=== PATIENT | male | born 1955 | race Caucasian/White ===

== ENCOUNTER → 2016-11-04 | Outpatient (CLI) | payer BC ==
--- NOTE | 2016-11-04 13:50 | US ---
EXAMINATION TYPE: US venous doppler duplex LE RT DATE OF EXAM: 11/04/2016 1:38 PM COMPARISON: Prior right lower extremity venous ultrasound July 08, 2016 CLINICAL HISTORY: I82.409 Deep venous thrombosis Right lower extremity. Assess known thrombus to get off of thinners SIDE PERFORMED: Right TECHNIQUE: The lower extremity deep venous system is examined utilizing real time linear array sonog esteban with graded compression, doppler sonography and color-flow sonography. VESSELS IMAGED: External Iliac Vein (EIV) Common Femoral Vein Deep Femoral Vein Greater Saphenous Vein * Femoral Vein Popliteal Vein Small Saphenous Vein * Proximal Calf Veins (* superficial vessels) Right Leg: Appears to have chronic thrombus within proximal femoral vein, no acute process seen toda y contacted office and informed them patient refused looking at left leg today and that only chronic thrombus remains within right leg at one level Grayscale, color doppler, spectral doppler imaging performed of the deep veins of the lower extremiti es. There is normal flow, compressibility, vascular waveforms the right lower extremity with thick s ections and proximal superficial femoral vein that shows some chronic nonocclusive thrombus IMPRESSION: Interval improvement from prior exam with small amount of residual chronic thrombus in th e right proximal superficial femoral vein. No new acute DVT identified.
== END ==
LOC: RADUSWWP 12:31
PROVIDERS: ATTEND Family Medicine
DX: I82.511 Chronic embolism and thrombosis of right femoral vein (principal)

== ENCOUNTER → 2018-10-01 | Outpatient (CLI) | payer BC ==
[2018-10-01 10:27] LABS: Basophils # (A) 0.1 k/uL (0-0.2); Basophils % (A) 1 %; Eosinophils # (A) 0.4 k/uL (0-0.7); Eosinophils % (A) 6 %; HCT 43.6 % (39.0-53.0); HGB 14.8 gm/dL (13.0-17.5); Lymphocytes # (A) 1.7 k/uL (1.0-4.8); Lymphocytes % (A) 27 %; MCH 31.9 pg (25.0-35.0); MCHC 33.8 g/dL (31.0-37.0); MCV 94.2 fL (80.0-100.0); Mean Platelet Volume 6.1; Monocytes # (A) 0.5 k/uL (0-1.0); Monocytes % (A) 7 %; Neutrophils # (A) 3.6 k/uL (1.3-7.7); Neutrophils % (A) 56 %; Platelet Count 189 k/uL (150-450); RBC 4.63 m/uL (4.30-5.90); RDW 12.5 % (11.5-15.5); WBC 6.4 k/uL (3.8-10.6)
[2018-10-01 10:37] LABS: Appearance,Urine Cloudy (Clear); Bilirubin,Urine Negative (Negative); Blood,Urine Negative (Negative); Color,Urine Yellow; Glucose,Urine (UA) Negative (Negative); Ketones,Urine Negative (Negative); Leukocyte Esterase,Urine Negative (Negative); Mucus,Urine Rare /hpf; Nitrite,Urine Negative (Negative); Protein,Urine Negative (Negative); RBC,Urine <1 /hpf (0-5); Specific Gravity,Urine 1.018 (1.001-1.035); Squamous Epithelial Cell,Urine 1 /hpf (0-4); Urobilinogen,Urine <2.0 mg/dL (<2.0); WBC,Urine 1 /hpf (0-5)
[2018-10-01 11:54] LABS: Erythrocyte Sedimentation Rate 15 mm/hr (0-15)
[2018-10-01 16:50] LABS: Protein, Total 6.7 g/dL (6.2-8.2); Rheumatoid Factor 24 IU/mL (0-15); Streptolysin O Ab(ASO) 79 IU/mL (0-200)
[2018-10-01 16:55] LABS: ALT 33 U/L (10-49); AST 33 U/L (14-35); Albumin/Globulin Ratio 1.96 (1.60-3.17); Alkaline Phosphatase 60 U/L (41-126); Bilirubin, Conjugated <0.20 mg/dL (0.20-0.40); Calcium 9.6 mg/dL (8.7-10.3); Carbon Dioxide 24.1 mmol/L (21.6-31.8); Chloride 105 mmol/L (96-109); Creatine Kinase 153 U/L (35-257); Globulin 2.3 g/dL (1.6-3.3); Glucose 132 mg/dL (70-110); LDH 211 U/L (120-246); Phosphorus 3.4 mg/dL (2.4-5.1); Potassium 4.4 mmol/L (3.5-5.5); Sodium 138 mmol/L (135-145); Total Bilirubin 0.3 mg/dL (0.3-1.2); Total Protein 6.8 g/dL (6.2-8.2); Uric Acid 9.3 mg/dL (3.7-8.7)
[2018-10-01 16:59] LABS: Vitamin D 25 Hydroxy 42.3 ng/mL (30.0-100.0)
[2018-10-01 17:00] LABS: Parathyroid Hormone Intact 41.1 pg/mL (14.0-72.0)
[2018-10-01 17:48] LABS: Cyclic Citrullinated Pep IgG NEGATIVE (NEGATIVE); HIV 1 AB Non-Reactive (Non-Reactive); HIV AB P24 Non-Reactive (Non-Reactive); HIV P24 AG Non-Reactive (Non-Reactive)
[2018-10-01 18:12] LABS: Hepatitis C IgG Antibody Non-Reactive (Non-Reactive)
[2018-10-01 21:26] LABS: Hemoglobin A1C 6.6 % (4.0-6.0)
[2018-10-02 12:33] LABS: HLA B27 NEGATIVE
[2018-10-02 15:01] LABS: Angiotensin-1 Converting Enz. 25 U/L (8-52)
[2018-10-04 10:12] LABS: Hepatits C Virus RNA Not detected (Not detected); Hepatits C Virus RNA, Quant <12 IU/mL (<12); LOG HCV IU/mL <1.08 (<1.08)
[2018-10-04 18:34] LABS: Vitamin D, 1, 25-Dihydroxy 22 pg/mL (20 - 79)
[2018-10-05 10:19] LABS: Lyme IgG/IgM 0.1 Index
== END | disposition home or self-care (01) ==
LOC: LABWHC1 09:36
PROVIDERS: ATTEND Physical Medicine & Rehabilitation
DX: E78.5 Hyperlipidemia, unspecified (principal); I10 Essential (primary) hypertension; M51.16 Intervertebral disc disorders with radiculopathy, lumbar region; M51.17 Intervertebral disc disorders with radiculopathy, lumbosacral region; M47.26 Other spondylosis with radiculopathy, lumbar region; R20.2 Paresthesia of skin; M54.5 Low back pain; Z68.36 Body mass index [BMI] 36.0-36.9, adult
CPT/HCPCS: 36415; 80048; 80076; 81001; 82164; 82306; 82310; 82550; 82553; 82607; 82652; 83036; 83516; 83615; 83970; 84100; 84165; 84207; 84425; 84439; 84443; 84550; 85025; 85652; 86038; 86060; 86200; 86235; 86431; 86592; 86618; 86803; 86812; 87390; 87522

== ENCOUNTER → 2021-10-02 | Outpatient (CLI) | payer OTHER ==
[2021-10-02 10:39] VITALS: BP 143/76; PULSE 56; RESP 17; TEMP 97.9
--- NOTE | 2021-10-02 10:50 | P.CON ---
Consult Note - . Consult date: 10/02/21 Assessment/Plan:: HISTORY OF PRESENT ILLNESS: 66 -year-old male with at side as a referral from Dr. Albright presents today with lumbar DDD, spondylosis and facet arthropathy for evaluation. Patient states he has back pain for the last 10 years, 8 out of 10 in intensity, constant, achy, sharp with radiation of pain on the left side of his lumbar spine and down the back of his left lower extremity. Pain is provoked with standing and walking for periods of 30 minutes or more. 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 Pain is relieved with medications (Oxycodone IR 20mg #[address] Albright), injections in the past, fishing, massage from his and rest. Past Medical History: Deep Vein Thrombosis (DVT), Hypertension, DM II Past Surgical History / Comment(s): LT GRACE, 05-12-16 TOTAL RIGHT HIP R EPLACEMENT. RT KNEE SX. RT SHOULDER SX. COLONOSCOPY Social History: Former Tobacc User. Daily ETOH use. No illicit drug use. . 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 Family History: Mother- DM. Father- Spinal Meningitis/ . All: PCN, Ibuprofen. Meds: See list REVIEW OF ORGAN SYSTEMS: CONSTITUTIONAL: No fevers or chills. No recent weight loss. HEENT: No visual acuity loss, eye pain, difficulties with hearing. No nosebleeds. No difficulty swallowing. RESPIRATORY: Denies any troubles with breathing or dyspnea on exertion. CARDIOVASCULAR: Denies any chest pain, palpitations, or recent heart attacks. GASTROINTESTINAL: Denies fatty food intolerance. Has change in bowel habits and gas bloat. GENITOURINARY: Denies any blood in urine. Has increased urinary frequency. NEUROLOGICAL: + numbness and tingling along the distal extremities. No seizure disorders or headaches. MUSCULOSKELETAL: + back pain SKIN: No skin cancer. No rash. PSYCHIATRIC: Denies current depression or suicidal thoughts. ENDOCRINE: Denies current thyroid disorders. Denies any blood sugar glucose intolerance. HEME/LYMPHATIC: Denies any lumps and bumps around the neck. History of deep venous thrombosis. ALLERGY/IMMUNOLOGY: No immunoglobulin therapy. No immune deficiencies. BREAST: Denies current breast lumps, pain or nipple discharge. Physical Examinations : Constitutional : Cooperative , not in acute distress . HEENT: Neck supple. No Lymphadenopathy. Normal thyroid size . Eyes no ptosis , no icterus, no photophobia . Hearing intact. Normal oropharynx. No Thrush. Respiratory : Chest clear to auscultations bilaterally. No wheezing. No rhonchi. Cardiovascular : Regular rate and rhythm , S1 / S2. No S3 . No S4. Gastrointestinal : Abdomen soft. No tenderness. Bowel sounds x 4. No organomegaly . Genitourinary : Deferred. Neurologic : Cranial nerve II to XII intact. No focal neurological deficits. Psychiatric : alert & oriented x 3. Matching mood & appropriate affect. Judgment & insight intact. Lymphatic No Lymphadenopathy. Musculoskeletal : Cervical Spine Motor strength in the deltoid and biceps: Normal right side. Normal Left side Motor strength biceps and the wrist extensors: Normal right side . Normal left side Motor strength in the triceps muscle: Normal right side. Normal left side Deep tendon reflexes: Normal at the biceps. Normal at Brachioradialis. Normal at triceps Cervical facet loading test: positive bilaterally Spurling test: positive bilaterally Neck distraction test: positive bilater ally Joselyn sign: positive bilaterally Lumbar spine Motor strength lower extremities ,thigh and legs 5/5 Right side , 5/5 Left side Deep tendon reflexes : Normal Knee Jerk. Normal Ankle Jerk Vertebral body tenderness over L4, L5 Lumbar facet Loading Test: positive Right / positive Left over bilateral L4-L5, L5-S1, left greater than right Accompanying paraspinal muscle spasms within L4-L5, L5-S1 Range of motion of the lumbar spine Flexion 30 degrees, extension 10 degrees Straight Leg Raise test: Left/ Right positive at 30 degree Raegan test: positive right / positive left. Severe tenderness over the Sacroiliac joint on the Right / Left sides Gaenslen test: positive bilaterally Seated flexion test: positive bilaterally. Assessment/ Plan : Need to obtain MRI of the lumbar spine. Patient needs medical clearance for Xarelto. May return to our office for reevaluation. All questions answered. I have spent greater than 50 minutes on patient care today. Dr Hutchins was available by phone for the evaluation of this patient. The time was used to review the medical records including relevant urine studies and Prescription h istory (MAPs), review of the available imaging, evaluation and examination of the patient, coordination of care with the medical staff and if applicable referring physicians, as well as creation of the medical record PQRS Measure Charge Sheet Mode of Arrival: Ambulatory - Pain Location Left Lower Back Non-Pharmacological Interventions: Inactivity, Sitting Pharmacological Interventions: PRN Medication PQRS Narrative: Smoking Status Former smoker Blood Pressure 143/76 Pain Intensity [Left Lower 8 Back] Scale Used Numeric (1 - 10) Hx Alcohol Use (MH) No Home Medications: Ambulatory Orders Cholecalciferol [Vitamin D3 (25 Mcg = 1000 Iu)] 5,000 unit PO DAILY 05/08/16 Enalapril/Hydrochlorothiazide [Vaseretic 10-25 mg] 1 tab PO DAILY 05/08/16 Fenofibrate Nanocrystallized [Tricor] 145 mg PO DAILY 05/08/16 Multivitamin [Men's Multi-Vitamin] 1 tab PO DAILY 05/08/16 Pregabalin [Lyrica] 300 mg PO BID 05/08/16 Simvastatin [Zocor] 40 mg PO HS 05/08/16 atenoloL [Tenormin] 25 mg PO BID 05/08/16 ALPRAZolam [Xanax] 1 mg PO BID PRN 07/08/16 HYDROcodone/APAP 10-325MG [[facility] 10-325] 1 tab PO Q4HR PRN 07/08/16 Rivaroxaban [Xarelto] 15 mg PO BID-W/MEALS tab 07/10/16
== END ==
LOC: PNWHC3 09:35
PROVIDERS: ATTEND Physician Assistant Medical
DX: M51.36 Other intervertebral disc degeneration, lumbar region (principal); M47.816 Spondylosis without myelopathy or radiculopathy, lumbar region; Z87.891 Personal history of nicotine dependence; Z86.718 Personal history of other venous thrombosis and embolism; I10 Essential (primary) hypertension; E11.9 Type 2 diabetes mellitus without complications; Z88.6 Allergy status to analgesic agent; Z88.0 Allergy status to penicillin
CPT/HCPCS: 99211

== ENCOUNTER 2022-10-20 16:07 | Observation (INO) | payer MEDICARE, OTHER ==
--- NOTE | 2022-10-20 16:41 | ED ---
General Adult HPI - General Chief complaint: Shortness of Breath Stated complaint: Afib/congest heart failure Time Seen by Provider: 10/20/22 16:25 Source: patient, RN notes reviewed Mode of arrival: ambulatory Limitations: no limitations - History of Present Illness Initial comments: Patient is a pleasant 67-year-old male presenting to the emergency Department with shortness of breath. Symptoms have been occurring over a couple weeks now. No chest pain. No palpitations. Patient did see his doctor in [place] with concern for new-onset A. fib and possibly CHF. No history of either previously. Patient has had some leg edema. Patient's dyspnea does worsen with lying flat as well as exertion - Related Data Home Medications Medication Instructions Recorded Confirmed Enalapril/Hydrochlorothiazide 1 tab PO DAILY 05/08/16 10/20/22 [Vaseretic 10-25 mg] atenoloL [Tenormin] 25 mg PO BID 05/08/16 10/20/22 Alpha Lipoic Acid 1,200 mg PO BID 10/20/22 10/20/22 Aspirin EC [Ecotrin Low Dose] 81 mg PO DAILY 10/20/22 10/20/22 Atorvastatin [Lipitor] 40 mg PO DAILY 10/20/22 10/20/22 Cholecalciferol [Vitamin D3 (125 125 mcg PO BID 10/20/22 10/20/22 Mcg = 5000 Iu)] Magnesium 500 mg PO BID 10/20/22 10/20/22 Repaglinide [Prandin] 1 mg PO AC-TID 10/20/22 10/20/22 Rivaroxaban [Xarelto] 2.5 mg PO DAILY 10/20/22 10/20/22 Tamsulosin [Flomax] 0.4 mg PO DAILY 10/20/22 10/20/22 Turmeric Root Extract [Turmeric] 1,000 mg PO BID 10/20/22 10/20/22 metFORMIN HCL 500 mg PO BID 10/20/22 10/20/22 Allergies Allergy/AdvReac Type Severity Reaction Status Date / Time Penicillins Allergy Rash/Hives Verified 10/20/22 17:01 ibuprofen AdvReac BURING Verified 10/20/22 17:01 SENSATION IN ARMS Review of Systems ROS Statement: Those systems with pertinent positive or pertinent negative responses have been documented in the HPI. ROS Other: All systems not noted in ROS Statement are negative. Constitutional: Denies: chills Eyes: Denies: eye pain ENT: Denies: ear pain Respiratory: Reports: dyspnea Cardiovascular: Reports: dyspnea on exertion, orthopnea, edema Endocrine: Reports: fatigue Gastrointestinal: Denies: abdominal pain Genitourinary: Denies: dysuria Skin: Denies: rash Neurological: Denies: weakness Past Medical History Past Medical History: Deep Vein Thrombosis (DVT), Hypertension Additional Past Medical History / Comment(s): back pain, History of Any Multi-Drug Resistant Organisms: None Reported Additional Past Surgical History / Comment(s): LT GRACE, 05-12-16 TOTAL RIGHT HIP REPLACEMENT. RT KNEE SX. RT SHOULDER SX. COLONOSCOPY Past Anesthesia/Blood Transfusion Reactions: No Reported Reaction Past Psychological History: No Psychological Hx Reported Smoking Status: Never smoker Past Alcohol Use History: Daily Past Drug Use History: None Reported - Past Family History Mother Family Medical History: Diabetes Mellitus Father Additional Family Medical History / Comment(s): FROM SPINAL MENNINGITIS General Exam Limitations: no limitations General appearance: alert, in no apparent distress Head exam: Present: normocephalic Eye exam: Present: normal appearance Neck exam: Present: normal inspection Respiratory exam: Present: decreased breath sounds Cardiovascular Exam: Present: irregular rhythm GI/Abdominal exam: Present: soft. Absent: tenderness Extremities exam: Present: pedal edema. Absent: calf tenderness Neurological exam: Present: alert Psychiatric exam: Present: normal affect, normal mood Skin exam: Present: normal color Course Vital Signs 10/20/22 10/20/22 16:18 16:47 Temperature 97.4 F L Pulse Rate 100 77 Respiratory 18 20 Rate Blood Pressure 128/73 120/86 O2 Sat by Pulse 94 L 93 L Oximetry EKG Findings - EKG Results: EKG: interpreted by ERMD (Low QRS voltage. Septal Q waves.), normal axis, normal ST/T EKG shows: atrial fibrillation Medical Decision Making - Medical Decision Making Was pt. sent in by a medical professional or institution (, PA, PATHOLOGY TECHNICIAN, urgent care, hospital, or correction...) When possible be specific @ -Patient was sent in by his primary care physician in [facility] Did you speak to anyone other than the patient for history (EMS, parent, family, police, friend...)? What history was obtained from this source @ -No Did you review nursing and triage notes (agree or disagree)? Why? @ -I reviewed and agree with nursing and triage notes Were old charts reviewed (outside hosp., previous admission, EMS record, old EKG, old radiological studies, urgent care reports/EKG's, correction records)? Report findings @ -No old charts were reviewed Differential Diagnosis (chest pain, altered mental status, abdominal pain women, abdominal pain men, vaginal bleeding, weakness, fever, dyspnea, syncope, headache, dizziness, GI bleed, back pain, seizure, CVA, palpatations, mental health)? @ -Differential Dyspnea: Coronary syndrome, arrhythmia, tamponade, asthma, COPD, pulmonary embolism, pneumonia, pneumothorax, pulmonary effusion, anaphylaxis, diabetic ketoacidosis, flailed chest, pulmonary contusion, diaphragmatic rupture, anemia, neuromuscular, this is not meant to be an all-inclusive list. EKG interpreted by me (3pts min.). @ -As above X-rays interpreted by me (1pt min.). @ -Chest x-ray does show right greater than left effusions CT interpreted by me (1pt min.). @ -None done U/S interpreted by me (1pt. min.). @ -None done What testing was considered but not performed or refused? (CT, X-rays, U/S, labs)? Why? @ -None What meds were considered but not given or refused? Why? @ -None Did you discuss the management of the patient with other professionals (professionals i.e. , PA, PATHOLOGY TECHNICIAN, lab, RT, psych nurse, social science research assistant, lead neurodiagnostic technologist, teacher, booking police officer, family service caseworker)? Give summary @ -Case was discussed with practitioner Sandra Alvarado, who will admit covering hospital call with Dr. Vaca Was smoking cessation discussed for >3mins.? @ -No Was critical care preformed (if so, how long)? @ -No Were there social determinants of health that impacted care today? How? (Homelessness, low income, unemployed, alcoholism, drug addiction, transportation, low edu. Level, literacy, decrease access to med. care, senior living, rehab)? @ -No Was there de-escalation of care discussed even if they declined (Discuss DNR or withdrawal of care, Hospice)? DNR status @ -No What co-morbidities impacted this encounter? (DM, HTN, Smoking, COPD, CAD, Cancer, CVA, ARF, Chemo, Hep., AIDS, mental health diagnosis, sleep apnea, morbid obesity)? @ -None Was patient admitted / discharged? Hospital course, mention meds given and route, prescriptions, significant lab abnormalities, going to OR and other pertinent info. @ -Patient will be admitted with new-onset A. fib and CHF with cardiology consult. Patient will receive Lasix. Patient is already anticoagulated and rate is controlled. Undiagnosed new problem with uncertain prognosis? @ -No Drug Therapy requiring intensive monitoring for toxicity (Heparin, Nitro, Insulin, Cardizem)? @ -No Were any procedures done? @ -No Diagnosis/symptom? @ -New-onset A. fib, new-onset CHF Acute, or Chronic, or Acute on Chronic? @ -Acute, acute Uncomplicated (without systemic symptoms) or Complicated (systemic symptoms)? @ -Atrial fibrillation is Located with congestive heart failure Side effects of treatment? @ -No Exacerbation, Progression, or Severe Exacerbation? @ -No Poses a threat to life or bodily function? How? (Chest pain, USA, SD, pneumonia, PE, COPD, DKA, ARF, appy, cholecystitis, CVA, Diverticulitis, Homicidal, Suicidal, threat to staff... and all critical care pts) @ -No - Lab Data Result diagrams: 10/20/22 16:46 10/20/22 16:46 Lab Results 10/20/22 10/20/22 10/20/22 Range/Units 16:46 16:46 16:46 WBC 7.2 (3.8-10.6) k/uL RBC 5.05 (4.30-5.90) m/uL Hgb 16.0 (13.0-17.5) gm/dL Hct 47.4 (39.0-53.0) % MCV 93.9 (80.0-100.0) fL MCH 31.7 (25.0-35.0) pg MCHC 33.7 (31.0-37.0) g/dL RDW 13.1 (11.5-15.5) % Plt Count 221 (150-450) k/uL MPV 7.3 Neutrophils % 64 % Lymphocytes % 21 % Monocytes % 8 % Eosinophils % 5 % Basophils % 0 % Neutrophils # 4.6 (1.3-7.7) k/uL Lymphocytes # 1.5 (1.0-4.8) k/uL Monocytes # 0.6 (0-1.0) k/uL Eosinophils # 0.3 (0-0.7) k/uL Basophils # 0.0 (0-0.2) k/uL PT 10.8 (9.0-12.0) sec INR 1.0 (<1.2) APTT 25.7 (22.0-30.0) sec Sodium 136 L (137-145) mmol/L Potassium 4.4 (3.5-5.1) mmol/L Chloride 104 (98-107) mmol/L Carbon Dioxide 28 (22-30) mmol/L Anion Gap 4 mmol/L BUN 23 H (9-20) mg/dL Creatinine 1.02 (0.66-1.25) mg/dL Est GFR (CKD-EPI)AfAm 87 (>60 ml/min/1.73 sqM) Est GFR (CKD-EPI)NonAf 75 (>60 ml/min/1.73 sqM) Glucose 121 H (74-99) mg/dL Plasma Lactic Acid Juan Carlos (0.7-2.0) mmol/L Calcium 8.4 (8.4-10.2) mg/dL Magnesium 1.7 (1.6-2.3) mg/dL Total Bilirubin 0.5 (0.2-1.3) mg/dL AST 30 (17-59) U/L ALT 19 (4-49) U/L Alkaline Phosphatase 79 (38-126) U/L Troponin I (0.000-0.034) ng/mL NT-Pro-B Natriuret Pep pg/mL Total Protein 5.2 L (6.3-8.2) g/dL Albumin 2.4 L (3.5-5.0) g/dL TSH 3.360 (0.465-4.680) mIU/L Free T4 0.71 L (0.78-2.19) ng/dL Free T3 pg/mL 4.3 (2.8-5.3) pg/ml 10/20/22 10/20/22 10/20/22 Range/Units 16:46 16:46 16:46 WBC (3.8-10.6) k/uL RBC (4.30-5.90) m/uL Hgb (13.0-17.5) gm/dL Hct (39.0-53.0) % MCV (80.0-100.0) fL MCH (25.0-35.0) pg MCHC (31.0-37.0) g/dL RDW (11.5-15.5) % Plt Count (150-450) k/uL MPV Neutrophils % % Lymphocytes % % Monocytes % % Eosinophils % % Basophils % % Neutrophils # (1.3-7.7) k/uL Lymphocytes # (1.0-4.8) k/uL Monocytes # (0-1.0) k/uL Eosinophils # (0-0.7) k/uL Basophils # (0-0.2) k/uL PT (9.0-12.0) sec INR (<1.2) APTT (22.0-30.0) sec Sodium (137-145) mmol/L Potassium (3.5-5.1) mmol/L Chloride (98-107) mmol/L Carbon Dioxide (22-30) mmol/L Anion Gap mmol/L BUN (9-20) mg/dL Creatinine (0.66-1.25) mg/dL Est GFR (CKD-EPI)AfAm (>60 ml/min/1.73 sqM) Est GFR (CKD-EPI)NonAf (>60 ml/min/1.73 sqM) Glucose (74-99) mg/dL Plasma Lactic Acid Juan Carlos 1.7 (0.7-2.0) mmol/L Calcium (8.4-10.2) mg/dL Magnesium (1.6-2.3) mg/dL Total Bilirubin (0.2-1.3) mg/dL AST (17-59) U/L ALT (4-49) U/L Alkaline Phosphatase (38-126) U/L Troponin I <0.012 (0.000-0.034) ng/mL NT-Pro-B Natriuret Pep 419 pg/mL Total Protein (6.3-8.2) g/dL Albumin (3.5-5.0) g/dL TSH (0.465-4.680) mIU/L Free T4 (0.78-2.19) ng/dL Free T3 pg/mL (2.8-5.3) pg/ml Disposition Clinical Impression: Congestive heart failure, New onset a-fib Disposition: ADMITTED IP TO THIS HOSP Is patient prescribed a controlled substance at d/c from ED?: No Referrals: Tomasz Canales MD [Primary Care Provider] - 1-2 days Time of Disposition: 18:15
[2022-10-20 17:00] LABS: Basophils % (A) 0 %; Eosinophils # (A) 0.3 k/uL (0-0.7); Eosinophils % (A) 5 %; HCT 47.4 % (39.0-53.0); Lymphocytes # (A) 1.5 k/uL (1.0-4.8); Lymphocytes % (A) 21 %; MCH 31.7 pg (25.0-35.0); MCHC 33.7 g/dL (31.0-37.0); MCV 93.9 fL (80.0-100.0); Mean Platelet Volume 7.3; Monocytes # (A) 0.6 k/uL (0-1.0); Monocytes % (A) 8 %; Neutrophils # (A) 4.6 k/uL (1.3-7.7); Neutrophils % (A) 64 %; Platelet Count 221 k/uL (150-450); RBC 5.05 m/uL (4.30-5.90); RDW 13.1 % (11.5-15.5); WBC 7.2 k/uL (3.8-10.6)
[2022-10-20 17:10] LABS: Partial Thromboplastin Time 25.7 sec (22.0-30.0); Prothrombin Time 10.8 sec (9.0-12.0)
[2022-10-20 17:12] LABS: Albumin 2.4 g/dL (3.5-5.0); Calcium 8.4 mg/dL (8.4-10.2); Magnesium 1.7 mg/dL (1.6-2.3); Potassium 4.4 mmol/L (3.5-5.1); Total Bilirubin 0.5 mg/dL (0.2-1.3); Total Protein 5.2 g/dL (6.3-8.2)
--- NOTE | 2022-10-20 17:20 | XR ---
EXAMINATION TYPE: XR chest 2V DATE OF EXAM: 10/20/2022 COMPARISON: NONE HISTORY: Difficulty breathing TECHNIQUE: 2 views FINDINGS: There is mild blunting of the costophrenic angles. Heart size is normal. No heart failure. There are no hilar masses. Bony thorax is intact. There are chest leads. IMPRESSION: There are small bilateral pleural effusions. Normal heart.
[2022-10-20 17:29] LABS: T4, Free (Free Thyroxine) 0.71 ng/dL (0.78-2.19)
[2022-10-20] MEDS ORDERED: ASPIRIN 325 MG TAB PO STA ×3 (18:15→23:23)
[2022-10-20] MEDS ORDERED: FUROSEMIDE 10 MG/ML 4 ML VIAL IV SCH (18:15)
[2022-10-20] MEDS: NITROGLYCERIN OINT 1 INCH/GM PACKET TOPICAL SCH ×2 (19:53→23:08)
[2022-10-20 20:24] LABS: Glucose,Whole Blood 140 mg/dL (70-110)
[2022-10-20] MEDS ORDERED: NON FORMULARY DRUG (Turmeric Root Extract [Turmeric] 500 MG Tablet) PO SCH (21:00)
[2022-10-20 23:06] VITALS: RESP 16
[2022-10-20] MEDS: atenoloL 25 MG TAB PO SCH (23:08)
[2022-10-20] MEDS: CHOLECALCIFEROL 125 MCG (5000 IU) TABLET PO SCH (23:08)
[2022-10-20] MEDS: MAGNESIUM OXIDE 400 MG TAB PO SCH (23:08)
[2022-10-21] MEDS: ATORVASTATIN 40 MG TAB PO SCH ×2 (00:13→20:56)
[2022-10-21] MEDS: TAMSULOSIN 0.4 MG CAP.ER.24H PO SCH ×2 (00:13→08:56)
[2022-10-21] MEDS ORDERED: CALCIUM CARBONATE 500 MG CHEWABLE PO PRN (00:50)
[2022-10-21 05:24] LABS: Glucose,Whole Blood 146 mg/dL (70-110)
[2022-10-21] MEDS: NITROGLYCERIN OINT 1 INCH/GM PACKET TOPICAL SCH ×3 (05:34→17:25)
[2022-10-21] MEDS ORDERED: DEXTROSE 50% SYRINGE 50 ML IVP PRN ×2 (07:02)
[2022-10-21 07:42] LABS: HCT 40.6 % (39.0-53.0); HGB 13.6 gm/dL (13.0-17.5); MCH 31.8 pg (25.0-35.0); MCHC 33.4 g/dL (31.0-37.0); Mean Platelet Volume 7.4; Platelet Count 211 k/uL (150-450); RBC 4.27 m/uL (4.30-5.90); RDW 13.3 % (11.5-15.5); WBC 6.7 k/uL (3.8-10.6)
[2022-10-21] MEDS: INSULIN ASPART (NovoLOG) 100 UNIT/ML VIAL SQ SCH ×4 (07:58→20:48)
[2022-10-21 08:11] LABS: Albumin 1.9 g/dL (3.5-5.0); Total Bilirubin 0.4 mg/dL (0.2-1.3); Total Protein 4.2 g/dL (6.3-8.2)
[2022-10-21] MEDS: MAGNESIUM OXIDE 400 MG TAB PO SCH ×2 (08:55→20:56)
[2022-10-21] MEDS: ASPIRIN 81 MG PO SCH (08:55)
[2022-10-21] MEDS: REPAGLINIDE 1 MG TAB PO SCH ×3 (08:55→17:27)
[2022-10-21] MEDS: FUROSEMIDE 10 MG/ML 4 ML VIAL IV SCH ×2 (08:56→20:56)
[2022-10-21] MEDS: CHOLECALCIFEROL 125 MCG (5000 IU) TABLET PO SCH ×2 (08:56→20:56)
[2022-10-21] MEDS: lisinopriL 20 MG TAB PO SCH (08:57)
[2022-10-21] MEDS: atenoloL 25 MG TAB PO SCH ×2 (08:57→20:56)
[2022-10-21] MEDS: hydroCHLOROthiazide 25 MG TAB PO SCH (08:58)
[2022-10-21] MEDS ORDERED: TAMSULOSIN 0.4 MG CAP.ER.24H PO SCH (09:00)
[2022-10-21] MEDS ORDERED: ASPIRIN 325 MG TAB PO SCH (09:00)
[2022-10-21] MEDS ORDERED: ATORVASTATIN 40 MG TAB PO SCH (09:00)
[2022-10-21] MEDS ORDERED: RIVAROXABAN 2.5 MG TABLET PO SCH (09:00)
--- NOTE | 2022-10-21 09:28 | CA ---
Transthoracic Echo Report Name: Kamran Brandon Age: 67 Gender: M : 1955 Exam Date: 10/21/2022 06:56 Exam Location: [facility] Ht (in): 68 Wt (lb): 275 Ordering Physician: Génesis Vaca MD Attending/Referring Phys: Project Director Mauricio Apple RDCS Procedure CPT: Indications: lv fxn, dyspnea, edema new onset afib and chf Cardiac Hx: Technical Quality: Fair Contrast 1: Total Dose (mL): Contrast 2: Total Dose (mL): MEASUREMENTS (Male / Female) Normal Values 2D ECHO LA Volume 43.9 cm??? 18 - 58 / 22 - 52 cm??? M-MODE Aortic Root Diameter MM 3.4 cm AV Cusp Separation MM 1.8 cm DOPPLER AV Peak Velocity 122.9 cm/s AV Peak Gradient 6.0 mmHg LVOT Peak Velocity 96.9 cm/s LVOT Peak Gradient 3.8 mmHg FINDINGS Left Ventricle Left ventricular hypertrophy. Left ventricular cavity size normal. Left ventricular ejection fraction is estimated at 55-60 %. Right Ventricle Normal right ventricular size. Normal right ventricular global systolic function. Right ventricular systolic pressure within normal limits. Right Atrium Normal right atrial size. Left Atrium Normal left atrial size. Mitral Valve No mitral regurgitation. Aortic Valve Trileaflet aortic valve. No aortic regurgitation. No aortic stenosis. Tricuspid Valve No tricuspid regurgitation. Pulmonic Valve Pulmonic valve not well visualized. Pericardium Echo free space anterior to the right ventricle likely represents a fat pad. Aorta Normal size aortic root and proximal ascending aorta. CONCLUSIONS Left ventricular ejection fraction 55-60% No mitral regurgitation No pericardial effusion Previewed by: Dr. Arnold Fernando DO (Electronically Signed) Final Date: 21 October 2022 09:27
[2022-10-21 11:59] VITALS: BMI 41.9
[2022-10-21 12:00] LABS: Glucose,Whole Blood 106 mg/dL (70-110)
--- NOTE | 2022-10-21 12:16 | P.CRDCN ---
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 He has a past medical history of hypertension, hyperlipidemia, diabetes mellitus type 2, DVT, chronic back pain, remote history of tobacco use quit in 2000. We have been asked to evaluate the patient for new onset of atrial fibrillation and CHF. Patient presented to [facility] emergency center due to shortness of breath and lower extremity edema for 3 weeks. His initial blood pressure 143/76. Regarding alcohol use. Patient states he drinks 2-3 beers per 2 weeks. EKG atrial fibrillation ventricular rate of 92, telemetry atrial fibrillation with controlled rate Chest x-ray: Small bilateral pleural effusions CBC within normal limits. INR 1.0. Sodium 136, potassium 4.4, BUN 23 and creatinine 1.02. Magnesium 1.7. Liver function tests normal. Lactic acid 1.7. Troponin negative 3. TSH 3.360. ProBNP 419 Home cardiac medications: Aspirin 81 mg daily, atenolol 25 mg twice daily, atorvastatin 40 mg daily, Vasotec reticulocyte 1025 milligrams 1 daily, Xarelto 2.5 mg daily, magnesium 500 mg twice daily. Review Of Systems: At the time of my evaluation: Constitutional: No fever, no chills. No weakness, fatigue or lethargy. EENT: No headache. No dizziness. Lungs: Reports shortness of breath, cough, no sputum production. No wheezing. Cardiovascular: No chest pain, reports lower extremity edema. No palpitations. No paroxysmal nocturnal dyspnea. No orthopnea. No lightheadedness or dizziness. No syncopal episodes. Abdominal: No abdominal pain. No nausea, vomiting. No diarrhea. No constipation. No bloody or tarry stools. Genitourinary: No dysuria.. No urinary retention. Musculoskeletal: No myalgias. No muscle weakness, no frequent falls. No back pain. No neck pain. Integumentary: No wounds. No rash. No unusual bruising. Neurologic: No aphasia. No facial droop. No change in mentation. No head injury. No headache. Physical examination: Gen: This is a morbidly obese 67-year-old male. He is resting but appears to be comfortable. VS: reviewed HEENT: Head is atraumatic, normocephalic. Pupils equal, round. Sclerae is anicteric. NECK: Supple. No JVD. . LUNGS: Clear to auscultation. No wheezes or rhonchi. No intercostal retractions. HEART: Irregular rate and rhythm. No murmur. ABDOMEN: Soft No tenderness. EXTREMITIES: Bilateral pedal edema. No calf tenderness. NEUROLOGICAL: Patient is awake, alert and oriented x3. Assessment: New onset paroxysmal atrial fibrillation, rate controlled Hypertension Hyperlipidemia Diabetes mellitus type 2 History of DVT Remote history of tobacco use Daily alcohol use Plan: Increase Xarelto 20 mg daily Continue home cardiac medications Continue IV Lasix 40 mg every 12 hours for an additional 24 hours Obtain 2-D echocardiogram and Doppler study to assess cardiac structure and function Further recommendations to follow based upon clinical course Thank you kindly for this consultation. Nurse practitioner note has been reviewed, I agree with documented findings and plan of care. Patient was seen and examined. Past Medical History Past Medical History: Diabetes Mellitus, Deep Vein Thrombosis (DVT), Hypertension, Osteoarthritis (OA), Prostate Disorder Additional Past Medical History / Comment(s): back pain, MRI scheduled for 10/28/22 History of Any Multi-Drug Resistant Organisms: None Reported Additional Past Surgical History / Comment(s): bilateral total hip replacement. 200705-12-16 TOTAL RIGHT HIP REPLACEMENT. RT KNEE SX. RT SHOULDER SX. COLONOSCOPY Past Anesthesia/Blood Transfusion Reactions: No Reported Reaction Past Psychological History: No Psychological Hx Reported Smoking Status: Former smoker Past Alcohol Use History: Occasional Past Drug Use History: None Reported - Past Family History Mother Family Medical History: Diabetes Mellitus Father Additional Family Medical History / Comment(s): FROM [facility] [place] Medications and Allergies Home Medications Medication Instructions Recorded Confirmed Type Enalapril/Hydrochlorothiazide 1 tab PO DAILY 05/08/16 10/20/22 History [Vaseretic 10-25 mg] atenoloL [Tenormin] 25 mg PO BID 05/08/16 10/20/22 History Alpha Lipoic Acid 1,200 mg PO BID 10/20/22 10/20/22 History Aspirin EC [Ecotrin Low Dose] 81 mg PO DAILY 10/20/22 10/20/22 History Atorvastatin [Lipitor] 40 mg PO DAILY 10/20/22 10/20/22 History Cholecalciferol [Vitamin D3 (125 125 mcg PO BID 10/20/22 10/20/22 History Mcg = 5000 Iu)] Magnesium 500 mg PO BID 10/20/22 10/20/22 History Repaglinide [Prandin] 1 mg PO AC-TID 10/20/22 10/20/22 History Rivaroxaban [Xarelto] 2.5 mg PO DAILY 10/20/22 10/20/22 History Tamsulosin [Flomax] 0.4 mg PO DAILY 10/20/22 10/20/22 History Turmeric Root Extract [Turmeric] 1,000 mg PO BID 10/20/22 10/20/22 History metFORMIN HCL 500 mg PO BID 10/20/22 10/20/22 History Allergies Allergy/AdvReac Type Severity Reaction Status Date / Time Penicillins Allergy Rash/Hives Verified 10/20/22 17:01 ibuprofen AdvReac BURING Verified 10/20/22 17:01 SENSATION IN ARMS Physical Exam Vitals: Vital Signs Temp Pulse Pulse Resp BP BP Pulse Ox 10/21/22 04:00 97.8 F 74 16 102/54 93 L 10/21/22 02:00 16 10/20/22 23:05 98.3 F 16 126/79 93 L 10/20/22 20:20 16 10/20/22 20:19 97.8 F 91 16 163/95 93 L 10/20/22 19:55 74 20 125/76 98 10/20/22 16:47 77 20 120/86 93 L 10/20/22 16:18 97.4 F L 100 18 128/73 94 L Intake and Output 10/20/22 10/21/22 10/21/22 22:59 06:59 14:59 Intake Total 210 610 Output Total 300 450 Balance -90 160 Intake: IV 10 10 Invasive Line 1 10 10 Oral 200 600 Output: Urine 300 450 Other: Voiding Method Urinal Urinal Weight 127.006 kg 125.2 kg Results 10/21/22 06:56 10/21/22 06:56 Cardiac Enzymes 10/20/22 10/20/22 10/20/22 Range/Units 16:46 16:46 19:24 AST 30 (17-59) U/L Troponin I <0.012 <0.012 (0.000-0.034) ng/mL 10/21/22 Range/Units 00:12 AST (17-59) U/L Troponin I <0.012 (0.000-0.034) ng/mL Coagulation 10/20/22 Range/Units 16:46 PT 10.8 (9.0-12.0) sec APTT 25.7 (22.0-30.0) sec CBC 10/20/22 Range/Units 16:46 WBC 7.2 (3.8-10.6) k/uL RBC 5.05 (4.30-5.90) m/uL Hgb 16.0 (13.0-17.5) gm/dL Hct 47.4 (39.0-53.0) % Plt Count 221 (150-450) k/uL Comprehensive Metabolic Panel 10/20/22 Range/Units 16:46 Sodium 136 L (137-145) mmol/L Potassium 4.4 (3.5-5.1) mmol/L Chloride 104 (98-107) mmol/L Carbon Dioxide 28 (22-30) mmol/L BUN 23 H (9-20) mg/dL Creatinine 1.02 (0.66-1.25) mg/dL Glucose 121 H (74-99) mg/dL Calcium 8.4 (8.4-10.2) mg/dL AST 30 (17-59) U/L ALT 19 (4-49) U/L Alkaline Phosphatase 79 (38-126) U/L Total Protein 5.2 L (6.3-8.2) g/dL Albumin 2.4 L (3.5-5.0) g/dL Current Medications Generic Name Dose Route Start Last Admin Trade Name Freq PRN Reason Stop Dose Admin Aspirin 81 mg 10/21/22 09:00 Aspirin 81 Mg PO DAILY FIDEL Atenolol 25 mg 10/20/22 21:00 10/20/22 23:08 Atenolol 25 Mg Tab PO 25 mg BID FIDEL Administration Atorvastatin Calcium 40 mg 10/20/22 23:45 10/21/22 00:13 Atorvastatin 40 Mg Tab PO 40 mg HS FIDEL Administration Calcium Carbonate/Glycine 500 mg 10/21/22 00:50 10/21/22 01:10 Calcium Carbonate 500 Mg Chewable PO 500 mg TID PRN Administration Heartburn Cholecalciferol 125 mcg 10/20/22 21:00 10/20/22 23:08 Cholecalciferol 125 Mcg (5000 Iu) Tablet PO 125 mcg BID [facility] Administration Dextrose/Water 25 ml 10/21/22 07:02 Dextrose 50% Syringe 50 Ml IVP PER PROTOCOL PRN Hypoglycemia Protocol Dextrose/Water 50 ml 10/21/22 07:02 Dextrose 50% Syringe 50 Ml IVP PER PROTOCOL PRN Hypoglycemia Protocol Furosemide 40 mg 10/21/22 08:00 Furosemide 10 Mg/Ml 4 Ml Vial IV Q12H [facility] Hydrochlorothiazide 25 mg 10/21/22 09:00 Hydrochlorothiazide 25 Mg Tab PO DAILY [facility] Insulin Aspart 0 unit 10/21/22 07:30 Insulin Aspart (Novolog) 100 Unit/Ml Vial SQ ACHS [facility] Protocol Lisinopril 20 mg 10/21/22 09:00 Lisinopril 20 Mg Tab PO DAILY [facility] Magnesium Oxide 400 mg 10/20/22 21:00 10/20/22 23:08 Magnesium Oxide 400 Mg Tab PO 400 mg BID [facility] Administration Nitroglycerin 1 inch 10/20/22 18:30 10/21/22 05:34 Nitroglycerin Oint 1 Inch/Gm Packet TOPICAL 10/21/22 18:31 Not Given Q6HR [facility] Repaglinide 1 mg 10/21/22 07:30 Repaglinide 1 Mg Tab PO AC-TID [facility] Rivaroxaban 2.5 mg 10/21/22 09:00 Rivaroxaban 2.5 Mg Tablet PO DAILY [facility] Protocol Tamsulosin HCl 0.4 mg 10/20/22 23:32 10/21/22 00:13 Tamsulosin 0.4 Mg Cap.Er.24h PO 0.4 mg DAILY [facility] Administration Intake and Output 10/20/22 10/21/22 10/21/22 22:59 06:59 14:59 Intake Total 210 610 Output Total 300 450 Balance -90 160 Intake: IV 10 10 Invasive Line 1 10 10 Oral 200 600 Output: Urine 300 450 Other: Voiding Method Urinal Urinal Weight 127.006 kg 125.2 kg 10/20/22 16:46 10/20/22 16:46
[2022-10-21] MEDS: RIVAROXABAN 20 MG TAB PO SCH (12:36)
--- NOTE | 2022-10-21 16:06 | P.HPIM ---
History of Present Illness H&P Date: 10/21/22 This is a pleasant 67-year-old male who presented to the emergency department with shortness of breath that had been ongoing and progressively getting worse over the last few weeks. Patient did see his primary care provider Dr. Canales in the [place] area with concerns for possible new onset atrial fibrillation and possible congestive heart failure. Patient denies any history previously of thi s and reports he has a past medical history of DVT after a surgery, hypertension, chronic back pain, along with diabetes mellitus and osteoarthritis. Patient reports to being a former smoker and occasionally drinks socially, a couple beers a month, and denies any other illicit drug use. Patient is currently type II diabetic on oral diabetic agents and does not require insulin at home. Labs on admission show a WBC of 7.2, hemoglobin is 16.0, platelets are 221, INR is 1.0, para sodium is 136, potassium 4.4, BUN 23, creatinine 1.02, lactic acid 1.7, magnesium 1.7, troponin negative 2, BNP 419, TSH 3.360 with a free T4 of 0.71 and a free T3 of 4.3. X-ray in the ER showed small bilateral pleural effusions with a normal heart and EKG showed atrial fibrillation. Patient was started on Cardizem and admitted with cardiology on consult and a 2-D echo was done. 2-D echo showed an EF of 55-60 with some left ventricular hypertrophy, echo free space anterior to the right ventricle likely represents a fat pad with no pericardial effusion noted. Review Of Systems: Constitutional: No fever, no chills, no night sweats. No weight change. No weakness, fatigue or lethargy. No daytime sleepiness. EENT: No headache. No blurred vision or double vision, no loss of vision. No loss of Hearing, no ringing in the ears, no dizziness. No nasal drainage or congestion. No epistaxis. No sore throat. Lungs: Reports shortness of breath, cough, no sputum production. No wheezing. Cardiovascular: No chest pain, reports lower extremity edema. No palpitations. No paroxysmal nocturnal dyspnea. No orthopnea. No lightheadedness or dizziness. No syncopal episodes. Abdominal: No abdominal pain. No nausea, vomiting. No diarrhea. No constipation. No bloody or tarry stools.. No loss of appetite. Genitourinary: No dysuria, increased frequency, urgency. No urinary retention. Musculoskeletal: No myalgias. No muscle weakness, no gait dysfunction, no frequent falls. No back pain. No neck pain. Integumentary: No wounds, no lesions. No rash or pruritus. No unusual bruising. No change in hair or nails. Neurologic: No aphasia. No facial droop. No change in mentation. No head injury. No headache. No paralysis. No paresthesia. Psychiatric: No depression. No anxiety. No mood swings. Endocrine: No abnormal blood sugars. No weight change. No excessive sweating or thirst. No cold intolerance. PHYSICAL EXAMINATION: GENERAL: The patient is alert and oriented x4, Well developed, well nourished. Morbidly obese HEENT: Pupils are round and equally reacting to light. EOMI. no scleral icterus. No conjunctival pallor. Normocephalic, atraumatic. No pharyngeal erythema. No thyromegaly. CARDIOVASCULAR: S1 and S2 muffled , irregular PULMONARY: diminished breath sounds bilaterally with no wheezing or rhonchi noted. Some faint crackles noted at the bases ABDOMEN: soft. Nontender on exam. obese. non-distended, normoactive bowel sounds. No palpable organomegaly. MUSCULOSKELETAL: No joint swelling or deformity. EXTREMITIES: No cyanosis, clubbing, there is some bilateral lower extremity edema 1+ pitting NEUROLOGICAL: Gross neurological examination did not reveal any focal deficits. SKIN: No rashes. Assessment: Atrial fibrillation, new onset, paroxysmal, currently rate controlled History of hypertension History of hyperlipidemia Diabetes mellitus, type II Morbid obesity with a BMI of 42 History of DVT Continued alcohol use Former smoker GI prophylaxis DVT prophylaxis Full code Plan: Recommend to continue with current medications and management with cardiology consulted and following. Patient was maintained on 2.5 mg of Xarelto at home for past medical history of DVT and cardiology recommending increased to 20 mg daily and has been started on other cardiac medications and will continue on telemetry monitoring and also has been started on IV Lasix 40 mg twice daily for the lower extremity edema Recommend continuing with Byron wrapping from the toes up to the knees and elevate while at rest Will follow-up on repeat labs in the a.m. Recommend monitoring blood sugars before meals and at bedtime and will continue sliding scale and hold diabetic agents for now Encouraged increased activity as tolerated Will follow-up with cardiology to discuss discharge planning with possible discharge in the next 24-48 hours. The impression and plan of care has been dictated by Sandra Ayala, nurse practitioner as directed. Dr. Nola MD I have performed a history and examination and MDM of this patient, discussed the same with the dictator, and agree with the dictator's assessment and plan as written ,documented as a scribe. Based on total visit time, I have performed more than 50% of the visit. Any additional findings or plans will be noted. Past Medical History Past Medical History: Diabetes Mellitus, Deep Vein Thrombosis (DVT), Hypertension, Osteoarthritis (OA), Prostate Disorder Additional Past Medical History / Comment(s): back pain, MRI scheduled for 10/28/22 History of Any Multi-Drug Resistant Organisms: None Reported Additional Past Surgical History / Comment(s): bilateral total hip replacement. 200705-12-16 TOTAL RIGHT HIP REPLACEMENT. RT KNEE SX. RT SHOULDER SX. COLONOSCOPY Past Anesthesia/Blood Transfusion Reactions: No Reported Reaction Past Psychological History: No Psychological Hx Reported Smoking Status: Former smoker Past Alcohol Use History: Occasional Past Drug Use History: None Reported - Past Family History Mother Family Medical History: Diabetes Mellitus Father Additional Family Medical History / Comment(s): FROM [facility]AL [place] Medications and Allergies Home Medications Medication Instructions Recorded Confirmed Type Enalapril/Hydrochlorothiazide 1 tab PO DAILY 05/08/16 10/20/22 History [Vaseretic 10-25 mg] atenoloL [Tenormin] 25 mg PO BID 05/08/16 10/20/22 History Alpha Lipoic Acid 1,200 mg PO BID 10/20/22 10/20/22 History Aspirin EC [Ecotrin Low Dose] 81 mg PO DAILY 10/20/22 10/20/22 History Atorvastatin [Lipitor] 40 mg PO DAILY 10/20/22 10/20/22 History Cholecalciferol [Vitamin D3 (125 125 mcg PO BID 10/20/22 10/20/22 History Mcg = 5000 Iu)] Magnesium 500 mg PO BID 10/20/22 10/20/22 History Repaglinide [Prandin] 1 mg PO AC-TID 10/20/22 10/20/22 History Rivaroxaban [Xarelto] 2.5 mg PO DAILY 10/20/22 10/20/22 History Tamsulosin [Flomax] 0.4 mg PO DAILY 10/20/22 10/20/22 History Turmeric Root Extract [Turmeric] 1,000 mg PO BID 10/20/22 10/20/22 History metFORMIN HCL 500 mg PO BID 10/20/22 10/20/22 History Allergies Allergy/AdvReac Type Severity Reaction Status Date / Time Penicillins Allergy Rash/Hives Verified 10/20/22 17:01 ibuprofen AdvReac BURING Verified 10/20/22 17:01 SENSATION IN ARMS Physical Exam Vitals: Vital Signs Temp Pulse Pulse Resp BP BP Pulse Ox 10/21/22 08:00 73 16 108/66 93 L 10/21/22 04:00 97.8 F 74 16 102/54 93 L 10/21/22 02:00 16 10/20/22 23:05 98.3 F 16 126/79 93 L 10/20/22 20:20 16 10/20/22 20:19 97.8 F 91 16 163/95 93 L 10/20/22 19:55 74 20 125/76 98 10/20/22 16:47 77 20 120/86 93 L 10/20/22 16:18 97.4 F L 100 18 128/73 94 L Intake and Output 10/20/22 10/21/22 10/21/22 22:59 06:59 14:59 Intake Total 210 610 Output Total 300 450 100 Balance -90 160 -100 Intake: IV 10 10 Invasive Line 1 10 10 Oral 200 600 Output: Urine 300 450 100 Other: Voiding Method Urinal Urinal # Voids 1 Weight 127.006 kg 125.2 kg Results CBC & Chem 7: 10/21/22 06:56 10/21/22 06:56 Labs: Abnormal Lab Results - Last 24 Hours (Table) 10/20/22 10/20/22 10/21/22 Range/Units 16:46 20:23 05:21 RBC (4.30-5.90) m/uL Sodium 136 L (137-145) mmol/L BUN 23 H (9-20) mg/dL Glucose 121 H (74-99) mg/dL POC Glucose (mg/dL) 140 H 146 H (70-110) mg/dL Calcium (8.4-10.2) mg/dL Total Protein 5.2 L (6.3-8.2) g/dL Albumin 2.4 L (3.5-5.0) g/dL Free T4 0.71 L (0.78-2.19) ng/dL 10/21/22 10/21/22 Range/Units 06:56 06:56 RBC 4.27 L (4.30-5.90) m/uL Sodium 134 L (137-145) mmol/L BUN 23 H (9-20) mg/dL Glucose 136 H (74-99) mg/dL POC Glucose (mg/dL) (70-110) mg/dL Calcium 8.0 L (8.4-10.2) mg/dL Total Protein 4.2 L (6.3-8.2) g/dL Albumin 1.9 L (3.5-5.0) g/dL Free T4 (0.78-2.19) ng/dL Thrombosis Risk Factor Assmnt - DVT/VTE Prophylaxis DVT/VTE Prophylaxis: Pharmacologic Prophylaxis ordered - Choose All That Apply Any of the Below Risk Factors Present?: Yes Each Factor Represents 1 point: Heart failure (<1month), Obesity (BMI >25), Swollen legs (current) Each Risk Factor Represents 2 Points: Age 61-74 years Each Risk Factor Represents 3 Points: History of DVT/PE Thrombosis Risk Factor Assessment Total Risk Factor Score: 8 Thrombosis Risk Factor Assessment Level: High Risk Assessment and Plan Time with Patient: Greater than 30
[2022-10-21 16:51] LABS: Glucose,Whole Blood 141 mg/dL (70-110)
[2022-10-21 20:25] LABS: Glucose,Whole Blood 120 mg/dL (70-110)
[2022-10-22 03:49] VITALS: TEMP 97.4
[2022-10-22 06:08] LABS: Glucose,Whole Blood 125 mg/dL (70-110)
[2022-10-22] MEDS: INSULIN ASPART (NovoLOG) 100 UNIT/ML VIAL SQ SCH ×2 (06:10→12:02)
[2022-10-22] MEDS: REPAGLINIDE 1 MG TAB PO SCH ×2 (06:34→12:04)
[2022-10-22 08:34] LABS: Calcium 8.2 mg/dL (8.4-10.2); Magnesium 1.9 mg/dL (1.6-2.3); Potassium 4.1 mmol/L (3.5-5.1)
[2022-10-22] MEDS: FUROSEMIDE 10 MG/ML 4 ML VIAL IV SCH (08:43)
[2022-10-22] MEDS: RIVAROXABAN 20 MG TAB PO SCH (08:43)
[2022-10-22] MEDS: atenoloL 25 MG TAB PO SCH (08:43)
[2022-10-22] MEDS: MAGNESIUM OXIDE 400 MG TAB PO SCH (08:44)
[2022-10-22] MEDS: hydroCHLOROthiazide 25 MG TAB PO SCH (08:44)
[2022-10-22] MEDS: ASPIRIN 81 MG PO SCH (08:44)
[2022-10-22] MEDS: lisinopriL 20 MG TAB PO SCH (08:44)
[2022-10-22] MEDS: CHOLECALCIFEROL 125 MCG (5000 IU) TABLET PO SCH (08:44)
[2022-10-22] MEDS: TAMSULOSIN 0.4 MG CAP.ER.24H PO SCH (08:44)
--- NOTE | 2022-10-22 10:33 | XR ---
EXAMINATION TYPE: XR chest 1V portable DATE OF EXAM: 10/22/2022 COMPARISON: 10/20/2022 HISTORY: Shortness of breath TECHNIQUE: Single frontal view of the chest is obtained. FINDINGS: Bilateral lower lobe infiltrate and small effusion. Hypertrophic and degenerative changes spine. No overt failure. No pneumothorax. Hyperinflation suggests COPD. Arthropathy of the shoulders. IMPRESSION: Bilateral lower lobe atelectasis or infiltrate with small effusion is stable.
[2022-10-22 11:34] VITALS: BP 96/49; PULSE 65
[2022-10-22 11:59] LABS: Glucose,Whole Blood 112 mg/dL (70-110)
--- NOTE | 2022-10-22 12:42 | P.PN ---
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 He has a past medical history of hypertension, hyperlipidemia, diabetes mellitus type 2, DVT, chronic back pain, remote history of tobacco use quit in 2000. We have been asked to evaluate the patient for new onset of atrial fibrillation and CHF. Patient presented to [facility] emergency center due to shortness of breath and lower extremity edema for 3 weeks. His initial blood pressure 143/76. Regarding alcohol use. Patient states he drinks 2-3 beers per 2 weeks. EKG atrial fibrillation ventricular rate of 92, telemetry atrial fibrillation with controlled rate Chest x-ray: Small bilateral pleural effusions CBC within normal limits. INR 1.0. Sodium 136, potassium 4.4, BUN 23 and creatinine 1.02. Magnesium 1.7. Liver function tests normal. Lactic acid 1.7. Troponin negative 3. TSH 3.360. ProBNP 419 Home cardiac medications: Aspirin 81 mg daily, atenolol 25 mg twice daily, atorvastatin 40 mg daily, Vasotec reticulocyte 1025 milligrams 1 daily, Xarelto 2.5 mg daily, magnesium 500 mg twice daily. 10/22 Patient denies chest pain, shortness of breath. Telemetry afib at 60-70 bpm. BP 96/49. BUN 30, creat 1.34. Lasix changed to PO. Patient continued on increase dose of Xarelto. Physical examination: Gen: This is a morbidly obese 67-year-old male. He is resting but appears to be comfortable. VS: reviewed HEENT: Head is atraumatic, normocephalic. Pupils equal, round. Sclerae is anicteric. NECK: Supple. No JVD. . LUNGS: Clear to auscultation. No wheezes or rhonchi. No intercostal retractions. HEART: Irregular rate and rhythm. No murmur. ABDOMEN: Soft No tenderness. EXTREMITIES: Bilateral pedal edema. No calf tenderness. NEUROLOGICAL: Patient is awake, alert and oriented x3. Assessment: New onset paroxysmal atrial fibrillation, rate controlled Hypertension Hyperlipidemia Diabetes mellitus type 2 History of DVT Remote history of tobacco use Daily alcohol use Plan: Final diagnosis Newly detected atrial fibrillation with reasonable rate control, symptomatic LVH with ejection fraction greater than 55%, no significant valvular abnormality Normal TSH but with a low free T4 and normal free T3 Normal troponins Creatinine mildly increased at 1.34 Hemoglobin A1c 6.5/type 2 diabetes hypertension, on Zestril Patient to increase xarelto dose to 20 mg by mouth daily Continue baby aspirin 81 mg daily Reduce the Lasix dose 20 mg once daily. As an outpatient we will try to stop Lasix completely Follow-up BUN and creatinine after a few weeks Rhythm control atrial fibrillation after 4 weeks of anticoagulation with Xarelto 20 mg by mouth daily Lifelong xarelto, DANNY VASC score at least 3 Outpatient ischemia workup Nurse practitioner note has been reviewed, I agree with documented findings and plan of care. Patient was seen and examined. Objective - Vital Signs Vital signs: Vital Signs Temp 97.4 F L 10/22/22 03:44 Pulse 60 10/22/22 08:00 Resp 16 10/22/22 08:00 BP 130/78 10/22/22 08:00 Pulse Ox 94 L 10/22/22 08:00 FiO2 Intake & Output 10/21/22 10/22/22 10/22/22 18:59 06:59 18:59 Intake Total 476 20 240 Output Total 500 1125 950 Balance - -6 -689 Weight 125.2 kg 124.3 kg Intake: IV 20 Invasive Line 1 20 Oral 476 240 Output: Urine 500 1125 950 Other: Voiding Method Urinal Urinal Urinal # Voids 1 - Labs CBC & Chem 7: 10/21/22 06:56 10/22/22 06:46 Labs: Abnormal Lab Results - Last 24 Hours (Table) 10/21/22 10/21/22 10/22/22 Range/Units 16:42 20:24 06:05 Sodium (137-145) mmol/L Carbon Dioxide (22-30) mmol/L BUN (9-20) mg/dL Creatinine (0.66-1.25) mg/dL Glucose (74-99) mg/dL POC Glucose (mg/dL) 141 H 120 H 125 H (70-110) mg/dL Calcium (8.4-10.2) mg/dL 10/22/22 Range/Units 06:46 Sodium 134 L (137-145) mmol/L Carbon Dioxide 31 H (22-30) mmol/L BUN 30 H (9-20) mg/dL Creatinine 1.34 H (0.66-1.25) mg/dL Glucose 152 H (74-99) mg/dL POC Glucose (mg/dL) (70-110) mg/dL Calcium 8.2 L (8.4-10.2) mg/dL
--- NOTE | 2022-10-24 12:30 | CDI ---
Documentation Clarification Form Date: 10/24/22 From: Kelsea Pérez Admit Date: 10/20/2022 6:15:00 PM Patient Name: Kamran Brandon Visit Number: [id number] Discharge Date: 10/22/2022 1:38:00 PM ATTENTION: The Clinical Documentation Specialists (CDI) and [facility] Coding Staff appreciate your assistance in clarifying documentation. Please respond to the clarification below the line at the bottom and electronically sign. The CDI & [facility] Coding staff will review the response and follow-up if needed. Please note: Queries are made part of the Legal Health Record. If you have any questions, please contact the author of this message via ITS. Dr. Génesis Vaca, Your patient has the documented diagnosis of unspecified CHF in the ED Note and H&P. Additional information regarding the type, acuity of CHF is requested. History/Risk Factors: T2DM, Hx of DVT, chronic back pain, hx of smoking, Clinical Indicators: Presents with shortness of breath. VS/Pulse OX: T 97.4, P 100, R 18, BP 128/73 O2 Sat 94 & 93 BNP: 419 Echocardiogram Results: Let ventricular ejection fraction 55-60%. Chest X Ray: There are small bilateral pleural effusions. Normal heart. Treatment: IV Lasix 40 mg Q12H, heart failure pathway In your professional opinion, can you please clarify the acuity and type of CHF if known? [ ] Acute Systolic Heart Failure (reduced EF) [ ] Chronic Systolic Heart Failure (reduced EF) [ ] Acute on Chronic Systolic Heart Failure (reduced EF) [ ] Acute Diastolic Heart Failure (preserved EF) [ x] Chronic Diastolic Heart Failure (preserved EF) [ ] Acute on Chronic Diastolic Heart Failure (preserved EF) [ ] Acute Systolic & Diastolic Heart Failure [ ] Chronic Systolic & Diastolic Heart Failure [ ] Acute on Chronic Heart Failure Systolic & Diastolic Heart Failure [ ] Other, please specify [ ] Unable to determine MTDD
--- NOTE | 2022-10-25 20:46 | P.DS ---
Providers Date of admission: 10/20/22 18:15 Expected date of discharge: 10/22/22 Attending physician: Génesis Vaca Consults: 10/20/22 18:15 Consult Physician Routine Consulting Provider: Jesús Hoskins Consult Reason/Comments: New-onset A. fib with CHF Do you want consulting provider notified?: Yes Primary care physician: Tomasz Canales Hospital Course: Final diagnosis Atrial fibrillation, new onset, paroxysmal, currently rate controlled Lower extremity edema, possible congestive heart failure, acute exacerbation with preserved EF History of hypertension History of hyperlipidemia Diabetes mellitus, type II Morbid obesity with a BMI of 42 History of DVT Continued alcohol use Former smoker GI prophylaxis DVT prophylaxis Full code Discharge disposition Patient is being discharged in a stable condition with guarded prognosis to home. Patient will follow-up with Dr. Arellano in the outpatient setting upon discharge. Patient is to continue with oral Lasix low dose and outpatient follow-up with cardiology as scheduled. Patient will continue on increased dose of Xarelto 20 mg daily. Total time taken is greater than 35 minutes. Hospital course This is a 67-year-old male who was recently admitted with shortness of breath and palpitations was found to have new onset atrial fibrillation started on Cardizem and evaluated by cardiology. Medication adjustments made and patient was taking Xarelto although low-dose of 2.5 mg for history of DVT. Patient will be increased to 20 mg daily and close outpatient follow-up. Patient has been cleared by cardiology. Please refer to cardiology note for further HPI. Currently no reports of chest pain, shortness of breath, or palpitations. Patient is afebrile. No reports of nausea or vomiting and patient is tolerating diet. Patient will be discharged home today. Physical exam: Gen: This is a 67-year-old male who is awake, alert and oriented 3, well- developed, well-nourished, morbidly obese. HEENT: Head is atraumatic, normocephalic. Pupils equal, round. Sclerae is anicteric. NECK: Supple. No JVD. No lymphadenopathy. No thyromegaly. LUNGS: Clear to auscultation. No wheezes or rhonchi. No intercostal retractions. HEART: S1, S2 are muffled ABDOMEN: Soft. Obese Bowel sounds are present. No masses. No tenderness. EXTREMITIES: No pedal edema. No calf tenderness. NEUROLOGICAL: Patient is awake, alert and oriented x3. Cranial nerves 2 through 12 are grossly intact. Please refer to medication reconciliation sheet for a list of medications. The impression and plan of care has been dictated by Sandra Ayala, Nurse Practitioner as directed. Dr. Nola MD I have performed a history and examination and MDM of this patient, discussed the same with the dictator, and agree with the dictator's assessment and plan as written ,documented as a scribe. Based on total visit time, I have performed more than 50% of the visit. Patient Condition at Discharge: Stable Plan - Discharge Summary Discharge Rx Participant: No New Discharge Prescriptions: New Calcium Carbonate [Tums] 500 mg PO TID PRN tab PRN Reason: Heartburn Rivaroxaban [Xarelto] 20 mg PO DAILY 30 Days #30 tab Furosemide [Lasix] 20 mg PO DAILY #30 tab lisinopriL [Prinivil] 10 mg PO DAILY 30 Days #30 tab Continue atenoloL [Tenormin] 25 mg PO BID Repaglinide [Prandin] 1 mg PO AC-TID metFORMIN HCL 500 mg PO BID Tamsulosin [Flomax] 0.4 mg PO DAILY Atorvastatin [Lipitor] 40 mg PO DAILY Cholecalciferol [Vitamin D3 (125 Mcg = 5000 Iu)] 125 mcg PO BID Aspirin EC [Ecotrin Low Dose] 81 mg PO DAILY Magnesium 500 mg PO BID Alpha Lipoic Acid 1,200 mg PO BID Turmeric Root Extract [Turmeric] 1,000 mg PO BID Discontinued Enalapril/Hydrochlorothiazide [Vaseretic 10-25 mg] 1 tab PO DAILY Rivaroxaban [Xarelto] 2.5 mg PO DAILY Discharge Medication List atenoloL [Tenormin] 25 mg PO BID 05/08/16 [History] Alpha Lipoic Acid 1,200 mg PO BID 10/20/22 [History] Aspirin EC [Ecotrin Low Dose] 81 mg PO DAILY 10/20/22 [History] Atorvastatin [Lipitor] 40 mg PO DAILY 10/20/22 [History] Cholecalciferol [Vitamin D3 (125 Mcg = 5000 Iu)] 125 mcg PO BID 10/20/22 [History] Magnesium 500 mg PO BID 10/20/22 [History] Repaglinide [Prandin] 1 mg PO AC-TID 10/20/22 [History] Tamsulosin [Flomax] 0.4 mg PO DAILY 10/20/22 [History] Turmeric Root Extract [Turmeric] 1,000 mg PO BID 10/20/22 [History] metFORMIN HCL 500 mg PO BID 10/20/22 [History] Calcium Carbonate [Tums] 500 mg PO TID PRN tab 10/22/22 [Rx] Furosemide [Lasix] 20 mg PO DAILY #30 tab 10/22/22 [Rx] Rivaroxaban [Xarelto] 20 mg PO DAILY 30 Days #30 tab 10/22/22 [Rx] lisinopriL [Prinivil] 10 mg PO DAILY 30 Days #30 tab 10/22/22 [Rx] Follow up Appointment(s)/Referral(s): Alexandre Quesada MD [STAFF PHYSICIAN] - 11/06/22 11:15 am Tomasz Canales MD [Primary Care Provider] - 1-2 days Ambulatory/Diagnostic Orders: Basic Metabolic Panel [LAB.AMB] Time Frame: 3 Days, Location: None Selected Patient Instructions/Handouts: Heart Failure (ER), Heart Failure (DC), A-fib (Atrial Fibrillation) (DC) Activity/Diet/Wound Care/Special Instructions: Activity Limited until follow-up Follow-up with primary care provider on discharge Follow-up with cardiology outpatient Continue taking medications as prescribed Continue using Byron wraps from the toes up to the knees and elevate while at rest Follow-up with repeat labs and primary care provider Would recommend pulmonary consult outpatient for further testing for possible sleep apnea Patient is to continue on lisinopril 10 mg daily continue with Lasix 20 mg daily Recommend follow-up labs in 2-3 days to monitor kidney functions Discharge Disposition: HOME SELF-CARE
== END 2022-10-22 13:38 | disposition home or self-care (01) ==
LOC: EC 16:07 → 3SCARD 18:15 → INTOOBSV 18:15 → 3SCARD 19:59 → UNDODISIN 10-22 13:38
PROVIDERS: ADMIT Internal Medicine; ATTEND Internal Medicine
DX: I48.0 Paroxysmal atrial fibrillation (principal); I11.0 Hypertensive heart disease with heart failure; I50.32 Chronic diastolic (congestive) heart failure; E11.9 Type 2 diabetes mellitus without complications; E78.5 Hyperlipidemia, unspecified; G89.29 Other chronic pain; M54.9 Dorsalgia, unspecified; M19.90 Unspecified osteoarthritis, unspecified site; E66.01 Morbid (severe) obesity due to excess calories; Z68.41 Body mass index [BMI] 40.0-44.9, adult; Z79.82 Long term (current) use of aspirin; Z79.84 Long term (current) use of oral hypoglycemic drugs; Z79.01 Long term (current) use of anticoagulants; Z79.899 Other long term (current) drug therapy; Z88.0 Allergy status to penicillin; Z88.6 Allergy status to analgesic agent; Z86.718 Personal history of other venous thrombosis and embolism; Z96.643 Presence of artificial hip joint, bilateral; Z87.891 Personal history of nicotine dependence; Z98.890 Other specified postprocedural states; Z83.3 Family history of diabetes mellitus; Z83.1 Family history of other infectious and parasitic diseases
CPT/HCPCS: 96376 ×2; 96374; 99285; 36415; 93005; 93306; 84439; 84481; 83880; 80053 ×2; 80048; 83605; 83735 ×2; 84443; 84484 ×2; 85025; 85027; 85610; 85730; 83036; 71045; 71046; G0378 ×3; J1940 ×3

== ENCOUNTER → 2022-10-28 | Outpatient (CLI) | payer MEDICARE ==
--- NOTE | 2022-10-30 06:45 | MR ---
EXAMINATION TYPE: MR lumbar spine wo con DATE OF EXAM: 10/28/2022 COMPARISON: Outside lumbar spine x-ray October 13, 2022 HISTORY: Low back pain into zacarias lower extremities, ddd. Spondylosis with radiculopathy. TECHNIQUE: Multiplanar, multisequence imaging of the lumbar spine is performed without IV contrast. FINDINGS: Sagittal images of the lumbar spine show mild height loss or anterior wedging at T12 and L1 levels. Alignment is straightened. Multilevel disc desiccation. Advanced disc space narrowing with v acuum disc phenomenon and a heterogeneous Modic type I endplate changes L4-L5 level. Vacuum disc phen omenon with moderate to advanced disc space narrowing L5-S1 level. Taking this phenomenon with modera te disc space narrowing at L2-L3 level. The conus medullaris is normal in position and signal ending mid L1 level. Axial images show at T12-L1 level appear within normal limits. Axial images at L1-L2 level show mild broad disc bulge minimally effacing the anterior thecal sac. Axial images at L2-L3 level show vtfq-[id number] broad disc bulge effacing the anterior thecal sac a long with mild facet arthropathy bilaterally. Axial images at L3-L4 level show moderate broad disc bulge effacing the anterior thecal sac with fora jennifer disc herniation components causing qouf-ba-gwmzahyt bilateral anterior inferior neural foramina l narrowing. Mild facet arthropathy bilaterally. Axial images at L4-L5 level shows moderate broad-based disc bulge mildly effacing the anterior thecal sac along with swuj-xi-favmrszm facet arthropathy and ligamentum flavum hypertrophy effacing right p osterior lateral thecal sac. There is mild bilateral neural foraminal narrowing. Axial images at L5-S1 level shows moderate broad-based disc bulge with mild facet arthropathy bilater ally. There is bdxc-ue-uiclhviy bilateral neural foraminal narrowing seen. Paraspinal muscle bulk is maintained. IMPRESSION: Straightening of lumbar spine with multilevel degenerative changes present as detailed ab ove.
== END | disposition home or self-care (01) ==
LOC: RADMRIMAIN 10:25
PROVIDERS: ATTEND Nurse Practitioner Family
DX: M47.26 Other spondylosis with radiculopathy, lumbar region (principal); M51.16 Intervertebral disc disorders with radiculopathy, lumbar region; G95.19 Other vascular myelopathies
CPT/HCPCS: 72148

== ENCOUNTER 2022-11-04 22:58 | Emergency (ER) | payer MEDICARE ==
--- NOTE | 2022-11-04 23:02 | ED ---
General Adult HPI - General Source: RN notes reviewed <Heather Starr - Last Filed: 11/04/22 23:01> <Glenn Mayer - Last Filed: 11/05/22 01:12> - General Stated complaint: CHF, AFIB, Shortness of breath Time Seen by Provider: 11/04/22 23:00 - History of Present Illness Initial comments: 67-year-old male with a extensive past medical history presents to the emergency department with worsening symptoms of shortness breath and bilateral upper extremity edema that he noticed started today. (Heather Starr) 67-year-old male with history of atrial fibrillation and CHF presenting for evaluation. Patient states he does not feel well and was instructed to present to the emergency department if he develops symptoms. He does report some mild dyspnea. No chest pain. No fever. He reports bilateral lower extremity and bilateral upper extremity edema which is slightly worse than at the time of discharge. (Glenn Mayer) - Related Data Home Medications Medication Instructions Recorded Confirmed atenoloL [Tenormin] 25 mg PO BID 05/08/16 10/20/22 Alpha Lipoic Acid 1,200 mg PO BID 10/20/22 10/20/22 Aspirin EC [Ecotrin Low Dose] 81 mg PO DAILY 10/20/22 10/20/22 Atorvastatin [Lipitor] 40 mg PO DAILY 10/20/22 10/20/22 Cholecalciferol [Vitamin D3 (125 125 mcg PO BID 10/20/22 10/20/22 Mcg = 5000 Iu)] Magnesium 500 mg PO BID 10/20/22 10/20/22 Repaglinide [Prandin] 1 mg PO AC-TID 10/20/22 10/20/22 Tamsulosin [Flomax] 0.4 mg PO DAILY 10/20/22 10/20/22 Turmeric Root Extract [Turmeric] 1,000 mg PO BID 10/20/22 10/20/22 metFORMIN HCL 500 mg PO BID 10/20/22 10/20/22 Previous Rx's Medication Instructions Recorded Calcium Carbonate [Tums] 500 mg PO TID PRN tab 10/22/22 Furosemide [Lasix] 20 mg PO DAILY #30 tab 10/22/22 Rivaroxaban [Xarelto] 20 mg PO DAILY 30 Days #30 tab 10/22/22 lisinopriL [Prinivil] 10 mg PO DAILY 30 Days #30 tab 10/22/22 Allergies Allergy/AdvReac Type Severity Reaction Status Date / Time Penicillins Allergy Rash/Hives Verified 11/04/22 23:07 ibuprofen AdvReac BURING Verified 11/04/22 23:07 SENSATION IN ARMS Review of Systems ROS Other: All systems not noted in ROS Statement are negative. <Heather Starr - Last Filed: 11/04/22 23:01> ROS Other: All systems not noted in ROS Statement are negative. <LeylaGlenn Kanwal - Last Filed: 11/05/22 01:12> ROS Statement: Those systems with pertinent positive or pertinent negative responses have been documented in the HPI. Past Medical History Past Medical History: Diabetes Mellitus, Deep Vein Thrombosis (DVT), Hypert ension, Osteoarthritis (OA), Prostate Disorder Additional Past Medical History / Comment(s): back pain, MRI scheduled for 10/28/22 History of Any Multi-Drug Resistant Organisms: None Reported Additional Past Surgical History / Comment(s): bilateral total hip replacement. 200705-12-16 TOTAL RIGHT HIP REPLACEMENT. RT KNEE SX. RT SHOULDER SX. COLONOSCOPY Past Anesthesia/Blood Transfusion Reactions: No Reported Reaction Past Psychological History: No Psychological Hx Reported Smoking Status: Former smoker Past Alcohol Use History: Occasional Past Drug Use History: None Reported - Past Family History Mother Family Medical History: Diabetes Mellitus Father Additional Family Medical History / Comment(s): FROM SPINAL MENNINGITIS <Heather Starr - Last Filed: 11/04/22 23:01> General Exam <Heather Starr - Last Filed: 11/04/22 23:01> General appearance: alert, in no apparent distress Head exam: Present: atraumatic, normocephalic Eye exam: Present: normal appearance, PERRL ENT exam: Present: normal exam Neck exam: Present: normal inspection. Absent: tenderness, meningismus Respiratory exam: Present: normal lung sounds bilaterally. Absent: respiratory distress, wheezes Cardiovascular Exam: Present: regular rate, irregular rhythm GI/Abdominal exam: Present: soft. Absent: distended, tenderness Extremities exam: Present: pedal edema Neurological exam: Present: alert, oriented X3 Psychiatric exam: Present: normal affect, normal mood Skin exam: Present: warm, dry <Glenn Mayer - Last Filed: 11/05/22 01:12> - General Exam Comments Initial Comments: Visual Physical Exam Vital signs reviewed General: Well-appearing, nontoxic, no acute distress. Head: Normocephalic, atraumatic Eyes: PERRLA, EOMI ENT: Airway patent Chest: Nonlabored breathing Skin: No visual rash, normal skin tone Neuro: Alert and oriented 3 Musculoskeletal: No gross abnormalities (Heather Starr) Course Vital Signs 11/04/22 11/04/22 23:04 23:57 Temperature 97.6 F Pulse Rate 87 94 Respiratory 20 18 Rate Blood Pressure 115/75 120/71 O2 Sat by Pulse 95 92 L Oximetry EKG Findings - EKG Comments: EKG Findings:: EKG: Atrial fibrillation, low voltage, rate of 80, QRS duration is 85, QTC 394, no ST segment elevation. <Glenn Mayer N - Last Filed: 11/05/22 01:12> Medical Decision Making - Lab Data Result diagrams: 11/04/22 23:34 11/04/22 23:34 <Glenn Mayer N - Last Filed: 11/05/22 01:12> - Medical Decision Making Was pt. sent in by a medical professional or institution (ANDREWS Lynn, BERRY PICKER MACHINE OPERATOR, urgent care, hospital, or shelter...) When possible be specific @ -No Did you speak to anyone other than the patient for history (EMS, parent, family, police, friend...)? What history was obtained from this source @ -No Did you review nursing and triage notes (agree or disagree)? Why? @ -I reviewed and agree with nursing and triage notes Were old charts reviewed (outside hosp., previous admission, EMS record, old EKG, old radiological studies, urgent care reports/EKG's, shelter records)? Report findings @ -Reviewed previous echo and admission notes Differential Diagnosis (chest pain, altered mental status, abdominal pain women, abdominal pain men, vaginal bleeding, weakness, fever, dyspnea, syncope, headache, dizziness, GI bleed, back pain, seizure, CVA, palpatations, mental health, musculoskeletal)? @ -Differential Palpitations Ventricular arrhythmias, atrial arrhythmias, myocardial infarction, anemia, thyrotoxicosis, electrolyte imbalance, hypokalemia, pulmonary embolism, pulmonary disease, drugs, alcohol, anxiety, stress.... This is not meant to be an all-inclusive list. EKG interpreted by me (3pts min.). @ -As above X-rays interpreted by me (1pt min.). @ -Chest x-ray showing right pleural effusion without significant change compared to prior CT interpreted by me (1pt min.). @ -None done U/S interpreted by me (1pt. min.). @ -None done What testing was considered but not performed or refused? (CT, X-rays, U/S, labs)? Why? @ -None What meds were considered but not given or refused? Why? @ -None Did you discuss the management of the patient with other professionals (professionals i.e. , PA, BERRY PICKER MACHINE OPERATOR, lab, RT, psych nurse, dialysis social worker, washroom operator, teacher, airfield engineer officer, major case detective)? Give summary @ -No Was smoking cessation discussed for >3mins.? @ -No Was critical care preformed (if so, how long)? @ -No Were there social determinants of health that impacted care today? How? (Homelessness, low income, unemployed, alcoholism, drug addiction, transportation, low edu. Level, literacy, decrease access to med. care, snf, rehab)? @ -No Was there de-escalation of care discussed even if they declined (Discuss DNR or withdrawal of care, Hospice)? DNR status @ -No What co-morbidities impacted this encounter? (DM, HTN, Smoking, COPD, CAD, Cancer, CVA, ARF, Chemo, Hep., AIDS, mental health diagnosis, sleep apnea, morbid obesity)? @ -a fibrillation, CHF Was patient admitted / discharged? Hospital course, mention meds given and route, prescriptions, significant lab abnormalities, going to OR and other pertinent info. @ -[67-year-old male presenting for evaluation of palpitation, mild dyspnea and swelling. Patient well-appearing with stable vitals. He is inrate controlled A. fib. He has been compliant with all of his medications. He does have edema and laboratory testing reveals a low albumin. This may be contributing to his edema. His BNP is minimally elevated. His troponin is negative. His chest x- ray is unchanged compared to prior. Vital signs remained stable without dyspnea or hypoxia. Patient has an appointment with his child day care provider in the next 48 hours. He is given strict return parameters and is stable for discharge at this time. Undiagnosed new problem with uncertain prognosis? @ -No Drug Therapy requiring intensive monitoring for toxicity (Heparin, Nitro, Insulin, Cardizem)? @ -No Were any procedures done? @ -No Diagnosis/symptom? @ -[A. fib, hypoalbuminemia, edema Acute, or Chronic, or Acute on Chronic? @ -[Acute Uncomplicated (without systemic symptoms) or Complicated (systemic symptoms)? @ -complicated Side effects of treatment? @ -No Exacerbation, Progression, or Severe Exacerbation? @ -No Poses a threat to life or bodily function? How? (Chest pain, USA, NH, pneumonia, PE, COPD, DKA, ARF, appy, cholecystitis, CVA, Diverticulitis, Homicidal, Suicidal, threat to staff... and all critical care pts) @ -No (Glenn Mayer) - Lab Data Lab Results 11/04/22 11/04/22 11/04/22 Range/Units 23:34 23:34 23:34 WBC 7.3 (3.8-10.6) k/uL RBC 4.46 (4.30-5.90) m/uL Hgb 14.4 (13.0-17.5) gm/dL Hct 42.3 (39.0-53.0) % MCV 94.8 (80.0-100.0) fL MCH 32.2 (25.0-35.0) pg MCHC 34.0 (31.0-37.0) g/dL RDW 13.1 (11.5-15.5) % Plt Count 198 (150-450) k/uL MPV 7.2 Neutrophils % 59 % Lymphocytes % 22 % Monocytes % 10 % Eosinophils % 7 % Basophils % 0 % Neutrophils # 4.3 (1.3-7.7) k/uL Lymphocytes # 1.6 (1.0-4.8) k/uL Monocytes # 0.7 (0-1.0) k/uL Eosinophils # 0.5 (0-0.7) k/uL Basophils # 0.0 (0-0.2) k/uL PT 12.1 H (9.0-12.0) sec INR 1.2 H (<1.2) APTT 29.6 (22.0-30.0) sec Sodium 133 L (137-145) mmol/L Potassium 4.8 (3.5-5.1) mmol/L Chloride 105 (98-107) mmol/L Carbon Dioxide 27 (22-30) mmol/L Anion Gap 1 mmol/L BUN 40 H (9-20) mg/dL Creatinine 1.31 H (0.66-1.25) mg/dL Est GFR (CKD-EPI)AfAm 64 (>60 ml/min/1.73 sqM) Est GFR (CKD-EPI)NonAf 55 (>60 ml/min/1.73 sqM) Glucose 106 H (74-99) mg/dL Calcium 7.4 L (8.4-10.2) mg/dL Total Bilirubin 0.3 (0.2-1.3) mg/dL AST 29 (17-59) U/L ALT 19 (4-49) U/L Alkaline Phosphatase 71 (38-126) U/L Troponin I (0.000-0.034) ng/mL NT-Pro-B Natriuret Pep pg/mL Total Protein 4.4 L (6.3-8.2) g/dL Albumin 2.0 L (3.5-5.0) g/dL 11/04/22 11/04/22 Range/Units 23:34 23:34 WBC (3.8-10.6) k/uL RBC (4.30-5.90) m/uL Hgb (13.0-17.5) gm/dL Hct (39.0-53.0) % MCV (80.0-100.0) fL MCH (25.0-35.0) pg MCHC (31.0-37.0) g/dL RDW (11.5-15.5) % Plt Count (150-450) k/uL MPV Neutrophils % % Lymphocytes % % Monocytes % % Eosinophils % % Basophils % % Neutrophils # (1.3-7.7) k/uL Lymphocytes # (1.0-4.8) k/uL Monocytes # (0-1.0) k/uL Eosinophils # (0-0.7) k/uL Basophils # (0-0.2) k/uL PT (9.0-12.0) sec INR (<1.2) APTT (22.0-30.0) sec Sodium (137-145) mmol/L Potassium (3.5-5.1) mmol/L Chloride (98-107) mmol/L Carbon Dioxide (22-30) mmol/L Anion Gap mmol/L BUN (9-20) mg/dL Creatinine (0.66-1.25) mg/dL Est GFR (CKD-EPI)AfAm (>60 ml/min/1.73 sqM) Est GFR (CKD-EPI)NonAf (>60 ml/min/1.73 sqM) Glucose (74-99) mg/dL Calcium (8.4-10.2) mg/dL Total Bilirubin (0.2-1.3) mg/dL AST (17-59) U/L ALT (4-49) U/L Alkaline Phosphatase (38-126) U/L Troponin I <0.012 (0.000-0.034) ng/mL NT-Pro-B Natriuret Pep 860 pg/mL Total Protein (6.3-8.2) g/dL Albumin (3.5-5.0) g/dL Disposition <Heather Starr - Last Filed: 11/04/22 23:01> Is patient prescribed a controlled substance at d/c from ED?: No Time of Disposition: 01:08 <Glenn Mayer - Last Filed: 11/05/22 01:12> Clinical Impression: Hypoalbuminemia, A-fib Disposition: HOME SELF-CARE Instructions (If sedation given, give patient instructions): A-fib (Atrial Fibrillation) (ED) Additional Instructions: Your albumin level was low in the emergency department today. Please have this level checked with your, care provider in the next 2 weeks. Referrals: Tomasz Canales MD [Primary Care Provider] - 1-2 days
[2022-11-04 23:07] VITALS: TEMP 97.6
[2022-11-05 00:08] LABS: Basophils % (A) 0 %; Eosinophils # (A) 0.5 k/uL (0-0.7); Eosinophils % (A) 7 %; HCT 42.3 % (39.0-53.0); HGB 14.4 gm/dL (13.0-17.5); Lymphocytes # (A) 1.6 k/uL (1.0-4.8); Lymphocytes % (A) 22 %; MCH 32.2 pg (25.0-35.0); MCV 94.8 fL (80.0-100.0); Mean Platelet Volume 7.2; Monocytes # (A) 0.7 k/uL (0-1.0); Monocytes % (A) 10 %; Neutrophils # (A) 4.3 k/uL (1.3-7.7); Neutrophils % (A) 59 %; Platelet Count 198 k/uL (150-450); RBC 4.46 m/uL (4.30-5.90); RDW 13.1 % (11.5-15.5); WBC 7.3 k/uL (3.8-10.6)
[2022-11-05 00:22] LABS: Calcium 7.4 mg/dL (8.4-10.2); Potassium 4.8 mmol/L (3.5-5.1); Total Bilirubin 0.3 mg/dL (0.2-1.3); Total Protein 4.4 g/dL (6.3-8.2)
[2022-11-05 00:24] LABS: INR 1.2 (<1.2); Partial Thromboplastin Time 29.6 sec (22.0-30.0); Prothrombin Time 12.1 sec (9.0-12.0)
--- NOTE | 2022-11-05 00:50 | XR ---
EXAM: XR Chest, 2 Views CLINICAL HISTORY: ITS.REASON XR Reason: SOB TECHNIQUE: Frontal and lateral views of the chest. COMPARISON: 10/22/2022 FINDINGS: Lungs: Unremarkable: Pleural space: Small right pleural effusion. No lobar consolidations. No pneumothorax. Heart: Unremarkable. No cardiomegaly. Mediastinum: Unremarkable. Bones/joints: Unremarkable. IMPRESSION: No acute findings in the chest.
[2022-11-05 01:11] VITALS: BP 111/64; PULSE 85; RESP 20
== END 2022-11-05 01:19 | disposition home or self-care (01) ==
LOC: EC 22:58
DX: E88.09 Other disorders of plasma-protein metabolism, not elsewhere classified (principal); I48.91 Unspecified atrial fibrillation; E11.9 Type 2 diabetes mellitus without complications; I11.0 Hypertensive heart disease with heart failure; I50.9 Heart failure, unspecified; M19.90 Unspecified osteoarthritis, unspecified site; Z87.891 Personal history of nicotine dependence; Z88.0 Allergy status to penicillin; Z88.6 Allergy status to analgesic agent; Z79.82 Long term (current) use of aspirin; Z79.84 Long term (current) use of oral hypoglycemic drugs; Z86.718 Personal history of other venous thrombosis and embolism; Z79.899 Other long term (current) drug therapy
CPT/HCPCS: 36415; 71046; 80053; 83880; 84484; 85025; 85610; 85730; 93005; 99285

== ENCOUNTER → 2022-11-12 | Outpatient (CLI) | payer MEDICARE ==
[2022-11-12 08:59] VITALS: BP 134/73; PULSE 66; RESP 18
--- NOTE | 2022-11-12 14:49 | P.PAINPG ---
PQRS Measure Charge Sheet Comment: HISTORY OF PRESENT ILLNESS: 67 yr old male w at side as a referral from [facility] presents today w severe and chronic LBP x 3 yrs secondary to DDD, spondylosis and facet arthropathy without myelopathy for evaluation. Pt states pain level is provoked at 9 /10 in intensity, constant, localized in the lower lumbar spine, sore in character w/o shooting pain. Pain is provoked by walking/standing/lifting for periods of 15 minutes or more. Pain is alleviated by injections in the past, medications (Aleve), repositioning, sitting and rest. PT was contraindicated by his orthopedic physician as he was told it would be ineffective. PMH: DM II, DVT, HTN, OA, Prostate Disorder PSH: BL Hip Replacement (2007), Total R Hip Replacement (2016), R Knee Surgery, R Shoulder Surgery, Colonoscopy SH: Former tobacco use, Occasional ETOH use, No illicit drug use. . 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 No recent weight loss. NEUROLOGICAL: + numbness and tingling along the distal extremities. No seizure disorders or headaches. MUSCULOSKELETAL: + pain PSYCHIATRIC: Denies current depression or suicidal thoughts. Physical Examinations : Constitutional : Cooperative , not in acute distress . Neurologic : Cranial nerve II to XII intact. No focal neurological deficits. Psychiatric : alert & oriented x 3. Matching mood & appropriate affect. Judgment & insight intact. Musculoskeletal : Cervical Spine Motor strength in the deltoid and biceps: Normal right side. Normal Left side Motor strength biceps and the wrist extensors: Normal right side . Normal left side Motor strength in the triceps muscle: Normal right side. Normal left side Deep tendon reflexes: Normal at the biceps. Normal at Brachioradialis. Normal at triceps Vertebral body tenderness to deep palpation over Cervical facet loading test: positive bilaterally Spurling test: positive bilaterally Neck distraction test: positive bilaterally Joselyn sign: positive bilaterally Lumbar spine Motor strength lower extremities ,thigh and legs 5/5 Right side , 5/5 Left side Deep tendon reflexes : Normal Knee Jerk. Normal Ankle Jerk Vertebral body tenderness over L5 Lumbar facet Loading Test: positive Right / positive Left Range of motion of the lumbar spine Flexion 30 degrees, extension 10 degrees Straight Leg Raise test: Left/ Right positive at degree Raegan test: positive right / positive left. Severe tenderness over the Sacroiliac joint on the Right / Left sides Gaenslen test: positive bilaterally Seated flexion test: positive bilaterally. Sacral spine : Severe tenderness over the Sacroiliac joint: right side / left side Range of motion: Flexion of the lumbar spine <60 degrees Range of motion: Extension of the lumbar spine <20 degrees Gaenslen's Test positive Yevgeniy's Test positive Raegan test: positive right side / left side Thigh Thrust Test Sacral Thrust Test Imaging: MRI without contrast of the lumbar spine from 10/28/22 reviewed Assessment/ Plan : Lumbar spondylosis Recommendation of NINOSKA L5-S1 #1. May need a series of injections for optimal pain relief. Risks, benefits of procedure discussed and patient verbalized understanding. Admits to aspirin or anti- coagulant use or medical history of diabetes. Medical clearance for Xarelto sought from pt's surgery nurse, Dr Kiran. Protocol for discontinuation/ continuation of medications aurora procedure discussed. All questions answered. I have spent greater than 30 minutes on patient care today. Dr Hutchins was available by phone for the evaluation of this patient. The time was used to review the medical records including relevant urine studies and Prescription history (MAPs), review of the available imaging, evaluation and examination of the patient, coordination of care with the medical staff and if applicable referring physicians, as well as creation of the medical record PQRS Narrative: Smoking Status Former smoker Hx Alcohol Use (MH) No Home Medications: Ambulatory Orders atenoloL [Tenormin] 25 mg PO BID 05/08/16 Alpha Lipoic Acid 1,200 mg PO BID 10/20/22 Aspirin EC [Ecotrin Low Dose] 81 mg PO DAILY 10/20/22 Atorvastatin [Lipitor] 40 mg PO DAILY 10/20/22 Cholecalciferol [Vitamin D3 (125 Mcg = 5000 Iu)] 125 mcg PO BID 10/20/22 Magnesium 500 mg PO BID 10/20/22 Repaglinide [Prandin] 1 mg PO AC-TID 10/20/22 Tamsulosin [Flomax] 0.4 mg PO DAILY 10/20/22 Turmeric Root Extract [Turmeric] 1,000 mg PO BID 10/20/22 metFORMIN HCL 500 mg PO BID 10/20/22 Calcium Carbonate [Tums] 500 mg PO TID PRN tab 10/22/22 Furosemide [Lasix] 20 mg PO DAILY #30 tab 10/22/22 Rivaroxaban [Xarelto] 20 mg PO DAILY 30 Days #30 tab 10/22/22 lisinopriL [Prinivil] 10 mg PO DAILY 30 Days #30 tab 10/22/22 Controlled Substance Measures - Controlled Substance Measures Is patient prescribed a controlled substance at discharge?: No
== END ==
LOC: PNWHC3 07:44
PROVIDERS: ATTEND Specialist
DX: M51.16 Intervertebral disc disorders with radiculopathy, lumbar region (principal); M47.26 Other spondylosis with radiculopathy, lumbar region; M48.062 Spinal stenosis, lumbar region with neurogenic claudication; Z79.82 Long term (current) use of aspirin; Z87.891 Personal history of nicotine dependence; E11.9 Type 2 diabetes mellitus without complications; Z86.73 Personal history of transient ischemic attack (TIA), and cerebral infarction without residual deficits; I10 Essential (primary) hypertension; M19.90 Unspecified osteoarthritis, unspecified site; Z79.84 Long term (current) use of oral hypoglycemic drugs; Z88.6 Allergy status to analgesic agent; Z88.0 Allergy status to penicillin
CPT/HCPCS: 99211

== ENCOUNTER 2023-02-24 14:04 | Inpatient (IN) | payer MEDICARE ==
[2023-02-24] MEDS: FUROSEMIDE 10 MG/ML 10 ML VIAL IV STA ×2 (14:44→14:52)
[2023-02-24] MEDS ORDERED: FUROSEMIDE 10 MG/ML 2 ML VIAL IV STA (14:52)
[2023-02-24 15:05] LABS: INR 1.3 (<1.2); Partial Thromboplastin Time 31.1 sec (22.0-30.0); Prothrombin Time 12.9 sec (9.0-12.0)
[2023-02-24 15:07] LABS: Basophils % (A) 0 %; Eosinophils # (A) 0.2 k/uL (0-0.7); Eosinophils % (A) 4 %; HCT 30.1 % (39.0-53.0); HGB 9.5 gm/dL (13.0-17.5); Hypochromasia Marked; Lymphocytes % (A) 18 %; MCH 32.5 pg (25.0-35.0); MCHC 31.6 g/dL (31.0-37.0); Macrocytosis Moderate; Mean Platelet Volume 7.4; Monocytes # (A) 0.4 k/uL (0-1.0); Monocytes % (A) 6 %; Neutrophils # (A) 4.1 k/uL (1.3-7.7); Neutrophils % (A) 71 %; Platelet Count 230 k/uL (150-450); RBC 2.93 m/uL (4.30-5.90); RDW 15.8 % (11.5-15.5); WBC 5.7 k/uL (3.8-10.6)
--- NOTE | 2023-02-24 15:12 | ED ---
General Adult HPI - General Chief complaint: Shortness of Breath Stated complaint: CHF Time Seen by Provider: 02/24/23 14:25 Source: patient, EMS, RN notes reviewed, old records reviewed Mode of arrival: EMS Limitations: no limitations - History of Present Illness Initial comments: This is a 67-year-old male presents emergency department with past medical history significant for congestive heart failure. Patient has diabetes hypertension high cost felt. Patient states he went to see his side panel padder because he is unable to breathe as good as normal. Patient states the swelling is gotten considerably worse. Patient complains of swelling to his legs abdomen and arms. Patient saw his side panel padder today sentiment for congestive heart failure would like the patient to be admitted. Patient denies any fever chills or cough - Related Data Home Medications Medication Instructions Recorded Confirmed atenoloL [Tenormin] 25 mg PO BID 05/08/16 02/24/23 Alpha Lipoic Acid 1,200 mg PO BID 10/20/22 02/24/23 Aspirin EC [Ecotrin Low Dose] 81 mg PO DAILY 10/20/22 02/24/23 Atorvastatin [Lipitor] 40 mg PO DAILY 10/20/22 02/24/23 Cholecalciferol [Vitamin D3 (125 125 mcg PO DAILY 10/20/22 02/24/23 Mcg = 5000 Iu)] Magnesium 250 mg PO BID 10/20/22 02/24/23 Tamsulosin [Flomax] 0.4 mg PO DAILY 10/20/22 02/24/23 Furosemide [Lasix] 20 mg PO BID 02/24/23 02/24/23 Vitamin B Complex 1 cap PO DAILY 02/24/23 02/24/23 lisinopriL [Prinivil] 20 mg PO DAILY 02/24/23 02/24/23 metFORMIN HCL ER [Glucophage XR] 250 mg PO DAILY 02/24/23 02/24/23 Previous Rx's Medication Instructions Recorded Calcium Carbonate [Tums] 500 mg PO TID PRN tab 10/22/22 Rivaroxaban [Xarelto] 20 mg PO DAILY 30 Days #30 tab 10/22/22 Allergies Allergy/AdvReac Type Severity Reaction Status Date / Time Penicillins Allergy Rash/Hives Verified 02/24/23 19:24 ibuprofen AdvReac BURING Verified 02/24/23 19:24 SENSATION IN ARMS Review of Systems ROS Statement: Those systems with pertinent positive or pertinent negative responses have been documented in the HPI. ROS Other: All systems not noted in ROS Statement are negative. Past Medical History Past Medical History: Heart Failure, Diabetes Mellitus, Deep Vein Thrombosis (DVT), Hypertension, Osteoarthritis (OA), Prostate Disorder Additional Past Medical History / Comment(s): back pain, MRI scheduled for 10/28/22 History of Any Multi-Drug Resistant Organisms: None Reported Past Surgical History: Orthopedic Surgery Additional Past Surgical History / Comment(s): bilateral total hip replacement. 200705-12-16 TOTAL RIGHT HIP REPLACEMENT. RT KNEE SX. RT SHOULDER SX. COLONOSCOPY Past Anesthesia/Blood Transfusion Reactions: No Reported Reaction Past Psychological History: No Psychological Hx Reported Smoking Status: Former smoker Past Alcohol Use History: None Reported Past Drug Use History: None Reported - Past Family History Mother Family Medical History: Diabetes Mellitus Father Additional Family Medical History / Comment(s): FROM [facility] General Exam - General Exam Comments Initial Comments: GENERAL: Patient is well-developed and well-nourished. Patient is nontoxic and well- hydrated and is in mild distress. ENT: Neck is soft and supple. No significant lymphadenopathy is noted. Oropharynx is clear. Moist mucous membranes. Neck has full range of motion without eliciting any pain. EYES: The sclera were anicteric and conjunctiva were pink and moist. Extraocular movements were intact and pupils were equal round and reactive to light. Eyelids were unremarkable. PULMONARY: Unlabored respirations. Good breath sounds bilaterally. Patient has crackles in the bases and diminished breath sounds bilaterally CARDIOVASCULAR: There is a regular rate and rhythm without any murmurs gallops or rubs. ABDOMEN: Soft and nontender with normal bowel sounds. SKIN: Skin is clear with no lesions or rashes and otherwise unremarkable. NEUROLOGIC: Patient is alert and oriented x3. Cranial nerves II through XII are grossly intact. Motor and sensory are also intact. Normal speech, volume and content. Symmetrical smile. MUSCULOSKELETAL: Normal extremities with adequate strength and full range of motion. Patient has edematous arms and legs as well as edema in the abdomen LYMPHATICS: No significant lymphadenopathy is noted PSYCHIATRIC: Normal psychiatric evaluation. Limitations: no limitations Course Vital Signs 02/24/23 02/24/23 02/24/23 14:12 15:30 16:00 Temperature Pulse Rate 65 64 56 L Respiratory 24 16 8 L Rate Blood Pressure 101/49 96/57 96/57 O2 Sat by Pulse 97 94 L 78 L Oximetry 02/24/23 02/24/23 02/24/23 18:48 19:47 20:24 Temperature Pulse Rate 62 78 68 Respiratory 20 26 H 24 Rate Blood Pressure 101/84 87/61 58/38 O2 Sat by Pulse 96 97 97 Oximetry 02/24/23 02/24/23 02/25/23 21:11 22:11 00:35 Temperature Pulse Rate 58 L 64 72 Respiratory 22 26 H 14 Rate Blood Pressure 135/73 77/37 98/70 O2 Sat by Pulse 97 96 Oximetry 02/25/23 02/25/23 02/25/23 01:00 02:00 03:00 Temperature 97.5 F L Pulse Rate 73 52 L 60 Respiratory 16 16 16 Rate Blood Pressure 100/50 97/43 98/67 O2 Sat by Pulse 95 91 L 94 L Oximetry 02/25/23 02/25/23 02/25/23 04:00 04:57 05:15 Temperature Pulse Rate 65 83 70 Respiratory 16 16 16 Rate Blood Pressure 99/57 129/99 99/80 O2 Sat by Pulse 93 L 92 L 92 L Oximetry 02/25/23 07:30 Temperature Pulse Rate 67 Respiratory 23 Rate Blood Pressure 100/68 O2 Sat by Pulse 93 L Oximetry Medical Decision Making - Medical Decision Making Was pt. sent in by a medical professional or institution (Dr. PA, [employer], urgent care, hospital, or fpc...) When possible be specific @ -No Did you speak to anyone other than the patient for history (EMS, parent, family, police, friend...)? What history was obtained from this source @ -No Did you review nursing and triage notes (agree or disagree)? Why? @ -I reviewed and agree with nursing and triage notes Were old charts reviewed (outside hosp., previous admission, EMS record, old EKG, old radiological studies, urgent care reports/EKG's, fpc records)? Report findings @ -No old charts were reviewed Differential Diagnosis (chest pain, altered mental status, abdominal pain women, abdominal pain men, vaginal bleeding, weakness, fever, dyspnea, syncope, headache, dizziness, GI bleed, back pain, seizure, CVA, palpatations, mental health, musculoskeletal)? @ -not applicable EKG interpreted by me (3pts min.). @ -EKG shows atrial fibrillation at 63 bpm QRS is 94 QT interval 388 QTC is 396. Patient's EKG shows no ST segment elevation or depression X-rays interpreted by me (1pt min.). @ -Patient chest x-ray shows pulmonary edema CT interpreted by me (1pt min.). @ -None done U/S interpreted by me (1pt. min.). @ -None done What testing was considered but not performed or refused? (CT, X-rays, U/S, labs)? Why? @ -None What meds were considered but not given or refused? Why? @ -None Did you discuss the management of the patient with I spoke with the [facility] agreed to admit the patient and I admitted the patient and wrote admitting orders other professionals (professionals i.e. , PA, [employer], lab, RT, psych nurse, social worker aide, diesel powerplant supervisor, teacher, career services officer, case therapist)? Give summary @ -No Was smoking cessation discussed for >3mins.? @ -No Was critical care preformed (if so, how long)? @ -35 minutes Were there social determinants of health that impacted care today? How? (Ho melessness, low income, unemployed, alcoholism, drug addiction, transportation, low edu. Level, literacy, decrease access to med. care, [place] [facility], rehab)? @ -No Was there de-escalation of care discussed even if they declined (Discuss DNR or withdrawal of care, Hospice)? DNR status @ -No What co-morbidities impacted this encounter? (DM, HTN, Smoking, COPD, CAD, Cancer, CVA, ARF, Chemo, Hep., AIDS, mental health diagnosis, sleep apnea, morbid obesity)? @ -None Was patient admitted / discharged? Hospital course, mention meds given and route, prescriptions, significant lab abnormalities, going to OR and other pertinent info. @ -Patient's chest x-ray and BMP indicated pulmonary edema and I gave the patient Lasix and admitted the patient after I spoke with the [facility] I consulted cardiology and nephrology. At time of admission patients pulse ox was 94% and systolic BP was 104. Undiagnosed new problem with uncertain prognosis? @ -No Drug Therapy requiring intensive monitoring for toxicity (Heparin, Nitro, Insulin, Cardizem)? @ -No Were any procedures done? @ -No Diagnosis/symptom? @ -Pulmonary edema Acute, or Chronic, or Acute on Chronic? @ -Acute Uncomplicated (without systemic symptoms) or Complicated (systemic symptoms)? @ -Complicated Side effects of treatment? @ -No Exacerbation, Progression, or Severe Exacerbation? @ -No Poses a threat to life or bodily function? How? (Chest pain, [place], [place], pneumonia, PE, COPD, DKA, ARF, appy, cholecystitis, CVA, Diverticulitis, Homicidal, Suicidal, threat to staff... and all critical care pts) @ -Yes this could lead to hypoxia and to end organ dysfunction Diagnosis/symptom? @ -Acute renal failure Acute, or Chronic, or Acute on Chronic? @ -Acute Uncomplicated (without systemic symptoms) or Complicated (systemic symptoms)? @ -Complicated Side effects of treatment? @ -none Exacerbation, Progression, or Severe Exacerbation] @ -no Poses a threat to life or bodily function? @ -Yes this could lead elect light abnormalities and arrhythmias. Diagnosis/symptom? @ -Hyperkalemia Acute, or Chronic, or Acute on Chronic? @ -Acute Uncomplicated (without systemic symptoms) or Complicated (systemic symptoms)? @ -Complicated Side effects of treatment? @ -none Exacerbation, Progression, or Severe Exacerbation] @ -no Poses a threat to life or bodily function? @ -Yes this could lead to an arrhythmia and - Lab Data Result diagrams: 02/25/23 04:52 02/25/23 04:52 Lab Results 02/24/23 02/24/23 02/24/23 Range/Units 14:42 14:42 14:42 WBC 5.7 (3.8-10.6) k/uL RBC 2.93 L (4.30-5.90) m/uL Hgb 9.5 L (13.0-17.5) gm/dL Hct 30.1 L (39.0-53.0) % MCV 103.0 H (80.0-100.0) fL MCH 32.5 (25.0-35.0) pg MCHC 31.6 (31.0-37.0) g/dL RDW 15.8 H (11.5-15.5) % Plt Count 230 (150-450) k/uL MPV 7.4 Neutrophils % 71 % Lymphocytes % 18 % Monocytes % 6 % Eosinophils % 4 % Basophils % 0 % Neutrophils # 4.1 (1.3-7.7) k/uL Lymphocytes # 1.0 (1.0-4.8) k/uL Monocytes # 0.4 (0-1.0) k/uL Eosinophils # 0.2 (0-0.7) k/uL Basophils # 0.0 (0-0.2) k/uL Hypochromasia Marked Macrocytosis Moderate PT 12.9 H (9.0-12.0) sec INR 1.3 H (<1.2) APTT 31.1 H (22.0-30.0) sec Sodium 138 (137-145) mmol/L Potassium 6.5 H* (3.5-5.1) mmol/L Chloride 112 H (98-107) mmol/L Carbon Dioxide 24 (22-30) mmol/L Anion Gap 2 mmol/L BUN 62 H (9-20) mg/dL Creatinine 2.17 H (0.66-1.25) mg/dL Est GFR (CKD-EPI)AfAm 35 (>60 ml/min/1.73 sqM) Est GFR (CKD-EPI)NonAf 30 (>60 ml/min/1.73 sqM) Glucose 84 (74-99) mg/dL Plasma Lactic Acid Juan Carlos (0.7-2.0) mmol/L Calcium 7.3 L (8.4-10.2) mg/dL Magnesium 3.7 H (1.6-2.3) mg/dL Total Bilirubin 0.4 (0.2-1.3) mg/dL AST 27 (17-59) U/L ALT 20 (4-49) U/L Alkaline Phosphatase 76 (38-126) U/L Troponin I (0.000-0.034) ng/mL NT-Pro-B Natriuret Pep 5360 pg/mL Total Protein 4.4 L (6.3-8.2) g/dL Albumin 1.8 L (3.5-5.0) g/dL 02/24/23 02/24/23 Range/Units 14:42 14:42 WBC (3.8-10.6) k/uL RBC (4.30-5.90) m/uL Hgb (13.0-17.5) gm/dL Hct (39.0-53.0) % MCV (80.0-100.0) fL MCH (25.0-35.0) pg MCHC (31.0-37.0) g/dL RDW (11.5-15.5) % Plt Count (150-450) k/uL MPV Neutrophils % % Lymphocytes % % Monocytes % % Eosinophils % % Basophils % % Neutrophils # (1.3-7.7) k/uL Lymphocytes # (1.0-4.8) k/uL Monocytes # (0-1.0) k/uL Eosinophils # (0-0.7) k/uL Basophils # (0-0.2) k/uL Hypochromasia Macrocytosis PT (9.0-12.0) sec INR (<1.2) APTT (22.0-30.0) sec Sodium (137-145) mmol/L Potassium (3.5-5.1) mmol/L Chloride (98-107) mmol/L Carbon Dioxide (22-30) mmol/L Anion Gap mmol/L BUN (9-20) mg/dL Creatinine (0.66-1.25) mg/dL Est GFR (CKD-EPI)AfAm (>60 ml/min/1.73 sqM) Est GFR (CKD-EPI)NonAf (>60 ml/min/1.73 sqM) Glucose (74-99) mg/dL Plasma Lactic Acid Juan Carlos 1.6 (0.7-2.0) mmol/L Calcium (8.4-10.2) mg/dL Magnesium (1.6-2.3) mg/dL Total Bilirubin (0.2-1.3) mg/dL AST (17-59) U/L ALT (4-49) U/L Alkaline Phosphatase (38-126) U/L Troponin I <0.012 (0.000-0.034) ng/mL NT-Pro-B Natriuret Pep pg/mL Total Protein (6.3-8.2) g/dL Albumin (3.5-5.0) g/dL Critical Care Time Critical Care Time: Yes Total Critical Care Time: 35 Disposition Clinical Impression: Acute pulmonary edema, Acute renal failure, Hyperkalemia Disposition: ADMITTED IP TO THIS [facility] Time of Disposition: 18:59
[2023-02-24 15:13] LABS: ALT 20 U/L (4-49); AST 27 U/L (17-59); African American GFR (CKD) 35 (>60 ml/min/1.73 sqM); Albumin 1.8 g/dL (3.5-5.0); Alkaline Phosphatase 76 U/L (38-126); Anion Gap 2 mmol/L; Blood Urea Nitrogen 62 mg/dL (9-20); Calcium 7.3 mg/dL (8.4-10.2); Carbon Dioxide 24 mmol/L (22-30); Chloride 112 mmol/L (98-107); Glucose 84 mg/dL (74-99); Magnesium 3.7 mg/dL (1.6-2.3); Non-African American GFR(CKD) 30 (>60 ml/min/1.73 sqM); Sodium 138 mmol/L (137-145); Total Bilirubin 0.4 mg/dL (0.2-1.3); Total Protein 4.4 g/dL (6.3-8.2)
[2023-02-24 15:18] LABS: Potassium 6.5 mmol/L (3.5-5.1)
[2023-02-24 15:21] LABS: NT-Pro-B-Type Natriuretic Pept 5360 pg/mL
[2023-02-24] MEDS ORDERED: CALCIUM CHLORIDE 100 MG/ML 10 ML SYRINGE IVP STA (16:19)
--- NOTE | 2023-02-24 17:33 | XR ---
EXAMINATION TYPE: XR chest 2V DATE OF EXAM: 02/24/2023 5:11 PM COMPARISON: Chest radiographs from 11/05/2022 TECHNIQUE: XR chest 2V Frontal and lateral views of the chest. CLINICAL INDICATION:Male, 67 years old with history of difficulty breathing; FINDINGS: Lungs/Pleura: No evidence of focal consolidation or pneumothorax. Blunting of the costophrenic angles is present. Pulmonary vascularity: Pulmonary vascular congestion. Heart/mediastinum: Cardiomediastinal silhouette is enlarged and stable. Musculoskeletal: No acute osseous pathology. IMPRESSION: Cardiomegaly, pulmonary vascular congestion and bilateral pleural effusions. Correlate with BNP for c ongestive heart failure.
[2023-02-24] MEDS ORDERED: SODIUM BICARB 8.4% 50 ML SYR (1 MEQ/ML) IV STA (19:06)
[2023-02-24] MEDS ORDERED: INSULIN REGULAR 100 UNIT/ML VIAL (IV) IV ONE (19:06)
[2023-02-24] MEDS ORDERED: DEXTROSE 50% SYRINGE 50 ML IVP STA (19:06)
[2023-02-24] MEDS ORDERED: SODIUM ZIRCONIUM CYCLOSILICATE 10 GM PACKET PO ONE (19:07)
[2023-02-24] MEDS ORDERED: HYDROCORTISONE SUCCINATE 100 MG/2 ML VIAL IV STA (19:57)
[2023-02-24 20:47] LABS: Anisocytosis Slight; Basophils % (A) 0 %; Eosinophils # (A) 0.3 k/uL (0-0.7); Eosinophils % (A) 4 %; HCT 29.5 % (39.0-53.0); HGB 9.1 gm/dL (13.0-17.5); Hypochromasia Marked; Lymphocytes # (A) 1.4 k/uL (1.0-4.8); Lymphocytes % (A) 23 %; MCH 31.8 pg (25.0-35.0); MCHC 30.7 g/dL (31.0-37.0); MCV 103.6 fL (80.0-100.0); Macrocytosis Moderate; Mean Platelet Volume 7.5; Monocytes # (A) 0.4 k/uL (0-1.0); Monocytes % (A) 6 %; Neutrophils # (A) 3.8 k/uL (1.3-7.7); Neutrophils % (A) 64 %; Platelet Count 259 k/uL (150-450); RBC 2.85 m/uL (4.30-5.90); RDW 16.2 % (11.5-15.5); WBC 5.9 k/uL (3.8-10.6)
[2023-02-24] MEDS: MIDODRINE 5 MG TAB PO SCH (22:08)
[2023-02-25] MEDS: FUROSEMIDE 10 MG/ML 4 ML VIAL IV SCH ×2 (00:34→13:00)
[2023-02-25 02:16] LABS: Appearance,Urine Turbid (Clear); Bilirubin,Urine Negative (Negative); Blood,Urine Large (Negative); Color,Urine Light Red; Glucose,Urine (UA) Trace (Negative); Ketones,Urine Trace (Negative); Leukocyte Esterase,Urine Trace (Negative); Nitrite,Urine Negative (Negative); Protein,Urine 3+ (Negative); Specific Gravity,Urine 1.022 (1.001-1.035); Urobilinogen,Urine <2.0 mg/dL (<2.0)
[2023-02-25] MEDS: NOREPINEPHRINE 4 MG in SODIUM CHLORIDE 0.9% 250 ML IV SCH ×4 (02:21→19:30)
[2023-02-25 02:36] LABS: RBC,Urine 1 /hpf (0-5); Squamous Epithelial Cell,Urine 1 /hpf (0-4); WBC,Urine 10 /hpf (0-5)
[2023-02-25 02:37] LABS: Bacteria,Urine Few /hpf; Hyaline Casts,Urine 3 /lpf (0-2)
--- NOTE | 2023-02-25 02:40 | P.CNPUL ---
History of Present Illness Consult date: 02/25/23 Requesting physician: Loulou Andrew Reason for consult: dyspnea Chief complaint: Shortness of breath History of present illness: I am seeing this patient in new consultation today 02/25/2023 for suspected acute exacerbation of diastolic congestive heart failure. Patient is a 67-year-old white male with past medical history significant for atrial fibrillation, hyperlipidemia, hypertension, diabetes mellitus type 2, DVT, BPH, bullous pemphigoid and chronic back pain. Patient reportedly went to his front office spec for a scheduled stress test yesterday, and was directed to the emergency room. He has been having shortness of breath that has progressively worsened over the last couple weeks. It is especially worse on exertion, and states he can only walk approximately 5 feet. He sleeps in a recliner at home. He's had progressively worsening generalized swelling. Denies any chest pain, heart palpitations, syncope. Chest x-ray on arrival showed cardiomegaly with pulmonary vascular congestion and bilateral pleural effusions. Patient is currently sitting up in bed, on 4 L/m nasal cannula, and is fairly comfortable. He does have gross anasarca. He is pale. Blood pressure is borderline. He has been started on midodrine, and may have to be transferred to the intensive care unit for norepinephrine infusion. Last blood pressure was 90/50. ECG shows atrial fibrillation with controlled ventricular rate. Currently receiving Lasix 40 mg 3 times a day. Barkley catheter has been inserted for accurate intake and output. Patient does have a component of acute kidney injury. He was hyperkalemic, with a potassium of 6.5 on arrival, and was given 10 units of regular insulin, 1 amp D50 W, 1 amp sodium bicarb, and Lokelma. Potassium level did come down to 5.8. BMP on arrival shows sodium 138, potassium down to 5.8, chloride of 112, serum bicarbonate 24, BUN 62, creatinine 2.17, glucose 84. CBC on arrival shows a WBC count of 5.7, hemoglobin 9.5, hematocrit 30.1, platelets 230. He is anemic, and his Xarelto dose was reportedly increased for A. fib prophylaxis back in September 2022. He was found to have new onset A. fib. He denies any bloody bowel movements or melena. Echocardiogram done at that time showed a normal ejection fraction of 55-60% without any valvular abnormality. NT proBNP was elevated at 5360. As stated above, patient has been hypotensive, and may require transfer to the intensive care unit on Levophed if no improvement with midodrine. Review of Systems REVIEW OF SYSTEMS: CONSTITUTIONAL: Admits recent weight gain but is unsure of how much. Denies fever EYES: Denies change in vision. EARS, NOSE, MOUTH, THROAT: Denies headaches, denies sore throat. CARDIOVASCULAR: Denies chest pain, palpitations or syncopal episodes. Admits increased generalized swelling and orthopnea RESPIRATORY: Denies cough, congestion or hemoptysis. Admits exertional shortness of breath GASTROINTESTINAL: Denies change in appetite, abdominal pain, nausea and vomiting, or diarrhea GENITOURINARY: Denies hematuria, denies infections. MUSKULOSKELETAL: Admits chronic back pain INTEGUMENTARY: Denies rash, denies eczema. Admits generalized swelling. Admits pressure injuries on bilateral buttocks. NEUROLOGICAL: Denies recent memory loss, no recent seizure activity. PSYCHIATRIC: Denies anxiety, denies depression. HEMATOLOGIC/LYMPHATIC: Denies anemia, denies enlarged lymph node Past Medical History Past Medical History: Heart Failure, Diabetes Mellitus, Deep Vein Thrombosis (DVT), Hypertension, Osteoarthritis (OA), Prostate Disorder Additional Past Medical History / Comment(s): back pain, MRI scheduled for 10/28/22 History of Any Multi-Drug Resistant Organisms: None Reported Past Surgical History: Orthopedic Surgery Additional Past Surgical History / Comment(s): bilateral total hip replacement. 200705-12-16 TOTAL RIGHT HIP REPLACEMENT. RT KNEE SX. RT SHOULDER SX. COLONOSCOPY Past Anesthesia/Blood Transfusion Reactions: No Reported Reaction Past Psychological History: No Psychological Hx Reported Smoking Status: Former smoker Past Alcohol Use History: None Reported Past Drug Use History: None Reported - Past Family History Mother Family Medical History: Diabetes Mellitus Father Additional Family Medical History / Comment(s): FROM SPINAL MENNINGITIS Medications and Allergies Home Medications Medication Instructions Recorded Confirmed Type atenoloL [Tenormin] 25 mg PO BID 05/08/16 02/24/23 History Alpha Lipoic Acid 1,200 mg PO BID 10/20/22 02/24/23 History Aspirin EC [Ecotrin Low Dose] 81 mg PO DAILY 10/20/22 02/24/23 History Atorvastatin [Lipitor] 40 mg PO DAILY 10/20/22 02/24/23 History Cholecalciferol [Vitamin D3 (125 125 mcg PO DAILY 10/20/22 02/24/23 History Mcg = 5000 Iu)] Magnesium 250 mg PO BID 10/20/22 02/24/23 History Tamsulosin [Flomax] 0.4 mg PO DAILY 10/20/22 02/24/23 History Calcium Carbonate [Tums] 500 mg PO TID PRN tab 10/22/22 02/24/23 Rx Rivaroxaban [Xarelto] 20 mg PO DAILY 30 Days #30 tab 10/22/22 02/24/23 Rx Furosemide [Lasix] 20 mg PO BID 02/24/23 02/24/23 History Vitamin B Complex 1 cap PO DAILY 02/24/23 02/24/23 History lisinopriL [Prinivil] 20 mg PO DAILY 02/24/23 02/24/23 History metFORMIN HCL ER [Glucophage XR] 250 mg PO DAILY 02/24/23 02/24/23 History Allergies Allergy/AdvReac Type Severity Reaction Status Date / Time Penicillins Allergy Rash/Hives Verified 02/24/23 19:24 ibuprofen AdvReac BURING Verified 02/24/23 19:24 SENSATION IN ARMS Physical Exam Vitals: Vital Signs Temp Pulse Resp BP Pulse Ox 02/25/23 01:00 97.5 F L 73 16 100/50 95 02/25/23 00:35 72 14 98/70 02/24/23 22:11 64 26 H 77/37 96 02/24/23 21:11 58 L 22 135/73 97 02/24/23 20:24 68 24 58/38 97 02/24/23 19:47 78 26 H 87/61 97 02/24/23 18:48 62 20 101/84 96 02/24/23 16:00 56 L 8 L 96/57 78 L 02/24/23 15:30 64 16 96/57 94 L 02/24/23 14:12 65 24 101/49 97 Intake and Output 02/24/23 02/24/23 02/25/23 14:59 22:59 06:59 Other: Weight 120.202 kg GENERAL EXAM: Alert, 67-year-old white male, who is pale and appears weak, he is fairly comfortable in no apparent distress. There is gross anasarca. HEAD: Normocephalic and atraumatic EYES: Normal reaction of pupils, equal size. NOSE: Clear with pink turbinates. THROAT: No erythema or exudates. NECK: No masses, no JVD. CHEST: No chest wall deformity. LUNGS: Equal air entry with bibasilar inspiratory crackles. No wheeze, rhonchi or dullness. On 4 L/m nasal cannula. No conversational dyspnea or accessory muscle use.. CVS: S1 and S2 normal with no audible murmur, irregular rhythm. No extra heart sounds ABDOMEN: Obese abdomen, no hepatosplenomegaly, active bowel sounds, no guarding or rigidity. SPINE: No scoliosis or deformity SKIN: No rashes. Bilateral buttocks stage II pressure injuries. Do not appear infected. There is generalized ecchymosis. CENTRAL NERVOUS SYSTEM: No focal deficits, tone is normal in all 4 extremities. EXTREMITIES: There is peripheral edema pitting edema of bilateral upper and lower extremities, 3-4+. No clubbing, or cyanosis. Peripheral pulses are intact. Results - Laboratory Findings CBC and BMP: 02/25/23 04:52 02/25/23 04:52 PT/INR, D-dimer PT 12.9 sec (9.0-12.0) H 02/24/23 14:42 INR 1.3 (<1.2) H 02/24/23 14:42 Abnormal lab findings: Abnormal Labs 02/24/23 02/24/23 02/24/23 14:42 14:42 14:42 RBC 2.93 L Hgb 9.5 L Hct 30.1 L MCV 103.0 H MCHC RDW 15.8 H PT 12.9 H INR 1.3 H APTT 31.1 H Potassium 6.5 H* Chloride 112 H BUN 62 H Creatinine 2.17 H Calcium 7.3 L Magnesium 3.7 H Total Protein 4.4 L Albumin 1.8 L 02/24/23 02/24/23 20:36 23:29 RBC 2.85 L Hgb 9.1 L Hct 29.5 L MCV 103.6 H MCHC 30.7 L RDW 16.2 H PT INR APTT Potassium 5.8 H Chloride BUN Creatinine Calcium Magnesium Total Protein Albumin - Diagnostic Findings Chest x-ray: image reviewed Assessment and Plan Assessment: Acute hypoxemic respiratory failure secondary to exacerbation of diastolic congestive heart failure. Chest x-ray on arrival shows cardiomegaly with pulmonary vascular congestion and small bilateral pleural effusions. NT proBNP was elevated at 5360. Recent echocardiogram back in September, shows left ventricular hypertrophy, with a preserved left ventricular ejection fraction of 55-60%, and no valvular abnormalities reported. The patient is currently on 2 L of Oxymizer nasal cannula. The patient is presenting with acute decompensated heart failure. The patient has diffuse anasarca and acute kidney injury. Hypotension, possibly cardiogenic, patient was started on Midodrine. May have to start vasopressors in the form of norepinephrine if refractory hypotension Atrial fibrillation with controlled ventricular rate, anticoagulated on Xarelto Acute kidney injury, possibly cardiorenal Hyperkalemia, improved Anemia, no reported acute blood loss. Mildly macrocytic Hypoalbuminemia and gross anasarca Pressure injuries, stage II, on bilateral buttocks Hyperlipidemia BPH Obesity, with a BMI of 39 kg/m Plan: Patient's medications, labs, chest x-ray reviewed Continue supplemental oxygen Agree with diuresis Continue with Midodrine, and may have to start norepinephrine infusion if persistent and refractory hypotension. This would require transfer to the intensive care unit. Hold antihypertensives Hyperkalemia has improved, potassium is 5.8 Nephrology was added for acute kidney injury Cardiology has been consulted Check fecal occult and monitor for bleeding We will continue to follow and make recommendations I have personally seen and examined the patient, performed the documentation and the assessment and plan as written. Number of minutes spent on the visit:20 This is a joint evaluation that was done along with a nurse practitioner. The patient was seen and examined. The patient presents with shortness of breath, hypoxic respiratory failure, diffuse anasarca, acute kidney injury and acute hyperkalemia. The patient has been diagnosed having chronic atrial fibrillation and the patient has been diagnosed having CHF. . The presentation could be related to decompensated heart failure with diffuse anasarca volume overload. Underlying chronic liver disease cannot be completely excluded. It is also possible the patient was also added into acute kidney injury with secondary flu id retention causing this massive fluid overload. The potassium level was at 6.7, admission, dropped to 5.8 post treatment and this morning is up to 6.8. The patient has received hyperkalemia treatment and we are monitoring the levels. No EKG changes at this point in time. The patient was having his CPK checked. We'll do a serum protein electrophoresis and immunofixation. We'll do a ultrasound the kidneys to rule out hydronephrosis. We'll put the patient on Lasix drip at 5 mg an hour. We'll monitor the potassium level and treat accordingly. Nephrology has been consulted. I suggest repeating the echo of heart. Titrate oxygen flow to maintain saturation above 90%. The chest x-ray w as reviewed and the patient has decompensated heart failure and volume overload. At the same time, the patient is on low-dose pressors. Patient is on norepinephrine which is running at 0.03 mcg/kg/m. Monitor urine output. Keep Barkley catheter in place. Consult nephrology. Consult cardiology. Time with Patient: Greater than 30
[2023-02-25 02:45] LABS: Basophils % (A) 0 %; Eosinophils # (A) 0.1 k/uL (0-0.7); Eosinophils % (A) 1 %; HGB 8.7 gm/dL (13.0-17.5); Hypochromasia Marked; Lymphocytes # (A) 0.9 k/uL (1.0-4.8); Lymphocytes % (A) 14 %; MCH 31.5 pg (25.0-35.0); MCHC 29.9 g/dL (31.0-37.0); MCV 105.5 fL (80.0-100.0); Macrocytosis Moderate; Mean Platelet Volume 8.2; Monocytes # (A) 0.3 k/uL (0-1.0); Monocytes % (A) 4 %; Neutrophils # (A) 5.1 k/uL (1.3-7.7); Neutrophils % (A) 80 %; Platelet Count 220 k/uL (150-450); RBC 2.75 m/uL (4.30-5.90); RDW 15.8 % (11.5-15.5); WBC 6.4 k/uL (3.8-10.6)
[2023-02-25 05:41] LABS: Basophils % (A) 0 %; Eosinophils % (A) 1 %; HCT 31.1 % (39.0-53.0); HGB 9.6 gm/dL (13.0-17.5); Hypochromasia Marked; Lymphocytes # (A) 0.7 k/uL (1.0-4.8); Lymphocytes % (A) 11 %; MCH 32.4 pg (25.0-35.0); MCHC 30.8 g/dL (31.0-37.0); Macrocytosis Moderate; Mean Platelet Volume 7.7; Monocytes # (A) 0.1 k/uL (0-1.0); Monocytes % (A) 2 %; Neutrophils # (A) 5.3 k/uL (1.3-7.7); Neutrophils % (A) 85 %; Platelet Count 239 k/uL (150-450); RBC 2.96 m/uL (4.30-5.90); WBC 6.2 k/uL (3.8-10.6)
[2023-02-25 06:03] LABS: African American GFR (CKD) 32 (>60 ml/min/1.73 sqM); Anion Gap 3 mmol/L; Blood Urea Nitrogen 61 mg/dL (9-20); Calcium 7.6 mg/dL (8.4-10.2); Carbon Dioxide 25 mmol/L (22-30); Chloride 111 mmol/L (98-107); Glucose 70 mg/dL (74-99); Non-African American GFR(CKD) 28 (>60 ml/min/1.73 sqM); Sodium 139 mmol/L (137-145)
[2023-02-25 06:50] LABS: Potassium 6.8 mmol/L (3.5-5.1)
[2023-02-25] MEDS ORDERED: INSULIN REGULAR 100 UNIT/ML VIAL (IV) IV ONE ×2 (07:10→14:00)
[2023-02-25] MEDS ORDERED: DEXTROSE 50% SYRINGE 50 ML IVP STA ×2 (07:10→12:39)
[2023-02-25] MEDS ORDERED: ALBUTEROL NEBULIZED (CONC) 10 MG, SODIUM CHLORIDE 0.9% NEBULIZ 3 ML INHALATION STA ×2 (07:12)
[2023-02-25] MEDS ORDERED: SODIUM ZIRCONIUM CYCLOSILICATE 10 GM PACKET PO ONE (07:15)
[2023-02-25 08:11] LABS: Glucose,Whole Blood 115 mg/dL (70-110)
--- NOTE | 2023-02-25 08:15 | XR ---
EXAMINATION TYPE: XR chest 1V portable DATE OF EXAM: 02/25/2023 COMPARISON: 02/24/2023 HISTORY: Shortness of breath TECHNIQUE: Single frontal view of the chest is obtained. FINDINGS: Bilateral consolidation and small effusion. AC joint arthropathy. No pneumothorax. Heart i s enlarged. Osseous structures are stable IMPRESSION: Bilateral consolidation and pleural effusion. Interstitium is stable correlate for CHF v ersus diffuse pneumonia
[2023-02-25] MEDS: RIVAROXABAN 20 MG TAB PO SCH (08:32)
[2023-02-25] MEDS: MIDODRINE 5 MG TAB PO SCH ×3 (08:32→17:56)
[2023-02-25] MEDS: PANTOPRAZOLE 40 MG/10 ML VIAL IVP SCH (08:34)
[2023-02-25 09:37] LABS: Glucose,Whole Blood 133 mg/dL (70-110)
--- NOTE | 2023-02-25 11:12 | P.PCN ---
Date of Procedure: 02/25/23 Preoperative Diagnosis: Acute hypoxic respiratory failure Postoperative Diagnosis: Acute hypoxic respiratory failure Procedure(s) Performed: Central line, arterial line Anesthesia: local Surgeon: Haydee Guadalupe Pathology: other Condition: critical Disposition: ICU Operative Findings: Indication: Hemodynamic monitoring/Intravenous access. A time-out was completed verifying correct patient, procedure, site, positioning, and implant(s) or special equipment if applicable. The patient was placed in a dependent position appropriate for central line placement based on the vein to be cannulated. The patients [right/left] shoulder left chest prepped and draped in sterile fashion. 1% Lidocaine was used to anesthetize the surrounding skin area. A triple lumen 9F Cordis catheter was introduced into the left subclavian vein using Seldinger technique. The catheter was threaded smoothly over the guide wire and appropriate blood return was obtained. Each lumen of the catheter was evacuated of air and flushed with sterile saline. The catheter was then sutured in place to the skin and a sterile dressing applied. Perfusion to the extremity distal to the point of catheter insertion was checked and found to be adequate. The patient tolerated the procedure well and there were no complications. Indication: Hemodynamic monitoring. A time-out was completed verifying correct patient, procedure, site, positioning, and implant(s) or special equipment if applicable. Allens test was performed to ensure adequate perfusion. The patients [right wrist was prepped and draped in sterile fashion. 1% Lidocaine was used to anesthetize the area. An 18G Arrow arterial line was introduced into the radial artery. The catheter was threaded over the guide wire and the needle was removed with appropriate pulsatile blood return. Blood loss was minimal. The catheter was then sutured in place to the skin and a sterile dressing applied. Perfusion to the extremity distal to the point of catheter insertion was checked and found to be adequate. The patient tolerated the procedure well and there were no complications.
--- NOTE | 2023-02-25 11:45 | XR ---
EXAMINATION TYPE: XR chest 1V confirm line plcmt DATE OF EXAM: 02/25/2023 COMPARISON: 02/25/2023 HISTORY: Possible pneumothorax TECHNIQUE: Single frontal view of the chest is obtained. FINDINGS: Bilateral consolidation and pleural effusion stable. There is a left-sided central line wi th the tip overlying the SVC and no sizable pneumothorax. Diffuse interstitial pattern. Hypertrophic change of the vertebral column and AC joints. IMPRESSION: 1. Central line appears in good position with tip overlying the SVC and no sizable pneumothorax. 2. Bilateral infiltrate and pleural effusion stable.
[2023-02-25 11:53] LABS: Glucose,Whole Blood 150 mg/dL (70-110)
--- NOTE | 2023-02-25 12:08 | P.NPCON ---
History of Present Illness - Reason for Consult acute renal failure - History of Present Illness Patient is a 67-year-old male with history of hypertension, type 2 diabetes, BPH, A. fib who is admitted to the hospital with increased lower extremity swelling and worsening shortness of breath over the last 1-2 weeks. Patient denied any fever or chills. No cough. No previous history of kidney diseases. No history of use of NSAIDs Serum creatinine was 2.1 on admission and increased to 2.3 today. Potassium was 6.8 this morning. Previous creatinine 1.3 on 11/04/2022 Patient has been hypotensive and is currently maintained on levo fed. Blood pressure was as low as 58/38 the ER Urine output has decreased since admission and currently at 0-5 mL per hour. Maintained on LATONIA inhibitor's metformin and Lasix prior to admission. Being started on Lasix drip. Chest x-ray shows bilateral diffuse infiltrates and pleural effusion. Review of Systems Aspirin HPI Past Medical History Past Medical History: Heart Failure, Diabetes Mellitus, Deep Vein Thrombosis (DVT), Hypertension, Osteoarthritis (OA), Prostate Disorder Additional Past Medical History / Comment(s): back pain, MRI scheduled for 10/28/22 History of Any Multi-Drug Resistant Organisms: None Reported Past Surgical History: Orthopedic Surgery Additional Past Surgical History / Comment(s): bilateral total hip replacement. 200705-12-16 TOTAL RIGHT HIP REPLACEMENT. RT KNEE SX. RT SHOULDER SX. COLONOSCOPY Past Anesthesia/Blood Transfusion Reactions: No Reported Reaction Past Psychological History: No Psychological Hx Reported Smoking Status: Former smoker Past Alcohol Use History: None Reported Past Drug Use History: None Reported - Past Family History Mother Family Medical History: Diabetes Mellitus Father Additional Family Medical History / Comment(s): FROM SPINAL MENNINGITIS Medications and Allergies Home Medications Medication Instructions Recorded Confirmed Type atenoloL [Tenormin] 25 mg PO BID 05/08/16 02/24/23 History Alpha Lipoic Acid 1,200 mg PO BID 10/20/22 02/24/23 History Aspirin EC [Ecotrin Low Dose] 81 mg PO DAILY 10/20/22 02/24/23 History Atorvastatin [Lipitor] 40 mg PO DAILY 10/20/22 02/24/23 History Cholecalciferol [Vitamin D3 (125 125 mcg PO DAILY 10/20/22 02/24/23 History Mcg = 5000 Iu)] Magnesium 250 mg PO BID 10/20/22 02/24/23 History Tamsulosin [Flomax] 0.4 mg PO DAILY 10/20/22 02/24/23 History Calcium Carbonate [Tums] 500 mg PO TID PRN tab 10/22/22 02/24/23 Rx Rivaroxaban [Xarelto] 20 mg PO DAILY 30 Days #30 tab 10/22/22 02/24/23 Rx Furosemide [Lasix] 20 mg PO BID 02/24/23 02/24/23 History Vitamin B Complex 1 cap PO DAILY 02/24/23 02/24/23 History lisinopriL [Prinivil] 20 mg PO DAILY 02/24/23 02/24/23 History metFORMIN HCL ER [Glucophage XR] 250 mg PO DAILY 02/24/23 02/24/23 History Allergies Allergy/AdvReac Type Severity Reaction Status Date / Time Penicillins Allergy Rash/Hives Verified 02/24/23 19:24 ibuprofen AdvReac BURING Verified 02/24/23 19:24 SENSATION IN ARMS Physical Exam Vitals: Vital Signs Temp Pulse Resp BP Pulse Ox 02/25/23 09:53 98.1 F 66 18 101/79 94 L 02/25/23 08:37 81 20 90/43 94 L 02/25/23 08:24 72 02/25/23 08:18 75 20 114/89 95 02/25/23 08:14 69 02/25/23 07:30 67 23 100/68 93 L 02/25/23 05:15 70 16 99/80 92 L 02/25/23 04:57 83 16 129/99 92 L 02/25/23 04:00 65 16 99/57 93 L 02/25/23 03:00 60 16 98/67 94 L 02/25/23 02:00 52 L 16 97/43 91 L 02/25/23 01:00 97.5 F L 73 16 100/50 95 02/25/23 00:35 72 14 98/70 02/24/23 22:11 64 26 H 77/37 96 02/24/23 21:11 58 L 22 135/73 97 02/24/23 20:24 68 24 58/38 97 02/24/23 19:47 78 26 H 87/61 97 02/24/23 18:48 62 20 101/84 96 02/24/23 16:00 56 L 8 L 96/57 78 L 02/24/23 15:30 64 16 96/57 94 L 02/24/23 14:12 65 24 101/49 97 Intake and Output 02/24/23 02/25/23 02/25/23 22:59 06:59 14:59 Intake Total 81.06 Balance 81.06 Intake: Intake, IV Titration 81.06 Amount Norepinephrine 4 mg In 81.06 Sodium Chloride 0.9% 250 ml @ 0.03 MCG/KG/MIN 13. 739 mls/hr IV .[id number] Rx#:[id number] Patient is awake, comfortable, in no acute distress Examination of the heart S1 and S2 Examination of the lungs bilateral breath sounds are heard, decreased breath sounds at the bases with basilar crackles. 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 Acute kidney injury, oliguric ATN secondary to hypotension. UA shows 3+ protein and large blood. I believe this is a Barkley specimen. 2. Acute hyperkalemia associated with acute kidney injury and use of LATONIA inhibitor's in the setting of hypotension. 3. Volume overload 4. Acute diastolic CHF. Ejection fraction was 55-60% on echocardiogram in September 2022. 5. Hypotension rule out underlying infection. Ejection fraction is preserved. Check cortisol level from initial blood draw as patient did receive Solu-Cortef in the ER. 6. Chronic A. fib with controlled ventricular response maintained on xarelto Plan: Continue with Lasix drip. Increased to 10 mg an hour Check cortisol level from initial blood draw. Check ultrasound of the kidneys Continue to hold off on LATONIA inhibitor's Repeat labs in a.m. Avoid nephrotoxic agents Thank you for the consultation. We will continue to follow the patient with you during her hospitalization.
--- NOTE | 2023-02-25 12:11 | P.HPIM ---
History of Present Illness Patient is a pleasant 67-year-old male with a history of diastolic dysfunction normal ejection fraction the past came in with anasarca fluid overload and shortness of breath has been going on for about 2 weeks. Patient has significa nt anasarca involving the entire abdomen bilateral lower extremity is 4+ pitting pedal edema and edema of the bilateral upper extremity is. Patient has a baseline creatinine of around 1.30-1.5 present creatinine is 2.3 2. Patient is hypotensive facet of troponin is negative without any significant EKG changes. Patient does have history of atrial fibrillation presently rate controlled on atenolol which is being held at this time because of hypotension patient also has serum potassium of around 6.8 presently patient was given IV insulin and calcium gluconate. Patient is presently on norepinephrine drip, Lasix drip. Liver enzymes are within normal limits. Patient doesn't have any leukocytosis. Patient doesn't have any fever chills denied any cough with the significant sputum production. REVIEW OF SYSTEMS: CONSTITUTIONAL: No fever, no malaise, no fatigue. HEENT: No recent visual problems or hearing problems. Denied any sore throat. CARDIOVASCULAR: No chest pain, orthopnea, PND, no palpitations, no syncope. PULMONARY: no hemoptysis. GASTROINTESTINAL: No diarrhea, no nausea, no vomiting, no abdominal pain. NEUROLOGICAL: No headaches, no weakness, no numbness. HEMATOLOGICAL: Denies any bleeding or petechiae. GENITOURINARY: Denies any burning micturition, frequency, or urgency. MUSCULOSKELETAL/RHEUMATOLOGICAL: Denies any joint pain, swelling, or any muscle pain. ENDOCRINE: Denies any polyuria or polydipsia. The rest of the 14-point review of systems is negative. PHYSICAL EXAMINATION: GENERAL: The patient is alert and oriented x3, not in any acute distress. Obese anasarca HEENT: Pupils are round and equally reacting to light. EOMI. No scleral icterus. No conjunctival pallor. Normocephalic, atraumatic. No pharyngeal erythema. No thyromegaly. CARDIOVASCULAR: S1 and S2 present. No murmurs, rubs, or gallops. PULMONARY: Chest is clear to auscultation, no wheezing or crackles. ABDOMEN: Soft, nontender, nondistended, normoactive bowel sounds. No palpable organomegaly. MUSCULOSKELETAL: No joint swelling or deformity. EXTREMITIES: No cyanosis, clubbing, anasarca, pitting pedal edema as mentioned above edema of the abdominal wall. NEUROLOGICAL: Gross neurological examination did not reveal any focal deficits. SKIN: Stage II pressure ulcers Assessment and plan -Cardiogenic shock: Patient is on IV Lasix drip, patient does have metastatic dysfunction. No valve abnormalities. Chest x-ray is consistent with the congestive heart failure exacerbation. Patient is also are not epinephrine drip because of hypotension and shock. --Acute hypoxic respiratory failure: Secondary to heart failure exacerbation. Patient may have undiagnosed sleep apnea as well -Atrial fibrillation paroxysmal patient is rate controlled at that time patient is on anticoagulation which will be continued, atenolol is being held because of renal failure -acute renal failure cardiorenal a she does have chronic kidney disease probably secondary secondary to nephrosclerosis may be secondary to hypertension. -Hyperkalemia secondary to acute renal failure received above-mentioned treatment. -Macrocytic anemia will obtain B12 levels -Pressures are also stage II bilateral buttocks local wound care Moderate obesity possibility of sleep apnea outpatient sleep study next and- hyperlipidemia -Benign prostatic hypertrophy patient is on tamsulosin which is being held t emporally at this time because of shock but need to be resumed once his blood pressure improves as soon as possible -Bullous pemphigus has a wound in the left lower extremity, stage II ulcer local wound care DVT prophylaxis: On anticoagulation as mentioned above Past Medical History Past Medical History: Heart Failure, Diabetes Mellitus, Deep Vein Thrombosis (DVT), Hypertension, Osteoarthritis (OA), Prostate Disorder Additional Past Medical History / Comment(s): back pain, MRI scheduled for 10/28/22 History of Any Multi-Drug Resistant Organisms: None Reported Past Surgical History: Orthopedic Surgery Additional Past Surgical History / Comment(s): bilateral total hip replacement. 2007 .05-12-16 TOTAL RIGHT HIP REPLACEMENT. RT KNEE SX. RT SHOULDER SX. COLONOSCOPY Past Anesthesia/Blood Transfusion Reactions: No Reported Reaction Past Psychological History: No Psychological Hx Reported Smoking Status: Former smoker Past Alcohol Use History: None Reported Past Drug Use History: None Reported - Past Family History Mother Family Medical History: Diabetes Mellitus Father Additional Family Medical History / Comment(s): FROM SPINAL MENNINGITIS Medications and Allergies Home Medications Medication Instructions Recorded Confirmed Type atenoloL [Tenormin] 25 mg PO BID 05/08/16 02/24/23 History Alpha Lipoic Acid 1,200 mg PO BID 10/20/22 02/24/23 History Aspirin EC [Ecotrin Low Dose] 81 mg PO DAILY 10/20/22 02/24/23 History Atorvastatin [Lipitor] 40 mg PO DAILY 10/20/22 02/24/23 History Cholecalciferol [Vitamin D3 (125 125 mcg PO DAILY 10/20/22 02/24/23 History Mcg = 5000 Iu)] Magnesium 250 mg PO BID 10/20/22 02/24/23 History Tamsulosin [Flomax] 0.4 mg PO DAILY 10/20/22 02/24/23 History Calcium Carbonate [Tums] 500 mg PO TID PRN tab 10/22/22 02/24/23 Rx Rivaroxaban [Xarelto] 20 mg PO DAILY 30 Days #30 tab 10/22/22 02/24/23 Rx Furosemide [Lasix] 20 mg PO BID 02/24/23 02/24/23 History Vitamin B Complex 1 cap PO DAILY 02/24/23 02/24/23 History lisinopriL [Prinivil] 20 mg PO DAILY 02/24/23 02/24/23 History metFORMIN HCL ER [Glucophage XR] 250 mg PO DAILY 02/24/23 02/24/23 History Allergies Allergy/AdvReac Type Severity Reaction Status Date / Time Penicillins Allergy Rash/Hives Verified 02/24/23 19:24 ibuprofen AdvReac BURING Verified 02/24/23 19:24 SENSATION IN ARMS Physical Exam Vitals: Vital Signs Temp Pulse Resp BP Pulse Ox 02/25/23 09:53 98.1 F 66 18 101/79 94 L 02/25/23 08:37 81 20 90/43 94 L 02/25/23 08:24 72 02/25/23 08:18 75 20 114/89 95 02/25/23 08:14 69 02/25/23 07:30 67 23 100/68 93 L 02/25/23 05:15 70 16 99/80 92 L 02/25/23 04:57 83 16 129/99 92 L 02/25/23 04:00 65 16 99/57 93 L 02/25/23 03:00 60 16 98/67 94 L 02/25/23 02:00 52 L 16 97/43 91 L 02/25/23 01:00 97.5 F L 73 16 100/50 95 02/25/23 00:35 72 14 98/70 02/24/23 22:11 64 26 H 77/37 96 02/24/23 21:11 58 L 22 135/73 97 02/24/23 20:24 68 24 58/38 97 02/24/23 19:47 78 26 H 87/61 97 02/24/23 18:48 62 20 101/84 96 02/24/23 16:00 56 L 8 L 96/57 78 L 02/24/23 15:30 64 16 96/57 94 L 02/24/23 14:12 65 24 101/49 97 Intake and Output 02/24/23 02/25/23 02/25/23 22:59 06:59 14:59 Intake Total 81.06 Balance 81.06 Intake: Intake, IV Titration 81.06 Amount Norepinephrine 4 mg In 81.06 Sodium Chloride 0.9% 250 ml @ 0.03 MCG/KG/MIN 13. 739 mls/hr IV .[id number] [facility] Rx#:[id number] Results CBC & Chem 7: 02/25/23 04:52 02/25/23 04:52 Labs: Abnormal Lab Results - Last 24 Hours (Table) 02/24/23 02/24/23 02/24/23 Range/Units 14:42 14:42 14:42 RBC 2.93 L (4.30-5.90) m/uL Hgb 9.5 L (13.0-17.5) gm/dL Hct 30.1 L (39.0-53.0) % MCV 103.0 H (80.0-100.0) fL MCHC (31.0-37.0) g/dL RDW 15.8 H (11.5-15.5) % Lymphocytes # (1.0-4.8) k/uL PT 12.9 H (9.0-12.0) sec INR 1.3 H (<1.2) APTT 31.1 H (22.0-30.0) sec Potassium 6.5 H* (3.5-5.1) mmol/L Chloride 112 H (98-107) mmol/L BUN 62 H (9-20) mg/dL Creatinine 2.17 H (0.66-1.25) mg/dL Glucose (74-99) mg/dL POC Glucose (mg/dL) (70-110) mg/dL Calcium 7.3 L (8.4-10.2) mg/dL Magnesium 3.7 H (1.6-2.3) mg/dL Total Protein 4.4 L (6.3-8.2) g/dL Albumin 1.8 L (3.5-5.0) g/dL Urine Protein (Negative) Urine Glucose (UA) (Negative) Urine Ketones (Negative) Urine Blood (Negative) Ur Leukocyte Esterase (Negative) Urine WBC (0-5) /hpf Urine Bacteria (None) /hpf Hyaline Casts (0-2) /lpf 02/24/23 02/24/23 02/24/23 Range/Units 20:36 23:18 23:29 RBC 2.85 L 2.75 L (4.30-5.90) m/uL Hgb 9.1 L 8.7 L (13.0-17.5) gm/dL Hct 29.5 L 29.0 L (39.0-53.0) % MCV 103.6 H 105.5 H (80.0-100.0) fL MCHC 30.7 L 29.9 L (31.0-37.0) g/dL RDW 16.2 H 15.8 H (11.5-15.5) % Lymphocytes # 0.9 L (1.0-4.8) k/uL PT (9.0-12.0) sec INR (<1.2) APTT (22.0-30.0) sec Potassium (3.5-5.1) mmol/L Chloride (98-107) mmol/L BUN (9-20) mg/dL Creatinine (0.66-1.25) mg/dL Glucose (74-99) mg/dL POC Glucose (mg/dL) (70-110) mg/dL Calcium (8.4-10.2) mg/dL Magnesium (1.6-2.3) mg/dL Total Protein (6.3-8.2) g/dL Albumin (3.5-5.0) g/dL Urine Protein 3+ H (Negative) Urine Glucose (UA) Trace H (Negative) Urine Ketones Trace H (Negative) Urine Blood Large H (Negative) Ur Leukocyte Esterase Trace H (Negative) Urine WBC 10 H (0-5) /hpf Urine Bacteria Few H (None) /hpf Hyaline Casts 3 H (0-2) /lpf 02/24/23 02/25/23 02/25/23 Range/Units 23:29 04:52 04:52 RBC 2.96 L (4.30-5.90) m/uL Hgb 9.6 L (13.0-17.5) gm/dL Hct 31.1 L (39.0-53.0) % MCV 105.0 H (80.0-100.0) fL MCHC 30.8 L (31.0-37.0) g/dL RDW 16.0 H (11.5-15.5) % Lymphocytes # 0.7 L (1.0-4.8) k/uL PT (9.0-12.0) sec INR (<1.2) APTT (22.0-30.0) sec Potassium 5.8 H 6.8 H* (3.5-5.1) mmol/L Chloride 111 H (98-107) mmol/L BUN 61 H (9-20) mg/dL Creatinine 2.32 H (0.66-1.25) mg/dL Glucose 70 L (74-99) mg/dL POC Glucose (mg/dL) (70-110) mg/dL Calcium 7.6 L (8.4-10.2) mg/dL Magnesium (1.6-2.3) mg/dL Total Protein (6.3-8.2) g/dL Albumin (3.5-5.0) g/dL Urine Protein (Negative) Urine Glucose (UA) (Negative) Urine Ketones (Negative) Urine Blood (Negative) Ur Leukocyte Esterase (Negative) Urine WBC (0-5) /hpf Urine Bacteria (None) /hpf Hyaline Casts (0-2) /lpf 02/25/23 02/25/23 02/25/23 Range/Units 08:09 09:35 11:42 RBC (4.30-5.90) m/uL Hgb (13.0-17.5) gm/dL Hct (39.0-53.0) % MCV (80.0-100.0) fL MCHC (31.0-37.0) g/dL RDW (11.5-15.5) % Lymphocytes # (1.0-4.8) k/uL PT (9.0-12.0) sec INR (<1.2) APTT (22.0-30.0) sec Potassium (3.5-5.1) mmol/L Chloride (98-107) mmol/L BUN (9-20) mg/dL Creatinine (0.66-1.25) mg/dL Glucose (74-99) mg/dL POC Glucose (mg/dL) 115 H 133 H 150 H (70-110) mg/dL Calcium (8.4-10.2) mg/dL Magnesium (1.6-2.3) mg/dL Total Protein (6.3-8.2) g/dL Albumin (3.5-5.0) g/dL Urine Protein (Negative) Urine Glucose (UA) (Negative) Urine Ketones (Negative) Urine Blood (Negative) Ur Leukocyte Esterase (Negative) Urine WBC (0-5) /hpf Urine Bacteria (None) /hpf Hyaline Casts (0-2) /lpf
[2023-02-25 12:30] LABS: INR 1.4 (<1.2); Partial Thromboplastin Time 35.4 sec (22.0-30.0)
[2023-02-25] MEDS ORDERED: INSULIN REGULAR 100 UNIT/ML VIAL (IV) IV STA (12:37)
[2023-02-25] MEDS ORDERED: DEXTROSE 50% SYRINGE 50 ML IVP ONE ×2 (12:38→14:00)
[2023-02-25] MEDS ORDERED: CALCIUM GLUCONATE IN NACL 2 GM in SALINE 1 100ML.BAG IVPB STA (12:38)
[2023-02-25] MEDS: FUROSEMIDE 100 MG in SODIUM CHLORIDE 0.9% 90 ML IV SCH ×2 (12:53→22:10)
[2023-02-25 12:56] LABS: ALT 26 U/L (4-49); AST 57 U/L (17-59); African American GFR (CKD) 31 (>60 ml/min/1.73 sqM); Albumin 1.8 g/dL (3.5-5.0); Alkaline Phosphatase 78 U/L (38-126); Anion Gap 4 mmol/L; Blood Urea Nitrogen 62 mg/dL (9-20); Calcium 7.3 mg/dL (8.4-10.2); Carbon Dioxide 22 mmol/L (22-30); Chloride 112 mmol/L (98-107); Glucose 134 mg/dL (74-99); Non-African American GFR(CKD) 26 (>60 ml/min/1.73 sqM); Sodium 138 mmol/L (137-145); Total Bilirubin 0.3 mg/dL (0.2-1.3)
[2023-02-25 13:02] LABS: Potassium 6.2 mmol/L (3.5-5.1)
[2023-02-25 13:06] LABS: Creatine Kinase MB 17.4 ng/mL (0.0-3.4); Troponin I <0.012 ng/mL (0.000-0.034)
[2023-02-25] MEDS ORDERED: SODIUM ZIRCONIUM CYCLOSILICATE 10 GM PACKET PO STA (13:20)
[2023-02-25] MEDS ORDERED: CALCIUM GLUCONATE IN NACL 2 GM in SALINE 1 100ML.BAG IVPB ONE (14:00)
[2023-02-25 14:09] LABS: Glucose,Whole Blood 119 mg/dL (70-110)
[2023-02-25] MEDS ORDERED: SODIUM BICARB 8.4% 50 ML SYR (1 MEQ/ML) IV STA ×2 (14:59→15:00)
--- NOTE | 2023-02-25 15:25 | US ---
EXAMINATION TYPE: US abd limited kidneys/bladder DATE OF EXAM: 02/25/2023 COMPARISON: NONE CLINICAL INDICATION: Male, 67 years old with history of possible hydronephrosis; possible hydro TECHNIQUE: Multiple sonographic images of the right upper quadrant, bilateral kidneys, and bladder ar e obtained. FINDINGS: EXAM MEASUREMENTS: Liver Length: 17.1 cm Gallbladder Wall: obscured by bowel CBD: 0.94 cm Right Kidney: 10.3x6.3x6.3 cm Left Kidney: 11.0x8.7x6.6 cm Pancreas: Obscured by bowel gas Liver: enlarged, partially obscured by bowel Gallbladder: Obscured by overlying bowel gas CBD: enlarged Right Kidney: wnl Left Kidney: hypoechoic area measured: 1.6x1.5x2.2cm Bladder: palafox catheter SPEECH LANGUAGE PATHOLOGIST TRAVEL NOTES: exam limited due to pitting edema, body habitus, patient inability to sustain deep breaths, or move positions, and bowel gas. There is a tiny amount 3 fluid adjacent to the liver. IMPRESSION: 1. The CBD is dilated measuring 9 mm. Gallbladder could not be seen due to overlying bowel gas. Corre late for possible biliary obstruction. If the patient is postcholecystectomy and this would be within normal limits. Correlate with the surgical history given the limitation of this exam. 2. No hydronephrosis. There is a hypoechoic indeterminate nodule measuring 2.2 cm left kidney. Consid er follow-up CT scan of the abdomen.
[2023-02-25] MEDS: ALBUMIN HUMAN 25% 50 ML in EMPTY BAG 1 BAG IVPB SCH ×2 (16:19→17:35)
[2023-02-25 16:40] LABS: Glucose,Whole Blood 85 mg/dL (70-110)
[2023-02-25] MEDS ORDERED: LIDOCAINE 1% INJ 10MG/ML (20 ML MDV) ONE (16:58)
[2023-02-25] MEDS ORDERED: HEPARIN SODIUM 1,000 UN/ML (10ML VL) MISCELLANE ONE (17:00)
[2023-02-25 17:03] LABS: Albumin 1.8 d/dL (3.8-4.9)
--- NOTE | 2023-02-25 18:01 | P.GSCN ---
History of Present Illness History of present illness: 67-year-old gentleman patient was seen and intensive care unit patient has a high BUN/creatinine potassium is 6.8 consulted for placement of urgent dialysis catheter. Medical history history of diabetes, hypertension, A. fib on the [place] patient also has history of shortness of breath with swelling of the both lower extremity. Chest examination chest is filled crackles the lung bases first and second sound present Abdomen is protuberant no peritoneal sign noted patient has a bilateral swelling of the extremities lower extremity femorals are 1+ Plan is placement of dialysis catheter left femoral approach Past Medical History Past Medical History: Heart Failure, Diabetes Mellitus, Deep Vein Thrombosis (DVT), Hypertension, Osteoarthritis (OA), Prostate Disorder Additional Past Medical History / Comment(s): back pain, MRI scheduled for 10/28/22 History of Any Multi-Drug Resistant Organisms: None Reported Past Surgical History: Orthopedic Surgery Additional Past Surgical History / Comment(s): bilateral total hip replacement. 200705-12-16 TOTAL RIGHT HIP REPLACEMENT. RT KNEE SX. RT SHOULDER SX. COLONOSCOPY Past Anesthesia/Blood Transfusion Reactions: No Reported Reaction Past Psychological History: No Psychological Hx Reported Smoking Status: Former smoker Past Alcohol Use History: None Reported Past Drug Use History: None Reported - Past Family History Mother Family Medical History: Diabetes Mellitus Father Additional Family Medical History / Comment(s): FROM SPINAL MENNINGITIS Medications and Allergies Home Medications Medication Instructions Recorded Confirmed Type atenoloL [Tenormin] 25 mg PO BID 05/08/16 02/24/23 History Alpha Lipoic Acid 1,200 mg PO BID 10/20/22 02/24/23 History Aspirin EC [Ecotrin Low Dose] 81 mg PO DAILY 10/20/22 02/24/23 History Atorvastatin [Lipitor] 40 mg PO DAILY 10/20/22 02/24/23 History Cholecalciferol [Vitamin D3 (125 125 mcg PO DAILY 10/20/22 02/24/23 History Mcg = 5000 Iu)] Magnesium 250 mg PO BID 10/20/22 02/24/23 History Tamsulosin [Flomax] 0.4 mg PO DAILY 10/20/22 02/24/23 History Calcium Carbonate [Tums] 500 mg PO TID PRN tab 10/22/22 02/24/23 Rx Rivaroxaban [Xarelto] 20 mg PO DAILY 30 Days #30 tab 10/22/22 02/24/23 Rx Furosemide [Lasix] 20 mg PO BID 02/24/23 02/24/23 History Vitamin B Complex 1 cap PO DAILY 02/24/23 02/24/23 History lisinopriL [Prinivil] 20 mg PO DAILY 02/24/23 02/24/23 History metFORMIN HCL ER [Glucophage XR] 250 mg PO DAILY 02/24/23 02/24/23 History Allergies Allergy/AdvReac Type Severity Reaction Status Date / Time Penicillins Allergy Rash/Hives Verified 02/24/23 19:24 ibuprofen AdvReac BURING Verified 02/24/23 19:24 SENSATION IN ARMS Surgical - Exam Vital Signs Pulse Resp BP Pulse Ox 65 24 101/49 97 02/24/23 14:12 02/24/23 14:12 02/24/23 14:12 02/24/23 14:12 Results - Labs 02/25/23 04:52 02/25/23 11:30 Abnormal Lab Results - Last 24 Hours (Table) 02/24/23 02/24/23 02/24/23 Range/Units 20:36 23:18 23:29 RBC 2.85 L 2.75 L (4.30-5.90) m/uL Hgb 9.1 L 8.7 L (13.0-17.5) gm/dL Hct 29.5 L 29.0 L (39.0-53.0) % MCV 103.6 H 105.5 H (80.0-100.0) fL MCHC 30.7 L 29.9 L (31.0-37.0) g/dL RDW 16.2 H 15.8 H (11.5-15.5) % Lymphocytes # 0.9 L (1.0-4.8) k/uL PT (9.0-12.0) sec INR (<1.2) APTT (22.0-30.0) sec Potassium (3.5-5.1) mmol/L Chloride (98-107) mmol/L BUN (9-20) mg/dL Creatinine (0.66-1.25) mg/dL Glucose (74-99) mg/dL POC Glucose (mg/dL) (70-110) mg/dL Calcium (8.4-10.2) mg/dL Magnesium (1.6-2.3) mg/dL Creatine Kinase (55-170) U/L CK-MB (CK-2) (0.0-3.4) ng/mL Total Protein (6.3-8.2) g/dL Total Protein (PEP) (6.2-8.2) d/dL Albumin (3.5-5.0) g/dL Albumin (PEP) (3.8-4.9) d/dL Vitamin B12 (200.0-944.0) pg/mL Urine Protein 3+ H (Negative) Urine Glucose (UA) Trace H (Negative) Urine Ketones Trace H (Negative) Urine Blood Large H (Negative) Ur Leukocyte Esterase Trace H (Negative) Urine WBC 10 H (0-5) /hpf Urine Bacteria Few H (None) /hpf Hyaline Casts 3 H (0-2) /lpf IgG (700.0-1600.0) mg/dL 02/24/23 02/25/23 02/25/23 Range/Units 23:29 04:52 04:52 RBC 2.96 L (4.30-5.90) m/uL Hgb 9.6 L (13.0-17.5) gm/dL Hct 31.1 L (39.0-53.0) % MCV 105.0 H (80.0-100.0) fL MCHC 30.8 L (31.0-37.0) g/dL RDW 16.0 H (11.5-15.5) % Lymphocytes # 0.7 L (1.0-4.8) k/uL PT (9.0-12.0) sec INR (<1.2) APTT (22.0-30.0) sec Potassium 5.8 H 6.8 H* (3.5-5.1) mmol/L Chloride 111 H (98-107) mmol/L BUN 61 H (9-20) mg/dL Creatinine 2.32 H (0.66-1.25) mg/dL Glucose 70 L (74-99) mg/dL POC Glucose (mg/dL) (70-110) mg/dL Calcium 7.6 L (8.4-10.2) mg/dL Magnesium (1.6-2.3) mg/dL Creatine Kinase (55-170) U/L CK-MB (CK-2) (0.0-3.4) ng/mL Total Protein (6.3-8.2) g/dL Total Protein (PEP) (6.2-8.2) d/dL Albumin (3.5-5.0) g/dL Albumin (PEP) (3.8-4.9) d/dL Vitamin B12 (200.0-944.0) pg/mL Urine Protein (Negative) Urine Glucose (UA) (Negative) Urine Ketones (Negative) Urine Blood (Negative) Ur Leukocyte Esterase (Negative) Urine WBC (0-5) /hpf Urine Bacteria (None) /hpf Hyaline Casts (0-2) /lpf IgG (700.0-1600.0) mg/dL 02/25/23 02/25/23 02/25/23 Range/Units 08:09 09:35 11:30 RBC (4.30-5.90) m/uL Hgb (13.0-17.5) gm/dL Hct (39.0-53.0) % MCV (80.0-100.0) fL MCHC (31.0-37.0) g/dL RDW (11.5-15.5) % Lymphocytes # (1.0-4.8) k/uL PT (9.0-12.0) sec INR (<1.2) APTT (22.0-30.0) sec Potassium (3.5-5.1) mmol/L Chloride (98-107) mmol/L BUN (9-20) mg/dL Creatinine (0.66-1.25) mg/dL Glucose (74-99) mg/dL POC Glucose (mg/dL) 115 H 133 H (70-110) mg/dL Calcium (8.4-10.2) mg/dL Magnesium (1.6-2.3) mg/dL Creatine Kinase (55-170) U/L CK-MB (CK-2) 17.4 H (0.0-3.4) ng/mL Total Protein (6.3-8.2) g/dL Total Protein (PEP) (6.2-8.2) d/dL Albumin (3.5-5.0) g/dL Albumin (PEP) (3.8-4.9) d/dL Vitamin B12 (200.0-944.0) pg/mL Urine Protein (Negative) Urine Glucose (UA) (Negative) Urine Ketones (Negative) Urine Blood (Negative) Ur Leukocyte Esterase (Negative) Urine WBC (0-5) /hpf Urine Bacteria (None) /hpf Hyaline Casts (0-2) /lpf IgG (700.0-1600.0) mg/dL 02/25/23 02/25/23 02/25/23 Range/Units 11:30 11:30 11:30 RBC (4.30-5.90) m/uL Hgb (13.0-17.5) gm/dL Hct (39.0-53.0) % MCV (80.0-100.0) fL MCHC (31.0-37.0) g/dL RDW (11.5-15.5) % Lymphocytes # (1.0-4.8) k/uL PT (9.0-12.0) sec INR (<1.2) APTT (22.0-30.0) sec Potassium 6.2 H* (3.5-5.1) mmol/L Chloride 112 H (98-107) mmol/L BUN 62 H (9-20) mg/dL Creatinine 2.41 H (0.66-1.25) mg/dL Glucose 134 H (74-99) mg/dL POC Glucose (mg/dL) (70-110) mg/dL Calcium 7.3 L (8.4-10.2) mg/dL Magnesium (1.6-2.3) mg/dL Creatine Kinase (55-170) U/L CK-MB (CK-2) (0.0-3.4) ng/mL Total Protein 4.0 L (6.3-8.2) g/dL Total Protein (PEP) 4.0 L (6.2-8.2) d/dL Albumin 1.8 L (3.5-5.0) g/dL Albumin (PEP) 1.8 L (3.8-4.9) d/dL Vitamin B12 (200.0-944.0) pg/mL Urine Protein (Negative) Urine Glucose (UA) (Negative) Urine Ketones (Negative) Urine Blood (Negative) Ur Leukocyte Esterase (Negative) Urine WBC (0-5) /hpf Urine Bacteria (None) /hpf Hyaline Casts (0-2) /lpf IgG 420.0 L (700.0-1600.0) mg/dL 02/25/23 02/25/23 02/25/23 Range/Units 11:30 11:30 11:30 RBC (4.30-5.90) m/uL Hgb (13.0-17.5) gm/dL Hct (39.0-53.0) % MCV (80.0-100.0) fL MCHC (31.0-37.0) g/dL RDW (11.5-15.5) % Lymphocytes # (1.0-4.8) k/uL PT 14.0 H (9.0-12.0) sec INR 1.4 H (<1.2) APTT 35.4 H (22.0-30.0) sec Potassium (3.5-5.1) mmol/L Chloride (98-107) mmol/L BUN (9-20) mg/dL Creatinine (0.66-1.25) mg/dL Glucose (74-99) mg/dL POC Glucose (mg/dL) (70-110) mg/dL Calcium (8.4-10.2) mg/dL Magnesium 3.7 H (1.6-2.3) mg/dL Creatine Kinase (55-170) U/L CK-MB (CK-2) (0.0-3.4) ng/mL Total Protein (6.3-8.2) g/dL Total Protein (PEP) (6.2-8.2) d/dL Albumin (3.5-5.0) g/dL Albumin (PEP) (3.8-4.9) d/dL Vitamin B12 1719.0 H (200.0-944.0) pg/mL Urine Protein (Negative) Urine Glucose (UA) (Negative) Urine Ketones (Negative) Urine Blood (Negative) Ur Leukocyte Esterase (Negative) Urine WBC (0-5) /hpf Urine Bacteria (None) /hpf Hyaline Casts (0-2) /lpf IgG (700.0-1600.0) mg/dL 02/25/23 02/25/23 02/25/23 Range/Units 11:30 11:42 14:07 RBC (4.30-5.90) m/uL Hgb (13.0-17.5) gm/dL Hct (39.0-53.0) % MCV (80.0-100.0) fL MCHC (31.0-37.0) g/dL RDW (11.5-15.5) % Lymphocytes # (1.0-4.8) k/uL PT (9.0-12.0) sec INR (<1.2) APTT (22.0-30.0) sec Potassium (3.5-5.1) mmol/L Chloride (98-107) mmol/L BUN (9-20) mg/dL Creatinine (0.66-1.25) mg/dL Glucose (74-99) mg/dL POC Glucose (mg/dL) 150 H 119 H (70-110) mg/dL Calcium (8.4-10.2) mg/dL Magnesium (1.6-2.3) mg/dL Creatine Kinase 823 H (55-170) U/L CK-MB (CK-2) (0.0-3.4) ng/mL Total Protein (6.3-8.2) g/dL Total Protein (PEP) (6.2-8.2) d/dL Albumin (3.5-5.0) g/dL Albumin (PEP) (3.8-4.9) d/dL Vitamin B12 (200.0-944.0) pg/mL Urine Protein (Negative) Urine Glucose (UA) (Negative) Urine Ketones (Negative) Urine Blood (Negative) Ur Leukocyte Esterase (Negative) Urine WBC (0-5) /hpf Urine Bacteria (None) /hpf Hyaline Casts (0-2) /lpf IgG (700.0-1600.0) mg/dL Diabetes panel 02/24/23 02/25/23 02/25/23 Range/Units 23:29 04:52 11:30 Sodium 139 138 (137-145) mmol/L Potassium 5.8 H 6.8 H* 6.2 H* (3.5-5.1) mmol/L Chloride 111 H 112 H (98-107) mmol/L Carbon Dioxide 25 22 (22-30) mmol/L BUN 61 H 62 H (9-20) mg/dL Creatinine 2.32 H 2.41 H (0.66-1.25) mg/dL Glucose 70 L 134 H (74-99) mg/dL Calcium 7.6 L 7.3 L (8.4-10.2) mg/dL AST 57 (17-59) U/L ALT 26 (4-49) U/L Alkaline Phosphatase 78 (38-126) U/L Total Protein 4.0 L (6.3-8.2) g/dL Albumin 1.8 L (3.5-5.0) g/dL Calcium panel 02/25/23 02/25/23 Range/Units 04:52 11:30 Calcium 7.6 L 7.3 L (8.4-10.2) mg/dL Albumin 1.8 L (3.5-5.0) g/dL Pituitary panel 02/24/23 02/25/23 02/25/23 Range/Units 23:29 04:52 11:30 Sodium 139 138 (137-145) mmol/L Potassium 5.8 H 6.8 H* 6.2 H* (3.5-5.1) mmol/L Chloride 111 H 112 H (98-107) mmol/L Carbon Dioxide 25 22 (22-30) mmol/L BUN 61 H 62 H (9-20) mg/dL Creatinine 2.32 H 2.41 H (0.66-1.25) mg/dL Glucose 70 L 134 H (74-99) mg/dL Calcium 7.6 L 7.3 L (8.4-10.2) mg/dL Adrenal panel 02/24/23 02/25/23 02/25/23 Range/Units 23:29 04:52 11:30 Sodium 139 138 (137-145) mmol/L Potassium 5.8 H 6.8 H* 6.2 H* (3.5-5.1) mmol/L Chloride 111 H 112 H (98-107) mmol/L Carbon Dioxide 25 22 (22-30) mmol/L BUN 61 H 62 H (9-20) mg/dL Creatinine 2.32 H 2.41 H (0.66-1.25) mg/dL Glucose 70 L 134 H (74-99) mg/dL Calcium 7.6 L 7.3 L (8.4-10.2) mg/dL Total Bilirubin 0.3 (0.2-1.3) mg/dL AST 57 (17-59) U/L ALT 26 (4-49) U/L Alkaline Phosphatase 78 (38-126) U/L Total Protein 4.0 L (6.3-8.2) g/dL Albumin 1.8 L (3.5-5.0) g/dL
--- NOTE | 2023-02-25 18:04 | P.PCN ---
Description of Procedure: Diagnoses is acute chronic renal failure with high potassium Procedure ultrasound-guided 20 same dialysis cath left femoral approach Left groin was prepped and draped applied sterile manner 1% lidocaine for an infected. Ultrasound-guided micropuncture introducer left femoral vein micropuncture guidewire was passed and 4-Bahrain[place] dilator advanced top the guidewire after that we passed a regular guidewire without any resistance dilator dilator Top the guidewire then we placed 20 same dialysis catheter flushed with heparin saline and Hep-Lock secured with 3-0 nylon dressing applied patient tolerated the procedure well
[2023-02-25 19:04] LABS: ALT 30 U/L (4-49); AST 76 U/L (17-59); African American GFR (CKD) 31 (>60 ml/min/1.73 sqM); Albumin 2.1 g/dL (3.5-5.0); Alkaline Phosphatase 86 U/L (38-126); Anion Gap 4 mmol/L; Blood Urea Nitrogen 63 mg/dL (9-20); Calcium 8.3 mg/dL (8.4-10.2); Carbon Dioxide 24 mmol/L (22-30); Chloride 112 mmol/L (98-107); Glucose 78 mg/dL (74-99); Non-African American GFR(CKD) 27 (>60 ml/min/1.73 sqM); Sodium 140 mmol/L (137-145); Total Bilirubin 0.3 mg/dL (0.2-1.3); Total Protein 4.5 g/dL (6.3-8.2)
[2023-02-25 20:35] LABS: Glucose,Whole Blood 117 mg/dL (70-110)
[2023-02-25] MEDS: NOREPINEPHRINE 32 MG in SODIUM CHLORIDE 0.9% 218 ML IV SCH (21:49)
--- NOTE | 2023-02-25 22:07 | CONS ---
CONSULTATION HISTORY OF PRESENT ILLNESS: Kamran is a 67-year-old gentleman with history of diastolic heart failure, renal insufficiency, hypertension, diabetes, and DVT who was in our office for a stress test, was found to be profoundly hypotensive with generalized anasarca. The stress test was canceled and he was sent to the ER, from where he got admitted. He denies any chest pain, but has shortness of breath, bilateral leg edema and generalized anasarca. He remains hypotensive and is currently on pressors and he is being started on Lasix drip. The patient has had respiratory insufficiency. He has renal insufficiency with a creatinine of around 2. EKG shows atrial fibrillation with controlled ventricular rate. The patient takes Xarelto at home along with Tenormin, Glucophage, Lasix, Lipitor. ALLERGY: Ibuprofen and penicillin. FAMILY HISTORY: Negative for premature coronary artery disease. SOCIAL HISTORY: Negative for current smoking, EtOH abuse or drug abuse. REVIEW OF SYSTEMS: HEENT: Unremarkable. CARDIAC: As described above. RESPIRATORY: As described above. GI: Negative. GENITOURINARY: Negative. ALLERGY/IMMUNOLOGY: Negative. SKIN: Significant for bilateral leg edema with weeping. The rest of the system review has been performed and is not particularly relevant. PHYSICAL EXAMINATION: VITAL SIGNS: On exam, heart rate is 60 beats per minute, blood pressure is 110/30, respiratory rate is 18, afebrile, O2 saturation is 92% on 4 L. NECK: There is no jugular venous distention. CHEST: Reveals diminished air entry at the bases. HEART: Reveals first and second heart sounds. Irregular rhythm and a systolic murmur at the apex. ABDOMEN: Soft. EXTREMITIES: Exam of extremities reveal bilateral pitting edema. LABORATORY DATA: Labs show that the hemoglobin is 9.6, potassium is 6.8, BUN is 61, creatinine is 2.3. ASSESSMENT: 1. Acute exacerbation of chronic diastolic heart failure. 2. Acute renal failure. 3. Anemia. 4. Hypotension. PLAN: The patient will be treated with Lasix drip, Levophed. Continue the Xarelto. Obtain a 2D echo to evaluate the LV function. MMODL / IJN: [id number] /
[2023-02-26 00:02] LABS: Ionized Calcium 4.6 mg/dL (4.5-5.3)
[2023-02-26 00:17] LABS: African American GFR (CKD) 43 (>60 ml/min/1.73 sqM); Anion Gap 1 mmol/L; Blood Urea Nitrogen 42 mg/dL (9-20); Calcium 7.3 mg/dL (8.4-10.2); Carbon Dioxide 28 mmol/L (22-30); Chloride 107 mmol/L (98-107); Glucose 130 mg/dL (74-99); Non-African American GFR(CKD) 37 (>60 ml/min/1.73 sqM); Potassium 4.9 mmol/L (3.5-5.1); Sodium 136 mmol/L (137-145)
[2023-02-26 03:10] LABS: Hepatitis B Surface AB- Quant 3.5 mIU/mL
[2023-02-26 03:38] LABS: Hepatitis B Surface Antigen Nonreactive
[2023-02-26 04:35] LABS: Anisocytosis Slight; Basophils % (A) 0 %; Eosinophils # (A) 0.2 k/uL (0-0.7); Eosinophils % (A) 3 %; HCT 27.8 % (39.0-53.0); HGB 8.7 gm/dL (13.0-17.5); Hypochromasia Marked; Lymphocytes # (A) 2.2 k/uL (1.0-4.8); Lymphocytes % (A) 27 %; MCH 32.3 pg (25.0-35.0); MCHC 31.1 g/dL (31.0-37.0); MCV 103.8 fL (80.0-100.0); Macrocytosis Moderate; Mean Platelet Volume 7.3; Monocytes # (A) 0.4 k/uL (0-1.0); Monocytes % (A) 5 %; Neutrophils # (A) 5.1 k/uL (1.3-7.7); Neutrophils % (A) 63 %; Platelet Count 229 k/uL (150-450); RBC 2.68 m/uL (4.30-5.90); RDW 16.3 % (11.5-15.5); WBC 8.1 k/uL (3.8-10.6)
[2023-02-26 05:34] LABS: African American GFR (CKD) 38 (>60 ml/min/1.73 sqM); Anion Gap 3 mmol/L; Blood Urea Nitrogen 44 mg/dL (9-20); Calcium 7.2 mg/dL (8.4-10.2); Carbon Dioxide 28 mmol/L (22-30); Chloride 108 mmol/L (98-107); Glucose 145 mg/dL (74-99); Non-African American GFR(CKD) 33 (>60 ml/min/1.73 sqM); Potassium 5.1 mmol/L (3.5-5.1); Sodium 139 mmol/L (137-145)
[2023-02-26 06:47] LABS: Glucose,Whole Blood 143 mg/dL (70-110)
[2023-02-26] MEDS: MIDODRINE 5 MG TAB PO SCH ×3 (07:04→16:55)
[2023-02-26] MEDS: FUROSEMIDE 100 MG in SODIUM CHLORIDE 0.9% 90 ML IV SCH ×2 (07:05→18:35)
--- NOTE | 2023-02-26 07:42 | CA ---
Transthoracic Echo Report Name: Kamran Brandon Age: 67 Gender: M : 1955 Exam Date: 02/25/2023 13:44 Exam Location: [facility] Ht (in): 69 Wt (lb): 265 Ordering Physician: Haydee Guadalupe MD Attending/Referring Phys: Automotive Brake Specialist Jessica Sheridan RDCS Procedure CPT: Indications: lv fxn Cardiac Hx: Technical Quality: Technically difficult study Contrast 1: Lumason Total Dose (mL): 3 Contrast 2: Total Dose (mL): MEASUREMENTS (Male / Female) Normal Values 2D ECHO LV Diastolic Diameter PLAX 4.0 cm 4.2 - 5.9 / 3.9 - 5.3 cm LV Systolic Diameter PLAX 2.7 cm IVS Diastolic Thickness 1.3 cm 0.6 - 1.0 / 0.6 - 0.9 cm LVPW Diastolic Thickness 1.2 cm 0.6 - 1.0 / 0.6 - 0.9 cm LV Relative Wall Thickness 0.6 RV Internal Dim ED PLAX 3.4 cm LA Systolic Diameter LX 3.5 cm 3.0 - 4.0 / 2.7 - 3.8 cm LA Volume 62.5 cm??? 18 - 58 / 22 - 52 cm??? M-MODE Aortic Root Diameter MM 3.0 cm MV E Point Septal Separation 0.7 cm AV Cusp Separation MM 1.6 cm DOPPLER AV Peak Velocity 169.1 cm/s AV Peak Gradient 11.4 mmHg MV Area PHT 3.7 cm??? Mitral E Point Velocity 130.8 cm/s Mitral A Point Velocity 56.4 cm/s Mitral E to A Ratio 2.3 MV Deceleration Time 206.2 ms MV E' Velocity 8.2 cm/s Mitral E to MV E' Ratio 16.0 TR Peak Velocity 244.9 cm/s TR Peak Gradient 24.0 mmHg Right Ventricular Systolic Press 39.0 mmHg FINDINGS Left Ventricle Left ventricular ejection fraction is estimated at 55-60 %. Normal left ventricular wall motion. Mildly increased left ventricular wall thickness. Right Ventricle Mild right ventricular dilatation. Mild pulmonary hypertension. Right Atrium Right atrium not well visualized. Left Atrium Mildly increased left atrial volume. Mitral Valve Structurally normal mitral valve. Mitral annular calcification. Mild mitral regurgitation. Aortic Valve Aortic valve not well visualized. No aortic valve stenosis or regurgitation. Tricuspid Valve Structurally normal tricuspid valve. Mild tricuspid regurgitation. Pulmonic Valve Pulmonic valve not well visualized. Pericardium Normal pericardium. No pericardial effusion. Aorta Normal size aortic root and proximal ascending aorta. CONCLUSIONS Technically difficult study. Lumason ECHO contrast used for improved visualization of the endocardial borders (inadequate visualization of two or more contiguous segments). Normal left ventricle size and systolic function Mild mitral and tricuspid regurgitation Previewed by: Dr. Kristina Castillo MD (Electronically Signed) Final Date: 26 February 2023 07:42
--- NOTE | 2023-02-26 07:56 | XR ---
EXAMINATION TYPE: XR chest 1V portable DATE OF EXAM: 02/26/2023 Comparison: 02/25/2023 Clinical History: 67-year-old male dyspnea, shortness of breath Findings: Left subclavian CVC tip at the upper to mid SVC level. Heart margins are obscured by adjacent pleural parenchymal opacity. Ongoing moderate right and [id number] left effusions with underlying opa city and interstitial densities. Impression: Ongoing moderate right and [id number] left pleural effusions with adjacent atelectasis and/or consolidation. Background mild pulmonary vascular congestion also similar.
[2023-02-26] MEDS: PANTOPRAZOLE 40 MG/10 ML VIAL IVP SCH (08:35)
[2023-02-26] MEDS: ATORVASTATIN 40 MG TAB PO SCH (08:35)
[2023-02-26] MEDS: ASPIRIN 81 MG PO SCH (08:35)
[2023-02-26] MEDS: RIVAROXABAN 20 MG TAB PO SCH (08:35)
--- NOTE | 2023-02-26 09:29 | P.CONS ---
History of Present Illness - Reason for Consult Consult date: 02/26/23 wound care - History of Present Illness This is a 67-year-old male with past medical history significant for heart failure, diabetes, deep vein thrombosis, hypertension bullous pemphigold, and a bph. Patient being seen in the ICU for a stage II pressure ulcer to the coccyx and a nonhealing ulceration to the flank area. Stage II pressure ulcer measures approximate 2.2 x 2.0 x 0.2 cm with Slough and nonviable tissue present wound edges are attached to the wound base no tunneling or undermining noted. There is granulation seen within the wound bed. Patient has a nonhealing ulceration Limited to skin breakdown with granulation noted. Family states that the ulcerations have a buttocks has been there for approximately 2-3 weeks. They have not been applying any dressings to the site. Review Of Systems: Constitutional: No fever, no chills, no night sweats. No weight change. No weakness, fatigue or lethargy. No daytime sleepiness. Integumentary:reports wounds, no lesions. No rash or pruritus. No unusual br uising. No change in hair or nails. Physical exam: General Appearance: Alert, cooperative, no distress, appears stated age. Skin: See HPI all other Skin color, texture, tugor normal, no rashes or lesions. Neurologic: Alert oriented x3 Assessment: 1. Stage II pressure ulcer sacrum 2. Nonhealing ulceration Limited to skin breakdown flank 3. Diabetes with skin ulceration 4. bullous pemphigold Plan: 1.Coccyx: Apply honey gel and border foam. Flank: Apply triad to the site. Turn patient every 2 hours and as needed. Thank you for the consultation any questions to contact the wound care center DNP note has been reviewed and discussed with Dr. Maynard and the impression and plan of care has been directed as dictated. Past Medical History Past Medical History: Heart Failure, Diabetes Mellitus, Deep Vein Thrombosis (DVT), Hypertension, Osteoarthritis (OA), Prostate Disorder Additional Past Medical History / Comment(s): back pain, MRI scheduled for 10/28/22 History of Any Multi-Drug Resistant Organisms: None Reported Past Surgical History: Orthopedic Surgery Additional Past Surgical History / Comment(s): bilateral total hip replacement. 2007 .05-12-16 TOTAL RIGHT HIP REPLACEMENT. RT KNEE SX. RT SHOULDER SX. COLONOSCOPY Past Anesthesia/Blood Transfusion Reactions: No Reported Reaction Past Psychological History: No Psychological Hx Reported Smoking Status: Former smoker Past Alcohol Use History: None Reported Past Drug Use History: None Reported - Past Family History Mother Family Medical History: Diabetes Mellitus Father Additional Family Medical History / Comment(s): FROM SPINAL MENNINGITIS Medications and Allergies Home Medications Medication Instructions Recorded Confirmed Type atenoloL [Tenormin] 25 mg PO BID 05/08/16 02/24/23 History Alpha Lipoic Acid 1,200 mg PO BID 10/20/22 02/24/23 History Aspirin EC [Ecotrin Low Dose] 81 mg PO DAILY 10/20/22 02/24/23 History Atorvastatin [Lipitor] 40 mg PO DAILY 10/20/22 02/24/23 History Cholecalciferol [Vitamin D3 (125 125 mcg PO DAILY 10/20/22 02/24/23 History Mcg = 5000 Iu)] Magnesium 250 mg PO BID 10/20/22 02/24/23 History Tamsulosin [Flomax] 0.4 mg PO DAILY 10/20/22 02/24/23 History Calcium Carbonate [Tums] 500 mg PO TID PRN tab 10/22/22 02/24/23 Rx Rivaroxaban [Xarelto] 20 mg PO DAILY 30 Days #30 tab 10/22/22 02/24/23 Rx Furosemide [Lasix] 20 mg PO BID 02/24/23 02/24/23 History Vitamin B Complex 1 cap PO DAILY 02/24/23 02/24/23 History lisinopriL [Prinivil] 20 mg PO DAILY 02/24/23 02/24/23 History metFORMIN HCL ER [Glucophage XR] 250 mg PO DAILY 02/24/23 02/24/23 History Allergies Allergy/AdvReac Type Severity Reaction Status Date / Time Penicillins Allergy Rash/Hives Verified 02/24/23 19:24 ibuprofen AdvReac BURING Verified 02/24/23 19:24 SENSATION IN ARMS Physical Exam Vitals: Vital Signs Temp Pulse Pulse Resp BP BP Pulse Ox 02/26/23 09:00 54 L 14 97 02/26/23 08:45 62 18 98 02/26/23 08:30 65 20 98 02/26/23 08:15 66 19 97 02/26/23 08:00 66 17 98 02/26/23 07:45 66 17 98 02/26/23 07:30 67 22 90 L 02/26/23 07:15 67 22 88 L 02/26/23 07:00 65 18 99 02/26/23 06:45 66 24 86 L 02/26/23 06:30 67 20 99 02/26/23 06:15 62 36 H 99 02/26/23 06:00 65 20 98 02/26/23 05:45 64 18 98 02/26/23 05:30 76 25 H 98 02/26/23 05:15 67 20 98 02/26/23 05:00 65 19 98 02/26/23 04:45 64 21 99 02/26/23 04:30 68 29 H 97 02/26/23 04:15 65 21 98 02/26/23 04:00 98.2 F 66 20 97 02/26/23 03:45 67 18 98 02/26/23 03:30 63 19 98 02/26/23 03:15 66 20 98 02/26/23 03:00 62 14 98 02/26/23 02:45 65 18 90 L 02/26/23 02:30 56 L 18 93 L 02/26/23 02:15 58 L 18 94 L 02/26/23 02:00 62 21 92 L 02/26/23 01:45 67 24 92 L 02/26/23 01:30 62 17 93 L 02/26/23 01:15 59 L 16 93 L 02/26/23 01:00 61 17 92 L 02/26/23 00:45 65 17 92 L 02/26/23 00:30 69 18 90 L 02/26/23 00:15 44 L 20 94 L 02/26/23 00:00 98.4 F 49 L 22 94 L 02/25/23 23:45 86 15 92 L 02/25/23 23:30 52 L 18 93 L 02/25/23 23:15 43 L 15 94 L 02/25/23 23:00 56 L 19 91 L 02/25/23 22:45 68 17 91 L 02/25/23 22:30 70 18 91 L 02/25/23 22:15 84 20 92 L 02/25/23 22:03 97.7 F 68 15 133/41 02/25/23 22:00 69 17 90 L 02/25/23 21:45 69 16 92 L 02/25/23 21:30 66 13 92 L 02/25/23 21:15 65 19 93 L 02/25/23 21:00 57 L 13 94 L 02/25/23 20:45 68 18 93 L 02/25/23 20:30 64 18 94 L 02/25/23 20:15 97.7 F 43 L 19 95 02/25/23 20:00 68 20 92 L 02/25/23 19:45 61 19 95 02/25/23 19:30 57 L 18 95 02/25/23 19:15 47 L 14 94 L 02/25/23 19:00 55 L 19 94 L 02/25/23 18:45 59 L 25 H 92 L 02/25/23 18:30 67 27 H 90 L 02/25/23 18:15 67 27 H 02/25/23 18:00 64 30 H 90 L 02/25/23 17:45 61 33 H 90 L 02/25/23 17:30 56 L 24 90 L 02/25/23 17:15 60 32 H 90 L 02/25/23 17:00 61 26 H 89 L 02/25/23 16:45 65 21 107/54 90 L 02/25/23 16:30 62 20 100/36 93 L 02/25/23 16:15 46 L 16 87/42 95 02/25/23 16:00 97.6 F 49 L 15 93/43 95 02/25/23 15:45 48 L 20 103/23 96 02/25/23 15:30 63 20 94 L 02/25/23 15:15 60 25 H 88/39 96 02/25/23 15:00 57 L 16 101/45 97 02/25/23 14:45 41 L 17 86/49 96 02/25/23 14:30 44 L 17 88/70 96 02/25/23 14:15 51 L 20 112/84 95 02/25/23 14:00 59 L 32 H 104/82 94 L 02/25/23 13:45 54 L 13 99/28 96 02/25/23 13:30 43 L 16 95 02/25/23 13:15 46 L 16 95/69 96 02/25/23 13:00 61 27 H 97/48 95 02/25/23 12:45 54 L 16 89/22 95 02/25/23 12:30 43 L 16 83/41 95 02/25/23 12:15 59 L 18 94 L 02/25/23 12:00 97.4 F L 63 26 H 92 L 02/25/23 11:45 67 33 H 94 L 02/25/23 11:30 68 35 H 90 L 02/25/23 11:15 71 26 H 90 L 02/25/23 11:00 66 24 89/78 92 L 02/25/23 10:45 58 L 24 92 L 02/25/23 10:30 55 L 17 91 L 02/25/23 10:15 74 21 138/94 93 L 02/25/23 10:12 75 31 H 92 L 02/25/23 09:53 98.1 F 66 18 101/79 94 L 02/25/23 09:30 96.8 F L 54 L 101/49 92 L Intake and Output 02/25/23 02/26/23 02/26/23 22:59 06:59 14:59 Intake Total 1325.698 236.178 149.167 Output Total 460 320 120 Balance 865.698 -83.822 29.167 Intake: IV 70 160 60 0.9% @ KVO 60 160 60 Invasive Line 1 10 Intake, IV Titration 515.698 76.178 89.167 Amount Furosemide 100 mg In 92.833 89.167 Sodium Chloride 0.9% 90 ml @ 10 MG/HR 10 mls/hr IV .Q10H FIDEL Rx#: [id number] Norepinephrine 32 mg In 6.057 76.178 Sodium Chloride 0.9% 218 ml @ 0.03 MCG/KG/MIN 1.69 mls/hr IV .Q24H [facility]IDEL Rx#: [id number] Norepinephrine 4 mg In 416.808 Sodium Chloride 0.9% 250 ml @ 0.03 MCG/KG/MIN 13. 739 mls/hr IV .[id number] [facility]IDEL Rx#:[id number] Oral 240 Hemodialysis 500 Output: Urine 210 320 120 Stool 0 Hemodialysis 250 Other: Voiding Method Indwelling Catheter Indwelling Catheter Indwelling Catheter Weight 127 kg ABP, PAP, CO, CI - Last 8 Hours Arterial Blood Pressure 117/35 Arterial Blood Pressure 132/40 Arterial Blood Pressure 138/41 Arterial Blood Pressure 143/45 Arterial Blood Pressure 142/40 Arterial Blood Pressure 141/41 Arterial Blood Pressure 119/53 Arterial Blood Pressure 125/45 Arterial Blood Pressure 136/40 Arterial Blood Pressure 109/40 Arterial Blood Pressure 133/41 Arterial Blood Pressure 139/44 Arterial Blood Pressure 138/46 Arterial Blood Pressure 137/40 Arterial Blood Pressure 130/48 Arterial Blood Pressure 146/41 Arterial Blood Pressure 151/44 Arterial Blood Pressure 153/45 Arterial Blood Pressure 156/49 Arterial Blood Pressure 148/45 Arterial Blood Pressure 135/43 Arterial Blood Pressure 142/45 Arterial Blood Pressure 138/43 Arterial Blood Pressure 151/43 Arterial Blood Pressure 165/43 Arterial Blood Pressure 122/43 Arterial Blood Pressure 136/37 Arterial Blood Pressure 149/44 Arterial Blood Pressure 155/43 Arterial Blood Pressure 151/44 Arterial Blood Pressure 146/43 Results CBC & Chem 7: 02/26/23 04:05 02/26/23 04:05 Labs: Abnormal Lab Results - Last 24 Hours (Table) 02/25/23 02/25/23 02/25/23 Range/Units 09:35 11:30 11:30 RBC (4.30-5.90) m/uL Hgb (13.0-17.5) gm/dL Hct (39.0-53.0) % MCV (80.0-100.0) fL RDW (11.5-15.5) % PT (9.0-12.0) sec INR (<1.2) APTT (22.0-30.0) sec Sodium (137-145) mmol/L Potassium (3.5-5.1) mmol/L Chloride (98-107) mmol/L BUN (9-20) mg/dL Creatinine (0.66-1.25) mg/dL Glucose (74-99) mg/dL POC Glucose (mg/dL) 133 H (70-110) mg/dL Calcium (8.4-10.2) mg/dL Magnesium (1.6-2.3) mg/dL AST (17-59) U/L Creatine Kinase (55-170) U/L CK-MB (CK-2) 17.4 H (0.0-3.4) ng/mL Total Protein (6.3-8.2) g/dL Total Protein (PEP) 4.0 L (6.2-8.2) d/dL Albumin (3.5-5.0) g/dL Albumin (PEP) 1.8 L (3.8-4.9) d/dL Vitamin B12 (200.0-944.0) pg/mL IgG (700.0-1600.0) mg/dL 02/25/23 02/25/23 02/25/23 Range/Units 11:30 11:30 11:30 RBC (4.30-5.90) m/uL Hgb (13.0-17.5) gm/dL Hct (39.0-53.0) % MCV (80.0-100.0) fL RDW (11.5-15.5) % PT 14.0 H (9.0-12.0) sec INR 1.4 H (<1.2) APTT 35.4 H (22.0-30.0) sec Sodium (137-145) mmol/L Potassium 6.2 H* (3.5-5.1) mmol/L Chloride 112 H (98-107) mmol/L BUN 62 H (9-20) mg/dL Creatinine 2.41 H (0.66-1.25) mg/dL Glucose 134 H (74-99) mg/dL POC Glucose (mg/dL) (70-110) mg/dL Calcium 7.3 L (8.4-10.2) mg/dL Magnesium (1.6-2.3) mg/dL AST (17-59) U/L Creatine Kinase (55-170) U/L CK-MB (CK-2) (0.0-3.4) ng/mL Total Protein 4.0 L (6.3-8.2) g/dL Total Protein (PEP) (6.2-8.2) d/dL Albumin 1.8 L (3.5-5.0) g/dL Albumin (PEP) (3.8-4.9) d/dL Vitamin B12 (200.0-944.0) pg/mL IgG 420.0 L (700.0-1600.0) mg/dL 02/25/23 02/25/23 02/25/23 Range/Units 11:30 11:30 11:30 RBC (4.30-5.90) m/uL Hgb (13.0-17.5) gm/dL Hct (39.0-53.0) % MCV (80.0-100.0) fL RDW (11.5-15.5) % PT (9.0-12.0) sec INR (<1.2) APTT (22.0-30.0) sec Sodium (137-145) mmol/L Potassium (3.5-5.1) mmol/L Chloride (98-107) mmol/L BUN (9-20) mg/dL Creatinine (0.66-1.25) mg/dL Glucose (74-99) mg/dL POC Glucose (mg/dL) (70-110) mg/dL Calcium (8.4-10.2) mg/dL Magnesium 3.7 H (1.6-2.3) mg/dL AST (17-59) U/L Creatine Kinase 823 H (55-170) U/L CK-MB (CK-2) (0.0-3.4) ng/mL Total Protein (6.3-8.2) g/dL Total Protein (PEP) (6.2-8.2) d/dL Albumin (3.5-5.0) g/dL Albumin (PEP) (3.8-4.9) d/dL Vitamin B12 1719.0 H (200.0-944.0) pg/mL IgG (700.0-1600.0) mg/dL 02/25/23 02/25/23 02/25/23 Range/Units 11:42 14:07 17:30 RBC (4.30-5.90) m/uL Hgb (13.0-17.5) gm/dL Hct (39.0-53.0) % MCV (80.0-100.0) fL RDW (11.5-15.5) % PT (9.0-12.0) sec INR (<1.2) APTT (22.0-30.0) sec Sodium (137-145) mmol/L Potassium 6.0 H (3.5-5.1) mmol/L Chloride 112 H (98-107) mmol/L BUN 63 H (9-20) mg/dL Creatinine 2.37 H (0.66-1.25) mg/dL Glucose (74-99) mg/dL POC Glucose (mg/dL) 150 H 119 H (70-110) mg/dL Calcium 8.3 L (8.4-10.2) mg/dL Magnesium (1.6-2.3) mg/dL AST 76 H (17-59) U/L Creatine Kinase (55-170) U/L CK-MB (CK-2) (0.0-3.4) ng/mL Total Protein 4.5 L (6.3-8.2) g/dL Total Protein (PEP) (6.2-8.2) d/dL Albumin 2.1 L (3.5-5.0) g/dL Albumin (PEP) (3.8-4.9) d/dL Vitamin B12 (200.0-944.0) pg/mL IgG (700.0-1600.0) mg/dL 02/25/23 02/25/23 02/25/23 Range/Units 20:34 23:25 23:25 RBC (4.30-5.90) m/uL Hgb (13.0-17.5) gm/dL Hct (39.0-53.0) % MCV (80.0-100.0) fL RDW (11.5-15.5) % PT (9.0-12.0) sec INR (<1.2) APTT (22.0-30.0) sec Sodium 136 L (137-145) mmol/L Potassium (3.5-5.1) mmol/L Chloride (98-107) mmol/L BUN 42 H (9-20) mg/dL Creatinine 1.81 H (0.66-1.25) mg/dL Glucose 130 H (74-99) mg/dL POC Glucose (mg/dL) 117 H (70-110) mg/dL Calcium 7.3 L (8.4-10.2) mg/dL Magnesium 3.0 H (1.6-2.3) mg/dL AST (17-59) U/L Creatine Kinase (55-170) U/L CK-MB (CK-2) (0.0-3.4) ng/mL Total Protein (6.3-8.2) g/dL Total Protein (PEP) (6.2-8.2) d/dL Albumin (3.5-5.0) g/dL Albumin (PEP) (3.8-4.9) d/dL Vitamin B12 (200.0-944.0) pg/mL IgG (700.0-1600.0) mg/dL 02/26/23 02/26/23 02/26/23 Range/Units 04:05 04:05 06:46 RBC 2.68 L (4.30-5.90) m/uL Hgb 8.7 L (13.0-17.5) gm/dL Hct 27.8 L (39.0-53.0) % MCV 103.8 H (80.0-100.0) fL RDW 16.3 H (11.5-15.5) % PT (9.0-12.0) sec INR (<1.2) APTT (22.0-30.0) sec Sodium (137-145) mmol/L Potassium (3.5-5.1) mmol/L Chloride 108 H (98-107) mmol/L BUN 44 H (9-20) mg/dL Creatinine 1.99 H (0.66-1.25) mg/dL Glucose 145 H (74-99) mg/dL POC Glucose (mg/dL) 143 H (70-110) mg/dL Calcium 7.2 L (8.4-10.2) mg/dL Magnesium 3.0 H (1.6-2.3) mg/dL AST (17-59) U/L Creatine Kinase (55-170) U/L CK-MB (CK-2) (0.0-3.4) ng/mL Total Protein (6.3-8.2) g/dL Total Protein (PEP) (6.2-8.2) d/dL Albumin (3.5-5.0) g/dL Albumin (PEP) (3.8-4.9) d/dL Vitamin B12 (200.0-944.0) pg/mL IgG (700.0-1600.0) mg/dL Assessment and Plan (1) Stage II pressure ulcer of sacral region Current Visit: Yes Status: Acute Code(s): L89.152 - PRESSURE ULCER OF SACRAL REGION, STAGE 2 SNOMED Code(s): 34572359446118 (2) Non-pressure chronic ulcer of skin of other sites limited to breakdown of skin Current Visit: Yes Status: Acute Code(s): L98.491 - NON-PRS CHRONIC ULCER SKIN/ SITES LIMITED TO BRKDWN SKIN SNOMED Code(s): 99299522 (3) Type 2 diabetes mellitus with other skin ulcer Current Visit: Yes Status: Acute Code(s): E11.622 - TYPE 2 DIABETES MELLITUS WITH OTHER SKIN ULCER; L98.499 - NON-PRESSURE CHRONIC ULCER OF SKIN OF SITES W UNSP SEVERITY SNOMED Code(s): 896680043 (4) Bullous pemphigoid Current Visit: Yes Status: Acute Code(s): L12.0 - BULLOUS PEMPHIGOID SNOMED Code(s): 40316928
--- NOTE | 2023-02-26 09:36 | P.PN ---
Subjective Progress Note Date: 02/26/23 I am seeing this patient in new consultation today 02/25/2023 for suspected acute exacerbation of diastolic congestive heart failure. Patient is a 67-year-old white male with past medical history significant for atrial fibrillation, hyperlipidemia, hypertension, diabetes mellitus type 2, DVT, BPH, bullous pemphigoid and chronic back pain. Patient reportedly went to his business developer for a scheduled stress test yesterday, and was directed to the emergency room. He has been having shortness of breath that has progressively worsened over the last couple weeks. It is especially worse on exertion, and states he can only walk approximately 5 feet. He sleeps in a recliner at home. He's had progressively worsening generalized swelling. Denies any chest pain, heart palpitations, syncope. Chest x-ray on arrival showed cardiomegaly with pulmonary vascular congestion and bilateral pleural effusions. Patient is currently sitting up in bed, on 4 L/m nasal cannula, and is fairly comfortable. He does have gross anasarca. He is pale. Blood pressure is borderline. He has been started on midodrine, and may have to be transferred to the intensive care unit for norepinephrine infusion. Last blood pressure was 90/50. ECG shows atrial fibrillation with controlled ventricular rate. Currently receiving Lasix 40 mg 3 times a day. Barkley catheter has been inserted for accurate intake and output. Patient does have a component of acute kidney injury. He was hyperkalemic, with a potassium of 6.5 on arrival, and was given 10 units of regular insulin, 1 amp D50 W, 1 amp sodium bicarb, and Lokelma. Potassium level did come down to 5.8. BMP on arrival shows sodium 138, potassium down to 5.8, chloride of 112, serum bicarbonate 24, BUN 62, creatinine 2.17, glucose 84. CBC on arrival shows a WBC count of 5.7, hemoglobin 9.5, hematocrit 30.1, platelets 230. He is anemic, and his Xarelto dose was reportedly increased for A. fib prophylaxis back in September 2022. He was found to have new onset A. fib. He denies any bloody bowel movements or melena. Echocardiogram done at that time showed a normal ejection fraction of 55-60% without any valvular abnormality. NT proBNP was elevated at 5360. As stated above, patient has been hypotensive, and may require transfer to the intensive care unit on Levophed if no improvement with midodrine. On today's evaluation of of 02/26/2023, the patient is being seen in follow-up in the intensive care unit. He had a very complicated course yesterday. Note that he continued to have issues with hyperkalemia that was unresponsive to medical treatment. The patient also continued to have difficulties and hypotension, massive fluid overload and low urine output. He was not responding adequately to the diuretics. He was on high-dose pressors and his norepinephrine at a certain stage was running as high as 0.45 mcg/kg/m. As such, it was decided to proceed with hemodialysis. His control his potassium. No ultrafiltration was done. Dialysis was completed a potassium level improved and it dropped down to 4.9 and this morning is up to 5.1. Noted the patient was having episodes of sinus bradycardia yesterday due to his hyperkalemia. His cu rrent cardiac rhythm is sinus. Rate is 65. His norepinephrine has been weaned down to 0.14 mcg/kg/m. He remains on a Lasix drip and is producing somewhere between 40-50 mL of urine output. He continues to have massive fluid overload and fluid weeping from the skin surface of his lower extremities. BUN is 44 with a creatinine of 1.9 and a sodium level is at 139 and a potassium level of 5.1. The patient was at 8.4 with a hemoglobin of 8.7. His ultrasound of the abdomen and the kidneys were done. The patient had no major abnormalities. His common bile duct measured 9 mm in size. No evidence of any hydronephrosis. His echocardiogram was also repeated yesterday and the patient was found to have left ventricular ejection fraction of 55-60%. He had mild RV dilatation. Mild pulmonary hypertension. No significant valvular abnormalities. The patient had a repeat chest x-ray today that showed bilateral pleural effusions and significant volume overload. The patient is currently on 100% nonrebreather facemask. Is arousable and is communicating and the is at the bedside. He does have a dialysis catheter in his left femoral vein. He also has a triple- lumen cath in his left subclavian vein. Objective - Vital Signs Vital signs: Vital Signs Temp 98.2 F 02/26/23 04:00 Pulse 54 L 02/26/23 09:00 Resp 14 02/26/23 09:00 BP 133/41 02/25/23 22:03 Pulse Ox 97 02/26/23 09:00 FiO2 Intake & Output 02/25/23 02/26/23 02/26/23 18:59 06:59 18:59 Intake Total 366.378 8326.473 149.167 Output Total 205 660 120 Balance 590.494 699.473 29.167 Weight 127 kg Intake: IV 220 220 60 0.9% @ KVO 220 60 Calcium Gluconate in NaCl 200 2 gm In Saline 1 100ml. bag @ 100 mls/hr IVPB ONCE [facility] Rx#:[id number] Invasive Line 1 20 Intake, IV Titration 575.494 399.473 89.167 Amount Furosemide 100 mg In 92.833 89.167 Sodium Chloride 0.9% 90 ml @ 10 MG/HR 10 mls/hr IV .Q10H [facility] Rx#: [id number] Norepinephrine 32 mg In 82.235 Sodium Chloride 0.9% 218 ml @ 0.03 MCG/KG/MIN 1.69 mls/hr IV .Q24H [facility] Rx#: [id number] Norepinephrine 4 mg In 575.494 224.405 Sodium Chloride 0.9% 250 ml @ 0.03 MCG/KG/MIN 13. 739 mls/hr IV .[id number] [facility] Rx#:[id number] Oral 240 Hemodialysis 500 Output: Urine 205 410 120 Stool 0 Hemodialysis 250 Other: Voiding Method Indwelling Catheter Indwelling Catheter Indwelling Catheter ABP, PAP, CO, CI - Last Documented Arterial Blood Pressure 117/35 - Exam GENERAL EXAM: Alert, 67-year-old white male, who is pale and appears weak, he is fairly comfortable in no apparent distress. There is gross anasarca. The patient is currently on 100% nonrebreather facemask. Is awake and he is communicating. Breathing is nonlabored HEAD: Normocephalic and atraumatic EYES: Normal reaction of pupils, equal size. NOSE: Clear with pink turbinates. THROAT: No erythema or exudates. NECK: No masses, no JVD. CHEST: No chest wall deformity. LUNGS: Equal air entry with bibasilar inspiratory crackles. No wheeze, rhonchi or dullness. No conversational dyspnea or accessory muscle use.. CVS: S1 and S2 normal with no audible murmur, irregular rhythm. No extra heart sounds ABDOMEN: Obese abdomen, no hepatosplenomegaly, active bowel sounds, no guarding or rigidity. SPINE: No scoliosis or deformity SKIN: No rashes. Bilateral buttocks stage II pressure injuries. Do not appear infected. There is generalized ecchymosis. CENTRAL NERVOUS SYSTEM: No focal deficits, tone is normal in all 4 extremities. EXTREMITIES: There is peripheral edema pitting edema of bilateral upper and lower extremities, 3-4+. No clubbing, or cyanosis. Peripheral pulses are intact. - Labs CBC & Chem 7: 02/26/23 04:05 02/26/23 04:05 Labs: Abnormal Lab Results - Last 24 Hours (Table) 02/25/23 02/25/23 02/25/23 Range/Units 09:35 11:30 11:30 RBC (4.30-5.90) m/uL Hgb (13.0-17.5) gm/dL Hct (39.0-53.0) % MCV (80.0-100.0) fL RDW (11.5-15.5) % PT (9.0-12.0) sec INR (<1.2) APTT (22.0-30.0) sec Sodium (137-145) mmol/L Potassium (3.5-5.1) mmol/L Chloride (98-107) mmol/L BUN (9-20) mg/dL Creatinine (0.66-1.25) mg/dL Glucose (74-99) mg/dL POC Glucose (mg/dL) 133 H (70-110) mg/dL Calcium (8.4-10.2) mg/dL Magnesium (1.6-2.3) mg/dL AST (17-59) U/L Creatine Kinase (55-170) U/L CK-MB (CK-2) 17.4 H (0.0-3.4) ng/mL Total Protein (6.3-8.2) g/dL Total Protein (PEP) 4.0 L (6.2-8.2) d/dL Albumin (3.5-5.0) g/dL Albumin (PEP) 1.8 L (3.8-4.9) d/dL Vitamin B12 (200.0-944.0) pg/mL IgG (700.0-1600.0) mg/dL 02/25/23 02/25/23 02/25/23 Range/Units 11:30 11:30 11:30 RBC (4.30-5.90) m/uL Hgb (13.0-17.5) gm/dL Hct (39.0-53.0) % MCV (80.0-100.0) fL RDW (11.5-15.5) % PT 14.0 H (9.0-12.0) sec INR 1.4 H (<1.2) APTT 35.4 H (22.0-30.0) sec Sodium (137-145) mmol/L Potassium 6.2 H* (3.5-5.1) mmol/L Chloride 112 H (98-107) mmol/L BUN 62 H (9-20) mg/dL Creatinine 2.41 H (0.66-1.25) mg/dL Glucose 134 H (74-99) mg/dL POC Glucose (mg/dL) (70-110) mg/dL Calcium 7.3 L (8.4-10.2) mg/dL Magnesium (1.6-2.3) mg/dL AST (17-59) U/L Creatine Kinase (55-170) U/L CK-MB (CK-2) (0.0-3.4) ng/mL Total Protein 4.0 L (6.3-8.2) g/dL Total Protein (PEP) (6.2-8.2) d/dL Albumin 1.8 L (3.5-5.0) g/dL Albumin (PEP) (3.8-4.9) d/dL Vitamin B12 (200.0-944.0) pg/mL IgG 420.0 L (700.0-1600.0) mg/dL 02/25/23 02/25/23 02/25/23 Range/Units 11:30 11:30 11:30 RBC (4.30-5.90) m/uL Hgb (13.0-17.5) gm/dL Hct (39.0-53.0) % MCV (80.0-100.0) fL RDW (11.5-15.5) % PT (9.0-12.0) sec INR (<1.2) APTT (22.0-30.0) sec Sodium (137-145) mmol/L Potassium (3.5-5.1) mmol/L Chloride (98-107) mmol/L BUN (9-20) mg/dL Creatinine (0.66-1.25) mg/dL Glucose (74-99) mg/dL POC Glucose (mg/dL) (70-110) mg/dL Calcium (8.4-10.2) mg/dL Magnesium 3.7 H (1.6-2.3) mg/dL AST (17-59) U/L Creatine Kinase 823 H (55-170) U/L CK-MB (CK-2) (0.0-3.4) ng/mL Total Protein (6.3-8.2) g/dL Total Protein (PEP) (6.2-8.2) d/dL Albumin (3.5-5.0) g/dL Albumin (PEP) (3.8-4.9) d/dL Vitamin B12 1719.0 H (200.0-944.0) pg/mL IgG (700.0-1600.0) mg/dL 02/25/23 02/25/23 02/25/23 Range/Units 11:42 14:07 17:30 RBC (4.30-5.90) m/uL Hgb (13.0-17.5) gm/dL Hct (39.0-53.0) % MCV (80.0-100.0) fL RDW (11.5-15.5) % PT (9.0-12.0) sec INR (<1.2) APTT (22.0-30.0) sec Sodium (137-145) mmol/L Potassium 6.0 H (3.5-5.1) mmol/L Chloride 112 H (98-107) mmol/L BUN 63 H (9-20) mg/dL Creatinine 2.37 H (0.66-1.25) mg/dL Glucose (74-99) mg/dL POC Glucose (mg/dL) 150 H 119 H (70-110) mg/dL Calcium 8.3 L (8.4-10.2) mg/dL Magnesium (1.6-2.3) mg/dL AST 76 H (17-59) U/L Creatine Kinase (55-170) U/L CK-MB (CK-2) (0.0-3.4) ng/mL Total Protein 4.5 L (6.3-8.2) g/dL Total Protein (PEP) (6.2-8.2) d/dL Albumin 2.1 L (3.5-5.0) g/dL Albumin (PEP) (3.8-4.9) d/dL Vitamin B12 (200.0-944.0) pg/mL IgG (700.0-1600.0) mg/dL 02/25/23 02/25/23 02/25/23 Range/Units 20:34 23:25 23:25 RBC (4.30-5.90) m/uL Hgb (13.0-17.5) gm/dL Hct (39.0-53.0) % MCV (80.0-100.0) fL RDW (11.5-15.5) % PT (9.0-12.0) sec INR (<1.2) APTT (22.0-30.0) sec Sodium 136 L (137-145) mmol/L Potassium (3.5-5.1) mmol/L Chloride (98-107) mmol/L BUN 42 H (9-20) mg/dL Creatinine 1.81 H (0.66-1.25) mg/dL Glucose 130 H (74-99) mg/dL POC Glucose (mg/dL) 117 H (70-110) mg/dL Calcium 7.3 L (8.4-10.2) mg/dL Magnesium 3.0 H (1.6-2.3) mg/dL AST (17-59) U/L Creatine Kinase (55-170) U/L CK-MB (CK-2) (0.0-3.4) ng/mL Total Protein (6.3-8.2) g/dL Total Protein (PEP) (6.2-8.2) d/dL Albumin (3.5-5.0) g/dL Albumin (PEP) (3.8-4.9) d/dL Vitamin B12 (200.0-944.0) pg/mL IgG (700.0-1600.0) mg/dL 02/26/23 02/26/23 02/26/23 Range/Units 04:05 04:05 06:46 RBC 2.68 L (4.30-5.90) m/uL Hgb 8.7 L (13.0-17.5) gm/dL Hct 27.8 L (39.0-53.0) % MCV 103.8 H (80.0-100.0) fL RDW 16.3 H (11.5-15.5) % PT (9.0-12.0) sec INR (<1.2) APTT (22.0-30.0) sec Sodium (137-145) mmol/L Potassium (3.5-5.1) mmol/L Chloride 108 H (98-107) mmol/L BUN 44 H (9-20) mg/dL Creatinine 1.99 H (0.66-1.25) mg/dL Glucose 145 H (74-99) mg/dL POC Glucose (mg/dL) 143 H (70-110) mg/dL Calcium 7.2 L (8.4-10.2) mg/dL Magnesium 3.0 H (1.6-2.3) mg/dL AST (17-59) U/L Creatine Kinase (55-170) U/L CK-MB (CK-2) (0.0-3.4) ng/mL Total Protein (6.3-8.2) g/dL Total Protein (PEP) (6.2-8.2) d/dL Albumin (3.5-5.0) g/dL Albumin (PEP) (3.8-4.9) d/dL Vitamin B12 (200.0-944.0) pg/mL IgG (700.0-1600.0) mg/dL Assessment and Plan Assessment: Acute hypoxemic respiratory failure secondary to exacerbation of diastolic congestive heart failure. Chest x-ray on arrival shows cardiomegaly with pulmonary vascular congestion and small bilateral pleural effusions. NT proBNP was elevated at 5360. Recent echocardiogram back in September, shows left ventricular hypertrophy, with a preserved left ventricular ejection fraction of 55-60%, and no valvular abnormalities reported. The patient has a repeat echocardiogram yesterday that showed preserved LV function/diastolic failure. The patient oxygenation decompensated and patient is currently on a percent nonrebreather facemask. His chest x-ray showed bilateral pleural effusion and edema. Hypotension, on that investigation. Currently norepinephrine is being weaned off and currently is on down to 0.14 microvascular kilogram per minutes. Atrial fibrillation with controlled ventricular rate, anticoagulated on Xarelto, rate is controlled for now Acute kidney injury, possibly cardiorenal versus ATN. Creatinine today is at 1.9. No evidence of hydronephrosis. Hyperkalemia, improved with hemodialysis. The patient also received medical management for hyperkalemia and his potassium level was refractory and as such require dialysis. Anemia, no reported acute blood loss. Mildly macrocytic Hypoalbuminemia and gross anasarca Pressure injuries, stage II, on bilateral buttocks Hyperlipidemia BPH Obesity, with a BMI of 39 kg/m Plan: We'll give IV albumin 25%, 12.5 g to help with his diffuse anasarca and third spacing especially the patient is hypoalbuminemic, and recommended giving in those every 8 hours for the next 48 hours Wean off pressors Keep the patient on a percent nonrebreather facemask We'll discuss the case with nephrology. I would recommend dialysis with ultrafiltration. He does have massive fluid overload and his response to diuresis has been suboptimal. Continue Lasix drip at 10 mg an hour Potassium level is improved and will monitor the levels Hemoglobin is stable Mental status is stable Echocardiogram was noted Ultrasound the kidneys shows no evidence of an hydronephrosis CPK levels are mildly elevated Regarding the results of serum protein electrophoresis and immunofixation Condition is still critical and will continue to follow. The patient be kept in the intensive care unit for now. Critical care evaluation was done in more than 30 minutes Time with Patient: Greater than 30
[2023-02-26] MEDS: ALBUMIN HUMAN 25% 50 ML in EMPTY BAG 1 BAG IVPB SCH ×2 (10:40→17:00)
--- NOTE | 2023-02-26 10:52 | PN ---
PROGRESS NOTE SUBJECTIVE: A 67-year-old gentleman, who is admitted to hospital with generalized anasarca and acute onset diastolic heart failure. He was hypotensive, oliguric and had renal insufficiency with the admission creatinine of 2.4, it is down to 1.9. He seems less short of breath at rest and the generalized anasarca is improving. I do not have accurate input-output information on him. OBJECTIVE: VITAL SIGNS: Afebrile, heart rate is 54 beats per minute, blood pressure is 120/35, respiratory rate is 14, O2 saturation is 97% on 15 L of non-rebreather. NECK: There is no jugular venous distention. CHEST: Reveals diminished air entry at the bases. HEART: Reveals first and second heart sounds. No gallop. No murmur. ABDOMEN: Soft. EXTREMITIES: Reveals bilateral pitting edema. LABORATORY DATA: Show a hemoglobin of 8.7, platelet count is 229. Potassium is 5.1, BUN is 44, creatinine is 1.9. ASSESSMENT AND PLAN: Acute exacerbation of chronic diastolic heart failure, acute renal insufficiency, status post dialysis catheter placement. I will continue the patient on aspirin, Lipitor, midodrine, Lasix drip, and Levophed along with Xarelto that he had been on. MMODL / IJN: [id number] /
[2023-02-26 12:09] LABS: Glucose,Whole Blood 152 mg/dL (70-110)
--- NOTE | 2023-02-26 12:48 | P.PN ---
Subjective Patient is seen for follow-up for acute kidney injury and hyperkalemia. Hyperkalemia was persistent with the subsequent bradycardia and hypotension and patient was eventually dialyzed yesterday. Repeat potassium was 4.9 this morning. Patient remains on Lasix drip. Urine output has picked up slightly to about 40- 50 ML per hour. Patient is currently on 100% nonrebreather. Receive 1 dose of IV albumin. Patient is scheduled for hemodialysis again today. Objective - Vital Signs Vital signs: Vital Signs Temp 98.2 F 02/26/23 04:00 Pulse 76 02/26/23 10:45 Resp 20 02/26/23 10:45 BP 133/41 02/25/23 22:03 Pulse Ox 97 02/26/23 10:45 FiO2 Intake & Output 02/25/23 02/26/23 02/26/23 18:59 06:59 18:59 Intake Total 093.194 1477.473 262.890 Output Total 205 660 215 Balance 590.494 699.473 47.890 Weight 127 kg 127 kg Intake: IV 220 220 130 0.9% @ KVO 220 80 Albumin Human 25% 50 ml 50 In Empty Bag 1 bag @ 50 mls/hr IVPB Q8H [facility] Rx#: [id number] Calcium Gluconate in NaCl 200 2 gm In Saline 1 100ml. bag @ 100 mls/hr IVPB ONCE [facility] Rx#:[id number] Invasive Line 1 20 Intake, IV Titration 575.494 399.473 132.890 Amount Furosemide 100 mg In 92.833 89.167 Sodium Chloride 0.9% 90 ml @ 10 MG/HR 10 mls/hr IV .Q10H [facility] Rx#: [id number] Norepinephrine 32 mg In 82.235 43.723 Sodium Chloride 0.9% 218 ml @ 0.03 MCG/KG/MIN 1.69 mls/hr IV .Q24H [facility] Rx#: [id number] Norepinephrine 4 mg In 575.494 224.405 Sodium Chloride 0.9% 250 ml @ 0.03 MCG/KG/MIN 13. 739 mls/hr IV .[id number] [facility] Rx#:[id number] Oral 240 Hemodialysis 500 Output: Urine 205 410 215 Stool 0 Hemodialysis 250 Other: Voiding Method Indwelling Catheter Indwelling Catheter Indwelling Catheter ABP, PAP, CO, CI - Last Documented Arterial Blood Pressure 130/42 - Exam Patient is awake, comfortable, no acute distress, mildly short of breath Lamination of the heart S1 and S2 Examination lungs decreased breath sounds at the bases basal crackles are heard. Abdomen is soft distended obese nontender Examination lower extremity shows edema 2+ bilaterally with chronic skin changes next line [employer] exam grossly intact - Labs CBC & Chem 7: 02/26/23 04:05 02/26/23 04:05 Labs: Abnormal Lab Results - Last 24 Hours (Table) 02/25/23 02/25/23 02/25/23 Range/Units 11:30 11:30 11:30 RBC (4.30-5.90) m/uL Hgb (13.0-17.5) gm/dL Hct (39.0-53.0) % MCV (80.0-100.0) fL RDW (11.5-15.5) % Sodium (137-145) mmol/L Potassium 6.2 H* (3.5-5.1) mmol/L Chloride 112 H (98-107) mmol/L BUN 62 H (9-20) mg/dL Creatinine 2.41 H (0.66-1.25) mg/dL Glucose 134 H (74-99) mg/dL POC Glucose (mg/dL) (70-110) mg/dL Calcium 7.3 L (8.4-10.2) mg/dL Magnesium (1.6-2.3) mg/dL AST (17-59) U/L Creatine Kinase (55-170) U/L CK-MB (CK-2) 17.4 H (0.0-3.4) ng/mL Total Protein 4.0 L (6.3-8.2) g/dL Total Protein (PEP) 4.0 L (6.2-8.2) d/dL Albumin 1.8 L (3.5-5.0) g/dL Albumin (PEP) 1.8 L (3.8-4.9) d/dL Vitamin B12 (200.0-944.0) pg/mL IgG (700.0-1600.0) mg/dL 02/25/23 02/25/23 02/25/23 Range/Units 11:30 11:30 11:30 RBC (4.30-5.90) m/uL Hgb (13.0-17.5) gm/dL Hct (39.0-53.0) % MCV (80.0-100.0) fL RDW (11.5-15.5) % Sodium (137-145) mmol/L Potassium (3.5-5.1) mmol/L Chloride (98-107) mmol/L BUN (9-20) mg/dL Creatinine (0.66-1.25) mg/dL Glucose (74-99) mg/dL POC Glucose (mg/dL) (70-110) mg/dL Calcium (8.4-10.2) mg/dL Magnesium 3.7 H (1.6-2.3) mg/dL AST (17-59) U/L Creatine Kinase (55-170) U/L CK-MB (CK-2) (0.0-3.4) ng/mL Total Protein (6.3-8.2) g/dL Total Protein (PEP) (6.2-8.2) d/dL Albumin (3.5-5.0) g/dL Albumin (PEP) (3.8-4.9) d/dL Vitamin B12 1719.0 H (200.0-944.0) pg/mL IgG 420.0 L (700.0-1600.0) mg/dL 02/25/23 02/25/23 02/25/23 Range/Units 11:30 14:07 17:30 RBC (4.30-5.90) m/uL Hgb (13.0-17.5) gm/dL Hct (39.0-53.0) % MCV (80.0-100.0) fL RDW (11.5-15.5) % Sodium (137-145) mmol/L Potassium 6.0 H (3.5-5.1) mmol/L Chloride 112 H (98-107) mmol/L BUN 63 H (9-20) mg/dL Creatinine 2.37 H (0.66-1.25) mg/dL Glucose (74-99) mg/dL POC Glucose (mg/dL) 119 H (70-110) mg/dL Calcium 8.3 L (8.4-10.2) mg/dL Magnesium (1.6-2.3) mg/dL AST 76 H (17-59) U/L Creatine Kinase 823 H (55-170) U/L CK-MB (CK-2) (0.0-3.4) ng/mL Total Protein 4.5 L (6.3-8.2) g/dL Total Protein (PEP) (6.2-8.2) d/dL Albumin 2.1 L (3.5-5.0) g/dL Albumin (PEP) (3.8-4.9) d/dL Vitamin B12 (200.0-944.0) pg/mL IgG (700.0-1600.0) mg/dL 02/25/23 02/25/23 02/25/23 Range/Units 20:34 23:25 23:25 RBC (4.30-5.90) m/uL Hgb (13.0-17.5) gm/dL Hct (39.0-53.0) % MCV (80.0-100.0) fL RDW (11.5-15.5) % Sodium 136 L (137-145) mmol/L Potassium (3.5-5.1) mmol/L Chloride (98-107) mmol/L BUN 42 H (9-20) mg/dL Creatinine 1.81 H (0.66-1.25) mg/dL Glucose 130 H (74-99) mg/dL POC Glucose (mg/dL) 117 H (70-110) mg/dL Calcium 7.3 L (8.4-10.2) mg/dL Magnesium 3.0 H (1.6-2.3) mg/dL AST (17-59) U/L Creatine Kinase (55-170) U/L CK-MB (CK-2) (0.0-3.4) ng/mL Total Protein (6.3-8.2) g/dL Total Protein (PEP) (6.2-8.2) d/dL Albumin (3.5-5.0) g/dL Albumin (PEP) (3.8-4.9) d/dL Vitamin B12 (200.0-944.0) pg/mL IgG (700.0-1600.0) mg/dL 02/26/23 02/26/23 02/26/23 Range/Units 04:05 04:05 06:46 RBC 2.68 L (4.30-5.90) m/uL Hgb 8.7 L (13.0-17.5) gm/dL Hct 27.8 L (39.0-53.0) % MCV 103.8 H (80.0-100.0) fL RDW 16.3 H (11.5-15.5) % Sodium (137-145) mmol/L Potassium (3.5-5.1) mmol/L Chloride 108 H (98-107) mmol/L BUN 44 H (9-20) mg/dL Creatinine 1.99 H (0.66-1.25) mg/dL Glucose 145 H (74-99) mg/dL POC Glucose (mg/dL) 143 H (70-110) mg/dL Calcium 7.2 L (8.4-10.2) mg/dL Magnesium 3.0 H (1.6-2.3) mg/dL AST (17-59) U/L Creatine Kinase (55-170) U/L CK-MB (CK-2) (0.0-3.4) ng/mL Total Protein (6.3-8.2) g/dL Total Protein (PEP) (6.2-8.2) d/dL Albumin (3.5-5.0) g/dL Albumin (PEP) (3.8-4.9) d/dL Vitamin B12 (200.0-944.0) pg/mL IgG (700.0-1600.0) mg/dL 02/26/23 Range/Units 12:08 RBC (4.30-5.90) m/uL Hgb (13.0-17.5) gm/dL Hct (39.0-53.0) % MCV (80.0-100.0) fL RDW (11.5-15.5) % Sodium (137-145) mmol/L Potassium (3.5-5.1) mmol/L Chloride (98-107) mmol/L BUN (9-20) mg/dL Creatinine (0.66-1.25) mg/dL Glucose (74-99) mg/dL POC Glucose (mg/dL) 152 H (70-110) mg/dL Calcium (8.4-10.2) mg/dL Magnesium (1.6-2.3) mg/dL AST (17-59) U/L Creatine Kinase (55-170) U/L CK-MB (CK-2) (0.0-3.4) ng/mL Total Protein (6.3-8.2) g/dL Total Protein (PEP) (6.2-8.2) d/dL Albumin (3.5-5.0) g/dL Albumin (PEP) (3.8-4.9) d/dL Vitamin B12 (200.0-944.0) pg/mL IgG (700.0-1600.0) mg/dL Assessment and Plan Assessment: 1. Acute kidney injury, oliguric ATN secondary to hypotension. UA shows 3+ protein and large blood. Urine output has improved with Lasix drip. Patient was started on dialysis yesterday 02/25/2023. We will maintain him on daily treatments for now. 2. Acute hyperkalemia associated with acute kidney injury and use of LATONIA inhibitor's in the setting of hypotension. Improvement with dialysis 3. Volume overload, maintained on Lasix drip and receiving hemodialysis. 4. Acute diastolic CHF. Ejection fraction was 55-60% on echocardiogram in September 2022. 5. Hypotension rule out underlying infection. Ejection fraction is preserved. Check cortisol level from initial blood draw as patient did receive Solu-Cortef in the ER. 6. Chronic A. fib with controlled ventricular response maintained on xarelto Plan: Continue with Lasix drip Repeat hemodialysis today and then again in a.m.
[2023-02-26] MEDS: HYDROPHILIC CREAM 180 GM TUBE TOPICAL SCH (16:55)
[2023-02-26 20:12] LABS: Glucose,Whole Blood 201 mg/dL (70-110)
[2023-02-27] MEDS: FUROSEMIDE 100 MG in SODIUM CHLORIDE 0.9% 90 ML IV SCH ×4 (00:31→19:10)
[2023-02-27] MEDS: ALBUMIN HUMAN 25% 50 ML in EMPTY BAG 1 BAG IVPB SCH ×3 (01:47→17:53)
[2023-02-27 05:17] LABS: Anisocytosis Slight; Basophils % (A) 0 %; Eosinophils # (A) 0.3 k/uL (0-0.7); Eosinophils % (A) 3 %; HCT 25.5 % (39.0-53.0); Hypochromasia Marked; Lymphocytes % (A) 22 %; MCH 32.4 pg (25.0-35.0); MCHC 31.4 g/dL (31.0-37.0); Macrocytosis Moderate; Mean Platelet Volume 7.7; Monocytes # (A) 0.4 k/uL (0-1.0); Monocytes % (A) 5 %; Neutrophils # (A) 6.3 k/uL (1.3-7.7); Neutrophils % (A) 69 %; Platelet Count 142 k/uL (150-450); RBC 2.47 m/uL (4.30-5.90); WBC 9.1 k/uL (3.8-10.6)
[2023-02-27 05:27] LABS: African American GFR (CKD) 43 (>60 ml/min/1.73 sqM); Anion Gap -2 mmol/L; Blood Urea Nitrogen 37 mg/dL (9-20); Calcium 6.8 mg/dL (8.4-10.2); Carbon Dioxide 32 mmol/L (22-30); Chloride 106 mmol/L (98-107); Glucose 136 mg/dL (74-99); Magnesium 2.6 mg/dL (1.6-2.3); Non-African American GFR(CKD) 38 (>60 ml/min/1.73 sqM); Potassium 4.4 mmol/L (3.5-5.1); Sodium 136 mmol/L (137-145)
[2023-02-27] MEDS: MIDODRINE 5 MG TAB PO SCH ×3 (06:30→16:19)
--- NOTE | 2023-02-27 06:35 | P.PN ---
Subjective Progress Note Date: 02/26/23 Patient is a pleasant 67-year-old male with a history of diastolic dysfunction normal ejection fraction the past came in with anasarca fluid overload and shortness of breath has been going on for about 2 weeks. Patient has significant anasarca involving the entire abdomen bilateral lower extremity is 4 + pitting pedal edema and edema of the bilateral upper extremity is. Patient has a baseline creatinine of around 1.30-1.5 present creatinine is 2.3 2. Patient is hypotensive facet of troponin is negative without any significant EKG changes. Patient does have history of atrial fibrillation presently rate controlled on atenolol which is being held at this time because of hypotension patient also has serum potassium of around 6.8 presently patient was given IV insulin and calcium gluconate. Patient is presently on norepinephrine drip, Lasix drip. Liver enzymes are within normal limits. Patient doesn't have any leukocytosis. Patient doesn't have any fever chills denied any cough with the significant sputum production. 02/26/2023 Patient is seen and evaluated in follow-up this morning in the ICU with multiple medical consultations following. Patient with continued hyperkalemia maintained on Lasix drip with continued hypotension requiring emergent dialysis catheter and receiving dialysis currently. Patient is also maintained on a nonrebreather for continued shortness of breath. Patient is very lethargic although arousable but fatigues very easily. Urine output has improved slightly. at bedside with questions and concerns were answered. Patient is currently afebrile continues with shortness of breath denies chest pain and is requiring some pressor support. Kidney functions as well as potassium is improved since dialysis. Overall prognosis is extremely guarded. Review of systems: Constitutional: reports of fatigue, no fever, or chills Cardiovascular: No reports of chest pain or palpitations Respiratory: reports of shortness of breath with a weak cough GI: No reports of nausea, vomiting, or diarrhea : No reports of dysuria or retention Neurovascular: reports of weakness All medications have been reviewed PHYSICAL EXAMINATION: GENERAL: The patient is lethargic and asleep although arousable but fatigues easily and falls back asleep, alert and oriented x2, not in any acute distress. Obese anasarca HEENT: Pupils are round and equally reacting to light. EOMI. No scleral icterus. No conjunctival pallor. Normocephalic, atraumatic. No pharyng eal erythema. No thyromegaly. CARDIOVASCULAR: S1 and S2 present. No murmurs, rubs, or gallops. PULMONARY: Diminished breath sounds bilaterally with some coarse rhonchi noted, faint crackles at the bases noted ABDOMEN: Soft, nontender, nondistended, normoactive bowel sounds. No palpable organomegaly. MUSCULOSKELETAL: No joint swelling or deformity. EXTREMITIES: No cyanosis, clubbing, anasarca, pitting pedal edema as mentioned above edema of the abdominal wall. NEUROLOGICAL: Gross neurological examination did not reveal any focal deficits. SKIN: Stage II pressure ulcers, pale Assessment: -Cardiogenic shock: Patient is on IV Lasix drip, patient does have diastolic dysfunction. No valve abnormalities. -Congestive heart failure, acute exacerbation with diastolic dysfunction -Acute hypoxic respiratory failure: Secondary to heart failure exacerbation. Patient may have undiagnosed sleep apnea as well -Atrial fibrillation, paroxysmal patient is rate controlled at this time -acute renal failure cardiorenal, requiring emergent dialysis and receiving hemodialysis today and daily for now -chronic kidney disease probably secondary to nephrosclerosis may be secondary to hypertension. -Hyperkalemia secondary to acute renal failure, requiring dialysis, improving -Macrocytic anemia -Pressures ulcers stage II bilateral buttocks, present on admission -Morbid obesity possibility of sleep apnea outpatient sleep study -hyperlipidemia -Benign prostatic hypertrophy, patient is on tamsulosin which is being held temporally at this time because of shock but need to be resumed once his blood pressure improves as soon as possible -Bullous pemphigus has a wound in the left lower extremity, stage II ulcer local wound care -GI prophylaxis -DVT prophylaxis: On anticoagulation as mentioned above -Full code Plan: Patient continues to be in the ICU requiring pressor support with multiple medical consultations following. Vascular surgery was consulted and emergent dialysis catheter was placed and patient is receiving hemodialysis with nephrology following Continue Lasix drip Continue to monitor strict intake and output Follow-up labs Patient is currently on 100% nonrebreather and recommended weaning FiO2 as tolerated Continue renal diet Will need physical therapy evaluation with possible rehab on discharge and will need to discuss further down the line with nephrology if patient will be requiring outpatient dialysis Given significant comorbidities and current clinical condition, prognosis is guarded CODE STATUS was addressed with at the bedside and patient will remain full code The impression and plan of care has been dictated by Nurse Chris Jeantitioner as directed. Dr. Nola MD I have performed a history and examination and MDM of this patient, discussed the same with the dictator, and agree with the dictator's assessment and plan a s written ,documented as a scribe. Based on total visit time, I have performed more than 50% of the visit. Objective - Vital Signs Vital signs: Vital Signs Temp 98.7 F 02/27/23 04:00 Pulse 74 02/27/23 06:00 Resp 20 02/27/23 06:00 BP 137/47 02/26/23 16:00 Pulse Ox 97 02/27/23 06:00 FiO2 50 02/26/23 22:00 Intake & Output 02/26/23 02/26/23 02/27/23 06:59 18:59 06:59 Intake Total 2090.681 4987.134 647.536 Output Total 660 3070 625 Balance 699.473 -2043.866 22.536 Weight 127 kg 127 kg 125.5 kg Intake: IV 220 340 330 0.9% @ KVO 220 220 220 Albumin Human 25% 50 ml 100 50 In Empty Bag 1 bag @ 50 mls/hr IVPB Q8H [facility] Rx#: [id number] Furosemide 100 mg In 20 60 Sodium Chloride 0.9% 90 ml @ 10 MG/HR 10 mls/hr IV .Q10H [facility] Rx#: [id number] Intake, IV Titration 399.473 186.134 167.536 Amount Furosemide 100 mg In 92.833 89.167 100 Sodium Chloride 0.9% 90 ml @ 10 MG/HR 10 mls/hr IV .Q10H [facility] Rx#: [id number] Norepinephrine 32 mg In 82.235 96.967 67.536 Sodium Chloride 0.9% 218 ml @ 0.03 MCG/KG/MIN 1.69 mls/hr IV .Q24H [facility] Rx#: [id number] Norepinephrine 4 mg In 224.405 Sodium Chloride 0.9% 250 ml @ 0.03 MCG/KG/MIN 13. 739 mls/hr IV .[id number] [facility] Rx#:[id number] Oral 240 150 Hemodialysis 500 500 Output: Urine 410 570 625 Hemodialysis 250 2500 Other: Voiding Method Indwelling Catheter Indwelling Catheter Indwelling Catheter ABP, PAP, CO, CI - Last Documented Arterial Blood Pressure 150/55 - Labs CBC & Chem 7: 02/27/23 04:45 02/27/23 04:45 Labs: Abnormal Lab Results - Last 24 Hours (Table) 02/26/23 02/26/23 02/26/23 Range/Units 06:46 12:08 20:10 RBC (4.30-5.90) m/uL Hgb (13.0-17.5) gm/dL Hct (39.0-53.0) % MCV (80.0-100.0) fL RDW (11.5-15.5) % Plt Count (150-450) k/uL Sodium (137-145) mmol/L Carbon Dioxide (22-30) mmol/L BUN (9-20) mg/dL Creatinine (0.66-1.25) mg/dL Glucose (74-99) mg/dL POC Glucose (mg/dL) 143 H 152 H 201 H (70-110) mg/dL Calcium (8.4-10.2) mg/dL Magnesium (1.6-2.3) mg/dL 02/27/23 02/27/23 Range/Units 04:45 04:45 RBC 2.47 L (4.30-5.90) m/uL Hgb 8.0 L (13.0-17.5) gm/dL Hct 25.5 L (39.0-53.0) % MCV 103.0 H (80.0-100.0) fL RDW 16.0 H (11.5-15.5) % Plt Count 142 L (150-450) k/uL Sodium 136 L (137-145) mmol/L Carbon Dioxide 32 H (22-30) mmol/L BUN 37 H (9-20) mg/dL Creatinine 1.80 H (0.66-1.25) mg/dL Glucose 136 H (74-99) mg/dL POC Glucose (mg/dL) (70-110) mg/dL Calcium 6.8 L (8.4-10.2) mg/dL Magnesium 2.6 H (1.6-2.3) mg/dL
[2023-02-27] MEDS: NOREPINEPHRINE 32 MG in SODIUM CHLORIDE 0.9% 218 ML IV SCH ×2 (07:58→09:42)
--- NOTE | 2023-02-27 08:54 | P.PN ---
Subjective Progress Note Date: 02/27/23 I am seeing this patient in new consultation today 02/25/2023 for suspected acute exacerbation of diastolic congestive heart failure. Patient is a 67-year-old white male with past medical history significant for atrial fibrillation, hyperlipidemia, hypertension, diabetes mellitus type 2, DVT, BPH, bullous pemphigoid and chronic back pain. 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 He has been having shortness of breath that has progressively worsened over the last couple weeks. It is especially worse on exertion, and states he can only walk approximately 5 feet. He sleeps in a recliner at home. He's had progressively worsening generalized swelling. Denies any chest pain, heart palpitations, syncope. Chest x-ray on arrival showed cardiomegaly with pulmonary vascular congestion and bilateral pleural effusions. Patient is currently sitting up in bed, on 4 L/m nasal cannula, and is fairly comfortable. He does have gross anasarca. He is pale. Blood pressure is borderline. He has been started on midodrine, and may have to be transferred to the intensive care unit for norepinephrine infusion. Last blood pressure was 90/50. ECG shows atrial fibrillation with controlled ventricular rate. Currently receiving Lasix 40 mg 3 times a day. Barkley catheter has been inserted for accurate intake and output. Patient does have a component of acute kidney injury. He was hyperkalemic, with a potassium of 6.5 on arrival, and was given 10 units of regular insulin, 1 amp D50 W, 1 amp sodium bicarb, and Lokelma. Potassium level did come down to 5.8. BMP on arrival shows sodium 138, potassium down to 5.8, chloride of 112, serum bicarbonate 24, BUN 62, creatinine 2.17, glucose 84. CBC on arrival shows a WBC count of 5.7, hemoglobin 9.5, hematocrit 30.1, platelets 230. He is anemic, and his Xarelto dose was reportedly increased for A. fib prophylaxis back in September 2022. He was found to have new onset A. fib. He denies any bloody bowel movements or melena. Echocardiogram done at that time showed a normal ejection fraction of 55-60% without any valvular abnormality. NT proBNP was elevated at 5360. As stated above, patient has been hypotensive, and may require transfer to the intensive care unit on Levophed if no improvement with midodrine. On today's evaluation of of 02/26/2023, the patient is being seen in follow-up in the intensive care unit. He had a very complicated course yesterday. Note that he continued to have issues with hyperkalemia that was unresponsive to medical treatment. The patient also continued to have difficulties and hypotension, massive fluid overload and low urine output. He was not responding adequately to the diuretics. He was on high-dose pressors and his norepinephrine at a certain stage was running as high as 0.45 mcg/kg/m. As such, it was decided to proceed with hemodialysis. His control his potassium. No ultrafiltration was done. Dialysis was completed a potassium level improved and it dropped down to 4.9 and this morning is up to 5.1. Noted the patient was having episodes of sinus bradycardia yesterday due to his hyperkalemia. His cu rrent cardiac rhythm is sinus. Rate is 65. His norepinephrine has been weaned down to 0.14 mcg/kg/m. He remains on a Lasix drip and is producing somewhere between 40-50 mL of urine output. He continues to have massive fluid overload and fluid weeping from the skin surface of his lower extremities. BUN is 44 with a creatinine of 1.9 and a sodium level is at 139 and a potassium level of 5.1. The patient was at 8.4 with a hemoglobin of 8.7. His ultrasound of the abdomen and the kidneys were done. The patient had no major abnormalities. His common bile duct measured 9 mm in size. No evidence of any hydronephrosis. His echocardiogram was also repeated yesterday and the patient was found to have left ventricular ejection fraction of 55-60%. He had mild RV dilatation. Mild pulmonary hypertension. No significant valvular abnormalities. The patient had a repeat chest x-ray today that showed bilateral pleural effusions and significant volume overload. The patient is currently on 100% nonrebreather facemask. Is arousable and is communicating and the is at the bedside. He does have a dialysis catheter in his left femoral vein. He also has a triple- lumen cath in his left subclavian vein. On today's evaluation of 02/27/2023, the patient is alert and awake and communicating. There is no significant improvement in his neurologic status since yesterday. In same time, there is improvement in volume status. The patient underwent already 2 sessions of hemodialysis and yesterday he received some ultrafiltration. The patient remains on IV albumin 12.5 g, 25%, every 8 hours and the patient is also on Lasix 10 mg an hour. Urine output is in order of 100 mL an hour. The patient has a BUN of 37 with a creatinine of 1.8. Potassium levels down to 4.4. The white cell cause of 9.1 with a hemoglobin of 8.0. His cardiac rhythm is still in nature fibrillation. His oxygenation is stable and the patient is currently on nasal cannula at 15 L. No major signs of any respiratory distress at this point. Hemoglobin is at 8.0. At the same time, the patient is on low-dose pressors and the patient is weaned off and his norepinephrine. norepinephrine is running at 0.08 mcg/kg/m. he remains on anticoagulation and he is on Xarelto . Objective - Vital Signs Vital signs: Vital Signs Temp 98.7 F 02/27/23 04:00 Pulse 68 02/27/23 06:30 Resp 27 H 02/27/23 07:00 BP 137/47 02/26/23 16:00 Pulse Ox 100 02/27/23 08:19 FiO2 100 02/27/23 08:19 Intake & Output 02/26/23 02/27/23 02/27/23 18:59 06:59 18:59 Intake Total 1026.134 647.536 180 Output Total 3070 625 50 Balance -2043.866 22.536 130 Weight 127 kg 125.5 kg Intake: IV 340 330 30 0.9% @ KVO 220 220 20 Albumin Human 25% 50 ml 100 50 In Empty Bag 1 bag @ 50 mls/hr IVPB Q8H [facility] Rx#: [id number] Furosemide 100 mg In 20 60 10 Sodium Chloride 0.9% 90 ml @ 10 MG/HR 10 mls/hr IV .Q10H [facility] Rx#: [id number] Intake, IV Titration 186.134 167.536 Amount Furosemide 100 mg In 89.167 100 Sodium Chloride 0.9% 90 ml @ 10 MG/HR 10 mls/hr IV .Q10H [facility] Rx#: [id number] Norepinephrine 32 mg In 96.967 67.536 Sodium Chloride 0.9% 218 ml @ 0.03 MCG/KG/MIN 1.69 mls/hr IV .Q24H [facility] Rx#: [id number] Oral 150 150 Hemodialysis 500 Output: Urine 570 625 50 Hemodialysis 2500 Other: Voiding Method Indwelling Catheter Indwelling Catheter ABP, PAP, CO, CI - Last Documented Arterial Blood Pressure 148/57 - Exam GENERAL EXAM: Alert, 67-year-old white male, who is pale and appears weak, he is fairly comfortable in no apparent distress. There is gross anasarca. Patient is currently on 15 L of oxygen by nasal cannula. Is awake and he is communicating. Breathing is nonlabored HEAD: Normocephalic and atraumatic EYES: Normal reaction of pupils, equal size. NOSE: Clear with pink turbinates. THROAT: No erythema or exudates. NECK: No masses, no JVD. CHEST: No chest wall deformity. LUNGS: Equal air entry with bibasilar inspiratory crackles. No wheeze, rhonchi or dullness. No conversational dyspnea or accessory muscle use.. CVS: S1 and S2 normal with no audible murmur, irregular rhythm. No extra heart sounds ABDOMEN: Obese abdomen, no hepatosplenomegaly, active bowel sounds, no guarding or rigidity. SPINE: No scoliosis or deformity SKIN: No rashes. Bilateral buttocks stage II pressure injuries. Do not appear infected. There is generalized ecchymosis. CENTRAL NERVOUS SYSTEM: No focal deficits, tone is normal in all 4 extremities. EXTREMITIES: There is peripheral edema pitting edema of bilateral upper and lower extremities, 3-4+. No clubbing, or cyanosis. Peripheral pulses are intac t. - Labs CBC & Chem 7: 02/27/23 04:45 02/27/23 04:45 Labs: Abnormal Lab Results - Last 24 Hours (Table) 02/26/23 02/26/23 02/27/23 Range/Units 12:08 20:10 04:45 RBC 2.47 L (4.30-5.90) m/uL Hgb 8.0 L (13.0-17.5) gm/dL Hct 25.5 L (39.0-53.0) % MCV 103.0 H (80.0-100.0) fL RDW 16.0 H (11.5-15.5) % Plt Count 142 L (150-450) k/uL Sodium (137-145) mmol/L Carbon Dioxide (22-30) mmol/L BUN (9-20) mg/dL Creatinine (0.66-1.25) mg/dL Glucose (74-99) mg/dL POC Glucose (mg/dL) 152 H 201 H (70-110) mg/dL Calcium (8.4-10.2) mg/dL Magnesium (1.6-2.3) mg/dL 02/27/23 Range/Units 04:45 RBC (4.30-5.90) m/uL Hgb (13.0-17.5) gm/dL Hct (39.0-53.0) % MCV (80.0-100.0) fL RDW (11.5-15.5) % Plt Count (150-450) k/uL Sodium 136 L (137-145) mmol/L Carbon Dioxide 32 H (22-30) mmol/L BUN 37 H (9-20) mg/dL Creatinine 1.80 H (0.66-1.25) mg/dL Glucose 136 H (74-99) mg/dL POC Glucose (mg/dL) (70-110) mg/dL Calcium 6.8 L (8.4-10.2) mg/dL Magnesium 2.6 H (1.6-2.3) mg/dL Assessment and Plan Assessment: Acute hypoxemic respiratory failure secondary to exacerbation of diastolic congestive heart failure. Chest x-ray on arrival shows cardiomegaly with pulmonary vascular congestion and small bilateral pleural effusions. NT proBNP was elevated at 5360. Recent echocardiogram back in September, shows left ventricular hypertrophy, with a preserved left ventricular ejection fraction of 55-60%, and no valvular abnormalities reported. The patient has a repeat echocardiogram yesterday that showed preserved LV function/diastolic failure. The patient oxygenation has somewhat the flow to the past 24 hours and the patie nt has been weaned down to 50 L of oxygen by nasal cannula. He got dialyzed twice. He is currently on IV albumin and IV Lasix and the patient is stable to my awake and alert and encephalopathy is also improved Encephalopathy, improving Hypotension, improving and the patient is currently on low-dose norepinephrine at 0.08 mcg/kg/m. Atrial fibrillation with controlled ventricular rate, anticoagulated on Xarelto, rate is controlled for now Acute kidney injury, possibly cardiorenal versus ATN. Creatinine today is at 1.8, no hydronephrosis Hyperkalemia, improved with hemodialysis. The patient also received medical management for hyperkalemia and his potassium level was refractory and as such required dialysis. The patient has C2 sessions of hemodialysis in the potassium level is normalized. Anemia, no reported acute blood loss. Mildly macrocytic Hypoalbuminemia and gross anasarca Pressure injuries, stage II, on bilateral buttocks Hyperlipidemia BPH Obesity, with a BMI of 39 kg/m Plan: Continue IV albumin 25%, 12.5 g to help with his diffuse anasarca and third spacing especially the patient is hypoalbuminemic, and recommended giving in those every 8 hours for the next 48 hours and is being given in combination with Lasix drip at 10 mg an hour Urine output adequate Possible another session of dialysis today Wean off pressors and discontinue norepinephrine Wean down FiO2 and currently is on 50 L of oxygen nasal cannula Continue Lasix drip at 10 mg an hour Potassium level is improved and will monitor the levels Hemoglobin is stable Mental status is stable Echocardiogram was noted Ultrasound the kidneys shows no evidence of an hydronephrosis CPK levels are mildly elevated Regarding the results of serum protein electrophoresis and immunofixation Condition is still critical and will continue to follow. The patient be kept in the intensive care unit for now. Critical care evaluation was done in more than 30 minutes
[2023-02-27] MEDS: RIVAROXABAN 20 MG TAB PO SCH (09:29)
[2023-02-27] MEDS: ATORVASTATIN 40 MG TAB PO SCH (09:29)
[2023-02-27] MEDS: ASPIRIN 81 MG PO SCH (09:29)
[2023-02-27] MEDS: PANTOPRAZOLE 40 MG/10 ML VIAL IVP SCH (09:29)
[2023-02-27] MEDS: HYDROPHILIC CREAM 180 GM TUBE TOPICAL SCH (09:32)
--- NOTE | 2023-02-27 10:23 | PN ---
PROGRESS NOTE SUBJECTIVE: Kamran is a 67-year-old gentleman who was admitted to hospital with generalized anasarca and renal failure. He was started on dialysis, and he has improved significantly since that time. The lower extremity edema had improved. We do not have good input output, but definitely, his weight is coming down from 127 to 125. OBJECTIVE: VITAL SIGNS: Heart rate is 68 beats per minute, blood pressure is 148/50, respiratory rate 18. CHEST: Diminished air entry at the bases. HEART: First and second heart sounds. Systolic murmur at the apex. ABDOMEN: Soft. EXTREMITIES: Bilateral pitting edema. LABORATORY DATA: Labs show a hemoglobin of 8, platelet count is 142. Potassium is 4.4, BUN is 37, creatinine is 1.8 which is improving compared to the 2.4 it was. ASSESSMENT: Acute renal failure with generalized anasarca in a patient with normal LV systolic function. PLAN: The patient is to continue current medications. Continue with the dialysis. MMODL / IJN: [id number] /
--- NOTE | 2023-02-27 11:32 | P.PN ---
Subjective Patient is seen for follow-up for acute kidney injury and hyperkalemia. Hyperkalemia was persistent with the subsequent bradycardia and hypotension and patient was eventually started on dialysis on 02/25/2023 Repeat potassium was 4.4 this morning. Patient remains on Lasix drip. Urine output has picked up slightly to about 60- 80 ML per hour. Patient is currently on 8 L via nasal cannula Status post hemodialysis yesterday with 2.5 L of UF on 02/26/2023 Patient is scheduled for hemodialysis again today. Objective - Vital Signs Vital signs: Vital Signs Temp 98.4 F 02/27/23 08:00 Pulse 61 02/27/23 11:15 Resp 20 02/27/23 11:15 BP 137/47 02/26/23 16:00 Pulse Ox 98 02/27/23 11:15 FiO2 100 02/27/23 08:19 Intake & Output 02/26/23 02/27/23 02/27/23 18:59 06:59 18:59 Intake Total 1026.134 647.536 497.246 Output Total 3070 625 365 Balance -2043.866 22.536 132.246 Weight 127 kg 125.5 kg Intake: IV 340 330 150 0.9% @ KVO 220 220 100 Albumin Human 25% 50 ml 100 50 In Empty Bag 1 bag @ 50 mls/hr IVPB Q8H [facility] Rx#: [id number] Furosemide 100 mg In 20 60 50 Sodium Chloride 0.9% 90 ml @ 10 MG/HR 10 mls/hr IV .Q10H [facility] Rx#: [id number] Intake, IV Titration 186.134 167.536 97.246 Amount Furosemide 100 mg In 89.167 100 90.5 Sodium Chloride 0.9% 90 ml @ 10 MG/HR 10 mls/hr IV .Q10H [facility] Rx#: [id number] Norepinephrine 32 mg In 96.967 67.536 6.746 Sodium Chloride 0.9% 218 ml @ 0.03 MCG/KG/MIN 1.69 mls/hr IV .Q24H [facility] Rx#: [id number] Oral 150 250 Hemodialysis 500 Output: Urine 570 625 365 Hemodialysis 2500 Other: Voiding Method Indwelling Catheter Indwelling Catheter Indwelling Catheter ABP, PAP, CO, CI - Last Documented Arterial Blood Pressure 160/46 - Exam Patient is awake, comfortable, no acute distress, mentation has improved Examination of the heart S1 and S2 Examination lungs decreased breath sounds at the bases basal crackles are heard. Abdomen is soft distended obese nontender Examination lower extremity shows edema 2+ bilaterally with chronic skin changes next line [employer] exam grossly intact - Labs CBC & Chem 7: 02/27/23 04:45 02/27/23 04:45 Labs: Abnormal Lab Results - Last 24 Hours (Table) 02/26/23 02/26/23 02/27/23 Range/Units 12:08 20:10 04:45 RBC 2.47 L (4.30-5.90) m/uL Hgb 8.0 L (13.0-17.5) gm/dL Hct 25.5 L (39.0-53.0) % MCV 103.0 H (80.0-100.0) fL RDW 16.0 H (11.5-15.5) % Plt Count 142 L (150-450) k/uL Sodium (137-145) mmol/L Carbon Dioxide (22-30) mmol/L BUN (9-20) mg/dL Creatinine (0.66-1.25) mg/dL Glucose (74-99) mg/dL POC Glucose (mg/dL) 152 H 201 H (70-110) mg/dL Calcium (8.4-10.2) mg/dL Magnesium (1.6-2.3) mg/dL 02/27/23 Range/Units 04:45 RBC (4.30-5.90) m/uL Hgb (13.0-17.5) gm/dL Hct (39.0-53.0) % MCV (80.0-100.0) fL RDW (11.5-15.5) % Plt Count (150-450) k/uL Sodium 136 L (137-145) mmol/L Carbon Dioxide 32 H (22-30) mmol/L BUN 37 H (9-20) mg/dL Creatinine 1.80 H (0.66-1.25) mg/dL Glucose 136 H (74-99) mg/dL POC Glucose (mg/dL) (70-110) mg/dL Calcium 6.8 L (8.4-10.2) mg/dL Magnesium 2.6 H (1.6-2.3) mg/dL Assessment and Plan Assessment: 1. Acute kidney injury, non-oliguric ATN secondary to hypotension. UA shows 3+ protein and large blood. Urine output has improved with Lasix drip. Patient was started on dialysis yesterday 02/25/2023. We will maintain him on daily treatments for now. 2. Acute hyperkalemia associated with acute kidney injury and use of LATONIA inhibi tor's in the setting of hypotension. Improvement with dialysis 3. Volume overload, maintained on Lasix drip and receiving hemodialysis. 4. Acute diastolic CHF. Ejection fraction was 55-60% on echocardiogram in September 2022. 5. Hypotension rule out underlying infection. Ejection fraction is preserved. Check cortisol level from initial blood draw as patient did receive Solu-Cortef in the ER. 6. Chronic A. fib with controlled ventricular response maintained on xarelto 7. Acute hypoxic respiratory failure secondary to CHF and volume overload Plan: Continue with Lasix drip Repeat hemodialysis today and then again in a.m. UF goal of about 2-2.5 L as tolerated. Levo fed is being weaned
[2023-02-27 12:07] LABS: Glucose,Whole Blood 156 mg/dL (70-110)
[2023-02-27] MEDS ORDERED: DEXTROSE 50% SYRINGE 50 ML IVP PRN ×2 (16:25)
[2023-02-27 16:26] LABS: Glucose,Whole Blood 154 mg/dL (70-110)
--- NOTE | 2023-02-27 16:31 | P.PN ---
Subjective Progress Note Date: 02/27/23 Patient is a pleasant 67-year-old male with a history of diastolic dysfunction normal ejection fraction the past came in with anasarca fluid overload and shortness of breath has been going on for about 2 weeks. Patient has significant anasarca involving the entire abdomen bilateral lower extremity is 4 + pitting pedal edema and edema of the bilateral upper extremity is. Patient has a baseline creatinine of around 1.30-1.5 present creatinine is 2.3 2. Patient is hypotensive facet of troponin is negative without any significant EKG changes. Patient does have history of atrial fibrillation presently rate controlled on atenolol which is being held at this time because of hypotension patient also has serum potassium of around 6.8 presently patient was given IV insulin and calcium gluconate. Patient is presently on norepinephrine drip, Lasix drip. Liver enzymes are within normal limits. Patient doesn't have any leukocytosis. Patient doesn't have any fever chills denied any cough with the significant sputum production. 02/26/2023 Patient is seen and evaluated in follow-up this morning in the ICU with multiple medical consultations following. Patient with continued hyperkalemia maintained on Lasix drip with continued hypotension requiring emergent dialysis catheter and receiving dialysis currently. Patient is also maintained on a nonrebreather for continued shortness of breath. Patient is very lethargic although arousable but fatigues very easily. Urine output has improved slightly. at bedside with questions and concerns were answered. Patient is currently afebrile continues with shortness of breath denies chest pain and is requiring some pressor support. Kidney functions as well as potassium is improved since dialysis. Overall prognosis is extremely guarded. 02/27/2023 Patient is seen in follow-up continues to be in the ICU currently receiving hemodialysis and tolerating. Continues on low-dose Levophed which is currently being weaned. Continues on Lasix drip at 10 mL's per hour with some improvement in urine output. Patient was on 15 L high flow this morning along with nasal cannula and has titrated down to 8 L high flow and recommended weaning FiO2 as tolerated. Plan is for hemodialysis daily for now and will follow-up with labs. Kidney functions are improving and BUN is 37 with a creatinine of 1.8. Hemoglobin currently stable at 8.0 most likely anemia of chronic disease. Patient is afebrile report some improvement in his shortness of breath although continues to be short of breath. Patient extremely weak and does have history of chronic back pain and was scheduled to have outpatient procedure. Patient with significant upper and lower extremity edema pitting with minimal improvement. Review of systems: Constitutional: reports of fatigue, no fever, or chills Cardiovascular: No reports of chest pain or palpitations Respiratory: reports of shortness of breath with a weak cough, reports some improvement in shortness of breath and weaning FiO2 currently down to 8 L nasal cannula GI: No reports of nausea, vomiting, or diarrhea : No reports of dysuria or retention Neurovascular: reports of weakness All medications have been reviewed PHYSICAL EXAMINATION: GENERAL: The patient is lethargic and asleep although arousable but fatigues easily and falls back asleep, alert and oriented x2, not in any acute distress. Obese anasarca HEENT: Pupils are round and equally reacting to light. EOMI. No scleral icterus. No conjunctival pallor. Normocephalic, atraumatic. No pharyngeal erythema. No thyromegaly. CARDIOVASCULAR: S1 and S2 present. No murmurs, rubs, or gallops. PULMONARY: Diminished breath sounds bilaterally with some coarse rhonchi noted, faint crackles at the bases noted ABDOMEN: Soft, nontender, nondistended, normoactive bowel sounds. No palpable organomegaly. MUSCULOSKELETAL: No joint swelling or deformity. EXTREMITIES: No cyanosis, clubbing, anasarca, pitting pedal edema as mentioned above edema of the abdominal wall. NEUROLOGICAL: Gross neurological examination did not reveal any focal deficits. SKIN: Stage II pressure ulcers, pale Assessment: -Cardiogenic shock: Patient is on IV Lasix drip, patient does have diastolic dysfunction. No valve abnormalities. -Congestive heart failure, acute exacerbation with diastolic dysfunction -Acute hypoxic respiratory failure: Secondary to heart failure exacerbation. -Atrial fibrillation, paroxysmal patient is rate controlled at this time -acute kidney injury with acute tubular necrosis secondary to hypotension, improving requiring emergent dialysis -chronic kidney disease probably secondary to nephrosclerosis -Hyperkalemia secondary to acute renal failure, requiring dialysis, improving -Macrocytic anemia -Pressures ulcers stage II bilateral buttocks, present on admission -Morbid obesity with a BMI of 40.9, -possible sleep apnea, will need outpatient sleep study -hyperlipidemia history -Benign prostatic hypertrophy, patient is on tamsulosin which is being held temporally at this time because of shock but need to be resumed once his blood pressure improves as soon as possible -Bullous pemphigus has a wound in the left lower extremity, continue local wound care -GI prophylaxis -DVT prophylaxis: On anticoagulation as mentioned above -Full code Plan: Patient continues to be in the ICU requiring pressor support with multiple medical consultations following. Vascular surgery placed emergent dialysis catheter , planning for daily with ultrafiltration tomorrow and patient is receiving hemodialysis with nephrology following Continue Lasix drip at 10 mL per hour Continue to monitor strict intake and output Follow-up labs ordered Patient was on 15 L nonrebreather as well as nasal cannula and being weaned as tolerated, down to 8 L via nasal cannula today, recommended weaning FiO2 as tolerated Continue renal diet Will need physical therapy evaluation with possible rehab on discharge and will need to discuss further down the line with nephrology if patient will be requiring outpatient dialysis Given significant comorbidities and current clinical condition, prognosis is guarded CODE STATUS was addressed with at the bedside and patient will remain full code The impression and plan of care has been dictated by Sandra Ayala, Nurse Practitioner as directed. Dr. Nola MD I have performed a history and examination and MDM of this patient, discussed the same with the dictator, and agree with the dictator's assessment and plan as written ,documented as a scribe. Based on total visit time, I have performed more than 50% of the visit. Objective - Vital Signs Vital signs: Vital Signs Temp 98.7 F 02/27/23 04:00 Pulse 74 02/27/23 06:00 Resp 20 02/27/23 06:00 BP 137/47 02/26/23 16:00 Pulse Ox 97 02/27/23 06:00 FiO2 50 02/26/23 22:00 Intake & Output 02/26/23 02/26/23 02/27/23 06:59 18:59 06:59 Intake Total 8215.464 9977.134 647.536 Output Total 660 3070 625 Balance 699.473 -2043.866 22.536 Weight 127 kg 127 kg 125.5 kg Intake: IV 220 340 330 0.9% @ KVO 220 220 220 Albumin Human 25% 50 ml 100 50 In Empty Bag 1 bag @ 50 mls/hr IVPB Q8H [facility] Rx#: [id number] Furosemide 100 mg In 20 60 Sodium Chloride 0.9% 90 ml @ 10 MG/HR 10 mls/hr IV .Q10H [facility] Rx#: [id number] Intake, IV Titration 399.473 186.134 167.536 Amount Furosemide 100 mg In 92.833 89.167 100 Sodium Chloride 0.9% 90 ml @ 10 MG/HR 10 mls/hr IV .Q10H [facility] Rx#: [id number] Norepinephrine 32 mg In 82.235 96.967 67.536 Sodium Chloride 0.9% 218 ml @ 0.03 MCG/KG/MIN 1.69 mls/hr IV .Q24H [facility] Rx#: [id number] Norepinephrine 4 mg In 224.405 Sodium Chloride 0.9% 250 ml @ 0.03 MCG/KG/MIN 13. 739 mls/hr IV .[id number] [facility] Rx#:[id number] Oral 240 150 Hemodialysis 500 500 Output: Urine 410 570 625 Hemodialysis 250 2500 Other: Voiding Method Indwelling Catheter Indwelling Catheter Indwelling Catheter ABP, PAP, CO, CI - Last Documented Arterial Blood Pressure 150/55 - Labs CBC & Chem 7: 02/27/23 04:45 02/27/23 04:45 Labs: Abnormal Lab Results - Last 24 Hours (Table) 02/26/23 02/26/23 02/26/23 Range/Units 06:46 12:08 20:10 RBC (4.30-5.90) m/uL Hgb (13.0-17.5) gm/dL Hct (39.0-53.0) % MCV (80.0-100.0) fL RDW (11.5-15.5) % Plt Count (150-450) k/uL Sodium (137-145) mmol/L Carbon Dioxide (22-30) mmol/L BUN (9-20) mg/dL Creatinine (0.66-1.25) mg/dL Glucose (74-99) mg/dL POC Glucose (mg/dL) 143 H 152 H 201 H (70-110) mg/dL Calcium (8.4-10.2) mg/dL Magnesium (1.6-2.3) mg/dL 02/27/23 02/27/23 Range/Units 04:45 04:45 RBC 2.47 L (4.30-5.90) m/uL Hgb 8.0 L (13.0-17.5) gm/dL Hct 25.5 L (39.0-53.0) % MCV 103.0 H (80.0-100.0) fL RDW 16.0 H (11.5-15.5) % Plt Count 142 L (150-450) k/uL Sodium 136 L (137-145) mmol/L Carbon Dioxide 32 H (22-30) mmol/L BUN 37 H (9-20) mg/dL Creatinine 1.80 H (0.66-1.25) mg/dL Glucose 136 H (74-99) mg/dL POC Glucose (mg/dL) (70-110) mg/dL Calcium 6.8 L (8.4-10.2) mg/dL Magnesium 2.6 H (1.6-2.3) mg/dL
[2023-02-27] MEDS: INSULIN ASPART (NovoLOG) 100 UNIT/ML VIAL SQ SCH ×2 (17:00→20:11)
[2023-02-27 17:03] LABS: Gamma Globulin 0.24 d/dL (0.70-1.50)
[2023-02-27] MEDS ORDERED: ALPRAZolam 0.25 MG TAB PO PRN (19:17)
[2023-02-27 20:05] LABS: Glucose,Whole Blood 182 mg/dL (70-110)
[2023-02-28] MEDS: ALBUMIN HUMAN 25% 50 ML in EMPTY BAG 1 BAG IVPB SCH (01:59)
[2023-02-28] MEDS: FUROSEMIDE 100 MG in SODIUM CHLORIDE 0.9% 90 ML IV SCH ×2 (03:43→13:53)
[2023-02-28 04:27] LABS: Anisocytosis Slight; Basophils % (A) 0 %; Eosinophils # (A) 0.3 k/uL (0-0.7); Eosinophils % (A) 3 %; HCT 24.3 % (39.0-53.0); HGB 7.7 gm/dL (13.0-17.5); Hypochromasia Marked; Lymphocytes # (A) 1.4 k/uL (1.0-4.8); Lymphocytes % (A) 16 %; MCH 32.6 pg (25.0-35.0); MCHC 31.8 g/dL (31.0-37.0); MCV 102.4 fL (80.0-100.0); Macrocytosis Moderate; Mean Platelet Volume 8.5; Monocytes # (A) 0.4 k/uL (0-1.0); Monocytes % (A) 4 %; Neutrophils # (A) 6.7 k/uL (1.3-7.7); Neutrophils % (A) 75 %; Platelet Count 105 k/uL (150-450); RBC 2.37 m/uL (4.30-5.90); RDW 16.3 % (11.5-15.5); WBC 8.9 k/uL (3.8-10.6)
[2023-02-28 05:17] LABS: African American GFR (CKD) 42 (>60 ml/min/1.73 sqM); Anion Gap 1 mmol/L; Blood Urea Nitrogen 30 mg/dL (9-20); Calcium 6.7 mg/dL (8.4-10.2); Carbon Dioxide 31 mmol/L (22-30); Chloride 104 mmol/L (98-107); Glucose 129 mg/dL (74-99); Magnesium 2.3 mg/dL (1.6-2.3); Non-African American GFR(CKD) 36 (>60 ml/min/1.73 sqM); Potassium 4.2 mmol/L (3.5-5.1); Sodium 136 mmol/L (137-145)
[2023-02-28] MEDS: INSULIN ASPART (NovoLOG) 100 UNIT/ML VIAL SQ SCH ×4 (06:42→21:53)
[2023-02-28] MEDS: MIDODRINE 5 MG TAB PO SCH ×3 (06:43→17:19)
[2023-02-28 06:51] LABS: Glucose,Whole Blood 129 mg/dL (70-110)
[2023-02-28] MEDS: ATORVASTATIN 40 MG TAB PO SCH (08:06)
[2023-02-28] MEDS: PANTOPRAZOLE 40 MG/10 ML VIAL IVP SCH (08:06)
[2023-02-28] MEDS: ASPIRIN 81 MG PO SCH (08:06)
[2023-02-28] MEDS: RIVAROXABAN 20 MG TAB PO SCH (08:06)
[2023-02-28] MEDS: HYDROPHILIC CREAM 180 GM TUBE TOPICAL SCH (08:07)
--- NOTE | 2023-02-28 09:02 | P.PN ---
Subjective Progress Note Date: 02/28/23 I am seeing this patient in new consultation today 02/25/2023 for suspected acute exacerbation of diastolic congestive heart failure. Patient is a 67-year-old white male with past medical history significant for atrial fibrillation, hyperlipidemia, hypertension, diabetes mellitus type 2, DVT, BPH, bullous pemphigoid and chronic back pain. 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 He has been having shortness of breath that has progressively worsened over the last couple weeks. It is especially worse on exertion, and states he can only walk approximately 5 feet. He sleeps in a recliner at home. He's had progressively worsening generalized swelling. Denies any chest pain, heart palpitations, syncope. Chest x-ray on arrival showed cardiomegaly with pulmonary vascular congestion and bilateral pleural effusions. Patient is currently sitting up in bed, on 4 L/m nasal cannula, and is fairly comfortable. He does have gross anasarca. He is pale. Blood pressure is borderline. He has been started on midodrine, and may have to be transferred to the intensive care unit for norepinephrine infusion. Last blood pressure was 90/50. ECG shows atrial fibrillation with controlled ventricular rate. Currently receiving Lasix 40 mg 3 times a day. Barkley catheter has been inserted for accurate intake and output. Patient does have a component of acute kidney injury. He was hyperkalemic, with a potassium of 6.5 on arrival, and was given 10 units of regular insulin, 1 amp D50 W, 1 amp sodium bicarb, and Lokelma. Potassium level did come down to 5.8. BMP on arrival shows sodium 138, potassium down to 5.8, chloride of 112, serum bicarbonate 24, BUN 62, creatinine 2.17, glucose 84. CBC on arrival shows a WBC count of 5.7, hemoglobin 9.5, hematocrit 30.1, platelets 230. He is anemic, and his Xarelto dose was reportedly increased for A. fib prophylaxis back in September 2022. He was found to have new onset A. fib. He denies any bloody bowel movements or melena. Echocardiogram done at that time showed a normal ejection fraction of 55-60% without any valvular abnormality. NT proBNP was elevated at 5360. As stated above, patient has been hypotensive, and may require transfer to the intensive care unit on Levophed if no improvement with midodrine. On today's evaluation of of 02/26/2023, the patient is being seen in follow-up in the intensive care unit. He had a very complicated course yesterday. Note that he continued to have issues with hyperkalemia that was unresponsive to medical treatment. The patient also continued to have difficulties and hypotension, massive fluid overload and low urine output. He was not responding adequately to the diuretics. He was on high-dose pressors and his norepinephrine at a certain stage was running as high as 0.45 mcg/kg/m. As such, it was decided to proceed with hemodialysis. His control his potassium. No ultrafiltration was done. Dialysis was completed a potassium level improved and it dropped down to 4.9 and this morning is up to 5.1. Noted the patient was having episodes of sinus bradycardia yesterday due to his hyperkalemia. His cu rrent cardiac rhythm is sinus. Rate is 65. His norepinephrine has been weaned down to 0.14 mcg/kg/m. He remains on a Lasix drip and is producing somewhere between 40-50 mL of urine output. He continues to have massive fluid overload and fluid weeping from the skin surface of his lower extremities. BUN is 44 with a creatinine of 1.9 and a sodium level is at 139 and a potassium level of 5.1. The patient was at 8.4 with a hemoglobin of 8.7. His ultrasound of the abdomen and the kidneys were done. The patient had no major abnormalities. His common bile duct measured 9 mm in size. No evidence of any hydronephrosis. His echocardiogram was also repeated yesterday and the patient was found to have left ventricular ejection fraction of 55-60%. He had mild RV dilatation. Mild pulmonary hypertension. No significant valvular abnormalities. The patient had a repeat chest x-ray today that showed bilateral pleural effusions and significant volume overload. The patient is currently on 100% nonrebreather facemask. Is arousable and is communicating and the is at the bedside. He does have a dialysis catheter in his left femoral vein. He also has a triple- lumen cath in his left subclavian vein. On today's evaluation of 02/27/2023, the patient is alert and awake and communicating. There is no significant improvement in his neurologic status since yesterday. In same time, there is improvement in volume status. The patient underwent already 2 sessions of hemodialysis and yesterday he received some ultrafiltration. The patient remains on IV albumin 12.5 g, 25%, every 8 hours and the patient is also on Lasix 10 mg an hour. Urine output is in order of 100 mL an hour. The patient has a BUN of 37 with a creatinine of 1.8. Potassium levels down to 4.4. The white cell cause of 9.1 with a hemoglobin of 8.0. His cardiac rhythm is still in nature fibrillation. His oxygenation is stable and the patient is currently on nasal cannula at 15 L. No major signs of any respiratory distress at this point. Hemoglobin is at 8.0. At the same time, the patient is on low-dose pressors and the patient is weaned off and his norepinephrine. norepinephrine is running at 0.08 mcg/kg/m. he remains on anticoagulation and he is on Xarelto . 02/28/2023, the patient is doing extremely well. He is on 4 L of oxygen by nasal cannula. He remains on Lasix drip at 10 mg an hour. Urine output is adequate. There is improvement in the edema as the patient is undergoing daily sessions of hemodialysis. He has already undergone 3 sessions of hemodialysis the last being yesterday. He is currently on 4 L O2. His off pressors. The patient's creatinine is down to 1.8 with a BUN of 30. Sodium level is at 136. White cell count of 8.0 with a hemoglobin of 7.7. Repeat chest x-ray was done this morning and shows moderate-sized bilateral pleural effusion and as such the patient continues to have some excess volume his chest. Nephrology is on the case. Pressors are off. Cardiac rhythm is atrial fibrillation. Remains on anticoagulation. Objective - Vital Signs Vital signs: Vital Signs Temp 98.2 F 02/28/23 08:00 Pulse 79 02/28/23 08:00 Resp 20 02/28/23 08:00 BP 122/64 02/28/23 08:00 Pulse Ox 92 L 02/28/23 08:00 FiO2 100 02/27/23 08:19 Intake & Output 02/27/23 02/28/23 02/28/23 18:59 06:59 18:59 Intake Total 1612.785 603.289 50 Output Total 3135 245 80 Balance -1522.215 358.289 -30 Weight 130.4 kg Intake: IV 560 400 50 0.9% @ KVO 240 240 40 Albumin Human 25% 50 ml 200 50 In Empty Bag 1 bag @ 50 mls/hr IVPB Q8H [facility] Rx#: [id number] Furosemide 100 mg In 120 110 10 Sodium Chloride 0.9% 90 ml @ 10 MG/HR 10 mls/hr IV .Q10H FIDEL Rx#: [id number] Intake, IV Titration 102.785 203.289 Amount Furosemide 100 mg In 90.5 181.5 Sodium Chloride 0.9% 90 ml @ 10 MG/HR 10 mls/hr IV .Q10H [facility] Rx#: [id number] Norepinephrine 32 mg In 12.285 21.789 Sodium Chloride 0.9% 218 ml @ 0.03 MCG/KG/MIN 1.69 mls/hr IV .Q24H [facility]EL Rx#: [id number] Oral 450 Hemodialysis 500 Output: Urine 635 245 80 Hemodialysis 2500 Other: Voiding Method Indwelling Catheter Indwelling Catheter Indwelling Catheter ABP, PAP, CO, CI - Last Documented Arterial Blood Pressure 139/40 - Exam GENERAL EXAM: Alert, 67-year-old white male, who is pale and appears weak, he is fairly comfortable in no apparent distress. There is gross anasarca. Patient is currently on 4 L of oxygen by nasal cannula. Is awake and he is communicating. Breathing is nonlabored HEAD: Normocephalic and atraumatic EYES: Normal reaction of pupils, equal size. NOSE: Clear with pink turbinates. THROAT: No erythema or exudates. NECK: No masses, no JVD. CHEST: No chest wall deformity. LUNGS: Equal air entry with bibasilar inspiratory crackles. No wheeze, rhonchi or dullness. No conversational dyspnea or accessory muscle use.. CVS: S1 and S2 normal with no audible murmur, irregular rhythm. No extra heart sounds ABDOMEN: Obese abdomen, no hepatosplenomegaly, active bowel sounds, no guarding or rigidity. SPINE: No scoliosis or deformity SKIN: No rashes. Bilateral buttocks stage II pressure injuries. Do not appear infected. There is generalized ecchymosis. CENTRAL NERVOUS SYSTEM: No focal deficits, tone is normal in all 4 extremities. EXTREMITIES: There is peripheral edema pitting edema of bilateral upper and lower extremities, +1. No clubbing, or cyanosis. Peripheral pulses are intact. - Labs CBC & Chem 7: 02/28/23 04:20 02/28/23 04:20 Labs: Abnormal Lab Results - Last 24 Hours (Table) 02/25/23 02/27/23 02/27/23 Range/Units 11:30 12:05 16:24 RBC (4.30-5.90) m/uL Hgb (13.0-17.5) gm/dL Hct (39.0-53.0) % MCV (80.0-100.0) fL RDW (11.5-15.5) % Plt Count (150-450) k/uL Sodium (137-145) mmol/L Carbon Dioxide (22-30) mmol/L BUN (9-20) mg/dL Creatinine (0.66-1.25) mg/dL Glucose (74-99) mg/dL POC Glucose (mg/dL) 156 H 154 H (70-110) mg/dL Calcium (8.4-10.2) mg/dL Jxhyo-1-Yrvthkbth 1.26 H (0.60-1.00) d/dL Gamma Globulins 0.24 L (0.70-1.50) d/dL 02/27/23 02/28/23 02/28/23 Range/Units 20:03 04:20 04:20 RBC 2.37 L (4.30-5.90) m/uL Hgb 7.7 L (13.0-17.5) gm/dL Hct 24.3 L (39.0-53.0) % MCV 102.4 H (80.0-100.0) fL RDW 16.3 H (11.5-15.5) % Plt Count 105 L (150-450) k/uL Sodium 136 L (137-145) mmol/L Carbon Dioxide 31 H (22-30) mmol/L BUN 30 H (9-20) mg/dL Creatinine 1.87 H (0.66-1.25) mg/dL Glucose 129 H (74-99) mg/dL POC Glucose (mg/dL) 182 H (70-110) mg/dL Calcium 6.7 L (8.4-10.2) mg/dL Bzuce-6-Qliyqlcbl (0.60-1.00) d/dL Gamma Globulins (0.70-1.50) d/dL 02/28/23 Range/Units 06:39 RBC (4.30-5.90) m/uL Hgb (13.0-17.5) gm/dL Hct (39.0-53.0) % MCV (80.0-100.0) fL RDW (11.5-15.5) % Plt Count (150-450) k/uL Sodium (137-145) mmol/L Carbon Dioxide (22-30) mmol/L BUN (9-20) mg/dL Creatinine (0.66-1.25) mg/dL Glucose (74-99) mg/dL POC Glucose (mg/dL) 129 H (70-110) mg/dL Calcium (8.4-10.2) mg/dL Uivvv-8-Zgvlfnwvk (0.60-1.00) d/dL Gamma Globulins (0.70-1.50) d/dL Assessment and Plan Assessment: Acute hypoxemic respiratory failure secondary to exacerbation of diastolic congestive heart failure. Chest x-ray on arrival shows cardiomegaly with pulmonary vascular congestion and small bilateral pleural effusions. NT proBNP was elevated at 5360. Recent echocardiogram back in September, shows left ventricular hypertrophy, with a preserved left ventricular ejection fraction of 55-60%, and no valvular abnormalities reported. The patient has a repeat echocardiogram yesterday that showed preserved LV function/diastolic failure. The patient has bilateral pleural effusion and currently is on 4 L of oxygen by nasal cannula and he continues to have bilateral pleural effusions Bilateral pleural effusions Encephalopathy, recovered Hypotension, recovered. Atrial fibrillation with controlled ventricular rate, anticoagulated on Xarelto, rate is controlled for now Acute kidney injury, possibly cardiorenal versus ATN. Creatinine today is at 1.8, no hydronephrosis, the patient is undergoing hemodialysis with ultrafiltration and the patient is also on Lasix drip at 10 mg an hour Hyperkalemia, improved with hemodialysis. The patient also received medical management for hyperkalemia and his potassium level was refractory and as such required dialysis. The patient has C2 sessions of hemodialysis in the potassium level is normalized. Anemia, no reported acute blood loss. Mildly macrocytic Hypoalbuminemia and gross anasarca Pressure injuries, stage II, on bilateral buttocks Hyperlipidemia BPH Obesity, with a BMI of 39 kg/m Plan: Continue Lasix drip Hemodialysis today with ultrafiltration Urine output adequate No pressors Wean down FiO2 and currently is on 4 L of oxygen nasal cannula Potassium level is improved and will monitor the levels Hemoglobin is stable Mental status is stable Echocardiogram was noted reveals another session today and will make to make it out of the ICU today okay right sounds. Ultrasound the kidneys shows no evidence of an hydronephrosis CPK levels are mildly elevated Regarding the results of serum protein electrophoresis and immunofixation Condition is more stable
[2023-02-28 11:13] LABS: Glucose,Whole Blood 172 mg/dL (70-110)
--- NOTE | 2023-02-28 11:42 | P.PN ---
Subjective Patient is seen for follow-up for acute kidney injury and hyperkalemia. Hyperkalemia was persistent with the subsequent bradycardia and hypotension and patient was eventually started on dialysis on 02/25/2023. Patient has been receiving hemodialysis daily with UF of about 8 L over the last 4 days Patient remains on Lasix drip. Urine output at about 50 ML per hour. Patient is currently on 4 L via nasal cannula Patient is seen on hemodialysis today. Next Mentation has improved significantly as well. Objective - Vital Signs Vital signs: Vital Signs Temp 98.2 F 02/28/23 08:00 Pulse 73 02/28/23 11:00 Resp 16 02/28/23 11:00 BP 122/64 02/28/23 08:00 Pulse Ox 95 02/28/23 11:00 FiO2 100 02/27/23 08:19 Intake & Output 02/27/23 02/28/23 02/28/23 18:59 06:59 18:59 Intake Total 1612.785 603.289 110 Output Total 3135 245 140 Balance -1522.215 358.289 -30 Weight 130.4 kg Intake: IV 560 400 110 0.9% @ KVO 240 240 100 Albumin Human 25% 50 ml 200 50 In Empty Bag 1 bag @ 50 mls/hr IVPB Q8H [facility] Rx#: [id number] Furosemide 100 mg In 120 110 10 Sodium Chloride 0.9% 90 ml @ 10 MG/HR 10 mls/hr IV .Q10H [facility] Rx#: [id number] Intake, IV Titration 102.785 203.289 Amount Furosemide 100 mg In 90.5 181.5 Sodium Chloride 0.9% 90 ml @ 10 MG/HR 10 mls/hr IV .Q10H [facility] Rx#: [id number] Norepinephrine 32 mg In 12.285 21.789 Sodium Chloride 0.9% 218 ml @ 0.03 MCG/KG/MIN 1.69 mls/hr IV .Q24H [facility] Rx#: [id number] Oral 450 Hemodialysis 500 Output: Urine 635 245 140 Hemodialysis 2500 Other: Voiding Method Indwelling Catheter Indwelling Catheter Indwelling Catheter ABP, PAP, CO, CI - Last Documented Arterial Blood Pressure 132/44 - Exam Patient is awake, comfortable, no acute distress, mentation has improved Examination of the heart S1 and S2 Examination lungs decreased breath sounds at the bases basal crackles are heard. Abdomen is soft distended obese nontender Examination lower extremity shows edema 2+ bilaterally with chronic skin changes LAYER OFF exam grossly intact - Labs CBC & Chem 7: 02/28/23 04:20 02/28/23 04:20 Labs: Abnormal Lab Results - Last 24 Hours (Table) 02/25/23 02/27/23 02/27/23 Range/Units 11:30 12:05 16:24 RBC (4.30-5.90) m/uL Hgb (13.0-17.5) gm/dL Hct (39.0-53.0) % MCV (80.0-100.0) fL RDW (11.5-15.5) % Plt Count (150-450) k/uL Sodium (137-145) mmol/L Carbon Dioxide (22-30) mmol/L BUN (9-20) mg/dL Creatinine (0.66-1.25) mg/dL Glucose (74-99) mg/dL POC Glucose (mg/dL) 156 H 154 H (70-110) mg/dL Calcium (8.4-10.2) mg/dL Hiedv-9-Atghqgltc 1.26 H (0.60-1.00) d/dL Gamma Globulins 0.24 L (0.70-1.50) d/dL 02/27/23 02/28/23 02/28/23 Range/Units 20:03 04:20 04:20 RBC 2.37 L (4.30-5.90) m/uL Hgb 7.7 L (13.0-17.5) gm/dL Hct 24.3 L (39.0-53.0) % MCV 102.4 H (80.0-100.0) fL RDW 16.3 H (11.5-15.5) % Plt Count 105 L (150-450) k/uL Sodium 136 L (137-145) mmol/L Carbon Dioxide 31 H (22-30) mmol/L BUN 30 H (9-20) mg/dL Creatinine 1.87 H (0.66-1.25) mg/dL Glucose 129 H (74-99) mg/dL POC Glucose (mg/dL) 182 H (70-110) mg/dL Calcium 6.7 L (8.4-10.2) mg/dL Vzama-0-Hptwnfeve (0.60-1.00) d/dL Gamma Globulins (0.70-1.50) d/dL 02/28/23 02/28/23 Range/Units 06:39 11:11 RBC (4.30-5.90) m/uL Hgb (13.0-17.5) gm/dL Hct (39.0-53.0) % MCV (80.0-100.0) fL RDW (11.5-15.5) % Plt Count (150-450) k/uL Sodium (137-145) mmol/L Carbon Dioxide (22-30) mmol/L BUN (9-20) mg/dL Creatinine (0.66-1.25) mg/dL Glucose (74-99) mg/dL POC Glucose (mg/dL) 129 H 172 H (70-110) mg/dL Calcium (8.4-10.2) mg/dL Vvish-7-Ipyxdwuep (0.60-1.00) d/dL Gamma Globulins (0.70-1.50) d/dL Assessment and Plan Assessment: 1. Acute kidney injury, non-oliguric ATN secondary to hypotension. UA shows 3+ protein and large blood. Urine output has improved with Lasix drip. Patient was started on dialysis on 02/25/2023 2. Acute hyperkalemia associated with acute kidney injury and use of LATONIA inhib itor's in the setting of hypotension. Improvement with dialysis 3. Volume overload, maintained on Lasix drip and receiving hemodialysis. 4. Acute diastolic CHF. Ejection fraction was 55-60% on echocardiogram in September 2022. 5. Hypotension rule out underlying infection. Ejection fraction is preserved. Check cortisol level from initial blood draw as patient did receive Solu-Cortef in the ER. 6. Chronic A. fib with controlled ventricular response maintained on xarelto 7. Acute hypoxic respiratory failure secondary to CHF and volume overload Plan: Continue with Lasix drip Repeat hemodialysis today Next treatment will be on 03/02/2023 Continue to monitor for recovery of renal function and response to holding dialysis tomorrow.
--- NOTE | 2023-02-28 12:05 | PN ---
PROGRESS NOTE SUBJECTIVE: This is a 67-year-old gentleman, who is admitted to hospital with generalized anasarca. He is being dialyzed, today is the fourth time he is receiving dialysis and there has been significant improvement in his leg edema. OBJECTIVE: GENERAL: He is comfortable at rest, more alert. VITAL SIGNS: Heart rate is 73 beats per minute, blood pressure is 130/44, respiratory rate is 16. NECK: There is no jugular venous distention. Carotid upstroke is diminished. There is no bruit. CHEST: Reveals diminished air entry at the bases. HEART: Reveals first and second heart sounds. Systolic murmur at the apex. ABDOMEN: Soft. EXTREMITIES: Revealed mild edema. Peripheral pulses are felt. LABORATORY DATA: Show a hemoglobin of 7.7, platelet count is 105, potassium is 4.2, BUN is 30, creatinine is 1.87. ASSESSMENT: 1. Generalized anasarca. 2. Acute renal failure. PLAN: The patient is doing better. His echocardiogram shows normal LV function. We will continue with the dialysis and current medications including aspirin, Lipitor, and Xarelto that he had been on. MMODL / IJN: [id number] /
--- NOTE | 2023-02-28 13:02 | P.PN ---
Subjective Progress Note Date: 02/28/23 Patient is a pleasant 67-year-old male with a history of diastolic dysfunction normal ejection fraction the past came in with anasarca fluid overload and shortness of breath has been going on for about 2 weeks. Patient has significant anasarca involving the entire abdomen bilateral lower extremity is 4+ pitting pedal edema and edema of the bilateral upper extremity is. Patient has a baseline creatinine of around 1.30-1.5 present creatinine is 2.3 2. Patient is hypotensive facet of troponin is negative without any significant EKG changes. Patient does have history of atrial fibrillation presently rate controlled on atenolol which is being held at this time because of hypotension patient also has serum potassium of around 6.8 presently patient was given IV insulin and calcium gluconate. Patient is presently on norepinephrine drip, Lasix drip. Liver enzymes are within normal limits. Patient doesn't have any leukocytosis. Patient doesn't have any fever chills denied any cough with the s ignificant sputum production. 02/26/2023 Patient is seen and evaluated in follow-up this morning in the ICU with multiple medical consultations following. Patient with continued hyperkalemia maintained on Lasix drip with continued hypotension requiring emergent dialysis catheter and receiving dialysis currently. Patient is also maintained on a nonrebreather for continued shortness of breath. Patient is very lethargic although arousable but fatigues very easily. Urine output has improved slightly. at bedside with questions and concerns were answered. Patient is currently afebrile c ontinues with shortness of breath denies chest pain and is requiring some pressor support. Kidney functions as well as potassium is improved since dialysis. Overall prognosis is extremely guarded. 02/27/2023 Patient is seen in follow-up continues to be in the ICU currently receiving hemodialysis and tolerating. Continues on low-dose Levophed which is currently being weaned. Continues on Lasix drip at 10 mL's per hour with some improvement in urine output. Patient was on 15 L high flow this morning along with nasal cannula and has titrated down to 8 L high flow and recommended weaning FiO2 as tolerated. Plan is for hemodialysis daily for now and will follow-up with labs. Kidney functions are improving and BUN is 37 with a creatinine of 1.8. Hemoglobin currently stable at 8.0 most likely anemia of chronic disease. Patient is afebrile report some improvement in his shortness of breath although continues to be short of breath. Patient extremely weak and does have history of chronic back pain and was scheduled to have outpatient procedure. Patient with significant upper and lower extremity edema pitting with minimal improvement. 02/28/2023 Patient remains in intensive care unit and continues on hemodialysis currently undergoing this AM at bedside. Noted that he has chronic low back at baseline and he mostly transfers with a walker at baseline he was scheduled for a lumbar injection outpatient at [facility] but was not cleared by cardiology to go off his medications. PT/OT will be consulted. He has adequte urine output. He remains no lasix gtt. He has been weaned off vasopressors and blood pressure is stable. Patient received albumin. Chest xray from this AM has not been resulted yet. Sodium is 136, potassium 4.2, BUN 30, creatinine 1.87 which is stable. Review of systems: Constitutional: reports of fatigue, no fever, or chills Cardiovascular: No reports of chest pain or palpitations Respiratory: reports of shortness of breath with a weak cough, reports some improvement in shortness of breath and weaning FiO2 currently down to 4L nasal cannula. GI: No reports of nausea, vomiting, or diarrhea : No reports of dysuria or retention Neurovascular: reports of weakness All medications have been reviewed PHYSICAL EXAMINATION: GENERAL: The patient is lethargic and asleep although arousable but fatigues easily and falls back asleep, alert and oriented x2, not in any acute distress. Obese anasarca HEENT: Pupils are round and equally reacting to light. EOMI. No scleral icterus. No conjunctival pallor. Normocephalic, atraumatic. No pharyngeal erythema. No thyromegaly. CARDIOVASCULAR: S1 and S2 present. No murmurs, rubs, or gallops. PULMONARY: Diminished breath sounds bilaterally with some coarse rhonchi noted, faint crackles at the bases noted ABDOMEN: Soft, nontender, nondistended, normoactive bowel sounds. No palpable organomegaly. MUSCULOSKELETAL: No joint swelling or deformity. EXTREMITIES: No cyanosis, clubbing, anasarca, pitting pedal edema as mentioned above edema of the abdominal wall. NEUROLOGICAL: Gross neurological examination did not reveal any focal deficits. SKIN: Stage II pressure ulcers, pale Assessment: -Cardiogenic shock: Patient is on IV Lasix drip, patient does have diastolic dysfunction. No valve abnormalities. -Congestive heart failure, acute exacerbation with diastolic dysfunction -Acute hypoxic respiratory failure: Secondary to heart failure exacerbation. -Atrial fibrillation, paroxysmal patient is rate controlled at this time -acute kidney injury with acute tubular necrosis secondary to hypotension, improving requiring emergent dialysis -chronic kidney disease probably secondary to nephrosclerosis -Hyperkalemia secondary to acute renal failure, requiring dialysis, improving -Macrocytic anemia -Pressures ulcers stage II bilateral buttocks, present on admission -Morbid obesity with a BMI of 40.9, -possible sleep apnea, will need outpatient sleep study -hyperlipidemia history -Benign prostatic hypertrophy, patient is on tamsulosin which is being held temporally at this time because of shock but need to be resumed once his blood pressure improves as soon as possible -Bullous pemphigus has a wound in the left lower extremity, continue local wound care -Chronic low back pain -GI prophylaxis -DVT prophylaxis: On anticoagulation as mentioned above -Full code Plan: Patient continues to be in the ICU with multiple consultations following. Patient is off pressor support at this time. Vascular surgery placed emergent dialysis catheter patient is receiving hemodialysis with nephrology following Continue Lasix drip at 10 mL per hour Continue to monitor strict intake and output, renal diet Continue to wean oxygen as tolerated on 4L currently. Will need physical therapy evaluation with possible rehab on discharge and will need to discuss further down the line with nephrology if patient will be requiring outpatient dialysis Given significant comorbidities and current clinical condition, prognosis is guarded CODE STATUS was addressed with at the bedside and patient will remain full code The impression and plan of care has been dictated by Riya Welsh, Nurse Practitioner as directed. Dr. Nola MD I have performed a history and physical examination and medical decision making of this patient, discussed the same with the dictator, and agree with the dictators assessment and plan as written, documented as a scribe. Based on total visit time, I have performed more than 50% of this visit. Objective - Vital Signs Vital signs: Vital Signs Temp 98.2 F 02/28/23 08:00 Pulse 79 02/28/23 08:00 Resp 20 02/28/23 08:00 BP 122/64 02/28/23 08:00 Pulse Ox 92 L 02/28/23 08:00 FiO2 100 02/27/23 08:19 Intake & Output 08/11/1602/28/23 02/28/23 18:59 06:59 18:59 Intake Total 1612.785 603.289 50 Output Total 3135 245 80 Balance -1522.215 358.289 -30 Weight 130.4 kg Intake: IV 560 400 50 0.9% @ KVO 240 240 40 Albumin Human 25% 50 ml 200 50 In Empty Bag 1 bag @ 50 mls/hr IVPB Q8H [facility]EL Rx#: [id number] Furosemide 100 mg In 120 110 10 Sodium Chloride 0.9% 90 ml @ 10 MG/HR 10 mls/hr IV .Q10H FIDEL Rx#: [id number] Intake, IV Titration 102.785 203.289 Amount Furosemide 100 mg In 90.5 181.5 Sodium Chloride 0.9% 90 ml @ 10 MG/HR 10 mls/hr IV .Q10H [facility]EL Rx#: [id number] Norepinephrine 32 mg In 12.285 21.789 Sodium Chloride 0.9% 218 ml @ 0.03 MCG/KG/MIN 1.69 mls/hr IV .Q24H [facility]EL Rx#: [id number] Oral 450 Hemodialysis 500 Output: Urine 635 245 80 Hemodialysis 2500 Other: Voiding Method Indwelling Catheter Indwelling Catheter Indwelling Catheter ABP, PAP, CO, CI - Last Documented Arterial Blood Pressure 139/40 - Labs CBC & Chem 7: 02/28/23 04:20 02/28/23 04:20 Labs: Abnormal Lab Results - Last 24 Hours (Table) 02/25/23 02/27/23 02/27/23 Range/Units 11:30 12:05 16:24 RBC (4.30-5.90) m/uL Hgb (13.0-17.5) gm/dL Hct (39.0-53.0) % MCV (80.0-100.0) fL RDW (11.5-15.5) % Plt Count (150-450) k/uL Sodium (137-145) mmol/L Carbon Dioxide (22-30) mmol/L BUN (9-20) mg/dL Creatinine (0.66-1.25) mg/dL Glucose (74-99) mg/dL POC Glucose (mg/dL) 156 H 154 H (70-110) mg/dL Calcium (8.4-10.2) mg/dL Horuv-7-Nudzmgzlo 1.26 H (0.60-1.00) d/dL Gamma Globulins 0.24 L (0.70-1.50) d/dL 02/27/23 02/28/23 02/28/23 Range/Units 20:03 04:20 04:20 RBC 2.37 L (4.30-5.90) m/uL Hgb 7.7 L (13.0-17.5) gm/dL Hct 24.3 L (39.0-53.0) % MCV 102.4 H (80.0-100.0) fL RDW 16.3 H (11.5-15.5) % Plt Count 105 L (150-450) k/uL Sodium 136 L (137-145) mmol/L Carbon Dioxide 31 H (22-30) mmol/L BUN 30 H (9-20) mg/dL Creatinine 1.87 H (0.66-1.25) mg/dL Glucose 129 H (74-99) mg/dL POC Glucose (mg/dL) 182 H (70-110) mg/dL Calcium 6.7 L (8.4-10.2) mg/dL Gfxwh-5-Rioswyfev (0.60-1.00) d/dL Gamma Globulins (0.70-1.50) d/dL 02/28/23 Range/Units 06:39 RBC (4.30-5.90) m/uL Hgb (13.0-17.5) gm/dL Hct (39.0-53.0) % MCV (80.0-100.0) fL RDW (11.5-15.5) % Plt Count (150-450) k/uL Sodium (137-145) mmol/L Carbon Dioxide (22-30) mmol/L BUN (9-20) mg/dL Creatinine (0.66-1.25) mg/dL Glucose (74-99) mg/dL POC Glucose (mg/dL) 129 H (70-110) mg/dL Calcium (8.4-10.2) mg/dL Yfyiy-4-Vtisukhcf (0.60-1.00) d/dL Gamma Globulins (0.70-1.50) d/dL Assessment and Plan Time with Patient: Less than 30
[2023-02-28 16:50] LABS: Glucose,Whole Blood 154 mg/dL (70-110)
[2023-02-28] MEDS: NOREPINEPHRINE 32 MG in SODIUM CHLORIDE 0.9% 218 ML IV SCH (21:28)
[2023-02-28 21:30] LABS: Glucose,Whole Blood 176 mg/dL (70-110)
--- NOTE | 2023-03-01 00:02 | XR ---
EXAMINATION TYPE: XR chest 1V portable DATE OF EXAM: 02/28/2023 COMPARISON: 02/26/2023 INDICATION: Dyspnea TECHNIQUE: Single frontal view of the chest is obtained. FINDINGS: The heart size is normal. The pulmonary vasculature is normal. Small to moderate left and moderate right pleural effusions are present. Findings are increasing over the interval. Some streak atelectasis is present in the right hilar region. Left-sided PICC line has its tip in superior vena cava region IMPRESSION: 1. Increasing small to moderate left and moderate right pleural effusions with some adjacent atelecta sis.
[2023-03-01] MEDS: FUROSEMIDE 100 MG in SODIUM CHLORIDE 0.9% 90 ML IV SCH ×3 (00:16→20:46)
[2023-03-01 05:34] LABS: Glucose,Whole Blood 115 mg/dL (70-110)
[2023-03-01] MEDS: INSULIN ASPART (NovoLOG) 100 UNIT/ML VIAL SQ SCH ×4 (05:55→20:49)
[2023-03-01] MEDS: MIDODRINE 5 MG TAB PO SCH ×3 (06:11→17:06)
[2023-03-01] MEDS: ASPIRIN 81 MG PO SCH (09:25)
[2023-03-01] MEDS: RIVAROXABAN 20 MG TAB PO SCH (09:25)
[2023-03-01] MEDS: ATORVASTATIN 40 MG TAB PO SCH (09:26)
[2023-03-01] MEDS: PANTOPRAZOLE 40 MG/10 ML VIAL IVP SCH (09:52)
[2023-03-01] MEDS: CHOLECALCIFEROL 25 MCG (1000 IU) TABLET PO SCH (10:41)
[2023-03-01] MEDS: ERGOCALCIFEROL 1,250 MCG (50,000 IU) CAPSULE PO SCH (10:42)
--- NOTE | 2023-03-01 11:35 | P.PN ---
Subjective Progress Note Date: 03/01/23 I am seeing this patient in new consultation today 02/25/2023 for suspected acute exacerbation of diastolic congestive heart failure. Patient is a 67-year-old white male with past medical history significant for atrial fibrillation, hyperlipidemia, hypertension, diabetes mellitus type 2, DVT, BPH, bullous pemphigoid and chronic back pain. Patient reportedly went to his spud sorter for a scheduled stress test yesterday, and was directed to the emergency room. He has been having shortness of breath that has progressively worsened over the last couple weeks. It is especially worse on exertion, and states he can only walk approximately 5 feet. He sleeps in a recliner at home. He's had progressively worsening generalized swelling. Denies any chest pain, heart palpitations, syncope. Chest x-ray on arrival showed cardiomegaly with pulmonary vascular congestion and bilateral pleural effusions. Patient is currently sitting up in bed, on 4 L/m nasal cannula, and is fairly comfortable. He does have gross anasarca. He is pale. Blood pressure is borderline. He has been started on midodrine, and may have to be transferred to the intensive care unit for norepinephrine infusion. Last blood pressure was 90/50. ECG shows atrial fibrillation with controlled ventricular rate. Currently receiving Lasix 40 mg 3 times a day. Barkley catheter has been inserted for accurate intake and output. Patient does have a component of acute kidney injury. He was hyperkalemic, with a potassium of 6.5 on arrival, and was given 10 units of regular insulin, 1 amp D50 W, 1 amp sodium bicarb, and Lokelma. Potassium level did come down to 5.8. BMP on arrival shows sodium 138, potassium down to 5.8, chloride of 112, serum bicarbonate 24, BUN 62, creatinine 2.17, glucose 84. CBC on arrival shows a WBC count of 5.7, hemoglobin 9.5, hematocrit 30.1, platelets 230. He is anemic, and his Xarelto dose was reportedly increased for A. fib prophylaxis back in September 2022. He was found to have new onset A. fib. He denies any bloody bowel movements or melena. Echocardiogram done at that time showed a normal ejection fraction of 55-60% without any valvular abnormality. NT proBNP was elevated at 5360. As stated above, patient has been hypotensive, and may require transfer to the intensive care unit on Levophed if no improvement with midodrine. On today's evaluation of of 02/26/2023, the patient is being seen in follow-up in the intensive care unit. He had a very complicated course yesterday. Note that he continued to have issues with hyperkalemia that was unresponsive to medical treatment. The patient also continued to have difficulties and hypotension, massive fluid overload and low urine output. He was not responding adequately to the diuretics. He was on high-dose pressors and his norepinephrine at a certain stage was running as high as 0.45 mcg/kg/m. As such, it was decided to proceed with hemodialysis. His control his potassium. No ultrafiltration was done. Dialysis was completed a potassium level improved and it dropped down to 4.9 and this morning is up to 5.1. Noted the patient was having episodes of sinus bradycardia yesterday due to his hyperkalemia. His cu rrent cardiac rhythm is sinus. Rate is 65. His norepinephrine has been weaned down to 0.14 mcg/kg/m. He remains on a Lasix drip and is producing somewhere between 40-50 mL of urine output. He continues to have massive fluid overload and fluid weeping from the skin surface of his lower extremities. BUN is 44 with a creatinine of 1.9 and a sodium level is at 139 and a potassium level of 5.1. The patient was at 8.4 with a hemoglobin of 8.7. His ultrasound of the abdomen and the kidneys were done. The patient had no major abnormalities. His common bile duct measured 9 mm in size. No evidence of any hydronephrosis. His echocardiogram was also repeated yesterday and the patient was found to have left ventricular ejection fraction of 55-60%. He had mild RV dilatation. Mild pulmonary hypertension. No significant valvular abnormalities. The patient had a repeat chest x-ray today that showed bilateral pleural effusions and significant volume overload. The patient is currently on 100% nonrebreather facemask. Is arousable and is communicating and the is at the bedside. He does have a dialysis catheter in his left femoral vein. He also has a triple- lumen cath in his left subclavian vein. On today's evaluation of 02/27/2023, the patient is alert and awake and communicating. There is no significant improvement in his neurologic status since yesterday. In same time, there is improvement in volume status. The patient underwent already 2 sessions of hemodialysis and yesterday he received some ultrafiltration. The patient remains on IV albumin 12.5 g, 25%, every 8 hours and the patient is also on Lasix 10 mg an hour. Urine output is in order of 100 mL an hour. The patient has a BUN of 37 with a creatinine of 1.8. Potassium levels down to 4.4. The white cell cause of 9.1 with a hemoglobin of 8.0. His cardiac rhythm is still in nature fibrillation. His oxygenation is stable and the patient is currently on nasal cannula at 15 L. No major signs of any respiratory distress at this point. Hemoglobin is at 8.0. At the same time, the patient is on low-dose pressors and the patient is weaned off and his norepinephrine. norepinephrine is running at 0.08 mcg/kg/m. he remains on anticoagulation and he is on Xarelto . 02/28/2023, the patient is doing extremely well. He is on 4 L of oxygen by nasal cannula. He remains on Lasix drip at 10 mg an hour. Urine output is adequate. There is improvement in the edema as the patient is undergoing daily sessions of hemodialysis. He has already undergone 3 sessions of hemodialysis the last being yesterday. He is currently on 4 L O2. His off pressors. The patient's creatinine is down to 1.8 with a BUN of 30. Sodium level is at 136. White cell count of 8.0 with a hemoglobin of 7.7. Repeat chest x-ray was done this morning and shows moderate-sized bilateral pleural effusion and as such the patient continues to have some excess volume his chest. Nephrology is on the case. Pressors are off. Cardiac rhythm is atrial fibrillation. Remains on anticoagulation. 03/01/2023, patient was transferred also the ICU yesterday and the patient is currently being seen on a medical floor. He is doing well. No specific complaints. No chest pain. He continues to be on a Lasix drip at 10 mg an hour . His left is no hemodialysis was done yesterday. He is on no pressors for now. His edema is also improving although he does have some residual edema lower extremity bilaterally. He is on no pressors. Is on anticoagulation. No altered mentation. No chest pain. No other new complaints otherwise for now. Objective - Vital Signs Vital signs: Vital Signs Temp 97.5 F L 03/01/23 07:02 Pulse 91 03/01/23 07:02 Resp 20 03/01/23 07:02 BP 138/71 03/01/23 07:02 Pulse Ox 97 03/01/23 08:17 FiO2 100 02/27/23 08:19 Intake & Output 02/28/23 03/01/23 03/01/23 18:59 06:59 18:59 Intake Total 710 100 100 Output Total 3540 825 Balance -2830 -725 100 Weight 122.8 kg Intake: IV 110 0.9% @ KVO 100 Furosemide 100 mg In 10 Sodium Chloride 0.9% 90 ml @ 10 MG/HR 10 mls/hr IV .Q10H [facility] Rx#: [id number] Intake, IV Titration 100 100 100 Amount Furosemide 100 mg In 100 100 100 Sodium Chloride 0.9% 90 ml @ 10 MG/HR 10 mls/hr IV .Q10H [facility] Rx#: [id number] Hemodialysis 500 Output: Urine 140 825 Hemodialysis 3400 Other: Voiding Method Indwelling Catheter Indwelling Catheter ABP, PAP, CO, CI - Last Documented Arterial Blood Pressure 132/44 - Exam GENERAL EXAM: Alert, 67-year-old white male, who is pale and appears weak, he is fairly comfortable in no apparent distress. There is gross anasarca. Patient is currently on 4 L of oxygen by nasal cannula. Is awake and he is communicating. Breathing is nonlabored HEAD: Normocephalic and atraumatic EYES: Normal reaction of pupils, equal size. NOSE: Clear with pink turbinates. THROAT: No erythema or exudates. NECK: No masses, no JVD. CHEST: No chest wall deformity. LUNGS: Equal air entry with bibasilar inspiratory crackles. No wheeze, rhonchi or dullness. No conversational dyspnea or accessory muscle use.. CVS: S1 and S2 normal with no audible murmur, irregular rhythm. No extra heart sounds ABDOMEN: Obese abdomen, no hepatosplenomegaly, active bowel sounds, no guarding or rigidity. SPINE: No scoliosis or deformity SKIN: No rashes. Bilateral buttocks stage II pressure injuries. Do not appear infected. There is generalized ecchymosis. CENTRAL NERVOUS SYSTEM: No focal deficits, tone is normal in all 4 extremities. EXTREMITIES: There is peripheral edema pitting edema of bilateral upper and lower extremities, +1. No clubbing, or cyanosis. Peripheral pulses are intact. - Labs CBC & Chem 7: 02/28/23 04:20 02/28/23 04:20 Labs: Abnormal Lab Results - Last 24 Hours (Table) 02/28/23 02/28/23 02/28/23 Range/Units 04:20 11:11 16:47 POC Glucose (mg/dL) 172 H 154 H (70-110) mg/dL Vitamin D 25-Hydroxy 10.4 L (30.0-100.0) ng/mL 02/28/23 03/01/23 Range/Units 21:28 05:32 POC Glucose (mg/dL) 176 H 115 H (70-110) mg/dL Vitamin D 25-Hydroxy (30.0-100.0) ng/mL Assessment and Plan Assessment: Acute hypoxemic respiratory failure secondary to exacerbation of diastolic congestive heart failure. Chest x-ray on arrival shows cardiomegaly with pulmonary vascular congestion and small bilateral pleural effusions. NT proBNP was elevated at 5360. Recent echocardiogram back in September, shows left ventricular hypertrophy, with a preserved left ventricular ejection fraction of 55-60%, and no valvular abnormalities reported. The patient has a repeat echocardiogram yesterday that showed preserved LV function/diastolic failure. The patient has bilateral pleural effusion and currently is on 4 L of oxygen by nasal cannula and he continues to have bilateral pleural effusions. The patient is currently on 4 L of oxygen nasal cannula with a pulse ox of 97%. While his testicles considerably with hemodialysis/ultrafiltration and the patient remains on Lasix drip. Bilateral pleural effusions, repeat chest x-ray today shows small to moderate- sized pleural effusion bilaterally right more than left. Encephalopathy, recovered Hypotension, recovered. Atrial fibrillation with controlled ventricular rate, anticoagulated on Xarelto, rate is controlled for now Acute kidney injury, possibly cardiorenal versus ATN. Creatinine today is at 1.8, no hydronephrosis, the patient is undergoing hemodialysis with ultraf iltration and the patient is also on Lasix drip at 10 mg an hour Hyperkalemia, improved with hemodialysis. The patient also received medical management for hyperkalemia and his potassium level was refractory and as such required dialysis. The patient has multiple sessions of hemodialysis in the p otassium level is normalized. Anemia, no reported acute blood loss. Mildly macrocytic Hypoalbuminemia and gross anasarca Pressure injuries, stage II, on bilateral buttocks Hyperlipidemia BPH Obesity, with a BMI of 39 kg/m Plan: Continue Lasix drip Anticipate improvement in the pleural effusion the volume status with diuresis Hemodialysis today with ultrafiltration was done yesterday and the patient is currently on Lasix drip at 10 mg an hour Urine output adequate, the patient continues to urinate adequately. No pressors Wean down FiO2 and currently is on 4 L of oxygen nasal cannula Potassium level is improved and will monitor the levels Hemoglobin is stable Mental status is stable Echocardiogram was noted reveals another session today and will make to make it out of the ICU today okay right sounds. Ultrasound the kidneys shows no evidence of an hydronephrosis CPK levels are mildly elevated Regarding the results of serum protein electrophoresis and immunofixation Condition is more stable and the patient will be kept on a medical floor.
[2023-03-01 11:37] LABS: Glucose,Whole Blood 149 mg/dL (70-110)
--- NOTE | 2023-03-01 12:03 | P.PN ---
Subjective Patient is seen for follow-up for acute kidney injury and hyperkalemia. Hyperkalemia was persistent with the subsequent bradycardia and hypotension and patient was eventually started on dialysis on 02/25/2023. Patient has been receiving hemodialysis daily with UF of about 8 L over the last 4 days Patient remains on Lasix drip. Urine output at about 50 ML per hour. 24-hour output at 965 mL Patient is currently on 4 L via nasal cannula Mentation has improved significantly as well. Patient is transferred out of ICU. Objective - Vital Signs Vital signs: Vital Signs Temp 97.5 F L 03/01/23 07:02 Pulse 91 03/01/23 07:02 Resp 20 03/01/23 09:52 BP 138/71 03/01/23 07:02 Pulse Ox 97 03/01/23 08:17 FiO2 100 02/27/23 08:19 Intake & Output 02/28/23 03/01/23 03/01/23 18:59 06:59 18:59 Intake Total 710 100 100 Output Total 3540 825 Balance -2830 -725 100 Weight 122.8 kg Intake: IV 110 0.9% @ KVO 100 Furosemide 100 mg In 10 Sodium Chloride 0.9% 90 ml @ 10 MG/HR 10 mls/hr IV .Q10H [facility] Rx#: [id number] Intake, IV Titration 100 100 100 Amount Furosemide 100 mg In 100 100 100 Sodium Chloride 0.9% 90 ml @ 10 MG/HR 10 mls/hr IV .Q10H [facility] Rx#: [id number] Hemodialysis 500 Output: Urine 140 825 Hemodialysis 3400 Other: Voiding Method Indwelling Catheter Indwelling Catheter Indwelling Catheter ABP, PAP, CO, CI - Last Documented Arterial Blood Pressure 132/44 - Exam Patient is awake, comfortable, no acute distress, mentation has improved Examination of the heart S1 and S2 Examination lungs decreased breath sounds at the bases basal crackles are heard. 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 Acute kidney injury, non-oliguric ATN secondary to hypotension. UA shows 3+ protein and large blood. Urine output has improved with Lasix drip. Patient was started on dialysis on 02/25/2023 2. Acute hyperkalemia associated with acute kidney injury and use of LATONIA inhibitor's in the setting of hypotension. Improvement with dialysis 3. Volume overload, maintained on Lasix drip and receiving hemodialysis. 4. Acute diastolic CHF. Ejection fraction was 55-60% on echocardiogram in September 2022. 5. Hypotension rule out underlying infection. Ejection fraction is preserved. Check cortisol level from initial blood draw as patient did receive Solu-Cortef in the ER. 6. Chronic A. fib with controlled ventricular response maintained on xarelto 7. Acute hypoxic respiratory failure secondary to CHF and volume overload Plan: Continue with Lasix drip Repeat hemodialysis in a.m. due to persistent severe volume overload and then hold subsequently. Continue to monitor for recovery of renal function and response to holding dialysis tomorrow.
[2023-03-01] MEDS ORDERED: bisacodyL 5 MG TABLET.DR PO STA (12:36)
--- NOTE | 2023-03-01 12:53 | PN ---
PROGRESS NOTE SUBJECTIVE: Kamran is a 67-year-old gentleman, who is admitted to hospital with generalized anasarca and had been dialyzed with significant improvement in symptoms. He is making urine now. BUN is 30, creatinine is 1.87. OBJECTIVE: GENERAL: Comfortable at rest. VITAL SIGNS: Stable. CHEST: Reveals diminished air entry at the bases. HEART: Reveals first and second heart sounds, and a systolic murmur at the apex. ABDOMEN: Soft. EXTREMITIES: Reveal chronic stasis changes with 1+ edema. ASSESSMENT: 1. Acute diastolic heart failure. 2. Atrial fibrillation with controlled ventricular rate. 3. Acute renal failure, status post dialysis. PLAN: The patient is getting better. He will continue aspirin, Lipitor, midodrine, Xarelto, and the Lasix drip. He has had good urine output. He lost about 8 kg since admission. MMODL / IJN: [id number] /
[2023-03-01] MEDS ORDERED: bisacodyL 10 MG SUPP RECTAL STA (13:29)
[2023-03-01] MEDS: HYDROPHILIC CREAM 180 GM TUBE TOPICAL SCH (13:42)
[2023-03-01 14:25] LABS: African American GFR (CKD) 33 (>60 ml/min/1.73 sqM); Anion Gap 0 mmol/L; Blood Urea Nitrogen 27 mg/dL (9-20); Calcium 6.8 mg/dL (8.4-10.2); Carbon Dioxide 30 mmol/L (22-30); Chloride 106 mmol/L (98-107); Glucose 141 mg/dL (74-99); Magnesium 2.1 mg/dL (1.6-2.3); Non-African American GFR(CKD) 29 (>60 ml/min/1.73 sqM); Potassium 4.1 mmol/L (3.5-5.1); Sodium 136 mmol/L (137-145)
--- NOTE | 2023-03-01 16:12 | P.PN ---
Subjective Progress Note Date: 03/01/23 Patient is a pleasant 67-year-old male with a history of diastolic dysfunction normal ejection fraction the past came in with anasarca fluid overload and shortness of breath has been going on for about 2 weeks. Patient has significant anasarca involving the entire abdomen bilateral lower extremity is 4+ pitting pedal edema and edema of the bilateral upper extremity is. Patient has a baseline creatinine of around 1.30-1.5 present creatinine is 2.3 2. Patient is hypotensive facet of troponin is negative without any significant EKG changes. Patient does have history of atrial fibrillation presently rate controlled on atenolol which is being held at this time because of hypotension patient also has serum potassium of around 6.8 presently patient was given IV insulin and calcium gluconate. Patient is presently on norepinephrine drip, Lasix drip. Liver enzymes are within normal limits. Patient doesn't have any leukocytosis. Patient doesn't have any fever chills denied any cough with the s ignificant sputum production. 02/26/2023 Patient is seen and evaluated in follow-up this morning in the ICU with multiple medical consultations following. Patient with continued hyperkalemia maintained on Lasix drip with continued hypotension requiring emergent dialysis catheter and receiving dialysis currently. Patient is also maintained on a nonrebreather for continued shortness of breath. Patient is very lethargic although arousable but fatigues very easily. Urine output has improved slightly. at bedside with questions and concerns were answered. Patient is currently afebrile c ontinues with shortness of breath denies chest pain and is requiring some pressor support. Kidney functions as well as potassium is improved since dialysis. Overall prognosis is extremely guarded. 02/27/2023 Patient is seen in follow-up continues to be in the ICU currently receiving hemodialysis and tolerating. Continues on low-dose Levophed which is currently being weaned. Continues on Lasix drip at 10 mL's per hour with some improvement in urine output. Patient was on 15 L high flow this morning along with nasal cannula and has titrated down to 8 L high flow and recommended weaning FiO2 as tolerated. Plan is for hemodialysis daily for now and will follow-up with labs. Kidney functions are improving and BUN is 37 with a creatinine of 1.8. Hemoglobin currently stable at 8.0 most likely anemia of chronic disease. Patient is afebrile report some improvement in his shortness of breath although continues to be short of breath. Patient extremely weak and does have history of chronic back pain and was scheduled to have outpatient procedure. Patient with significant upper and lower extremity edema pitting with minimal improvement. 02/28/2023 Patient remains in intensive care unit and continues on hemodialysis currently undergoing this AM at bedside. Noted that he has chronic low back at baseline and he mostly transfers with a walker at baseline he was scheduled for a lumbar injection outpatient at [facility] but was not cleared by cardiology to go off his medications. PT/OT will be consulted. He has adequte urine output. He remains no lasix gtt. He has been weaned off vasopressors and blood pressure is stable. Patient received albumin. Chest xray from this AM has not been resulted yet. Sodium is 136, potassium 4.2, BUN 30, creatinine 1.87 which is stable. 03/01/2023 Patient has been moved out of the intensive care unit and is currently evaluated on the medical floor. He does have a sacral stage II pressure injury and this is causing him some discomfort. He is being repositioned and would recommend doing this every 2-3 hours. He is on a Lasix drip at 10 mL's per hour he has a urine output of 4.9 L in the last 24 hours. He continues with significant peripheral edema he has +2 pitting up to his thighs and scrotum as well as his upper extremities. His creatinine is increased up to 2.24 today. Vitamin D level found to be low at 10.4 and patient is started on oral supplementation. Review of systems: Constitutional: reports of fatigue, no fever, or chills Cardiovascular: No reports of chest pain or palpitations Respiratory: reports of shortness of breath with a weak cough, reports some improvement in shortness of breath and weaning FiO2 currently down to 4L nasal cannula. GI: No reports of nausea, vomiting, or diarrhea : No reports of dysuria or retention Neurovascular: reports of weakness All medications have been reviewed PHYSICAL EXAMINATION: GENERAL: The patient is lethargic and asleep although arousable but fatigues easily and falls back asleep, alert and oriented x2, not in any acute distress. Obese anasarca HEENT: Pupils are round and equally reacting to light. EOMI. No scleral icterus. No conjunctival pallor. Normocephalic, atraumatic. No pharyngeal erythema. No thyromegaly. CARDIOVASCULAR: S1 and S2 present. No murmurs, rubs, or gallops. PULMONARY: Diminished breath sounds bilaterally with some coarse rhonchi noted, faint crackles at the bases noted ABDOMEN: Soft, nontender, nondistended, normoactive bowel sounds. No palpable organomegaly. MUSCULOSKELETAL: No joint swelling or deformity. EXTREMITIES: No cyanosis, clubbing, anasarca, pitting pedal edema as mentioned above edema of the abdominal wall. Patient does have scrotal edema. NEUROLOGICAL: Gross neurological examination did not reveal any focal deficits. SKIN: Stage II pressure ulcers, pale Assessment: -Acute on chronic diastolic heart failure maintained on IV Lasix drip -Cardiogenic shock off pressor support and out of the ICU -Acute hypoxic respiratory failure: Secondary to heart failure exacerbation. -Atrial fibrillation, paroxysmal patient is rate controlled at this time -Acute kidney injury with acute tubular necrosis secondary to hypotension, improving requiring emergent dialysis -Chronic kidney disease probably secondary to nephrosclerosis -Hyperkalemia secondary to acute renal failure, requiring dialysis, improving -Macrocytic anemia -Pressures ulcers stage II bilateral buttocks, present on admission -Morbid obesity with a BMI of 40.9, -possible sleep apnea, will need outpatient sleep study -hyperlipidemia history -Benign prostatic hypertrophy, patient is on tamsulosin which is being held temporally at this time because of shock but need to be resumed once his blood pressure improves as soon as possible -Bullous pemphigus has a wound in the left lower extremity, continue local wound care -Chronic low back pain -GI prophylaxis -DVT prophylaxis: On anticoagulation as mentioned above -Full code Plan: Patient continues to be in the ICU with multiple consultations following. Patient is off pressor support at this time. Vascular surgery placed emergent dialysis catheter patient is receiving hemodia lysis with nephrology following Continue Lasix drip at 10 mL per hour Continue to monitor strict intake and output, renal diet Continue to wean oxygen as tolerated on 4L currently. Will need physical therapy evaluation with possible rehab on discharge and will need to discuss further down the line with nephrology if patient will be requiring outpatient dialysis Turn patient every 2-3 hours for pressure offloading continue with sacrum optifoma and local wound care to the sacral pressure injury Given significant comorbidities and current clinical condition, prognosis is guarded CODE STATUS was addressed with at the bedside and patient will remain full code The impression and plan of care has been dictated by Riya Welsh Nurse Practitioner as directed. Dr. Nola MD I have performed a history and physical examination and medical decision making of this patient, discussed the same with the dictator, and agree with the dictators assessment and plan as written, documented as a scribe. Based on total visit time, I have performed more than 50% of this visit. Objective - Vital Signs Vital signs: Vital Signs Temp 97.7 F 03/01/23 01:16 Pulse 86 03/01/23 01:16 Resp 24 03/01/23 01:16 BP 105/59 03/01/23 01:16 Pulse Ox 97 03/01/23 08:17 FiO2 100 02/27/23 08:19 Intake & Output 02/28/23 03/01/23 03/01/23 18:59 06:59 18:59 Intake Total 710 100 Output Total 3540 825 Balance -2830 -725 Weight 122.8 kg Intake: IV 110 0.9% @ KVO 100 Furosemide 100 mg In 10 Sodium Chloride 0.9% 90 ml @ 10 MG/HR 10 mls/hr IV .Q10H [facility] Rx#: [id number] Intake, IV Titration 100 100 Amount Furosemide 100 mg In 100 100 Sodium Chloride 0.9% 90 ml @ 10 MG/HR 10 mls/hr IV .Q10H [facility] Rx#: [id number] Hemodialysis 500 Output: Urine 140 825 Hemodialysis 3400 Other: Voiding Method Indwelling Catheter Indwelling Catheter ABP, PAP, CO, CI - Last Documented Arterial Blood Pressure 132/44 - Labs CBC & Chem 7: 02/28/23 04:20 03/01/23 13:15 Labs: Abnormal Lab Results - Last 24 Hours (Table) 02/28/23 02/28/23 02/28/23 Range/Units 04:20 11:11 16:47 POC Glucose (mg/dL) 172 H 154 H (70-110) mg/dL Vitamin D 25-Hydroxy 10.4 L (30.0-100.0) ng/mL 02/28/23 03/01/23 Range/Units 21:28 05:32 POC Glucose (mg/dL) 176 H 115 H (70-110) mg/dL Vitamin D 25-Hydroxy (30.0-100.0) ng/mL Assessment and Plan Time with Patient: Less than 30
[2023-03-01 16:39] LABS: Glucose,Whole Blood 222 mg/dL (70-110)
[2023-03-01] MEDS: NOREPINEPHRINE 32 MG in SODIUM CHLORIDE 0.9% 218 ML IV SCH (20:45)
[2023-03-01 20:50] LABS: Glucose,Whole Blood 130 mg/dL (70-110)
[2023-03-01] MEDS: NYSTATIN 100,000 UNIT/GM POWD 15 GM TOPICAL PRN (21:16)
[2023-03-01] MEDS: HYDROcodone/APAP 5-325MG 1 EACH TAB PO PRN (21:16)
[2023-03-02] MEDS: HYDROcodone/APAP 5-325MG 1 EACH TAB PO PRN ×4 (03:17→23:32)
[2023-03-02 05:40] LABS: Glucose,Whole Blood 115 mg/dL (70-110)
[2023-03-02] MEDS: INSULIN ASPART (NovoLOG) 100 UNIT/ML VIAL SQ SCH ×4 (05:53→21:49)
[2023-03-02] MEDS: MIDODRINE 5 MG TAB PO SCH ×3 (06:02→17:22)
[2023-03-02 06:40] LABS: African American GFR (CKD) 29 (>60 ml/min/1.73 sqM); Anion Gap 0 mmol/L; Blood Urea Nitrogen 32 mg/dL (9-20); Calcium 6.9 mg/dL (8.4-10.2); Carbon Dioxide 31 mmol/L (22-30); Chloride 109 mmol/L (98-107); Glucose 109 mg/dL (74-99); Non-African American GFR(CKD) 25 (>60 ml/min/1.73 sqM); Sodium 140 mmol/L (137-145)
[2023-03-02 06:49] LABS: Potassium 5.1 mmol/L (3.5-5.1)
[2023-03-02] MEDS: PANTOPRAZOLE 40 MG/10 ML VIAL IVP SCH (08:48)
[2023-03-02] MEDS: RIVAROXABAN 20 MG TAB PO SCH (09:36)
[2023-03-02] MEDS: ATORVASTATIN 40 MG TAB PO SCH (09:36)
[2023-03-02] MEDS: CHOLECALCIFEROL 25 MCG (1000 IU) TABLET PO SCH (09:36)
[2023-03-02] MEDS: HYDROPHILIC CREAM 180 GM TUBE TOPICAL SCH (09:37)
[2023-03-02] MEDS: ASPIRIN 81 MG PO SCH (09:37)
--- NOTE | 2023-03-02 10:26 | P.PN ---
Subjective Patient is seen in follow-up for acute kidney injury. Last hemodialysis 02/28/2023 with 3.4 L removed. Maintained on Lasix drip. Urine output doc umented as 1300 mL over last 24 hours. Hemodynamically stable. On nasal cannula. Vital signs are stable. General: No acute distress. HEENT: Head exam is unremarkable. On nasal cannula. LUNGS: No audible rhonchi or wheezes. HEART: Rate and Rhythm are regular. ABDOMEN: Soft, nontender. EXTREMITITES: 2+ edema. Objective - Vital Signs Vital signs: Vital Signs Temp 98.0 F 03/02/23 07:25 Pulse 74 03/02/23 07:25 Resp 22 03/02/23 07:25 BP 146/70 03/02/23 07:25 Pulse Ox 98 03/02/23 08:14 FiO2 100 02/27/23 08:19 Intake & Output 03/01/23 03/02/23 03/02/23 18:59 06:59 18:59 Intake Total 1180 100 Output Total 700 600 Balance 480 -500 Weight 125 kg Intake: Intake, IV Titration 100 100 Amount Furosemide 100 mg In 100 100 Sodium Chloride 0.9% 90 ml @ 10 MG/HR 10 mls/hr IV .Q10H [facility] Rx#: [id number] Oral 1080 Output: Urine 700 600 Other: Voiding Method Indwelling Catheter Indwelling Catheter # Bowel Movements 1 ABP, PAP, CO, CI - Last Documented Arterial Blood Pressure 132/44 - Labs CBC & Chem 7: 02/28/23 04:20 03/02/23 06:01 Labs: Abnormal Lab Results - Last 24 Hours (Table) 03/01/23 03/01/23 03/01/23 Range/Units 11:31 13:15 16:38 Sodium 136 L (137-145) mmol/L Chloride (98-107) mmol/L Carbon Dioxide (22-30) mmol/L BUN 27 H (9-20) mg/dL Creatinine 2.24 H (0.66-1.25) mg/dL Glucose 141 H (74-99) mg/dL POC Glucose (mg/dL) 149 H 222 H (70-110) mg/dL Calcium 6.8 L (8.4-10.2) mg/dL 03/01/23 03/02/23 03/02/23 Range/Units 20:48 05:39 06:01 Sodium (137-145) mmol/L Chloride 109 H (98-107) mmol/L Carbon Dioxide 31 H (22-30) mmol/L BUN 32 H (9-20) mg/dL Creatinine 2.54 H (0.66-1.25) mg/dL Glucose 109 H (74-99) mg/dL POC Glucose (mg/dL) 130 H 115 H (70-110) mg/dL Calcium 6.9 L (8.4-10.2) mg/dL Assessment and Plan Plan: Assessment: 1. Acute kidney injury secondary to ATN secondary to hypotension and cardiorenal syndrome. Hemodialysis started 02/25/2023. Nonoliguric. Creatinine 2.17 on admission. Creatinine is low as 1.02 dated 10/20/2022. No hydronephrosis noted on ultrasound. 2. Acute on chronic diastolic CHF. 3. Volume overload. 4. Left kidney nodule. This will need to be monitored outpatient. 5. Acute hypoxic respiratory failure. 6. Hyperkalemia secondary to acute kidney injury and LATONIA inhibitor use. Improved post dialysis. 7. Hypocalcemia secondary to hypoalbuminemia. Corrected calcium near normal. Vitamin D deficiency noted. On Drisdol. 8. Anemia. Rule out iron deficiency. Plan: Maintain Lasix drip. Hemodialysis today - plan to hold tomorrow. Monitor for renal recovery. Check PTH level. Check iron studies.
[2023-03-02 11:29] LABS: Glucose,Whole Blood 138 mg/dL (70-110)
--- NOTE | 2023-03-02 11:34 | P.PN ---
Subjective Progress Note Date: 03/02/23 History of present illness: This is a 67-year-old male presented to the hospital with generalized anasarca and has been dialyzed with significant improvement of systems symptoms. His last hemodialysis was on 02/28 with 3.4 L removed and he is scheduled for another treatment today. Patient is maintained on a Lasix drip followed closely by nephrology. Urine output has been 1300 ML's per 24 hours. The patient denies any new concerns. No chest pain. He is continued on Lipitor, aspirin, midodrine, Xarelto and Lasix drip. Physical examination: Gen: This is a 67-year-old male, resting in bed in no acute distress VS: reviewed HEENT: Head is atraumatic, normocephalic. Pupils equal, round. Sclerae is anicteric. LUNGS: Diminished breath sounds bilaterally. No intercostal retractions. HEART: Regular rate and rhythm. Systolic murmur. EXTREMITIES: 2+ pedal edema. No calf tenderness. NEUROLOGICAL: Patient is awake, alert and oriented x3. Assessment: Acute diastolic heart failure Atrial fibrillation with controlled ventricular rate Acute renal failure status post dialysis Plan: Continue current cardiac medications Cardiology will sign off this case and follow on an as-needed basis. Please reconsult for any new concerns. Patient may follow-up in the office in one to 2 weeks. Nurse practitioner note has been reviewed, I agree with documented findings and plan of care. Patient was seen and examined. Objective - Vital Signs Vital signs: Vital Signs Temp 98.0 F 03/02/23 07:25 Pulse 74 03/02/23 07:25 Resp 22 03/02/23 08:00 BP 146/70 03/02/23 07:25 Pulse Ox 98 03/02/23 08:14 FiO2 100 02/27/23 08:19 Intake & Output 03/01/23 03/02/23 03/02/23 18:59 06:59 18:59 Intake Total 1180 100 Output Total 700 600 Balance 480 -500 Weight 125 kg Intake: Intake, IV Titration 100 100 Amount Furosemide 100 mg In 100 100 Sodium Chloride 0.9% 90 ml @ 10 MG/HR 10 mls/hr IV .Q10H [facility] Rx#: [id number] Oral 1080 Output: Urine 700 600 Other: Voiding Method Indwelling Catheter Indwelling Catheter Indwelling Catheter # Bowel Movements 1 ABP, PAP, CO, CI - Last Documented Arterial Blood Pressure 132/44 - Labs CBC & Chem 7: 02/28/23 04:20 03/02/23 06:01 Labs: Abnormal Lab Results - Last 24 Hours (Table) 03/01/23 03/01/23 03/01/23 Range/Units 11:31 13:15 16:38 Sodium 136 L (137-145) mmol/L Chloride (98-107) mmol/L Carbon Dioxide (22-30) mmol/L BUN 27 H (9-20) mg/dL Creatinine 2.24 H (0.66-1.25) mg/dL Glucose 141 H (74-99) mg/dL POC Glucose (mg/dL) 149 H 222 H (70-110) mg/dL Calcium 6.8 L (8.4-10.2) mg/dL 03/01/23 03/02/23 03/02/23 Range/Units 20:48 05:39 06:01 Sodium (137-145) mmol/L Chloride 109 H (98-107) mmol/L Carbon Dioxide 31 H (22-30) mmol/L BUN 32 H (9-20) mg/dL Creatinine 2.54 H (0.66-1.25) mg/dL Glucose 109 H (74-99) mg/dL POC Glucose (mg/dL) 130 H 115 H (70-110) mg/dL Calcium 6.9 L (8.4-10.2) mg/dL
[2023-03-02] MEDS: FUROSEMIDE 100 MG in SODIUM CHLORIDE 0.9% 90 ML IV SCH ×2 (12:30→23:33)
--- NOTE | 2023-03-02 13:38 | P.PN ---
Subjective Progress Note Date: 03/02/23 I am seeing this patient in new consultation today 02/25/2023 for suspected acute exacerbation of diastolic congestive heart failure. Patient is a 67-year-old white male with past medical history significant for atrial fibrillation, hyperlipidemia, hypertension, diabetes mellitus type 2, DVT, BPH, bullous pemphigoid and chronic back pain. 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 He has been having shortness of breath that has progressively worsened over the last couple weeks. It is especially worse on exertion, and states he can only walk approximately 5 feet. He sleeps in a recliner at home. He's had progressively worsening generalized swelling. Denies any chest pain, heart palpitations, syncope. Chest x-ray on arrival showed cardiomegaly with pulmonary vascular congestion and bilateral pleural effusions. Patient is currently sitting up in bed, on 4 L/m nasal cannula, and is fairly comfortable. He does have gross anasarca. He is pale. Blood pressure is borderline. He has been started on midodrine, and may have to be transferred to the intensive care unit for norepinephrine infusion. Last blood pressure was 90/50. ECG shows atrial fibrillation with controlled ventricular rate. Currently receiving Lasix 40 mg 3 times a day. Barkley catheter has been inserted for accurate intake and output. Patient does have a component of acute kidney injury. He was hyperkalemic, with a potassium of 6.5 on arrival, and was given 10 units of regular insulin, 1 amp D50 W, 1 amp sodium bicarb, and Lokelma. Potassium level did come down to 5.8. BMP on arrival shows sodium 138, potassium down to 5.8, chloride of 112, serum bicarbonate 24, BUN 62, creatinine 2.17, glucose 84. CBC on arrival shows a WBC count of 5.7, hemoglobin 9.5, hematocrit 30.1, platelets 230. He is anemic, and his Xarelto dose was reportedly increased for A. fib prophylaxis back in September 2022. He was found to have new onset A. fib. He denies any bloody bowel movements or melena. Echocardiogram done at that time showed a normal ejection fraction of 55-60% without any valvular abnormality. NT proBNP was elevated at 5360. As stated above, patient has been hypotensive, and may require transfer to the intensive care unit on Levophed if no improvement with midodrine. On today's evaluation of of 02/26/2023, the patient is being seen in follow-up in the intensive care unit. He had a very complicated course yesterday. Note that he continued to have issues with hyperkalemia that was unresponsive to medical treatment. The patient also continued to have difficulties and hypotension, massive fluid overload and low urine output. He was not responding adequately to the diuretics. He was on high-dose pressors and his norepinephrine at a certain stage was running as high as 0.45 mcg/kg/m. As such, it was decided to proceed with hemodialysis. His control his potassium. No ultrafiltration was done. Dialysis was completed a potassium level improved and it dropped down to 4.9 and this morning is up to 5.1. Noted the patient was having episodes of sinus bradycardia yesterday due to his hyperkalemia. His cur rent cardiac rhythm is sinus. Rate is 65. His norepinephrine has been weaned down to 0.14 mcg/kg/m. He remains on a Lasix drip and is producing somewhere between 40-50 mL of urine output. He continues to have massive fluid overload and fluid weeping from the skin surface of his lower extremities. BUN is 44 with a creatinine of 1.9 and a sodium level is at 139 and a potassium level of 5.1. The patient was at 8.4 with a hemoglobin of 8.7. His ultrasound of the abdomen and the kidneys were done. The patient had no major abnormalities. His common bile duct measured 9 mm in size. No evidence of any hydronephrosis. His echocardiogram was also repeated yesterday and the patient was found to have left ventricular ejection fraction of 55-60%. He had mild RV dilatation. Mild pulmonary hypertension. No significant valvular abnormalities. The patient had a repeat chest x-ray today that showed bilateral pleural effusions and significant volume overload. The patient is currently on 100% nonrebreather facemask. Is arousable and is communicating and the is at the bedside. He does have a dialysis catheter in his left femoral vein. He also has a triple- lumen cath in his left subclavian vein. On today's evaluation of 02/27/2023, the patient is alert and awake and communicating. There is no significant improvement in his neurologic status since yesterday. In same time, there is improvement in volume status. The patient underwent already 2 sessions of hemodialysis and yesterday he received some ultrafiltration. The patient remains on IV albumin 12.5 g, 25%, every 8 hours and the patient is also on Lasix 10 mg an hour. Urine output is in order of 100 mL an hour. The patient has a BUN of 37 with a creatinine of 1.8. Potassium levels down to 4.4. The white cell cause of 9.1 with a hemoglobin of 8.0. His cardiac rhythm is still in nature fibrillation. His oxygenation is stable and the patient is currently on nasal cannula at 15 L. No major signs of any respiratory distress at this point. Hemoglobin is at 8.0. At the same time, the patient is on low-dose pressors and the patient is weaned off and his norepinephrine. norepinephrine is running at 0.08 mcg/kg/m. he remains on anticoagulation and he is on Xarelto . 02/28/2023, the patient is doing extremely well. He is on 4 L of oxygen by nasal cannula. He remains on Lasix drip at 10 mg an hour. Urine output is adequate. There is improvement in the edema as the patient is undergoing daily sessions of hemodialysis. He has already undergone 3 sessions of hemodialysis the last being yesterday. He is currently on 4 L O2. His off pressors. The patient's creatinine is down to 1.8 with a BUN of 30. Sodium level is at 136. White cell count of 8.0 with a hemoglobin of 7.7. Repeat chest x-ray was done this morning and shows moderate-sized bilateral pleural effusion and as such the patient continues to have some excess volume his chest. Nephrology is on the case. Pressors are off. Cardiac rhythm is atrial fibrillation. Remains on anticoagulation. 03/01/2023, patient was transferred also the ICU yesterday and the patient is currently being seen on a medical floor. He is doing well. No specific complaints. No chest pain. He continues to be on a Lasix drip at 10 mg an hour. His left is no hemodialysis was done yesterday. He is on no pressors for now. His edema is also improving although he does have some residual edema lower extremity bilaterally. He is on no pressors. Is on anticoagulation. No altered mentation. No chest pain. No other new complaints otherwise for now. The patient is seen today 03/02/2023 in follow-up on the regular medical floor. He is currently sitting up in bed. Awake and alert in no acute distress. He is maintaining O2 saturations in the 90s on 4 L/m per nasal cannula. He is continued on a Lasix drip at 10 mg per hour. The plan is for hemodialysis today. Urine output currently at 1300 ML's in the past 24 hours. Sodium 140. Potassium 5.1. Bicarb 31. BUN 32. Creatinine 2.54. Glucose 109. He is continued on midodrine. Pressure stable. Objective - Vital Signs Vital signs: Vital Signs Temp 98.0 F 03/02/23 07:25 Pulse 123 H 03/02/23 12:47 Resp 22 03/02/23 08:00 BP 128/63 03/02/23 12:47 Pulse Ox 98 03/02/23 08:14 FiO2 100 02/27/23 08:19 Intake & Output 03/01/23 03/02/23 03/02/23 18:59 06:59 18:59 Intake Total 1180 200 Output Total 700 600 Balance 480 -400 Weight 125 kg Intake: Intake, IV Titration 100 200 Amount Furosemide 100 mg In 100 200 Sodium Chloride 0.9% 90 ml @ 10 MG/HR 10 mls/hr IV .Q10H [facility] Rx#: [id number] Oral 1080 Output: Urine 700 600 Other: Voiding Method Indwelling Catheter Indwelling Catheter Indwelling Catheter # Bowel Movements 1 ABP, PAP, CO, CI - Last Documented Arterial Blood Pressure 132/44 - Exam GENERAL EXAM: Alert, oriented, 67-year-old male, he is fairly comfortable in no apparent distress. There is gross anasarca. Patient is currently on 4 L of oxygen by nasal cannula. HEAD: Normocephalic and atraumatic EYES: Normal reaction of pupils, equal size. NOSE: Clear with pink turbinates. THROAT: No erythema or exudates. NECK: No masses, no JVD. CHEST: No chest wall deformity. LUNGS: Equal air entry with bibasilar inspiratory crackles. No wheeze, rhonchi or dullness. No conversational dyspnea or accessory muscle use.. CVS: S1 and S2 normal with no audible murmur, irregular rhythm. No extra heart sounds ABDOMEN: Obese abdomen, no hepatosplenomegaly, active bowel sounds, no guarding or rigidity. SPINE: No scoliosis or deformity SKIN: No rashes. Bilateral buttocks stage II pressure injuries. Do not appear infected. There is generalized ecchymosis. CENTRAL NERVOUS SYSTEM: No focal deficits, tone is normal in all 4 extremities. EXTREMITIES: Left femoral hemodialysis catheter in place. There is peripheral edema pitting edema of bilateral upper and lower extremities, +1. No clubbing, or cyanosis. Peripheral pulses are intact. - Labs CBC & Chem 7: 02/28/23 04:20 03/02/23 06:01 Labs: Abnormal Lab Results - Last 24 Hours (Table) 03/01/23 03/01/23 03/01/23 Range/Units 13:15 16:38 20:48 Sodium 136 L (137-145) mmol/L Chloride (98-107) mmol/L Carbon Dioxide (22-30) mmol/L BUN 27 H (9-20) mg/dL Creatinine 2.24 H (0.66-1.25) mg/dL Glucose 141 H (74-99) mg/dL POC Glucose (mg/dL) 222 H 130 H (70-110) mg/dL Calcium 6.8 L (8.4-10.2) mg/dL 03/02/23 03/02/23 03/02/23 Range/Units 05:39 06:01 11:28 Sodium (137-145) mmol/L Chloride 109 H (98-107) mmol/L Carbon Dioxide 31 H (22-30) mmol/L BUN 32 H (9-20) mg/dL Creatinine 2.54 H (0.66-1.25) mg/dL Glucose 109 H (74-99) mg/dL POC Glucose (mg/dL) 115 H 138 H (70-110) mg/dL Calcium 6.9 L (8.4-10.2) mg/dL Assessment and Plan Assessment: Acute hypoxemic respiratory failure secondary to exacerbation of diastolic congestive heart failure. Chest x-ray on arrival shows cardiomegaly with pulmonary vascular congestion and small bilateral pleural effusions. NT proBNP was elevated at 5360. Recent echocardiogram back in September, shows left ventricular hypertrophy, with a preserved left ventricular ejection fraction of 55-60%, and no valvular abnormalities reported. The patient has bilateral pleural effusion and currently is on 4 L of oxygen by nasal cannula and he continues to have bilateral pleural effusions. Showing improvement with hemodia lysis/ultrafiltration and the patient remains on Lasix drip. Bilateral pleural effusions, repeat chest x-ray today shows small to moderate- sized pleural effusion bilaterally right more than left. Encephalopathy, recovered Hypotension, recovered. Atrial fibrillation with controlled ventricular rate, anticoagulated on Xarelto, rate is controlled for now Acute kidney injury, possibly cardiorenal versus ATN. Creatinine today is at 2.5, no hydronephrosis, the patient is undergoing hemodialysis with ultrafiltration and the patient is also on Lasix drip at 10 mg an hour Hyperkalemia, improved with hemodialysis. The patient also received medical management for hyperkalemia and his potassium level was refractory and as such required dialysis. The patient has multiple sessions of hemodialysis in the potassium level is normalized. Anemia, no reported acute blood loss. Mildly macrocytic Hypoalbuminemia and gross anasarca Pressure injuries, stage II, on bilateral buttocks Hyperlipidemia BPH Obesity, with a BMI of 39 kg/m Plan: The patient was seen and evaluated Labs and medications reviewed Currently stable on 4 L nasal cannula Titrate the FiO2 as tolerated Plan is for hemodialysis today Remains on a Lasix drip Follow-up chest x-ray in a.m. We'll continue to follow I have personally seen and examined the patient, performed the documentation and the assessment and plan as written. Number of minutes spent on the visit: 10.
--- NOTE | 2023-03-02 15:44 | P.PN ---
Subjective Progress Note Date: 03/02/23 Patient is a pleasant 67-year-old male with a history of diastolic dysfunction normal ejection fraction the past came in with anasarca fluid overload and shortness of breath has been going on for about 2 weeks. Patient has significant anasarca involving the entire abdomen bilateral lower extremity is 4 + pitting pedal edema and edema of the bilateral upper extremity is. Patient has a baseline creatinine of around 1.30-1.5 present creatinine is 2.3 2. Patient is hypotensive facet of troponin is negative without any significant EKG changes. Patient does have history of atrial fibrillation presently rate controlled on atenolol which is being held at this time because of hypotension patient also has serum potassium of around 6.8 presently patient was given IV insulin and calcium gluconate. Patient is presently on norepinephrine drip, Lasix drip. Liver enzymes are within normal limits. Patient doesn't have any leukocytosis. Patient doesn't have any fever chills denied any cough with the significant sputum production. 02/26/2023 Patient is seen and evaluated in follow-up this morning in the ICU with multiple medical consultations following. Patient with continued hyperkalemia maintained on Lasix drip with continued hypotension requiring emergent dialysis catheter and receiving dialysis currently. Patient is also maintained on a nonrebreather for continued shortness of breath. Patient is very lethargic although arousable but fatigues very easily. Urine output has improved slightly. at bedside with questions and concerns were answered. Patient is currently afebrile continues with shortness of breath denies chest pain and is requiring some pressor support. Kidney functions as well as potassium is improved since dialysis. Overall prognosis is extremely guarded. 02/27/2023 Patient is seen in follow-up continues to be in the ICU currently receiving hemodialysis and tolerating. Continues on low-dose Levophed which is currently being weaned. Continues on Lasix drip at 10 mL's per hour with some improvement in urine output. Patient was on 15 L high flow this morning along with nasal cannula and has titrated down to 8 L high flow and recommended weaning FiO2 as tolerated. Plan is for hemodialysis daily for now and will follow-up with labs. Kidney functions are improving and BUN is 37 with a creatinine of 1.8. Hemoglobin currently stable at 8.0 most likely anemia of chronic disease. Patient is afebrile report some improvement in his shortness of breath although continues to be short of breath. Patient extremely weak and does have history of chronic back pain and was scheduled to have outpatient procedure. Patient with significant upper and lower extremity edema pitting with minimal improvement. 02/28/2023 Patient remains in intensive care unit and continues on hemodialysis currently undergoing this AM at bedside. Noted that he has chronic low back at baseline and he mostly transfers with a walker at baseline he was scheduled for a lumbar injection outpatient at [facility] but was not cleared by cardiology to go off his medications. PT/OT will be consulted. He has adequte urine output. He remains no lasix gtt. He has been weaned off vasopressors and blood pressure is stable. Patient received albumin. Chest xray from this AM has not been resulted yet. Sodium is 136, potassium 4.2, BUN 30, creatinine 1.87 which is stable. 03/01/2023 Patient has been moved out of the intensive care unit and is currently evaluated on the medical floor. He does have a sacral stage II pressure injury and this is causing him some discomfort. He is being repositioned and would recommend doing this every 2-3 hours. He is on a Lasix drip at 10 mL's per hour he has a urine output of 4.9 L in the last 24 hours. He continues with significant peripheral edema he has +2 pitting up to his thighs and scrotum as well as his upper extremities. His creatinine is increased up to 2.24 today. Vitamin D level found to be low at 10.4 and patient is started on oral supplementation. 03/02/2023 Patient is seen and evaluated in follow-up today awaiting to receive dialysis today. Patient being followed by nephrology and will discuss further about outpatient dialysis as patient continues with temporary catheter. Patient remains on Lasix drip and diuresis and well and continues with significant overload. Patient with bullous pemphigus and was evaluated by wound care recommending wound care as patient also has decubitus ulcers. Will consult infectious disease and appreciate input and recommendations regarding concerns for possible underlying infection of the left forearm. Will add some IV steroids as well and monitor and recommend Accu-Cheks before meals and at bedtime and will use sliding scale as needed. Patient is currently afebrile with no reports of worsening shortness of breath or chest pains. Patient is currently maintaining good oxygen saturations above 95% on 4-6 L via nasal cannula. Review of systems: Constitutional: reports of fatigue, no fever, or chills Cardiovascular: No reports of chest pain or palpitations Respiratory: reports of shortness of breath with a weak cough, reports some improvement in shortness of breath and weaning FiO2 currently down to 5 L nasal cannula GI: No reports of nausea, vomiting, or diarrhea : No reports of dysuria or retention Neurovascular: reports of weakness All medications have been reviewed PHYSICAL EXAMINATION: GENERAL: The patient is awake, alert and oriented x2. Ill-appearing, elderly appearing, morbidly Obese, anasarca HEENT: Pupils are round and equally reacting to light. EOMI. No scleral icterus. No conjunctival pallor. Normocephalic, atraumatic. No pharyngeal erythema. No thyromegaly. CARDIOVASCULAR: S1 and S2 present. No murmurs, rubs, or gallops. PULMONARY: Diminished breath sounds bilaterally with some coarse rhonchi noted, faint crackles at the bases noted ABDOMEN: Soft, nontender, nondistended, normoactive bowel sounds. No palpable organomegaly. MUSCULOSKELETAL: No joint swelling or deformity. EXTREMITIES: No cyanosis, clubbing, anasarca, pitting pedal edema as mentioned above edema of the abdominal wall. NEUROLOGICAL: Gross neurological examination did not reveal any focal deficits. SKIN: Stage II pressure ulcers, pale Assessment: -Acute on chronic diastolic heart failure maintained on IV Lasix drip -Cardiogenic shock off pressor support and out of the ICU -Acute hypoxic respiratory failure: Secondary to heart failure exacerbation. -Atrial fibrillation, paroxysmal patient is rate controlled at this time -Acute kidney injury with acute tubular necrosis secondary to hypotension and cardiorenal syndrome, improving requiring emergent dialysis -Chronic kidney disease probably secondary to nephrosclerosis -Hyperkalemia secondary to acute renal failure, requiring dialysis, improving -Macrocytic anemia -Pressures ulcers stage II bilateral buttocks, present on admission -Morbid obesity with a BMI of 40.9, -possible sleep apnea, will need outpatient sleep study -hyperlipidemia history -Benign prostatic hypertrophy, patient is on tamsulosin which is being held temporally at this time because of shock but need to be resumed once his blood pressure improves as soon as possible -Bullous pemphigus has a wound in the left lower extremity, continue local wound care -Vitamin D deficiency -Chronic low back pain -GI prophylaxis -DVT prophylaxis: On anticoagulation as mentioned above -Full code Plan: Patient continues to be on Lasix drip with nephrology following and plan is to receive hemodialysis again today. We'll discuss further if patient will be requiring outpatient dialysis as patient continues with temporary catheter at this time Continue with renal diet and strict intake and output. Wean FiO2 as tolerated currently maintained on 5 L Recommend PT/OT therapy evaluation Oncology consulted per nephrology with abnormal lab values and pending at this time concerns of multiple myeloma Recommend turning the patient every 2-3 hours and frequent offloading of the sacral area with continued wound care Due to multiple complex medical issues, prognosis is extremely guarded and patient and family wish to remain full code The impression and plan of care has been dictated by Sandra Ayala, Nurse Practitioner as directed. Dr. Jj MD I have performed a history and examination and MDM of this patient, discussed the same with the dictator, and agree with the dictator's assessment and plan as written ,documented as a scribe. Based on total visit time, I have performed more than 50% of the visit. Objective - Vital Signs Vital signs: Vital Signs Temp 98.0 F 03/02/23 07:25 Pulse 123 H 03/02/23 12:47 Resp 22 03/02/23 08:00 BP 128/63 03/02/23 12:47 Pulse Ox 98 03/02/23 08:14 FiO2 100 02/27/23 08:19 Intake & Output 03/01/23 03/02/23 03/02/23 18:59 06:59 18:59 Intake Total 1180 200 Output Total 700 600 Balance 480 -400 Weight 125 kg Intake: Intake, IV Titration 100 200 Amount Furosemide 100 mg In 100 200 Sodium Chloride 0.9% 90 ml @ 10 MG/HR 10 mls/hr IV .Q10H [facility] Rx#: [id number] Oral 1080 Output: Urine 700 600 Other: Voiding Method Indwelling Catheter Indwelling Catheter Indwelling Catheter # Bowel Movements 1 ABP, PAP, CO, CI - Last Documented Arterial Blood Pressure 132/44 - Labs CBC & Chem 7: 02/28/23 04:20 03/02/23 06:01 Labs: Abnormal Lab Results - Last 24 Hours (Table) 03/01/23 03/01/23 03/01/23 Range/Units 13:15 16:38 20:48 Sodium 136 L (137-145) mmol/L Chloride (98-107) mmol/L Carbon Dioxide (22-30) mmol/L BUN 27 H (9-20) mg/dL Creatinine 2.24 H (0.66-1.25) mg/dL Glucose 141 H (74-99) mg/dL POC Glucose (mg/dL) 222 H 130 H (70-110) mg/dL Calcium 6.8 L (8.4-10.2) mg/dL 03/02/23 03/02/23 03/02/23 Range/Units 05:39 06:01 11:28 Sodium (137-145) mmol/L Chloride 109 H (98-107) mmol/L Carbon Dioxide 31 H (22-30) mmol/L BUN 32 H (9-20) mg/dL Creatinine 2.54 H (0.66-1.25) mg/dL Glucose 109 H (74-99) mg/dL POC Glucose (mg/dL) 115 H 138 H (70-110) mg/dL Calcium 6.9 L (8.4-10.2) mg/dL
[2023-03-02 16:20] LABS: Glucose,Whole Blood 143 mg/dL (70-110)
--- NOTE | 2023-03-02 17:23 | P.CONS ---
History of Present Illness - Reason for Consult Consult date: 03/02/23 IgG lambda on immunofixation Requesting physician: Stephan Lopez - Chief Complaint CHF - History of Present Illness Mr. 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 Patient is on his 7th day in the hospital, admitted for shortness of breath/congestive heart failure 02/24. He has a past medical history of CHF, hypertension, type 2 diabetes mellitus, bolus pemphigoid, osteoarthritis. On admit he was found to have acute kidney injury, he reports that renal failure has been ongoing for about 4 months. The patient is now on dialysis. He has been seen by Cardiology, Pulmonary, Nephrolo gy and Vascular. He denied any acute changes in his health prior to acute kidney injury, no unusual fevers, night sweats, changes in appetite, significant changes in performance status. Patient is on Xarelto for a DVT after surgery in 2007, patient had a recurrent DVT in 2016 and was told he will be on anticoagulation life long. Patient denies any personal history of cancer, he has had prostate exam, he has had colonoscopies in the past. His labs show macrocytic anemia, Creatinine elevation first noted September 2022, this is been progressive. Immunofixation shows an IgG lambda paraproteinemia but, protein electrophoresis is not identifying an M spike, IgG levels are less than 500, IgA and IgM are within normal limits. [place]/Lambda light chains are pending. Review of Systems 10 point review of systems is negative except as stated in HPI Past Medical History Past Medical History: Heart Failure, Diabetes Mellitus, Deep Vein Thrombosis (DVT), Hypertension, Osteoarthritis (OA), Prostate Disorder Additional Past Medical History / Comment(s): back pain, MRI scheduled for 10/28/22 History of Any Multi-Drug Resistant Organisms: None Reported Past Surgical History: Orthopedic Surgery Additional Past Surgical History / Comment(s): bilateral total hip replacement. 2007 .05-12-16 TOTAL RIGHT HIP REPLACEMENT. RT KNEE SX. RT SHOULDER SX. COLONOSCOPY Past Anesthesia/Blood Transfusion Reactions: No Reported Reaction Past Psychological History: No Psychological Hx Reported Smoking Status: Former smoker Past Alcohol Use History: None Reported Past Drug Use History: None Reported - Past Family History Mother Family Medical History: Cancer (Stomach cancer in her 80s), Diabetes Mellitus Father Additional Family Medical History / Comment(s): FROM SPINAL [facility]INGIT[facility] Medications and Allergies Home Medications Medication Instructions Recorded Confirmed Type atenoloL [Tenormin] 25 mg PO BID 05/08/16 02/24/23 History Alpha Lipoic Acid 1,200 mg PO BID 10/20/22 02/24/23 History Aspirin EC [Ecotrin Low Dose] 81 mg PO DAILY 10/20/22 02/24/23 History Atorvastatin [Lipitor] 40 mg PO DAILY 10/20/22 02/24/23 History Cholecalciferol [Vitamin D3 (125 125 mcg PO DAILY 10/20/22 02/24/23 History Mcg = 5000 Iu)] Magnesium 250 mg PO BID 10/20/22 02/24/23 History Tamsulosin [Flomax] 0.4 mg PO DAILY 10/20/22 02/24/23 History Calcium Carbonate [Tums] 500 mg PO TID PRN tab 10/22/22 02/24/23 Rx Rivaroxaban [Xarelto] 20 mg PO DAILY 30 Days #30 tab 10/22/22 02/24/23 Rx Furosemide [Lasix] 20 mg PO BID 02/24/23 02/24/23 History Vitamin B Complex 1 cap PO DAILY 02/24/23 02/24/23 History lisinopriL [Prinivil] 20 mg PO DAILY 02/24/23 02/24/23 History metFORMIN HCL ER [Glucophage XR] 250 mg PO DAILY 02/24/23 02/24/23 History Allergies Allergy/AdvReac Type Severity Reaction Status Date / Time Penicillins Allergy Rash/Hives Verified 02/24/23 19:24 ibuprofen AdvReac BURING Verified 02/24/23 19:24 SENSATION IN ARMS Physical Exam Vitals: Vital Signs Temp Pulse Pulse Resp BP Pulse Ox 03/02/23 08:14 98 03/02/23 08:00 22 03/02/23 07:25 98.0 F 74 22 146/70 99 03/02/23 01:06 97.9 F 85 20 125/72 96 03/01/23 19:02 98.0 F 83 24 138/72 94 L 03/01/23 17:06 83 164/74 03/01/23 13:25 98.3 F 83 18 134/69 94 L Intake and Output 03/01/23 03/02/23 03/02/23 22:59 06:59 14:59 Intake Total 1180 Output Total 200 600 Balance 980 -600 Intake: Intake, IV Titration 100 Amount Furosemide 100 mg In 100 Sodium Chloride 0.9% 90 ml @ 10 MG/HR 10 mls/hr IV .Q10H [facility] Rx#: [id number] Oral 1080 Output: Urine 200 600 Other: Voiding Method Indwelling Catheter Indwelling Catheter # Bowel Movements 1 Weight 125 kg - Constitutional General appearance: cooperative, morbidly obese, no acute distress - EENT Eyes: anicteric sclerae, EOMI ENT: hearing grossly normal - Neck Neck: no lymphadenopathy - Respiratory Respiratory: bilateral: diminished - Cardiovascular Heart sounds: normal: S1, S2 leg Peripheral Edema: bilateral: 2+ - Gastrointestinal General gastrointestinal: no absent bowel sounds, no decreased bowel sounds, no distended, no hepatomegaly, no hyperactive bowel sounds, normal bowel sounds, no organomegaly, no rigid, no scaphoid, soft, no splenomegaly, no tenderness, no umbilical hernia, no ventral hernia - Integumentary Very dry skin, Hx bolus pemphigoid, Blister on foot - Neurologic Neurologic: CNII-XII intact - Musculoskeletal Musculoskeletal: generalized weakness - Psychiatric Psychiatric: A&O x's 3, appropriate affect, intact judgment & insight Results CBC & Chem 7: 02/28/23 04:20 03/02/23 06:01 Labs: Abnormal Lab Results - Last 24 Hours (Table) 03/01/23 03/01/23 03/01/23 Range/Units 13:15 16:38 20:48 Sodium 136 L (137-145) mmol/L Chloride (98-107) mmol/L Carbon Dioxide (22-30) mmol/L BUN 27 H (9-20) mg/dL Creatinine 2.24 H (0.66-1.25) mg/dL Glucose 141 H (74-99) mg/dL POC Glucose (mg/dL) 222 H 130 H (70-110) mg/dL Calcium 6.8 L (8.4-10.2) mg/dL 03/02/23 03/02/23 03/02/23 Range/Units 05:39 06:01 11:28 Sodium (137-145) mmol/L Chloride 109 H (98-107) mmol/L Carbon Dioxide 31 H (22-30) mmol/L BUN 32 H (9-20) mg/dL Creatinine 2.54 H (0.66-1.25) mg/dL Glucose 109 H (74-99) mg/dL POC Glucose (mg/dL) 115 H 138 H (70-110) mg/dL Calcium 6.9 L (8.4-10.2) mg/dL Assessment and Plan (1) IgG lambda monoclonal gammopathy Current Visit: Yes Status: Acute Priority: High Code(s): D47.2 - MONOCLONAL GAMMOPATHY SNOMED Code(s): 74073560 Plan: IgG lambda monoclonal gammopathy -IgG lambda seen on immunofixation, protein electrophoresis no measurable quantity reported, no M spike. 24 hours Urine PEP and K/L ordered -Pending serum kappa/lambda light chains. -Unclear at this time if a paraproteinemia is the cause for [place]. Work up in process. Pt is on dialysis at this time and is making quite a bit of urine Macrocytic anemia -Iron studies and nutritional studies ordered, pending results -Transfuse for a Hgb<7
[2023-03-02 17:33] LABS: % Iron Saturation 14.58 (15.00-50.00)
[2023-03-02] MEDS: methylPREDNISolone SOD SUCCI 40 MG/ML 1 ML VIAL IV SCH ×2 (17:36→21:48)
[2023-03-02 20:56] LABS: Glucose,Whole Blood 203 mg/dL (70-110)
--- NOTE | 2023-03-02 21:33 | P.CONS ---
History of Present Illness - Reason for Consult Consult date: 03/02/23 - History of Present Illness Patient is a 67-year-old female presenting to the hospital about a week ago for evaluation of increasing swelling to the lower extremity as well as legs and abdominal area patient was eval by his digital tech and recommend the patient to be admitted to the hospital patient on presentation to the hospital has been afebrile and no fever has been recorded subsequently patient did have a normal white count during this hospital stay did have elevated creatinine urine has been negative patient did have a hyperkalemia with bradycardia and hypotension patient has been started on dialysis as of 02/25/2023 and did receive dialysis daily initially patient apparently did have bullous lesion to the left lower extremity as well as bilateral upper extremity for the patient has been evaluated by his trouble shooter in the outpatient setting and has been diagnosed with bullous pemphigoid however the patient has not been started on any treatment as his trouble shooter wants him to enroll in investigational study infectious was consulted today consulted for bolus of IV diet possible underlying cellulitis of the right arm and need for antibiotic therapy patient currently denies having any headache or URI symptoms no chest pain shortness of breath or cough patient did have some swelling to bilateral upper extremity as well as lower extremity however no significant redness open wound or any drainage or any pain patient also have significant swelling to scrotal area and evidence of cutaneous candidiasis to the groin currently being treated with nystatin powder Past Medical History Past Medical History: Heart Failure, Diabetes Mellitus, Deep Vein Thrombosis (DVT), Hypertension, Osteoarthritis (OA), Prostate Disorder Additional Past Medical History / Comment(s): back pain, MRI scheduled for 10/28/22 History of Any Multi-Drug Resistant Organisms: None Reported Past Surgical History: Orthopedic Surgery Additional Past Surgical History / Comment(s): bilateral total hip replacement. 2007 .05-12-16 TOTAL RIGHT HIP REPLACEMENT. RT KNEE SX. RT SHOULDER SX. COLONOSCOPY Past Anesthesia/Blood Transfusion Reactions: No Reported Reaction Past Psychological History: No Psychological Hx Reported Smoking Status: Former smoker Past Alcohol Use History: None Reported Past Drug Use History: None Reported - Past Family History Mother Family Medical History: Diabetes Mellitus Father Additional Family Medical History / Comment(s): FROM SP[place] [place] Medications and Allergies Home Medications Medication Instructions Recorded Confirmed Type atenoloL [Tenormin] 25 mg PO BID 05/08/16 02/24/23 History Alpha Lipoic Acid 1,200 mg PO BID 10/20/22 02/24/23 History Aspirin EC [Ecotrin Low Dose] 81 mg PO DAILY 10/20/22 02/24/23 History Atorvastatin [Lipitor] 40 mg PO DAILY 10/20/22 02/24/23 History Cholecalciferol [Vitamin D3 (125 125 mcg PO DAILY 10/20/22 02/24/23 History Mcg = 5000 Iu)] Magnesium 250 mg PO BID 10/20/22 02/24/23 History Tamsulosin [Flomax] 0.4 mg PO DAILY 10/20/22 02/24/23 History Calcium Carbonate [Tums] 500 mg PO TID PRN tab 10/22/22 02/24/23 Rx Rivaroxaban [Xarelto] 20 mg PO DAILY 30 Days #30 tab 10/22/22 02/24/23 Rx Furosemide [Lasix] 20 mg PO BID 02/24/23 02/24/23 History Vitamin B Complex 1 cap PO DAILY 02/24/23 02/24/23 History lisinopriL [Prinivil] 20 mg PO DAILY 02/24/23 02/24/23 History metFORMIN HCL ER [Glucophage XR] 250 mg PO DAILY 02/24/23 02/24/23 History Allergies Allergy/AdvReac Type Severity Reaction Status Date / Time Penicillins Allergy Rash/Hives Verified 02/24/23 19:24 ibuprofen AdvReac BURING Verified 02/24/23 19:24 SENSATION IN ARMS Physical Exam Vitals: Vital Signs Temp Pulse Resp BP Pulse Ox 03/02/23 14:45 98.0 F 104 H 22 100/62 94 L 03/02/23 12:47 123 H 128/63 03/02/23 08:14 98 03/02/23 08:00 22 03/02/23 07:25 98.0 F 74 22 146/70 99 03/02/23 01:06 97.9 F 85 20 125/72 96 03/01/23 19:02 98.0 F 83 24 138/72 94 L 03/01/23 17:06 83 164/74 Intake and Output 03/02/23 03/02/23 03/02/23 06:59 14:59 22:59 Intake Total 100 Output Total 600 Balance -500 Intake: Intake, IV Titration 100 Amount Furosemide 100 mg In 100 Sodium Chloride 0.9% 90 ml @ 10 MG/HR 10 mls/hr IV .Q10H [facility] Rx#: [id number] Output: Urine 600 Other: Voiding Method Indwelling Catheter Weight 125 kg 125 kg Results CBC & Chem 7: 02/28/23 04:20 03/02/23 06:01 Labs: Abnormal Lab Results - Last 24 Hours (Table) 03/01/23 03/01/23 03/02/23 Range/Units 16:38 20:48 05:39 Chloride (98-107) mmol/L Carbon Dioxide (22-30) mmol/L BUN (9-20) mg/dL Creatinine (0.66-1.25) mg/dL Glucose (74-99) mg/dL POC Glucose (mg/dL) 222 H 130 H 115 H (70-110) mg/dL Calcium (8.4-10.2) mg/dL 03/02/23 03/02/23 Range/Units 06:01 11:28 Chloride 109 H (98-107) mmol/L Carbon Dioxide 31 H (22-30) mmol/L BUN 32 H (9-20) mg/dL Creatinine 2.54 H (0.66-1.25) mg/dL Glucose 109 H (74-99) mg/dL POC Glucose (mg/dL) 138 H (70-110) mg/dL Calcium 6.9 L (8.4-10.2) mg/dL Assessment and Plan Plan: 1patient presented to hospital with increasing swelling to bilateral lower extremity extending all the way up to the abdominal this patient has been diagnosed with congestive heart failure fluid overload did have a significant hyperkalemia requiring initiation of dialysis with subsequent improvement in his swelling patient still has some dizziness on the bilateral upper extremity with minimal erythema more likely related to the swelling there is no significant warmth tenderness and the patient not running any fever or elevated white count and clinical of cellulitis 2-patient did have groin area cutaneous candidiasis 3-patient has been advised to elevate bilateral upper extremity and may benefit from a compression dressing 4-nystatin powder to the groin area twice a day 5-no need for systemic antibiotics We will follow on clinical condition and cultures to further adjust medication if needed Thank you for this consultation we will follow the patient along with you Dictation was produced using QBEation software. please excuse any grammatical, word or spelling errors. Time with Patient: Greater than 30
[2023-03-03 06:16] LABS: Glucose,Whole Blood 175 mg/dL (70-110)
[2023-03-03] MEDS: MIDODRINE 5 MG TAB PO SCH ×3 (06:40→17:07)
[2023-03-03] MEDS: HYDROcodone/APAP 5-325MG 1 EACH TAB PO PRN ×4 (06:40→23:57)
[2023-03-03] MEDS: INSULIN ASPART (NovoLOG) 100 UNIT/ML VIAL SQ SCH ×4 (06:41→22:06)
[2023-03-03 08:29] LABS: Anisocytosis Slight; Basophils % (A) 0 %; Eosinophils # (A) 0.2 k/uL (0-0.7); Eosinophils % (A) 1 %; HCT 26.9 % (39.0-53.0); HGB 8.7 gm/dL (13.0-17.5); Hypochromasia Marked; Lymphocytes # (A) 0.6 k/uL (1.0-4.8); Lymphocytes % (A) 5 %; MCH 32.6 pg (25.0-35.0); MCHC 32.2 g/dL (31.0-37.0); MCV 101.4 fL (80.0-100.0); Macrocytosis Slight; Mean Platelet Volume 9.1; Monocytes # (A) 0.5 k/uL (0-1.0); Monocytes % (A) 5 %; Neutrophils # (A) 9.8 k/uL (1.3-7.7); Neutrophils % (A) 88 %; Poikilocytosis Slight; RBC 2.65 m/uL (4.30-5.90); RDW 16.5 % (11.5-15.5); WBC 11.2 k/uL (3.8-10.6)
[2023-03-03 08:33] LABS: African American GFR (CKD) 24 (>60 ml/min/1.73 sqM); Anion Gap 2 mmol/L; Blood Urea Nitrogen 32 mg/dL (9-20); Calcium 6.7 mg/dL (8.4-10.2); Carbon Dioxide 28 mmol/L (22-30); Chloride 107 mmol/L (98-107); Glucose 160 mg/dL (74-99); Magnesium 2.1 mg/dL (1.6-2.3); Non-African American GFR(CKD) 21 (>60 ml/min/1.73 sqM); Potassium 5.2 mmol/L (3.5-5.1); Sodium 137 mmol/L (137-145)
[2023-03-03 08:35] LABS: Platelet Count 173 k/uL (150-450)
[2023-03-03] MEDS: PANTOPRAZOLE 40 MG/10 ML VIAL IVP SCH (08:55)
[2023-03-03] MEDS: CHOLECALCIFEROL 25 MCG (1000 IU) TABLET PO SCH (08:55)
[2023-03-03] MEDS: ATORVASTATIN 40 MG TAB PO SCH (08:55)
[2023-03-03] MEDS: methylPREDNISolone SOD SUCCI 40 MG/ML 1 ML VIAL IV SCH ×2 (08:55→22:06)
[2023-03-03] MEDS: RIVAROXABAN 20 MG TAB PO SCH (08:55)
[2023-03-03] MEDS: ASPIRIN 81 MG PO SCH (08:55)
[2023-03-03] MEDS: NYSTATIN 100,000 UNIT/GM POWD 15 GM TOPICAL PRN (08:56)
[2023-03-03] MEDS: FUROSEMIDE 100 MG in SODIUM CHLORIDE 0.9% 90 ML IV SCH (09:18)
--- NOTE | 2023-03-03 10:01 | XR ---
EXAMINATION TYPE: XR chest 1V portable DATE OF EXAM: 03/03/2023 9:56 AM COMPARISON: Chest radiographs from 02/28/2023 TECHNIQUE: XR chest 1V portable Frontal view of the chest. CLINICAL INDICATION:Male, 67 years old with history of CHF; FINDINGS: Lungs/Pleura: There is no evidence of pleural effusion, focal consolidation, or pneumothorax. Pulmonary vascularity: Unremarkable. Heart/mediastinum: Cardiomediastinal silhouette is enlarged and stable. Musculoskeletal: No acute osseous pathology. IMPRESSION: Cardiomegaly, pulmonary vascular congestion and bilateral pleural effusions. Correlate with BNP for c ongestive heart failure.
[2023-03-03 10:22] LABS: Free Kappa Lt Chain Qnt, Serum 4.52 mg/dL (0.33-1.94); Free Lambda Lt Chain Qnt, Seru 4.91 mg/dL (0.57-2.63)
[2023-03-03 11:08] LABS: Free Kappa Lt Chain Qnt, Urine 29.83 mg/dL (0.00-3.29)
[2023-03-03] MEDS: HYDROPHILIC CREAM 180 GM TUBE TOPICAL SCH (11:21)
[2023-03-03 11:33] LABS: Glucose,Whole Blood 192 mg/dL (70-110)
--- NOTE | 2023-03-03 12:04 | P.PN ---
Subjective Progress Note Date: 03/03/23 I am seeing this patient in new consultation today 02/25/2023 for suspected acute exacerbation of diastolic congestive heart failure. Patient is a 67-year-old white male with past medical history significant for atrial fibrillation, hyperlipidemia, hypertension, diabetes mellitus type 2, DVT, BPH, bullous pemphigoid and chronic back pain. 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 He has been having shortness of breath that has progressively worsened over the last couple weeks. It is especially worse on exertion, and states he can only walk approximately 5 feet. He sleeps in a recliner at home. He's had progressively worsening generalized swelling. Denies any chest pain, heart palpitations, syncope. Chest x-ray on arrival showed cardiomegaly with pulmonary vascular congestion and bilateral pleural effusions. Patient is currently sitting up in bed, on 4 L/m nasal cannula, and is fairly comfortable. He does have gross anasarca. He is pale. Blood pressure is borderline. He has been started on midodrine, and may have to be transferred to the intensive care unit for norepinephrine infusion. Last blood pressure was 90/50. ECG shows atrial fibrillation with controlled ventricular rate. Currently receiving Lasix 40 mg 3 times a day. Barkley catheter has been inserted for accurate intake and output. Patient does have a component of acute kidney injury. He was hyperkalemic, with a potassium of 6.5 on arrival, and was given 10 units of regular insulin, 1 amp D50 W, 1 amp sodium bicarb, and Lokelma. Potassium level did come down to 5.8. BMP on arrival shows sodium 138, potassium down to 5.8, chloride of 112, serum bicarbonate 24, BUN 62, creatinine 2.17, glucose 84. CBC on arrival shows a WBC count of 5.7, hemoglobin 9.5, hematocrit 30.1, platelets 230. He is anemic, and his Xarelto dose was reportedly increased for A. fib prophylaxis back in September 2022. He was found to have new onset A. fib. He denies any bloody bowel movements or melena. Echocardiogram done at that time showed a normal ejection fraction of 55-60% without any valvular abnormality. NT proBNP was elevated at 5360. As stated above, patient has been hypotensive, and may require transfer to the intensive care unit on Levophed if no improvement with midodrine. On today's evaluation of of 02/26/2023, the patient is being seen in follow-up in the intensive care unit. He had a very complicated course yesterday. Note that he continued to have issues with hyperkalemia that was unresponsive to medical treatment. The patient also continued to have difficulties and hypotension, massive fluid overload and low urine output. He was not responding adequately to the diuretics. He was on high-dose pressors and his norepinephrine at a certain stage was running as high as 0.45 mcg/kg/m. As such, it was decided to proceed with hemodialysis. His control his potassium. No ultrafiltration was done. Dialysis was completed a potassium level improved and it dropped down to 4.9 and this morning is up to 5.1. Noted the patient was having episodes of sinus bradycardia yesterday due to his hyperkalemia. His cur rent cardiac rhythm is sinus. Rate is 65. His norepinephrine has been weaned down to 0.14 mcg/kg/m. He remains on a Lasix drip and is producing somewhere between 40-50 mL of urine output. He continues to have massive fluid overload and fluid weeping from the skin surface of his lower extremities. BUN is 44 with a creatinine of 1.9 and a sodium level is at 139 and a potassium level of 5.1. The patient was at 8.4 with a hemoglobin of 8.7. His ultrasound of the abdomen and the kidneys were done. The patient had no major abnormalities. His common bile duct measured 9 mm in size. No evidence of any hydronephrosis. His echocardiogram was also repeated yesterday and the patient was found to have left ventricular ejection fraction of 55-60%. He had mild RV dilatation. Mild pulmonary hypertension. No significant valvular abnormalities. The patient had a repeat chest x-ray today that showed bilateral pleural effusions and significant volume overload. The patient is currently on 100% nonrebreather facemask. Is arousable and is communicating and the is at the bedside. He does have a dialysis catheter in his left femoral vein. He also has a triple- lumen cath in his left subclavian vein. On today's evaluation of 02/27/2023, the patient is alert and awake and communicating. There is no significant improvement in his neurologic status since yesterday. In same time, there is improvement in volume status. The patient underwent already 2 sessions of hemodialysis and yesterday he received some ultrafiltration. The patient remains on IV albumin 12.5 g, 25%, every 8 hours and the patient is also on Lasix 10 mg an hour. Urine output is in order of 100 mL an hour. The patient has a BUN of 37 with a creatinine of 1.8. Potassium levels down to 4.4. The white cell cause of 9.1 with a hemoglobin of 8.0. His cardiac rhythm is still in nature fibrillation. His oxygenation is stable and the patient is currently on nasal cannula at 15 L. No major signs of any respiratory distress at this point. Hemoglobin is at 8.0. At the same time, the patient is on low-dose pressors and the patient is weaned off and his norepinephrine. norepinephrine is running at 0.08 mcg/kg/m. he remains on anticoagulation and he is on Xarelto . 02/28/2023, the patient is doing extremely well. He is on 4 L of oxygen by nasal cannula. He remains on Lasix drip at 10 mg an hour. Urine output is adequate. There is improvement in the edema as the patient is undergoing daily sessions of hemodialysis. He has already undergone 3 sessions of hemodialysis the last being yesterday. He is currently on 4 L O2. His off pressors. The patient's creatinine is down to 1.8 with a BUN of 30. Sodium level is at 136. White cell count of 8.0 with a hemoglobin of 7.7. Repeat chest x-ray was done this morning and shows moderate-sized bilateral pleural effusion and as such the patient continues to have some excess volume his chest. Nephrology is on the case. Pressors are off. Cardiac rhythm is atrial fibrillation. Remains on anticoagulation. 03/01/2023, patient was transferred also the ICU yesterday and the patient is currently being seen on a medical floor. He is doing well. No specific complaints. No chest pain. He continues to be on a Lasix drip at 10 mg an hour. His left is no hemodialysis was done yesterday. He is on no pressors for now. His edema is also improving although he does have some residual edema lower extremity bilaterally. He is on no pressors. Is on anticoagulation. No altered mentation. No chest pain. No other new complaints otherwise for now. The patient is seen today 03/02/2023 in follow-up on the regular medical floor. He is currently sitting up in bed. Awake and alert in no acute distress. He is maintaining O2 saturations in the 90s on 4 L/m per nasal cannula. He is continued on a Lasix drip at 10 mg per hour. The plan is for hemodialysis today. Urine output currently at 1300 ML's in the past 24 hours. Sodium 140. Potassium 5.1. Bicarb 31. BUN 32. Creatinine 2.54. Glucose 109. He is continued on midodrine. Pressure stable. The patient is seen today 03/03/2023 in follow-up on the regular medical floor. He is currently sitting up in bed. Awake and alert in no acute distress. Maintaining O2 saturations in the 90s on 5 L/m per nasal cannula. Continues on a Lasix drip at 10 mg per hour. Currently in a -2.1 L balance. White count 11.2. Hemoglobin 8.7. Platelets 173. Sodium 137. Potassium 5.2. Bicarb 28. BUN 32. Creatinine 2.95. Glucose 160. He is continued on Xarelto. Objective - Vital Signs Vital signs: Vital Signs Temp 97.7 F 03/03/23 08:00 Pulse 70 03/03/23 08:00 Resp 18 03/03/23 08:00 BP 129/82 03/03/23 08:00 Pulse Ox 98 03/03/23 08:47 FiO2 100 02/27/23 08:19 Intake & Output 03/02/23 03/03/23 03/03/23 18:59 06:59 18:59 Intake Total 620 100 397.5 Output Total 2700 200 Balance -2079 - 397.5 Weight 125 kg 120.5 kg Intake: IV 120 Furosemide 100 mg In 120 Sodium Chloride 0.9% 90 ml @ 10 MG/HR 10 mls/hr IV .Q10H [facility]EL Rx#: [id number] Intake, IV Titration 100 97.5 Amount Furosemide 100 mg In 100 97.5 Sodium Chloride 0.9% 90 ml @ 10 MG/HR 10 mls/hr IV .Q10H [facility]EL Rx#: [id number] Oral 300 Hemodialysis 500 Output: Urine 200 200 Hemodialysis 2500 Other: Voiding Method Indwelling Catheter Indwelling Catheter Indwelling Catheter ABP, PAP, CO, CI - Last Documented Arterial Blood Pressure 132/44 - Exam GENERAL EXAM: Alert, oriented, 67-year-old male, he is comfortable in no apparent distress. There is gross anasarca. Patient is currently on 5 L of oxygen by nasal cannula. HEAD: Normocephalic and atraumatic EYES: Normal reaction of pupils, equal size. NOSE: Clear with pink turbinates. THROAT: No erythema or exudates. NECK: No masses, no JVD. CHEST: No chest wall deformity. LUNGS: Equal air entry with bibasilar inspiratory crackles. No wheeze, rhonchi or dullness. No conversational dyspnea or accessory muscle use.. CVS: S1 and S2 normal with no audible murmur, irregular rhythm. No extra heart sounds ABDOMEN: Obese abdomen, no hepatosplenomegaly, active bowel sounds, no guarding or rigidity. SPINE: No scoliosis or deformity SKIN: No rashes. Bilateral buttocks stage II pressure injuries. Do not appear infected. There is generalized ecchymosis. CENTRAL NERVOUS SYSTEM: No focal deficits, tone is normal in all 4 extremities. EXTREMITIES: Left femoral hemodialysis catheter in place. There is peripheral edema pitting edema of bilateral upper and lower extremities, +1. No clubbing, or cyanosis. Peripheral pulses are intact. - Labs CBC & Chem 7: 03/03/23 07:26 03/03/23 07:26 Labs: Abnormal Lab Results - Last 24 Hours (Table) 02/28/23 03/02/23 03/02/23 Range/Units 13:15 06:01 16:19 WBC (3.8-10.6) k/uL RBC (4.30-5.90) m/uL Hgb (13.0-17.5) gm/dL Hct (39.0-53.0) % MCV (80.0-100.0) fL RDW (11.5-15.5) % Neutrophils # (1.3-7.7) k/uL Lymphocytes # (1.0-4.8) k/uL Potassium (3.5-5.1) mmol/L BUN (9-20) mg/dL Creatinine (0.66-1.25) mg/dL Glucose (74-99) mg/dL POC Glucose (mg/dL) 143 H (70-110) mg/dL Calcium (8.4-10.2) mg/dL Iron 21 L (65-175) UG/DL TIBC 144 L (228-460) UG/DL % Saturation 14.58 L (15.00-50.00) Transferrin 103.0 L (204.0-354.0) mg/dL U Free [place] Light Ch (0.00-3.29) mg/dL Free [place] LC, Quant 4.52 H (0.33-1.94) mg/dL Free [place] LC, Quant 4.91 H (0.57-2.63) mg/dL 03/02/23 03/02/23 03/03/23 Range/Units 20:55 21:09 06:14 WBC (3.8-10.6) k/uL RBC (4.30-5.90) m/uL Hgb (13.0-17.5) gm/dL Hct (39.0-53.0) % MCV (80.0-100.0) fL RDW (11.5-15.5) % Neutrophils # (1.3-7.7) k/uL Lymphocytes # (1.0-4.8) k/uL Potassium (3.5-5.1) mmol/L BUN (9-20) mg/dL Creatinine (0.66-1.25) mg/dL Glucose (74-99) mg/dL POC Glucose (mg/dL) 203 H 175 H (70-110) mg/dL Calcium (8.4-10.2) mg/dL Iron (65-175) UG/DL TIBC (228-460) UG/DL % Saturation (15.00-50.00) Transferrin (204.0-354.0) mg/dL U Free [place] Light Ch 29.83 H (0.00-3.29) mg/dL Free [place] LC, Quant (0.33-1.94) mg/dL Free Lambda LC, Quant (0.57-2.63) mg/dL 03/03/23 03/03/23 03/03/23 Range/Units 07:26 07:26 11:31 WBC 11.2 H (3.8-10.6) k/uL RBC 2.65 L (4.30-5.90) m/uL Hgb 8.7 L (13.0-17.5) gm/dL Hct 26.9 L (39.0-53.0) % MCV 101.4 H (80.0-100.0) fL RDW 16.5 H (11.5-15.5) % Neutrophils # 9.8 H (1.3-7.7) k/uL Lymphocytes # 0.6 L (1.0-4.8) k/uL Potassium 5.2 H (3.5-5.1) mmol/L BUN 32 H (9-20) mg/dL Creatinine 2.95 H (0.66-1.25) mg/dL Glucose 160 H (74-99) mg/dL POC Glucose (mg/dL) 192 H (70-110) mg/dL Calcium 6.7 L (8.4-10.2) mg/dL Iron (65-175) UG/DL TIBC (228-460) UG/DL % Saturation (15.00-50.00) Transferrin (204.0-354.0) mg/dL U Free [place] Light Ch (0.00-3.29) mg/dL Free [place] LC, Quant (0.33-1.94) mg/dL Free Lambda LC, Quant (0.57-2.63) mg/dL Assessment and Plan Assessment: Acute hypoxemic respiratory failure secondary to exacerbation of diastolic congestive heart failure. Chest x-ray on arrival shows cardiomegaly with pulmonary vascular congestion and small bilateral pleural effusions. NT proBNP was elevated at 5360. Recent echocardiogram back in September, shows left ventricular hypertrophy, with a preserved left ventricular ejection fraction of 55-60%, and no valvular abnormalities reported. The patient has bilateral pleural effusion and currently is on 4 L of oxygen by nasal cannula and he continues to have bilateral pleural effusions. Showing improvement with hemodialysis/ultrafiltration and the patient remains on Lasix drip. Bilateral pleural effusions, repeat chest x-ray today shows small to moderate-s ized pleural effusion bilaterally right more than left. Encephalopathy, recovered Hypotension, recovered. Atrial fibrillation with controlled ventricular rate, anticoagulated on Xarelto, rate is controlled for now Acute kidney injury, possibly cardiorenal versus ATN. Creatinine today is at 2.5, no hydronephrosis, the patient is undergoing hemodialysis with ultrafiltration and the patient is also on Lasix drip at 10 mg an hour Hyperkalemia, improved with hemodialysis. The patient also received medical management for hyperkalemia and his potassium level was refractory and as such required dialysis. The patient has multiple sessions of hemodialysis in the potassium level is normalized. Anemia, no reported acute blood loss. Mildly macrocytic Hypoalbuminemia and gross anasarca Pressure injuries, stage II, on bilateral buttocks Hyperlipidemia BPH Obesity, with a BMI of 39 kg/m Plan: The patient was seen and evaluated Chest x-ray, labs and medications reviewed Currently stable on 5 L nasal cannula Titrate the FiO2 as tolerated Decrease Lasix drip to 5 mg per hour Follow-up labs in a.m. We'll continue to follow I have personally seen and examined the patient, performed the documentation and the assessment and plan as written. Number of minutes spent on the visit: 10.
--- NOTE | 2023-03-03 12:05 | P.PN ---
Subjective Patient is seen in follow-up for acute kidney injury. Maintained on Lasix drip. Urine output only 200 mL so far today. Still quite edematous. Hemodynamically stable. Sitting up in chair. Vital signs are stable. General: No acute distress. HEENT: Head exam is unremarkable. On nasal cannula. LUNGS: No audible rhonchi or wheezes. HEART: Rate and Rhythm are regular. ABDOMEN: Soft, nontender. EXTREMITITES: 2+ edema. Objective - Vital Signs Vital signs: Vital Signs Temp 97.7 F 03/03/23 08:00 Pulse 70 03/03/23 08:00 Resp 18 03/03/23 08:00 BP 129/82 03/03/23 08:00 Pulse Ox 98 03/03/23 08:47 FiO2 100 02/27/23 08:19 Intake & Output 03/02/23 03/03/23 03/03/23 18:59 06:59 18:59 Intake Total 620 100 397.5 Output Total 2700 200 Balance -2080 -100 397.5 Weight 125 kg 120.5 kg Intake: IV 120 Furosemide 100 mg In 120 Sodium Chloride 0.9% 90 ml @ 10 MG/HR 10 mls/hr IV .Q10H [facility] Rx#: [id number] Intake, IV Titration 100 97.5 Amount Furosemide 100 mg In 100 97.5 Sodium Chloride 0.9% 90 ml @ 10 MG/HR 10 mls/hr IV .Q10H [facility]EL Rx#: [id number] Oral 300 Hemodialysis 500 Output: Urine 200 200 Hemodialysis 2500 Other: Voiding Method Indwelling Catheter Indwelling Catheter Indwelling Catheter ABP, PAP, CO, CI - Last Documented Arterial Blood Pressure 132/44 - Labs CBC & Chem 7: 03/03/23 07:26 03/03/23 07:26 Labs: Abnormal Lab Results - Last 24 Hours (Table) 02/28/23 03/02/23 03/02/23 Range/Units 13:15 06:01 16:19 WBC (3.8-10.6) k/uL RBC (4.30-5.90) m/uL Hgb (13.0-17.5) gm/dL Hct (39.0-53.0) % MCV (80.0-100.0) fL RDW (11.5-15.5) % Neutrophils # (1.3-7.7) k/uL Lymphocytes # (1.0-4.8) k/uL Potassium (3.5-5.1) mmol/L BUN (9-20) mg/dL Creatinine (0.66-1.25) mg/dL Glucose (74-99) mg/dL POC Glucose (mg/dL) 143 H (70-110) mg/dL Calcium (8.4-10.2) mg/dL Iron 21 L (65-175) UG/DL TIBC 144 L (228-460) UG/DL % Saturation 14.58 L (15.00-50.00) Transferrin 103.0 L (204.0-354.0) mg/dL U Free [place] Light Ch (0.00-3.29) mg/dL Free [place] LC, Quant 4.52 H (0.33-1.94) mg/dL Free Lambda LC, Quant 4.91 H (0.57-2.63) mg/dL 03/02/23 03/02/23 03/03/23 Range/Units 20:55 21:09 06:14 WBC (3.8-10.6) k/uL RBC (4.30-5.90) m/uL Hgb (13.0-17.5) gm/dL Hct (39.0-53.0) % MCV (80.0-100.0) fL RDW (11.5-15.5) % Neutrophils # (1.3-7.7) k/uL Lymphocytes # (1.0-4.8) k/uL Potassium (3.5-5.1) mmol/L BUN (9-20) mg/dL Creatinine (0.66-1.25) mg/dL Glucose (74-99) mg/dL POC Glucose (mg/dL) 203 H 175 H (70-110) mg/dL Calcium (8.4-10.2) mg/dL Iron (65-175) UG/DL TIBC (228-460) UG/DL % Saturation (15.00-50.00) Transferrin (204.0-354.0) mg/dL U Free [place] Light Ch 29.83 H (0.00-3.29) mg/dL Free [place] LC, Quant (0.33-1.94) mg/dL Free Lambda LC, Quant (0.57-2.63) mg/dL 03/03/23 03/03/23 03/03/23 Range/Units 07:26 07:26 11:31 WBC 11.2 H (3.8-10.6) k/uL RBC 2.65 L (4.30-5.90) m/uL Hgb 8.7 L (13.0-17.5) gm/dL Hct 26.9 L (39.0-53.0) % MCV 101.4 H (80.0-100.0) fL RDW 16.5 H (11.5-15.5) % Neutrophils # 9.8 H (1.3-7.7) k/uL Lymphocytes # 0.6 L (1.0-4.8) k/uL Potassium 5.2 H (3.5-5.1) mmol/L BUN 32 H (9-20) mg/dL Creatinine 2.95 H (0.66-1.25) mg/dL Glucose 160 H (74-99) mg/dL POC Glucose (mg/dL) 192 H (70-110) mg/dL Calcium 6.7 L (8.4-10.2) mg/dL Iron (65-175) UG/DL TIBC (228-460) UG/DL % Saturation (15.00-50.00) Transferrin (204.0-354.0) mg/dL U Free [place] Light Ch (0.00-3.29) mg/dL Free [place] LC, Quant (0.33-1.94) mg/dL Free Lambda LC, Quant (0.57-2.63) mg/dL Assessment and Plan Plan: Assessment: 1. Acute kidney injury secondary to ATN secondary to hypotension and cardiorenal syndrome. Hemodialysis started 02/25/2023. Creatinine as low as 1.02 dated 10/20/2022. No hydronephrosis noted on ultrasound. 2. Acute on chronic diastolic CHF. 3. Volume overload. 4. Left kidney nodule. This will need to be monitored outpatient. 5. Acute hypoxic respiratory failure. 6. Hyperkalemia secondary to acute kidney injury and LATONIA inhibitor use. Improved post dialysis. 7. Hypocalcemia secondary to hypoalbuminemia. Corrected calcium near normal. Vitamin D deficiency noted. On Drisdol. 8. Anemia. Iron deficiency noted. 9. 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 Hematology following. Plan: Stop Lasix drip. Add IV Lasix 80 mg twice daily. Add metolazone 5 mg once daily. Plan for UF only today. Monitor for renal recovery. Follow-up PTH level. Add IV iron. Check phosphorus level. If no significant improvement and urine output, will need a permacath.
[2023-03-03] MEDS: SODIUM FERRIC GLUCONAT-SUCROSE 125 MG in SODIUM CHLORIDE 0.9% 100 ML IVPB SCH (13:52)
[2023-03-03] MEDS: FUROSEMIDE 10 MG/ML 10 ML VIAL IV SCH ×2 (13:52→22:06)
--- NOTE | 2023-03-03 15:07 | P.PN ---
Subjective Progress Note Date: 03/03/23 Principal diagnosis: IgG lambda on immunofixation In follow-up today patient is sitting In chair, remains severely edematous, On 6 L nasal cannula, he denies being oxygen at home. Denies any fevers, he does not exert himself too much secondary to weakness and shortness of breath Objective - Vital Signs Vital signs: Vital Signs Temp 97.7 F 03/03/23 08:00 Pulse 70 03/03/23 08:00 Resp 18 03/03/23 08:00 BP 129/82 03/03/23 08:00 Pulse Ox 98 03/03/23 08:47 FiO2 100 02/27/23 08:19 Intake & Output 03/02/23 03/03/23 03/03/23 18:59 06:59 18:59 Intake Total 620 100 517.5 Output Total 2700 200 Balance -2080 -100 517.5 Weight 125 kg 120.5 kg Intake: IV 120 Furosemide 100 mg In 120 Sodium Chloride 0.9% 90 ml @ 5 MG/HR 5 mls/hr IV .Q20H [facility] Rx#:[id number] Intake, IV Titration 100 97.5 Amount Furosemide 100 mg In 100 97.5 Sodium Chloride 0.9% 90 ml @ 5 MG/HR 5 mls/hr IV .Q20H [facility] Rx#:[id number] Oral 420 Hemodialysis 500 Output: Urine 200 200 Hemodialysis 2500 Other: Voiding Method Indwelling Catheter Indwelling Catheter Indwelling Catheter # Bowel Movements 1 ABP, PAP, CO, CI - Last Documented Arterial Blood Pressure 132/44 - Constitutional General appearance: Present: cooperative, mild distress, obese - EENT Eyes: Present: anicteric sclerae, EOMI ENT: Present: hearing grossly normal - Respiratory Details: Respirations mildly labored at rest - Cardiovascular Details: Anasarca, moderate/severe - Neurologic Neurologic: Present: CNII-XII intact (Grossly) - Musculoskeletal Musculoskeletal: Present: generalized weakness - Psychiatric Psychiatric: Present: A&O x's 3, appropriate affect, intact judgment & insight - Labs CBC & Chem 7: 03/03/23 07:26 03/03/23 07:26 Labs: Abnormal Lab Results - Last 24 Hours (Table) 02/28/23 03/02/23 03/02/23 Range/Units 13:15 06:01 16:19 WBC (3.8-10.6) k/uL RBC (4.30-5.90) m/uL Hgb (13.0-17.5) gm/dL Hct (39.0-53.0) % MCV (80.0-100.0) fL RDW (11.5-15.5) % Neutrophils # (1.3-7.7) k/uL Lymphocytes # (1.0-4.8) k/uL Potassium (3.5-5.1) mmol/L BUN (9-20) mg/dL Creatinine (0.66-1.25) mg/dL Glucose (74-99) mg/dL POC Glucose (mg/dL) 143 H (70-110) mg/dL Calcium (8.4-10.2) mg/dL Iron 21 L (65-175) UG/DL TIBC 144 L (228-460) UG/DL % Saturation 14.58 L (15.00-50.00) Transferrin 103.0 L (204.0-354.0) mg/dL PTH Intact (14.0-72.0) pg/mL U Free [place] Light Ch (0.00-3.29) mg/dL Free [place] LC, Quant 4.52 H (0.33-1.94) mg/dL Free Lambda LC, Quant 4.91 H (0.57-2.63) mg/dL 03/02/23 03/02/23 03/03/23 Range/Units 20:55 21:09 06:14 WBC (3.8-10.6) k/uL RBC (4.30-5.90) m/uL Hgb (13.0-17.5) gm/dL Hct (39.0-53.0) % MCV (80.0-100.0) fL RDW (11.5-15.5) % Neutrophils # (1.3-7.7) k/uL Lymphocytes # (1.0-4.8) k/uL Potassium (3.5-5.1) mmol/L BUN (9-20) mg/dL Creatinine (0.66-1.25) mg/dL Glucose (74-99) mg/dL POC Glucose (mg/dL) 203 H 175 H (70-110) mg/dL Calcium (8.4-10.2) mg/dL Iron (65-175) UG/DL TIBC (228-460) UG/DL % Saturation (15.00-50.00) Transferrin (204.0-354.0) mg/dL PTH Intact (14.0-72.0) pg/mL U Free [place] Light Ch 29.83 H (0.00-3.29) mg/dL Free [place] LC, Quant (0.33-1.94) mg/dL Free [place]ambda LC, Quant (0.57-2.63) mg/dL 03/03/23 03/03/23 03/03/23 Range/Units 07:26 07:26 07:26 WBC 11.2 H (3.8-10.6) k/uL RBC 2.65 L (4.30-5.90) m/uL Hgb 8.7 L (13.0-17.5) gm/dL Hct 26.9 L (39.0-53.0) % MCV 101.4 H (80.0-100.0) fL RDW 16.5 H (11.5-15.5) % Neutrophils # 9.8 H (1.3-7.7) k/uL Lymphocytes # 0.6 L (1.0-4.8) k/uL Potassium 5.2 H (3.5-5.1) mmol/L BUN 32 H (9-20) mg/dL Creatinine 2.95 H (0.66-1.25) mg/dL Glucose 160 H (74-99) mg/dL POC Glucose (mg/dL) (70-110) mg/dL Calcium 6.7 L (8.4-10.2) mg/dL Iron (65-175) UG/DL TIBC (228-460) UG/DL % Saturation (15.00-50.00) Transferrin (204.0-354.0) mg/dL PTH Intact 139.0 H (14.0-72.0) pg/mL U Free [place] Light Ch (0.00-3.29) mg/dL Free [place] LC, Quant (0.33-1.94) mg/dL Free [place]ambda LC, Quant (0.57-2.63) mg/dL 03/03/23 Range/Units 11:31 WBC (3.8-10.6) k/uL RBC (4.30-5.90) m/uL Hgb (13.0-17.5) gm/dL Hct (39.0-53.0) % MCV (80.0-100.0) fL RDW (11.5-15.5) % Neutrophils # (1.3-7.7) k/uL Lymphocytes # (1.0-4.8) k/uL Potassium (3.5-5.1) mmol/L BUN (9-20) mg/dL Creatinine (0.66-1.25) mg/dL Glucose (74-99) mg/dL POC Glucose (mg/dL) 192 H (70-110) mg/dL Calcium (8.4-10.2) mg/dL Iron (65-175) UG/DL TIBC (228-460) UG/DL % Saturation (15.00-50.00) Transferrin (204.0-354.0) mg/dL PTH Intact (14.0-72.0) pg/mL U Free [place] Light Ch (0.00-3.29) mg/dL Free [place] LC, Quant (0.33-1.94) mg/dL Free [place] LC, Quant (0.57-2.63) mg/dL - Imaging and Cardiology Chest x-ray: report reviewed Assessment and Plan (1) IgG lambda monoclonal gammopathy Current Visit: Yes Status: Acute Priority: High Code(s): D47.2 - M ONOCLONAL GAMMOPATHY SNOMED Code(s): 88526365 Plan: IgG lambda monoclonal gammopathy -IgG lambda seen on immunofixation, protein electrophoresis no measurable quantity reported, no M spike. 24 hours Urine PEP and K/L ordered, Being collected, pending results -Pending serum kappa/lambda light chains. -Unclear at this time if a paraproteinemia is the cause for LAVERNE. Work up in process. Pt is on dialysis at this time and is still making quite a bit of urine Macrocytic anemia -Iron studies show a low saturation, ferritin 161. Would anticipate ferritin to be elevated because of comorbid conditions. With low saturation and normal ferr itin of 161 patient is likely iron deficient. Nephrology has ordered parenteral iron. -Transfuse for a Hgb<7 On lasix per Neph
--- NOTE | 2023-03-03 15:19 | P.PN ---
Subjective Progress Note Date: 03/03/23 Patient is a pleasant 67-year-old male with a history of diastolic dysfunction normal ejection fraction the past came in with anasarca fluid overload and shortness of breath has been going on for about 2 weeks. Patient has significant anasarca involving the entire abdomen bilateral lower extremity is 4 + pitting pedal edema and edema of the bilateral upper extremity is. Patient has a baseline creatinine of around 1.30-1.5 present creatinine is 2.3 2. Patient is hypotensive facet of troponin is negative without any significant EKG changes. Patient does have history of atrial fibrillation presently rate controlled on atenolol which is being held at this time because of hypotension patient also has serum potassium of around 6.8 presently patient was given IV insulin and calcium gluconate. Patient is presently on norepinephrine drip, Lasix drip. Liver enzymes are within normal limits. Patient doesn't have any leukocytosis. Patient doesn't have any fever chills denied any cough with the significant sputum production. 02/26/2023 Patient is seen and evaluated in follow-up this morning in the ICU with multiple medical consultations following. Patient with continued hyperkalemia maintained on Lasix drip with continued hypotension requiring emergent dialysis catheter and receiving dialysis currently. Patient is also maintained on a nonrebreather for continued shortness of breath. Patient is very lethargic although arousable but fatigues very easily. Urine output has improved slightly. at bedside with questions and concerns were answered. Patient is currently afebrile continues with shortness of breath denies chest pain and is requiring some pressor support. Kidney functions as well as potassium is improved since dialysis. Overall prognosis is extremely guarded. 02/27/2023 Patient is seen in follow-up continues to be in the ICU currently receiving hemodialysis and tolerating. Continues on low-dose Levophed which is currently being weaned. Continues on Lasix drip at 10 mL's per hour with some improvement in urine output. Patient was on 15 L high flow this morning along with nasal cannula and has titrated down to 8 L high flow and recommended weaning FiO2 as tolerated. Plan is for hemodialysis daily for now and will follow-up with labs. Kidney functions are improving and BUN is 37 with a creatinine of 1.8. Hemoglobin currently stable at 8.0 most likely anemia of chronic disease. Patient is afebrile report some improvement in his shortness of breath although continues to be short of breath. Patient extremely weak and does have history of chronic back pain and was scheduled to have outpatient procedure. Patient with significant upper and lower extremity edema pitting with minimal improvement. 02/28/2023 Patient remains in intensive care unit and continues on hemodialysis currently undergoing this AM at bedside. Noted that he has chronic low back at baseline and he mostly transfers with a walker at baseline he was scheduled for a lumbar injection outpatient at [facility] but was not cleared by cardiology to go off his medications. PT/OT will be consulted. He has adequte urine output. He remains no lasix gtt. He has been weaned off vasopressors and blood pressure is stable. Patient received albumin. Chest xray from this AM has not been resulted yet. Sodium is 136, potassium 4.2, BUN 30, creatinine 1.87 which is stable. 03/01/2023 Patient has been moved out of the intensive care unit and is currently evaluated on the medical floor. He does have a sacral stage II pressure injury and this is causing him some discomfort. He is being repositioned and would recommend doing this every 2-3 hours. He is on a Lasix drip at 10 mL's per hour he has a urine output of 4.9 L in the last 24 hours. He continues with significant peripheral edema he has +2 pitting up to his thighs and scrotum as well as his upper extremities. His creatinine is increased up to 2.24 today. Vitamin D level found to be low at 10.4 and patient is started on oral supplementation. 03/02/2023 Patient is seen and evaluated in follow-up today awaiting to receive dialysis today. Patient being followed by nephrology and will discuss further about outpatient dialysis as patient continues with temporary catheter. Patient remains on Lasix drip and diuresis and well and continues with significant overload. Patient with bullous pemphigus and was evaluated by wound care recommending wound care as patient also has decubitus ulcers. Will consult infectious disease and appreciate input and recommendations regarding concerns for possible underlying infection of the left forearm. Will add some IV steroids as well and monitor and recommend Accu-Cheks before meals and at bedtime and will use sliding scale as needed. Patient is currently afebrile with no reports of worsening shortness of breath or chest pains. Patient is currently maintaining good oxygen saturations above 95% on 4-6 L via nasal cannula. 03/03/2023 Patient is seen and evaluated today with multiple consultations following. Hematology/Oncology consulted and has ordered 24-hour urine along with additional testing which is pending. Patient is maintained on Lasix 80 mg IV push twice daily and metolazone being ordered. Patient continues with significant volume overload with no plans of dialysis today. Patient continues with temporary dialysis catheter and will need to discuss further with nephrology if patient will require permanent dialysis catheter and outpatient hemodialysis to be arranged. Patient with some weakness and recommend physical therapy evaluation daily. Patient also continued on local wound care of the buttocks area and has history of bullous pemphigus and infectious disease consulted. Patient started on low-dose IV steroids and will continue with Accu- Cheks before meals and at bedtime and monitor for some improvement. Hemoglobin is stable at 8.7 and platelets are 173. Sodium is 137 with a potassium of 5.2, BUN is 32 with a creatinine of 2.95, magnesium is 2.1. Patient is currently afebrile with no reports of chest pain or worsening shortness of breath. Patient is diuresing and currently maintained on 5 L via nasal cannula with an oxygen saturation of 98%. Recommend weaning FiO2 as tolerated as patient does not normally wear oxygen outpatient. Review of systems: Constitutional: no reports of fatigue, no fever, or chills Cardiovascular: No reports of chest pain or palpitations Respiratory: reports of shortness of breath and reports some improvement in shortness of breath and weaning FiO2 currently down to 2-5 L nasal cannula GI: No reports of nausea, vomiting, or diarrhea : No reports of dysuria or retention Neurovascular: reports of weakness All medications have been reviewed PHYSICAL EXAMINATION: GENERAL: The patient is awake, alert and oriented x2. Ill-appearing, elderly appearing, morbidly Obese, anasarca HEENT: Pupils are round and equally reacting to light. EOMI. No scleral icterus. No conjunctival pallor. Normocephalic, atraumatic. No pharyngeal erythema. No thyromegaly. CARDIOVASCULAR: S1 and S2 present. No murmurs, rubs, or gallops. PULMONARY: Diminished breath sounds bilaterally with some coarse rhonchi noted, faint crackles at the bases noted ABDOMEN: Soft, nontender, nondistended, normoactive bowel sounds. No palpable organomegaly. MUSCULOSKELETAL: No joint swelling or deformity. EXTREMITIES: No cyanosis, clubbing, anasarca, pitting pedal edema as mentioned above edema of the abdominal wall. NEUROLOGICAL: Gross neurological examination did not reveal any focal deficits. SKIN: Stage II pressure ulcers, pale Assessment: -Acute on chronic diastolic heart failure maintained on IV Lasix -Cardiogenic shock off pressor support and out of the ICU -Acute hypoxic respiratory failure: Secondary to heart failure exacerbation. -Atrial fibrillation, paroxysmal patient is rate controlled at this time -Acute kidney injury with acute tubular necrosis secondary to hypotension and cardiorenal syndrome, improving requiring emergent dialysis -Chronic kidney disease probably secondary to nephrosclerosis -Hyperkalemia secondary to acute renal failure, requiring dialysis, improving -Macrocytic anemia -Pressures ulcers stage II bilateral buttocks, present on admission -Morbid obesity with a BMI of 40.9, -possible sleep apnea, will need outpatient sleep study -hyperlipidemia history -Benign prostatic hypertrophy, patient is on tamsulosin which is being held temporally at this time because of shock but need to be resumed once his blood pressure improves as soon as possible -Bullous pemphigus has a wound in the left lower extremity, continue local wound care -Vitamin D deficiency -Chronic low back pain -GI prophylaxis -DVT prophylaxis: On anticoagulation as mentioned above -Full code Plan: Patient continues to be on Lasix 80 mg IV push twice daily and metolazone with nephrology following and plan is to hold hemodialysis today. Reassess for possible need of dialysis tomorrow. We'll discuss further if patient will be requiring outpatient dialysis as patient continues with temporary catheter at this time Continue with renal diet and strict intake and output. Wean FiO2 as tolerated currently maintained on 5 L Recommend PT/OT therapy evaluation, will discuss further with case management and family once treatment plan is confirmed patient will require dialysis outpatient or not Hematology/Oncology following per nephrology with abnormal lab values and pending at this time concerns of multiple myeloma, undergoing further workup which is pending Recommend turning the patient every 2-3 hours and frequent offloading of the sacral area with continued wound care Patient was started on low-dose IV steroids for bullous pemphigus and will continue with Accu-Cheks before meals and at bedtime and sliding scale Due to multiple complex medical issues, prognosis is extremely guarded The impression and plan of care has been dictated by Sandra Ayala, Nurse Practitioner as directed. Dr. Jj MD I have performed a history and examination and MDM of this patient, discussed the same with the dictator, and agree with the dictator's assessment and plan as written ,documented as a scribe. Based on total visit time, I have performed more than 50% of the visit. Objective - Vital Signs Vital signs: Vital Signs Temp 97.7 F 03/03/23 08:00 Pulse 70 03/03/23 08:00 Resp 18 03/03/23 08:00 BP 129/82 03/03/23 08:00 Pulse Ox 98 03/03/23 08:47 FiO2 100 02/27/23 08:19 Intake & Output 03/02/23 03/03/23 03/03/23 18:59 06:59 18:59 Intake Total 620 100 397.5 Output Total 2700 200 Balance -2080 -100 397.5 Weight 125 kg 120.5 kg Intake: IV 120 Furosemide 100 mg In 120 Sodium Chloride 0.9% 90 ml @ 10 MG/HR 10 mls/hr IV .Q10H FIDEL Rx#: [id number] Intake, IV Titration 100 97.5 Amount Furosemide 100 mg In 100 97.5 Sodium Chloride 0.9% 90 ml @ 10 MG/HR 10 mls/hr IV .Q10H FIDEL Rx#: [id number] Oral 300 Hemodialysis 500 Output: Urine 200 200 Hemodialysis 2500 Other: Voiding Method Indwelling Catheter Indwelling Catheter Indwelling Catheter ABP, PAP, CO, CI - Last Documented Arterial Blood Pressure 132/44 - Labs CBC & Chem 7: 03/03/23 07:26 03/03/23 07:26 Labs: Abnormal Lab Results - Last 24 Hours (Table) 02/28/23 03/02/23 03/02/23 Range/Units 13:15 06:01 16:19 WBC (3.8-10.6) k/uL RBC (4.30-5.90) m/uL Hgb (13.0-17.5) gm/dL Hct (39.0-53.0) % MCV (80.0-100.0) fL RDW (11.5-15.5) % Neutrophils # (1.3-7.7) k/uL Lymphocytes # (1.0-4.8) k/uL Potassium (3.5-5.1) mmol/L BUN (9-20) mg/dL Creatinine (0.66-1.25) mg/dL Glucose (74-99) mg/dL POC Glucose (mg/dL) 143 H (70-110) mg/dL Calcium (8.4-10.2) mg/dL Iron 21 L (65-175) UG/DL TIBC 144 L (228-460) UG/DL % Saturation 14.58 L (15.00-50.00) Transferrin 103.0 L (204.0-354.0) mg/dL U Free [place] Light Ch (0.00-3.29) mg/dL Free [place] LC, Quant 4.52 H (0.33-1.94) mg/dL Free [place] LC, Quant 4.91 H (0.57-2.63) mg/dL 03/02/23 03/02/23 03/03/23 Range/Units 20:55 21:09 06:14 WBC (3.8-10.6) k/uL RBC (4.30-5.90) m/uL Hgb (13.0-17.5) gm/dL Hct (39.0-53.0) % MCV (80.0-100.0) fL RDW (11.5-15.5) % Neutrophils # (1.3-7.7) k/uL Lymphocytes # (1.0-4.8) k/uL Potassium (3.5-5.1) mmol/L BUN (9-20) mg/dL Creatinine (0.66-1.25) mg/dL Glucose (74-99) mg/dL POC Glucose (mg/dL) 203 H 175 H (70-110) mg/dL Calcium (8.4-10.2) mg/dL Iron (65-175) UG/DL TIBC (228-460) UG/DL % Saturation (15.00-50.00) Transferrin (204.0-354.0) mg/dL U Free [place] Light Ch 29.83 H (0.00-3.29) mg/dL Free [place] LC, Quant (0.33-1.94) mg/dL Free Lambda LC, Quant (0.57-2.63) mg/dL 03/03/23 03/03/23 03/03/23 Range/Units 07:26 07:26 11:31 WBC 11.2 H (3.8-10.6) k/uL RBC 2.65 L (4.30-5.90) m/uL Hgb 8.7 L (13.0-17.5) gm/dL Hct 26.9 L (39.0-53.0) % MCV 101.4 H (80.0-100.0) fL RDW 16.5 H (11.5-15.5) % Neutrophils # 9.8 H (1.3-7.7) k/uL Lymphocytes # 0.6 L (1.0-4.8) k/uL Potassium 5.2 H (3.5-5.1) mmol/L BUN 32 H (9-20) mg/dL Creatinine 2.95 H (0.66-1.25) mg/dL Glucose 160 H (74-99) mg/dL POC Glucose (mg/dL) 192 H (70-110) mg/dL Calcium 6.7 L (8.4-10.2) mg/dL Iron (65-175) UG/DL TIBC (228-460) UG/DL % Saturation (15.00-50.00) Transferrin (204.0-354.0) mg/dL U Free [place] Light Ch (0.00-3.29) mg/dL Free [place] LC, Quant (0.33-1.94) mg/dL Free Lambda LC, Quant (0.57-2.63) mg/dL
[2023-03-03 16:30] LABS: Glucose,Whole Blood 163 mg/dL (70-110)
[2023-03-03] MEDS: metOLazone 5 MG TAB PO SCH (17:07)
[2023-03-03 21:43] LABS: Glucose,Whole Blood 185 mg/dL (70-110)
[2023-03-04 05:51] LABS: Glucose,Whole Blood 171 mg/dL (70-110)
[2023-03-04] MEDS: INSULIN ASPART (NovoLOG) 100 UNIT/ML VIAL SQ SCH ×4 (06:30→21:38)
[2023-03-04] MEDS: HYDROcodone/APAP 5-325MG 1 EACH TAB PO PRN ×3 (06:30→18:44)
[2023-03-04] MEDS: MIDODRINE 5 MG TAB PO SCH ×3 (06:30→17:14)
--- NOTE | 2023-03-04 08:41 | P.GSCN ---
History of Present Illness Consult date: 03/04/23 Reason for Consult: gross hematuria History of present illness: This is a 67 yo male admitted to the hospital with pulmonary edema, Urology is consulted for gross hematuria. Patient currently has a palafox catheter in place. Patient noticed gross hematuria yesterday. This am it has resolved. no previous hx of gross hematuria. Denies any voiding issues at baseline. no previous hx of kidney stones. He underwent Renal U/S during this hospital admission which showed no evidence of renal masses or hydronephrosis. Denies any family hx of malignancies Review of Systems - Constitutional Denies fever, Denies weight loss - EENT Ears, nose, mouth and throat: Denies dysphagia - Cardiovascular Denies chest pain, Denies shortness of breath - Respiratory Denies cough, Denies 7 - Gastrointestinal Reports as per HPI - Genitourinary Reports hematuria, Denies dysuria, Denies flank pain - Integumentary Denies rash, Denies unusual bruising - Neurological Denies headaches, Denies syncope Past Medical History Past Medical History: Heart Failure, Diabetes Mellitus, Deep Vein Thrombosis (DVT), Hypertension, Osteoarthritis (OA), Prostate Disorder Additional Past Medical History / Comment(s): back pain, MRI scheduled for 10/28/22 History of Any Multi-Drug Resistant Organisms: None Reported Past Surgical History: Orthopedic Surgery Additional Past Surgical History / Comment(s): bilateral total hip replacement. 200705-12-16 TOTAL RIGHT HIP REPLACEMENT. RT KNEE SX. RT SHOULDER SX. COLONOSCOPY Past Anesthesia/Blood Transfusion Reactions: No Reported Reaction Past Psychological History: No Psychological Hx Reported Smoking Status: Former smoker Past Alcohol Use History: None Reported Past Drug Use History: None Reported - Past Family History Mother Family Medical History: Diabetes Mellitus Father Additional Family Medical History / Comment(s): FROM [facility]ING[facility] Medications and Allergies Home Medications Medication Instructions Recorded Confirmed Type atenoloL [Tenormin] 25 mg PO BID 05/08/16 02/24/23 History Alpha Lipoic Acid 1,200 mg PO BID 10/20/22 02/24/23 History Aspirin EC [Ecotrin Low Dose] 81 mg PO DAILY 10/20/22 02/24/23 History Atorvastatin [Lipitor] 40 mg PO DAILY 10/20/22 02/24/23 History Cholecalciferol [Vitamin D3 (125 125 mcg PO DAILY 10/20/22 02/24/23 History Mcg = 5000 Iu)] Magnesium 250 mg PO BID 10/20/22 02/24/23 History Tamsulosin [Flomax] 0.4 mg PO DAILY 10/20/22 02/24/23 History Calcium Carbonate [Tums] 500 mg PO TID PRN tab 10/22/22 02/24/23 Rx Rivaroxaban [Xarelto] 20 mg PO DAILY 30 Days #30 tab 10/22/22 02/24/23 Rx Furosemide [Lasix] 20 mg PO BID 02/24/23 02/24/23 History Vitamin B Complex 1 cap PO DAILY 02/24/23 02/24/23 History lisinopriL [Prinivil] 20 mg PO DAILY 02/24/23 02/24/23 History metFORMIN HCL ER [Glucophage XR] 250 mg PO DAILY 02/24/23 02/24/23 History Allergies Allergy/AdvReac Type Severity Reaction Status Date / Time Penicillins Allergy Rash/Hives Verified 02/24/23 19:24 ibuprofen AdvReac BURING Verified 02/24/23 19:24 SENSATION IN ARMS Surgical - Exam Vital Signs Pulse Resp BP Pulse Ox 65 24 101/49 97 02/24/23 14:12 02/24/23 14:12 02/24/23 14:12 02/24/23 14:12 - General no distress, no pain - Eyes normal ocular movement, no pale - ENT normal nares, normal mucosa - Respiratory normal expansion, normal respiratory effort - Abdomen Abdomen: soft, non tender, no distended - Psychiatric oriented to time, oriented to person, oriented to place Results - Labs 03/03/23 07:26 03/03/23 07:26 Abnormal Lab Results - Last 24 Hours (Table) 02/28/23 03/02/23 03/03/23 Range/Units 13:15 21:09 07:26 WBC (3.8-10.6) k/uL RBC (4.30-5.90) m/uL Hgb (13.0-17.5) gm/dL Hct (39.0-53.0) % MCV (80.0-100.0) fL RDW (11.5-15.5) % Neutrophils # (1.3-7.7) k/uL Lymphocytes # (1.0-4.8) k/uL Potassium (3.5-5.1) mmol/L BUN (9-20) mg/dL Creatinine (0.66-1.25) mg/dL Glucose (74-99) mg/dL POC Glucose (mg/dL) (70-110) mg/dL Calcium (8.4-10.2) mg/dL PTH Intact 139.0 H (14.0-72.0) pg/mL U Free [place] Light Ch 29.83 H (0.00-3.29) mg/dL Free [place] LC, Quant 4.52 H (0.33-1.94) mg/dL Free Lambda LC, Quant 4.91 H (0.57-2.63) mg/dL 03/03/23 03/03/23 03/03/23 Range/Units 07:26 07:26 11:31 WBC 11.2 H (3.8-10.6) k/uL RBC 2.65 L (4.30-5.90) m/uL Hgb 8.7 L (13.0-17.5) gm/dL Hct 26.9 L (39.0-53.0) % MCV 101.4 H (80.0-100.0) fL RDW 16.5 H (11.5-15.5) % Neutrophils # 9.8 H (1.3-7.7) k/uL Lymphocytes # 0.6 L (1.0-4.8) k/uL Potassium 5.2 H (3.5-5.1) mmol/L BUN 32 H (9-20) mg/dL Creatinine 2.95 H (0.66-1.25) mg/dL Glucose 160 H (74-99) mg/dL POC Glucose (mg/dL) 192 H (70-110) mg/dL Calcium 6.7 L (8.4-10.2) mg/dL PTH Intact (14.0-72.0) pg/mL U Free [place] Light Ch (0.00-3.29) mg/dL Free [place] LC, Quant (0.33-1.94) mg/dL Free Lambda LC, Quant (0.57-2.63) mg/dL 03/03/23 03/03/23 03/04/23 Range/Units 16:24 21:42 05:49 WBC (3.8-10.6) k/uL RBC (4.30-5.90) m/uL Hgb (13.0-17.5) gm/dL Hct (39.0-53.0) % MCV (80.0-100.0) fL RDW (11.5-15.5) % Neutrophils # (1.3-7.7) k/uL Lymphocytes # (1.0-4.8) k/uL Potassium (3.5-5.1) mmol/L BUN (9-20) mg/dL Creatinine (0.66-1.25) mg/dL Glucose (74-99) mg/dL POC Glucose (mg/dL) 163 H 185 H 171 H (70-110) mg/dL Calcium (8.4-10.2) mg/dL PTH Intact (14.0-72.0) pg/mL U Free [place] Light Ch (0.00-3.29) mg/dL Free [place] LC, Quant (0.33-1.94) mg/dL Free Lambda LC, Quant (0.57-2.63) mg/dL Diabetes panel 03/03/23 Range/Units 07:26 Sodium 137 (137-145) mmol/L Potassium 5.2 H (3.5-5.1) mmol/L Chloride 107 (98-107) mmol/L Carbon Dioxide 28 (22-30) mmol/L BUN 32 H (9-20) mg/dL Creatinine 2.95 H (0.66-1.25) mg/dL Glucose 160 H (74-99) mg/dL Calcium 6.7 L (8.4-10.2) mg/dL Calcium panel 03/03/23 Range/Units 07:26 Calcium 6.7 L (8.4-10.2) mg/dL Pituitary panel 03/03/23 Range/Units 07:26 Sodium 137 (137-145) mmol/L Potassium 5.2 H (3.5-5.1) mmol/L Chloride 107 (98-107) mmol/L Carbon Dioxide 28 (22-30) mmol/L BUN 32 H (9-20) mg/dL Creatinine 2.95 H (0.66-1.25) mg/dL Glucose 160 H (74-99) mg/dL Calcium 6.7 L (8.4-10.2) mg/dL Adrenal panel 03/03/23 Range/Units 07:26 Sodium 137 (137-145) mmol/L Potassium 5.2 H (3.5-5.1) mmol/L Chloride 107 (98-107) mmol/L Carbon Dioxide 28 (22-30) mmol/L BUN 32 H (9-20) mg/dL Creatinine 2.95 H (0.66-1.25) mg/dL Glucose 160 H (74-99) mg/dL Calcium 6.7 L (8.4-10.2) mg/dL Assessment and Plan Assessment: 67 yo male with hx of gross hematuria. Currently has palafox catheter in place, gross hematuria resolved this am, no previous hx of gross hematuria. His Gross hematuria most likely secondary to trauma from his catheter balloon, given resolution, no further intervention. Discussed with him if his gross hematuria reoccurs he will need outpatient cystoscopy
[2023-03-04] MEDS: ATORVASTATIN 40 MG TAB PO SCH (09:29)
[2023-03-04] MEDS: CHOLECALCIFEROL 25 MCG (1000 IU) TABLET PO SCH (09:29)
[2023-03-04] MEDS: metOLazone 5 MG TAB PO SCH (09:29)
[2023-03-04] MEDS: ASPIRIN 81 MG PO SCH (09:29)
[2023-03-04] MEDS: FUROSEMIDE 10 MG/ML 10 ML VIAL IV SCH (09:37)
[2023-03-04] MEDS: methylPREDNISolone SOD SUCCI 40 MG/ML 1 ML VIAL IV SCH ×2 (09:41→21:39)
[2023-03-04] MEDS: SODIUM FERRIC GLUCONAT-SUCROSE 125 MG in SODIUM CHLORIDE 0.9% 100 ML IVPB SCH (09:46)
[2023-03-04] MEDS: PANTOPRAZOLE 40 MG/10 ML VIAL IVP SCH (10:18)
--- NOTE | 2023-03-04 10:44 | P.PN ---
Subjective Progress Note Date: 03/04/23 I am seeing this patient in new consultation today 02/25/2023 for suspected acute exacerbation of diastolic congestive heart failure. Patient is a 67-year-old white male with past medical history significant for atrial fibrillation, hyperlipidemia, hypertension, diabetes mellitus type 2, DVT, BPH, bullous pemphigoid and chronic back pain. 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 He has been having shortness of breath that has progressively worsened over the last couple weeks. It is especially worse on exertion, and states he can only walk approximately 5 feet. He sleeps in a recliner at home. He's had progressively worsening generalized swelling. Denies any chest pain, heart palpitations, syncope. Chest x-ray on arrival showed cardiomegaly with pulmonary vascular congestion and bilateral pleural effusions. Patient is currently sitting up in bed, on 4 L/m nasal cannula, and is fairly comfortable. He does have gross anasarca. He is pale. Blood pressure is borderline. He has been started on midodrine, and may have to be transferred to the intensive care unit for norepinephrine infusion. Last blood pressure was 90/50. ECG shows atrial fibrillation with controlled ventricular rate. Currently receiving Lasix 40 mg 3 times a day. Barkley catheter has been inserted for accurate intake and output. Patient does have a component of acute kidney injury. He was hyperkalemic, with a potassium of 6.5 on arrival, and was given 10 units of regular insulin, 1 amp D50 W, 1 amp sodium bicarb, and Lokelma. Potassium level did come down to 5.8. BMP on arrival shows sodium 138, potassium down to 5.8, chloride of 112, serum bicarbonate 24, BUN 62, creatinine 2.17, glucose 84. CBC on arrival shows a WBC count of 5.7, hemoglobin 9.5, hematocrit 30.1, platelets 230. He is anemic, and his Xarelto dose was reportedly increased for A. fib prophylaxis back in September 2022. He was found to have new onset A. fib. He denies any bloody bowel movements or melena. Echocardiogram done at that time showed a normal ejection fraction of 55-60% without any valvular abnormality. NT proBNP was elevated at 5360. As stated above, patient has been hypotensive, and may require transfer to the intensive care unit on Levophed if no improvement with midodrine. On today's evaluation of of 02/26/2023, the patient is being seen in follow-up in the intensive care unit. He had a very complicated course yesterday. Note that he continued to have issues with hyperkalemia that was unresponsive to medical treatment. The patient also continued to have difficulties and hypotension, massive fluid overload and low urine output. He was not responding adequately to the diuretics. He was on high-dose pressors and his norepinephrine at a certain stage was running as high as 0.45 mcg/kg/m. As such, it was decided to proceed with hemodialysis. His control his potassium. No ultrafiltration was done. Dialysis was completed a potassium level improved and it dropped down to 4.9 and this morning is up to 5.1. Noted the patient was having episodes of sinus bradycardia yesterday due to his hyperkalemia. His cur rent cardiac rhythm is sinus. Rate is 65. His norepinephrine has been weaned down to 0.14 mcg/kg/m. He remains on a Lasix drip and is producing somewhere between 40-50 mL of urine output. He continues to have massive fluid overload and fluid weeping from the skin surface of his lower extremities. BUN is 44 with a creatinine of 1.9 and a sodium level is at 139 and a potassium level of 5.1. The patient was at 8.4 with a hemoglobin of 8.7. His ultrasound of the abdomen and the kidneys were done. The patient had no major abnormalities. His common bile duct measured 9 mm in size. No evidence of any hydronephrosis. His echocardiogram was also repeated yesterday and the patient was found to have left ventricular ejection fraction of 55-60%. He had mild RV dilatation. Mild pulmonary hypertension. No significant valvular abnormalities. The patient had a repeat chest x-ray today that showed bilateral pleural effusions and significant volume overload. The patient is currently on 100% nonrebreather facemask. Is arousable and is communicating and the is at the bedside. He does have a dialysis catheter in his left femoral vein. He also has a triple- lumen cath in his left subclavian vein. On today's evaluation of 02/27/2023, the patient is alert and awake and communicating. There is no significant improvement in his neurologic status since yesterday. In same time, there is improvement in volume status. The patient underwent already 2 sessions of hemodialysis and yesterday he received some ultrafiltration. The patient remains on IV albumin 12.5 g, 25%, every 8 hours and the patient is also on Lasix 10 mg an hour. Urine output is in order of 100 mL an hour. The patient has a BUN of 37 with a creatinine of 1.8. Potassium levels down to 4.4. The white cell cause of 9.1 with a hemoglobin of 8.0. His cardiac rhythm is still in nature fibrillation. His oxygenation is stable and the patient is currently on nasal cannula at 15 L. No major signs of any respiratory distress at this point. Hemoglobin is at 8.0. At the same time, the patient is on low-dose pressors and the patient is weaned off and his norepinephrine. norepinephrine is running at 0.08 mcg/kg/m. he remains on anticoagulation and he is on Xarelto . 02/28/2023, the patient is doing extremely well. He is on 4 L of oxygen by nasal cannula. He remains on Lasix drip at 10 mg an hour. Urine output is adequate. There is improvement in the edema as the patient is undergoing daily sessions of hemodialysis. He has already undergone 3 sessions of hemodialysis the last being yesterday. He is currently on 4 L O2. His off pressors. The patient's creatinine is down to 1.8 with a BUN of 30. Sodium level is at 136. White cell count of 8.0 with a hemoglobin of 7.7. Repeat chest x-ray was done this morning and shows moderate-sized bilateral pleural effusion and as such the patient continues to have some excess volume his chest. Nephrology is on the case. Pressors are off. Cardiac rhythm is atrial fibrillation. Remains on anticoagulation. 03/01/2023, patient was transferred also the ICU yesterday and the patient is currently being seen on a medical floor. He is doing well. No specific complaints. No chest pain. He continues to be on a Lasix drip at 10 mg an hour. His left is no hemodialysis was done yesterday. He is on no pressors for now. His edema is also improving although he does have some residual edema lower extremity bilaterally. He is on no pressors. Is on anticoagulation. No altered mentation. No chest pain. No other new complaints otherwise for now. The patient is seen today 03/02/2023 in follow-up on the regular medical floor. He is currently sitting up in bed. Awake and alert in no acute distress. He is maintaining O2 saturations in the 90s on 4 L/m per nasal cannula. He is continued on a Lasix drip at 10 mg per hour. The plan is for hemodialysis today. Urine output currently at 1300 ML's in the past 24 hours. Sodium 140. Potassium 5.1. Bicarb 31. BUN 32. Creatinine 2.54. Glucose 109. He is continued on midodrine. Pressure stable. The patient is seen today 03/03/2023 in follow-up on the regular medical floor. He is currently sitting up in bed. Awake and alert in no acute distress. Maintaining O2 saturations in the 90s on 5 L/m per nasal cannula. Continues on a Lasix drip at 10 mg per hour. Currently in a -2.1 L balance. White count 11.2. Hemoglobin 8.7. Platelets 173. Sodium 137. Potassium 5.2. Bicarb 28. BUN 32. Creatinine 2.95. Glucose 160. He is continued on Xarelto. The patient is seen today 03/04/2023 in follow-up on the regular medical floor. He is awake and alert in no acute distress. Breathing easier today compared to yesterday. He did undergo hemodialysis with another 3 L of fluid removed. He has less edema. Today's labs are pending. He is making urine. He remains on Solu-Medrol. Continued on Xarelto for anticoagulation. Objective - Vital Signs Vital signs: Vital Signs Temp 97.6 F 03/04/23 07:21 Pulse 70 03/04/23 09:35 Resp 18 03/04/23 07:21 BP 111/65 03/04/23 09:35 Pulse Ox 97 03/04/23 07:21 FiO2 100 02/27/23 08:19 Intake & Output 03/03/23 03/04/23 03/04/23 18:59 06:59 18:59 Intake Total 1417.5 1200 Output Total 3600 100 Balance -2182.5 1100 Weight 120.5 kg Intake: IV 120 0.9% @ KVO 120 Intake, IV Titration 97.5 Amount Furosemide 100 mg In 97.5 Sodium Chloride 0.9% 90 ml @ 5 MG/HR 5 mls/hr IV .Q20H [facility] Rx#:[id number] Oral 820 1080 Hemodialysis 500 Output: Urine 200 100 Hemodialysis 3400 Other: Voiding Method Indwelling Catheter Indwelling Catheter # Voids 1 # Bowel Movements 1 ABP, PAP, CO, CI - Last Documented Arterial Blood Pressure 132/44 - Exam GENERAL EXAM: Alert, 67-year-old male, comfortable in no apparent distress. There is movement in the gross anasarca. On 5 L of oxygen by nasal cannula. HEAD: Normocephalic and atraumatic EYES: Normal reaction of pupils, equal size. NOSE: Clear with pink turbinates. THROAT: No erythema or exudates. NECK: No masses, no JVD. CHEST: No chest wall deformity. LUNGS: Equal air entry with bibasilar inspiratory crackles. No wheeze, rhonchi or dullness. No conversational dyspnea or accessory muscle use. CVS: S1 and S2 normal with no audible murmur, irregular rhythm. No extra heart sounds ABDOMEN: Obese abdomen, no hepatosplenomegaly, active bowel sounds, no guarding or rigidity. SPINE: No scoliosis or deformity SKIN: No rashes. Bilateral buttocks stage II pressure injuries. Do not appear infected. There is generalized ecchymosis. CENTRAL NERVOUS SYSTEM: No focal deficits, tone is normal in all 4 extremities. EXTREMITIES: Left femoral hemodialysis catheter in place. There is peripheral edema pitting edema of bilateral upper and lower extremities, +1. No clubbing, or cyanosis. Peripheral pulses are intact. - Labs CBC & Chem 7: 03/03/23 07:26 03/03/23 07:26 Labs: Abnormal Lab Results - Last 24 Hours (Table) 03/02/23 03/03/23 03/03/23 Range/Units 21:09 07:26 11:31 POC Glucose (mg/dL) 192 H (70-110) mg/dL PTH Intact 139.0 H (14.0-72.0) pg/mL U Free [place] Ch 29.83 H (0.00-3.29) mg/dL 03/03/23 03/03/23 03/04/23 Range/Units 16:24 21:42 05:49 POC Glucose (mg/dL) 163 H 185 H 171 H (70-110) mg/dL PTH Intact (14.0-72.0) pg/mL U Free [place] Ch (0.00-3.29) mg/dL Assessment and Plan Assessment: Acute hypoxemic respiratory failure secondary to exacerbation of diastolic congestive heart failure. Chest x-ray on arrival shows cardiomegaly with pulmo nary vascular congestion and small bilateral pleural effusions. NT proBNP was elevated at 5360. Recent echocardiogram back in September, shows left ventricular hypertrophy, with a preserved left ventricular ejection fraction of 55-60%, and no valvular abnormalities reported. The patient has bilateral pleural effusion and currently is on 4 L of oxygen by nasal cannula and he continues to have bilateral pleural effusions. Showing improvement with hemodialysis/ultrafiltration and the patient remains on Lasix 80 mg IV every 12 hours. 3.4 L removed on 03/03/2023. Bilateral pleural effusions, repeat chest x-ray today shows small to moderate- sized pleural effusion bilaterally right more than left. Encephalopathy, recovered Hypotension, recovered. Atrial fibrillation with controlled ventricular rate, anticoagulated on Xarelto, rate is controlled for now Acute kidney injury, possibly cardiorenal versus ATN. Creatinine today is at 2.5, no hydronephrosis, the patient is undergoing hemodialysis with ultrafiltration and the patient is also on Lasix drip at 10 mg an hour Hyperkalemia, improved with hemodialysis. The patient also received medical management for hyperkalemia and his potassium level was refractory and as such required dialysis. The patient has multiple sessions of hemodialysis in the potassium level is normalized. Anemia, no reported acute blood loss. Mildly macrocytic Hypoalbuminemia and gross anasarca Pressure injuries, stage II, on bilateral buttocks Hyperlipidemia BPH Obesity, with a BMI of 39 kg/m Plan: The patient was seen and evaluated Medications reviewed and labs pending Currently stable on 5 L nasal cannula Titrate the FiO2 as tolerated Hemodialysis per nephrology We'll continue to follow I have personally seen and examined the patient, performed the documentation and the assessment and plan as written. Number of minutes spent on the visit: 10.
[2023-03-04 11:02] LABS: Glucose,Whole Blood 188 mg/dL (70-110)
--- NOTE | 2023-03-04 11:28 | P.PN ---
Subjective Progress Note Date: 03/04/23 Principal diagnosis: monoclonal gammopathy At today's visit patient is resting comfortably in bed. Patient's breathing is even and unlabored. Denies shortness of breath. Objective - Vital Signs Vital signs: Vital Signs Temp 97.6 F 03/04/23 07:21 Pulse 70 03/04/23 09:35 Resp 18 03/04/23 07:21 BP 111/65 03/04/23 09:35 Pulse Ox 97 03/04/23 07:21 FiO2 100 02/27/23 08:19 Intake & Output 03/03/23 03/04/23 03/04/23 18:59 06:59 18:59 Intake Total 1417.5 1200 Output Total 3600 100 Balance -2182.5 1100 Weight 120.5 kg Intake: IV 120 0.9% @ KVO 120 Intake, IV Titration 97.5 Amount Furosemide 100 mg In 97.5 Sodium Chloride 0.9% 90 ml @ 5 MG/HR 5 mls/hr IV .Q20H [facility] Rx#:[id number] Oral 820 1080 Hemodialysis 500 Output: Urine 200 100 Hemodialysis 3400 Other: Voiding Method Indwelling Catheter Indwelling Catheter # Voids 1 # Bowel Movements 1 ABP, PAP, CO, CI - Last Documented Arterial Blood Pressure 132/44 - Constitutional General appearance: Present: no acute distress, obese - EENT Eyes: Present: anicteric sclerae, EOMI ENT: Present: hearing grossly normal - Respiratory Details: breathing even and unlabored - Cardiovascular Details: skin wamr and dry, diffuse edema to BUE - Integumentary Integumentary: Absent: cyanotic, jaundiced - Musculoskeletal Musculoskeletal: Present: strength equal bilaterally - Psychiatric Psychiatric: Present: A&O x's 3, appropriate affect, intact judgment & insight - Labs CBC & Chem 7: 03/03/23 07:26 03/03/23 07:26 Labs: Abnormal Lab Results - Last 24 Hours (Table) 03/02/23 03/03/23 03/03/23 Range/Units 21:09 07:26 11:31 POC Glucose (mg/dL) 192 H (70-110) mg/dL PTH Intact 139.0 H (14.0-72.0) pg/mL U Free [place] Ch 29.83 H (0.00-3.29) mg/dL 03/03/23 03/03/23 03/04/23 Range/Units 16:24 21:42 05:49 POC Glucose (mg/dL) 163 H 185 H 171 H (70-110) mg/dL PTH Intact (14.0-72.0) pg/mL U Free [place] Ch (0.00-3.29) mg/dL Assessment and Plan (1) Anemia Current Visit: Yes Status: Acute Priority: Medium Code(s): D64.9 - ANEMIA, UNSPECIFIED SNOMED Code(s): 503910494 (2) IgG lambda monoclonal gammopathy Current Visit: Yes Status: Acute Priority: High Code(s): D47.2 - MONOCLONAL GAMMOPATHY SNOMED Code(s): 48988483 Plan: IgG lambda monoclonal gammopathy -IgG lambda seen on immunofixation, protein electrophoresis no measurable quantity reported, no M spike. 24 hours Urine PEP, immunofixation and K/L ordered. Urine currently being collected. L/K LC urine currently resulted is from random urine, not 24 hour collection. Spoke with primary RN and lab, and ensured lab is properly ordered and collected. -Serum kappa/lambda light chains elevated, but ratio normal. -Unclear at this time if a paraproteinemia is the cause for LAVERNE. Will provide further recommendations, pending workup Macrocytic anemia -Iron studies show a low saturation, ferritin 161. Would anticipate ferritin to be elevated because of comorbid conditions. With low saturation and normal ferritin of 161 patient is likely iron deficient. Nephrology has ordered parenteral iron. -Transfuse for a Hgb<7 attests: I have seen and examined pt, performed H&P, developed impression and plan of care. Discussed with dictator, agree with documentation. Dictated as a scribe.
--- NOTE | 2023-03-04 12:38 | P.PN ---
Subjective Progress Note Date: 03/04/23 Patient is a pleasant 67-year-old male with a history of diastolic dysfunction normal ejection fraction the past came in with anasarca fluid overload and shortness of breath has been going on for about 2 weeks. Patient has significant anasarca involving the entire abdomen bilateral lower extremity is 4 + pitting pedal edema and edema of the bilateral upper extremity is. Patient has a baseline creatinine of around 1.30-1.5 present creatinine is 2.3 2. Patient is hypotensive facet of troponin is negative without any significant EKG changes. Patient does have history of atrial fibrillation presently rate controlled on atenolol which is being held at this time because of hypotension patient also has serum potassium of around 6.8 presently patient was given IV insulin and calcium gluconate. Patient is presently on norepinephrine drip, Lasix drip. Liver enzymes are within normal limits. Patient doesn't have any leukocytosis. Patient doesn't have any fever chills denied any cough with the significant sputum production. 02/26/2023 Patient is seen and evaluated in follow-up this morning in the ICU with multiple medical consultations following. Patient with continued hyperkalemia maintained on Lasix drip with continued hypotension requiring emergent dialysis catheter and receiving dialysis currently. Patient is also maintained on a nonrebreather for continued shortness of breath. Patient is very lethargic although arousable but fatigues very easily. Urine output has improved slightly. at bedside with questions and concerns were answered. Patient is currently afebrile continues with shortness of breath denies chest pain and is requiring some pressor support. Kidney functions as well as potassium is improved since dialysis. Overall prognosis is extremely guarded. 02/27/2023 Patient is seen in follow-up continues to be in the ICU currently receiving hemodialysis and tolerating. Continues on low-dose Levophed which is currently being weaned. Continues on Lasix drip at 10 mL's per hour with some improvement in urine output. Patient was on 15 L high flow this morning along with nasal cannula and has titrated down to 8 L high flow and recommended weaning FiO2 as tolerated. Plan is for hemodialysis daily for now and will follow-up with labs. Kidney functions are improving and BUN is 37 with a creatinine of 1.8. Hemoglobin currently stable at 8.0 most likely anemia of chronic disease. Patient is afebrile report some improvement in his shortness of breath although continues to be short of breath. Patient extremely weak and does have history of chronic back pain and was scheduled to have outpatient procedure. Patient with significant upper and lower extremity edema pitting with minimal improvement. 02/28/2023 Patient remains in intensive care unit and continues on hemodialysis currently undergoing this AM at bedside. Noted that he has chronic low back at baseline and he mostly transfers with a walker at baseline he was scheduled for a lumbar injection outpatient at [facility] but was not cleared by cardiology to go off his medications. PT/OT will be consulted. He has adequte urine output. He remains no lasix gtt. He has been weaned off vasopressors and blood pressure is stable. Patient received albumin. Chest xray from this AM has not been resulted yet. Sodium is 136, potassium 4.2, BUN 30, creatinine 1.87 which is stable. 03/01/2023 Patient has been moved out of the intensive care unit and is currently evaluated on the medical floor. He does have a sacral stage II pressure injury and this is causing him some discomfort. He is being repositioned and would recommend doing this every 2-3 hours. He is on a Lasix drip at 10 mL's per hour he has a urine output of 4.9 L in the last 24 hours. He continues with significant peripheral edema he has +2 pitting up to his thighs and scrotum as well as his upper extremities. His creatinine is increased up to 2.24 today. Vitamin D level found to be low at 10.4 and patient is started on oral supplementation. 03/02/2023 Patient is seen and evaluated in follow-up today awaiting to receive dialysis today. Patient being followed by nephrology and will discuss further about outpatient dialysis as patient continues with temporary catheter. Patient remains on Lasix drip and diuresis and well and continues with significant overload. Patient with bullous pemphigus and was evaluated by wound care recommending wound care as patient also has decubitus ulcers. Will consult infectious disease and appreciate input and recommendations regarding concerns for possible underlying infection of the left forearm. Will add some IV steroids as well and monitor and recommend Accu-Cheks before meals and at bedtime and will use sliding scale as needed. Patient is currently afebrile with no reports of worsening shortness of breath or chest pains. Patient is currently maintaining good oxygen saturations above 95% on 4-6 L via nasal cannula. 03/03/2023 Patient is seen and evaluated today with multiple consultations following. Hematology/Oncology consulted and has ordered 24-hour urine along with additional testing which is pending. Patient is maintained on Lasix 80 mg IV push twice daily and metolazone being ordered. Patient continues with significant volume overload with no plans of dialysis today. Patient continues with temporary dialysis catheter and will need to discuss further with nephrology if patient will require permanent dialysis catheter and outpatient hemodialysis to be arranged. Patient with some weakness and recommend physical therapy evaluation daily. Patient also continued on local wound care of the buttocks area and has history of bullous pemphigus and infectious disease consulted. Patient started on low-dose IV steroids and will continue with Accu- Cheks before meals and at bedtime and monitor for some improvement. Hemoglobin is stable at 8.7 and platelets are 173. Sodium is 137 with a potassium of 5.2, BUN is 32 with a creatinine of 2.95, magnesium is 2.1. Patient is currently afebrile with no reports of chest pain or worsening shortness of breath. Patient is diuresing and currently maintained on 5 L via nasal cannula with an oxygen saturation of 98%. Recommend weaning FiO2 as tolerated as patient does not normally wear oxygen outpatient. 03/04/2023 Patient is seen and evaluated in follow-up today currently awaiting labs which are pending at this time. Per nursing staff no further reports of blood noted in the urine and will resume anticoagulant. Nephrology following awaiting follow-up labs and awaiting to see if hemodialysis is to be done today. Patient reports to feeling better currently maintained on 5 L and denies worsening shortness of breath. Patient is also continued on IV steroids and bullous pemp higus lesions appear to be somewhat improved. We'll continue for another day along with sliding scale and Accu-Cheks and titrate down on the dose of steroids. Continue with local wound care. Patient also being followed by physical therapy and possible discussion of ECF with case management following. Urology has been consulted for the hematuria although hematuria has resolved and will continue with indwelling Barkley catheter for intake and output monitoring and monitor for any further bleeding. Review of systems: Constitutional: no reports of fatigue, no fever, or chills Cardiovascular: No reports of chest pain or palpitations Respiratory: reports some improvement in shortness of breath GI: No reports of nausea, vomiting, or diarrhea : No reports of dysuria or retention Neurovascular: reports of generalized weakness All medications have been reviewed PHYSICAL EXAMINATION: GENERAL: The patient is awake, alert and oriented x2-3. Ill-appearing, elderly appearing, morbidly Obese, anasarca HEENT: Pupils are round and equally reacting to light. EOMI. No scleral icterus. No conjunctival pallor. Normocephalic, atraumatic. No pharyngeal erythema. No thyromegaly. CARDIOVASCULAR: S1 and S2 muffled PULMONARY: Diminished breath sounds bilaterally with some coarse rhonchi noted, faint crackles at the bases noted ABDOMEN: Soft, nontender, nondistended, normoactive bowel sounds. No palpable organomegaly. MUSCULOSKELETAL: No joint swelling or deformity. EXTREMITIES: No cyanosis, clubbing, anasarca, pitting pedal edema as mentioned above edema of the abdominal wall. NEUROLOGICAL: Gross neurological examination did not reveal any focal deficits. SKIN: Stage II pressure ulcers, pale Assessment: -Acute on chronic diastolic heart failure -Cardiogenic shock off pressor support and out of the ICU -Acute hypoxic respiratory failure: Secondary to heart failure exacerbation. -Atrial fibrillation, paroxysmal patient is rate controlled at this time -Hematuria, most likely related to trauma from indwelling Barkley catheter -Acute kidney injury with acute tubular necrosis secondary to hypotension and cardiorenal syndrome, improving requiring emergent dialysis -Chronic kidney disease probably secondary to nephrosclerosis -Hyperkalemia secondary to acute renal failure, requiring dialysis, improving -Macrocytic anemia -Pressures ulcers stage II bilateral buttocks, present on admission -Morbid obesity with a BMI of 40.9, -possible sleep apnea, will need outpatient sleep study -hyperlipidemia history -Benign prostatic hypertrophy, patient is on tamsulosin which is being held temporally at this time because of shock but need to be resumed once his blood pressure improves as soon as possible -Bullous pemphigus has a wound in the left lower extremity, continue local wound care -Vitamin D deficiency -Chronic low back pain -GI prophylaxis -DVT prophylaxis: On anticoagulation as mentioned above -Full code Plan: Patient continues to be on Lasix 80 mg IV push twice daily and metolazone with nephrology following and plan is to evaluate daily for hemodialysis. We'll discuss further if patient will be requiring outpatient dialysis as patient continues with temporary catheter at this time Continue with renal diet and strict intake and output. Wean FiO2 as tolerated currently maintained on 5 L Recommend PT/OT therapy evaluation, will discuss further with case management and family once treatment plan is confirmed patient will require dialysis outpa tient or not Hematology/Oncology following per nephrology with abnormal lab values and pending at this time and undergoing further workup, 24-hour urine pending Patient did have some noted hematuria and anticoagulation was on hold and urology consulted. Urology evaluated the patient most likely secondary to trauma from indwelling Barkley catheter with no further hematuria noted and will resume anticoagulant monitor. Labs from this morning are pending as well. Follow-up labs ordered for a.m. Recommend turning the patient every 2-3 hours and frequent offloading of the sacral area with continued wound care Patient was started on low-dose IV steroids for bullous pemphigus and will continue with Accu-Cheks before meals and at bedtime and sliding scale. Patient showing some improvement and will titrate the dose slowly Due to multiple complex medical issues, prognosis is extremely guarded The impression and plan of care has been dictated by Sandra Ayala, Nurse Practitioner as directed. Dr. Jj MD I have performed a history and examination and MDM of this patient, discussed the same with the dictator, and agree with the dictator's assessment and plan as written ,documented as a scribe. Based on total visit time, I have performed more than 50% of the visit. Objective - Vital Signs Vital signs: Vital Signs Temp 97.6 F 03/04/23 07:21 Pulse 70 03/04/23 09:35 Resp 18 03/04/23 07:21 BP 111/65 03/04/23 09:35 Pulse Ox 97 03/04/23 07:21 FiO2 100 02/27/23 08:19 Intake & Output 03/03/23 03/04/23 03/04/23 18:59 06:59 18:59 Intake Total 1417.5 1200 Output Total 3600 100 Balance -2182.5 1100 Weight 120.5 kg Intake: IV 120 0.9% @ KVO 120 Intake, IV Titration 97.5 Amount Furosemide 100 mg In 97.5 Sodium Chloride 0.9% 90 ml @ 5 MG/HR 5 mls/hr IV .Q20H [facility] Rx#:[id number] Oral 820 1080 Hemodialysis 500 Output: Urine 200 100 Hemodialysis 3400 Other: Voiding Method Indwelling Catheter Indwelling Catheter # Voids 1 # Bowel Movements 1 ABP, PAP, CO, CI - Last Documented Arterial Blood Pressure 132/44 - Labs CBC & Chem 7: 03/03/23 07:26 03/03/23 07:26 Labs: Abnormal Lab Results - Last 24 Hours (Table) 03/02/23 03/03/23 03/03/23 Range/Units 21:09 07:26 16:24 POC Glucose (mg/dL) 163 H (70-110) mg/dL PTH Intact 139.0 H (14.0-72.0) pg/mL U Free [place] Ch 29.83 H (0.00-3.29) mg/dL 03/03/23 03/04/23 03/04/23 Range/Units 21:42 05:49 11:00 POC Glucose (mg/dL) 185 H 171 H 188 H (70-110) mg/dL PTH Intact (14.0-72.0) pg/mL U Free [place] Ch (0.00-3.29) mg/dL
[2023-03-04] MEDS: RIVAROXABAN 20 MG TAB PO SCH ×2 (12:53→14:32)
[2023-03-04] MEDS: HYDROPHILIC CREAM 180 GM TUBE TOPICAL SCH (12:57)
--- NOTE | 2023-03-04 12:58 | P.PN ---
Subjective Patient is seen in follow-up for acute kidney injury. Maintained on IV Lasix. Remains oliguric. Tolerated 3.4 L ultrafiltration yesterday. Edema improving. Hemodynamically stable. Sitting up in chair. Vital signs are stable. General: No acute distress. HEENT: Head exam is unremarkable. On nasal cannula. LUNGS: No audible rhonchi or wheezes. HEART: Rate and Rhythm are regular. ABDOMEN: Soft, nontender. EXTREMITITES: 2+ edema. Objective - Vital Signs Vital signs: Vital Signs Temp 97.6 F 03/04/23 07:21 Pulse 70 03/04/23 09:35 Resp 18 03/04/23 07:21 BP 111/65 03/04/23 09:35 Pulse Ox 97 03/04/23 07:21 FiO2 100 02/27/23 08:19 Intake & Output 03/03/23 03/04/23 03/04/23 18:59 06:59 18:59 Intake Total 1417.5 1200 Output Total 3600 100 Balance -2182.5 1100 Weight 120.5 kg Intake: IV 120 0.9% @ KVO 120 Intake, IV Titration 97.5 Amount Furosemide 100 mg In 97.5 Sodium Chloride 0.9% 90 ml @ 5 MG/HR 5 mls/hr IV .Q20H [facility] Rx#:[id number] Oral 820 1080 Hemodialysis 500 Output: Urine 200 100 Hemodialysis 3400 Other: Voiding Method Indwelling Catheter Indwelling Catheter # Voids 1 # Bowel Movements 1 ABP, PAP, CO, CI - Last Documented Arterial Blood Pressure 132/44 - Labs CBC & Chem 7: 03/03/23 07:26 03/03/23 07:26 Labs: Abnormal Lab Results - Last 24 Hours (Table) 03/02/23 03/03/23 03/03/23 Range/Units 21:09 16:24 21:42 POC Glucose (mg/dL) 163 H 185 H (70-110) mg/dL U Free [place] Ch 29.83 H (0.00-3.29) mg/dL 03/04/23 03/04/23 Range/Units 05:49 11:00 POC Glucose (mg/dL) 171 H 188 H (70-110) mg/dL U Free [place] Ch (0.00-3.29) mg/dL Assessment and Plan Plan: Assessment: 1. Acute kidney injury secondary to ATN secondary to hypotension and cardio renal syndrome. Hemodialysis started 02/25/2023. Creatinine as low as 1.02 dated 10/20/2022. No hydronephrosis noted on ultrasound. 2. Acute on chronic diastolic CHF. 3. Volume overload. Improving with ultrafiltration. 4. Left kidney nodule. This will need to be monitored outpatient. 5. Acute hypoxic respiratory failure. 6. Hyperkalemia secondary to acute kidney injury and LATONIA inhibitor use. Improved post dialysis. 7. Hypocalcemia secondary to hypoalbuminemia. Corrected calcium near normal. Vitamin D deficiency noted. On Drisdol. PTH 139. 8. Anemia. Iron deficiency noted. 9. 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 Hematology following. Plan: Change Lasix to torsemide 40 mg once daily. Continue with daily dialysis mostly for ultrafiltration. Vascular surgery notified for permacath placement and removal of femoral catheter. Monitor for renal recovery. Maintain IV iron. Add Aranesp. Follow-up phosphorus level. Outpatient dialysis being set up by bottle caser. He will maintain on Thursday schedule. Check serologies.
[2023-03-04 13:03] LABS: African American GFR (CKD) 20 (>60 ml/min/1.73 sqM); Anion Gap 5 mmol/L; Blood Urea Nitrogen 35 mg/dL (9-20); Calcium 6.8 mg/dL (8.4-10.2); Carbon Dioxide 28 mmol/L (22-30); Chloride 101 mmol/L (98-107); Glucose 203 mg/dL (74-99); Non-African American GFR(CKD) 18 (>60 ml/min/1.73 sqM); Phosphorus 3.8 mg/dL (2.5-4.5); Potassium 4.5 mmol/L (3.5-5.1); Sodium 134 mmol/L (137-145)
[2023-03-04] MEDS: TORSEMIDE 20 MG TAB PO SCH (15:32)
[2023-03-04] MEDS: DARBEPOETIN ALFA 40 MCG/0.4 ML SYRINGE SQ SCH (15:32)
[2023-03-04 16:51] LABS: Glucose,Whole Blood 155 mg/dL (70-110)
[2023-03-04 17:43] LABS: Hepatitis A Antibody IgM Nonreactive; Hepatitis B Core IgM Nonreactive; Hepatitis B Surface Antigen Nonreactive; Hepatitis C IgG Antibody Nonreactive
[2023-03-04 21:14] LABS: Glucose,Whole Blood 175 mg/dL (70-110)
[2023-03-05] MEDS: HYDROcodone/APAP 5-325MG 1 EACH TAB PO PRN ×4 (00:57→21:29)
[2023-03-05 05:50] LABS: Glucose,Whole Blood 301 mg/dL (70-110)
[2023-03-05] MEDS: INSULIN ASPART (NovoLOG) 100 UNIT/ML VIAL SQ SCH ×4 (06:36→21:22)
[2023-03-05] MEDS: MIDODRINE 5 MG TAB PO SCH ×3 (06:36→16:39)
[2023-03-05 07:51] LABS: Anisocytosis Slight; Basophils % (A) 0 %; Eosinophils # (A) 0.1 k/uL (0-0.7); Eosinophils % (A) 1 %; HCT 24.9 % (39.0-53.0); HGB 7.7 gm/dL (13.0-17.5); Hypochromasia Marked; Lymphocytes # (A) 0.8 k/uL (1.0-4.8); Lymphocytes % (A) 8 %; MCH 31.9 pg (25.0-35.0); MCHC 30.9 g/dL (31.0-37.0); MCV 103.5 fL (80.0-100.0); Macrocytosis Moderate; Mean Platelet Volume 7.7; Monocytes # (A) 0.8 k/uL (0-1.0); Monocytes % (A) 8 %; Neutrophils # (A) 8.1 k/uL (1.3-7.7); Neutrophils % (A) 81 %; Platelet Count 246 k/uL (150-450); Poikilocytosis Slight; RDW 16.3 % (11.5-15.5); WBC 9.9 k/uL (3.8-10.6)
[2023-03-05 07:57] LABS: African American GFR (CKD) 22 (>60 ml/min/1.73 sqM); Anion Gap 6 mmol/L; Blood Urea Nitrogen 33 mg/dL (9-20); Calcium 6.6 mg/dL (8.4-10.2); Carbon Dioxide 27 mmol/L (22-30); Chloride 98 mmol/L (98-107); Glucose 262 mg/dL (74-99); Non-African American GFR(CKD) 19 (>60 ml/min/1.73 sqM); Potassium 4.6 mmol/L (3.5-5.1); Sodium 131 mmol/L (137-145)
[2023-03-05] MEDS: ASPIRIN 81 MG PO SCH (08:20)
[2023-03-05] MEDS: PANTOPRAZOLE 40 MG/10 ML VIAL IVP SCH (08:20)
[2023-03-05] MEDS: ATORVASTATIN 40 MG TAB PO SCH (08:20)
[2023-03-05] MEDS: CHOLECALCIFEROL 25 MCG (1000 IU) TABLET PO SCH (08:20)
[2023-03-05] MEDS: methylPREDNISolone SOD SUCCI 40 MG/ML 1 ML VIAL IV SCH ×2 (08:20→21:23)
[2023-03-05] MEDS: TORSEMIDE 20 MG TAB PO SCH (08:21)
[2023-03-05] MEDS: SODIUM FERRIC GLUCONAT-SUCROSE 125 MG in SODIUM CHLORIDE 0.9% 100 ML IVPB SCH (09:50)
[2023-03-05 10:17] LABS: Free Lambda Lt Chain Qt, Urine 24.41 mg/dL (0.00-0.38)
[2023-03-05 11:32] LABS: Glucose,Whole Blood 151 mg/dL (70-110)
--- NOTE | 2023-03-05 12:20 | P.PN ---
Subjective Patient is seen in follow-up for acute kidney injury. Maintained on torsemide. Urine output about 300 mL in a 24-hour period. Tolerated 3 L ultrafiltration yesterday. Edema improving. Hemodynamically stable. Sitting up in chair. Vital signs are stable. General: No acute distress. HEENT: Head exam is unremarkable. On nasal cannula. LUNGS: No audible rhonchi or wheezes. HEART: Rate and Rhythm are regular. ABDOMEN: Soft, nontender. EXTREMITITES: 2+ edema. Objective - Vital Signs Vital signs: Vital Signs Temp 97.9 F 03/05/23 07:28 Pulse 63 03/05/23 08:25 Resp 17 03/05/23 08:25 BP 141/53 03/05/23 07:28 Pulse Ox 97 03/05/23 09:42 FiO2 100 02/27/23 08:19 Intake & Output 03/04/23 03/05/23 03/05/23 18:59 06:59 18:59 Intake Total 500 Output Total 3710 Balance -3210 Weight 120.5 kg Intake: Hemodialysis 500 Output: Urine 210 Hemodialysis 3500 Other: Voiding Method Indwelling Catheter Indwelling Catheter Indwelling Catheter # Voids 0 ABP, PAP, CO, CI - Last Documented Arterial Blood Pressure 132/44 - Labs CBC & Chem 7: 03/05/23 06:47 03/05/23 06:47 Labs: Abnormal Lab Results - Last 24 Hours (Table) 03/02/23 03/04/23 03/04/23 Range/Units 21:09 12:05 16:49 RBC (4.30-5.90) m/uL Hgb (13.0-17.5) gm/dL Hct (39.0-53.0) % MCV (80.0-100.0) fL MCHC (31.0-37.0) g/dL RDW (11.5-15.5) % Neutrophils # (1.3-7.7) k/uL Lymphocytes # (1.0-4.8) k/uL Sodium 134 L (137-145) mmol/L BUN 35 H (9-20) mg/dL Creatinine 3.37 H (0.66-1.25) mg/dL Glucose 203 H (74-99) mg/dL POC Glucose (mg/dL) 155 H (70-110) mg/dL Calcium 6.8 L (8.4-10.2) mg/dL U Free [place] Ch 24.41 H (0.00-0.38) mg/dL 03/04/23 03/05/23 03/05/23 Range/Units 21:13 05:48 06:47 RBC 2.40 L (4.30-5.90) m/uL Hgb 7.7 L (13.0-17.5) gm/dL Hct 24.9 L (39.0-53.0) % MCV 103.5 H (80.0-100.0) fL MCHC 30.9 L (31.0-37.0) g/dL RDW 16.3 H (11.5-15.5) % Neutrophils # 8.1 H (1.3-7.7) k/uL Lymphocytes # 0.8 L (1.0-4.8) k/uL Sodium (137-145) mmol/L BUN (9-20) mg/dL Creatinine (0.66-1.25) mg/dL Glucose (74-99) mg/dL POC Glucose (mg/dL) 175 H 301 H (70-110) mg/dL Calcium (8.4-10.2) mg/dL U Free [place] Ch (0.00-0.38) mg/dL 03/05/23 03/05/23 Range/Units 06:47 11:30 RBC (4.30-5.90) m/uL Hgb (13.0-17.5) gm/dL Hct (39.0-53.0) % MCV (80.0-100.0) fL MCHC (31.0-37.0) g/dL RDW (11.5-15.5) % Neutrophils # (1.3-7.7) k/uL Lymphocytes # (1.0-4.8) k/uL Sodium 131 L (137-145) mmol/L BUN 33 H (9-20) mg/dL Creatinine 3.16 H (0.66-1.25) mg/dL Glucose 262 H (74-99) mg/dL POC Glucose (mg/dL) 151 H (70-110) mg/dL Calcium 6.6 L (8.4-10.2) mg/dL U Free [place] Ch (0.00-0.38) mg/dL Assessment and Plan Plan: Assessment: 1. Acute kidney injury secondary to ATN secondary to hypotension and cardiorenal syndrome. Hemodialysis started 02/25/2023. Creatinine as low as 1.02 dated 10/20/2022. No hydronephrosis noted on ultrasound. 2. Acute on chronic diastolic CHF. 3. Volume overload. Improving with ultrafiltration. 4. Left kidney nodule. This will need to be monitored outpatient. 5. Acute hypoxic respiratory failure. 6. Hyperkalemia secondary to acute kidney injury and LATONIA inhibitor use. Im proved post dialysis. 7. Hypocalcemia secondary to hypoalbuminemia. Corrected calcium near normal. Vitamin D deficiency noted. On Drisdol. PTH 139. Phosphorus 3.8. 8. Anemia. Iron deficiency noted. Receiving IV iron. Also on Aranesp. 9. 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 Hematology following. Plan: Maintain torsemide. Continue with daily dialysis mostly for ultrafiltration. Vascular surgery notified for permacath placement and removal of femoral catheter. Scheduled for tomorrow. Monitor for renal recovery. Outpatient dialysis being set up by dependency case manager. He will be maintained on Thursday schedule. Follow-up serologies. Hold midodrine for systolic blood pressure above 115.
[2023-03-05 12:28] LABS: C-ANCA <1:20 Titer (<1:20)
[2023-03-05] MEDS: HYDROPHILIC CREAM 180 GM TUBE TOPICAL SCH (12:37)
--- NOTE | 2023-03-05 13:11 | P.PN ---
Subjective Progress Note Date: 03/05/23 I am seeing this patient in new consultation today 02/25/2023 for suspected acute exacerbation of diastolic congestive heart failure. Patient is a 67-year-old white male with past medical history significant for atrial fibrillation, hyperlipidemia, hypertension, diabetes mellitus type 2, DVT, BPH, bullous pemphigoid and chronic back pain. 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 He has been having shortness of breath that has progressively worsened over the last couple weeks. It is especially worse on exertion, and states he can only walk approximately 5 feet. He sleeps in a recliner at home. He's had progressively worsening generalized swelling. Denies any chest pain, heart palpitations, syncope. Chest x-ray on arrival showed cardiomegaly with pulmonary vascular congestion and bilateral pleural effusions. Patient is currently sitting up in bed, on 4 L/m nasal cannula, and is fairly comfortable. He does have gross anasarca. He is pale. Blood pressure is borderline. He has been started on midodrine, and may have to be transferred to the intensive care unit for norepinephrine infusion. Last blood pressure was 90/50. ECG shows atrial fibrillation with controlled ventricular rate. Currently receiving Lasix 40 mg 3 times a day. Barkley catheter has been inserted for accurate intake and output. Patient does have a component of acute kidney injury. He was hyperkalemic, with a potassium of 6.5 on arrival, and was given 10 units of regular insulin, 1 amp D50 W, 1 amp sodium bicarb, and Lokelma. Potassium level did come down to 5.8. BMP on arrival shows sodium 138, potassium down to 5.8, chloride of 112, serum bicarbonate 24, BUN 62, creatinine 2.17, glucose 84. CBC on arrival shows a WBC count of 5.7, hemoglobin 9.5, hematocrit 30.1, platelets 230. He is anemic, and his Xarelto dose was reportedly increased for A. fib prophylaxis back in September 2022. He was found to have new onset A. fib. He denies any bloody bowel movements or melena. Echocardiogram done at that time showed a normal ejection fraction of 55-60% without any valvular abnormality. NT proBNP was elevated at 5360. As stated above, patient has been hypotensive, and may require transfer to the intensive care unit on Levophed if no improvement with midodrine. On today's evaluation of of 02/26/2023, the patient is being seen in follow-up in the intensive care unit. He had a very complicated course yesterday. Note that he continued to have issues with hyperkalemia that was unresponsive to medical treatment. The patient also continued to have difficulties and hypotension, massive fluid overload and low urine output. He was not responding adequately to the diuretics. He was on high-dose pressors and his norepinephrine at a certain stage was running as high as 0.45 mcg/kg/m. As such, it was decided to proceed with hemodialysis. His control his potassium. No ultrafiltration was done. Dialysis was completed a potassium level improved and it dropped down to 4.9 and this morning is up to 5.1. Noted the patient was having episodes of sinus bradycardia yesterday due to his hyperkalemia. His cur rent cardiac rhythm is sinus. Rate is 65. His norepinephrine has been weaned down to 0.14 mcg/kg/m. He remains on a Lasix drip and is producing somewhere between 40-50 mL of urine output. He continues to have massive fluid overload and fluid weeping from the skin surface of his lower extremities. BUN is 44 with a creatinine of 1.9 and a sodium level is at 139 and a potassium level of 5.1. The patient was at 8.4 with a hemoglobin of 8.7. His ultrasound of the abdomen and the kidneys were done. The patient had no major abnormalities. His common bile duct measured 9 mm in size. No evidence of any hydronephrosis. His echocardiogram was also repeated yesterday and the patient was found to have left ventricular ejection fraction of 55-60%. He had mild RV dilatation. Mild pulmonary hypertension. No significant valvular abnormalities. The patient had a repeat chest x-ray today that showed bilateral pleural effusions and significant volume overload. The patient is currently on 100% nonrebreather facemask. Is arousable and is communicating and the is at the bedside. He does have a dialysis catheter in his left femoral vein. He also has a triple- lumen cath in his left subclavian vein. On today's evaluation of 02/27/2023, the patient is alert and awake and communicating. There is no significant improvement in his neurologic status since yesterday. In same time, there is improvement in volume status. The patient underwent already 2 sessions of hemodialysis and yesterday he received some ultrafiltration. The patient remains on IV albumin 12.5 g, 25%, every 8 hours and the patient is also on Lasix 10 mg an hour. Urine output is in order of 100 mL an hour. The patient has a BUN of 37 with a creatinine of 1.8. Potassium levels down to 4.4. The white cell cause of 9.1 with a hemoglobin of 8.0. His cardiac rhythm is still in nature fibrillation. His oxygenation is stable and the patient is currently on nasal cannula at 15 L. No major signs of any respiratory distress at this point. Hemoglobin is at 8.0. At the same time, the patient is on low-dose pressors and the patient is weaned off and his norepinephrine. norepinephrine is running at 0.08 mcg/kg/m. he remains on anticoagulation and he is on Xarelto . 02/28/2023, the patient is doing extremely well. He is on 4 L of oxygen by nasal cannula. He remains on Lasix drip at 10 mg an hour. Urine output is adequate. There is improvement in the edema as the patient is undergoing daily sessions of hemodialysis. He has already undergone 3 sessions of hemodialysis the last being yesterday. He is currently on 4 L O2. His off pressors. The patient's creatinine is down to 1.8 with a BUN of 30. Sodium level is at 136. White cell count of 8.0 with a hemoglobin of 7.7. Repeat chest x-ray was done this morning and shows moderate-sized bilateral pleural effusion and as such the patient continues to have some excess volume his chest. Nephrology is on the case. Pressors are off. Cardiac rhythm is atrial fibrillation. Remains on anticoagulation. 03/01/2023, patient was transferred also the ICU yesterday and the patient is currently being seen on a medical floor. He is doing well. No specific complaints. No chest pain. He continues to be on a Lasix drip at 10 mg an hour. His left is no hemodialysis was done yesterday. He is on no pressors for now. His edema is also improving although he does have some residual edema lower extremity bilaterally. He is on no pressors. Is on anticoagulation. No altered mentation. No chest pain. No other new complaints otherwise for now. The patient is seen today 03/02/2023 in follow-up on the regular medical floor. He is currently sitting up in bed. Awake and alert in no acute distress. He is maintaining O2 saturations in the 90s on 4 L/m per nasal cannula. He is continued on a Lasix drip at 10 mg per hour. The plan is for hemodialysis today. Urine output currently at 1300 ML's in the past 24 hours. Sodium 140. Potassium 5.1. Bicarb 31. BUN 32. Creatinine 2.54. Glucose 109. He is continued on midodrine. Pressure stable. The patient is seen today 03/03/2023 in follow-up on the regular medical floor. He is currently sitting up in bed. Awake and alert in no acute distress. Maintaining O2 saturations in the 90s on 5 L/m per nasal cannula. Continues on a Lasix drip at 10 mg per hour. Currently in a -2.1 L balance. White count 11.2. Hemoglobin 8.7. Platelets 173. Sodium 137. Potassium 5.2. Bicarb 28. BUN 32. Creatinine 2.95. Glucose 160. He is continued on Xarelto. The patient is seen today 03/04/2023 in follow-up on the regular medical floor. He is awake and alert in no acute distress. Breathing easier today compared to yesterday. He did undergo hemodialysis with another 3 L of fluid removed. He has less edema. Today's labs are pending. He is making urine. He remains on Solu-Medrol. Continued on Xarelto for anticoagulation. The patient is seen today 03/05/2023 in follow-up on the regular medical floor. He is currently resting comfortably in bed. Maintaining O2 saturations in the 90s on 5 L/m per nasal cannula. Currently receiving iron replacement. No worse tonya shortness of breath, cough or congestion. He did receive hemodialysis again yesterday with 3 L ultrafiltration. As for ultrafiltration again today per nephrology. Plan is for permacath placement and removal of the femoral catheter tomorrow. White count 9.9. Hemoglobin 7.7. Sodium 131. Potassium 4.6. Bicarb 27. BUN 33. Creatinine 3.16. Objective - Vital Signs Vital signs: Vital Signs Temp 97.9 F 03/05/23 07:28 Pulse 63 03/05/23 08:25 Resp 17 08/10/23 08:25 BP 141/53 03/05/23 07:28 Pulse Ox 97 03/05/23 09:42 FiO2 100 02/27/23 08:19 Intake & Output 03/04/23 03/05/23 03/05/23 18:59 06:59 18:59 Intake Total 500 Output Total 3710 Balance -3210 Weight 120.5 kg Intake: Hemodialysis 500 Output: Urine 210 Hemodialysis 3500 Other: Voiding Method Indwelling Catheter Indwelling Catheter Indwelling Catheter # Voids 0 ABP, PAP, CO, CI - Last Documented Arterial Blood Pressure 132/44 - Exam GENERAL EXAM: Alert, pleasant 67-year-old male, comfortable in no apparent distress. On 5 L of oxygen by nasal cannula. HEAD: Normocephalic and atraumatic EYES: Normal reaction of pupils, equal size. NOSE: Clear with pink turbinates. THROAT: No erythema or exudates. NECK: No masses, no JVD. CHEST: No chest wall deformity. LUNGS: Equal air entry with bibasilar inspiratory crackles. No wheeze, rhonchi or dullness. No conversational dyspnea or accessory muscle use. CVS: S1 and S2 normal with no audible murmur, irregular rhythm. No extra heart sounds ABDOMEN: Obese abdomen, no hepatosplenomegaly, active bowel sounds, no guarding or rigidity. SPINE: No scoliosis or deformity SKIN: No rashes. Bilateral buttocks stage II pressure injuries. Do not appear infected. There is generalized ecchymosis. CENTRAL NERVOUS SYSTEM: No focal deficits, tone is normal in all 4 extremities. EXTREMITIES: Left femoral hemodialysis catheter in place. There is peripheral edema pitting edema of bilateral upper and lower extremities, +1. No clubbing, or cyanosis. Peripheral pulses are intact. - Labs CBC & Chem 7: 03/05/23 06:47 03/05/23 06:47 Labs: Abnormal Lab Results - Last 24 Hours (Table) 03/02/23 03/04/23 03/04/23 Range/Units 21:09 12:05 16:49 RBC (4.30-5.90) m/uL Hgb (13.0-17.5) gm/dL Hct (39.0-53.0) % MCV (80.0-100.0) fL MCHC (31.0-37.0) g/dL RDW (11.5-15.5) % Neutrophils # (1.3-7.7) k/uL Lymphocytes # (1.0-4.8) k/uL Sodium 134 L (137-145) mmol/L BUN 35 H (9-20) mg/dL Creatinine 3.37 H (0.66-1.25) mg/dL Glucose 203 H (74-99) mg/dL POC Glucose (mg/dL) 155 H (70-110) mg/dL Calcium 6.8 L (8.4-10.2) mg/dL U Free Lambda Light Ch 24.41 H (0.00-0.38) mg/dL 03/04/23 03/05/23 03/05/23 Range/Units 21:13 05:48 06:47 RBC 2.40 L (4.30-5.90) m/uL Hgb 7.7 L (13.0-17.5) gm/dL Hct 24.9 L (39.0-53.0) % MCV 103.5 H (80.0-100.0) fL MCHC 30.9 L (31.0-37.0) g/dL RDW 16.3 H (11.5-15.5) % Neutrophils # 8.1 H (1.3-7.7) k/uL Lymphocytes # 0.8 L (1.0-4.8) k/uL Sodium (137-145) mmol/L BUN (9-20) mg/dL Creatinine (0.66-1.25) mg/dL Glucose (74-99) mg/dL POC Glucose (mg/dL) 175 H 301 H (70-110) mg/dL Calcium (8.4-10.2) mg/dL U Free Lambda Light Ch (0.00-0.38) mg/dL 03/05/23 03/05/23 Range/Units 06:47 11:30 RBC (4.30-5.90) m/uL Hgb (13.0-17.5) gm/dL Hct (39.0-53.0) % MCV (80.0-100.0) fL MCHC (31.0-37.0) g/dL RDW (11.5-15.5) % Neutrophils # (1.3-7.7) k/uL Lymphocytes # (1.0-4.8) k/uL Sodium 131 L (137-145) mmol/L BUN 33 H (9-20) mg/dL Creatinine 3.16 H (0.66-1.25) mg/dL Glucose 262 H (74-99) mg/dL POC Glucose (mg/dL) 151 H (70-110) mg/dL Calcium 6.6 L (8.4-10.2) mg/dL U Free Lambda Light Ch (0.00-0.38) mg/dL Assessment and Plan Assessment: Acute hypoxemic respiratory failure secondary to exacerbation of diastolic congestive heart failure. Chest x-ray on arrival shows cardiomegaly with pulmonary vascular congestion and small bilateral pleural effusions. NT proBNP was elevated at 5360. Recent echocardiogram back in September, shows left ventricular hypertrophy, with a preserved left ventricular ejection fraction of 55-60%, and no valvular abnormalities reported. The patient has bilateral pleural effusion and currently is on 4 L of oxygen by nasal cannula and he continues to have bilateral pleural effusions. Showing improvement with hemodialysis/ultrafiltration and the patient remains on Demadex. During daily ultrafiltration. Plan is for permacath placement tomorrow. Bilateral pleural effusions, repeat chest x-ray shows small to moderate-sized pleural effusion bilaterally right more than left. Encephalopathy, recovered Hypotension, recovered. Atrial fibrillation with controlled ventricular rate, anticoagulated on Xarelto, rate is controlled for now Acute kidney injury, possibly cardiorenal versus ATN. Creatinine today is at 2.5, no hydronephrosis, the patient is undergoing hemodialysis with ultrafiltration and the patient is also on Lasix drip at 10 mg an hour Hyperkalemia, improved with hemodialysis. The patient also received medical management for hyperkalemia and his potassium level was refractory and as such required dialysis. The patient has multiple sessions of hemodialysis in the potassium level is normalized. Anemia, no reported acute blood loss. Mildly macrocytic Hypoalbuminemia and gross anasarca Pressure injuries, stage II, on bilateral buttocks Hyperlipidemia BPH Obesity, with a BMI of 39 kg/m Plan: The patient was seen and evaluated Medications and labs reviewed Currently stable on 5 L nasal cannula Titrate the FiO2 as tolerated Hemodialysis per nephrology Plan is for permacath placement tomorrow We'll continue to follow I have personally seen and examined the patient, performed the documentation and the assessment and plan as written. Number of minutes spent on the visit: 10.
[2023-03-05 15:15] LABS: DNA Double-Stranded Negative (Negative)
--- NOTE | 2023-03-05 15:43 | P.PN ---
Subjective Progress Note Date: 03/05/23 Principal diagnosis: monoclonal gammopathy At today's visit patient is resting comfortably in bed. Patient's breathing is even and unlabored. Denies shortness of breath and pain. Objective - Vital Signs Vital signs: Vital Signs Temp 97.0 F L 03/05/23 15:08 Pulse 89 03/05/23 15:08 Resp 16 03/05/23 15:08 BP 118/72 03/05/23 15:08 Pulse Ox 94 L 03/05/23 14:13 FiO2 100 02/27/23 08:19 Intake & Output 03/04/23 03/05/23 03/05/23 18:59 06:59 18:59 Intake Total 500 400 Output Total 3710 2400 Balance -3210 -1999 Weight 120.5 kg Intake: Hemodialysis 500 400 Output: Urine 210 Hemodialysis 3500 2400 Other: Voiding Method Indwelling Catheter Indwelling Catheter Indwelling Catheter # Voids 0 ABP, PAP, CO, CI - Last Documented Arterial Blood Pressure 132/44 - Constitutional General appearance: Present: no acute distress, obese - EENT Eyes: Present: anicteric sclerae, EOMI ENT: Present: hearing grossly normal - Respiratory Details: breathing even and unlabored - Cardiovascular Details: skin warm and dry - Peripheral edema leg Peripheral Edema Comment(s): diffuse extremity edema - Integumentary Integumentary: Present: pale. Absent: cyanotic, jaundiced - Neurologic Neurologic Comment(s): grossly intact - Musculoskeletal Musculoskeletal: Present: generalized weakness - Psychiatric Psychiatric: Present: A&O x's 3, appropriate affect, intact judgment & insight - Labs CBC & Chem 7: 03/05/23 06:47 03/05/23 06:47 Labs: Abnormal Lab Results - Last 24 Hours (Table) 03/02/23 03/04/23 03/04/23 Range/Units 21:09 16:49 21:13 RBC (4.30-5.90) m/uL Hgb (13.0-17.5) gm/dL Hct (39.0-53.0) % MCV (80.0-100.0) fL MCHC (31.0-37.0) g/dL RDW (11.5-15.5) % Neutrophils # (1.3-7.7) k/uL Lymphocytes # (1.0-4.8) k/uL Sodium (137-145) mmol/L BUN (9-20) mg/dL Creatinine (0.66-1.25) mg/dL Glucose (74-99) mg/dL POC Glucose (mg/dL) 155 H 175 H (70-110) mg/dL Calcium (8.4-10.2) mg/dL Albumin (3.5-5.0) g/dL U Free Lambda Light Ch 24.41 H (0.00-0.38) mg/dL 03/05/23 03/05/23 03/05/23 Range/Units 05:48 06:47 06:47 RBC 2.40 L (4.30-5.90) m/uL Hgb 7.7 L (13.0-17.5) gm/dL Hct 24.9 L (39.0-53.0) % MCV 103.5 H (80.0-100.0) fL MCHC 30.9 L (31.0-37.0) g/dL RDW 16.3 H (11.5-15.5) % Neutrophils # 8.1 H (1.3-7.7) k/uL Lymphocytes # 0.8 L (1.0-4.8) k/uL Sodium 131 L (137-145) mmol/L BUN 33 H (9-20) mg/dL Creatinine 3.16 H (0.66-1.25) mg/dL Glucose 262 H (74-99) mg/dL POC Glucose (mg/dL) 301 H (70-110) mg/dL Calcium 6.6 L (8.4-10.2) mg/dL Albumin (3.5-5.0) g/dL U Free Lambda Light Ch (0.00-0.38) mg/dL 03/05/23 03/05/23 Range/Units 06:47 11:30 RBC (4.30-5.90) m/uL Hgb (13.0-17.5) gm/dL Hct (39.0-53.0) % MCV (80.0-100.0) fL MCHC (31.0-37.0) g/dL RDW (11.5-15.5) % Neutrophils # (1.3-7.7) k/uL Lymphocytes # (1.0-4.8) k/uL Sodium (137-145) mmol/L BUN (9-20) mg/dL Creatinine (0.66-1.25) mg/dL Glucose (74-99) mg/dL POC Glucose (mg/dL) 151 H (70-110) mg/dL Calcium (8.4-10.2) mg/dL Albumin 2.0 L (3.5-5.0) g/dL U Free Lambda Light Ch (0.00-0.38) mg/dL Assessment and Plan (1) Anemia Current Visit: Yes Status: Acute Priority: Medium Code(s): D64.9 - ANEMIA, UNSPECIFIED SNOMED Code(s): 077881083 (2) IgG lambda monoclonal gammopathy Current Visit: Yes Status: Acute Priority: High Code(s): D47.2 - MONOCLONAL GAMMOPATHY SNOMED Code(s): 28124070 Plan: IgG lambda monoclonal gammopathy -IgG lambda seen on immunofixation, protein electrophoresis no measurable quantity reported, no M spike. 24 hours Urine PEP, immunofixation and K/L ordered, results pending L/K LC urine currently resulted is from random urine, not 24 hour collection. K/L LC elevated, but ratio normal. Will await results of 24 hour urine studies. Serum kappa/lambda light chains also elevated, but ratio normal. -Unclear at this time if a paraproteinemia is the cause for LAVERNE. Will provide further recommendations, pending workup Macrocytic anemia -Iron studies show a low saturation, ferritin 161. Would anticipate ferritin to be elevated because of comorbid conditions. With low saturation and normal ferritin of 161 patient is likely iron deficient. Nephrology has ordered parenteral iron. -Transfuse for a Hgb<7 .
[2023-03-05 16:02] LABS: Glucose,Whole Blood 212 mg/dL (70-110)
--- NOTE | 2023-03-05 16:55 | P.PN ---
Subjective Progress Note Date: 03/05/23 Patient is a pleasant 67-year-old male with a history of diastolic dysfunction normal ejection fraction the past came in with anasarca fluid overload and shortness of breath has been going on for about 2 weeks. Patient has significant anasarca involving the entire abdomen bilateral lower extremity is 4 + pitting pedal edema and edema of the bilateral upper extremity is. Patient has a baseline creatinine of around 1.30-1.5 present creatinine is 2.3 2. Patient is hypotensive facet of troponin is negative without any significant EKG changes. Patient does have history of atrial fibrillation presently rate controlled on atenolol which is being held at this time because of hypotension patient also has serum potassium of around 6.8 presently patient was given IV insulin and calcium gluconate. Patient is presently on norepinephrine drip, Lasix drip. Liver enzymes are within normal limits. Patient doesn't have any leukocytosis. Patient doesn't have any fever chills denied any cough with the significant sputum production. 02/26/2023 Patient is seen and evaluated in follow-up this morning in the ICU with multiple medical consultations following. Patient with continued hyperkalemia maintained on Lasix drip with continued hypotension requiring emergent dialysis catheter and receiving dialysis currently. Patient is also maintained on a nonrebreather for continued shortness of breath. Patient is very lethargic although arousable but fatigues very easily. Urine output has improved slightly. at bedside with questions and concerns were answered. Patient is currently afebrile continues with shortness of breath denies chest pain and is requiring some pressor support. Kidney functions as well as potassium is improved since dialysis. Overall prognosis is extremely guarded. 02/27/2023 Patient is seen in follow-up continues to be in the ICU currently receiving hemodialysis and tolerating. Continues on low-dose Levophed which is currently being weaned. Continues on Lasix drip at 10 mL's per hour with some improvement in urine output. Patient was on 15 L high flow this morning along with nasal cannula and has titrated down to 8 L high flow and recommended weaning FiO2 as tolerated. Plan is for hemodialysis daily for now and will follow-up with labs. Kidney functions are improving and BUN is 37 with a creatinine of 1.8. Hemoglobin currently stable at 8.0 most likely anemia of chronic disease. Patient is afebrile report some improvement in his shortness of breath although continues to be short of breath. Patient extremely weak and does have history of chronic back pain and was scheduled to have outpatient procedure. Patient with significant upper and lower extremity edema pitting with minimal improvement. 02/28/2023 Patient remains in intensive care unit and continues on hemodialysis currently undergoing this AM at bedside. Noted that he has chronic low back at baseline and he mostly transfers with a walker at baseline he was scheduled for a lumbar injection outpatient at [facility] but was not cleared by cardiology to go off his medications. PT/OT will be consulted. He has adequte urine output. He remains no lasix gtt. He has been weaned off vasopressors and blood pressure is stable. Patient received albumin. Chest xray from this AM has not been resulted yet. Sodium is 136, potassium 4.2, BUN 30, creatinine 1.87 which is stable. 03/01/2023 Patient has been moved out of the intensive care unit and is currently evaluated on the medical floor. He does have a sacral stage II pressure injury and this is causing him some discomfort. He is being repositioned and would recommend doing this every 2-3 hours. He is on a Lasix drip at 10 mL's per hour he has a urine output of 4.9 L in the last 24 hours. He continues with significant peripheral edema he has +2 pitting up to his thighs and scrotum as well as his upper extremities. His creatinine is increased up to 2.24 today. Vitamin D level found to be low at 10.4 and patient is started on oral supplementation. 03/02/2023 Patient is seen and evaluated in follow-up today awaiting to receive dialysis today. Patient being followed by nephrology and will discuss further about outpatient dialysis as patient continues with temporary catheter. Patient remains on Lasix drip and diuresis and well and continues with significant overload. Patient with bullous pemphigus and was evaluated by wound care recommending wound care as patient also has decubitus ulcers. Will consult infectious disease and appreciate input and recommendations regarding concerns for possible underlying infection of the left forearm. Will add some IV steroids as well and monitor and recommend Accu-Cheks before meals and at bedtime and will use sliding scale as needed. Patient is currently afebrile with no reports of worsening shortness of breath or chest pains. Patient is currently maintaining good oxygen saturations above 95% on 4-6 L via nasal cannula. 03/03/2023 Patient is seen and evaluated today with multiple consultations following. Hematology/Oncology consulted and has ordered 24-hour urine along with additional testing which is pending. Patient is maintained on Lasix 80 mg IV push twice daily and metolazone being ordered. Patient continues with significant volume overload with no plans of dialysis today. Patient continues with temporary dialysis catheter and will need to discuss further with nephrology if patient will require permanent dialysis catheter and outpatient hemodialysis to be arranged. Patient with some weakness and recommend physical therapy evaluation daily. Patient also continued on local wound care of the buttocks area and has history of bullous pemphigus and infectious disease consulted. Patient started on low-dose IV steroids and will continue with Accu- Cheks before meals and at bedtime and monitor for some improvement. Hemoglobin is stable at 8.7 and platelets are 173. Sodium is 137 with a potassium of 5.2, BUN is 32 with a creatinine of 2.95, magnesium is 2.1. Patient is currently afebrile with no reports of chest pain or worsening shortness of breath. Patient is diuresing and currently maintained on 5 L via nasal cannula with an oxygen saturation of 98%. Recommend weaning FiO2 as tolerated as patient does not normally wear oxygen outpatient. 03/04/2023 Patient is seen and evaluated in follow-up today currently awaiting labs which are pending at this time. Per nursing staff no further reports of blood noted in the urine and will resume anticoagulant. Nephrology following awaiting follow-up labs and awaiting to see if hemodialysis is to be done today. Patient reports to feeling better currently maintained on 5 L and denies worsening shortness of breath. Patient is also continued on IV steroids and bullous pemp higus lesions appear to be somewhat improved. We'll continue for another day along with sliding scale and Accu-Cheks and titrate down on the dose of steroids. Continue with local wound care. Patient also being followed by physical therapy and possible discussion of ECF with case management following. Urology has been consulted for the hematuria although hematuria has resolved and will continue with indwelling Barkley catheter for intake and output monitoring and monitor for any further bleeding. 03/05/2023 Patient is seen and evaluated this morning maintained on 5-6 L of oxygen via nasal cannula with oxygen saturations above 90%. Multiple medical consultations including vascular surgery consulted again as patient will be requiring permanent catheter placement for hemodialysis outpatient. Patient to receive ultrafiltration today as well as tomorrow. Plan is for permacath placement tomorrow and will hold anticoagulation for now. Hemoglobin is stable at 7.7, sodium is 131 with a potassium of 4.6, BUN is 33 and creatinine is 3.16. Blood sugars remain elevated at times and will continue current regimen. Patient is receiving IV steroids and will discontinue tomorrow. Transition to oral steroid taper. Patient is afebrile with no reports of chest pain or worsening shortness of breath. Patient tolerating diet and will be nothing by mouth at midnight for dialysis catheter placement. Hematology/oncology following as well awaiting labs that were sent out. Per case management plan is for home with home care and arranging for outpatient dialysis. Recommend physical therapy daily. Review of systems: Constitutional: no reports of fatigue, no fever, or chills Cardiovascular: No reports of chest pain or palpitations Respiratory: reports some improvement in shortness of breath GI: No reports of nausea, vomiting, or diarrhea : No reports of dysuria or retention Neurovascular: reports of generalized weakness All medications have been reviewed PHYSICAL EXAMINATION: GENERAL: The patient is awake, alert and oriented x2-3. Ill-appearing, elderly appearing, morbidly Obese, anasarca HEENT: Pupils are round and equally reacting to light. EOMI. No scleral icterus. No conjunctival pallor. Normocephalic, atraumatic. No pharyngeal erythema. No thyromegaly. CARDIOVASCULAR: S1 and S2 muffled PULMONARY: Diminished breath sounds bilaterally with some coarse rhonchi noted, faint crackles at the bases noted ABDOMEN: Soft, nontender, nondistended, normoactive bowel sounds. No palpable organomegaly. MUSCULOSKELETAL: No joint swelling or deformity. EXTREMITIES: No cyanosis, clubbing, anasarca, pitting pedal edema as mentioned above edema of the abdominal wall. NEUROLOGICAL: Gross neurological examination did not reveal any focal deficits. SKIN: Stage II pressure ulcers, pale Assessment: -Acute on chronic diastolic heart failure -Cardiogenic shock off pressor support and out of the ICU -Acute hypoxic respiratory failure: Secondary to heart failure exacerbation. -Atrial fibrillation, paroxysmal patient is rate controlled at this time -Hematuria, most likely related to trauma from indwelling Barkley catheter, improving -Acute kidney injury with acute tubular necrosis secondary to hypotension and cardiorenal syndrome, improving requiring emergent dialysis -Chronic kidney disease probably secondary to nephrosclerosis -Hyperkalemia secondary to acute renal failure, requiring dialysis, improving -Macrocytic anemia -Pressures ulcers stage II bilateral buttocks, present on admission -Morbid obesity with a BMI of 40.9, -possible sleep apnea, will need outpatient sleep study -hyperlipidemia history -Benign prostatic hypertrophy, patient is on tamsulosin which is being held temporally at this time because of shock but need to be resumed once his blood pressure improves as soon as possible -Bullous pemphigus has a wound in the left lower extremity, continue local wound care -Vitamin D deficiency -Chronic low back pain -GI prophylaxis -DVT prophylaxis: On anticoagulation as mentioned above -Full code Plan: Patient continues to be on Demadex with nephrology following and plan is to continue dialysis for ultrafiltration. Vascular surgery consulted for removal of the temporary catheter and placement of permacath recommending holding anticoagulation and will be undergoing catheter placement tomorrow. Patient will be nothing by mouth at midnight Patient to be followed by PT/OT therapy daily as patient reports plans on going home with although patient is significantly weak would likely benefit from ECF. Patient continues to report he would like to go home. Continue with renal diet and strict intake and output. Wean FiO2 as tolerated currently maintained on 5 L. Patient does not wear oxygen outpatient. Hematology/Oncology following per nephrology with abnormal lab values and pending at this time and undergoing further workup, 24-hour urine pending Patient did have some noted hematuria and anticoagulation was on hold and urology consulted. Urology evaluated the patient most likely secondary to trauma from indwelling Barkley catheter. Will continue to hold Xarelto for now as patient is undergoing dialysis catheter placement in the a.m. Follow-up labs ordered for a.m. Recommend turning the patient every 2-3 hours and frequent offloading of the sacral area with continued wound care Patient was started on low-dose IV steroids for bullous pemphigus and will continue with Accu-Cheks before meals and at bedtime and sliding scale. Patient showing some improvement and will titrate the dose to oral steroid taper starting tomorrow Due to multiple complex medical issues, prognosis is extremely guarded The impression and plan of care has been dictated by Sandra Ayala, Nurse Practitioner as directed. Dr. Jj MD I have performed a history and examination and MDM of this patient, discussed the same with the dictator, and agree with the dictator's assessment and plan as written ,documented as a scribe. Based on total visit time, I have performed more than 50% of the visit. Objective - Vital Signs Vital signs: Vital Signs Temp 97.0 F L 03/05/23 15:08 Pulse 89 03/05/23 15:08 Resp 16 03/05/23 15:08 BP 118/72 03/05/23 15:08 Pulse Ox 94 L 03/05/23 14:13 FiO2 100 02/27/23 08:19 Intake & Output 03/04/23 03/05/23 03/05/23 18:59 06:59 18:59 Intake Total 500 400 Output Total 3710 3050 Balance -3210 -2650 Weight 120.5 kg Intake: Hemodialysis 500 400 Output: Urine 210 650 Uretheral (Barkley) 650 Hemodialysis 3500 2400 Other: Voiding Method Indwelling Catheter Indwelling Catheter Indwelling Catheter # Voids 0 ABP, PAP, CO, CI - Last Documented Arterial Blood Pressure 132/44 - Labs CBC & Chem 7: 03/05/23 06:47 03/05/23 06:47 Labs: Abnormal Lab Results - Last 24 Hours (Table) 03/02/23 03/04/23 03/04/23 Range/Units 21:09 16:49 21:13 RBC (4.30-5.90) m/uL Hgb (13.0-17.5) gm/dL Hct (39.0-53.0) % MCV (80.0-100.0) fL MCHC (31.0-37.0) g/dL RDW (11.5-15.5) % Neutrophils # (1.3-7.7) k/uL Lymphocytes # (1.0-4.8) k/uL Sodium (137-145) mmol/L BUN (9-20) mg/dL Creatinine (0.66-1.25) mg/dL Glucose (74-99) mg/dL POC Glucose (mg/dL) 155 H 175 H (70-110) mg/dL Calcium (8.4-10.2) mg/dL Albumin (3.5-5.0) g/dL U Free Lambda Light Ch 24.41 H (0.00-0.38) mg/dL 03/05/23 03/05/23 03/05/23 Range/Units 05:48 06:47 06:47 RBC 2.40 L (4.30-5.90) m/uL Hgb 7.7 L (13.0-17.5) gm/dL Hct 24.9 L (39.0-53.0) % MCV 103.5 H (80.0-100.0) fL MCHC 30.9 L (31.0-37.0) g/dL RDW 16.3 H (11.5-15.5) % Neutrophils # 8.1 H (1.3-7.7) k/uL Lymphocytes # 0.8 L (1.0-4.8) k/uL Sodium 131 L (137-145) mmol/L BUN 33 H (9-20) mg/dL Creatinine 3.16 H (0.66-1.25) mg/dL Glucose 262 H (74-99) mg/dL POC Glucose (mg/dL) 301 H (70-110) mg/dL Calcium 6.6 L (8.4-10.2) mg/dL Albumin (3.5-5.0) g/dL U Free Lambda Light Ch (0.00-0.38) mg/dL 03/05/23 03/05/23 03/05/23 Range/Units 06:47 11:30 16:01 RBC (4.30-5.90) m/uL Hgb (13.0-17.5) gm/dL Hct (39.0-53.0) % MCV (80.0-100.0) fL MCHC (31.0-37.0) g/dL RDW (11.5-15.5) % Neutrophils # (1.3-7.7) k/uL Lymphocytes # (1.0-4.8) k/uL Sodium (137-145) mmol/L BUN (9-20) mg/dL Creatinine (0.66-1.25) mg/dL Glucose (74-99) mg/dL POC Glucose (mg/dL) 151 H 212 H (70-110) mg/dL Calcium (8.4-10.2) mg/dL Albumin 2.0 L (3.5-5.0) g/dL U Free Lambda Light Ch (0.00-0.38) mg/dL
[2023-03-05 20:46] LABS: Glucose,Whole Blood 220 mg/dL (70-110)
[2023-03-06] MEDS: HYDROcodone/APAP 5-325MG 1 EACH TAB PO PRN ×4 (03:34→20:45)
[2023-03-06 06:11] LABS: Glucose,Whole Blood 193 mg/dL (70-110)
[2023-03-06] MEDS: INSULIN ASPART (NovoLOG) 100 UNIT/ML VIAL SQ SCH ×4 (06:37→20:45)
[2023-03-06] MEDS: MIDODRINE 5 MG TAB PO SCH ×3 (09:05→17:56)
[2023-03-06] MEDS: PANTOPRAZOLE 40 MG/10 ML VIAL IVP SCH (09:09)
[2023-03-06] MEDS: methylPREDNISolone SOD SUCCI 40 MG/ML 1 ML VIAL IV SCH (09:09)
[2023-03-06] MEDS: SODIUM FERRIC GLUCONAT-SUCROSE 125 MG in SODIUM CHLORIDE 0.9% 100 ML IVPB SCH (09:10)
--- NOTE | 2023-03-06 10:15 | XR ---
EXAMINATION TYPE: XR chest 1V portable DATE OF EXAM: 03/06/2023 HISTORY: Shortness of breath. COMPARISON: 03/03/2023 TECHNIQUE: Single view of the chest is submitted. FINDINGS: Demonstrated are scattered senescent parenchymal change. Persistent basilar atelectasis, infiltrate and/or effusion. No significant change appreciated. The heart is stable. Hilar and mediastinal structures are within normal limits. Degenerative changes are seen of the dorsal spine. IMPRESSION: 1. Stable chest
--- NOTE | 2023-03-06 10:46 | P.PN ---
Subjective Progress Note Date: 03/06/23 I am seeing this patient in new consultation today 02/25/2023 for suspected acute exacerbation of diastolic congestive heart failure. Patient is a 67-year-old white male with past medical history significant for atrial fibrillation, hyperlipidemia, hypertension, diabetes mellitus type 2, DVT, BPH, bullous pemphigoid and chronic back pain. 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 He has been having shortness of breath that has progressively worsened over the last couple weeks. It is especially worse on exertion, and states he can only walk approximately 5 feet. He sleeps in a recliner at home. He's had progressively worsening generalized swelling. Denies any chest pain, heart palpitations, syncope. Chest x-ray on arrival showed cardiomegaly with pulmonary vascular congestion and bilateral pleural effusions. Patient is currently sitting up in bed, on 4 L/m nasal cannula, and is fairly comfortable. He does have gross anasarca. He is pale. Blood pressure is borderline. He has been started on midodrine, and may have to be transferred to the intensive care unit for norepinephrine infusion. Last blood pressure was 90/50. ECG shows atrial fibrillation with controlled ventricular rate. Currently receiving Lasix 40 mg 3 times a day. Barkley catheter has been inserted for accurate intake and output. Patient does have a component of acute kidney injury. He was hyperkalemic, with a potassium of 6.5 on arrival, and was given 10 units of regular insulin, 1 amp D50 W, 1 amp sodium bicarb, and Lokelma. Potassium level did come down to 5.8. BMP on arrival shows sodium 138, potassium down to 5.8, chloride of 112, serum bicarbonate 24, BUN 62, creatinine 2.17, glucose 84. CBC on arrival shows a WBC count of 5.7, hemoglobin 9.5, hematocrit 30.1, platelets 230. He is anemic, and his Xarelto dose was reportedly increased for A. fib prophylaxis back in September 2022. He was found to have new onset A. fib. He denies any bloody bowel movements or melena. Echocardiogram done at that time showed a normal ejection fraction of 55-60% without any valvular abnormality. NT proBNP was elevated at 5360. As stated above, patient has been hypotensive, and may require transfer to the intensive care unit on Levophed if no improvement with midodrine. On today's evaluation of of 02/26/2023, the patient is being seen in follow-up in the intensive care unit. He had a very complicated course yesterday. Note that he continued to have issues with hyperkalemia that was unresponsive to medical treatment. The patient also continued to have difficulties and hypotension, massive fluid overload and low urine output. He was not responding adequately to the diuretics. He was on high-dose pressors and his norepinephrine at a certain stage was running as high as 0.45 mcg/kg/m. As such, it was decided to proceed with hemodialysis. His control his potassium. No ultrafiltration was done. Dialysis was completed a potassium level improved and it dropped down to 4.9 and this morning is up to 5.1. Noted the patient was having episodes of sinus bradycardia yesterday due to his hyperkalemia. His cur rent cardiac rhythm is sinus. Rate is 65. His norepinephrine has been weaned down to 0.14 mcg/kg/m. He remains on a Lasix drip and is producing somewhere between 40-50 mL of urine output. He continues to have massive fluid overload and fluid weeping from the skin surface of his lower extremities. BUN is 44 with a creatinine of 1.9 and a sodium level is at 139 and a potassium level of 5.1. The patient was at 8.4 with a hemoglobin of 8.7. His ultrasound of the abdomen and the kidneys were done. The patient had no major abnormalities. His common bile duct measured 9 mm in size. No evidence of any hydronephrosis. His echocardiogram was also repeated yesterday and the patient was found to have left ventricular ejection fraction of 55-60%. He had mild RV dilatation. Mild pulmonary hypertension. No significant valvular abnormalities. The patient had a repeat chest x-ray today that showed bilateral pleural effusions and significant volume overload. The patient is currently on 100% nonrebreather facemask. Is arousable and is communicating and the is at the bedside. He does have a dialysis catheter in his left femoral vein. He also has a triple- lumen cath in his left subclavian vein. On today's evaluation of 02/27/2023, the patient is alert and awake and communicating. There is no significant improvement in his neurologic status since yesterday. In same time, there is improvement in volume status. The patient underwent already 2 sessions of hemodialysis and yesterday he received some ultrafiltration. The patient remains on IV albumin 12.5 g, 25%, every 8 hours and the patient is also on Lasix 10 mg an hour. Urine output is in order of 100 mL an hour. The patient has a BUN of 37 with a creatinine of 1.8. Potassium levels down to 4.4. The white cell cause of 9.1 with a hemoglobin of 8.0. His cardiac rhythm is still in nature fibrillation. His oxygenation is stable and the patient is currently on nasal cannula at 15 L. No major signs of any respiratory distress at this point. Hemoglobin is at 8.0. At the same time, the patient is on low-dose pressors and the patient is weaned off and his norepinephrine. norepinephrine is running at 0.08 mcg/kg/m. he remains on anticoagulation and he is on Xarelto . 02/28/2023, the patient is doing extremely well. He is on 4 L of oxygen by nasal cannula. He remains on Lasix drip at 10 mg an hour. Urine output is adequate. There is improvement in the edema as the patient is undergoing daily sessions of hemodialysis. He has already undergone 3 sessions of hemodialysis the last being yesterday. He is currently on 4 L O2. His off pressors. The patient's creatinine is down to 1.8 with a BUN of 30. Sodium level is at 136. White cell count of 8.0 with a hemoglobin of 7.7. Repeat chest x-ray was done this morning and shows moderate-sized bilateral pleural effusion and as such the patient continues to have some excess volume his chest. Nephrology is on the case. Pressors are off. Cardiac rhythm is atrial fibrillation. Remains on anticoagulation. 03/01/2023, patient was transferred also the ICU yesterday and the patient is currently being seen on a medical floor. He is doing well. No specific complaints. No chest pain. He continues to be on a Lasix drip at 10 mg an hour. His left is no hemodialysis was done yesterday. He is on no pressors for now. His edema is also improving although he does have some residual edema lower extremity bilaterally. He is on no pressors. Is on anticoagulation. No altered mentation. No chest pain. No other new complaints otherwise for now. The patient is seen today 03/02/2023 in follow-up on the regular medical floor. He is currently sitting up in bed. Awake and alert in no acute distress. He is maintaining O2 saturations in the 90s on 4 L/m per nasal cannula. He is continued on a Lasix drip at 10 mg per hour. The plan is for hemodialysis today. Urine output currently at 1300 ML's in the past 24 hours. Sodium 140. Potassium 5.1. Bicarb 31. BUN 32. Creatinine 2.54. Glucose 109. He is continued on midodrine. Pressure stable. The patient is seen today 03/03/2023 in follow-up on the regular medical floor. He is currently sitting up in bed. Awake and alert in no acute distress. Maintaining O2 saturations in the 90s on 5 L/m per nasal cannula. Continues on a Lasix drip at 10 mg per hour. Currently in a -2.1 L balance. White count 11.2. Hemoglobin 8.7. Platelets 173. Sodium 137. Potassium 5.2. Bicarb 28. BUN 32. Creatinine 2.95. Glucose 160. He is continued on Xarelto. The patient is seen today 03/04/2023 in follow-up on the regular medical floor. He is awake and alert in no acute distress. Breathing easier today compared to yesterday. He did undergo hemodialysis with another 3 L of fluid removed. He has less edema. Today's labs are pending. He is making urine. He remains on Solu-Medrol. Continued on Xarelto for anticoagulation. The patient is seen today 03/05/2023 in follow-up on the regular medical floor. He is currently resting comfortably in bed. Maintaining O2 saturations in the 90s on 5 L/m per nasal cannula. Currently receiving iron replacement. No worse tonya shortness of breath, cough or congestion. He did receive hemodialysis again yesterday with 3 L ultrafiltration. As for ultrafiltration again today per nephrology. Plan is for permacath placement and removal of the femoral catheter tomorrow. White count 9.9. Hemoglobin 7.7. Sodium 131. Potassium 4.6. Bicarb 27. BUN 33. Creatinine 3.16. The patient is seen today 03/06/2023 in follow-up on the regular medical floor. He is awake and alert in no acute distress. Feeling better today compared to yesterday. Requiring 6-7 liters high flow nasal cannula with O2 saturations in the mid to upper 90s. Follow-up chest x-ray shows similar findings with bilateral pleural effusions right greater than left. He is continuing to receive daily dialysis for ultrafiltration. Plan is for permacath placement today. Blood sugar 193. Objective - Vital Signs Vital signs: Vital Signs Temp 97.7 F 03/06/23 09:19 Pulse 82 03/06/23 09:19 Resp 20 03/06/23 09:19 BP 127/75 03/06/23 09:19 Pulse Ox 97 03/06/23 09:19 FiO2 100 02/27/23 08:19 Intake & Output 03/05/23 03/06/23 03/06/23 18:59 06:59 18:59 Intake Total 400 240 Output Total 3350 625 Balance -2950 -385 Weight 119.5 kg Intake: Oral 240 Hemodialysis 400 Output: Urine 950 625 Uretheral (Barkley) 650 Hemodialysis 2400 Other: Voiding Method Indwelling Catheter Indwelling Catheter Indwelling Catheter ABP, PAP, CO, CI - Last Documented Arterial Blood Pressure 132/44 - Exam GENERAL EXAM: Alert, pleasant 67-year-old male, comfortable in no apparent distress. On 7 L of oxygen by nasal cannula. HEAD: Normocephalic and atraumatic EYES: Normal reaction of pupils, equal size. NOSE: Clear with pink turbinates. THROAT: No erythema or exudates. NECK: No masses, no JVD. CHEST: No chest wall deformity. LUNGS: Equal air entry with bibasilar inspiratory crackles. Right greater than left. No wheeze, rhonchi or dullness. No conversational dyspnea or accessory muscle use. CVS: S1 and S2 normal with no audible murmur, irregular rhythm. No extra heart sounds ABDOMEN: Obese abdomen, no hepatosplenomegaly, active bowel sounds, no guarding or rigidity. SPINE: No scoliosis or deformity SKIN: No rashes. Bilateral buttocks stage II pressure injuries. Do not appear infected. There is generalized ecchymosis. CENTRAL NERVOUS SYSTEM: No focal deficits, tone is normal in all 4 extremities. EXTREMITIES: Left femoral hemodialysis catheter in place. There is peripheral edema pitting edema of bilateral upper and lower extremities, +1. No clubbing, or cyanosis. Peripheral pulses are intact. - Labs CBC & Chem 7: 03/05/23 06:47 03/05/23 06:47 Labs: Abnormal Lab Results - Last 24 Hours (Table) 03/05/23 03/05/23 03/05/23 Range/Units 06:47 11:30 16:01 POC Glucose (mg/dL) 151 H 212 H (70-110) mg/dL Albumin 2.0 L (3.5-5.0) g/dL 03/05/23 03/06/23 Range/Units 20:44 06:10 POC Glucose (mg/dL) 220 H 193 H (70-110) mg/dL Albumin (3.5-5.0) g/dL Assessment and Plan Assessment: Acute hypoxemic respiratory failure secondary to exacerbation of diastolic congestive heart failure. Chest x-ray on arrival shows cardiomegaly with pulmonary vascular congestion and small bilateral pleural effusions. NT proBNP was elevated at 5360. Recent echocardiogram back in September, shows left ventricular hypertrophy, with a preserved left ventricular ejection fraction of 55-60%, and no valvular abnormalities reported. Chest x-ray continues to show bilateral pleural effusions right greater than left and currently is on 7 L of oxygen by nasal cannula. Remains on daily hemodialysis/ultrafiltration and the patient remains on Demadex. Plan is for permacath placement today. Bilateral pleural effusions, repeat chest x-ray shows small to moderate-sized pleural effusion bilaterally right greater than left. Encephalopathy, recovered Hypotension, recovered Bullous pemphigus Atrial fibrillation with controlled ventricular rate, anticoagulated on Xarelto, rate is controlled for now Acute kidney injury, possibly cardiorenal versus ATN. Creatinine today is at 2.5, no hydronephrosis, the patient is undergoing hemodialysis with ultrafiltration and the patient is also on Lasix drip at 10 mg an hour Hyperkalemia, improved with hemodialysis. The patient also received medical management for hyperkalemia and his potassium level was refractory and as such required dialysis. The patient has multiple sessions of hemodialysis in the potassium level is normalized. Anemia, no reported acute blood loss. Mildly macrocytic Hypoalbuminemia and gross anasarca Pressure injuries, stage II, on bilateral buttocks Hyperlipidemia BPH Obesity, with a BMI of 39 kg/m Plan: The patient was seen and evaluated Medications and labs reviewed Chest x-ray reviewed Titrate the FiO2 as tolerated Hemodialysis per nephrology Plan is for permacath placement today We'll continue to follow I have personally seen and examined the patient, performed the documentation and the assessment and plan as written. Number of minutes spent on the visit: 10.
[2023-03-06 11:20] LABS: Glucose,Whole Blood 159 mg/dL (70-110)
[2023-03-06] MEDS ORDERED: SODIUM FERRIC GLUCONAT-SUCROSE 125 MG in SODIUM CHLORIDE 0.9% 100 ML IVPB ONE (11:30)
--- NOTE | 2023-03-06 11:38 | P.PN ---
Subjective Patient is seen in follow-up for acute kidney injury. Maintained on torsemide. Urine output better. It is documented as 1.575 L in the last 24 hours. Tolerated 2.4 L ultrafiltration yesterday. Edema improving. Hemodynamically stable. Vital signs are stable. General: No acute distress. HEENT: Head exam is unremarkable. On nasal cannula. LUNGS: No audible rhonchi or wheezes. HEART: Rate and Rhythm are regular. ABDOMEN: Soft, nontender. EXTREMITITES: 2+ edema. Objective - Vital Signs Vital signs: Vital Signs Temp 97.7 F 03/06/23 09:19 Pulse 82 03/06/23 09:19 Resp 20 03/06/23 09:19 BP 127/75 03/06/23 09:19 Pulse Ox 97 03/06/23 09:19 FiO2 100 02/27/23 08:19 Intake & Output 03/05/23 03/06/23 03/06/23 18:59 06:59 18:59 Intake Total 400 240 Output Total 3350 625 Balance -2950 -385 Weight 119.5 kg Intake: Oral 240 Hemodialysis 400 Output: Urine 950 625 Uretheral (Barkley) 650 Hemodialysis 2400 Other: Voiding Method Indwelling Catheter Indwelling Catheter Indwelling Catheter ABP, PAP, CO, CI - Last Documented Arterial Blood Pressure 132/44 - Labs CBC & Chem 7: 03/05/23 06:47 03/05/23 06:47 Labs: Abnormal Lab Results - Last 24 Hours (Table) 03/05/23 03/05/23 03/05/23 Range/Units 06:47 16:01 20:44 POC Glucose (mg/dL) 212 H 220 H (70-110) mg/dL Albumin 2.0 L (3.5-5.0) g/dL 03/06/23 03/06/23 Range/Units 06:10 11:18 POC Glucose (mg/dL) 193 H 159 H (70-110) mg/dL Albumin (3.5-5.0) g/dL Assessment and Plan Plan: Assessment: 1. Acute kidney injury secondary to ATN secondary to hypotension and cardiorenal syndrome. Hemodialysis started 02/25/2023. Creatinine as low as 1.02 dated 10/20/2022. No hydronephrosis noted on ultrasound. 2. Acute on chronic diastolic CHF. 3. Volume overload. Improving with ultrafiltration. 4. Left kidney nodule. This will need to be monitored outpatient. 5. Acute hypoxic respiratory failure. 6. Hyperkalemia secondary to acute kidney injury and LATONIA inhibitor use. Improved post dialysis. 7. Hypocalcemia secondary to hypoalbuminemia. Corrected calcium near normal. Vitamin D deficiency noted. On Drisdol. PTH 139. Phosphorus 3.8. 8. Anemia. Iron deficiency noted. Receiving IV iron. Also on Aranesp. 9. 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 Hematology following. Plan: Maintain torsemide. Continue with daily dialysis mostly for ultrafiltration. Vascular surgery notified for permacath placement and removal of femoral catheter. Scheduled for today. Monitor for renal recovery. Outpatient dialysis being set up by nurse case manager. He will be maintained on Thursday schedule. Serologies negative. Hold midodrine for systolic blood pressure above 115.
[2023-03-06] MEDS ORDERED: LIDOCAINE 1% INJ 10MG/ML (20 ML MDV) SQ ONE (12:28)
[2023-03-06] MEDS ORDERED: MIDAZOLAM 2 MG/2 ML VIAL IVP ONE (12:30)
[2023-03-06] MEDS ORDERED: fentaNYL (PF) 50 MCG/ML 2 ML AMP IVP ONE (12:34)
[2023-03-06] MEDS ORDERED: IV FLUID CONTINUATION 1,000 ML IV ONE (12:45)
--- NOTE | 2023-03-06 12:55 | P.PCN ---
Description of Procedure: Preoperative diagnoses is acute chronic renal failure Same Procedure #1 ultrasound-guided 23 same dialysis cath catheter placed at right jugular approach #2 of the left femoral temporary dialysis catheter Procedure brought to the [employer] Jennifer of the neck and chest was prepped and draped applied sterile manner and also the left groin were prepped and draped applied 1% lidocaine were infiltrated ultrasound-guided micropuncture introduced right jugular vein and micropuncture guidewire was passed. Then 4-Greenlandic dilator advanced top the guidewire. With possible regular guidewire which was parked at the inferior vena cava after that incision was made on the anterior chest wall tendon was created through the tunnel we brought 23 same dialysis catheter dilator was across on the top the guidewire then sheath was advanced top the guidewire. Through the sheath we did use dialysis catheter sheath was removed tip of catheter superior vena cava at the junction flush with heparin saline and Hep-Lock secured with 3-0 nylon dressing applied patient for the procedure well and left groin incision was prepped stitches was removed catheter was removed pressure was held patient are to the procedure well plan is patient will do the x-ray of the chest were catheter placement
[2023-03-06] MEDS: RIVAROXABAN 20 MG TAB PO SCH (13:29)
--- NOTE | 2023-03-06 15:19 | P.PN ---
Subjective Progress Note Date: 03/06/23 Patient is a pleasant 67-year-old male with a history of diastolic dysfunction normal ejection fraction the past came in with anasarca fluid overload and shortness of breath has been going on for about 2 weeks. Patient has significant anasarca involving the entire abdomen bilateral lower extremity is 4 + pitting pedal edema and edema of the bilateral upper extremity is. Patient has a baseline creatinine of around 1.30-1.5 present creatinine is 2.3 2. Patient is hypotensive facet of troponin is negative without any significant EKG changes. Patient does have history of atrial fibrillation presently rate controlled on atenolol which is being held at this time because of hypotension patient also has serum potassium of around 6.8 presently patient was given IV insulin and calcium gluconate. Patient is presently on norepinephrine drip, Lasix drip. Liver enzymes are within normal limits. Patient doesn't have any leukocytosis. Patient doesn't have any fever chills denied any cough with the significant sputum production. 02/26/2023 Patient is seen and evaluated in follow-up this morning in the ICU with multiple medical consultations following. Patient with continued hyperkalemia maintained on Lasix drip with continued hypotension requiring emergent dialysis catheter and receiving dialysis currently. Patient is also maintained on a nonrebreather for continued shortness of breath. Patient is very lethargic although arousable but fatigues very easily. Urine output has improved slightly. at bedside with questions and concerns were answered. Patient is currently afebrile continues with shortness of breath denies chest pain and is requiring some pressor support. Kidney functions as well as potassium is improved since dialysis. Overall prognosis is extremely guarded. 02/27/2023 Patient is seen in follow-up continues to be in the ICU currently receiving hemodialysis and tolerating. Continues on low-dose Levophed which is currently being weaned. Continues on Lasix drip at 10 mL's per hour with some improvement in urine output. Patient was on 15 L high flow this morning along with nasal cannula and has titrated down to 8 L high flow and recommended weaning FiO2 as tolerated. Plan is for hemodialysis daily for now and will follow-up with labs. Kidney functions are improving and BUN is 37 with a creatinine of 1.8. Hemoglobin currently stable at 8.0 most likely anemia of chronic disease. Patient is afebrile report some improvement in his shortness of breath although continues to be short of breath. Patient extremely weak and does have history of chronic back pain and was scheduled to have outpatient procedure. Patient with significant upper and lower extremity edema pitting with minimal improvement. 02/28/2023 Patient remains in intensive care unit and continues on hemodialysis currently undergoing this AM at bedside. Noted that he has chronic low back at baseline and he mostly transfers with a walker at baseline he was scheduled for a lumbar injection outpatient at [facility] but was not cleared by cardiology to go off his medications. PT/OT will be consulted. He has adequte urine output. He remains no lasix gtt. He has been weaned off vasopressors and blood pressure is stable. Patient received albumin. Chest xray from this AM has not been resulted yet. Sodium is 136, potassium 4.2, BUN 30, creatinine 1.87 which is stable. 03/01/2023 Patient has been moved out of the intensive care unit and is currently evaluated on the medical floor. He does have a sacral stage II pressure injury and this is causing him some discomfort. He is being repositioned and would recommend doing this every 2-3 hours. He is on a Lasix drip at 10 mL's per hour he has a urine output of 4.9 L in the last 24 hours. He continues with significant peripheral edema he has +2 pitting up to his thighs and scrotum as well as his upper extremities. His creatinine is increased up to 2.24 today. Vitamin D level found to be low at 10.4 and patient is started on oral supplementation. 03/02/2023 Patient is seen and evaluated in follow-up today awaiting to receive dialysis today. Patient being followed by nephrology and will discuss further about outpatient dialysis as patient continues with temporary catheter. Patient remains on Lasix drip and diuresis and well and continues with significant overload. Patient with bullous pemphigus and was evaluated by wound care recommending wound care as patient also has decubitus ulcers. Will consult infectious disease and appreciate input and recommendations regarding concerns for possible underlying infection of the left forearm. Will add some IV steroids as well and monitor and recommend Accu-Cheks before meals and at bedtime and will use sliding scale as needed. Patient is currently afebrile with no reports of worsening shortness of breath or chest pains. Patient is currently maintaining good oxygen saturations above 95% on 4-6 L via nasal cannula. 03/03/2023 Patient is seen and evaluated today with multiple consultations following. Hematology/Oncology consulted and has ordered 24-hour urine along with additional testing which is pending. Patient is maintained on Lasix 80 mg IV push twice daily and metolazone being ordered. Patient continues with significant volume overload with no plans of dialysis today. Patient continues with temporary dialysis catheter and will need to discuss further with nephrology if patient will require permanent dialysis catheter and outpatient hemodialysis to be arranged. Patient with some weakness and recommend physical therapy evaluation daily. Patient also continued on local wound care of the buttocks area and has history of bullous pemphigus and infectious disease consulted. Patient started on low-dose IV steroids and will continue with Accu- Cheks before meals and at bedtime and monitor for some improvement. Hemoglobin is stable at 8.7 and platelets are 173. Sodium is 137 with a potassium of 5.2, BUN is 32 with a creatinine of 2.95, magnesium is 2.1. Patient is currently afebrile with no reports of chest pain or worsening shortness of breath. Patient is diuresing and currently maintained on 5 L via nasal cannula with an oxygen saturation of 98%. Recommend weaning FiO2 as tolerated as patient does not normally wear oxygen outpatient. 03/04/2023 Patient is seen and evaluated in follow-up today currently awaiting labs which are pending at this time. Per nursing staff no further reports of blood noted in the urine and will resume anticoagulant. Nephrology following awaiting follow-up labs and awaiting to see if hemodialysis is to be done today. Patient reports to feeling better currently maintained on 5 L and denies worsening shortness of breath. Patient is also continued on IV steroids and bullous pemp higus lesions appear to be somewhat improved. We'll continue for another day along with sliding scale and Accu-Cheks and titrate down on the dose of steroids. Continue with local wound care. Patient also being followed by physical therapy and possible discussion of ECF with case management following. Urology has been consulted for the hematuria although hematuria has resolved and will continue with indwelling Barkley catheter for intake and output monitoring and monitor for any further bleeding. 03/05/2023 Patient is seen and evaluated this morning maintained on 5-6 L of oxygen via nasal cannula with oxygen saturations above 90%. Multiple medical consultations including vascular surgery consulted again as patient will be requiring permanent catheter placement for hemodialysis outpatient. Patient to receive ultrafiltration today as well as tomorrow. Plan is for permacath placement tomorrow and will hold anticoagulation for now. Hemoglobin is stable at 7.7, sodium is 131 with a potassium of 4.6, BUN is 33 and creatinine is 3.16. Blood sugars remain elevated at times and will continue current regimen. Patient is receiving IV steroids and will discontinue tomorrow. Transition to oral steroid taper. Patient is afebrile with no reports of chest pain or worsening shortness of breath. Patient tolerating diet and will be nothing by mouth at midnight for dialysis catheter placement. Hematology/oncology following as well awaiting labs that were sent out. Per case management plan is for home with home care and arranging for outpatient dialysis. Recommend physical therapy daily. 03/06/2023 Patient is seen and evaluated in follow-up this morning currently scheduled to undergo dialysis catheter placement with Dr. Cano today. Anticoagulation currently on hold and will resume post. Patient maintained on IV steroids for pemphigus showing some improvement and will titrate and start oral steroids 20 mg daily for the next 2 days and then 10 mg daily for 2 days then discontinue. Recommend continue monitoring Accu-Cheks and continue sliding scale. Patient is currently afebrile reports improvements in shortness of breath although continues to be extremely dyspneic with minimal exertion. Patient is continued on 6-7 L nasal cannula high flow. Patient was not wearing oxygen prior to admission. Patient will need oxygen on discharge to manage CHF. Working t owards at least 4-5 L nasal cannula with tolerance. Patient is extremely weak with physical therapy evaluating and plans are for home with home care. Case management following and arranging for outpatient dialysis. Review of systems: Constitutional: no reports of fatigue, no fever, or chills Cardiovascular: No reports of chest pain or palpitations Respiratory: reports some improvement in shortness of breath GI: No reports of nausea, vomiting, or diarrhea : No reports of dysuria or retention Neurovascular: reports of generalized weakness All medications have been reviewed PHYSICAL EXAMINATION: GENERAL: The patient is awake, alert and oriented x2-3. Ill-appearing, elderly appearing, morbidly Obese, anasarca HEENT: Pupils are round and equally reacting to light. EOMI. No scleral icterus. No conjunctival pallor. Normocephalic, atraumatic. No pharyngeal erythema. No thyromegaly. CARDIOVASCULAR: S1 and S2 muffled PULMONARY: Diminished breath sounds bilaterally with some coarse rhonchi noted, faint crackles at the bases noted ABDOMEN: Soft, nontender, nondistended, normoactive bowel sounds. No palpable organomegaly. MUSCULOSKELETAL: No joint swelling or deformity. EXTREMITIES: No cyanosis, clubbing, anasarca, pitting pedal edema as mentioned above edema of the abdominal wall. Some improvement in edema of upper and lower extremities NEUROLOGICAL: Gross neurological examination did not reveal any focal deficits. SKIN: Stage II pressure ulcers, pale Assessment: -Acute on chronic diastolic heart failure -Cardiogenic shock off pressor support and out of the ICU -Acute hypoxic respiratory failure: Secondary to heart failure exacerbation. -Atrial fibrillation, paroxysmal patient is rate controlled at this time -Hematuria, most likely related to trauma from indwelling Barkley catheter, improving -Acute kidney injury with acute tubular necrosis secondary to hypotension and cardiorenal syndrome, improving requiring emergent dialysis -Chronic kidney disease probably secondary to nephrosclerosis being arranged for outpatient dialysis -Hyperkalemia secondary to acute renal failure, requiring dialysis, improving -Macrocytic anemia -Pressures ulcers stage II bilateral buttocks, present on admission -Morbid obesity with a BMI of 40.9, -possible sleep apnea, will need outpatient sleep study -hyperlipidemia history -Benign prostatic hypertrophy, patient is on tamsulosin which is being held temporally at this time because of shock but need to be resumed once his blood pressure improves as soon as possible -Bullous pemphigus has a wound in the left lower extremity, continue local wound care -Vitamin D deficiency -Chronic low back pain -GI prophylaxis -DVT prophylaxis: On anticoagulation as mentioned above -Full code Plan: Patient continues to be on Demadex with nephrology following and plan is to continue dialysis for ultrafiltration. Vascular surgery plans for permanent catheter placement today and anticoagulation is on hold Patient to be followed by PT/OT therapy daily as patient reports plans on going home with although patient is significantly weak would likely benefit from ECF. Patient continues to report he would like to go home. feels she is able to take care of him at home. Case management following arranging for outpatient dialysis. Continue with renal diet and strict intake and output. Wean FiO2 as tolerated currently maintained on 5-6 L. Patient does not wear oxygen outpatient. Patient will require oxygen on discharge in attempting to reach at least 4 L via nasal cannula to manage CHF. Hematology/Oncology following per nephrology with abnormal lab values and pending at this time and undergoing further workup, 24-hour urine pending Follow-up labs ordered for a.m. Recommend turning the patient every 2-3 hours and frequent offloading of the sacral area with continued wound care Patient was started on low-dose IV steroids for bullous pemphigus and will continue with Accu-Cheks before meals and at bedtime and sliding scale. Patient showing some improvement and will titrate the dose to oral steroid starting at 20 mg daily for 2 days and then titrate down to 10 mg daily for 2 days then discontinue. Due to multiple complex medical issues, prognosis is extremely guarded The impression and plan of care has been dictated by Sandra Ayala, Nurse Practitioner as directed. Dr. Jj MD I have performed a history and examination and MDM of this patient, discussed the same with the dictator, and agree with the dictator's assessment and plan as written ,documented as a scribe. Based on total visit time, I have performed more than 50% of the visit. Objective - Vital Signs Vital signs: Vital Signs Temp 98.1 F 03/06/23 13:38 Pulse 114 H 03/06/23 13:38 Resp 18 03/06/23 13:38 BP 159/72 03/06/23 13:38 Pulse Ox 94 L 03/06/23 13:38 FiO2 100 02/27/23 08:19 Intake & Output 03/05/23 03/06/23 03/06/23 18:59 06:59 18:59 Intake Total 400 240 25 Output Total 3350 625 500 Balance -2950 -385 -475 Weight 119.5 kg Intake: IV 25 Oral 240 Hemodialysis 400 Output: Urine 950 625 500 Uretheral (Barkley) 650 Hemodialysis 2400 Other: Voiding Method Indwelling Catheter Indwelling Catheter Indwelling Catheter ABP, PAP, CO, CI - Last Documented Arterial Blood Pressure 132/44 - Labs CBC & Chem 7: 03/05/23 06:47 03/05/23 06:47 Labs: Abnormal Lab Results - Last 24 Hours (Table) 03/05/23 03/05/23 03/06/23 Range/Units 16:01 20:44 06:10 POC Glucose (mg/dL) 212 H 220 H 193 H (70-110) mg/dL 03/06/23 Range/Units 11:18 POC Glucose (mg/dL) 159 H (70-110) mg/dL
[2023-03-06] MEDS: ATORVASTATIN 40 MG TAB PO SCH (15:30)
[2023-03-06] MEDS: TORSEMIDE 20 MG TAB PO SCH (15:31)
[2023-03-06] MEDS: ASPIRIN 81 MG PO SCH (15:31)
[2023-03-06] MEDS: CHOLECALCIFEROL 25 MCG (1000 IU) TABLET PO SCH (15:31)
[2023-03-06] MEDS: HYDROPHILIC CREAM 180 GM TUBE TOPICAL SCH (15:32)
[2023-03-06 16:08] LABS: Glucose,Whole Blood 182 mg/dL (70-110)
--- NOTE | 2023-03-06 16:10 | XR ---
EXAMINATION TYPE: XR chest 1V portable DATE OF EXAM: 03/06/2023 HISTORY: Shortness of breath. COMPARISON: 03/06/2023 TECHNIQUE: Single view of the chest is submitted. FINDINGS: Demonstrated are scattered senescent parenchymal change. Patchy basilar infiltrates may reflect pneumonia, atelectasis and/or pleural effusion. There is pulmo nary venous congestion noted. Large bore central venous line with its distal tip overlying the SVC. N o evidence of pneumothorax. The heart is stable. Hilar and mediastinal structures are within normal limits. Degenerative changes are seen of the dorsal spine. IMPRESSION: 1. Patchy basilar infiltrates may reflect pneumonia, atelectasis and/or pleural effusion. There is p ulmonary venous congestion noted. Large bore central venous line with its distal tip overlying the SV C. No evidence of pneumothorax.
[2023-03-06 20:35] LABS: Glucose,Whole Blood 197 mg/dL (70-110)
[2023-03-07] MEDS: HYDROcodone/APAP 5-325MG 1 EACH TAB PO PRN ×4 (01:50→22:36)
[2023-03-07 05:46] LABS: Glucose,Whole Blood 111 mg/dL (70-110)
[2023-03-07] MEDS: INSULIN ASPART (NovoLOG) 100 UNIT/ML VIAL SQ SCH ×4 (05:59→21:22)
[2023-03-07] MEDS: MIDODRINE 5 MG TAB PO SCH ×3 (06:00→17:40)
--- NOTE | 2023-03-07 09:33 | P.PN ---
Subjective Progress Note Date: 03/07/23 I am seeing this patient in new consultation today 02/25/2023 for suspected acute exacerbation of diastolic congestive heart failure. Patient is a 67-year-old white male with past medical history significant for atrial fibrillation, hyperlipidemia, hypertension, diabetes mellitus type 2, DVT, BPH, bullous pemphigoid and chronic back pain. Patient reportedly went to his director surgical for a scheduled stress test yesterday, and was directed to the emergency room. He has been having shortness of breath that has progressively worsened over the last couple weeks. It is especially worse on exertion, and states he can only walk approximately 5 feet. He sleeps in a recliner at home. He's had progressively worsening generalized swelling. Denies any chest pain, heart palpitations, syncope. Chest x-ray on arrival showed cardiomegaly with pulmonary vascular congestion and bilateral pleural effusions. Patient is currently sitting up in bed, on 4 L/m nasal cannula, and is fairly comfortable. He does have gross anasarca. He is pale. Blood pressure is borderline. He has been started on midodrine, and may have to be transferred to the intensive care unit for norepinephrine infusion. Last blood pressure was 90/50. ECG shows atrial fibrillation with controlled ventricular rate. Currently receiving Lasix 40 mg 3 times a day. Barkley catheter has been inserted for accurate intake and output. Patient does have a component of acute kidney injury. He was hyperkalemic, with a potassium of 6.5 on arrival, and was given 10 units of regular insulin, 1 amp D50 W, 1 amp sodium bicarb, and Lokelma. Potassium level did come down to 5.8. BMP on arrival shows sodium 138, potassium down to 5.8, chloride of 112, serum bicarbonate 24, BUN 62, creatinine 2.17, glucose 84. CBC on arrival shows a WBC count of 5.7, hemoglobin 9.5, hematocrit 30.1, platelets 230. He is anemic, and his Xarelto dose was reportedly increased for A. fib prophylaxis back in September 2022. He was found to have new onset A. fib. He denies any bloody bowel movements or melena. Echocardiogram done at that time showed a normal ejection fraction of 55-60% without any valvular abnormality. NT proBNP was elevated at 5360. As stated above, patient has been hypotensive, and may require transfer to the intensive care unit on Levophed if no improvement with midodrine. On today's evaluation of of 02/26/2023, the patient is being seen in follow-up in the intensive care unit. He had a very complicated course yesterday. Note that he continued to have issues with hyperkalemia that was unresponsive to medical treatment. The patient also continued to have difficulties and hypotension, massive fluid overload and low urine output. He was not responding adequately to the diuretics. He was on high-dose pressors and his norepinephrine at a certain stage was running as high as 0.45 mcg/kg/m. As such, it was decided to proceed with hemodialysis. His control his potassium. No ultrafiltration was done. Dialysis was completed a potassium level improved and it dropped down to 4.9 and this morning is up to 5.1. Noted the patient was having episodes of sinus bradycardia yesterday due to his hyperkalemia. His cur rent cardiac rhythm is sinus. Rate is 65. His norepinephrine has been weaned down to 0.14 mcg/kg/m. He remains on a Lasix drip and is producing somewhere between 40-50 mL of urine output. He continues to have massive fluid overload and fluid weeping from the skin surface of his lower extremities. BUN is 44 with a creatinine of 1.9 and a sodium level is at 139 and a potassium level of 5.1. The patient was at 8.4 with a hemoglobin of 8.7. His ultrasound of the abdomen and the kidneys were done. The patient had no major abnormalities. His common bile duct measured 9 mm in size. No evidence of any hydronephrosis. His echocardiogram was also repeated yesterday and the patient was found to have left ventricular ejection fraction of 55-60%. He had mild RV dilatation. Mild pulmonary hypertension. No significant valvular abnormalities. The patient had a repeat chest x-ray today that showed bilateral pleural effusions and significant volume overload. The patient is currently on 100% nonrebreather facemask. Is arousable and is communicating and the is at the bedside. He does have a dialysis catheter in his left femoral vein. He also has a triple- lumen cath in his left subclavian vein. On today's evaluation of 02/27/2023, the patient is alert and awake and communicating. There is no significant improvement in his neurologic status since yesterday. In same time, there is improvement in volume status. The patient underwent already 2 sessions of hemodialysis and yesterday he received some ultrafiltration. The patient remains on IV albumin 12.5 g, 25%, every 8 hours and the patient is also on Lasix 10 mg an hour. Urine output is in order of 100 mL an hour. The patient has a BUN of 37 with a creatinine of 1.8. Potassium levels down to 4.4. The white cell cause of 9.1 with a hemoglobin of 8.0. His cardiac rhythm is still in nature fibrillation. His oxygenation is stable and the patient is currently on nasal cannula at 15 L. No major signs of any respiratory distress at this point. Hemoglobin is at 8.0. At the same time, the patient is on low-dose pressors and the patient is weaned off and his norepinephrine. norepinephrine is running at 0.08 mcg/kg/m. he remains on anticoagulation and he is on Xarelto . 02/28/2023, the patient is doing extremely well. He is on 4 L of oxygen by nasal cannula. He remains on Lasix drip at 10 mg an hour. Urine output is adequate. There is improvement in the edema as the patient is undergoing daily sessions of hemodialysis. He has already undergone 3 sessions of hemodialysis the last being yesterday. He is currently on 4 L O2. His off pressors. The patient's creatinine is down to 1.8 with a BUN of 30. Sodium level is at 136. White cell count of 8.0 with a hemoglobin of 7.7. Repeat chest x-ray was done this morning and shows moderate-sized bilateral pleural effusion and as such the patient continues to have some excess volume his chest. Nephrology is on the case. Pressors are off. Cardiac rhythm is atrial fibrillation. Remains on anticoagulation. 03/01/2023, patient was transferred also the ICU yesterday and the patient is currently being seen on a medical floor. He is doing well. No specific complaints. No chest pain. He continues to be on a Lasix drip at 10 mg an hour. His left is no hemodialysis was done yesterday. He is on no pressors for now. His edema is also improving although he does have some residual edema lower extremity bilaterally. He is on no pressors. Is on anticoagulation. No altered mentation. No chest pain. No other new complaints otherwise for now. The patient is seen today 03/02/2023 in follow-up on the regular medical floor. He is currently sitting up in bed. Awake and alert in no acute distress. He is maintaining O2 saturations in the 90s on 4 L/m per nasal cannula. He is continued on a Lasix drip at 10 mg per hour. The plan is for hemodialysis today. Urine output currently at 1300 ML's in the past 24 hours. Sodium 140. Potassium 5.1. Bicarb 31. BUN 32. Creatinine 2.54. Glucose 109. He is continued on midodrine. Pressure stable. The patient is seen today 03/03/2023 in follow-up on the regular medical floor. He is currently sitting up in bed. Awake and alert in no acute distress. Maintaining O2 saturations in the 90s on 5 L/m per nasal cannula. Continues on a Lasix drip at 10 mg per hour. Currently in a -2.1 L balance. White count 11.2. Hemoglobin 8.7. Platelets 173. Sodium 137. Potassium 5.2. Bicarb 28. BUN 32. Creatinine 2.95. Glucose 160. He is continued on Xarelto. The patient is seen today 03/04/2023 in follow-up on the regular medical floor. He is awake and alert in no acute distress. Breathing easier today compared to yesterday. He did undergo hemodialysis with another 3 L of fluid removed. He has less edema. Today's labs are pending. He is making urine. He remains on Solu-Medrol. Continued on Xarelto for anticoagulation. The patient is seen today 03/05/2023 in follow-up on the regular medical floor. He is currently resting comfortably in bed. Maintaining O2 saturations in the 90s on 5 L/m per nasal cannula. Currently receiving iron replacement. No worse tonya shortness of breath, cough or congestion. He did receive hemodialysis again yesterday with 3 L ultrafiltration. As for ultrafiltration again today per nephrology. Plan is for permacath placement and removal of the femoral catheter tomorrow. White count 9.9. Hemoglobin 7.7. Sodium 131. Potassium 4.6. Bicarb 27. BUN 33. Creatinine 3.16. The patient is seen today 03/06/2023 in follow-up on the regular medical floor. He is awake and alert in no acute distress. Feeling better today compared to yesterday. Requiring 6-7 liters high flow nasal cannula with O2 saturations in the mid to upper 90s. Follow-up chest x-ray shows similar findings with bilateral pleural effusions right greater than left. He is continuing to receive daily dialysis for ultrafiltration. Plan is for permacath placement today. Blood sugar 193. The patient is seen today 03/07/2023 in follow-up on the regular medical floor. He sitting up in bed. Awake and alert in no acute distress. He continues to maintain good O2 saturations in the mid to upper 90s on 6 L high flow nasal cannula. He did undergo a right jugular dialysis catheter placement. Left femoral temporary catheter was removed. His urine output has picked up with 750 ML's overnight. He did receive ultrafiltration. He is currently in a -2 L balance. Chest x-ray continues to show patchy basilar infiltrates right greater than left. Blood sugar 111. Objective - Vital Signs Vital signs: Vital Signs Temp 98.1 F 03/07/23 06:45 Pulse 88 03/07/23 06:45 Resp 18 03/07/23 06:45 BP 125/92 03/07/23 06:45 Pulse Ox 96 03/07/23 08:23 FiO2 100 02/27/23 08:19 Intake & Output 03/06/23 03/07/23 03/07/23 18:59 06:59 18:59 Intake Total 275 640 Output Total 900 0 Balance -625 -1410 Weight 123.5 kg Intake: IV 25 Oral 250 340 Hemodialysis 300 Output: Urine 900 750 Uretheral (Barkley) 750 Hemodialysis 1300 Other: Voiding Method Indwelling Catheter Indwelling Catheter ABP, PAP, CO, CI - Last Documented Arterial Blood Pressure 132/44 - Exam GENERAL EXAM: Alert, 67-year-old male, comfortable in no apparent distress. On 6 L of oxygen by nasal cannula. HEAD: Normocephalic and atraumatic EYES: Normal reaction of pupils, equal size. NOSE: Clear with pink turbinates. THROAT: No erythema or exudates. NECK: No masses, no JVD. Right IJ permacath in place CHEST: No chest wall deformity. LUNGS: Equal air entry with bibasilar inspiratory crackles. Right greater than left. CVS: S1 and S2 normal with no audible murmur, irregular rhythm. No extra heart sounds ABDOMEN: Obese abdomen, no hepatosplenomegaly, active bowel sounds, no guarding or rigidity. SPINE: No scoliosis or deformity SKIN: No rashes. Bilateral buttocks stage II pressure injuries. Do not appear infected. There is generalized ecchymosis. CENTRAL NERVOUS SYSTEM: No focal deficits, tone is normal in all 4 extremities. EXTREMITIES: There is peripheral edema pitting edema of bilateral upper and lower extremities, +1. No clubbing, or cyanosis. Peripheral pulses are intact. - Labs CBC & Chem 7: 03/05/23 06:47 03/05/23 06:47 Labs: Abnormal Lab Results - Last 24 Hours (Table) 03/06/23 03/06/23 03/06/23 Range/Units 11:18 16:06 20:33 POC Glucose (mg/dL) 159 H 182 H 197 H (70-110) mg/dL 03/07/23 Range/Units 05:45 POC Glucose (mg/dL) 111 H (70-110) mg/dL Assessment and Plan Assessment: Acute hypoxemic respiratory failure secondary to exacerbation of diastolic congestive heart failure. Chest x-ray on arrival shows cardiomegaly with pulmonary vascular congestion and small bilateral pleural effusions. NT proBNP was elevated at 5360. Recent echocardiogram back in September, shows left ventricular hypertrophy, with a preserved left ventricular ejection fraction of 55-60%, and no valvular abnormalities reported. Chest x-ray continues to show bilateral pleural effusions right greater than left and currently is on 7 L of o xygen by nasal cannula. Remains on daily hemodialysis/ultrafiltration and the patient remains on Demadex. Right IJ permacath placed. Bilateral pleural effusions, repeat chest x-ray shows small to moderate-sized pleural effusion bilaterally right greater than left. Encephalopathy, recovered Hypotension, recovered Bullous pemphigus Atrial fibrillation with controlled ventricular rate, anticoagulated on Xarelto, rate is controlled for now Acute kidney injury, possibly cardiorenal versus ATN. Creatinine today is at 2.5, no hydronephrosis, the patient is undergoing hemodialysis with ult rafiltration and the patient is also on Lasix drip at 10 mg an hour Hyperkalemia, improved with hemodialysis. The patient also received medical management for hyperkalemia and his potassium level was refractory and as such required dialysis. The patient has multiple sessions of hemodialysis in the potassium level is normalized. Anemia, no reported acute blood loss. Mildly macrocytic Hypoalbuminemia and gross anasarca Pressure injuries, stage II, on bilateral buttocks Hyperlipidemia BPH Obesity, with a BMI of 40 kg/m Plan: The patient was seen and evaluated Medications reviewed Chest x-ray reviewed No plans for thoracentesis at this time Titrate the FiO2 as tolerated Hemodialysis per nephrology Plan is for Thursday schedule We'll continue to follow I have personally seen and examined the patient, performed the documentation and the assessment and plan as written. Number of minutes spent on the visit: 10.
[2023-03-07 11:20] LABS: Glucose,Whole Blood 150 mg/dL (70-110)
[2023-03-07] MEDS: RIVAROXABAN 20 MG TAB PO SCH (13:26)
[2023-03-07] MEDS: CHOLECALCIFEROL 25 MCG (1000 IU) TABLET PO SCH (13:26)
[2023-03-07] MEDS: predniSONE 20 MG TAB PO SCH (13:27)
[2023-03-07] MEDS: ATORVASTATIN 40 MG TAB PO SCH (13:27)
[2023-03-07] MEDS: ASPIRIN 81 MG PO SCH (13:27)
[2023-03-07] MEDS: TORSEMIDE 20 MG TAB PO SCH (13:27)
[2023-03-07] MEDS: PANTOPRAZOLE 40 MG/10 ML VIAL IVP SCH (13:28)
[2023-03-07] MEDS: HYDROPHILIC CREAM 180 GM TUBE TOPICAL SCH (13:29)
--- NOTE | 2023-03-07 13:47 | P.PN ---
Subjective Patient is seen for follow-up for acute kidney injury and hyperkalemia. Patient is currently maintained on hemodialysis. Urine output has improved but he remains significantly volume overloaded. Currently seen on hemodialysis. Tolerating treatment well. Goal UF about 3.3 L. Objective - Vital Signs Vital signs: Vital Signs Temp 98.1 F 03/07/23 06:45 Pulse 88 03/07/23 06:45 Resp 18 03/07/23 08:00 BP 125/92 03/07/23 06:45 Pulse Ox 96 03/07/23 08:23 FiO2 100 02/27/23 08:19 Intake & Output 03/06/23 03/07/23 03/07/23 18:59 06:59 18:59 Intake Total 275 640 Output Total 900 2049 Balance -625 -1410 Weight 123.5 kg Intake: IV 25 Oral 250 340 Hemodialysis 300 Output: Urine 900 750 Uretheral (Barkley) 750 Hemodialysis 1300 Other: Voiding Method Indwelling Catheter Indwelling Catheter Indwelling Catheter ABP, PAP, CO, CI - Last Documented Arterial Blood Pressure 132/44 - Exam Patient is awake, comfortable, no acute distress, mentation has improved Examination of the heart S1 and S2 Examination lungs decreased breath sounds at the bases basal crackles are heard. Abdomen is soft distended obese nontender Examination lower extremity shows edema 2+ bilaterally with chronic skin changes [employer]ING [employer] exam grossly intact - Labs CBC & Chem 7: 03/05/23 06:47 03/05/23 06:47 Labs: Abnormal Lab Results - Last 24 Hours (Table) 03/06/23 03/06/23 03/07/23 Range/Units 16:06 20:33 05:45 POC Glucose (mg/dL) 182 H 197 H 111 H (70-110) mg/dL 03/07/23 Range/Units 11:18 POC Glucose (mg/dL) 150 H (70-110) mg/dL Assessment and Plan Assessment: 1. Acute kidney injury, non-oliguric ATN secondary to hypotension. Started on hemodialysis on 02/25/2023. UA shows 3+ protein and large blood. Urine output has improved but patient remains on dialysis due to significant volume overload. 2. Acute hyperkalemia associated with acute kidney injury and use of LATONIA inhibitor's in the setting of hypotension. Resolved 3. Volume overload, maintained on Demadex and receiving hemodialysis. 4. Acute diastolic CHF. Ejection fraction was 55-60% on echocardiogram in September 2022. 5. Hypotension on initial admission currently improved 6. Chronic A. fib with controlled ventricular response maintained on xarelto 7. Acute hypoxic respiratory failure secondary to CHF and volume overload. Improved 8. 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 Left kidney nodule, to be monitored as outpatient Plan: Continue with torsemide Repeat hemodialysis on 03/09/2023
[2023-03-07 16:33] LABS: Glucose,Whole Blood 229 mg/dL (70-110)
[2023-03-07 20:41] LABS: Glucose,Whole Blood 230 mg/dL (70-110)
--- NOTE | 2023-03-07 22:29 | PN ---
PROGRESS NOTE DATE OF SERVICE: 03/07/2023 SUBJECTIVE: This is a 67-year-old gentleman, who was admitted with acute on chronic CHF, also had cardiogenic shock. The patient is also started on small dose of steroids. The patient is also receiving hemodialysis. No chest pain. No palpitations. No fever. OBJECTIVE: VITAL SIGNS: Pulse is 88, blood pressure 125/92, respirations 18. CHEST: A few scattered rhonchi. ABDOMEN: Soft. NERVOUS SYSTEM: Nonfocal. LABORATORY DATA: Reviewed. ASSESSMENT: 1. Acute on chronic diastolic congestive heart failure. 2. Cardiogenic shock, status post pressor support. rt pleural effusion 3. Acute hypoxic respiratory failure secondary to congestive heart failure acute exacerbation. 4. Acute kidney injury with acute tubular necrosis secondary to hypotension, cardiorenal syndrome requiring emergent hemodialysis. 5. Atrial fibrillation, paroxysmal. 6. Hematuria. 7. Multiple complex medical issues. RECOMMENDATIONS: Recommend to continue current management and continue symptomatic treatment. Otherwise, at this time, I will recommend repeat labs. Closely follow with Nephrology. Continue the hemodialysis. Monitor fluid balance closely. Prognosis guarded. Further recommendations to follow. MMODL / IJN: [id number] / MANJIT
[2023-03-08] MEDS: HYDROcodone/APAP 5-325MG 1 EACH TAB PO PRN ×4 (04:28→23:20)
[2023-03-08 05:53] LABS: Glucose,Whole Blood 144 mg/dL (70-110)
[2023-03-08] MEDS: INSULIN ASPART (NovoLOG) 100 UNIT/ML VIAL SQ SCH ×4 (06:39→21:02)
[2023-03-08] MEDS: MIDODRINE 5 MG TAB PO SCH ×3 (06:39→17:15)
[2023-03-08 08:40] LABS: Basophils % (A) 0 %; Eosinophils # (A) 0.2 k/uL (0-0.7); Eosinophils % (A) 2 %; HGB 9.1 gm/dL (13.0-17.5); Hypochromasia Marked; Lymphocytes # (A) 1.8 k/uL (1.0-4.8); Lymphocytes % (A) 17 %; MCH 31.5 pg (25.0-35.0); MCHC 31.4 g/dL (31.0-37.0); MCV 100.4 fL (80.0-100.0); Macrocytosis Slight; Mean Platelet Volume 7.3; Monocytes # (A) 0.7 k/uL (0-1.0); Monocytes % (A) 7 %; Neutrophils # (A) 7.5 k/uL (1.3-7.7); Neutrophils % (A) 72 %; Platelet Count 302 k/uL (150-450); RBC 2.89 m/uL (4.30-5.90); RDW 15.7 % (11.5-15.5); WBC 10.4 k/uL (3.8-10.6)
[2023-03-08 08:58] LABS: African American GFR (CKD) 27 (>60 ml/min/1.73 sqM); Anion Gap 3 mmol/L; Blood Urea Nitrogen 34 mg/dL (9-20); Calcium 7.1 mg/dL (8.4-10.2); Carbon Dioxide 31 mmol/L (22-30); Chloride 99 mmol/L (98-107); Glucose 124 mg/dL (74-99); Non-African American GFR(CKD) 23 (>60 ml/min/1.73 sqM); Potassium 3.9 mmol/L (3.5-5.1); Sodium 133 mmol/L (137-145)
[2023-03-08] MEDS: PANTOPRAZOLE 40 MG/10 ML VIAL IVP SCH (09:44)
[2023-03-08] MEDS: RIVAROXABAN 20 MG TAB PO SCH (10:25)
[2023-03-08] MEDS: ERGOCALCIFEROL 1,250 MCG (50,000 IU) CAPSULE PO SCH (10:25)
[2023-03-08] MEDS: predniSONE 20 MG TAB PO SCH (10:25)
[2023-03-08] MEDS: ATORVASTATIN 40 MG TAB PO SCH (10:25)
[2023-03-08] MEDS: ASPIRIN 81 MG PO SCH (10:25)
[2023-03-08] MEDS: TORSEMIDE 20 MG TAB PO SCH (10:25)
[2023-03-08] MEDS: CHOLECALCIFEROL 25 MCG (1000 IU) TABLET PO SCH (10:25)
[2023-03-08] MEDS: HYDROPHILIC CREAM 180 GM TUBE TOPICAL SCH (10:26)
[2023-03-08 11:10] LABS: Glucose,Whole Blood 206 mg/dL (70-110)
--- NOTE | 2023-03-08 11:33 | P.PN ---
Subjective Progress Note Date: 03/08/23 I am seeing this patient in new consultation today 02/25/2023 for suspected acute exacerbation of diastolic congestive heart failure. Patient is a 67-year-old white male with past medical history significant for atrial fibrillation, hyperlipidemia, hypertension, diabetes mellitus type 2, DVT, BPH, bullous pemphigoid and chronic back pain. 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 He has been having shortness of breath that has progressively worsened over the last couple weeks. It is especially worse on exertion, and states he can only walk approximately 5 feet. He sleeps in a recliner at home. He's had progressively worsening generalized swelling. Denies any chest pain, heart palpitations, syncope. Chest x-ray on arrival showed cardiomegaly with pulmonary vascular congestion and bilateral pleural effusions. Patient is currently sitting up in bed, on 4 L/m nasal cannula, and is fairly comfortable. He does have gross anasarca. He is pale. Blood pressure is borderline. He has been started on midodrine, and may have to be transferred to the intensive care unit for norepinephrine infusion. Last blood pressure was 90/50. ECG shows atrial fibrillation with controlled ventricular rate. Currently receiving Lasix 40 mg 3 times a day. Barkley catheter has been inserted for accurate intake and output. Patient does have a component of acute kidney injury. He was hyperkalemic, with a potassium of 6.5 on arrival, and was given 10 units of regular insulin, 1 amp D50 W, 1 amp sodium bicarb, and Lokelma. Potassium level did come down to 5.8. BMP on arrival shows sodium 138, potassium down to 5.8, chloride of 112, serum bicarbonate 24, BUN 62, creatinine 2.17, glucose 84. CBC on arrival shows a WBC count of 5.7, hemoglobin 9.5, hematocrit 30.1, platelets 230. He is anemic, and his Xarelto dose was reportedly increased for A. fib prophylaxis back in September 2022. He was found to have new onset A. fib. He denies any bloody bowel movements or melena. Echocardiogram done at that time showed a normal ejection fraction of 55-60% without any valvular abnormality. NT proBNP was elevated at 5360. As stated above, patient has been hypotensive, and may require transfer to the intensive care unit on Levophed if no improvement with midodrine. On today's evaluation of of 02/26/2023, the patient is being seen in follow-up in the intensive care unit. He had a very complicated course yesterday. Note that he continued to have issues with hyperkalemia that was unresponsive to medical treatment. The patient also continued to have difficulties and hypotension, massive fluid overload and low urine output. He was not responding adequately to the diuretics. He was on high-dose pressors and his norepinephrine at a certain stage was running as high as 0.45 mcg/kg/m. As such, it was decided to proceed with hemodialysis. His control his potassium. No ultrafiltration was done. Dialysis was completed a potassium level improved and it dropped down to 4.9 and this morning is up to 5.1. Noted the patient was having episodes of sinus bradycardia yesterday due to his hyperkalemia. His cur rent cardiac rhythm is sinus. Rate is 65. His norepinephrine has been weaned down to 0.14 mcg/kg/m. He remains on a Lasix drip and is producing somewhere between 40-50 mL of urine output. He continues to have massive fluid overload and fluid weeping from the skin surface of his lower extremities. BUN is 44 with a creatinine of 1.9 and a sodium level is at 139 and a potassium level of 5.1. The patient was at 8.4 with a hemoglobin of 8.7. His ultrasound of the abdomen and the kidneys were done. The patient had no major abnormalities. His common bile duct measured 9 mm in size. No evidence of any hydronephrosis. His echocardiogram was also repeated yesterday and the patient was found to have left ventricular ejection fraction of 55-60%. He had mild RV dilatation. Mild pulmonary hypertension. No significant valvular abnormalities. The patient had a repeat chest x-ray today that showed bilateral pleural effusions and significant volume overload. The patient is currently on 100% nonrebreather facemask. Is arousable and is communicating and the is at the bedside. He does have a dialysis catheter in his left femoral vein. He also has a triple- lumen cath in his left subclavian vein. On today's evaluation of 02/27/2023, the patient is alert and awake and communicating. There is no significant improvement in his neurologic status since yesterday. In same time, there is improvement in volume status. The patient underwent already 2 sessions of hemodialysis and yesterday he received some ultrafiltration. The patient remains on IV albumin 12.5 g, 25%, every 8 hours and the patient is also on Lasix 10 mg an hour. Urine output is in order of 100 mL an hour. The patient has a BUN of 37 with a creatinine of 1.8. Potassium levels down to 4.4. The white cell cause of 9.1 with a hemoglobin of 8.0. His cardiac rhythm is still in nature fibrillation. His oxygenation is stable and the patient is currently on nasal cannula at 15 L. No major signs of any respiratory distress at this point. Hemoglobin is at 8.0. At the same time, the patient is on low-dose pressors and the patient is weaned off and his norepinephrine. norepinephrine is running at 0.08 mcg/kg/m. he remains on anticoagulation and he is on Xarelto . 02/28/2023, the patient is doing extremely well. He is on 4 L of oxygen by nasal cannula. He remains on Lasix drip at 10 mg an hour. Urine output is adequate. There is improvement in the edema as the patient is undergoing daily sessions of hemodialysis. He has already undergone 3 sessions of hemodialysis the last being yesterday. He is currently on 4 L O2. His off pressors. The patient's creatinine is down to 1.8 with a BUN of 30. Sodium level is at 136. White cell count of 8.0 with a hemoglobin of 7.7. Repeat chest x-ray was done this morning and shows moderate-sized bilateral pleural effusion and as such the patient continues to have some excess volume his chest. Nephrology is on the case. Pressors are off. Cardiac rhythm is atrial fibrillation. Remains on anticoagulation. 03/01/2023, patient was transferred also the ICU yesterday and the patient is currently being seen on a medical floor. He is doing well. No specific complaints. No chest pain. He continues to be on a Lasix drip at 10 mg an hour. His left is no hemodialysis was done yesterday. He is on no pressors for now. His edema is also improving although he does have some residual edema lower extremity bilaterally. He is on no pressors. Is on anticoagulation. No altered mentation. No chest pain. No other new complaints otherwise for now. The patient is seen today 03/02/2023 in follow-up on the regular medical floor. He is currently sitting up in bed. Awake and alert in no acute distress. He is maintaining O2 saturations in the 90s on 4 L/m per nasal cannula. He is continued on a Lasix drip at 10 mg per hour. The plan is for hemodialysis today. Urine output currently at 1300 ML's in the past 24 hours. Sodium 140. Potassium 5.1. Bicarb 31. BUN 32. Creatinine 2.54. Glucose 109. He is continued on midodrine. Pressure stable. The patient is seen today 03/03/2023 in follow-up on the regular medical floor. He is currently sitting up in bed. Awake and alert in no acute distress. Maintaining O2 saturations in the 90s on 5 L/m per nasal cannula. Continues on a Lasix drip at 10 mg per hour. Currently in a -2.1 L balance. White count 11.2. Hemoglobin 8.7. Platelets 173. Sodium 137. Potassium 5.2. Bicarb 28. BUN 32. Creatinine 2.95. Glucose 160. He is continued on Xarelto. The patient is seen today 03/04/2023 in follow-up on the regular medical floor. He is awake and alert in no acute distress. Breathing easier today compared to yesterday. He did undergo hemodialysis with another 3 L of fluid removed. He has less edema. Today's labs are pending. He is making urine. He remains on Solu-Medrol. Continued on Xarelto for anticoagulation. The patient is seen today 03/05/2023 in follow-up on the regular medical floor. He is currently resting comfortably in bed. Maintaining O2 saturations in the 90s on 5 L/m per nasal cannula. Currently receiving iron replacement. No worse tonya shortness of breath, cough or congestion. He did receive hemodialysis again yesterday with 3 L ultrafiltration. As for ultrafiltration again today per nephrology. Plan is for permacath placement and removal of the femoral catheter tomorrow. White count 9.9. Hemoglobin 7.7. Sodium 131. Potassium 4.6. Bicarb 27. BUN 33. Creatinine 3.16. The patient is seen today 03/06/2023 in follow-up on the regular medical floor. He is awake and alert in no acute distress. Feeling better today compared to yesterday. Requiring 6-7 liters high flow nasal cannula with O2 saturations in the mid to upper 90s. Follow-up chest x-ray shows similar findings with bilateral pleural effusions right greater than left. He is continuing to receive daily dialysis for ultrafiltration. Plan is for permacath placement today. Blood sugar 193. The patient is seen today 03/07/2023 in follow-up on the regular medical floor. He sitting up in bed. Awake and alert in no acute distress. He continues to maintain good O2 saturations in the mid to upper 90s on 6 L high flow nasal cannula. He did undergo a right jugular dialysis catheter placement. Left femoral temporary catheter was removed. His urine output has picked up with 750 ML's overnight. He did receive ultrafiltration. He is currently in a -2 L balance. Chest x-ray continues to show patchy basilar infiltrates right greater than left. Blood sugar 111. The patient is seen today 03/08/2023 in follow-up on the regular medical floor. He is currently sitting up in a chair. Awake and alert in no acute distress. Breathing a bit easier today compared to yesterday. Maintaining good O2 saturations in the 90s on 4 L/m per nasal cannula. Afebrile. Hemodynamically stable. He did receive hemodialysis yesterday with 3.8 L removed. Currently in a -1.2 L balance. He is making good urine. White count 10.4. Hemoglobin 9.1. Platelets 302. 33. Potassium 3.9. Bicarb 31. BUN 34. Creatinine 2.70. Glucose 124. Objective - Vital Signs Vital signs: Vital Signs Temp 97.9 F 03/08/23 07:30 Pulse 64 03/08/23 07:30 Resp 18 03/08/23 07:30 BP 137/75 03/08/23 07:30 Pulse Ox 100 03/08/23 08:00 FiO2 100 02/27/23 08:19 Intake & Output 03/07/23 03/08/23 03/08/23 18:59 06:59 18:59 Intake Total 800 Output Total 4100 1200 Balance -3300 -1200 Weight 120.5 kg Intake: Hemodialysis 800 Output: Urine 300 1200 Hemodialysis 3800 Other: Voiding Method Indwelling Catheter Indwelling Catheter Indwelling Catheter # Bowel Movements 1 ABP, PAP, CO, CI - Last Documented Arterial Blood Pressure 132/44 - Exam GENERAL EXAM: Alert, pleasant 67-year-old male, sitting up in a chair. On 4 L of oxygen by nasal cannula. HEAD: Normocephalic and atraumatic EYES: Normal reaction of pupils, equal size. NOSE: Clear with pink turbinates. THROAT: No erythema or exudates. NECK: No masses, no JVD. Right IJ permacath in place CHEST: No chest wall deformity. LUNGS: Equal air entry with bibasilar inspiratory crackles. Right greater than left. CVS: S1 and S2 normal with no audible murmur, irregular rhythm. No extra heart sounds ABDOMEN: Obese abdomen, no hepatosplenomegaly, active bowel sounds, no guarding or rigidity. SPINE: No scoliosis or deformity SKIN: No rashes. Bilateral buttocks stage II pressure injuries. Do not appear infected. There is generalized ecchymosis. CENTRAL NERVOUS SYSTEM: No focal deficits, tone is normal in all 4 extremities. EXTREMITIES: There is peripheral edema pitting edema of bilateral upper and lower extremities, +1. No clubbing, or cyanosis. Peripheral pulses are intact. - Labs CBC & Chem 7: 03/08/23 08:07 03/08/23 08:07 Labs: Abnormal Lab Results - Last 24 Hours (Table) 03/07/23 03/07/23 03/08/23 Range/Units 16:31 20:40 05:51 RBC (4.30-5.90) m/uL Hgb (13.0-17.5) gm/dL Hct (39.0-53.0) % MCV (80.0-100.0) fL RDW (11.5-15.5) % Sodium (137-145) mmol/L Carbon Dioxide (22-30) mmol/L BUN (9-20) mg/dL Creatinine (0.66-1.25) mg/dL Glucose (74-99) mg/dL POC Glucose (mg/dL) 229 H 230 H 144 H (70-110) mg/dL Calcium (8.4-10.2) mg/dL 03/08/23 03/08/23 03/08/23 Range/Units 08:07 08:07 11:08 RBC 2.89 L (4.30-5.90) m/uL Hgb 9.1 L (13.0-17.5) gm/dL Hct 29.0 L (39.0-53.0) % MCV 100.4 H (80.0-100.0) fL RDW 15.7 H (11.5-15.5) % Sodium 133 L (137-145) mmol/L Carbon Dioxide 31 H (22-30) mmol/L BUN 34 H (9-20) mg/dL Creatinine 2.70 H (0.66-1.25) mg/dL Glucose 124 H (74-99) mg/dL POC Glucose (mg/dL) 206 H (70-110) mg/dL Calcium 7.1 L (8.4-10.2) mg/dL Assessment and Plan Assessment: Acute hypoxemic respiratory failure secondary to exacerbation of diastolic congestive heart failure. Chest x-ray on arrival shows cardiomegaly with pu lmonary vascular congestion and small bilateral pleural effusions. NT proBNP was elevated at 5360. Recent echocardiogram back in September, shows left ventricular hypertrophy, with a preserved left ventricular ejection fraction of 55-60%, and no valvular abnormalities reported. Chest x-ray continues to show bilateral pleural effusions right greater than left and currently is on 7 L of oxygen by nasal cannula. Remains on daily hemodialysis/ultrafiltration and the patient remains on Demadex. Right IJ permacath placed. Bilateral pleural effusions, repeat chest x-ray shows small to moderate-sized pleural effusion bilaterally right greater than left. Encephalopathy, recovered Hypotension, recovered Bullous pemphigus Atrial fibrillation with controlled ventricular rate, anticoagulated on Xarelto, rate is controlled for now Acute kidney injury, possibly cardiorenal versus ATN. Creatinine today is at 2.5, no hydronephrosis, the patient is undergoing hemodialysis with ultrafiltr ation and the patient is also on Lasix drip at 10 mg an hour Hyperkalemia, improved with hemodialysis. The patient also received medical management for hyperkalemia and his potassium level was refractory and as such required dialysis. The patient has multiple sessions of hemodialysis in the potassium level is normalized. Anemia, no reported acute blood loss. Mildly macrocytic Hypoalbuminemia and gross anasarca Pressure injuries, stage II, on bilateral buttocks Hyperlipidemia BPH Obesity, with a BMI of 40 kg/m Plan: The patient was seen and evaluated Medications and labs reviewed Titrate the FiO2 as tolerated Hemodialysis per nephrology Remains in a negative balance We'll continue to follow I have personally seen and examined the patient, performed the documentation and the assessment and plan as written. Number of minutes spent on the visit: 10.
--- NOTE | 2023-03-08 12:13 | P.PN ---
Subjective Patient is seen for follow-up for acute kidney injury and hyperkalemia. Patient is currently maintained on hemodialysis. Urine output has improved but he remains significantly volume overloaded. Tolerated dialysis well with UF of 3.8 L yesterday. Objective - Vital Signs Vital signs: Vital Signs Temp 97.9 F 03/08/23 07:30 Pulse 64 03/08/23 07:30 Resp 18 03/08/23 07:30 BP 137/75 03/08/23 07:30 Pulse Ox 100 03/08/23 08:00 FiO2 100 02/27/23 08:19 Intake & Output 03/07/23 03/08/23 03/08/23 18:59 06:59 18:59 Intake Total 800 Output Total 4100 1200 Balance -3300 -1200 Weight 120.5 kg Intake: Hemodialysis 800 Output: Urine 300 1200 Hemodialysis 3800 Other: Voiding Method Indwelling Catheter Indwelling Catheter Indwelling Catheter # Bowel Movements 1 ABP, PAP, CO, CI - Last Documented Arterial Blood Pressure 132/44 - Exam Patient is awake, comfortable, no acute distress, mentation has improved Examination of the heart S1 and S2 Examination lungs decreased breath sounds at the bases basal crackles are heard. Abdomen is soft distended obese nontender Examination lower extremity shows edema 2+ bilaterally with chronic skin changes PROGRAM EVALUATION CONSULTANT exam grossly intact - Labs CBC & Chem 7: 03/08/23 08:07 03/08/23 08:07 Labs: Abnormal Lab Results - Last 24 Hours (Table) 03/07/23 03/07/23 03/08/23 Range/Units 16:31 20:40 05:51 RBC (4.30-5.90) m/uL Hgb (13.0-17.5) gm/dL Hct (39.0-53.0) % MCV (80.0-100.0) fL RDW (11.5-15.5) % Sodium (137-145) mmol/L Carbon Dioxide (22-30) mmol/L BUN (9-20) mg/dL Creatinine (0.66-1.25) mg/dL Glucose (74-99) mg/dL POC Glucose (mg/dL) 229 H 230 H 144 H (70-110) mg/dL Calcium (8.4-10.2) mg/dL 08/13/23 08/13/23 08/13/23 Range/Units 08:07 08:07 11:08 RBC 2.89 L (4.30-5.90) m/uL Hgb 9.1 L (13.0-17.5) gm/dL Hct 29.0 L (39.0-53.0) % MCV 100.4 H (80.0-100.0) fL RDW 15.7 H (11.5-15.5) % Sodium 133 L (137-145) mmol/L Carbon Dioxide 31 H (22-30) mmol/L BUN 34 H (9-20) mg/dL Creatinine 2.70 H (0.66-1.25) mg/dL Glucose 124 H (74-99) mg/dL POC Glucose (mg/dL) 206 H (70-110) mg/dL Calcium 7.1 L (8.4-10.2) mg/dL Assessment and Plan Assessment: 1. Acute kidney injury, non-oliguric ATN secondary to hypotension. Started on hemodialysis on 02/25/2023. UA shows 3+ protein and large blood. Urine output has improved but patient remains on dialysis due to significant volume overload. 2. Acute hyperkalemia associated with acute kidney injury and use of LATONIA inhibitor's in the setting of hypotension. Resolved 3. Volume overload, maintained on Demadex and receiving hemodialysis. 4. Acute diastolic CHF. Ejection fraction was 55-60% on echocardiogram in September 2022. 5. Hypotension on initial admission currently improved 6. Chronic A. fib with controlled ventricular response maintained on xarelto 7. Acute hypoxic respiratory failure secondary to CHF and volume overload. Improved 8. 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 Left kidney nodule, to be monitored as outpatient Plan: Continue with torsemide Repeat hemodialysis on 03/09/2023
[2023-03-08] MEDS: THIAMINE 100 MG TAB PO SCH (12:49)
[2023-03-08 16:11] LABS: Glucose,Whole Blood 298 mg/dL (70-110)
--- NOTE | 2023-03-08 18:13 | IR ---
EXAMINATION TYPE: IR cvc insert central tunneled DATE OF EXAM: 03/06/2023 COMPARISON: NONE HISTORY: Hemodialysis catheter insertion, 0.5 minutes fluoroscopy time, total DAP 0.8714 Gycm2. Fluoroscopy was provided to the referring clinician.
[2023-03-08 20:53] LABS: Glucose,Whole Blood 172 mg/dL (70-110)
--- NOTE | 2023-03-08 23:26 | PN ---
PROGRESS NOTE DATE OF SERVICE: 03/08/2023 SUBJECTIVE: This is a 67-year-old gentleman, who was admitted with acute on chronic diastolic CHF, also had a cardiac shock. The patient is on newly started hemodialysis. No chest pain. No palpitation. OBJECTIVE: VITAL SIGNS: Pulse is 88, blood pressure 120/70, respirations 18. CHEST: A few scattered rhonchi. ABDOMEN: Soft. NERVOUS SYSTEM: Nonfocal. LABORATORY DATA: Hemoglobin 9.1, creatinine 2.70. ASSESSMENT: 1. Acute on chronic diastolic congestive heart failure. 2. Cardiogenic shock, status post pressor support. 3. Acute renal failure, acute kidney injury on newly started hemodialysis. 4. Right pleural effusion. 5. Acute hypoxic respiratory failure secondary to congestive heart failure acute exacerbation. 6. Atrial fibrillation, paroxysmal. 7. Hematuria. 8. Multiple complex medical issues. RECOMMENDATIONS AND DISCUSSION: Recommend to continue current management and continue symptomatic treatment. Continue the hemodialysis. Monitor the right pleural effusion. Closely follow with Pulmonary. Otherwise, recommend repeat labs. Hemodialysis per Nephrology. Guarded prognosis. Further recommendations to follow. MMODL / IJN: [id number] /
[2023-03-09] MEDS: HYDROcodone/APAP 5-325MG 1 EACH TAB PO PRN ×4 (05:45→23:44)
[2023-03-09 05:58] LABS: Glucose,Whole Blood 121 mg/dL (70-110)
[2023-03-09] MEDS: MIDODRINE 5 MG TAB PO SCH ×3 (06:11→17:12)
[2023-03-09] MEDS: INSULIN ASPART (NovoLOG) 100 UNIT/ML VIAL SQ SCH ×4 (06:11→20:49)
[2023-03-09] MEDS: ATORVASTATIN 40 MG TAB PO SCH (08:41)
[2023-03-09] MEDS: THIAMINE 100 MG TAB PO SCH (08:41)
[2023-03-09] MEDS: RIVAROXABAN 20 MG TAB PO SCH (08:41)
[2023-03-09] MEDS: ASPIRIN 81 MG PO SCH (08:41)
[2023-03-09] MEDS: CHOLECALCIFEROL 25 MCG (1000 IU) TABLET PO SCH (08:41)
[2023-03-09] MEDS: HYDROPHILIC CREAM 180 GM TUBE TOPICAL SCH (08:42)
[2023-03-09] MEDS: TORSEMIDE 20 MG TAB PO SCH (08:49)
[2023-03-09] MEDS: predniSONE 10 MG TAB PO SCH (08:49)
[2023-03-09] MEDS: atenoloL 25 MG TAB PO SCH ×2 (09:02→20:49)
[2023-03-09] MEDS: lisinopriL 20 MG TAB PO SCH (09:02)
--- NOTE | 2023-03-09 10:26 | XR ---
EXAMINATION TYPE: XR chest 1V portable DATE OF EXAM: 03/09/2023 COMPARISON: 03/06/2023 HISTORY: Pleural effusion TECHNIQUE: Single frontal view of the chest is obtained. FINDINGS: Stable bilateral consolidation and pleural effusion. Heart size stable. Hypertrophic degen erative changes of the spine and arthropathy of the shoulders. Dialysis catheter noted in position. N o pneumothorax. IMPRESSION: Stable bilateral consolidation and pleural effusion.
[2023-03-09] MEDS: PANTOPRAZOLE 40 MG/10 ML VIAL IVP SCH (10:48)
--- NOTE | 2023-03-09 11:29 | P.PN ---
Subjective Progress Note Date: 03/09/23 I am seeing this patient in new consultation today 02/25/2023 for suspected acute exacerbation of diastolic congestive heart failure. Patient is a 67-year-old white male with past medical history significant for atrial fibrillation, hyperlipidemia, hypertension, diabetes mellitus type 2, DVT, BPH, bullous pemphigoid and chronic back pain. Patient reportedly went to his pharmacist technician for a scheduled stress test yesterday, and was directed to the emergency room. He has been having shortness of breath that has progressively worsened over the last couple weeks. It is especially worse on exertion, and states he can only walk approximately 5 feet. He sleeps in a recliner at home. He's had progressively worsening generalized swelling. Denies any chest pain, heart palpitations, syncope. Chest x-ray on arrival showed cardiomegaly with pulmonary vascular congestion and bilateral pleural effusions. Patient is currently sitting up in bed, on 4 L/m nasal cannula, and is fairly comfortable. He does have gross anasarca. He is pale. Blood pressure is borderline. He has been started on midodrine, and may have to be transferred to the intensive care unit for norepinephrine infusion. Last blood pressure was 90/50. ECG shows atrial fibrillation with controlled ventricular rate. Currently receiving Lasix 40 mg 3 times a day. Barkley catheter has been inserted for accurate intake and output. Patient does have a component of acute kidney injury. He was hyperkalemic, with a potassium of 6.5 on arrival, and was given 10 units of regular insulin, 1 amp D50 W, 1 amp sodium bicarb, and Lokelma. Potassium level did come down to 5.8. BMP on arrival shows sodium 138, potassium down to 5.8, chloride of 112, serum bicarbonate 24, BUN 62, creatinine 2.17, glucose 84. CBC on arrival shows a WBC count of 5.7, hemoglobin 9.5, hematocrit 30.1, platelets 230. He is anemic, and his Xarelto dose was reportedly increased for A. fib prophylaxis back in September 2022. He was found to have new onset A. fib. He denies any bloody bowel movements or melena. Echocardiogram done at that time showed a normal ejection fraction of 55-60% without any valvular abnormality. NT proBNP was elevated at 5360. As stated above, patient has been hypotensive, and may require transfer to the intensive care unit on Levophed if no improvement with midodrine. On today's evaluation of of 02/26/2023, the patient is being seen in follow-up in the intensive care unit. He had a very complicated course yesterday. Note that he continued to have issues with hyperkalemia that was unresponsive to medical treatment. The patient also continued to have difficulties and hypotension, massive fluid overload and low urine output. He was not responding adequately to the diuretics. He was on high-dose pressors and his norepinephrine at a certain stage was running as high as 0.45 mcg/kg/m. As such, it was decided to proceed with hemodialysis. His control his potassium. No ultrafiltration was done. Dialysis was completed a potassium level improved and it dropped down to 4.9 and this morning is up to 5.1. Noted the patient was having episodes of sinus bradycardia yesterday due to his hyperkalemia. His cur rent cardiac rhythm is sinus. Rate is 65. His norepinephrine has been weaned down to 0.14 mcg/kg/m. He remains on a Lasix drip and is producing somewhere between 40-50 mL of urine output. He continues to have massive fluid overload and fluid weeping from the skin surface of his lower extremities. BUN is 44 with a creatinine of 1.9 and a sodium level is at 139 and a potassium level of 5.1. The patient was at 8.4 with a hemoglobin of 8.7. His ultrasound of the abdomen and the kidneys were done. The patient had no major abnormalities. His common bile duct measured 9 mm in size. No evidence of any hydronephrosis. His echocardiogram was also repeated yesterday and the patient was found to have left ventricular ejection fraction of 55-60%. He had mild RV dilatation. Mild pulmonary hypertension. No significant valvular abnormalities. The patient had a repeat chest x-ray today that showed bilateral pleural effusions and significant volume overload. The patient is currently on 100% nonrebreather facemask. Is arousable and is communicating and the is at the bedside. He does have a dialysis catheter in his left femoral vein. He also has a triple- lumen cath in his left subclavian vein. On today's evaluation of 02/27/2023, the patient is alert and awake and communicating. There is no significant improvement in his neurologic status since yesterday. In same time, there is improvement in volume status. The patient underwent already 2 sessions of hemodialysis and yesterday he received some ultrafiltration. The patient remains on IV albumin 12.5 g, 25%, every 8 hours and the patient is also on Lasix 10 mg an hour. Urine output is in order of 100 mL an hour. The patient has a BUN of 37 with a creatinine of 1.8. Potassium levels down to 4.4. The white cell cause of 9.1 with a hemoglobin of 8.0. His cardiac rhythm is still in nature fibrillation. His oxygenation is stable and the patient is currently on nasal cannula at 15 L. No major signs of any respiratory distress at this point. Hemoglobin is at 8.0. At the same time, the patient is on low-dose pressors and the patient is weaned off and his norepinephrine. norepinephrine is running at 0.08 mcg/kg/m. he remains on anticoagulation and he is on Xarelto . 02/28/2023, the patient is doing extremely well. He is on 4 L of oxygen by nasal cannula. He remains on Lasix drip at 10 mg an hour. Urine output is adequate. There is improvement in the edema as the patient is undergoing daily sessions of hemodialysis. He has already undergone 3 sessions of hemodialysis the last being yesterday. He is currently on 4 L O2. His off pressors. The patient's creatinine is down to 1.8 with a BUN of 30. Sodium level is at 136. White cell count of 8.0 with a hemoglobin of 7.7. Repeat chest x-ray was done this morning and shows moderate-sized bilateral pleural effusion and as such the patient continues to have some excess volume his chest. Nephrology is on the case. Pressors are off. Cardiac rhythm is atrial fibrillation. Remains on anticoagulation. 03/01/2023, patient was transferred also the ICU yesterday and the patient is currently being seen on a medical floor. He is doing well. No specific complaints. No chest pain. He continues to be on a Lasix drip at 10 mg an hour. His left is no hemodialysis was done yesterday. He is on no pressors for now. His edema is also improving although he does have some residual edema lower extremity bilaterally. He is on no pressors. Is on anticoagulation. No altered mentation. No chest pain. No other new complaints otherwise for now. The patient is seen today 03/02/2023 in follow-up on the regular medical floor. He is currently sitting up in bed. Awake and alert in no acute distress. He is maintaining O2 saturations in the 90s on 4 L/m per nasal cannula. He is continued on a Lasix drip at 10 mg per hour. The plan is for hemodialysis today. Urine output currently at 1300 ML's in the past 24 hours. Sodium 140. Potassium 5.1. Bicarb 31. BUN 32. Creatinine 2.54. Glucose 109. He is continued on midodrine. Pressure stable. The patient is seen today 03/03/2023 in follow-up on the regular medical floor. He is currently sitting up in bed. Awake and alert in no acute distress. Maintaining O2 saturations in the 90s on 5 L/m per nasal cannula. Continues on a Lasix drip at 10 mg per hour. Currently in a -2.1 L balance. White count 11.2. Hemoglobin 8.7. Platelets 173. Sodium 137. Potassium 5.2. Bicarb 28. BUN 32. Creatinine 2.95. Glucose 160. He is continued on Xarelto. The patient is seen today 03/04/2023 in follow-up on the regular medical floor. He is awake and alert in no acute distress. Breathing easier today compared to yesterday. He did undergo hemodialysis with another 3 L of fluid removed. He has less edema. Today's labs are pending. He is making urine. He remains on Solu-Medrol. Continued on Xarelto for anticoagulation. The patient is seen today 03/05/2023 in follow-up on the regular medical floor. He is currently resting comfortably in bed. Maintaining O2 saturations in the 90s on 5 L/m per nasal cannula. Currently receiving iron replacement. No worse tonya shortness of breath, cough or congestion. He did receive hemodialysis again yesterday with 3 L ultrafiltration. As for ultrafiltration again today per nephrology. Plan is for permacath placement and removal of the femoral catheter tomorrow. White count 9.9. Hemoglobin 7.7. Sodium 131. Potassium 4.6. Bicarb 27. BUN 33. Creatinine 3.16. The patient is seen today 03/06/2023 in follow-up on the regular medical floor. He is awake and alert in no acute distress. Feeling better today compared to yesterday. Requiring 6-7 liters high flow nasal cannula with O2 saturations in the mid to upper 90s. Follow-up chest x-ray shows similar findings with bilateral pleural effusions right greater than left. He is continuing to receive daily dialysis for ultrafiltration. Plan is for permacath placement today. Blood sugar 193. The patient is seen today 03/07/2023 in follow-up on the regular medical floor. He sitting up in bed. Awake and alert in no acute distress. He continues to maintain good O2 saturations in the mid to upper 90s on 6 L high flow nasal cannula. He did undergo a right jugular dialysis catheter placement. Left femoral temporary catheter was removed. His urine output has picked up with 750 ML's overnight. He did receive ultrafiltration. He is currently in a -2 L balance. Chest x-ray continues to show patchy basilar infiltrates right greater than left. Blood sugar 111. The patient is seen today 03/08/2023 in follow-up on the regular medical floor. He is currently sitting up in a chair. Awake and alert in no acute distress. Breathing a bit easier today compared to yesterday. Maintaining good O2 saturations in the 90s on 4 L/m per nasal cannula. Afebrile. Hemodynamically stable. He did receive hemodialysis yesterday with 3.8 L removed. Currently in a -1.2 L balance. He is making good urine. White count 10.4. Hemoglobin 9.1. Platelets 302. 33. Potassium 3.9. Bicarb 31. BUN 34. Creatinine 2.70. Glucose 124. The patient is seen today 03/09/2023 in follow-up on the regular medical floor. He is currently resting comfortably in bed. Awake and alert in no acute distress. Maintaining good O2 saturations in the high 90s on 5 L high flow nasal cannula. Afebrile. Hemodynamically stable. X-ray shows stable bilateral pleural effusions. It is for hemodialysis today. Continued on torsemide. Anticoagulated with Xarelto. Objective - Vital Signs Vital signs: Vital Signs Temp 98.4 F 03/09/23 00:16 Pulse 68 03/09/23 00:16 Resp 19 03/09/23 00:16 BP 165/67 03/09/23 00:16 Pulse Ox 98 03/09/23 00:16 FiO2 100 02/27/23 08:19 Intake & Output 03/08/23 03/09/23 03/09/23 18:59 06:59 18:59 Output Total 700 650 Balance -700 -650 Weight 122.5 kg Output: Urine 700 650 Other: Voiding Method Indwelling Catheter Indwelling Catheter Indwelling Catheter # Bowel Movements 1 ABP, PAP, CO, CI - Last Documented Arterial Blood Pressure 132/44 - Exam GENERAL EXAM: Alert, pleasant 67-year-old male, resting comfortably in bed, on 5 L nasal cannula, in no acute distress HEAD: Normocephalic. EYES: Normal reaction of pupils, equal size. NOSE: Clear with pink turbinates. THROAT: No erythema or exudates. NECK: No masses, no JVD. Right IJ permacath in place CHEST: No chest wall deformity. LUNGS: Equal air entry with bibasilar inspiratory crackles. Right greater than left. CVS: S1 and S2 normal with no audible murmur, irregular rhythm. No extra heart sounds ABDOMEN: Obese abdomen, no hepatosplenomegaly, active bowel sounds, no guarding or rigidity. SPINE: No scoliosis or deformity SKIN: No rashes. Bilateral buttocks stage II pressure injuries. Do not appear infected. There is generalized ecchymosis. CENTRAL NERVOUS SYSTEM: No focal deficits, tone is normal in all 4 extremities. EXTREMITIES: There is peripheral edema pitting edema of bilateral upper and lower extremities, +1. No clubbing, or cyanosis. Peripheral pulses are intact. - Labs CBC & Chem 7: 03/08/23 08:07 03/08/23 08:07 Labs: Abnormal Lab Results - Last 24 Hours (Table) 03/08/23 03/08/23 03/09/23 Range/Units 16:09 20:52 05:57 POC Glucose (mg/dL) 298 H 172 H 121 H (70-110) mg/dL Assessment and Plan Assessment: Acute hypoxemic respiratory failure secondary to exacerbation of diastolic congestive heart failure. Chest x-ray on arrival shows cardiomegaly with pulmonary vascular congestion and small bilateral pleural effusions. NT proBNP was elevated at 5360. Recent echocardiogram back in September, shows left ventricular hypertrophy, with a preserved left ventricular ejection fraction of 55-60%, and no valvular abnormalities reported. Chest x-ray continues to show bilateral pleural effusions right greater than left and currently is on 5 L of oxygen by nasal cannula. Plan is for hemodialysis today and the patient remains on Demadex. Right IJ permacath placed. Bilateral pleural effusions, repeat chest x-ray shows small to moderate-sized pleural effusion bilaterally right greater than left. Encephalopathy, recovered Hypotension, recovered Bullous pemphigus Atrial fibrillation with controlled ventricular rate, anticoagulated on Xarelto, rate is controlled for now Acute kidney injury, possibly cardiorenal versus ATN. Creatinine today is at 2.7, no hydronephrosis, the patient is undergoing hemodialysis with ultrafiltration and the patient is also on torsemide Hyperkalemia, improved with hemodialysis. The patient also received medical management for hyperkalemia and his potassium level was refractory and as such required dialysis. The patient has multiple sessions of hemodialysis in the potassium level is normalized. Anemia, no reported acute blood loss. Mildly macrocytic Hypoalbuminemia and gross anasarca Pressure injuries, stage II, on bilateral buttocks Hyperlipidemia BPH Obesity, with a BMI of 40 kg/m Plan: The patient was seen and evaluated Medications reviewed Titrate the FiO2 as tolerated Plan is for hemodialysis today We will continue to follow I have personally seen and examined the patient, performed the documentation and the assessment and plan as written. Number of minutes spent on the visit: 10.
[2023-03-09 11:35] LABS: Glucose,Whole Blood 251 mg/dL (70-110)
--- NOTE | 2023-03-09 12:45 | P.PN ---
Subjective Progress Note Date: 03/09/23 Patient is a pleasant 67-year-old male with a history of diastolic dysfunction normal ejection fraction the past came in with anasarca fluid overload and shortness of breath has been going on for about 2 weeks. Patient has significant anasarca involving the entire abdomen bilateral lower extremity is 4 + pitting pedal edema and edema of the bilateral upper extremity is. Patient has a baseline creatinine of around 1.30-1.5 present creatinine is 2.3 2. Patient is hypotensive facet of troponin is negative without any significant EKG changes. Patient does have history of atrial fibrillation presently rate controlled on atenolol which is being held at this time because of hypotension patient also has serum potassium of around 6.8 presently patient was given IV insulin and calcium gluconate. Patient is presently on norepinephrine drip, Lasix drip. Liver enzymes are within normal limits. Patient doesn't have any leukocytosis. Patient doesn't have any fever chills denied any cough with the significant sputum production. 02/26/2023 Patient is seen and evaluated in follow-up this morning in the ICU with multiple medical consultations following. Patient with continued hyperkalemia maintained on Lasix drip with continued hypotension requiring emergent dialysis catheter and receiving dialysis currently. Patient is also maintained on a nonrebreather for continued shortness of breath. Patient is very lethargic although arousable but fatigues very easily. Urine output has improved slightly. at bedside with questions and concerns were answered. Patient is currently afebrile continues with shortness of breath denies chest pain and is requiring some pressor support. Kidney functions as well as potassium is improved since dialysis. Overall prognosis is extremely guarded. 02/27/2023 Patient is seen in follow-up continues to be in the ICU currently receiving hemodialysis and tolerating. Continues on low-dose Levophed which is currently being weaned. Continues on Lasix drip at 10 mL's per hour with some improvement in urine output. Patient was on 15 L high flow this morning along with nasal cannula and has titrated down to 8 L high flow and recommended weaning FiO2 as tolerated. Plan is for hemodialysis daily for now and will follow-up with labs. Kidney functions are improving and BUN is 37 with a creatinine of 1.8. Hemoglobin currently stable at 8.0 most likely anemia of chronic disease. Patient is afebrile report some improvement in his shortness of breath although continues to be short of breath. Patient extremely weak and does have history of chronic back pain and was scheduled to have outpatient procedure. Patient with significant upper and lower extremity edema pitting with minimal improvement. 02/28/2023 Patient remains in intensive care unit and continues on hemodialysis currently undergoing this AM at bedside. Noted that he has chronic low back at baseline and he mostly transfers with a walker at baseline he was scheduled for a lumbar injection outpatient at [facility] but was not cleared by cardiology to go off his medications. PT/OT will be consulted. He has adequte urine output. He remains no lasix gtt. He has been weaned off vasopressors and blood pressure is stable. Patient received albumin. Chest xray from this AM has not been resulted yet. Sodium is 136, potassium 4.2, BUN 30, creatinine 1.87 which is stable. 03/01/2023 Patient has been moved out of the intensive care unit and is currently evaluated on the medical floor. He does have a sacral stage II pressure injury and this is causing him some discomfort. He is being repositioned and would recommend doing this every 2-3 hours. He is on a Lasix drip at 10 mL's per hour he has a urine output of 4.9 L in the last 24 hours. He continues with significant peripheral edema he has +2 pitting up to his thighs and scrotum as well as his upper extremities. His creatinine is increased up to 2.24 today. Vitamin D level found to be low at 10.4 and patient is started on oral supplementation. 03/02/2023 Patient is seen and evaluated in follow-up today awaiting to receive dialysis today. Patient being followed by nephrology and will discuss further about outpatient dialysis as patient continues with temporary catheter. Patient remains on Lasix drip and diuresis and well and continues with significant overload. Patient with bullous pemphigus and was evaluated by wound care recommending wound care as patient also has decubitus ulcers. Will consult infectious disease and appreciate input and recommendations regarding concerns for possible underlying infection of the left forearm. Will add some IV steroids as well and monitor and recommend Accu-Cheks before meals and at bedtime and will use sliding scale as needed. Patient is currently afebrile with no reports of worsening shortness of breath or chest pains. Patient is currently maintaining good oxygen saturations above 95% on 4-6 L via nasal cannula. 03/03/2023 Patient is seen and evaluated today with multiple consultations following. Hematology/Oncology consulted and has ordered 24-hour urine along with additional testing which is pending. Patient is maintained on Lasix 80 mg IV push twice daily and metolazone being ordered. Patient continues with significant volume overload with no plans of dialysis today. Patient continues with temporary dialysis catheter and will need to discuss further with nephrology if patient will require permanent dialysis catheter and outpatient hemodialysis to be arranged. Patient with some weakness and recommend physical therapy evaluation daily. Patient also continued on local wound care of the buttocks area and has history of bullous pemphigus and infectious disease consulted. Patient started on low-dose IV steroids and will continue with Accu- Cheks before meals and at bedtime and monitor for some improvement. Hemoglobin is stable at 8.7 and platelets are 173. Sodium is 137 with a potassium of 5.2, BUN is 32 with a creatinine of 2.95, magnesium is 2.1. Patient is currently afebrile with no reports of chest pain or worsening shortness of breath. Patient is diuresing and currently maintained on 5 L via nasal cannula with an oxygen saturation of 98%. Recommend weaning FiO2 as tolerated as patient does not normally wear oxygen outpatient. 03/04/2023 Patient is seen and evaluated in follow-up today currently awaiting labs which are pending at this time. Per nursing staff no further reports of blood noted in the urine and will resume anticoagulant. Nephrology following awaiting follow-up labs and awaiting to see if hemodialysis is to be done today. Patient reports to feeling better currently maintained on 5 L and denies worsening shortness of breath. Patient is also continued on IV steroids and bullous pemp higus lesions appear to be somewhat improved. We'll continue for another day along with sliding scale and Accu-Cheks and titrate down on the dose of steroids. Continue with local wound care. Patient also being followed by physical therapy and possible discussion of ECF with case management following. Urology has been consulted for the hematuria although hematuria has resolved and will continue with indwelling Barkley catheter for intake and output monitoring and monitor for any further bleeding. 03/05/2023 Patient is seen and evaluated this morning maintained on 5-6 L of oxygen via nasal cannula with oxygen saturations above 90%. Multiple medical consultations including vascular surgery consulted again as patient will be requiring permanent catheter placement for hemodialysis outpatient. Patient to receive ultrafiltration today as well as tomorrow. Plan is for permacath placement tomorrow and will hold anticoagulation for now. Hemoglobin is stable at 7.7, sodium is 131 with a potassium of 4.6, BUN is 33 and creatinine is 3.16. Blood sugars remain elevated at times and will continue current regimen. Patient is receiving IV steroids and will discontinue tomorrow. Transition to oral steroid taper. Patient is afebrile with no reports of chest pain or worsening shortness of breath. Patient tolerating diet and will be nothing by mouth at midnight for dialysis catheter placement. Hematology/oncology following as well awaiting labs that were sent out. Per case management plan is for home with home care and arranging for outpatient dialysis. Recommend physical therapy daily. 03/06/2023 Patient is seen and evaluated in follow-up this morning currently scheduled to undergo dialysis catheter placement with Dr. Cano today. Anticoagulation currently on hold and will resume post. Patient maintained on IV steroids for pemphigus showing some improvement and will titrate and start oral steroids 20 mg daily for the next 2 days and then 10 mg daily for 2 days then discontinue. Recommend continue monitoring Accu-Cheks and continue sliding scale. Patient is currently afebrile reports improvements in shortness of breath although continues to be extremely dyspneic with minimal exertion. Patient is continued on 6-7 L nasal cannula high flow. Patient was not wearing oxygen prior to admission. Patient will need oxygen on discharge to manage CHF. Working t owards at least 4-5 L nasal cannula with tolerance. Patient is extremely weak with physical therapy evaluating and plans are for home with home care. Case management following and arranging for outpatient dialysis. 03/09/2023 Patient is seen in follow-up today with multiple medical consultations following. Patient has received permanent dialysis catheter on the chest and scheduled for hemodialysis today. Case management following and has arranged for outpatient dialysis to occur on Thursday/Thursday/Thursday with next session being Thursday at 6 AM. Patient with significant weakness reports has been up sitting in the chair although has not been up and walking and plan is to return home with . Will have physical therapy evaluate the patient on walking. Patient had been refusing to go to rehab. Patient continues on 5 L oxygen via nasal cannula and will require oxygen on discharge to manage CHF. Chest x-ray shows stable bilateral pleural effusions and again is scheduled for dialysis today. Will ask physical therapy to evaluate the patient either later this afternoon or early a.m. as patient reports he is refusing to work with them if receiving dialysis today. Patient is afebrile with no reports of chest pain or worsening shortness of breath. Patient reports to tolerating diet with no reports of nausea or vomiting noted. Review of systems: Constitutional: no reports of fatigue, no fever, or chills Cardiovascular: No reports of chest pain or palpitations Respiratory: reports some improvement in shortness of breath GI: No reports of nausea, vomiting, or diarrhea : No reports of dysuria or retention Neurovascular: reports of generalized weakness All medications have been reviewed PHYSICAL EXAMINATION: GENERAL: The patient is awake, alert and oriented x3. Ill-appearing, elderly appearing, morbidly Obese HEENT: Pupils are round and equally reacting to light. EOMI. No scleral icterus. No conjunctival pallor. Normocephalic, atraumatic. No pharyngeal erythema. No thyromegaly. CARDIOVASCULAR: S1 and S2 muffled PULMONARY: Diminished breath sounds bilaterally with some coarse rhonchi noted, faint crackles at the bases noted ABDOMEN: Soft, nontender, nondistended, normoactive bowel sounds. No palpable organomegaly. MUSCULOSKELETAL: No joint swelling or deformity. EXTREMITIES: No cyanosis, clubbing, anasarca, pitting pedal edema as mentioned above edema of the abdominal wall. Some improvement in edema of upper and lower extremities NEUROLOGICAL: Gross neurological examination did not reveal any focal deficits. SKIN: Stage II pressure ulcers, pale Assessment: -Acute on chronic diastolic congestive heart failure -Cardiogenic shock status post pressor support, resolved -Acute hypoxic respiratory failure: Secondary to heart failure exacerbation. -Atrial fibrillation, paroxysmal patient is rate controlled at this time -Right pleural effusion -Hematuria, most likely related to trauma from indwelling Barkley catheter, improved -Acute kidney injury with acute tubular necrosis secondary to hypotension and cardiorenal syndrome, improving requiring emergent dialysis, Status post permanent dialysis catheter placement 03/06/2023 -Chronic kidney disease probably secondary to nephrosclerosis -Hyperkalemia secondary to acute renal failure, requiring dialysis, improving -Macrocytic anemia -Pressures ulcers stage II bilateral buttocks, present on admission -Morbid obesity with a BMI of 40.9 -possible sleep apnea, will need outpatient sleep study -hyperlipidemia history -Benign prostatic hypertrophy, maintained on tamsulosin -Bullous pemphigus has a wound in the left lower extremity, continue local wound care -Vitamin D deficiency -Chronic low back pain -GI prophylaxis -DVT prophylaxis: On anticoagulation as mentioned above -Full code Plan: Patient continues to be on Demadex with nephrology following and plan is to con tinue dialysis for ultrafiltration. Permanent dialysis catheter placed and being arranged for outpatient for Thursday/Thursday/Thursday Awaiting dialysis today Recommend PT/OT therapy reevaluation as patient reports has been sitting in the chair but not up and walking and plan is to return home with home care. Will await follow-up PT/OT therapy notes and discuss further with case management. Patient would likely benefit from rehab although patient had been refusing to go to ECF. Continue with renal diet and strict intake and output. Wean FiO2 as tolerated currently maintained on 5 L. Patient does not wear oxygen outpatient. Patient will require oxygen on discharge of 5 L via nasal cannula to manage CHF. Hematology/Oncology following per nephrology with abnormal lab values and will need outpatient follow-up Follow-up labs ordered for a.m. Recommend turning the patient every 2-3 hours and frequent offloading of the sacral area with continued wound care Due to multiple complex medical issues, prognosis is extremely guarded The impression and plan of care has been dictated by Sandra Ayala, Nurse Practitioner as directed. Dr. Cleopatra MD I have performed a history and examination and MDM of this patient, discussed the same with the dictator, and agree with the dictator's assessment and plan as written ,documented as a scribe. Based on total visit time, I have performed more than 50% of the visit. Objective - Vital Signs Vital signs: Vital Signs Temp 98.4 F 03/09/23 00:16 Pulse 68 03/09/23 00:16 Resp 19 03/09/23 00:16 BP 165/67 03/09/23 00:16 Pulse Ox 98 03/09/23 00:16 FiO2 100 02/27/23 08:19 Intake & Output 03/08/23 03/09/23 03/09/23 18:59 06:59 18:59 Output Total 700 650 Balance -700 -650 Weight 122.5 kg Output: Urine 700 650 Other: Voiding Method Indwelling Catheter Indwelling Catheter Indwelling Catheter # Bowel Movements 1 ABP, PAP, CO, CI - Last Documented Arterial Blood Pressure 132/44 - Labs CBC & Chem 7: 03/08/23 08:07 03/08/23 08:07 Labs: Abnormal Lab Results - Last 24 Hours (Table) 03/08/23 03/08/23 03/09/23 Range/Units 16:09 20:52 05:57 POC Glucose (mg/dL) 298 H 172 H 121 H (70-110) mg/dL 03/09/23 Range/Units 11:34 POC Glucose (mg/dL) 251 H (70-110) mg/dL
--- NOTE | 2023-03-09 13:09 | P.PN ---
Subjective Patient is seen for follow-up for acute kidney injury and hyperkalemia. Patient is currently maintained on hemodialysis. Urine output has improved but he remains significantly volume overloaded. Tolerated dialysis well with UF of 3.8 L on 03/07/20 Scheduled for hemodialysis today. Objective - Vital Signs Vital signs: Vital Signs Temp 98.4 F 03/09/23 00:16 Pulse 68 03/09/23 00:16 Resp 19 03/09/23 00:16 BP 165/67 03/09/23 00:16 Pulse Ox 98 03/09/23 00:16 FiO2 100 02/27/23 08:19 Intake & Output 03/08/23 03/09/23 03/09/23 18:59 06:59 18:59 Output Total 700 650 Balance -700 -650 Weight 122.5 kg Output: Urine 700 650 Other: Voiding Method Indwelling Catheter Indwelling Catheter Indwelling Catheter # Bowel Movements 1 ABP, PAP, CO, CI - Last Documented Arterial Blood Pressure 132/44 - Exam Patient is awake, comfortable, no acute distress, mentation has improved Examination of the heart S1 and S2 Examination lungs decreased breath sounds at the bases basal crackles are heard. Abdomen is soft distended obese nontender Examination lower extremity shows edema 2+ bilaterally with chronic skin changes ASSISTANT COUNSEL exam grossly intact - Labs CBC & Chem 7: 03/08/23 08:07 03/08/23 08:07 Labs: Abnormal Lab Results - Last 24 Hours (Table) 03/08/23 03/08/23 03/09/23 Range/Units 16:09 20:52 05:57 POC Glucose (mg/dL) 298 H 172 H 121 H (70-110) mg/dL 03/09/23 Range/Units 11:34 POC Glucose (mg/dL) 251 H (70-110) mg/dL Assessment and Plan Assessment: 1. Acute kidney injury, non-oliguric ATN secondary to hypotension. Started on hemodialysis on 02/25/2023. UA shows 3+ protein and large blood. Urine output has improved but patient remains on dialysis due to significant volume overload. 2. Acute hyperkalemia associated with acute kidney injury and use of LATONIA inhibitor's in the setting of hypotension. Resolved 3. Volume overload, maintained on Demadex and receiving hemodialysis. 4. Acute diastolic CHF. Ejection fraction was 55-60% on echocardiogram in September 2022. 5. Hypotension on initial admission currently improved 6. Chronic A. fib with controlled ventricular response maintained on xarelto 7. Acute hypoxic respiratory failure secondary to CHF and volume overload. Improved 8. 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 Left kidney nodule, to be monitored as outpatient Plan: Continue with torsemide Repeat hemodialysis today with goal UF of about 2-2.5 L. Patient may need to continue with dialysis as outpatient
[2023-03-09 14:30] LABS: BUN/Creat Ratio 12.22 Ratio (12.00-20.00); Blood Urea Nitrogen 39.1 mg/dL (9.0-27.0); Calcium 7.3 mg/dL (8.7-10.3); Carbon Dioxide 25.9 mmol/L (21.6-31.8); Chloride 101 mmol/L (96-109); Glucose 132 mg/dL (70-110); Potassium 3.9 mmol/L (3.5-5.5); Sodium 138 mmol/L (135-145)
[2023-03-09 14:53] VITALS: BMI 39.9
[2023-03-09 14:56] LABS: Basophils # (A) 0.01 X 10*3/uL (0.00-0.10); Basophils % (A) 0.1 %; Eosinophils # (A) 0.34 X 10*3/uL (0.04-0.35); Eosinophils % (A) 3.2 %; HCT 27.5 % (39.6-50.0); HGB 8.3 d/dL (13.0-17.0); Lymphocytes # (A) 1.38 X 10*3/uL (0.90-5.00); Lymphocytes % (A) 13.2 %; MCH 31.1 pg (27.0-32.0); MCHC 30.2 d/dL (32.0-37.0); Mean Platelet Volume 9.5 FL (9.5-12.2); Monocytes # (A) 0.64 X 10*3/uL (0.20-1.00); Monocytes % (A) 6.1 %; NRBC Per 100 WBC 0 X 10*3/uL (0.00-0.01); Neutrophils # (A) 7.86 X 10*3/uL (1.80-7.70); Neutrophils % (A) 75.1 %; Platelet Count 313 X 10*3/uL (140-440); RBC 2.67 X 10*6/uL (4.40-5.60); RDW 15.9 % (11.5-14.5); WBC 10.47 X 10*3/uL (4.50-10.00)
--- NOTE | 2023-03-09 16:02 | P.PN ---
Subjective Progress Note Date: 03/09/23 Principal diagnosis: IgG lambda on immunofixation In follow-up today patient is sitting up in bed, the upper extremity swelling is starting to go down, patient is in general pretty weak. He continues on dialysis at this time Objective - Vital Signs Vital signs: Vital Signs Temp 98.6 F 03/09/23 13:53 Pulse 118 H 03/09/23 13:53 Resp 19 03/09/23 13:53 BP 116/75 03/09/23 13:53 Pulse Ox 96 03/09/23 13:53 FiO2 100 02/27/23 08:19 Intake & Output 03/08/23 03/09/23 03/09/23 18:59 06:59 18:59 Output Total 700 650 Balance -700 -650 Weight 122.5 kg 122.5 kg Output: Urine 700 650 Other: Voiding Method Indwelling Catheter Indwelling Catheter Indwelling Catheter # Bowel Movements 1 ABP, PAP, CO, CI - Last Documented Arterial Blood Pressure 132/44 - Constitutional General appearance: Present: cooperative, no acute distress, obese - EENT Eyes: Present: anicteric sclerae, EOMI ENT: Present: hearing grossly normal - Respiratory Details: Respirations even and unlabored at rest - Gastrointestinal General gastrointestinal: Present: soft - Integumentary Integumentary Comment(s): In on the bilateral upper extremities is dry, scaly Integumentary: Present: pale - Neurologic Neurologic: Present: CNII-XII intact - Musculoskeletal Musculoskeletal: Present: generalized weakness - Psychiatric Psychiatric: Present: A&O x's 3, appropriate affect, intact judgment & insight - Labs CBC & Chem 7: 03/09/23 06:31 03/09/23 06:31 Labs: Abnormal Lab Results - Last 24 Hours (Table) 03/08/23 03/08/23 03/09/23 Range/Units 16:09 20:52 05:57 WBC (4.50-10.00) X 10*3/uL RBC (4.40-5.60) X 10*6/uL Hgb (13.0-17.0) d/dL Hct (39.6-50.0) % MCV (80.0-97.0) FL MCHC (32.0-37.0) d/dL RDW (11.5-14.5) % Neutrophils # (1.80-7.70) X 10*3/uL BUN (9.0-27.0) mg/dL Creatinine (0.6-1.5) mg/dL Est GFR (CKD-EPI) (>=60) Glucose (70-110) mg/dL POC Glucose (mg/dL) 298 H 172 H 121 H (70-110) mg/dL Calcium (8.7-10.3) mg/dL 03/09/23 03/09/23 03/09/23 Range/Units 06:31 06:31 11:34 WBC 10.47 H (4.50-10.00) X 10*3/uL RBC 2.67 L (4.40-5.60) X 10*6/uL Hgb 8.3 L (13.0-17.0) d/dL Hct 27.5 L (39.6-50.0) % MCV 103.0 H (80.0-97.0) FL MCHC 30.2 L (32.0-37.0) d/dL RDW 15.9 H (11.5-14.5) % Neutrophils # 7.86 H (1.80-7.70) X 10*3/uL BUN 39.1 H (9.0-27.0) mg/dL Creatinine 3.2 H (0.6-1.5) mg/dL Est GFR (CKD-EPI) 20 L (>=60) Glucose 132 H (70-110) mg/dL POC Glucose (mg/dL) 251 H (70-110) mg/dL Calcium 7.3 L (8.7-10.3) mg/dL Assessment and Plan (1) IgG lambda monoclonal gammopathy Current Visit: Yes Status: Acute Priority: High Code(s): D47.2 - MONOCLONAL GAMMOPATHY SNOMED Code(s): 69956013 Plan: IgG lambda monoclonal gammopathy -IgG lambda seen on immunofixation, protein electrophoresis no measurable quantity reported, no M spike. 24 hours Urine PEP pending. K/L Elevated with a normal ratio -Serum kappa/lambda light chains elevated, normal ratio. -Pending final results of all the testing ordered. Suspect this finding may be related to inflammation. Patient is going to require follow-up labs in a couple of months. Macrocytic anemia -Iron studies show a low saturation, ferritin 161. Would anticipate ferritin to be elevated because of comorbid conditions. With low saturation and normal ferritin of 161 patient is likely iron deficient. Nephrology has ordered parenteral iron. -Hgb is stable at this time
[2023-03-09 16:28] LABS: Glucose,Whole Blood 271 mg/dL (70-110)
[2023-03-09 20:40] LABS: Glucose,Whole Blood 174 mg/dL (70-110)
[2023-03-10] MEDS: HYDROcodone/APAP 5-325MG 1 EACH TAB PO PRN ×4 (05:48→23:11)
[2023-03-10 06:19] LABS: Glucose,Whole Blood 104 mg/dL (70-110)
[2023-03-10] MEDS: INSULIN ASPART (NovoLOG) 100 UNIT/ML VIAL SQ SCH ×4 (06:23→22:25)
[2023-03-10] MEDS: MIDODRINE 5 MG TAB PO SCH ×4 (06:24→17:15)
[2023-03-10] MEDS: atenoloL 25 MG TAB PO SCH ×2 (09:02→22:26)
[2023-03-10] MEDS: THIAMINE 100 MG TAB PO SCH (09:02)
[2023-03-10] MEDS: ASPIRIN 81 MG PO SCH (09:02)
[2023-03-10] MEDS: predniSONE 10 MG TAB PO SCH (09:02)
[2023-03-10] MEDS: CHOLECALCIFEROL 25 MCG (1000 IU) TABLET PO SCH (09:02)
[2023-03-10] MEDS: ATORVASTATIN 40 MG TAB PO SCH (09:02)
[2023-03-10] MEDS: lisinopriL 20 MG TAB PO SCH (09:04)
[2023-03-10] MEDS: PANTOPRAZOLE 40 MG/10 ML VIAL IVP SCH (09:04)
[2023-03-10] MEDS: RIVAROXABAN 20 MG TAB PO SCH (09:04)
[2023-03-10] MEDS: TORSEMIDE 20 MG TAB PO SCH (09:04)
[2023-03-10] MEDS: HYDROPHILIC CREAM 180 GM TUBE TOPICAL SCH (09:05)
--- NOTE | 2023-03-10 11:51 | P.PN ---
Subjective Progress Note Date: 03/10/23 I am seeing this patient in new consultation today 02/25/2023 for suspected acute exacerbation of diastolic congestive heart failure. Patient is a 67-year-old white male with past medical history significant for atrial fibrillation, hyperlipidemia, hypertension, diabetes mellitus type 2, DVT, BPH, bullous pemphigoid and chronic back pain. Patient reportedly went to his center medical and lab director for a scheduled stress test yesterday, and was directed to the emergency room. He has been having shortness of breath that has progressively worsened over the last couple weeks. It is especially worse on exertion, and states he can only walk approximately 5 feet. He sleeps in a recliner at home. He's had progressively worsening generalized swelling. Denies any chest pain, heart palpitations, syncope. Chest x-ray on arrival showed cardiomegaly with pulmonary vascular congestion and bilateral pleural effusions. Patient is currently sitting up in bed, on 4 L/m nasal cannula, and is fairly comfortable. He does have gross anasarca. He is pale. Blood pressure is borderline. He has been started on midodrine, and may have to be transferred to the intensive care unit for norepinephrine infusion. Last blood pressure was 90/50. ECG shows atrial fibrillation with controlled ventricular rate. Currently receiving Lasix 40 mg 3 times a day. Barkley catheter has been inserted for accurate intake and output. Patient does have a component of acute kidney injury. He was hyperkalemic, with a potassium of 6.5 on arrival, and was given 10 units of regular insulin, 1 amp D50 W, 1 amp sodium bicarb, and Lokelma. Potassium level did come down to 5.8. BMP on arrival shows sodium 138, potassium down to 5.8, chloride of 112, serum bicarbonate 24, BUN 62, creatinine 2.17, glucose 84. CBC on arrival shows a WBC count of 5.7, hemoglobin 9.5, hematocrit 30.1, platelets 230. He is anemic, and his Xarelto dose was reportedly increased for A. fib prophylaxis back in September 2022. He was found to have new onset A. fib. He denies any bloody bowel movements or melena. Echocardiogram done at that time showed a normal ejection fraction of 55-60% without any valvular abnormality. NT proBNP was elevated at 5360. As stated above, patient has been hypotensive, and may require transfer to the intensive care unit on Levophed if no improvement with midodrine. On today's evaluation of of 02/26/2023, the patient is being seen in follow-up in the intensive care unit. He had a very complicated course yesterday. Note that he continued to have issues with hyperkalemia that was unresponsive to medical treatment. The patient also continued to have difficulties and hypotension, massive fluid overload and low urine output. He was not responding adequately to the diuretics. He was on high-dose pressors and his norepinephrine at a certain stage was running as high as 0.45 mcg/kg/m. As such, it was decided to proceed with hemodialysis. His control his potassium. No ultrafiltration was done. Dialysis was completed a potassium level improved and it dropped down to 4.9 and this morning is up to 5.1. Noted the patient was having episodes of sinus bradycardia yesterday due to his hyperkalemia. His cur rent cardiac rhythm is sinus. Rate is 65. His norepinephrine has been weaned down to 0.14 mcg/kg/m. He remains on a Lasix drip and is producing somewhere between 40-50 mL of urine output. He continues to have massive fluid overload and fluid weeping from the skin surface of his lower extremities. BUN is 44 with a creatinine of 1.9 and a sodium level is at 139 and a potassium level of 5.1. The patient was at 8.4 with a hemoglobin of 8.7. His ultrasound of the abdomen and the kidneys were done. The patient had no major abnormalities. His common bile duct measured 9 mm in size. No evidence of any hydronephrosis. His echocardiogram was also repeated yesterday and the patient was found to have left ventricular ejection fraction of 55-60%. He had mild RV dilatation. Mild pulmonary hypertension. No significant valvular abnormalities. The patient had a repeat chest x-ray today that showed bilateral pleural effusions and significant volume overload. The patient is currently on 100% nonrebreather facemask. Is arousable and is communicating and the is at the bedside. He does have a dialysis catheter in his left femoral vein. He also has a triple- lumen cath in his left subclavian vein. On today's evaluation of 02/27/2023, the patient is alert and awake and communicating. There is no significant improvement in his neurologic status since yesterday. In same time, there is improvement in volume status. The patient underwent already 2 sessions of hemodialysis and yesterday he received some ultrafiltration. The patient remains on IV albumin 12.5 g, 25%, every 8 hours and the patient is also on Lasix 10 mg an hour. Urine output is in order of 100 mL an hour. The patient has a BUN of 37 with a creatinine of 1.8. Potassium levels down to 4.4. The white cell cause of 9.1 with a hemoglobin of 8.0. His cardiac rhythm is still in nature fibrillation. His oxygenation is stable and the patient is currently on nasal cannula at 15 L. No major signs of any respiratory distress at this point. Hemoglobin is at 8.0. At the same time, the patient is on low-dose pressors and the patient is weaned off and his norepinephrine. norepinephrine is running at 0.08 mcg/kg/m. he remains on anticoagulation and he is on Xarelto . 02/28/2023, the patient is doing extremely well. He is on 4 L of oxygen by nasal cannula. He remains on Lasix drip at 10 mg an hour. Urine output is adequate. There is improvement in the edema as the patient is undergoing daily sessions of hemodialysis. He has already undergone 3 sessions of hemodialysis the last being yesterday. He is currently on 4 L O2. His off pressors. The patient's creatinine is down to 1.8 with a BUN of 30. Sodium level is at 136. White cell count of 8.0 with a hemoglobin of 7.7. Repeat chest x-ray was done this morning and shows moderate-sized bilateral pleural effusion and as such the patient continues to have some excess volume his chest. Nephrology is on the case. Pressors are off. Cardiac rhythm is atrial fibrillation. Remains on anticoagulation. 03/01/2023, patient was transferred also the ICU yesterday and the patient is currently being seen on a medical floor. He is doing well. No specific complaints. No chest pain. He continues to be on a Lasix drip at 10 mg an hour. His left is no hemodialysis was done yesterday. He is on no pressors for now. His edema is also improving although he does have some residual edema lower extremity bilaterally. He is on no pressors. Is on anticoagulation. No altered mentation. No chest pain. No other new complaints otherwise for now. The patient is seen today 03/02/2023 in follow-up on the regular medical floor. He is currently sitting up in bed. Awake and alert in no acute distress. He is maintaining O2 saturations in the 90s on 4 L/m per nasal cannula. He is continued on a Lasix drip at 10 mg per hour. The plan is for hemodialysis today. Urine output currently at 1300 ML's in the past 24 hours. Sodium 140. Potassium 5.1. Bicarb 31. BUN 32. Creatinine 2.54. Glucose 109. He is continued on midodrine. Pressure stable. The patient is seen today 03/03/2023 in follow-up on the regular medical floor. He is currently sitting up in bed. Awake and alert in no acute distress. Maintaining O2 saturations in the 90s on 5 L/m per nasal cannula. Continues on a Lasix drip at 10 mg per hour. Currently in a -2.1 L balance. White count 11.2. Hemoglobin 8.7. Platelets 173. Sodium 137. Potassium 5.2. Bicarb 28. BUN 32. Creatinine 2.95. Glucose 160. He is continued on Xarelto. The patient is seen today 03/04/2023 in follow-up on the regular medical floor. He is awake and alert in no acute distress. Breathing easier today compared to yesterday. He did undergo hemodialysis with another 3 L of fluid removed. He has less edema. Today's labs are pending. He is making urine. He remains on Solu-Medrol. Continued on Xarelto for anticoagulation. The patient is seen today 03/05/2023 in follow-up on the regular medical floor. He is currently resting comfortably in bed. Maintaining O2 saturations in the 90s on 5 L/m per nasal cannula. Currently receiving iron replacement. No worse tonya shortness of breath, cough or congestion. He did receive hemodialysis again yesterday with 3 L ultrafiltration. As for ultrafiltration again today per nephrology. Plan is for permacath placement and removal of the femoral catheter tomorrow. White count 9.9. Hemoglobin 7.7. Sodium 131. Potassium 4.6. Bicarb 27. BUN 33. Creatinine 3.16. The patient is seen today 03/06/2023 in follow-up on the regular medical floor. He is awake and alert in no acute distress. Feeling better today compared to yesterday. Requiring 6-7 liters high flow nasal cannula with O2 saturations in the mid to upper 90s. Follow-up chest x-ray shows similar findings with bilateral pleural effusions right greater than left. He is continuing to receive daily dialysis for ultrafiltration. Plan is for permacath placement today. Blood sugar 193. The patient is seen today 03/07/2023 in follow-up on the regular medical floor. He sitting up in bed. Awake and alert in no acute distress. He continues to maintain good O2 saturations in the mid to upper 90s on 6 L high flow nasal cannula. He did undergo a right jugular dialysis catheter placement. Left femoral temporary catheter was removed. His urine output has picked up with 750 ML's overnight. He did receive ultrafiltration. He is currently in a -2 L balance. Chest x-ray continues to show patchy basilar infiltrates right greater than left. Blood sugar 111. The patient is seen today 03/08/2023 in follow-up on the regular medical floor. He is currently sitting up in a chair. Awake and alert in no acute distress. Breathing a bit easier today compared to yesterday. Maintaining good O2 saturations in the 90s on 4 L/m per nasal cannula. Afebrile. Hemodynamically stable. He did receive hemodialysis yesterday with 3.8 L removed. Currently in a -1.2 L balance. He is making good urine. White count 10.4. Hemoglobin 9.1. Platelets 302. 33. Potassium 3.9. Bicarb 31. BUN 34. Creatinine 2.70. Glucose 124. The patient is seen today 03/09/2023 in follow-up on the regular medical floor. He is currently resting comfortably in bed. Awake and alert in no acute distress. Maintaining good O2 saturations in the high 90s on 5 L high flow nasal cannula. Afebrile. Hemodynamically stable. X-ray shows stable bilateral pleural effusions. It is for hemodialysis today. Continued on torsemide. Anticoagulated with Xarelto. The patient is seen today 03/10/2023 in follow-up on the regular medical floor. He is resting in bed. Awake and alert in no acute distress. He's been afebrile. Hemodynamically stable. He did undergo hemodialysis yesterday with another 2.9 L of fluid removed. He is currently on 6 L high flow nasal cannula. Normal saline at KVO. Blood glucose 104. He remains on Xarelto for anticoagulation. Continued on oral diuretics. Early in -3.6 L balance. Making good urine. Objective - Vital Signs Vital signs: Vital Signs Temp 98.1 F 03/10/23 07:15 Pulse 72 03/10/23 07:15 Resp 20 03/10/23 07:15 BP 93/56 03/10/23 07:15 Pulse Ox 99 03/10/23 07:15 FiO2 100 02/27/23 08:19 Intake & Output 03/09/23 03/10/23 03/10/23 18:59 06:59 18:59 Intake Total 720 500 Output Total 1100 3750 Balance -380 -3250 Weight 122.5 kg 120.5 kg Intake: Oral 720 Hemodialysis 500 Output: Urine 1100 850 Hemodialysis 2900 Other: Voiding Method Indwelling Catheter Indwelling Catheter Indwelling Catheter # Bowel Movements 1 ABP, PAP, CO, CI - Last Documented Arterial Blood Pressure 132/44 - Exam GENERAL EXAM: Alert, 67-year-old male, resting in bed, on 5 L nasal cannula, in no acute distress HEAD: Normocephalic. EYES: Normal reaction of pupils, equal size. NOSE: Clear with pink turbinates. THROAT: No erythema or exudates. NECK: No masses, no JVD. Right IJ permacath in place CHEST: No chest wall deformity. LUNGS: Equal air entry with bibasilar inspiratory crackles. Right greater than left. CVS: S1 and S2 normal with no audible murmur, irregular rhythm. No extra heart sounds ABDOMEN: Obese abdomen, no hepatosplenomegaly, active bowel sounds, no guarding or rigidity. SPINE: No scoliosis or deformity SKIN: No rashes. Bilateral buttocks stage II pressure injuries. Do not appear infected. There is generalized ecchymosis. CENTRAL NERVOUS SYSTEM: No focal deficits, tone is normal in all 4 extremities. EXTREMITIES: There is peripheral edema pitting edema of bilateral upper and lower extremities, +1. No clubbing, or cyanosis. Peripheral pulses are intact. - Labs CBC & Chem 7: 03/09/23 06:31 03/09/23 06:31 Labs: Abnormal Lab Results - Last 24 Hours (Table) 03/09/23 03/09/23 03/09/23 Range/Units 06:31 06:31 16:27 WBC 10.47 H (4.50-10.00) X 10*3/uL RBC 2.67 L (4.40-5.60) X 10*6/uL Hgb 8.3 L (13.0-17.0) d/dL Hct 27.5 L (39.6-50.0) % MCV 103.0 H (80.0-97.0) FL MCHC 30.2 L (32.0-37.0) d/dL RDW 15.9 H (11.5-14.5) % Neutrophils # 7.86 H (1.80-7.70) X 10*3/uL BUN 39.1 H (9.0-27.0) mg/dL Creatinine 3.2 H (0.6-1.5) mg/dL Est GFR (CKD-EPI) 20 L (>=60) Glucose 132 H (70-110) mg/dL POC Glucose (mg/dL) 271 H (70-110) mg/dL Calcium 7.3 L (8.7-10.3) mg/dL 03/09/23 Range/Units 20:39 WBC (4.50-10.00) X 10*3/uL RBC (4.40-5.60) X 10*6/uL Hgb (13.0-17.0) d/dL Hct (39.6-50.0) % MCV (80.0-97.0) FL MCHC (32.0-37.0) d/dL RDW (11.5-14.5) % Neutrophils # (1.80-7.70) X 10*3/uL BUN (9.0-27.0) mg/dL Creatinine (0.6-1.5) mg/dL Est GFR (CKD-EPI) (>=60) Glucose (70-110) mg/dL POC Glucose (mg/dL) 174 H (70-110) mg/dL Calcium (8.7-10.3) mg/dL Assessment and Plan Assessment: Acute hypoxemic respiratory failure secondary to exacerbation of diastolic congestive heart failure. Chest x-ray on arrival shows cardiomegaly with pulmonary vascular congestion and small bilateral pleural effusions. NT proBNP was elevated at 5360. Recent echocardiogram back in September, shows left ventricular hypertrophy, with a preserved left ventricular ejection fraction of 55-60%, and no valvular abnormalities reported. Chest x-ray continues to show bilateral pleural effusions right greater than left and currently is on 5 L of oxygen by nasal cannula. Continues with hemodialysis, remains on Demadex. Right IJ permacath placed. Bilateral pleural effusions, repeat chest x-ray shows small to moderate-sized pleural effusion bilaterally right greater than left. Encephalopathy, recovered Hypotension, recovered Bullous pemphigus Atrial fibrillation with controlled ventricular rate, anticoagulated on Xarelto, rate is controlled for now Acute kidney injury, possibly cardiorenal versus ATN. Creatinine today is at 2.7, no hydronephrosis, the patient is undergoing hemodialysis with ultrafiltration and the patient is also on torsemide Hyperkalemia, improved with hemodialysis. The patient also received medical management for hyperkalemia and his potassium level was refractory and as such required dialysis. The patient has multiple sessions of hemodialysis in the potassium level is normalized. Anemia, no reported acute blood loss. Mildly macrocytic Hypoalbuminemia and gross anasarca Pressure injuries, stage II, on bilateral buttocks Hyperlipidemia BPH Obesity, with a BMI of 40 kg/m Plan: The patient was seen and evaluated Medications reviewed Titrate the FiO2 as tolerated Cleared for discharge from the pulmonary standpoint Encouraged to keep his hemodialysis treatments as scheduled I have personally seen and examined the patient, performed the documentation and the assessment and plan as written. Number of minutes spent on the visit: 10.
[2023-03-10 12:00] LABS: Glucose,Whole Blood 101 mg/dL (70-110)
--- NOTE | 2023-03-10 13:25 | P.PN ---
Subjective Patient is seen for follow-up for acute kidney injury and hyperkalemia. Patient is currently maintained on hemodialysis. Urine output has improved but he remains significantly volume overloaded. Tolerated dialysis well with UF of 2.9 L on 03/09/20 Scheduled for hemodialysis in a.m. Objective - Vital Signs Vital signs: Vital Signs Temp 98.1 F 03/10/23 07:15 Pulse 72 03/10/23 07:15 Resp 20 03/10/23 07:15 BP 93/56 03/10/23 07:15 Pulse Ox 97 03/10/23 12:39 FiO2 100 02/27/23 08:19 Intake & Output 03/09/23 03/10/23 03/10/23 18:59 06:59 18:59 Intake Total 720 500 Output Total 1100 3750 Balance -380 -3250 Weight 122.5 kg 120.5 kg Intake: Oral 720 Hemodialysis 500 Output: Urine 1100 850 Hemodialysis 2900 Other: Voiding Method Indwelling Catheter Indwelling Catheter Indwelling Catheter # Bowel Movements 1 ABP, PAP, CO, CI - Last Documented Arterial Blood Pressure 132/44 - Exam Patient is awake, comfortable, no acute distress, mentation has improved Examination of the heart S1 and S2 Examination lungs decreased breath sounds at the bases basal crackles are heard. Abdomen is soft distended obese nontender Examination lower extremity shows edema 2+ bilaterally with chronic skin changes [employer] exam grossly intact - Labs CBC & Chem 7: 03/09/23 06:31 03/09/23 06:31 Labs: Abnormal Lab Results - Last 24 Hours (Table) 03/09/23 03/09/23 03/09/23 Range/Units 06:31 06:31 16:27 WBC 10.47 H (4.50-10.00) X 10*3/uL RBC 2.67 L (4.40-5.60) X 10*6/uL Hgb 8.3 L (13.0-17.0) d/dL Hct 27.5 L (39.6-50.0) % MCV 103.0 H (80.0-97.0) FL MCHC 30.2 L (32.0-37.0) d/dL RDW 15.9 H (11.5-14.5) % Neutrophils # 7.86 H (1.80-7.70) X 10*3/uL BUN 39.1 H (9.0-27.0) mg/dL Creatinine 3.2 H (0.6-1.5) mg/dL Est GFR (CKD-EPI) 20 L (>=60) Glucose 132 H (70-110) mg/dL POC Glucose (mg/dL) 271 H (70-110) mg/dL Calcium 7.3 L (8.7-10.3) mg/dL 03/09/23 Range/Units 20:39 WBC (4.50-10.00) X 10*3/uL RBC (4.40-5.60) X 10*6/uL Hgb (13.0-17.0) d/dL Hct (39.6-50.0) % MCV (80.0-97.0) FL MCHC (32.0-37.0) d/dL RDW (11.5-14.5) % Neutrophils # (1.80-7.70) X 10*3/uL BUN (9.0-27.0) mg/dL Creatinine (0.6-1.5) mg/dL Est GFR (CKD-EPI) (>=60) Glucose (70-110) mg/dL POC Glucose (mg/dL) 174 H (70-110) mg/dL Calcium (8.7-10.3) mg/dL Assessment and Plan Assessment: 1. Acute kidney injury, non-oliguric ATN secondary to hypotension. Started on hemodialysis on 02/25/2023. UA shows 3+ protein and large blood. Urine output has improved but patient remains on dialysis due to significant volume overload. 2. Acute hyperkalemia associated with acute kidney injury and use of LATONIA inhibitor's in the setting of hypotension. Resolved 3. Volume overload, maintained on Demadex and receiving hemodialysis. 4. Acute diastolic CHF. Ejection fraction was 55-60% on echocardiogram in September 2022. 5. Hypotension on initial admission currently improved 6. Chronic A. fib with controlled ventricular response maintained on xarelto 7. Acute hypoxic respiratory failure secondary to CHF and volume overload. Improved 8. 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 Left kidney nodule, to be monitored as outpatient Plan: Continue with torsemide Repeat hemodialysis in a.m. Patient will continue with dialysis as outpatient
--- NOTE | 2023-03-10 15:21 | P.PN ---
Subjective Progress Note Date: 03/10/23 Patient is a pleasant 67-year-old male with a history of diastolic dysfunction normal ejection fraction the past came in with anasarca fluid overload and shortness of breath has been going on for about 2 weeks. Patient has significant anasarca involving the entire abdomen bilateral lower extremity is 4 + pitting pedal edema and edema of the bilateral upper extremity is. Patient has a baseline creatinine of around 1.30-1.5 present creatinine is 2.3 2. Patient is hypotensive facet of troponin is negative without any significant EKG changes. Patient does have history of atrial fibrillation presently rate controlled on atenolol which is being held at this time because of hypotension patient also has serum potassium of around 6.8 presently patient was given IV insulin and calcium gluconate. Patient is presently on norepinephrine drip, Lasix drip. Liver enzymes are within normal limits. Patient doesn't have any leukocytosis. Patient doesn't have any fever chills denied any cough with the significant sputum production. 02/26/2023 Patient is seen and evaluated in follow-up this morning in the ICU with multiple medical consultations following. Patient with continued hyperkalemia maintained on Lasix drip with continued hypotension requiring emergent dialysis catheter and receiving dialysis currently. Patient is also maintained on a nonrebreather for continued shortness of breath. Patient is very lethargic although arousable but fatigues very easily. Urine output has improved slightly. at bedside with questions and concerns were answered. Patient is currently afebrile continues with shortness of breath denies chest pain and is requiring some pressor support. Kidney functions as well as potassium is improved since dialysis. Overall prognosis is extremely guarded. 02/27/2023 Patient is seen in follow-up continues to be in the ICU currently receiving hemodialysis and tolerating. Continues on low-dose Levophed which is currently being weaned. Continues on Lasix drip at 10 mL's per hour with some improvement in urine output. Patient was on 15 L high flow this morning along with nasal cannula and has titrated down to 8 L high flow and recommended weaning FiO2 as tolerated. Plan is for hemodialysis daily for now and will follow-up with labs. Kidney functions are improving and BUN is 37 with a creatinine of 1.8. Hemoglobin currently stable at 8.0 most likely anemia of chronic disease. Patient is afebrile report some improvement in his shortness of breath although continues to be short of breath. Patient extremely weak and does have history of chronic back pain and was scheduled to have outpatient procedure. Patient with significant upper and lower extremity edema pitting with minimal improvement. 02/28/2023 Patient remains in intensive care unit and continues on hemodialysis currently undergoing this AM at bedside. Noted that he has chronic low back at baseline and he mostly transfers with a walker at baseline he was scheduled for a lumbar injection outpatient at [facility] but was not cleared by cardiology to go off his medications. PT/OT will be consulted. He has adequte urine output. He remains no lasix gtt. He has been weaned off vasopressors and blood pressure is stable. Patient received albumin. Chest xray from this AM has not been resulted yet. Sodium is 136, potassium 4.2, BUN 30, creatinine 1.87 which is stable. 03/01/2023 Patient has been moved out of the intensive care unit and is currently evaluated on the medical floor. He does have a sacral stage II pressure injury and this is causing him some discomfort. He is being repositioned and would recommend doing this every 2-3 hours. He is on a Lasix drip at 10 mL's per hour he has a urine output of 4.9 L in the last 24 hours. He continues with significant peripheral edema he has +2 pitting up to his thighs and scrotum as well as his upper extremities. His creatinine is increased up to 2.24 today. Vitamin D level found to be low at 10.4 and patient is started on oral supplementation. 03/02/2023 Patient is seen and evaluated in follow-up today awaiting to receive dialysis today. Patient being followed by nephrology and will discuss further about outpatient dialysis as patient continues with temporary catheter. Patient remains on Lasix drip and diuresis and well and continues with significant overload. Patient with bullous pemphigus and was evaluated by wound care recommending wound care as patient also has decubitus ulcers. Will consult infectious disease and appreciate input and recommendations regarding concerns for possible underlying infection of the left forearm. Will add some IV steroids as well and monitor and recommend Accu-Cheks before meals and at bedtime and will use sliding scale as needed. Patient is currently afebrile with no reports of worsening shortness of breath or chest pains. Patient is currently maintaining good oxygen saturations above 95% on 4-6 L via nasal cannula. 03/03/2023 Patient is seen and evaluated today with multiple consultations following. Hematology/Oncology consulted and has ordered 24-hour urine along with additional testing which is pending. Patient is maintained on Lasix 80 mg IV push twice daily and metolazone being ordered. Patient continues with significant volume overload with no plans of dialysis today. Patient continues with temporary dialysis catheter and will need to discuss further with nephrology if patient will require permanent dialysis catheter and outpatient hemodialysis to be arranged. Patient with some weakness and recommend physical therapy evaluation daily. Patient also continued on local wound care of the buttocks area and has history of bullous pemphigus and infectious disease consulted. Patient started on low-dose IV steroids and will continue with Accu- Cheks before meals and at bedtime and monitor for some improvement. Hemoglobin is stable at 8.7 and platelets are 173. Sodium is 137 with a potassium of 5.2, BUN is 32 with a creatinine of 2.95, magnesium is 2.1. Patient is currently afebrile with no reports of chest pain or worsening shortness of breath. Patient is diuresing and currently maintained on 5 L via nasal cannula with an oxygen saturation of 98%. Recommend weaning FiO2 as tolerated as patient does not normally wear oxygen outpatient. 03/04/2023 Patient is seen and evaluated in follow-up today currently awaiting labs which are pending at this time. Per nursing staff no further reports of blood noted in the urine and will resume anticoagulant. Nephrology following awaiting follow-up labs and awaiting to see if hemodialysis is to be done today. Patient reports to feeling better currently maintained on 5 L and denies worsening shortness of breath. Patient is also continued on IV steroids and bullous pemp higus lesions appear to be somewhat improved. We'll continue for another day along with sliding scale and Accu-Cheks and titrate down on the dose of steroids. Continue with local wound care. Patient also being followed by physical therapy and possible discussion of ECF with case management following. Urology has been consulted for the hematuria although hematuria has resolved and will continue with indwelling Barkley catheter for intake and output monitoring and monitor for any further bleeding. 03/05/2023 Patient is seen and evaluated this morning maintained on 5-6 L of oxygen via nasal cannula with oxygen saturations above 90%. Multiple medical consultations including vascular surgery consulted again as patient will be requiring permanent catheter placement for hemodialysis outpatient. Patient to receive ultrafiltration today as well as tomorrow. Plan is for permacath placement tomorrow and will hold anticoagulation for now. Hemoglobin is stable at 7.7, sodium is 131 with a potassium of 4.6, BUN is 33 and creatinine is 3.16. Blood sugars remain elevated at times and will continue current regimen. Patient is receiving IV steroids and will discontinue tomorrow. Transition to oral steroid taper. Patient is afebrile with no reports of chest pain or worsening shortness of breath. Patient tolerating diet and will be nothing by mouth at midnight for dialysis catheter placement. Hematology/oncology following as well awaiting labs that were sent out. Per case management plan is for home with home care and arranging for outpatient dialysis. Recommend physical therapy daily. 03/06/2023 Patient is seen and evaluated in follow-up this morning currently scheduled to undergo dialysis catheter placement with Dr. Cano today. Anticoagulation currently on hold and will resume post. Patient maintained on IV steroids for pemphigus showing some improvement and will titrate and start oral steroids 20 mg daily for the next 2 days and then 10 mg daily for 2 days then discontinue. Recommend continue monitoring Accu-Cheks and continue sliding scale. Patient is currently afebrile reports improvements in shortness of breath although continues to be extremely dyspneic with minimal exertion. Patient is continued on 6-7 L nasal cannula high flow. Patient was not wearing oxygen prior to admission. Patient will need oxygen on discharge to manage CHF. Working t owards at least 4-5 L nasal cannula with tolerance. Patient is extremely weak with physical therapy evaluating and plans are for home with home care. Case management following and arranging for outpatient dialysis. 03/09/2023 Patient is seen in follow-up today with multiple medical consultations following. Patient has received permanent dialysis catheter on the chest and scheduled for hemodialysis today. Case management following and has arranged for outpatient dialysis to occur on Thursday/Thursday/Thursday with next session being Thursday at 6 AM. Patient with significant weakness reports has been up sitting in the chair although has not been up and walking and plan is to return home with . Will have physical therapy evaluate the patient on walking. Patient had been refusing to go to rehab. Patient continues on 5 L oxygen via nasal cannula and will require oxygen on discharge to manage CHF. Chest x-ray shows stable bilateral pleural effusions and again is scheduled for dialysis today. Will ask physical therapy to evaluate the patient either later this afternoon or early a.m. as patient reports he is refusing to work with them if receiving dialysis today. Patient is afebrile with no reports of chest pain or worsening shortness of breath. Patient reports to tolerating diet with no reports of nausea or vomiting noted. 03/10/2023 Patient is seen in follow-up today with multiple medical consultations following maintained on 5-6 L via nasal cannula. Patient reports shortness of breath although no worsening and reports is variable once he feels he is a little exerted he becomes more dyspneic but recovers on nasal cannula. Patient will require oxygen on discharge. Pulmonary following and has cleared the patient for discharge. Patient to receive dialysis in the morning and plan for discharge planning thereafter as patient reports will be going home with with home care. Patient is afebrile with no reports of chest pain or palpitations. Patient does have permanent dialysis catheter placed and arranged for outpatient dialysis on Thursday/Thursday/Thursday. Discharge planning in process for the next 24 hours. Review of systems: Constitutional: no reports of fatigue, no fever, or chills Cardiovascular: No reports of chest pain or palpitations Respiratory: reports some improvement in shortness of breath GI: No reports of nausea, vomiting, or diarrhea : No reports of dysuria or retention Neurovascular: reports of generalized weakness All medications have been reviewed PHYSICAL EXAMINATION: GENERAL: The patient is awake, alert and oriented x3. Ill-appearing, elderly appearing, morbidly Obese HEENT: Pupils are round and equally reacting to light. EOMI. No scleral icterus. No conjunctival pallor. Normocephalic, atraumatic. No pharyngeal erythema. No thyromegaly. CARDIOVASCULAR: S1 and S2 muffled PULMONARY: Diminished breath sounds bilaterally with some coarse rhonchi noted, faint crackles at the bases noted ABDOMEN: Soft, nontender, nondistended, normoactive bowel sounds. No palpable organomegaly. MUSCULOSKELETAL: No joint swelling or deformity. EXTREMITIES: No cyanosis, clubbing, anasarca, pitting pedal edema showing some improvement. Some improvement in edema of upper and lower extremities NEUROLOGICAL: Gross neurological examination did not reveal any focal deficits. SKIN: Stage II pressure ulcers, pale Assessment: -Acute on chronic diastolic congestive heart failure -Cardiogenic shock status post pressor support, resolved -Acute hypoxic respiratory failure: Secondary to heart failure exacerbation. -Atrial fibrillation, paroxysmal patient is rate controlled at this time -Right pleural effusion -Hematuria, most likely related to trauma from indwelling Barkley catheter, resolved -Acute kidney injury with acute tubular necrosis secondary to hypotension and cardiorenal syndrome, improving requiring emergent dialysis, Status post permanent dialysis catheter placement 03/06/2023 -Chronic kidney disease probably secondary to nephrosclerosis -Hyperkalemia secondary to acute renal failure, requiring dialysis, improving -Macrocytic anemia -Pressures ulcers stage II bilateral buttocks, present on admission -Morbid obesity with a BMI of 40.9 -possible sleep apnea, will need outpatient sleep study -hyperlipidemia history -Benign prostatic hypertrophy, maintained on tamsulosin -Bullous pemphigus has a wound in the left lower extremity, continue local wound care -Vitamin D deficiency -Chronic low back pain -GI prophylaxis -DVT prophylaxis: On anticoagulation as mentioned above -Full code Plan: Patient continues to be on Demadex with nephrology following and plan is to continue dialysis for ultrafiltration. Permanent dialysis catheter placed and being arranged for outpatient for Thursday/Thursday/Thursday Patient receive dialysis tomorrow and planning for discharge Recommend PT/OT therapy daily and plan is for home with home care and his spouse Continue with renal diet and strict intake and output. Wean FiO2 as tolerated currently maintained on 5 L. Patient does not wear oxygen outpatient. Patient will require oxygen on discharge of 5 L via nasal cannula to manage CHF. Hematology/Oncology following per nephrology with abnormal lab values and will need outpatient follow-up Recommend turning the patient every 2-3 hours and frequent offloading of the sacral area with continued wound care Due to multiple complex medical issues, prognosis is extremely guarded Plan is for discharge in the next 24 hours The impression and plan of care has been dictated by Sandra Ayala Nurse Practitioner as directed. Dr. Cleopatra MD I have performed a history and examination and MDM of this patient, discussed the same with the dictator, and agree with the dictator's assessment and plan as written ,documented as a scribe. Based on total visit time, I have performed more than 50% of the visit. Objective - Vital Signs Vital signs: Vital Signs Temp 98.1 F 03/10/23 07:15 Pulse 72 03/10/23 07:15 Resp 20 08/15/23 07:15 BP 93/56 03/10/23 07:15 Pulse Ox 99 03/10/23 07:15 FiO2 100 02/27/23 08:19 Intake & Output 03/09/23 03/10/23 03/10/23 18:59 06:59 18:59 Intake Total 720 500 Output Total 1100 3750 Balance -380 -3250 Weight 122.5 kg 120.5 kg Intake: Oral 720 Hemodialysis 500 Output: Urine 1100 850 Hemodialysis 2900 Other: Voiding Method Indwelling Catheter Indwelling Catheter # Bowel Movements 1 ABP, PAP, CO, CI - Last Documented Arterial Blood Pressure 132/44 - Labs CBC & Chem 7: 03/09/23 06:31 03/09/23 06:31 Labs: Abnormal Lab Results - Last 24 Hours (Table) 03/09/23 03/09/23 03/09/23 Range/Units 06:31 06:31 11:34 WBC 10.47 H (4.50-10.00) X 10*3/uL RBC 2.67 L (4.40-5.60) X 10*6/uL Hgb 8.3 L (13.0-17.0) d/dL Hct 27.5 L (39.6-50.0) % MCV 103.0 H (80.0-97.0) FL MCHC 30.2 L (32.0-37.0) d/dL RDW 15.9 H (11.5-14.5) % Neutrophils # 7.86 H (1.80-7.70) X 10*3/uL BUN 39.1 H (9.0-27.0) mg/dL Creatinine 3.2 H (0.6-1.5) mg/dL Est GFR (CKD-EPI) 20 L (>=60) Glucose 132 H (70-110) mg/dL POC Glucose (mg/dL) 251 H (70-110) mg/dL Calcium 7.3 L (8.7-10.3) mg/dL 03/09/23 03/09/23 Range/Units 16:27 20:39 WBC (4.50-10.00) X 10*3/uL RBC (4.40-5.60) X 10*6/uL Hgb (13.0-17.0) d/dL Hct (39.6-50.0) % MCV (80.0-97.0) FL MCHC (32.0-37.0) d/dL RDW (11.5-14.5) % Neutrophils # (1.80-7.70) X 10*3/uL BUN (9.0-27.0) mg/dL Creatinine (0.6-1.5) mg/dL Est GFR (CKD-EPI) (>=60) Glucose (70-110) mg/dL POC Glucose (mg/dL) 271 H 174 H (70-110) mg/dL Calcium (8.7-10.3) mg/dL
[2023-03-10 16:59] LABS: Glucose,Whole Blood 269 mg/dL (70-110)
[2023-03-10 20:54] LABS: Glucose,Whole Blood 180 mg/dL (70-110)
[2023-03-11] MEDS: HYDROcodone/APAP 5-325MG 1 EACH TAB PO PRN ×4 (05:01→20:14)
[2023-03-11 06:13] LABS: Glucose,Whole Blood 114 mg/dL (70-110)
[2023-03-11] MEDS: INSULIN ASPART (NovoLOG) 100 UNIT/ML VIAL SQ SCH ×4 (06:14→22:20)
[2023-03-11] MEDS: MIDODRINE 5 MG TAB PO SCH ×3 (07:02→17:35)
[2023-03-11] MEDS: ASPIRIN 81 MG PO SCH (08:39)
[2023-03-11] MEDS: RIVAROXABAN 20 MG TAB PO SCH (08:39)
[2023-03-11] MEDS: TORSEMIDE 20 MG TAB PO SCH (08:39)
[2023-03-11] MEDS: atenoloL 25 MG TAB PO SCH ×2 (08:39→20:14)
[2023-03-11] MEDS: ATORVASTATIN 40 MG TAB PO SCH (08:39)
[2023-03-11] MEDS: lisinopriL 20 MG TAB PO SCH (08:39)
[2023-03-11] MEDS: CHOLECALCIFEROL 25 MCG (1000 IU) TABLET PO SCH (08:39)
[2023-03-11] MEDS: THIAMINE 100 MG TAB PO SCH (08:39)
[2023-03-11] MEDS: PANTOPRAZOLE 40 MG/10 ML VIAL IVP SCH (08:39)
[2023-03-11] MEDS: HYDROPHILIC CREAM 180 GM TUBE TOPICAL SCH (08:40)
[2023-03-11] MEDS: TAMSULOSIN 0.4 MG CAP.ER.24H PO SCH (10:41)
--- NOTE | 2023-03-11 11:05 | P.PN ---
Subjective Progress Note Date: 03/11/23 I am seeing this patient in new consultation today 02/25/2023 for suspected acute exacerbation of diastolic congestive heart failure. Patient is a 67-year-old white male with past medical history significant for atrial fibrillation, hyperlipidemia, hypertension, diabetes mellitus type 2, DVT, BPH, bullous pemphigoid and chronic back pain. 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 He has been having shortness of breath that has progressively worsened over the last couple weeks. It is especially worse on exertion, and states he can only walk approximately 5 feet. He sleeps in a recliner at home. He's had progressively worsening generalized swelling. Denies any chest pain, heart palpitations, syncope. Chest x-ray on arrival showed cardiomegaly with pulmonary vascular congestion and bilateral pleural effusions. Patient is currently sitting up in bed, on 4 L/m nasal cannula, and is fairly comfortable. He does have gross anasarca. He is pale. Blood pressure is borderline. He has been started on midodrine, and may have to be transferred to the intensive care unit for norepinephrine infusion. Last blood pressure was 90/50. ECG shows atrial fibrillation with controlled ventricular rate. Currently receiving Lasix 40 mg 3 times a day. Barkley catheter has been inserted for accurate intake and output. Patient does have a component of acute kidney injury. He was hyperkalemic, with a potassium of 6.5 on arrival, and was given 10 units of regular insulin, 1 amp D50 W, 1 amp sodium bicarb, and Lokelma. Potassium level did come down to 5.8. BMP on arrival shows sodium 138, potassium down to 5.8, chloride of 112, serum bicarbonate 24, BUN 62, creatinine 2.17, glucose 84. CBC on arrival shows a WBC count of 5.7, hemoglobin 9.5, hematocrit 30.1, platelets 230. He is anemic, and his Xarelto dose was reportedly increased for A. fib prophylaxis back in September 2022. He was found to have new onset A. fib. He denies any bloody bowel movements or melena. Echocardiogram done at that time showed a normal ejection fraction of 55-60% without any valvular abnormality. NT proBNP was elevated at 5360. As stated above, patient has been hypotensive, and may require transfer to the intensive care unit on Levophed if no improvement with midodrine. On today's evaluation of of 02/26/2023, the patient is being seen in follow-up in the intensive care unit. He had a very complicated course yesterday. Note that he continued to have issues with hyperkalemia that was unresponsive to medical treatment. The patient also continued to have difficulties and hypotension, massive fluid overload and low urine output. He was not responding adequately to the diuretics. He was on high-dose pressors and his norepinephrine at a certain stage was running as high as 0.45 mcg/kg/m. As such, it was decided to proceed with hemodialysis. His control his potassium. No ultrafiltration was done. Dialysis was completed a potassium level improved and it dropped down to 4.9 and this morning is up to 5.1. Noted the patient was having episodes of sinus bradycardia yesterday due to his hyperkalemia. His cur rent cardiac rhythm is sinus. Rate is 65. His norepinephrine has been weaned down to 0.14 mcg/kg/m. He remains on a Lasix drip and is producing somewhere between 40-50 mL of urine output. He continues to have massive fluid overload and fluid weeping from the skin surface of his lower extremities. BUN is 44 with a creatinine of 1.9 and a sodium level is at 139 and a potassium level of 5.1. The patient was at 8.4 with a hemoglobin of 8.7. His ultrasound of the abdomen and the kidneys were done. The patient had no major abnormalities. His common bile duct measured 9 mm in size. No evidence of any hydronephrosis. His echocardiogram was also repeated yesterday and the patient was found to have left ventricular ejection fraction of 55-60%. He had mild RV dilatation. Mild pulmonary hypertension. No significant valvular abnormalities. The patient had a repeat chest x-ray today that showed bilateral pleural effusions and significant volume overload. The patient is currently on 100% nonrebreather facemask. Is arousable and is communicating and the is at the bedside. He does have a dialysis catheter in his left femoral vein. He also has a triple- lumen cath in his left subclavian vein. On today's evaluation of 02/27/2023, the patient is alert and awake and communicating. There is no significant improvement in his neurologic status since yesterday. In same time, there is improvement in volume status. The patient underwent already 2 sessions of hemodialysis and yesterday he received some ultrafiltration. The patient remains on IV albumin 12.5 g, 25%, every 8 hours and the patient is also on Lasix 10 mg an hour. Urine output is in order of 100 mL an hour. The patient has a BUN of 37 with a creatinine of 1.8. Potassium levels down to 4.4. The white cell cause of 9.1 with a hemoglobin of 8.0. His cardiac rhythm is still in nature fibrillation. His oxygenation is stable and the patient is currently on nasal cannula at 15 L. No major signs of any respiratory distress at this point. Hemoglobin is at 8.0. At the same time, the patient is on low-dose pressors and the patient is weaned off and his norepinephrine. norepinephrine is running at 0.08 mcg/kg/m. he remains on anticoagulation and he is on Xarelto . 02/28/2023, the patient is doing extremely well. He is on 4 L of oxygen by nasal cannula. He remains on Lasix drip at 10 mg an hour. Urine output is adequate. There is improvement in the edema as the patient is undergoing daily sessions of hemodialysis. He has already undergone 3 sessions of hemodialysis the last being yesterday. He is currently on 4 L O2. His off pressors. The patient's creatinine is down to 1.8 with a BUN of 30. Sodium level is at 136. White cell count of 8.0 with a hemoglobin of 7.7. Repeat chest x-ray was done this morning and shows moderate-sized bilateral pleural effusion and as such the patient continues to have some excess volume his chest. Nephrology is on the case. Pressors are off. Cardiac rhythm is atrial fibrillation. Remains on anticoagulation. 03/01/2023, patient was transferred also the ICU yesterday and the patient is currently being seen on a medical floor. He is doing well. No specific complaints. No chest pain. He continues to be on a Lasix drip at 10 mg an hour. His left is no hemodialysis was done yesterday. He is on no pressors for now. His edema is also improving although he does have some residual edema lower extremity bilaterally. He is on no pressors. Is on anticoagulation. No altered mentation. No chest pain. No other new complaints otherwise for now. The patient is seen today 03/02/2023 in follow-up on the regular medical floor. He is currently sitting up in bed. Awake and alert in no acute distress. He is maintaining O2 saturations in the 90s on 4 L/m per nasal cannula. He is continued on a Lasix drip at 10 mg per hour. The plan is for hemodialysis today. Urine output currently at 1300 ML's in the past 24 hours. Sodium 140. Potassium 5.1. Bicarb 31. BUN 32. Creatinine 2.54. Glucose 109. He is continued on midodrine. Pressure stable. The patient is seen today 03/03/2023 in follow-up on the regular medical floor. He is currently sitting up in bed. Awake and alert in no acute distress. Maintaining O2 saturations in the 90s on 5 L/m per nasal cannula. Continues on a Lasix drip at 10 mg per hour. Currently in a -2.1 L balance. White count 11.2. Hemoglobin 8.7. Platelets 173. Sodium 137. Potassium 5.2. Bicarb 28. BUN 32. Creatinine 2.95. Glucose 160. He is continued on Xarelto. The patient is seen today 03/04/2023 in follow-up on the regular medical floor. He is awake and alert in no acute distress. Breathing easier today compared to yesterday. He did undergo hemodialysis with another 3 L of fluid removed. He has less edema. Today's labs are pending. He is making urine. He remains on Solu-Medrol. Continued on Xarelto for anticoagulation. The patient is seen today 03/05/2023 in follow-up on the regular medical floor. He is currently resting comfortably in bed. Maintaining O2 saturations in the 90s on 5 L/m per nasal cannula. Currently receiving iron replacement. No worse tonya shortness of breath, cough or congestion. He did receive hemodialysis again yesterday with 3 L ultrafiltration. As for ultrafiltration again today per nephrology. Plan is for permacath placement and removal of the femoral catheter tomorrow. White count 9.9. Hemoglobin 7.7. Sodium 131. Potassium 4.6. Bicarb 27. BUN 33. Creatinine 3.16. The patient is seen today 03/06/2023 in follow-up on the regular medical floor. He is awake and alert in no acute distress. Feeling better today compared to yesterday. Requiring 6-7 liters high flow nasal cannula with O2 saturations in the mid to upper 90s. Follow-up chest x-ray shows similar findings with bilateral pleural effusions right greater than left. He is continuing to receive daily dialysis for ultrafiltration. Plan is for permacath placement today. Blood sugar 193. The patient is seen today 03/07/2023 in follow-up on the regular medical floor. He sitting up in bed. Awake and alert in no acute distress. He continues to maintain good O2 saturations in the mid to upper 90s on 6 L high flow nasal cannula. He did undergo a right jugular dialysis catheter placement. Left femoral temporary catheter was removed. His urine output has picked up with 750 ML's overnight. He did receive ultrafiltration. He is currently in a -2 L balance. Chest x-ray continues to show patchy basilar infiltrates right greater than left. Blood sugar 111. The patient is seen today 03/08/2023 in follow-up on the regular medical floor. He is currently sitting up in a chair. Awake and alert in no acute distress. Breathing a bit easier today compared to yesterday. Maintaining good O2 saturations in the 90s on 4 L/m per nasal cannula. Afebrile. Hemodynamically stable. He did receive hemodialysis yesterday with 3.8 L removed. Currently in a -1.2 L balance. He is making good urine. White count 10.4. Hemoglobin 9.1. Platelets 302. 33. Potassium 3.9. Bicarb 31. BUN 34. Creatinine 2.70. Glucose 124. The patient is seen today 03/09/2023 in follow-up on the regular medical floor. He is currently resting comfortably in bed. Awake and alert in no acute distress. Maintaining good O2 saturations in the high 90s on 5 L high flow nasal cannula. Afebrile. Hemodynamically stable. X-ray shows stable bilateral pleural effusions. It is for hemodialysis today. Continued on torsemide. Anticoagulated with Xarelto. The patient is seen today 03/10/2023 in follow-up on the regular medical floor. He is resting in bed. Awake and alert in no acute distress. He's been afebrile. Hemodynamically stable. He did undergo hemodialysis yesterday with another 2.9 L of fluid removed. He is currently on 6 L high flow nasal cannula. Normal saline at KVO. Blood glucose 104. He remains on Xarelto for anticoagulation. Continued on oral diuretics. Early in -3.6 L balance. Making good urine. The patient is seen today 03/11/2023 in follow-up on the regular medical floor. Remains awake and alert in no acute distress. Sitting up in bed. Maintaining O2 saturations on 3 L/m per nasal cannula. Normal saline at KVO. Continued on Xarelto for anticoagulation. Remains on oral diuretics. To be on a Thursday hemodialysis schedule now. Objective - Vital Signs Vital signs: Vital Signs Temp 98.1 F 03/11/23 06:52 Pulse 76 03/11/23 10:30 Resp 16 03/11/23 06:52 BP 125/71 03/11/23 07:01 Pulse Ox 97 03/11/23 10:30 FiO2 100 02/27/23 08:19 Intake & Output 03/10/23 03/11/23 03/11/23 18:59 06:59 18:59 Intake Total 600 360 Output Total 300 400 Balance 300 -40 Weight 120.5 kg Intake: IV 120 0.9% @ KVO 120 Oral 600 240 Output: Urine 300 400 Other: Voiding Method Indwelling Catheter Indwelling Catheter Indwelling Catheter # Bowel Movements 1 ABP, PAP, CO, CI - Last Documented Arterial Blood Pressure 132/44 - Exam GENERAL EXAM: Alert, oriented 67-year-old male, resting in bed, on 3 L nasal cannula, in no acute distress HEAD: Normocephalic. EYES: Normal reaction of pupils, equal size. NOSE: Clear with pink turbinates. THROAT: No erythema or exudates. NECK: No masses, no JVD. Right IJ permacath in place CHEST: No chest wall deformity. LUNGS: Equal air entry with bibasilar inspiratory crackles. Right greater than left. CVS: S1 and S2 normal with no audible murmur, irregular rhythm. No extra heart sounds ABDOMEN: Obese abdomen, no hepatosplenomegaly, active bowel sounds, no guarding or rigidity. SPINE: No scoliosis or deformity SKIN: No rashes. Bilateral buttocks stage II pressure injuries. Do not appear infected. There is generalized ecchymosis. CENTRAL NERVOUS SYSTEM: No focal deficits, tone is normal in all 4 extremities. EXTREMITIES: There is peripheral edema pitting edema of bilateral upper and lower extremities, +1. No clubbing, or cyanosis. Peripheral pulses are intact. - Labs CBC & Chem 7: 03/09/23 06:31 03/09/23 06:31 Labs: Abnormal Lab Results - Last 24 Hours (Table) 03/10/23 03/10/23 03/11/23 Range/Units 16:57 20:52 06:12 POC Glucose (mg/dL) 269 H 180 H 114 H (70-110) mg/dL Assessment and Plan Assessment: Acute hypoxemic respiratory failure secondary to exacerbation of diastolic congestive heart failure. Chest x-ray on arrival shows cardiomegaly with pulmonary vascular congestion and small bilateral pleural effusions. NT proBNP was elevated at 5360. Recent echocardiogram back in September, shows left ventricular hypertrophy, with a preserved left ventricular ejection fraction of 55-60%, and no valvular abnormalities reported. Chest x-ray continues to show bilateral pleural effusions right greater than left and currently is on 3 L of oxygen by nasal cannula. Continues with hemodialysis, remains on Demadex. Right IJ permacath placed. Bilateral pleural effusions, repeat chest x-ray shows small to moderate-sized pleural effusion bilaterally right greater than left. Encephalopathy, recovered Hypotension, recovered Bullous pemphigus Atrial fibrillation with controlled ventricular rate, anticoagulated on Xarelto, rate is controlled for now Acute kidney injury, possibly cardiorenal versus ATN. Creatinine today is at 2.7, no hydronephrosis, the patient is undergoing hemodialysis with ultrafiltration and the patient is also on torsemide Hyperkalemia, improved with hemodialysis. The patient also received medical management for hyperkalemia and his potassium level was refractory and as such required dialysis. The patient has multiple sessions of hemodialysis in the potassium level is normalized. Anemia, no reported acute blood loss. Mildly macrocytic Hypoalbuminemia and gross anasarca Pressure injuries, stage II, on bilateral buttocks Hyperlipidemia BPH Obesity, with a BMI of 40 kg/m Plan: The patient was seen and evaluated Medications reviewed Stable and down to 3 L nasal cannula Cleared for discharge from the pulmonary standpoint Encouraged to keep his hemodialysis treatments as scheduled To be on a Thursday schedule with hemodialysis tomorrow 11:15 I have personally seen and examined the patient, performed the documentation and the assessment and plan as written. Number of minutes spent on the visit: 10.
[2023-03-11 11:38] LABS: Glucose,Whole Blood 155 mg/dL (70-110)
[2023-03-11] MEDS: DARBEPOETIN ALFA 40 MCG/0.4 ML SYRINGE SQ SCH (14:09)
--- NOTE | 2023-03-11 14:19 | P.PN ---
Subjective Patient is seen for follow-up for acute kidney injury and hyperkalemia. Patient is currently maintained on hemodialysis. Urine output has improved but he remains significantly volume overloaded and therefore dialysis dependent. Tolerated dialysis well with UF of 2.9 L on 03/09/23 Patient is seen on hemodialysis. Tolerating treatment well. Objective - Vital Signs Vital signs: Vital Signs Temp 98.2 F 03/11/23 13:04 Pulse 75 03/11/23 13:04 Resp 16 03/11/23 13:04 BP 129/68 03/11/23 13:04 Pulse Ox 95 03/11/23 13:04 FiO2 100 02/27/23 08:19 Intake & Output 03/10/23 03/11/23 03/11/23 18:59 06:59 18:59 Intake Total 600 360 Output Total 300 400 Balance 300 -40 Weight 120.5 kg Intake: IV 120 0.9% @ KVO 120 Oral 600 240 Output: Urine 300 400 Other: Voiding Method Indwelling Catheter Indwelling Catheter Indwelling Catheter # Bowel Movements 1 ABP, PAP, CO, CI - Last Documented Arterial Blood Pressure 132/44 - Exam Patient is awake, comfortable, no acute distress, mentation has improved Examination of the heart S1 and S2 Examination lungs decreased breath sounds at the bases basal crackles are heard. 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 Acute kidney injury, non-oliguric ATN secondary to hypotension. Started on hemodialysis on 02/25/2023. UA shows 3+ protein and large blood. Urine output has improved but patient remains on dialysis due to significant volume overload. 2. Acute hyperkalemia associated with acute kidney injury and use of LATONIA inhibitor's in the setting of hypotension. Resolved 3. Volume overload, maintained on Demadex and receiving hemodialysis. 4. Acute diastolic CHF. Ejection fraction was 55-60% on echocardiogram in September 2022. 5. Hypotension on initial admission currently improved 6. Chronic A. fib with controlled ventricular response maintained on xarelto 7. Acute hypoxic respiratory failure secondary to CHF and volume overload. Improved 8. 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 Left kidney nodule, to be monitored as outpatient Plan: Continue with torsemide Okay to discharge from nephrology standpoint Patient will continue with dialysis as outpatient on TTS schedule
[2023-03-11 17:15] LABS: Glucose,Whole Blood 177 mg/dL (70-110)
[2023-03-11 21:27] LABS: Glucose,Whole Blood 226 mg/dL (70-110)
[2023-03-12] MEDS: HYDROcodone/APAP 5-325MG 1 EACH TAB PO PRN ×2 (01:30→06:34)
[2023-03-12 02:33] VITALS: PULSE 72
[2023-03-12 06:19] LABS: Glucose,Whole Blood 115 mg/dL (70-110)
--- NOTE | 2023-03-12 06:24 | P.PN ---
Subjective Progress Note Date: 03/11/23 Patient is a pleasant 67-year-old male with a history of diastolic dysfunction normal ejection fraction the past came in with anasarca fluid overload and shortness of breath has been going on for about 2 weeks. Patient has significant anasarca involving the entire abdomen bilateral lower extremity is 4 + pitting pedal edema and edema of the bilateral upper extremity is. Patient has a baseline creatinine of around 1.30-1.5 present creatinine is 2.3 2. Patient is hypotensive facet of troponin is negative without any significant EKG changes. Patient does have history of atrial fibrillation presently rate controlled on atenolol which is being held at this time because of hypotension patient also has serum potassium of around 6.8 presently patient was given IV insulin and calcium gluconate. Patient is presently on norepinephrine drip, Lasix drip. Liver enzymes are within normal limits. Patient doesn't have any leukocytosis. Patient doesn't have any fever chills denied any cough with the significant sputum production. 02/26/2023 Patient is seen and evaluated in follow-up this morning in the ICU with multiple medical consultations following. Patient with continued hyperkalemia maintained on Lasix drip with continued hypotension requiring emergent dialysis catheter and receiving dialysis currently. Patient is also maintained on a nonrebreather for continued shortness of breath. Patient is very lethargic although arousable but fatigues very easily. Urine output has improved slightly. at bedside with questions and concerns were answered. Patient is currently afebrile continues with shortness of breath denies chest pain and is requiring some pressor support. Kidney functions as well as potassium is improved since dialysis. Overall prognosis is extremely guarded. 02/27/2023 Patient is seen in follow-up continues to be in the ICU currently receiving hemodialysis and tolerating. Continues on low-dose Levophed which is currently being weaned. Continues on Lasix drip at 10 mL's per hour with some improvement in urine output. Patient was on 15 L high flow this morning along with nasal cannula and has titrated down to 8 L high flow and recommended weaning FiO2 as tolerated. Plan is for hemodialysis daily for now and will follow-up with labs. Kidney functions are improving and BUN is 37 with a creatinine of 1.8. Hemoglobin currently stable at 8.0 most likely anemia of chronic disease. Patient is afebrile report some improvement in his shortness of breath although continues to be short of breath. Patient extremely weak and does have history of chronic back pain and was scheduled to have outpatient procedure. Patient with significant upper and lower extremity edema pitting with minimal improvement. 02/28/2023 Patient remains in intensive care unit and continues on hemodialysis currently undergoing this AM at bedside. Noted that he has chronic low back at baseline and he mostly transfers with a walker at baseline he was scheduled for a lumbar injection outpatient at [facility] but was not cleared by cardiology to go off his medications. PT/OT will be consulted. He has adequte urine output. He remains no lasix gtt. He has been weaned off vasopressors and blood pressure is stable. Patient received albumin. Chest xray from this AM has not been resulted yet. Sodium is 136, potassium 4.2, BUN 30, creatinine 1.87 which is stable. 03/01/2023 Patient has been moved out of the intensive care unit and is currently evaluated on the medical floor. He does have a sacral stage II pressure injury and this is causing him some discomfort. He is being repositioned and would recommend doing this every 2-3 hours. He is on a Lasix drip at 10 mL's per hour he has a urine output of 4.9 L in the last 24 hours. He continues with significant peripheral edema he has +2 pitting up to his thighs and scrotum as well as his upper extremities. His creatinine is increased up to 2.24 today. Vitamin D level found to be low at 10.4 and patient is started on oral supplementation. 03/02/2023 Patient is seen and evaluated in follow-up today awaiting to receive dialysis today. Patient being followed by nephrology and will discuss further about outpatient dialysis as patient continues with temporary catheter. Patient remains on Lasix drip and diuresis and well and continues with significant overload. Patient with bullous pemphigus and was evaluated by wound care recommending wound care as patient also has decubitus ulcers. Will consult infectious disease and appreciate input and recommendations regarding concerns for possible underlying infection of the left forearm. Will add some IV steroids as well and monitor and recommend Accu-Cheks before meals and at bedtime and will use sliding scale as needed. Patient is currently afebrile with no reports of worsening shortness of breath or chest pains. Patient is currently maintaining good oxygen saturations above 95% on 4-6 L via nasal cannula. 03/03/2023 Patient is seen and evaluated today with multiple consultations following. Hematology/Oncology consulted and has ordered 24-hour urine along with additional testing which is pending. Patient is maintained on Lasix 80 mg IV push twice daily and metolazone being ordered. Patient continues with significant volume overload with no plans of dialysis today. Patient continues with temporary dialysis catheter and will need to discuss further with nephrology if patient will require permanent dialysis catheter and outpatient hemodialysis to be arranged. Patient with some weakness and recommend physical therapy evaluation daily. Patient also continued on local wound care of the buttocks area and has history of bullous pemphigus and infectious disease consulted. Patient started on low-dose IV steroids and will continue with Accu- Cheks before meals and at bedtime and monitor for some improvement. Hemoglobin is stable at 8.7 and platelets are 173. Sodium is 137 with a potassium of 5.2, BUN is 32 with a creatinine of 2.95, magnesium is 2.1. Patient is currently afebrile with no reports of chest pain or worsening shortness of breath. Patient is diuresing and currently maintained on 5 L via nasal cannula with an oxygen saturation of 98%. Recommend weaning FiO2 as tolerated as patient does not normally wear oxygen outpatient. 03/04/2023 Patient is seen and evaluated in follow-up today currently awaiting labs which are pending at this time. Per nursing staff no further reports of blood noted in the urine and will resume anticoagulant. Nephrology following awaiting follow-up labs and awaiting to see if hemodialysis is to be done today. Patient reports to feeling better currently maintained on 5 L and denies worsening shortness of breath. Patient is also continued on IV steroids and bullous pemp higus lesions appear to be somewhat improved. We'll continue for another day along with sliding scale and Accu-Cheks and titrate down on the dose of steroids. Continue with local wound care. Patient also being followed by physical therapy and possible discussion of ECF with case management following. Urology has been consulted for the hematuria although hematuria has resolved and will continue with indwelling Barkley catheter for intake and output monitoring and monitor for any further bleeding. 03/05/2023 Patient is seen and evaluated this morning maintained on 5-6 L of oxygen via nasal cannula with oxygen saturations above 90%. Multiple medical consultations including vascular surgery consulted again as patient will be requiring permanent catheter placement for hemodialysis outpatient. Patient to receive ultrafiltration today as well as tomorrow. Plan is for permacath placement tomorrow and will hold anticoagulation for now. Hemoglobin is stable at 7.7, sodium is 131 with a potassium of 4.6, BUN is 33 and creatinine is 3.16. Blood sugars remain elevated at times and will continue current regimen. Patient is receiving IV steroids and will discontinue tomorrow. Transition to oral steroid taper. Patient is afebrile with no reports of chest pain or worsening shortness of breath. Patient tolerating diet and will be nothing by mouth at midnight for dialysis catheter placement. Hematology/oncology following as well awaiting labs that were sent out. Per case management plan is for home with home care and arranging for outpatient dialysis. Recommend physical therapy daily. 03/06/2023 Patient is seen and evaluated in follow-up this morning currently scheduled to undergo dialysis catheter placement with Dr. Cano today. Anticoagulation currently on hold and will resume post. Patient maintained on IV steroids for pemphigus showing some improvement and will titrate and start oral steroids 20 mg daily for the next 2 days and then 10 mg daily for 2 days then discontinue. Recommend continue monitoring Accu-Cheks and continue sliding scale. Patient is currently afebrile reports improvements in shortness of breath although continues to be extremely dyspneic with minimal exertion. Patient is continued on 6-7 L nasal cannula high flow. Patient was not wearing oxygen prior to admission. Patient will need oxygen on discharge to manage CHF. Working t owards at least 4-5 L nasal cannula with tolerance. Patient is extremely weak with physical therapy evaluating and plans are for home with home care. Case management following and arranging for outpatient dialysis. 03/09/2023 Patient is seen in follow-up today with multiple medical consultations following. Patient has received permanent dialysis catheter on the chest and scheduled for hemodialysis today. Case management following and has arranged for outpatient dialysis to occur on Thursday/Thursday/Thursday with next session being Thursday at 6 AM. Patient with significant weakness reports has been up sitting in the chair although has not been up and walking and plan is to return home with . Will have physical therapy evaluate the patient on walking. Patient had been refusing to go to rehab. Patient continues on 5 L oxygen via nasal cannula and will require oxygen on discharge to manage CHF. Chest x-ray shows stable bilateral pleural effusions and again is scheduled for dialysis today. Will ask physical therapy to evaluate the patient either later this afternoon or early a.m. as patient reports he is refusing to work with them if receiving dialysis today. Patient is afebrile with no reports of chest pain or worsening shortness of breath. Patient reports to tolerating diet with no reports of nausea or vomiting noted. 03/10/2023 Patient is seen in follow-up today with multiple medical consultations following maintained on 5-6 L via nasal cannula. Patient reports shortness of breath although no worsening and reports is variable once he feels he is a little exerted he becomes more dyspneic but recovers on nasal cannula. Patient will require oxygen on discharge. Pulmonary following and has cleared the patient for discharge. Patient to receive dialysis in the morning and plan for discharge planning thereafter as patient reports will be going home with with home care. Patient is afebrile with no reports of chest pain or palpitations. Patient does have permanent dialysis catheter placed and arranged for outpatient dialysis on Thursday/Thursday/Thursday. Discharge planning in process for the next 24 hours. 03/11/2023 Patient is seen and evaluated this morning currently receiving hemodialysis. Patient will be scheduled for Thursday//Thursday an initial start time will be at 11 AM at the dialysis center. Patient has been cleared by consultations for discharge and patient reporting significant weakness. Patient evaluated by physical therapy and most likely would benefit from rehab although patient and are refusing them like to take the patient home with home care. Arrangements for some equipment being made for today and will plan for early discharge in a.m. to accommodate dialysis schedule in the outpatient setting. Case management following and arranging for home oxygen for discharge as well. Review of systems: Constitutional: no reports of fatigue, no fever, or chills Cardiovascular: No reports of chest pain or palpitations Respiratory: reports some improvement in shortness of breath GI: No reports of nausea, vomiting, or diarrhea : No reports of dysuria or retention Neurovascular: reports of generalized weakness All medications have been reviewed PHYSICAL EXAMINATION: GENERAL: The patient is awake, alert and oriented x3. Ill-appearing, elderly appearing, morbidly Obese HEENT: Pupils are round and equally reacting to light. EOMI. No scleral icterus. No conjunctival pallor. Normocephalic, atraumatic. No pharyngeal erythema. No thyromegaly. CARDIOVASCULAR: S1 and S2 muffled PULMONARY: Diminished breath sounds bilaterally with some coarse rhonchi noted, faint crackles at the bases noted ABDOMEN: Soft, nontender, nondistended, normoactive bowel sounds. No palpable organomegaly. MUSCULOSKELETAL: No joint swelling or deformity. EXTREMITIES: No cyanosis, clubbing, anasarca, pitting pedal edema showing some improvement. Some improvement in edema of upper and lower extremities NEUROLOGICAL: Gross neurological examination did not reveal any focal deficits. SKIN: Stage II pressure ulcers, pale Assessment: -Acute on chronic diastolic congestive heart failure -Cardiogenic shock status post pressor support, resolved -Acute hypoxic respiratory failure: Secondary to heart failure exacerbation. -Atrial fibrillation, paroxysmal patient is rate controlled at this time -Right pleural effusion -Hematuria, most likely related to trauma from indwelling Barkley catheter, resolved -Acute kidney injury with acute tubular necrosis secondary to hypotension and cardiorenal syndrome, improving requiring emergent dialysis, Status post permanent dialysis catheter placement 03/06/2023 -Chronic kidney disease probably secondary to nephrosclerosis -Hyperkalemia secondary to acute renal failure, requiring dialysis, improving -Macrocytic anemia -Pressures ulcers stage II bilateral buttocks, present on admission -Morbid obesity with a BMI of 40.9 -possible sleep apnea, will need outpatient sleep study -hyperlipidemia history -Benign prostatic hypertrophy, maintained on tamsulosin -Bullous pemphigus has a wound in the left lower extremity, continue local wound care -Vitamin D deficiency -Chronic low back pain -GI prophylaxis -DVT prophylaxis: On anticoagulation as mentioned above -Full code Plan: Patient continues to be on Demadex with nephrology following and plan is for dialysis today and currently receiving. Patient will be followed by nephrology in the outpatient setting and arrangements have been scheduled for Thursday//Thursday dialysis appointments. First appointment for the outpatient setting to occur on 11 AM and discharge planning in place for early a.m. Discussed with patient and and strongly encouraged ECF although they feel they can manage and are adamant they are going home with home care. Case management following and arranging for home oxygen for discharge and hopeful for kinks to be delivered today as we are planning an early discharge in the a.m. to accommodate dialysis on Continue with renal diet and strict intake and output. Wean FiO2 as tolerated currently maintained on 5 L. Will resume Flomax and patient to continue with indwelling Barkley catheter for retention for now with possible trial void with urology follow-up in 1-2 weeks. Hematology/Oncology following per nephrology with abnormal lab values and will need outpatient follow-up Recommend turning the patient every 2-3 hours and frequent offloading of the sacral area with continued wound care Due to multiple complex medical issues, prognosis is extremely guarded Plan is for discharge in the next 24 hours The impression and plan of care has been dictated by Sandra Ayala, Nurse Practitioner as directed. Dr. Cleopatra MD I have performed a history and examination and MDM of this patient, discussed the same with the dictator, and agree with the dictator's assessment and plan as written ,documented as a scribe. Based on total visit time, I have performed more than 50% of the visit. Objective - Vital Signs Vital signs: Vital Signs Temp 98.5 F 03/12/23 02:00 Pulse 72 03/12/23 02:00 Resp 17 03/12/23 02:00 BP 109/69 03/12/23 02:00 Pulse Ox 97 03/12/23 02:00 FiO2 100 02/27/23 08:19 Intake & Output 03/11/23 03/11/23 03/12/23 06:59 18:59 06:59 Intake Total 360 450 Output Total 400 3051 Balance -40 -2601 Weight 120.5 kg Intake: IV 120 0.9% @ KVO 120 Oral 240 Hemodialysis 450 Output: Urine 400 400 Hemodialysis 2651 Other: Voiding Method Indwelling Catheter Indwelling Catheter Indwelling Catheter # Bowel Movements 1 ABP, PAP, CO, CI - Last Documented Arterial Blood Pressure 132/44 - Labs CBC & Chem 7: 03/09/23 06:31 03/09/23 06:31 Labs: Abnormal Lab Results - Last 24 Hours (Table) 03/11/23 03/11/23 03/11/23 Range/Units 11:36 17:14 21:25 POC Glucose (mg/dL) 155 H 177 H 226 H (70-110) mg/dL
[2023-03-12] MEDS: INSULIN ASPART (NovoLOG) 100 UNIT/ML VIAL SQ SCH (06:41)
[2023-03-12] MEDS: MIDODRINE 5 MG TAB PO SCH (06:55)
[2023-03-12 07:08] VITALS: BP 140/71; RESP 18; TEMP 98.1
[2023-03-12] MEDS: TAMSULOSIN 0.4 MG CAP.ER.24H PO SCH (10:23)
[2023-03-12] MEDS: ATORVASTATIN 40 MG TAB PO SCH (10:24)
[2023-03-12] MEDS: CHOLECALCIFEROL 25 MCG (1000 IU) TABLET PO SCH (10:24)
[2023-03-12] MEDS: ASPIRIN 81 MG PO SCH (10:24)
[2023-03-12] MEDS: atenoloL 25 MG TAB PO SCH (10:24)
[2023-03-12] MEDS: THIAMINE 100 MG TAB PO SCH (10:25)
[2023-03-12] MEDS: PANTOPRAZOLE 40 MG/10 ML VIAL IVP SCH (10:25)
[2023-03-12] MEDS: RIVAROXABAN 20 MG TAB PO SCH (10:25)
[2023-03-12] MEDS: HYDROPHILIC CREAM 180 GM TUBE TOPICAL SCH (10:25)
[2023-03-12] MEDS: TORSEMIDE 20 MG TAB PO SCH (10:25)
[2023-03-12] MEDS: lisinopriL 20 MG TAB PO SCH (10:25)
--- NOTE | 2023-03-12 11:47 | P.PN ---
Subjective Progress Note Date: 03/12/23 I am seeing this patient in new consultation today 02/25/2023 for suspected acute exacerbation of diastolic congestive heart failure. Patient is a 67-year-old white male with past medical history significant for atrial fibrillation, hyperlipidemia, hypertension, diabetes mellitus type 2, DVT, BPH, bullous pemphigoid and chronic back pain. 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 He has been having shortness of breath that has progressively worsened over the last couple weeks. It is especially worse on exertion, and states he can only walk approximately 5 feet. He sleeps in a recliner at home. He's had progressively worsening generalized swelling. Denies any chest pain, heart palpitations, syncope. Chest x-ray on arrival showed cardiomegaly with pulmonary vascular congestion and bilateral pleural effusions. Patient is currently sitting up in bed, on 4 L/m nasal cannula, and is fairly comfortable. He does have gross anasarca. He is pale. Blood pressure is borderline. He has been started on midodrine, and may have to be transferred to the intensive care unit for norepinephrine infusion. Last blood pressure was 90/50. ECG shows atrial fibrillation with controlled ventricular rate. Currently receiving Lasix 40 mg 3 times a day. Barkley catheter has been inserted for accurate intake and output. Patient does have a component of acute kidney injury. He was hyperkalemic, with a potassium of 6.5 on arrival, and was given 10 units of regular insulin, 1 amp D50 W, 1 amp sodium bicarb, and Lokelma. Potassium level did come down to 5.8. BMP on arrival shows sodium 138, potassium down to 5.8, chloride of 112, serum bicarbonate 24, BUN 62, creatinine 2.17, glucose 84. CBC on arrival shows a WBC count of 5.7, hemoglobin 9.5, hematocrit 30.1, platelets 230. He is anemic, and his Xarelto dose was reportedly increased for A. fib prophylaxis back in September 2022. He was found to have new onset A. fib. He denies any bloody bowel movements or melena. Echocardiogram done at that time showed a normal ejection fraction of 55-60% without any valvular abnormality. NT proBNP was elevated at 5360. As stated above, patient has been hypotensive, and may require transfer to the intensive care unit on Levophed if no improvement with midodrine. On today's evaluation of of 02/26/2023, the patient is being seen in follow-up in the intensive care unit. He had a very complicated course yesterday. Note that he continued to have issues with hyperkalemia that was unresponsive to medical treatment. The patient also continued to have difficulties and hypotension, massive fluid overload and low urine output. He was not responding adequately to the diuretics. He was on high-dose pressors and his norepinephrine at a certain stage was running as high as 0.45 mcg/kg/m. As such, it was decided to proceed with hemodialysis. His control his potassium. No ultrafiltration was done. Dialysis was completed a potassium level improved and it dropped down to 4.9 and this morning is up to 5.1. Noted the patient was having episodes of sinus bradycardia yesterday due to his hyperkalemia. His cur rent cardiac rhythm is sinus. Rate is 65. His norepinephrine has been weaned down to 0.14 mcg/kg/m. He remains on a Lasix drip and is producing somewhere between 40-50 mL of urine output. He continues to have massive fluid overload and fluid weeping from the skin surface of his lower extremities. BUN is 44 with a creatinine of 1.9 and a sodium level is at 139 and a potassium level of 5.1. The patient was at 8.4 with a hemoglobin of 8.7. His ultrasound of the abdomen and the kidneys were done. The patient had no major abnormalities. His common bile duct measured 9 mm in size. No evidence of any hydronephrosis. His echocardiogram was also repeated yesterday and the patient was found to have left ventricular ejection fraction of 55-60%. He had mild RV dilatation. Mild pulmonary hypertension. No significant valvular abnormalities. The patient had a repeat chest x-ray today that showed bilateral pleural effusions and significant volume overload. The patient is currently on 100% nonrebreather facemask. Is arousable and is communicating and the is at the bedside. He does have a dialysis catheter in his left femoral vein. He also has a triple- lumen cath in his left subclavian vein. On today's evaluation of 02/27/2023, the patient is alert and awake and communicating. There is no significant improvement in his neurologic status since yesterday. In same time, there is improvement in volume status. The patient underwent already 2 sessions of hemodialysis and yesterday he received some ultrafiltration. The patient remains on IV albumin 12.5 g, 25%, every 8 hours and the patient is also on Lasix 10 mg an hour. Urine output is in order of 100 mL an hour. The patient has a BUN of 37 with a creatinine of 1.8. Potassium levels down to 4.4. The white cell cause of 9.1 with a hemoglobin of 8.0. His cardiac rhythm is still in nature fibrillation. His oxygenation is stable and the patient is currently on nasal cannula at 15 L. No major signs of any respiratory distress at this point. Hemoglobin is at 8.0. At the same time, the patient is on low-dose pressors and the patient is weaned off and his norepinephrine. norepinephrine is running at 0.08 mcg/kg/m. he remains on anticoagulation and he is on Xarelto . 02/28/2023, the patient is doing extremely well. He is on 4 L of oxygen by nasal cannula. He remains on Lasix drip at 10 mg an hour. Urine output is adequate. There is improvement in the edema as the patient is undergoing daily sessions of hemodialysis. He has already undergone 3 sessions of hemodialysis the last being yesterday. He is currently on 4 L O2. His off pressors. The patient's creatinine is down to 1.8 with a BUN of 30. Sodium level is at 136. White cell count of 8.0 with a hemoglobin of 7.7. Repeat chest x-ray was done this morning and shows moderate-sized bilateral pleural effusion and as such the patient continues to have some excess volume his chest. Nephrology is on the case. Pressors are off. Cardiac rhythm is atrial fibrillation. Remains on anticoagulation. 03/01/2023, patient was transferred also the ICU yesterday and the patient is currently being seen on a medical floor. He is doing well. No specific complaints. No chest pain. He continues to be on a Lasix drip at 10 mg an hour. His left is no hemodialysis was done yesterday. He is on no pressors for now. His edema is also improving although he does have some residual edema lower extremity bilaterally. He is on no pressors. Is on anticoagulation. No altered mentation. No chest pain. No other new complaints otherwise for now. The patient is seen today 03/02/2023 in follow-up on the regular medical floor. He is currently sitting up in bed. Awake and alert in no acute distress. He is maintaining O2 saturations in the 90s on 4 L/m per nasal cannula. He is continued on a Lasix drip at 10 mg per hour. The plan is for hemodialysis today. Urine output currently at 1300 ML's in the past 24 hours. Sodium 140. Potassium 5.1. Bicarb 31. BUN 32. Creatinine 2.54. Glucose 109. He is continued on midodrine. Pressure stable. The patient is seen today 03/03/2023 in follow-up on the regular medical floor. He is currently sitting up in bed. Awake and alert in no acute distress. Maintaining O2 saturations in the 90s on 5 L/m per nasal cannula. Continues on a Lasix drip at 10 mg per hour. Currently in a -2.1 L balance. White count 11.2. Hemoglobin 8.7. Platelets 173. Sodium 137. Potassium 5.2. Bicarb 28. BUN 32. Creatinine 2.95. Glucose 160. He is continued on Xarelto. The patient is seen today 03/04/2023 in follow-up on the regular medical floor. He is awake and alert in no acute distress. Breathing easier today compared to yesterday. He did undergo hemodialysis with another 3 L of fluid removed. He has less edema. Today's labs are pending. He is making urine. He remains on Solu-Medrol. Continued on Xarelto for anticoagulation. The patient is seen today 03/05/2023 in follow-up on the regular medical floor. He is currently resting comfortably in bed. Maintaining O2 saturations in the 90s on 5 L/m per nasal cannula. Currently receiving iron replacement. No worse tonya shortness of breath, cough or congestion. He did receive hemodialysis again yesterday with 3 L ultrafiltration. As for ultrafiltration again today per nephrology. Plan is for permacath placement and removal of the femoral catheter tomorrow. White count 9.9. Hemoglobin 7.7. Sodium 131. Potassium 4.6. Bicarb 27. BUN 33. Creatinine 3.16. The patient is seen today 03/06/2023 in follow-up on the regular medical floor. He is awake and alert in no acute distress. Feeling better today compared to yesterday. Requiring 6-7 liters high flow nasal cannula with O2 saturations in the mid to upper 90s. Follow-up chest x-ray shows similar findings with bilateral pleural effusions right greater than left. He is continuing to receive daily dialysis for ultrafiltration. Plan is for permacath placement today. Blood sugar 193. The patient is seen today 03/07/2023 in follow-up on the regular medical floor. He sitting up in bed. Awake and alert in no acute distress. He continues to maintain good O2 saturations in the mid to upper 90s on 6 L high flow nasal cannula. He did undergo a right jugular dialysis catheter placement. Left femoral temporary catheter was removed. His urine output has picked up with 750 ML's overnight. He did receive ultrafiltration. He is currently in a -2 L balance. Chest x-ray continues to show patchy basilar infiltrates right greater than left. Blood sugar 111. The patient is seen today 03/08/2023 in follow-up on the regular medical floor. He is currently sitting up in a chair. Awake and alert in no acute distress. Breathing a bit easier today compared to yesterday. Maintaining good O2 saturations in the 90s on 4 L/m per nasal cannula. Afebrile. Hemodynamically stable. He did receive hemodialysis yesterday with 3.8 L removed. Currently in a -1.2 L balance. He is making good urine. White count 10.4. Hemoglobin 9.1. Platelets 302. 33. Potassium 3.9. Bicarb 31. BUN 34. Creatinine 2.70. Glucose 124. The patient is seen today 03/09/2023 in follow-up on the regular medical floor. He is currently resting comfortably in bed. Awake and alert in no acute distress. Maintaining good O2 saturations in the high 90s on 5 L high flow nasal cannula. Afebrile. Hemodynamically stable. X-ray shows stable bilateral pleural effusions. It is for hemodialysis today. Continued on torsemide. Anticoagulated with Xarelto. The patient is seen today 03/10/2023 in follow-up on the regular medical floor. He is resting in bed. Awake and alert in no acute distress. He's been afebrile. Hemodynamically stable. He did undergo hemodialysis yesterday with another 2.9 L of fluid removed. He is currently on 6 L high flow nasal cannula. Normal saline at KVO. Blood glucose 104. He remains on Xarelto for anticoagulation. Continued on oral diuretics. Early in -3.6 L balance. Making good urine. The patient is seen today 03/11/2023 in follow-up on the regular medical floor. Remains awake and alert in no acute distress. Sitting up in bed. Maintaining O2 saturations on 3 L/m per nasal cannula. Normal saline at KVO. Continued on Xarelto for anticoagulation. Remains on oral diuretics. To be on a Thursday hemodialysis schedule now. The patient is seen today 03/12/2023 in follow-up on the regular medical floor. He is currently sitting up in the bedside. He denies to maintain O2 saturations in the 90s on 3 L/m per nasal cannula. Planning on going home this morning and then to dialysis later today. He denies any worsening shortness of breath, cough or congestion. Blood glucose 115. He was continued on Demadex. Antiplatelet with Xarelto. Objective - Vital Signs Vital signs: Vital Signs Temp 98.1 F 03/12/23 07:07 Pulse 72 03/12/23 07:07 Resp 18 03/12/23 07:07 BP 140/71 03/12/23 07:07 Pulse Ox 100 03/12/23 08:27 FiO2 100 02/27/23 08:19 Intake & Output 03/11/23 03/12/23 03/12/23 18:59 06:59 18:59 Intake Total 450 Output Total 3051 200 Balance -2601 -200 Intake: Hemodialysis 450 Output: Urine 400 200 Hemodialysis 2651 Other: Voiding Method Indwelling Catheter Indwelling Catheter Indwelling Catheter # Bowel Movements 1 ABP, PAP, CO, CI - Last Documented Arterial Blood Pressure 132/44 - Exam GENERAL EXAM: Alert, 67-year-old male, on 3 L nasal cannula, in no acute distress HEAD: Normocephalic. EYES: Normal reaction of pupils, equal size. NOSE: Clear with pink turbinates. THROAT: No erythema or exudates. NECK: No masses, no JVD. Right IJ permacath in place CHEST: No chest wall deformity. LUNGS: Equal air entry with bibasilar inspiratory crackles. Right greater than left. CVS: S1 and S2 normal with no audible murmur, irregular rhythm. No extra heart sounds ABDOMEN: Obese abdomen, no hepatosplenomegaly, active bowel sounds, no guarding or rigidity. SPINE: No scoliosis or deformity SKIN: No rashes. Bilateral buttocks stage II pressure injuries. Do not appear infected. There is generalized ecchymosis. CENTRAL NERVOUS SYSTEM: No focal deficits, tone is normal in all 4 extremities. EXTREMITIES: There is peripheral edema pitting edema of bilateral upper and lower extremities, +1. No clubbing, or cyanosis. Peripheral pulses are intact. - Labs CBC & Chem 7: 03/09/23 06:31 03/09/23 06:31 Labs: Abnormal Lab Results - Last 24 Hours (Table) 03/11/23 03/11/23 03/12/23 Range/Units 17:14 21:25 06:17 POC Glucose (mg/dL) 177 H 226 H 115 H (70-110) mg/dL Assessment and Plan Assessment: Acute hypoxemic respiratory failure secondary to exacerbation of diastolic congestive heart failure. Chest x-ray on arrival shows cardiomegaly with pulmonary vascular congestion and small bilateral pleural effusions. NT proBNP was elevated at 5360. Recent echocardiogram back in September, shows left ventricular hypertrophy, with a preserved left ventricular ejection fraction of 55-60%, and no valvular abnormalities reported. Chest x-ray continues to show bilateral pleural effusions right greater than left and currently is on 3 L of oxygen by nasal cannula. Continues with hemodialysis, remains on Demadex. Right IJ permacath placed. Bilateral pleural effusions, repeat chest x-ray shows small to moderate-sized pleural effusion bilaterally right greater than left. Encephalopathy, recovered Hypotension, recovered Bullous pemphigus Atrial fibrillation with controlled ventricular rate, anticoagulated on Xarelto, rate is controlled for now Acute kidney injury, possibly cardiorenal versus ATN. Creatinine today is at 2.7, no hydronephrosis, the patient is undergoing hemodialysis with ultrafiltration and the patient is also on torsemide Hyperkalemia, improved with hemodialysis. The patient also received medical management for hyperkalemia and his potassium level was refractory and as such required dialysis. The patient has multiple sessions of hemodialysis in the potassium level is normalized. Anemia, no reported acute blood loss. Mildly macrocytic Hypoalbuminemia and gross anasarca Pressure injuries, stage II, on bilateral buttocks Hyperlipidemia BPH Obesity, with a BMI of 40 kg/m Plan: The patient was seen and evaluated Medications reviewed Stable and down to 3 L nasal cannula Cleared for discharge from the pulmonary standpoint To continue outpatient hemodialysis I have personally seen and examined the patient, performed the documentation and the assessment and plan as written. Number of minutes spent on the visit: 10.
--- NOTE | 2023-03-13 06:17 | P.DS ---
Providers Date of admission: 02/24/23 18:59 Expected date of discharge: 03/12/23 Attending physician: Giovani Gardner Consults: 02/24/23 18:59 Consult Physician Routine Consulting Provider: [facility] Consult Reason/Comments: Pulmonary edema Do you want consulting provider notified?: Yes Consult Physician Routine Consulting Provider: Annabel Gonzalez Consult Reason/Comments: Acute renal failure Do you want consulting provider notified?: Yes 02/24/23 22:17 Consult Physician Stat Consulting Provider: Haydee Guadalupe Consult Reason/Comments: SOB, pulmonary edema Do you want consulting provider notified?: Yes 02/25/23 16:20 Consult Physician Stat Consulting Provider: Sergio Cano Consult Reason/Comments: Placement of temporary HD catheter Do you want consulting provider notified?: Yes 03/02/23 11:43 Consult Physician Routine Consulting Provider: Jonathan Hernandez Consult Reason/Comments: r/o MM Do you want consulting provider notified?: Yes 03/02/23 13:47 Consult Physician Urgent Consulting Provider: Marely Clemons Consult Reason/Comments: bullous pemphigus, poss underlying cellulitis, on right arm Do you want consulting provider notified?: Yes 03/03/23 19:35 Consult Physician Routine Consulting Provider: Rodo Barrios Consult Reason/Comments: Bloody urine Do you want consulting provider notified?: Yes Primary care physician: Tomasz Canales Hospital Course: Final diagnosis -Acute on chronic diastolic congestive heart failure -Cardiogenic shock status post pressor support, resolved -Acute hypoxic respiratory failure: Secondary to heart failure exacerbation. -Atrial fibrillation, paroxysmal patient is rate controlled at this time -Right pleural effusion -Hematuria, most likely related to trauma from indwelling Barkley catheter, resolved -Acute kidney injury with acute tubular necrosis secondary to hypotension and cardiorenal syndrome, improving requiring emergent dialysis, Status post permanent dialysis catheter placement 03/06/2023 -Chronic kidney disease probably secondary to nephrosclerosis -Hyperkalemia secondary to acute renal failure, requiring dialysis, improving -Macrocytic anemia -Pressures ulcers stage II bilateral buttocks, present on admission -Morbid obesity with a BMI of 40.9 -possible sleep apnea, will need outpatient sleep study -hyperlipidemia history -Benign prostatic hypertrophy, maintained on tamsulosin -Bullous pemphigus has a wound in the left lower extremity, continue local wound care -Vitamin D deficiency -Chronic low back pain -GI prophylaxis -DVT prophylaxis: On anticoagulation as mentioned above -Full code Discharge disposition Patient is being discharged in a stable condition with guarded prognosis to home with home care . Patient will follow-up with Dr. Canales in the outpatient setting upon discharge. Patient is to continue with hemodialysis as scheduled with today being the first session and will continue on Thursday//Thursday. Patient will need urology follow-up along with nephrology, pulmonary, cardiology. Total time taken is greater than 35 minutes. Hospital course This is a 67-year-old male who was recently admitted with heart failure exacerb ation acute hypoxic respiratory failure with shock and being closely monitored. Multiple medical consultations following the patient required hemodialysis. Patient has received a permanent dialysis catheter and is being arranged for Thursday//Thursday. Patient will need close outpatient follow-up with multiple medical consultations. Patient also maintained on Xarelto and needs follow-up with cardiology. Patient is significantly weak and would benefit highly from ECF to build strength and mobility prior to going home on patient and are adamant they are taking him home and caring for him in the home. Given patient's significant current medical problems and comorbidities patient is extremely high risk for readmission and this was discussed with Savanna at bedside as well. Please refer to consultations for further HPI is patient has been cleared by all consultations for discharge today. Patient will be going directly to dialysis that has been arranged for outpatient. Patient had some retention requiring indwelling Barkley catheter and given patient is not very mobile and up recommend continuing Barkley catheter with outpatient follow-up with urology. Flomax has been resumed. Currently no reports of chest pain, worsening shortness of breath, or palpitations. Patient is afebrile. No reports of nausea or vomiting and patient is tolerating diet. Patient will be discharged home today. Extremely high risk for readmissions given patient's significant comorbidities and severe weakness. Have discussed multiple times about rehab and they are adamant they're not going to rehab. Guarded prognosis. Physical exam: Gen: This is a 67-year-old male who is awake, alert and oriented 3, well- developed, well-nourished, morbidly obese HEENT: Head is atraumatic, normocephalic. Pupils equal, round. Sclerae is anicteric. NECK: Supple. No JVD. No lymphadenopathy. No thyromegaly. LUNGS: Diminished breath sounds bilaterally with some scattered rhonchi. No intercostal retractions. HEART: Regular rate and rhythm. No murmur. ABDOMEN: Soft. Obese. Bowel sounds are present. No masses. No tenderness. EXTREMITIES: Generalized pedal edema. No calf tenderness. NEUROLOGICAL: Patient is awake, alert and oriented x3. Cranial nerves 2 through 12 are grossly intact. Diffusely weak Please refer to medication reconciliation sheet for a list of medications. The impression and plan of care has been dictated by Sandra Ayala, Nurse Practitioner as directed. Dr. Cleopatra MD I have performed a history and examination and MDM of this patient, discussed the same with the dictator, and agree with the dictator's assessment and plan as written ,documented as a scribe. Based on total visit time, I have performed more than 50% of the visit. Patient Condition at Discharge: Fair Plan - Discharge Summary New Discharge Prescriptions: New Darbepoetin Naun [Aranesp] 40 mcg SQ Q7D each Torsemide [Demadex] 40 mg PO DAILY 30 Days #60 tab Midodrine [ProAmatine] 10 mg PO AC-TID 30 Days #180 tab Nystatin 100,000 Unit/gm Powd [Mycostatin Powder] 1 applic TOPICAL BID PRN 30 Days #1 each PRN Reason: chafing Thiamine [Vitamin B-1] 100 mg PO DAILY #30 tab Ergocalciferol [Vitamin D2 (1250 Mcg = 01793 Iu)] 1,250 mcg PO Q7D #4 cap Continue atenoloL [Tenormin] 25 mg PO BID Rivaroxaban [Xarelto] 20 mg PO DAILY 30 Days #30 tab metFORMIN HCL ER [Glucophage XR] 250 mg PO DAILY Tamsulosin [Flomax] 0.4 mg PO DAILY Atorvastatin [Lipitor] 40 mg PO DAILY Cholecalciferol [Vitamin D3 (125 Mcg = 5000 Iu)] 125 mcg PO DAILY Aspirin EC [Ecotrin Low Dose] 81 mg PO DAILY Magnesium 250 mg PO BID Alpha Lipoic Acid 1,200 mg PO BID Vitamin B Complex 1 cap PO DAILY lisinopriL [Prinivil] 20 mg PO DAILY Discontinued Calcium Carbonate [Tums] 500 mg PO TID PRN tab PRN Reason: Heartburn Furosemide [Lasix] 20 mg PO BID No Action HYDROcodone/APAP 5-325MG [[place] 5-325] 1 tab PO Q6HR PRN PRN Reason: Pain Discharge Medication List atenoloL [Tenormin] 25 mg PO BID 05/08/16 [History] Alpha Lipoic Acid 1,200 mg PO BID 10/20/22 [History] Aspirin EC [Ecotrin Low Dose] 81 mg PO DAILY 10/20/22 [History] Atorvastatin [Lipitor] 40 mg PO DAILY 10/20/22 [History] Cholecalciferol [Vitamin D3 (125 Mcg = 5000 Iu)] 125 mcg PO DAILY 10/20/22 [History] Magnesium 250 mg PO BID 10/20/22 [History] Tamsulosin [Flomax] 0.4 mg PO DAILY 10/20/22 [History] Rivaroxaban [Xarelto] 20 mg PO DAILY 30 Days #30 tab 10/22/22 [Rx] Vitamin B Complex 1 cap PO DAILY 02/24/23 [History] lisinopriL [Prinivil] 20 mg PO DAILY 02/24/23 [History] metFORMIN HCL ER [Glucophage XR] 250 mg PO DAILY 02/24/23 [History] Darbepoetin Naun [Aranesp] 40 mcg SQ Q7D each 03/11/23 [Rx] Ergocalciferol [Vitamin D2 (1250 Mcg = 56517 Iu)] 1,250 mcg PO Q7D #4 cap 03/11/23 [Rx] Midodrine [ProAmatine] 10 mg PO AC-TID 30 Days #180 tab 03/11/23 [Rx] Nystatin 100,000 Unit/gm Powd [Mycostatin Powder] 1 applic TOPICAL BID PRN 30 Days #1 each 03/11/23 [Rx] Thiamine [Vitamin B-1] 100 mg PO DAILY #30 tab 03/11/23 [Rx] Torsemide [Demadex] 40 mg PO DAILY 30 Days #60 tab 03/11/23 [Rx] HYDROcodone/APAP 5-325MG [[place] 5-325] 1 tab PO Q6HR PRN 03/12/23 [History] Follow up Appointment(s)/Referral(s): Rajeev Perez MD [STAFF PHYSICIAN] - 04/14/23 9:30 am Jonathan Hernandez [STAFF PHYSICIAN] - 03/16/23 4:45 pm Annabel Gonzalez MD [STAFF PHYSICIAN] - 1 Week (Dr. Gonzalez will see you at dialysis) [facility] [[facility]FF] - 03/11/23 6:00 am [facility] [NON-STAFF] - As Needed (will deliver portable to room and consentrator to home. Any questions please call agency) Tomasz Canales MD [Primary Care Provider] - 03/17/23 11:00 am Kamran Pardo MD [STAFF PHYSICIAN] - 03/18/23 1:40 pm [facility], [NON-STAFF] - Patient Instructions/Handouts: Acute Kidney Injury (DC), Using Oxygen at Home (DC), Hemodialysis (DC) Activity/Diet/Wound Care/Special Instructions: Hemodialysis at [facility], first treatment on 03/12/23 - report at 1100 Activity Limited until follow-up Follow-up with primary care provider on discharge Follow-up with consultations in the outpatient setting Continue hemodialysis as scheduled Continue renal diet, heart healthy and diabetic continue supplemental oxygen at 4 L via nasal cannula to manage CHF Discharge Disposition: HOME WITH HOME HEALTH SERVICES
== END 2023-03-12 09:44 | disposition home health service (06) | DRG 291 ==
LOC: EC 14:04 → 3SCARD 18:59 → 2SICU 02-25 02:46 → 4SSUR 02-28 15:16
PROVIDERS: ADMIT Hospitalist; ATTEND Hospitalist
PROC: 4A133J1 Monitoring of Arterial Pulse, Peripheral, Percutaneous Approach (ICD-10-PCS; 2023-02-25)
PROC: 02HV33Z Insertion of Infusion Device into Superior Vena Cava, Percutaneous Approach (ICD-10-PCS; 2023-02-25)
PROC: 06HY33Z Insertion of Infusion Device into Lower Vein, Percutaneous Approach (ICD-10-PCS; 2023-02-25)
PROC: 5A1D70Z Performance of Urinary Filtration, Intermittent, Less than 6 Hours Per Day (ICD-10-PCS; 2023-02-25)
PROC: 3E033XZ Introduction of Vasopressor into Peripheral Vein, Percutaneous Approach (ICD-10-PCS; 2023-02-25)
PROC: 03HY32Z Insertion of Monitoring Device into Upper Artery, Percutaneous Approach (ICD-10-PCS; principal; 2023-02-25 08:30)
PROC: 4A133B1 Monitoring of Arterial Pressure, Peripheral, Percutaneous Approach (ICD-10-PCS; 2023-02-25 08:30)
PROC: 30233J1 Transfusion of Nonautologous Serum Albumin into Peripheral Vein, Percutaneous Approach (ICD-10-PCS; 2023-02-26)
PROC: 5A0935A Assistance with Respiratory Ventilation, Less than 24 Consecutive Hours, High Flow/Velocity Cannula (ICD-10-PCS; 2023-02-27)
PROC: 0JH63XZ Insertion of Tunneled Vascular Access Device into Chest Subcutaneous Tissue and Fascia, Percutaneous Approach (ICD-10-PCS; 2023-03-08)
PROC: 02HV33Z Insertion of Infusion Device into Superior Vena Cava, Percutaneous Approach (ICD-10-PCS; 2023-03-08)
DX: I13.2 Hypertensive heart and chronic kidney disease with heart failure and with stage 5 chronic kidney disease, or end stage renal disease (principal); I50.33 Acute on chronic diastolic (congestive) heart failure; J96.01 Acute respiratory failure with hypoxia; N17.0 Acute kidney failure with tubular necrosis; R57.0 Cardiogenic shock; N18.6 End stage renal disease; G93.40 Encephalopathy, unspecified; N17.8 Other acute kidney failure; L12.0 Bullous pemphigoid; I48.20 Chronic atrial fibrillation, unspecified; Z68.41 Body mass index [BMI] 40.0-44.9, adult; L10.89 Other pemphigus; T83.091A Other mechanical complication of indwelling urethral catheter, initial encounter; I27.20 Pulmonary hypertension, unspecified; L89.152 Pressure ulcer of sacral region, stage 2; L89.322 Pressure ulcer of left buttock, stage 2; L89.312 Pressure ulcer of right buttock, stage 2; E11.22 Type 2 diabetes mellitus with diabetic chronic kidney disease; E66.01 Morbid (severe) obesity due to excess calories; L98.491 Non-pressure chronic ulcer of skin of other sites limited to breakdown of skin; S81.802A Unspecified open wound, left lower leg, initial encounter; D63.8 Anemia in other chronic diseases classified elsewhere; E83.51 Hypocalcemia; E87.5 Hyperkalemia; Z79.01 Long term (current) use of anticoagulants; D53.9 Nutritional anemia, unspecified; G89.29 Other chronic pain; N40.0 Benign prostatic hyperplasia without lower urinary tract symptoms; E78.5 Hyperlipidemia, unspecified; R00.1 Bradycardia, unspecified; R31.0 Gross hematuria; T46.4X5A Adverse effect of angiotensin-converting-enzyme inhibitors, initial encounter; N14.19 Nephropathy induced by other drugs, medicaments and biological substances; G47.30 Sleep apnea, unspecified; D47.2 Monoclonal gammopathy; M19.90 Unspecified osteoarthritis, unspecified site; R23.8 Other skin changes; N28.89 Other specified disorders of kidney and ureter; M54.50 Low back pain, unspecified; Y73.1 Therapeutic (nonsurgical) and rehabilitative gastroenterology and urology devices associated with adverse incidents; Z96.643 Presence of artificial hip joint, bilateral; Z79.899 Other long term (current) drug therapy; Z79.84 Long term (current) use of oral hypoglycemic drugs; Z79.82 Long term (current) use of aspirin; Z88.0 Allergy status to penicillin; Z88.6 Allergy status to analgesic agent; Z86.718 Personal history of other venous thrombosis and embolism; Z87.891 Personal history of nicotine dependence; E11.622 Type 2 diabetes mellitus with other skin ulcer
CPT/HCPCS: 36410; 36415; 36558; 71045; 71046; 76705; 76770; 76937; 77001; 80048; 80053; 80074; 81001; 82040; 82306; 82330; 82533; 82550; 82553; 82607; 82728; 83036; 83540; 83550; 83605; 83735; 83880; 83883; 83970; 84100; 84132; 84165; 84166; 84484; 85025; 85610; 85730; 86038; 86160; 86162; 86225; 86255; 86334; 86335; 86706; 87340; 90935; 93005; 93306; 94640; 94760; 96374; 96375; 96376; 99291

== ENCOUNTER 2023-03-12 18:58 | Inpatient (IN) | payer MEDICARE ==
[2023-03-12] MEDS ORDERED: SODIUM CHLORIDE 0.9% 1,000 ML IV STA (19:09)
--- NOTE | 2023-03-12 19:43 | ED ---
Recheck HPI - General Chief Complaint: Fall Stated Complaint: Weakness Time Seen by Provider: 03/12/23 19:09 Source: patient, EMS, RN notes reviewed, old records reviewed Mode of arrival: EMS Limitations: physical limitation - History of Present Illness Initial Comments: This is a 67-year-old male presents today for evaluation of weakness lightheadedness dizziness and debility. Patient states her is no way he is able to stand up, no wheeze able to walk on his own or bear any weight. Patient is just discharged from this hospital today and sent to dialysis, he did have dialysis and was significantly weak after being sent home from dialysis and pre sents to the ER by EMS MD Complaint: other (Significant debility and weakness) -: week(s) Returns Today for: other (Unable to ambulate) Symptoms Since Prior Visit: no new symptoms Associated Symptoms: none Treatments Prior to Arrival: other (Near syncopal with low blood pressure) - Related Data Home Medications Medication Instructions Recorded Confirmed atenoloL [Tenormin] 25 mg PO BID 05/08/16 03/12/23 Alpha Lipoic Acid 1,200 mg PO BID 10/20/22 03/12/23 Aspirin EC [Ecotrin Low Dose] 81 mg PO DAILY 10/20/22 03/12/23 Atorvastatin [Lipitor] 40 mg PO DAILY 10/20/22 03/12/23 Cholecalciferol [Vitamin D3 (125 125 mcg PO DAILY 10/20/22 03/12/23 Mcg = 5000 Iu)] Magnesium 250 mg PO BID 10/20/22 03/12/23 Tamsulosin [Flomax] 0.4 mg PO DAILY 10/20/22 03/12/23 Vitamin B Complex 1 cap PO DAILY 02/24/23 03/12/23 HYDROcodone/APAP 5-325MG [[place] 1 tab PO Q6HR PRN 03/12/23 03/12/23 5-325] Previous Rx's Medication Instructions Recorded Rivaroxaban [Xarelto] 20 mg PO DAILY 30 Days #30 tab 10/22/22 Darbepoetin Naun [Aranesp] 40 mcg SQ Q7D each 03/11/23 Ergocalciferol [Vitamin D2 (1250 1,250 mcg PO Q7D #4 cap 03/11/23 Mcg = 57718 Iu)] Midodrine [ProAmatine] 10 mg PO AC-TID 30 Days #180 tab 03/11/23 Nystatin 100,000 Unit/gm Powd 1 applic TOPICAL BID PRN 30 Days 03/11/23 [Mycostatin Powder] #1 each Thiamine [Vitamin B-1] 100 mg PO DAILY #30 tab 03/11/23 Torsemide [Demadex] 40 mg PO DAILY 30 Days #60 tab 03/11/23 Allergies Allergy/AdvReac Type Severity Reaction Status Date / Time Penicillins Allergy Rash/Hives Verified 03/12/23 20:01 ibuprofen AdvReac BURING Verified 03/12/23 20:01 SENSATION IN ARMS Review of Systems ROS Statement: Those systems with pertinent positive or pertinent negative responses have been documented in the HPI. ROS Other: All systems not noted in ROS Statement are negative. Past Medical History Past Medical History: Atrial Fibrillation, Heart Failure, Diabetes Mellitus, Deep Vein Thrombosis (DVT), Hypertension, Osteoarthritis (OA), Prostate Disorder Additional Past Medical History / Comment(s): back pain, MRI scheduled for 10/28/22 History of Any Multi-Drug Resistant Organisms: None Reported Past Surgical History: Orthopedic Surgery Additional Past Surgical History / Comment(s): bilateral total hip replacement. 200705-12-16 TOTAL RIGHT HIP REPLACEMENT. RT KNEE SX. RT SHOULDER SX. COLONOSCOPY Past Anesthesia/Blood Transfusion Reactions: No Reported Reaction Past Psychological History: No Psychological Hx Reported Smoking Status: Former smoker Past Alcohol Use History: None Reported Past Drug Use History: None Reported - Past Family History Mother Family Medical History: Diabetes Mellitus Father Additional Family Medical History / Comment(s): FROM SPINAL [place] General Exam Limitations: physical limitation General appearance: alert, in no apparent distress, anxious, lethargic, in distress, obese Head exam: Present: atraumatic, normocephalic, normal inspection Eye exam: Present: normal appearance, PERRL, EOMI. Absent: scleral icterus, conjunctival injection, periorbital swelling ENT exam: Present: normal exam, mucous membranes moist Neck exam: Present: normal inspection. Absent: tenderness, meningismus, lymphadenopathy Respiratory exam: Present: normal lung sounds bilaterally. Absent: respiratory distress, wheezes, rales, rhonchi, stridor Cardiovascular Exam: Present: regular rate, normal rhythm, normal heart sounds. Absent: systolic murmur, diastolic murmur, rubs, gallop, clicks GI/Abdominal exam: Present: soft, normal bowel sounds. Absent: distended, tenderness, guarding, rebound, rigid Extremities exam: Present: normal inspection, full ROM, normal capillary refill. Absent: tenderness, pedal edema, joint swelling, calf tenderness Back exam: Present: normal inspection Neurological exam: Present: alert, oriented X3, CN II-XII intact Psychiatric exam: Present: normal affect, normal mood Skin exam: Present: warm, dry, intact, normal color. Absent: rash Course Vital Signs 03/12/23 03/12/23 03/12/23 19:03 20:12 21:00 Temperature 97.8 F Pulse Rate 90 80 89 Respiratory 22 16 16 Rate Blood Pressure 90/43 116/51 113/60 O2 Sat by Pulse 100 99 92 L Oximetry 03/12/23 23:45 Temperature Pulse Rate 90 Respiratory 20 Rate Blood Pressure 105/53 O2 Sat by Pulse 96 Oximetry - Reevaluation(s) Reevaluation #1: 03/12/23 21:28 Medical records reviewed Reevaluation #2: 03/12/23 21:28 Patient's blood pressure did improve significantly with hydration, patient did present here right after dialysis Reevaluation #3: 03/12/23 21:29 Patient still feeling very weak states is no way he is able to walk Reevaluation #4: 03/12/23 21:29 Was pt. sent in by a medical professional or institution ([facility], LICENSED OCCUPATIONAL THERAPIST, urgent ca re, hospital, or penitentiary...) When possible be specific @ -no Did you speak to anyone other than the patient for history (EMS, parent, family, police, friend...)? What history was obtained from this source @ -no Did you review nursing and triage notes (agree or disagree)? Why? @ -agree Are old charts reviewed (outside hosp., previous admission, EMS record, old EKG, old radiological studies, urgent care reports/EKG's, penitentiary records)? Report findings @ -yes Differential Diagnosis (chest pain, altered mental status, abdominal pain women, abdominal pain men, vaginal bleeding, weakness, fever, dyspnea, syncope, headache, dizziness, GI bleed, back pain, seizure, CVA, palpatations, mental health, musculoskeletal)? @ -prior EKG interpreted by me (3pts min.). @ -yes X-rays interpreted by me (1pt min.). @ -yes CT interpreted by me (1pt min.). @ -no U/S interpreted by me (1pt. min.). @ -no What testing was considered but not performed or refused? (CT, X-rays, U/S, labs)? Why? @ -none What meds were considered but not given or refused? Why? @ -none Did you discuss the management of the patient with other professionals (professionals i.e. , PA, LICENSED OCCUPATIONAL THERAPIST, lab, RT, psych nurse, social service worker, filament coil winder, teacher, bomb squad officer, casework specialist)? Give summary @ -no Was smoking cessation discussed for >3mins.? @ -no Was critical care preformed (if so, how long)? @ -no Were there social determinants of health that impacted care today? How? (Homelessness, low income, unemployed, alcoholism, drug addiction, transportation, low edu. Level, literacy, decrease access to med. care, penitentiary, rehab)? @ -none Was there de-escalation of care discussed even if they declined (Discuss DNR or withdrawal of care, Hospice)? DNR status @ -no What co-morbidities impacted this encounter? (DM, HTN, Smoking, COPD, CAD, Cancer, CVA, ARF, Chemo, Hep., AIDS, mental health diagnosis, sleep apnea, morbid obesity)? @ -none Was patient admitted / discharged? Hospital course, mention meds given and route, prescriptions, significant lab abnormalities, going to OR and other pertinent info. @ - 67 male to the emergency department recent prolonged hospitalization admission including ICU stay. Patient has severe irritability with inability to ambulate or bear his own weight. Patient be admitted for PTOT, patient was also noted after dialysis today to have severely low blood pressure as well as on arrival here he did feel near syncopal, symptoms improved with fluid, patient is prescribed Midrin for low blood pressure Admitted Undiagnosed new problem with uncertain prognosis? @ -no Drug Therapy requiring intensive monitoring for toxicity (Heparin, Nitro, Insulin, Cardizem)? @ -no Were any procedures done? @ -no Diagnosis/symptom? @ -Weakness, debilitating Acute, or Chronic, or Acute on Chronic? @ -Acute Uncomplicated (without systemic symptoms) or Complicated (systemic symptoms)? @ -Complicated Side effects of treatment? @ -no Exacerbation, Progression, or Severe Exacerbation? @ -exacerbation Poses a threat to life or bodily function? How? (Chest pain, USA, NC, pneumonia, PE, COPD, DKA, ARF, appy, cholecystitis, CVA, Diverticulitis, Homicidal, Suicidal, threat to staff... and all critical care pts) @ -no Reevaluation #5: 03/12/23 21:29 Differential Weakness: Hypoglycemia, shock, sepsis, hyponatremia, anemia, infection, NC, ETOH, adverse medicine reaction, overdose, stroke, this is not meant to be an all-inclusive list. - Consultations Consultation #1: Spoke with who agree to admit this patient Medical Decision Making - Medical Decision Making 67 male to the emergency department recent prolonged hospitalization admission including ICU stay. Patient has severe irritability with inability to ambulate or bear his own weight. Patient be admitted for PTOT, patient was also noted after dialysis today to have severely low blood pressure as well as on arrival here he did feel near syncopal, symptoms improved with fluid, patient is prescribed Midrin for low blood pressure - Lab Data Result diagrams: 03/15/23 16:20 03/15/23 16:20 Lab Results 03/12/23 03/12/23 03/12/23 Range/Units 19:16 19:16 19:16 WBC 13.7 H (3.8-10.6) k/uL RBC 2.85 L (4.30-5.90) m/uL Hgb 8.9 L (13.0-17.5) gm/dL Hct 27.7 L (39.0-53.0) % MCV 97.2 (80.0-100.0) fL MCH 31.3 (25.0-35.0) pg MCHC 32.2 (31.0-37.0) g/dL RDW 15.3 (11.5-15.5) % Plt Count 343 (150-450) k/uL MPV 7.5 Neutrophils % 87 % Lymphocytes % 6 % Monocytes % 5 % Eosinophils % 1 % Basophils % 0 % Neutrophils # 11.9 H (1.3-7.7) k/uL Lymphocytes # 0.8 L (1.0-4.8) k/uL Monocytes # 0.6 (0-1.0) k/uL Eosinophils # 0.2 (0-0.7) k/uL Basophils # 0.0 (0-0.2) k/uL Hypochromasia Moderate PT 10.7 (9.0-12.0) sec INR 1.0 (<1.2) APTT 23.8 (22.0-30.0) sec Sodium (137-145) mmol/L Potassium (3.5-5.1) mmol/L Chloride (98-107) mmol/L Carbon Dioxide (22-30) mmol/L Anion Gap mmol/L BUN (9-20) mg/dL Creatinine (0.66-1.25) mg/dL Est GFR (CKD-EPI)AfAm (>60 ml/min/1.73 sqM) Est GFR (CKD-EPI)NonAf (>60 ml/min/1.73 sqM) Glucose (74-99) mg/dL Lactic Ac Sepsis Rflx Plasma Lactic Acid [place] (0.7-2.0) mmol/L Calcium (8.4-10.2) mg/dL Phosphorus (2.5-4.5) mg/dL Magnesium (1.6-2.3) mg/dL Total Bilirubin (0.2-1.3) mg/dL AST (17-59) U/L ALT (4-49) U/L Alkaline Phosphatase (38-126) U/L Troponin I (0.000-0.034) ng/mL Total Protein (6.3-8.2) g/dL Albumin (3.5-5.0) g/dL Urine Color Light Yellow Urine Appearance Turbid (Clear) Urine pH 6.5 (5.0-8.0) Ur Specific [place] 1.026 (1.001-1.035) Urine Protein 4+ H (Negative) Urine Glucose (UA) 3+ H (Negative) Urine Ketones Negative (Negative) Urine Blood Large H (Negative) Urine Nitrite Negative (Negative) Urine Bilirubin Negative (Negative) Urine Urobilinogen <2.0 (<2.0) mg/dL Ur Leukocyte Esterase Large H (Negative) Urine RBC >182 H (0-5) /hpf Urine WBC >182 H (0-5) /hpf Urine WBC Clumps Many H (None) /hpf Ur Squamous Epith Cells 2 (0-4) /hpf Urine Bacteria Moderate H (None) /hpf Hyaline Casts 16 H (0-2) /lpf Urine Mucus Few H (None) /hpf 03/12/23 03/12/23 03/12/23 Range/Units 19:16 19:16 19:16 WBC (3.8-10.6) k/uL RBC (4.30-5.90) m/uL Hgb (13.0-17.5) gm/dL Hct (39.0-53.0) % MCV (80.0-100.0) fL MCH (25.0-35.0) pg MCHC (31.0-37.0) g/dL RDW (11.5-15.5) % Plt Count (150-450) k/uL MPV Neutrophils % % Lymphocytes % % Monocytes % % Eosinophils % % Basophils % % Neutrophils # (1.3-7.7) k/uL Lymphocytes # (1.0-4.8) k/uL Monocytes # (0-1.0) k/uL Eosinophils # (0-0.7) k/uL Basophils # (0-0.2) k/uL Hypochromasia PT (9.0-12.0) sec INR (<1.2) APTT (22.0-30.0) sec Sodium 131 L (137-145) mmol/L Potassium 3.9 (3.5-5.1) mmol/L Chloride 98 (98-107) mmol/L Carbon Dioxide 26 (22-30) mmol/L Anion Gap 7 mmol/L BUN 19 (9-20) mg/dL Creatinine 2.09 H (0.66-1.25) mg/dL Est GFR (CKD-EPI)AfAm 36 (>60 ml/min/1.73 sqM) Est GFR (CKD-EPI)NonAf 31 (>60 ml/min/1.73 sqM) Glucose 123 H (74-99) mg/dL Lactic Ac Sepsis Rflx Plasma Lactic Acid [place] 3.6 H* (0.7-2.0) mmol/L Calcium 7.4 L (8.4-10.2) mg/dL Phosphorus 4.3 (2.5-4.5) mg/dL Magnesium 1.7 (1.6-2.3) mg/dL Total Bilirubin 0.5 (0.2-1.3) mg/dL AST 34 (17-59) U/L ALT 27 (4-49) U/L Alkaline Phosphatase 100 (38-126) U/L Troponin I <0.012 (0.000-0.034) ng/mL Total Protein 4.8 L (6.3-8.2) g/dL Albumin 2.0 L (3.5-5.0) g/dL Urine Color Urine Appearance (Clear) Urine pH (5.0-8.0) Ur Specific [place] (1.001-1.035) Urine Protein (Negative) Urine Glucose (UA) (Negative) Urine Ketones (Negative) Urine Blood (Negative) Urine Nitrite (Negative) Urine Bilirubin (Negative) Urine Urobilinogen (<2.0) mg/dL Ur Leukocyte Esterase (Negative) Urine RBC (0-5) /hpf Urine WBC (0-5) /hpf Urine WBC Clumps (None) /hpf Ur Squamous Epith Cells (0-4) /hpf Urine Bacteria (None) /hpf Hyaline Casts (0-2) /lpf Urine Mucus (None) /hpf 03/12/23 Range/Units 20:19 WBC (3.8-10.6) k/uL RBC (4.30-5.90) m/uL Hgb (13.0-17.5) gm/dL Hct (39.0-53.0) % MCV (80.0-100.0) fL MCH (25.0-35.0) pg MCHC (31.0-37.0) g/dL RDW (11.5-15.5) % Plt Count (150-450) k/uL MPV Neutrophils % % Lymphocytes % % Monocytes % % Eosinophils % % Basophils % % Neutrophils # (1.3-7.7) k/uL Lymphocytes # (1.0-4.8) k/uL Monocytes # (0-1.0) k/uL Eosinophils # (0-0.7) k/uL Basophils # (0-0.2) k/uL Hypochromasia PT (9.0-12.0) sec INR (<1.2) APTT (22.0-30.0) sec Sodium (137-145) mmol/L Potassium (3.5-5.1) mmol/L Chloride (98-107) mmol/L Carbon Dioxide (22-30) mmol/L Anion Gap mmol/L BUN (9-20) mg/dL Creatinine (0.66-1.25) mg/dL Est GFR (CKD-EPI)AfAm (>60 ml/min/1.73 sqM) Est GFR (CKD-EPI)NonAf (>60 ml/min/1.73 sqM) Glucose (74-99) mg/dL Lactic Ac Sepsis Rflx Y Plasma Lactic Acid [place] (0.7-2.0) mmol/L Calcium (8.4-10.2) mg/dL Phosphorus (2.5-4.5) mg/dL Magnesium (1.6-2.3) mg/dL Total Bilirubin (0.2-1.3) mg/dL AST (17-59) U/L ALT (4-49) U/L Alkaline Phosphatase (38-126) U/L Troponin I (0.000-0.034) ng/mL Total Protein (6.3-8.2) g/dL Albumin (3.5-5.0) g/dL Urine Color Urine Appearance (Clear) Urine pH (5.0-8.0) Ur Specific [place] (1.001-1.035) Urine Protein (Negative) Urine Glucose (UA) (Negative) Urine Ketones (Negative) Urine Blood (Negative) Urine Nitrite (Negative) Urine Bilirubin (Negative) Urine Urobilinogen (<2.0) mg/dL Ur Leukocyte Esterase (Negative) Urine RBC (0-5) /hpf Urine WBC (0-5) /hpf Urine WBC Clumps (None) /hpf Ur Squamous Epith Cells (0-4) /hpf Urine Bacteria (None) /hpf Hyaline Casts (0-2) /lpf Urine Mucus (None) /hpf - EKG Data -: EKG Interpreted by Me (EKG A. fib 101 QRS 85 QTc 408) - Radiology Data Radiology results: report reviewed (Chest x-rays negative for acute disease), image reviewed Disposition Clinical Impression: Acute renal failure, Congestive heart failure, Fall, Weakness, Debility, UTI (urinary tract infection), Hypotension Disposition: ADMITTED IP TO THIS [facility] Condition: Serious Is patient prescribed a controlled substance at d/c from ED?: No Time of Disposition: 21:30
[2023-03-12 20:00] LABS: Basophils % (A) 0 %; Eosinophils # (A) 0.2 k/uL (0-0.7); Eosinophils % (A) 1 %; HCT 27.7 % (39.0-53.0); HGB 8.9 gm/dL (13.0-17.5); Hypochromasia Moderate; Lymphocytes # (A) 0.8 k/uL (1.0-4.8); Lymphocytes % (A) 6 %; MCH 31.3 pg (25.0-35.0); MCHC 32.2 g/dL (31.0-37.0); MCV 97.2 fL (80.0-100.0); Mean Platelet Volume 7.5; Monocytes # (A) 0.6 k/uL (0-1.0); Monocytes % (A) 5 %; Neutrophils # (A) 11.9 k/uL (1.3-7.7); Neutrophils % (A) 87 %; Platelet Count 343 k/uL (150-450); RBC 2.85 m/uL (4.30-5.90); RDW 15.3 % (11.5-15.5); WBC 13.7 k/uL (3.8-10.6)
[2023-03-12 20:05] LABS: Appearance,Urine Turbid (Clear); Bacteria,Urine Moderate /hpf; Bilirubin,Urine Negative (Negative); Blood,Urine Large (Negative); Glucose,Urine (UA) 3+ (Negative); Hyaline Casts,Urine 16 /lpf (0-2); Ketones,Urine Negative (Negative); Leukocyte Esterase,Urine Large (Negative); Mucus,Urine Few /hpf; Nitrite,Urine Negative (Negative); PH, Urine 6.5 (5.0-8.0); Protein,Urine 4+ (Negative); RBC,Urine >182 /hpf (0-5); Specific Gravity,Urine 1.026 (1.001-1.035); Squamous Epithelial Cell,Urine 2 /hpf (0-4); Urobilinogen,Urine <2.0 mg/dL (<2.0); WBC,Urine >182 /hpf (0-5)
[2023-03-12 20:06] LABS: Color,Urine Light Yellow
[2023-03-12 20:10] LABS: Partial Thromboplastin Time 23.8 sec (22.0-30.0); Prothrombin Time 10.7 sec (9.0-12.0)
[2023-03-12 20:23] LABS: ALT 27 U/L (4-49); AST 34 U/L (17-59); African American GFR (CKD) 36 (>60 ml/min/1.73 sqM); Alkaline Phosphatase 100 U/L (38-126); Anion Gap 7 mmol/L; Blood Urea Nitrogen 19 mg/dL (9-20); Calcium 7.4 mg/dL (8.4-10.2); Carbon Dioxide 26 mmol/L (22-30); Chloride 98 mmol/L (98-107); Glucose 123 mg/dL (74-99); Magnesium 1.7 mg/dL (1.6-2.3); Non-African American GFR(CKD) 31 (>60 ml/min/1.73 sqM); Phosphorus 4.3 mg/dL (2.5-4.5); Potassium 3.9 mmol/L (3.5-5.1); Sodium 131 mmol/L (137-145); Total Bilirubin 0.5 mg/dL (0.2-1.3); Total Protein 4.8 g/dL (6.3-8.2)
--- NOTE | 2023-03-12 20:27 | XR ---
EXAMINATION TYPE: XR chest 1V portable DATE OF EXAM: 03/12/2023 HISTORY: Shortness of breath. COMPARISON: 03/09/2023 TECHNIQUE: Single view of the chest is submitted. FINDINGS: Demonstrated are scattered senescent parenchymal change. Persistent effusions essentially unchanged right greater than left. Underlying atelectasis or infiltr ates. Large bore central venous line. The heart is stable. Hilar and mediastinal structures are within normal limits. Degenerative changes are seen of the dorsal spine. IMPRESSION: 1. Stable chest
[2023-03-12] MEDS ORDERED: ONDANSETRON 4 MG/2 ML VIAL IVP PRN (21:26)
[2023-03-12] MEDS ORDERED: NALOXONE 0.4 MG/ML 1 ML VIAL IV PRN (21:26)
[2023-03-12] MEDS ORDERED: SODIUM CHLORIDE 0.9% 1,000 ML IV SCH (21:30)
[2023-03-12] MEDS: MORPHINE SULFATE 4 MG/ML SYRINGE IV PRN (23:05)
[2023-03-13] MEDS: MORPHINE SULFATE 4 MG/ML SYRINGE IV PRN ×5 (03:18→20:55)
[2023-03-13 06:21] LABS: Glucose,Whole Blood 126 mg/dL (70-110)
[2023-03-13 07:59] LABS: ALT 25 U/L (4-49); AST 32 U/L (17-59); African American GFR (CKD) 30 (>60 ml/min/1.73 sqM); Albumin 1.8 g/dL (3.5-5.0); Alkaline Phosphatase 74 U/L (38-126); Anion Gap 3 mmol/L; Blood Urea Nitrogen 25 mg/dL (9-20); Calcium 7.5 mg/dL (8.4-10.2); Carbon Dioxide 26 mmol/L (22-30); Chloride 103 mmol/L (98-107); Glucose 119 mg/dL (74-99); Magnesium 1.8 mg/dL (1.6-2.3); Non-African American GFR(CKD) 26 (>60 ml/min/1.73 sqM); Potassium 4.2 mmol/L (3.5-5.1); Sodium 132 mmol/L (137-145); Total Bilirubin 0.3 mg/dL (0.2-1.3); Total Protein 4.3 g/dL (6.3-8.2)
[2023-03-13 08:22] LABS: HCT 24.9 % (39.0-53.0); HGB 8.2 gm/dL (13.0-17.5); Hypochromasia Slight; MCH 31.4 pg (25.0-35.0); MCHC 32.7 g/dL (31.0-37.0); MCV 95.8 fL (80.0-100.0); Mean Platelet Volume 8.5; Platelet Count 342 k/uL (150-450); RDW 15.4 % (11.5-15.5); WBC 12.8 k/uL (3.8-10.6)
[2023-03-13 08:25] LABS: Phosphorus 5.4 mg/dL (2.5-4.5)
[2023-03-13] MEDS ORDERED: NYSTATIN 100,000 UNIT/GM POWD 15 GM TOPICAL PRN (09:57)
[2023-03-13 10:02] LABS: Eosinophils # (M) 0.38 k/uL (0-0.7); Lymphocytes # (M) 1.15 k/uL (1.0-4.8); Monocytes # (M) 1.02 k/uL (0-1.0); Myelocytes # (M) 0.13 k/uL (0); Myelocytes % 1 %; Neutrophils # (M) 10.24 k/uL (1.3-7.7); Neutrophils % (M) 80 %; Nucleated Red Blood Cells 0 /100 WBC (0-0); Total Cells Counted 200
[2023-03-13] MEDS ORDERED: NON FORMULARY DRUG (Vitamin B Complex [Vitamin B Complex] 1 EACH Capsule) PO SCH (10:45)
[2023-03-13] MEDS ORDERED: DARBEPOETIN ALFA 40 MCG/0.4 ML SYRINGE SQ SCH (11:00)
[2023-03-13] MEDS ORDERED: CEFEPIME 2 GM in SODIUM CHLORIDE 0.9% 100 ML IVPB STA (11:11)
[2023-03-13 11:14] LABS: Glucose,Whole Blood 118 mg/dL (70-110)
[2023-03-13] MEDS: ASPIRIN 81 MG PO SCH (11:26)
[2023-03-13] MEDS: TAMSULOSIN 0.4 MG CAP.ER.24H PO SCH (11:26)
[2023-03-13] MEDS: THIAMINE 100 MG TAB PO SCH (11:26)
[2023-03-13] MEDS: atenoloL 25 MG TAB PO SCH ×2 (11:26→20:01)
[2023-03-13] MEDS: RIVAROXABAN 20 MG TAB PO SCH (11:27)
[2023-03-13] MEDS: TORSEMIDE 20 MG TAB PO SCH (11:27)
[2023-03-13] MEDS: ERGOCALCIFEROL 1,250 MCG (50,000 IU) CAPSULE PO SCH (11:27)
--- NOTE | 2023-03-13 11:27 | P.NPCON ---
History of Present Illness - Reason for Consult acute renal failure - History of Present Illness Patient is a 67-year-old male who was recently discharged from the hospital about 2 days ago after hospitalization for acute kidney injury volume overload and acute diastolic CHF and acute hypoxic respiratory failure. Patient was significantly volume overloaded and was started on hemodialysis. Urine output had improved however patient remains significantly volume overloaded and therefore hemodialysis was continued as outpatient. Patient did make it to his first outpatient treatment and stated that he felt quite weak when he went home and he has not been able to perform activities of daily living or to get out of bed. No complaints of new fever nausea vomiting abdominal pain or diarrhea. Shortness of breath not worse Patient continues to have significant swelling in the upper and lower extremities Patient has an indwelling Barkley catheter for urine retention. Inpatient rehab has been discussed this admission. Review of Systems As per HPI Past Medical History Past Medical History: Atrial Fibrillation, Heart Failure, Diabetes Mellitus, Deep Vein Thrombosis (DVT), Hypertension, Osteoarthritis (OA), Prostate Disorder Additional Past Medical History / Comment(s): back pain, MRI scheduled for 10/28/22 History of Any Multi-Drug Resistant Organisms: None Reported Past Surgical History: Orthopedic Surgery Additional Past Surgical History / Comment(s): bilateral total hip replacement. 200705-12-16 TOTAL RIGHT HIP REPLACEMENT. RT KNEE SX. RT SHOULDER SX. COLONOSCOPY Past Anesthesia/Blood Transfusion Reactions: No Reported Reaction Past Psychological History: No Psychological Hx Reported Smoking Status: Former smoker Past Alcohol Use History: None Reported Past Drug Use History: None Reported - Past Family History Mother Family Medical History: Diabetes Mellitus Father Additional Family Medical History / Comment(s): FROM [facility] Medications and Allergies Home Medications Medication Instructions Recorded Confirmed Type atenoloL [Tenormin] 25 mg PO BID 05/08/16 03/12/23 History Alpha Lipoic Acid 1,200 mg PO BID 10/20/22 03/12/23 History Aspirin EC [Ecotrin Low Dose] 81 mg PO DAILY 10/20/22 03/12/23 History Atorvastatin [Lipitor] 40 mg PO DAILY 10/20/22 03/12/23 History Cholecalciferol [Vitamin D3 (125 125 mcg PO DAILY 10/20/22 03/12/23 History Mcg = 5000 Iu)] Magnesium 250 mg PO BID 10/20/22 03/12/23 History Tamsulosin [Flomax] 0.4 mg PO DAILY 10/20/22 03/12/23 History Rivaroxaban [Xarelto] 20 mg PO DAILY 30 Days #30 tab 10/22/22 03/12/23 Rx Vitamin B Complex 1 cap PO DAILY 02/24/23 03/12/23 History Darbepoetin Naun [Aranesp] 40 mcg SQ Q7D each 03/11/23 03/12/23 Rx Ergocalciferol [Vitamin D2 (1250 1,250 mcg PO Q7D #4 cap 03/11/23 03/12/23 Rx Mcg = 63421 Iu)] Midodrine [ProAmatine] 10 mg PO AC-TID 30 Days #180 tab 03/11/23 03/12/23 Rx Nystatin 100,000 Unit/gm Powd 1 applic TOPICAL BID PRN 30 Days 03/11/23 03/12/23 Rx [Mycostatin Powder] #1 each Thiamine [Vitamin B-1] 100 mg PO DAILY #30 tab 03/11/23 03/12/23 Rx Torsemide [Demadex] 40 mg PO DAILY 30 Days #60 tab 03/11/23 03/12/23 Rx HYDROcodone/APAP 5-325MG [[place] 1 tab PO Q6HR PRN 03/12/23 03/12/23 History 5-325] Allergies Allergy/AdvReac Type Severity Reaction Status Date / Time Penicillins Allergy Rash/Hives Verified 03/12/23 20:01 ibuprofen AdvReac BURING Verified 03/12/23 20:01 SENSATION IN ARMS Physical Exam Vitals: Vital Signs Temp Pulse Pulse Pulse Resp BP BP 03/13/23 08:36 03/13/23 07:01 98.3 F 86 18 153/84 03/13/23 02:52 80 97 03/13/23 01:44 98.2 F 91 137/77 03/12/23 23:45 90 20 105/53 03/12/23 21:00 97.8 F 89 16 113/60 03/12/23 20:12 80 16 116/51 03/12/23 19:03 90 22 90/43 Pulse Ox 03/13/23 08:36 99 03/13/23 07:01 99 03/13/23 02:52 03/13/23 01:44 96 03/12/23 23:45 96 08/17/23 21:00 92 L 03/12/23 20:12 99 03/12/23 19:03 100 Intake and Output 03/12/23 03/13/23 03/13/23 22:59 06:59 14:59 Intake Total 570 Balance 570 Intake: Intake, IV Titration 450 Amount Sodium Chloride 0.9% 1, 450 000 ml @ 75 mls/hr IV . [id number] [facility] Rx#:[id number] Oral 120 Other: Voiding Method Indwelling Catheter Indwelling Catheter Weight 113.398 kg 113.398 kg Patient is awake, comfortable, no acute distress Alert oriented 3 Examination of the heart S1 and S2 Examination of the lungs bilateral breath sounds are heard Abdomen is soft obese nontender Examination of lower extremity shows edema 3+ bilaterally there is edema noted in the upper extremities as well 3-4+ SAT [employer]UTOR exam grossly intact Results - Lab Results Most recent lab results Calcium 7.5 mg/dL (8.4-10.2) L 03/13/23 07:31 Phosphorus 5.4 mg/dL (2.5-4.5) H 03/13/23 07:31 Magnesium 1.8 mg/dL (1.6-2.3) 03/13/23 07:31 03/13/23 07:31 03/13/23 07:31 Assessment and Plan Assessment: 1. Acute kidney injury nonoliguric ATN secondary to hypotension Yves rodriguez started hemodialysis on 02/25/2023. UA from last hospitalization showed 3+ protein and large blood. Patient remains hemodialysis dependent mostly due to severe volume overload. He has an indwelling Barkley catheter. He did have urine retention d uring his admission. 2. Volume overload maintained on torsemide and hemodialysis 3. Acute diastolic CHF from last admission currently stable 4. History of acute hypoxic respiratory failure from CHF and volume overload during his last admission few days ago 5. 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 Left kidney nodule to be monitored as outpatient. 7. Generalized weakness 8. Anemia of chronic disease Plan: Hemodialysis in a.m. Continue with torsemide Continue with Barkley catheter Continue to monitor for recovery of renal function Maintain patient on Aranesp Repeat labs in a.m. Continue to hold [place]ON[place] inhibitor's and metformin. Thank you for the consultation. We will continue to follow the patient with you during his hospitalization.
[2023-03-13] MEDS: DARBEPOETIN ALFA 60 MCG/0.3 ML SYRINGE SQ SCH (12:34)
[2023-03-13] MEDS: MIDODRINE 5 MG TAB PO SCH ×2 (13:56→18:26)
[2023-03-13 14:33] VITALS: BMI 39.1
[2023-03-13 17:07] LABS: Glucose,Whole Blood 187 mg/dL (70-110)
--- NOTE | 2023-03-13 17:31 | P.HPIM ---
History of Present Illness H&P Date: 03/13/23 Chief Complaint: Weakness/acute renal failure 67-year-old male who was recently discharged from the hospital about 2 days ago after hospitalization for acute kidney injury volume overload and acute diastolic CHF and acute hypoxic respiratory failure. Patient was significantly volume overloaded and was started on hemodialysis. Urine output had improved however patient remains significantly volume overloaded and therefore hemodialysis was continued as outpatient. Patient did make it to his first outpatient treatment and stated that he felt quite weak when he went home and he has not been able to perform activities of daily living or to get out of bed. No complaints of new fever nausea vomiting abdominal pain or diarrhea. Shortness of breath not worse Patient continues to have significant swelling in the upper and lower extremities Patient has an indwelling Barkley catheter for urine retention. Review of Systems REVIEW OF SYSTEMS: CONSTITUTIONAL: No fever, no malaise, no fatigue. HEENT: No recent visual problems or hearing problems. Denied any sore throat. CARDIOVASCULAR: No chest pain, orthopnea, PND, no palpitations, no syncope. PULMONARY: No shortness of breath, no cough, no hemoptysis. GASTROINTESTINAL: No diarrhea, no nausea, no vomiting, no abdominal pain. NEUROLOGICAL: No headaches, no weakness, no numbness. HEMATOLOGICAL: Denies any bleeding or petechiae. GENITOURINARY: Denies any burning micturition, frequency, or urgency. MUSCULOSKELETAL/RHEUMATOLOGICAL: Denies any joint pain, swelling, or any muscle pain. ENDOCRINE: Denies any polyuria or polydipsia. The rest of the 14-point review of systems is negative. Past Medical History Past Medical History: Atrial Fibrillation, Heart Failure, Diabetes Mellitus, Deep Vein Thrombosis (DVT), Hypertension, Osteoarthritis (OA), Prostate Disorder Additional Past Medical History / Comment(s): back pain, MRI scheduled for 10/28/22 History of Any Multi-Drug Resistant Organisms: None Reported Past Surgical History: Orthopedic Surgery Additional Past Surgical History / Comment(s): bilateral total hip replacement. 2007 .05-12-16 TOTAL RIGHT HIP REPLACEMENT. RT KNEE SX. RT SHOULDER SX. C OLONOSCOPY Past Anesthesia/Blood Transfusion Reactions: No Reported Reaction Past Psychological History: No Psychological Hx Reported Smoking Status: Former smoker Past Alcohol Use History: None Reported Past Drug Use History: None Reported - Past Family History Mother Family Medical History: Diabetes Mellitus Father Additional Family Medical History / Comment(s): FROM SPINAL MENNINGITIS Medications and Allergies Home Medications Medication Instructions Recorded Confirmed Type atenoloL [Tenormin] 25 mg PO BID 05/08/16 03/12/23 History Alpha Lipoic Acid 1,200 mg PO BID 10/20/22 03/12/23 History Aspirin EC [Ecotrin Low Dose] 81 mg PO DAILY 10/20/22 03/12/23 History Atorvastatin [Lipitor] 40 mg PO DAILY 10/20/22 03/12/23 History Cholecalciferol [Vitamin D3 (125 125 mcg PO DAILY 10/20/22 03/12/23 History Mcg = 5000 Iu)] Magnesium 250 mg PO BID 10/20/22 03/12/23 History Tamsulosin [Flomax] 0.4 mg PO DAILY 10/20/22 03/12/23 History Rivaroxaban [Xarelto] 20 mg PO DAILY 30 Days #30 tab 10/22/22 03/12/23 Rx Vitamin B Complex 1 cap PO DAILY 02/24/23 03/12/23 History Darbepoetin Naun [Aranesp] 40 mcg SQ Q7D each 03/11/23 03/12/23 Rx Ergocalciferol [Vitamin D2 (1250 1,250 mcg PO Q7D #4 cap 03/11/23 03/12/23 Rx Mcg = 44552 Iu)] Midodrine [ProAmatine] 10 mg PO AC-TID 30 Days #180 tab 03/11/23 03/12/23 Rx Nystatin 100,000 Unit/gm Powd 1 applic TOPICAL BID PRN 30 Days 03/11/23 03/12/23 Rx [Mycostatin Powder] #1 each Thiamine [Vitamin B-1] 100 mg PO DAILY #30 tab 03/11/23 03/12/23 Rx Torsemide [Demadex] 40 mg PO DAILY 30 Days #60 tab 03/11/23 03/12/23 Rx HYDROcodone/APAP 5-325MG [[place] 1 tab PO Q6HR PRN 03/12/23 03/12/23 History 5-325] Allergies Allergy/AdvReac Type Severity Reaction Status Date / Time Penicillins Allergy Rash/Hives Verified 03/12/23 20:01 ibuprofen AdvReac BURING Verified 03/12/23 20:01 SENSATION IN ARMS Physical Exam Vitals: Vital Signs Temp Pulse Pulse Pulse Resp BP BP 03/13/23 08:36 03/13/23 07:01 98.3 F 86 18 153/84 03/13/23 02:52 80 97 03/13/23 01:44 98.2 F 91 137/77 03/12/23 23:45 90 20 105/53 03/12/23 21:00 97.8 F 89 16 113/60 03/12/23 20:12 80 16 116/51 03/12/23 19:03 90 22 90/43 Pulse Ox 03/13/23 08:36 99 03/13/23 07:01 99 03/13/23 02:52 03/13/23 01:44 96 03/12/23 23:45 96 03/12/23 21:00 92 L 03/12/23 20:12 99 03/12/23 19:03 100 Intake and Output 03/12/23 03/13/23 03/13/23 22:59 06:59 14:59 Intake Total 570 Balance 570 Intake: Intake, IV Titration 450 Amount Sodium Chloride 0.9% 1, 450 000 ml @ 75 mls/hr IV . [id number] [facility] Rx#:[id number] Oral 120 Other: Voiding Method Indwelling Catheter Indwelling Catheter Weight 113.398 kg 113.398 kg Patient is awake, comfortable, no acute distress Alert oriented 3 Examination of the heart S1 and S2 Examination of the lungs bilateral breath sounds are heard Abdomen is soft obese nontender Examination of lower extremity shows edema 3+ bilaterally there is edema noted in the upper extremities as well 3-4+ [employer] WORKER exam grossly intact Results CBC & Chem 7: 03/13/23 07:31 03/13/23 07:31 Labs: Abnormal Lab Results - Last 24 Hours (Table) 03/12/23 03/12/23 03/12/23 Range/Units 19:16 19:16 19:16 WBC 13.7 H (3.8-10.6) k/uL RBC 2.85 L (4.30-5.90) m/uL Hgb 8.9 L (13.0-17.5) gm/dL Hct 27.7 L (39.0-53.0) % Neutrophils # 11.9 H (1.3-7.7) k/uL Neutrophils # (Manual) (1.3-7.7) k/uL Lymphocytes # 0.8 L (1.0-4.8) k/uL Monocytes # (Manual) (0-1.0) k/uL Myelocytes # (Manual) (0) k/uL Sodium 131 L (137-145) mmol/L BUN (9-20) mg/dL Creatinine 2.09 H (0.66-1.25) mg/dL Glucose 123 H (74-99) mg/dL POC Glucose (mg/dL) (70-110) mg/dL Plasma Lactic Acid Juan Carlos (0.7-2.0) mmol/L Calcium 7.4 L (8.4-10.2) mg/dL Phosphorus (2.5-4.5) mg/dL Total Protein 4.8 L (6.3-8.2) g/dL Albumin 2.0 L (3.5-5.0) g/dL Urine Protein 4+ H (Negative) Urine Glucose (UA) 3+ H (Negative) Urine Blood Large H (Negative) Ur Leukocyte Esterase Large H (Negative) Urine RBC >182 H (0-5) /hpf Urine WBC >182 H (0-5) /hpf Urine WBC Clumps Many H (None) /hpf Urine Bacteria Moderate H (None) /hpf Hyaline Casts 16 H (0-2) /lpf Urine Mucus Few H (None) /hpf 03/12/23 03/13/23 03/13/23 Range/Units 19:16 06:19 07:31 WBC 12.8 H (3.8-10.6) k/uL RBC 2.60 L (4.30-5.90) m/uL Hgb 8.2 L (13.0-17.5) gm/dL Hct 24.9 L (39.0-53.0) % Neutrophils # (1.3-7.7) k/uL Neutrophils # (Manual) 10.24 H (1.3-7.7) k/uL Lymphocytes # (1.0-4.8) k/uL Monocytes # (Manual) 1.02 H (0-1.0) k/uL Myelocytes # (Manual) 0.13 H (0) k/uL Sodium (137-145) mmol/L BUN (9-20) mg/dL Creatinine (0.66-1.25) mg/dL Glucose (74-99) mg/dL POC Glucose (mg/dL) 126 H (70-110) mg/dL Plasma Lactic Acid Juan Carlos 3.6 H* (0.7-2.0) mmol/L Calcium (8.4-10.2) mg/dL Phosphorus (2.5-4.5) mg/dL Total Protein (6.3-8.2) g/dL Albumin (3.5-5.0) g/dL Urine Protein (Negative) Urine Glucose (UA) (Negative) Urine Blood (Negative) Ur Leukocyte Esterase (Negative) Urine RBC (0-5) /hpf Urine WBC (0-5) /hpf Urine WBC Clumps (None) /hpf Urine Bacteria (None) /hpf Hyaline Casts (0-2) /lpf Urine Mucus (None) /hpf 03/13/23 03/13/23 Range/Units 07:31 11:12 WBC (3.8-10.6) k/uL RBC (4.30-5.90) m/uL Hgb (13.0-17.5) gm/dL Hct (39.0-53.0) % Neutrophils # (1.3-7.7) k/uL Neutrophils # (Manual) (1.3-7.7) k/uL Lymphocytes # (1.0-4.8) k/uL Monocytes # (Manual) (0-1.0) k/uL Myelocytes # (Manual) (0) k/uL Sodium 132 L (137-145) mmol/L BUN 25 H (9-20) mg/dL Creatinine 2.46 H (0.66-1.25) mg/dL Glucose 119 H (74-99) mg/dL POC Glucose (mg/dL) 118 H (70-110) mg/dL Plasma Lactic Acid Juan Carlos (0.7-2.0) mmol/L Calcium 7.5 L (8.4-10.2) mg/dL Phosphorus 5.4 H (2.5-4.5) mg/dL Total Protein 4.3 L (6.3-8.2) g/dL Albumin 1.8 L (3.5-5.0) g/dL Urine Protein (Negative) Urine Glucose (UA) (Negative) Urine Blood (Negative) Ur Leukocyte Esterase (Negative) Urine RBC (0-5) /hpf Urine WBC (0-5) /hpf Urine WBC Clumps (None) /hpf Urine Bacteria (None) /hpf Hyaline Casts (0-2) /lpf Urine Mucus (None) /hpf Thrombosis Risk Factor Assmnt - Choose All That Apply Any of the Below Risk Factors Present?: Yes Each Factor Represents 1 point: Obesity (BMI >25) Other Risk Factors: Yes Each Risk Factor Represents 2 Points: Age 61-74 years Thrombosis Risk Factor Assessment Total Risk Factor Score: 3 Thrombosis Risk Factor Assessment Level: Moderate Risk Assessment and Plan Assessment: 1. Acute renal failure; nonoliguric; ATN secondary to hypotension - Patient was started on HD on 02/25/2023 - Nephrology on board and recommending to continue with hemodialysis given patient remains volume overloaded on torsemide and hemodialysis - Patient currently maintained on Aranesp; nephrology recommending to continue with Barkley catheter; continue to hold LATONIA inhibitors and metformin 2. Acute diastolic CHF; patient remains on torsemide; hemodialysis in a.m. per nephrology recommendations 3. UTI; ID on board and patient was placed on IV cefepime 3. Elevated IgG lambda paraprotein; follow-up with hematology 4. Generalized weakness/debility; consult PT/OT for possible rehab placement 5. Hypertension; atenolol 25 mg twice a day 6. Hyperlipidemia; Lipitor 40 mg by mouth daily at bedtime
[2023-03-13] MEDS ORDERED: VANCOMYCIN IV PER PHARMACY 1 EACH MISC MISCELLANE PRN (20:00)
[2023-03-13] MEDS: MAGNESIUM OXIDE 400 MG TAB PO SCH (20:01)
[2023-03-13] MEDS: ATORVASTATIN 40 MG TAB PO SCH (20:01)
[2023-03-13] MEDS: HYDROcodone/APAP 5-325MG 1 EACH TAB PO PRN (20:01)
[2023-03-13 20:37] LABS: Glucose,Whole Blood 164 mg/dL (70-110)
[2023-03-13] MEDS ORDERED: VANCOMYCIN 2,000 MG in SODIUM CHLORIDE 0.9% 500 ML 500 ML IVPB ONE (21:00)
--- NOTE | 2023-03-13 22:25 | P.CONS ---
History of Present Illness - Reason for Consult Consult date: 03/13/23 - History of Present Illness Patient is a 67-year-old male with a past medical history significant for type 2 diabetes mellitus hypertension hyperlipidemia atrial fibrillation with recent diagnosis of renal failure for the patient did have a dialysis catheter placement and was just discharged home yesterday patient mentioned that he did went for his dialysis afterwards the patient felt really weak tired and did have a fall unable to get up for his EMS was called and the patient was brought into the hospital patient denies any fever or any chills and no fever has been recorded during this hospital stay patient noted to have a elevated white count 13.7 with a left shift creatinine is 2.46 liver enzymes are normal urine was positive patient did receive a dose of Rocephin has been admitted to hospital infectious disease was consulted for further management of antibiotic therapy, patient was sent home with the indwelling Barkley catheter and the patient was supposed to follow-up with urologist regarding removal of this catheter. Did mention significant excoriation of his scrotal and periurethral area before the patient was discharged yesterday however they seem to have slightly improved, Barkley catheter currently with a darker center urine but no sediment and no hemorrhage dysuria denies significant flank pain nausea but no vomiting and no diarrhea Past Medical History Past Medical History: Atrial Fibrillation, Heart Failure, Diabetes Mellitus, Deep Vein Thrombosis (DVT), Hypertension, Osteoarthritis (OA), Prostate Disorder Additional Past Medical History / Comment(s): back pain, MRI scheduled for 10/28/22 History of Any Multi-Drug Resistant Organisms: None Reported Past Surgical History: Orthopedic Surgery Additional Past Surgical History / Comment(s): bilateral total hip replacement. 2007 .05-12-16 TOTAL RIGHT HIP REPLACEMENT. RT KNEE SX. RT SHOULDER SX. COLONOSCOPY Past Anesthesia/Blood Transfusion Reactions: No Reported Reaction Past Psychological History: No Psychological Hx Reported Smoking Status: Former smoker Past Alcohol Use History: None Reported Past Drug Use History: None Reported - Past Family History Mother Family Medical History: Diabetes Mellitus Father Additional Family Medical History / Comment(s): FROM SPINAL MENNINGITIS Medications and Allergies Home Medications Medication Instructions Recorded Confirmed Type atenoloL [Tenormin] 25 mg PO BID 05/08/16 03/12/23 History Alpha Lipoic Acid 1,200 mg PO BID 10/20/22 03/12/23 History Aspirin EC [Ecotrin Low Dose] 81 mg PO DAILY 10/20/22 03/12/23 History Atorvastatin [Lipitor] 40 mg PO DAILY 10/20/22 03/12/23 History Cholecalciferol [Vitamin D3 (125 125 mcg PO DAILY 10/20/22 03/12/23 History Mcg = 5000 Iu)] Magnesium 250 mg PO BID 10/20/22 03/12/23 History Tamsulosin [Flomax] 0.4 mg PO DAILY 10/20/22 03/12/23 History Rivaroxaban [Xarelto] 20 mg PO DAILY 30 Days #30 tab 10/22/22 03/12/23 Rx Vitamin B Complex 1 cap PO DAILY 02/24/23 03/12/23 History Darbepoetin Naun [Aranesp] 40 mcg SQ Q7D each 03/11/23 03/12/23 Rx Ergocalciferol [Vitamin D2 (1250 1,250 mcg PO Q7D #4 cap 03/11/23 03/12/23 Rx Mcg = 79911 Iu)] Midodrine [ProAmatine] 10 mg PO AC-TID 30 Days #180 tab 03/11/23 03/12/23 Rx Nystatin 100,000 Unit/gm Powd 1 applic TOPICAL BID PRN 30 Days 03/11/23 03/12/23 Rx [Mycostatin Powder] #1 each Thiamine [Vitamin B-1] 100 mg PO DAILY #30 tab 03/11/23 03/12/23 Rx Torsemide [Demadex] 40 mg PO DAILY 30 Days #60 tab 03/11/23 03/12/23 Rx HYDROcodone/APAP 5-325MG [[place] 1 tab PO Q6HR PRN 03/12/23 03/12/23 History 5-325] Allergies Allergy/AdvReac Type Severity Reaction Status Date / Time Penicillins Allergy Rash/Hives Verified 03/12/23 20:01 ibuprofen AdvReac BURING Verified 03/12/23 20:01 SENSATION IN ARMS Physical Exam Vitals: Vital Signs Temp Pulse Pulse Pulse Resp BP BP 03/13/23 08:36 03/13/23 07:01 98.3 F 86 18 153/84 03/13/23 02:52 80 97 03/13/23 01:44 98.2 F 91 137/77 08/17/23 23:45 90 20 105/53 08/17/23 21:00 97.8 F 89 16 113/60 03/12/23 20:12 80 16 116/51 03/12/23 19:03 90 22 90/43 Pulse Ox 03/13/23 08:36 99 03/13/23 07:01 99 03/13/23 02:52 03/13/23 01:44 96 03/12/23 23:45 96 03/12/23 21:00 92 L 03/12/23 20:12 99 03/12/23 19:03 100 Intake and Output 03/12/23 03/13/23 03/13/23 22:59 06:59 14:59 Intake Total 570 Balance 570 Intake: Intake, IV Titration 450 Amount Sodium Chloride 0.9% 1, 450 000 ml @ 75 mls/hr IV . [id number] [facility] Rx#:[id number] Oral 120 Other: Voiding Method Indwelling Catheter Indwelling Catheter Weight 113.398 kg 113.398 kg Results CBC & Chem 7: 03/13/23 07:31 03/13/23 07:31 Labs: Abnormal Lab Results - Last 24 Hours (Table) 03/12/23 03/12/23 03/12/23 Range/Units 19:16 19:16 19:16 WBC 13.7 H (3.8-10.6) k/uL RBC 2.85 L (4.30-5.90) m/uL Hgb 8.9 L (13.0-17.5) gm/dL Hct 27.7 L (39.0-53.0) % Neutrophils # 11.9 H (1.3-7.7) k/uL Neutrophils # (Manual) (1.3-7.7) k/uL Lymphocytes # 0.8 L (1.0-4.8) k/uL Monocytes # (Manual) (0-1.0) k/uL Myelocytes # (Manual) (0) k/uL Sodium 131 L (137-145) mmol/L BUN (9-20) mg/dL Creatinine 2.09 H (0.66-1.25) mg/dL Glucose 123 H (74-99) mg/dL POC Glucose (mg/dL) (70-110) mg/dL Plasma Lactic Acid Juan Carlos (0.7-2.0) mmol/L Calcium 7.4 L (8.4-10.2) mg/dL Phosphorus (2.5-4.5) mg/dL Total Protein 4.8 L (6.3-8.2) g/dL Albumin 2.0 L (3.5-5.0) g/dL Urine Protein 4+ H (Negative) Urine Glucose (UA) 3+ H (Negative) Urine Blood Large H (Negative) Ur Leukocyte Esterase Large H (Negative) Urine RBC >182 H (0-5) /hpf Urine WBC >182 H (0-5) /hpf Urine WBC Clumps Many H (None) /hpf Urine Bacteria Moderate H (None) /hpf Hyaline Casts 16 H (0-2) /lpf Urine Mucus Few H (None) /hpf 03/12/23 03/13/23 03/13/23 Range/Units 19:16 06:19 07:31 WBC 12.8 H (3.8-10.6) k/uL RBC 2.60 L (4.30-5.90) m/uL Hgb 8.2 L (13.0-17.5) gm/dL Hct 24.9 L (39.0-53.0) % Neutrophils # (1.3-7.7) k/uL Neutrophils # (Manual) 10.24 H (1.3-7.7) k/uL Lymphocytes # (1.0-4.8) k/uL Monocytes # (Manual) 1.02 H (0-1.0) k/uL Myelocytes # (Manual) 0.13 H (0) k/uL Sodium (137-145) mmol/L BUN (9-20) mg/dL Creatinine (0.66-1.25) mg/dL Glucose (74-99) mg/dL POC Glucose (mg/dL) 126 H (70-110) mg/dL Plasma Lactic Acid Juan Carlos 3.6 H* (0.7-2.0) mmol/L Calcium (8.4-10.2) mg/dL Phosphorus (2.5-4.5) mg/dL Total Protein (6.3-8.2) g/dL Albumin (3.5-5.0) g/dL Urine Protein (Negative) Urine Glucose (UA) (Negative) Urine Blood (Negative) Ur Leukocyte Esterase (Negative) Urine RBC (0-5) /hpf Urine WBC (0-5) /hpf Urine WBC Clumps (None) /hpf Urine Bacteria (None) /hpf Hyaline Casts (0-2) /lpf Urine Mucus (None) /hpf 03/13/23 Range/Units 07:31 WBC (3.8-10.6) k/uL RBC (4.30-5.90) m/uL Hgb (13.0-17.5) gm/dL Hct (39.0-53.0) % Neutrophils # (1.3-7.7) k/uL Neutrophils # (Manual) (1.3-7.7) k/uL Lymphocytes # (1.0-4.8) k/uL Monocytes # (Manual) (0-1.0) k/uL Myelocytes # (Manual) (0) k/uL Sodium 132 L (137-145) mmol/L BUN 25 H (9-20) mg/dL Creatinine 2.46 H (0.66-1.25) mg/dL Glucose 119 H (74-99) mg/dL POC Glucose (mg/dL) (70-110) mg/dL Plasma Lactic Acid Juan Carlos (0.7-2.0) mmol/L Calcium 7.5 L (8.4-10.2) mg/dL Phosphorus 5.4 H (2.5-4.5) mg/dL Total Protein 4.3 L (6.3-8.2) g/dL Albumin 1.8 L (3.5-5.0) g/dL Urine Protein (Negative) Urine Glucose (UA) (Negative) Urine Blood (Negative) Ur Leukocyte Esterase (Negative) Urine RBC (0-5) /hpf Urine WBC (0-5) /hpf Urine WBC Clumps (None) /hpf Urine Bacteria (None) /hpf Hyaline Casts (0-2) /lpf Urine Mucus (None) /hpf Assessment and Plan Plan: 1patient present to hospital with weakness fall did have elevated white count source is likely multifactorial patient did have a positive UA and a question of possible Barkley catheter associated UTI likely from enteric gram-negative pathogen keeping in mind the patient was recently hospitalized will need to cov er for the resistant gram-negative. 2nursing staff has been advised to remove his Barkley catheter and if the patient has any signs of retention to reinsert the Barkley. 3we will discontinue Rocephin. 4start patient cefepime dosages to the kidney function while waiting for the culture to finalize. We will follow on clinical condition and cultures to further adjust medication if needed Thank you for this consultation we will follow the patient along with you Dictation was produced using [employer] dictation software. please excuse any grammatical, word or spelling errors. Time with Patient: Greater than 30
[2023-03-14] MEDS: MORPHINE SULFATE 4 MG/ML SYRINGE IV PRN ×5 (01:20→21:16)
[2023-03-14] MEDS: HYDROcodone/APAP 5-325MG 1 EACH TAB PO PRN ×4 (02:42→23:25)
[2023-03-14 06:18] LABS: Glucose,Whole Blood 155 mg/dL (70-110)
[2023-03-14] MEDS: MIDODRINE 5 MG TAB PO SCH ×3 (06:53→15:19)
[2023-03-14] MEDS: THIAMINE 100 MG TAB PO SCH (08:54)
[2023-03-14] MEDS: CHOLECALCIFEROL 125 MCG (5000 IU) TABLET PO SCH (08:54)
[2023-03-14] MEDS: MAGNESIUM OXIDE 400 MG TAB PO SCH ×2 (08:54→21:16)
[2023-03-14] MEDS: TAMSULOSIN 0.4 MG CAP.ER.24H PO SCH (08:54)
[2023-03-14] MEDS: ASPIRIN 81 MG PO SCH (08:54)
[2023-03-14] MEDS: ATORVASTATIN 40 MG TAB PO SCH (08:54)
[2023-03-14] MEDS: CEFEPIME 1 GM in SODIUM CHLORIDE 0.9% 50 ML IVPB SCH (08:55)
[2023-03-14] MEDS: RIVAROXABAN 20 MG TAB PO SCH (08:55)
[2023-03-14] MEDS: TORSEMIDE 20 MG TAB PO SCH (08:55)
[2023-03-14 08:56] LABS: African American GFR (CKD) 20 (>60 ml/min/1.73 sqM); Non-African American GFR(CKD) 17 (>60 ml/min/1.73 sqM)
[2023-03-14] MEDS: atenoloL 25 MG TAB PO SCH ×2 (08:57→21:16)
[2023-03-14 11:14] LABS: Glucose,Whole Blood 130 mg/dL (70-110)
--- NOTE | 2023-03-14 12:53 | P.PN ---
Subjective Patient is seen in follow-up for acute kidney injury, hemodialysis dependent. Currently sitting up in chair. Urine output about 400 mL since admission. Barkley catheter removed. On antibiotics for group D enterococcus bacteremia. Hemodynamically stable. No vomiting or diarrhea. On nasal cannula. Vital signs are stable. General: No acute distress. HEENT: Head exam is unremarkable. On nasal cannula. LUNGS: Scattered rhonchi. HEART: Rate and Rhythm are regular. ABDOMEN: Nontender. EXTREMITITES: 2+ edema. Objective - Vital Signs Vital signs: Vital Signs Temp 97.7 F 03/14/23 06:53 Pulse 65 03/14/23 06:53 Resp 18 03/14/23 06:53 BP 108/49 03/14/23 06:53 Pulse Ox 98 03/14/23 07:46 FiO2 Intake & Output 03/13/23 03/14/23 03/14/23 18:59 06:59 18:59 Output Total 250 150 Balance -250 -150 Weight 113.398 kg Output: Urine 250 150 Uretheral (Barkley) 150 Other: Voiding Method Indwelling Catheter - Labs CBC & Chem 7: 03/13/23 07:31 03/14/23 08:01 Labs: Abnormal Lab Results - Last 24 Hours (Table) 03/13/23 03/13/23 03/14/23 Range/Units 17:05 20:36 06:16 Creatinine (0.66-1.25) mg/dL POC Glucose (mg/dL) 187 H 164 H 155 H (70-110) mg/dL 03/14/23 03/14/23 Range/Units 08:01 11:13 Creatinine 3.42 H (0.66-1.25) mg/dL POC Glucose (mg/dL) 130 H (70-110) mg/dL Microbiology - Last 24 Hours (Table) 03/12/23 21:40 Blood Culture Gram Stain - Preliminary Blood Blood Culture - Preliminary Group D Enterococcus 03/12/23 21:53 Blood Culture Gram Stain - Preliminary Blood Blood Culture - Preliminary Group D Enterococcus Assessment and Plan Plan: Assessment: 1. Acute kidney injury secondary to ATN secondary to cardiorenal syndrome, hypotension started on hemodialysis 02/25/2023. Baseline creatinine near 1 from September 2022. Serologies negative except for serum immunofixation which was pos itive for IgG lambda paraprotein and was seen by hematology last visit. No hydronephrosis noted on kidney ultrasound done 02/25/2023. 2. Acute on chronic diastolic CHF. 3. Volume overload. 4. Anemia. Rule out iron deficiency. 5. Group D enterococcus bacteremia. Likely urinary source. ID following. Plan: Hemodialysis today with goal 2-3 L ultrafiltration. Draw blood cultures from permacath. Check iron studies. Phosphorus level 5.4 dated 03/13/2023. Monitor for renal recovery. Maintain torsemide. Monitor vancomycin levels. Dose to be adjusted for renal function. Kidney biopsy discussed with patient for definitive diagnosis. Patient wants to hold off at this time.
[2023-03-14] MEDS ORDERED: VANCOMYCIN 2,000 MG in SODIUM CHLORIDE 0.9% 500 ML 500 ML IVPB ONE (16:00)
[2023-03-14 16:55] LABS: Glucose,Whole Blood 160 mg/dL (70-110)
--- NOTE | 2023-03-14 18:25 | P.PN ---
Subjective Progress Note Date: 03/14/23 67-year-old male who was recently discharged from the hospital about 2 days ago after hospitalization for acute kidney injury volume overload and acute diastolic CHF and acute hypoxic respiratory failure. Patient was significantly volume overloaded and was started on hemodialysis. Urine output had improved however patient remains significantly volume overloaded and therefore hemodialysis was continued as outpatient. Patient did make it to his first outpatient treatment and stated that he felt quite weak when he went home and he has not been able to perform activities of daily living or to get out of bed. No complaints of new fever nausea vomiting abdominal pain or diarrhea. Shortness of breath not worse Patient continues to have significant swelling in the upper and lower extremities Patient has an indwelling Barkley catheter for urine retention. Objective - Vital Signs Vital signs: Vital Signs Temp 97.7 F 03/14/23 06:53 Pulse 65 03/14/23 06:53 Resp 18 03/14/23 06:53 BP 108/49 03/14/23 06:53 Pulse Ox 98 03/14/23 07:46 FiO2 Intake & Output 03/13/23 03/14/23 03/14/23 18:59 06:59 18:59 Output Total 250 150 Balance -250 -150 Weight 113.398 kg Output: Urine 250 150 Uretheral (Barkley) 150 Other: Voiding Method Indwelling Catheter - Exam Patient is awake, comfortable, no acute distress Alert oriented 3 Examination of the heart S1 and S2 Examination of the lungs bilateral breath sounds are heard Abdomen is soft obese nontender Examination of lower extremity shows edema 3+ bilaterally there is edema noted in the upper extremities as well 3-4+ [employer]ING [employer]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 Acute renal failure; nonoliguric; ATN secondary to hypotension - Patient was started on HD on 02/25/2023 - Nephrology on board and recommending to continue with hemodialysis given patient remains volume overloaded on torsemide and hemodialysis - Patient currently maintained on Aranesp; nephrology recommending to continue with Barkley catheter; continue to hold LATONIA inhibitors and metformin 2. Acute diastolic CHF; patient remains on torsemide; hemodialysis in a.m. per nephrology recommendations 3. UTI; ID on board and patient was placed on IV cefepime 3. Elevated IgG lambda paraprotein; follow-up with hematology 4. Generalized weakness/debility; consult PT/OT for possible rehab placement 5. Hypertension; atenolol 25 mg twice a day 6. Hyperlipidemia; Lipitor 40 mg by mouth daily at bedtime
[2023-03-14 20:34] LABS: Glucose,Whole Blood 171 mg/dL (70-110)
[2023-03-14 23:46] LABS: African American GFR (CKD) 30 (>60 ml/min/1.73 sqM); Anion Gap 5 mmol/L; Blood Urea Nitrogen 21 mg/dL (9-20); Calcium 6.9 mg/dL (8.4-10.2); Carbon Dioxide 24 mmol/L (22-30); Chloride 102 mmol/L (98-107); Glucose 157 mg/dL (74-99); Non-African American GFR(CKD) 26 (>60 ml/min/1.73 sqM); Potassium 3.9 mmol/L (3.5-5.1); Sodium 131 mmol/L (137-145)
[2023-03-15] MEDS: MORPHINE SULFATE 4 MG/ML SYRINGE IV PRN ×4 (01:26→16:25)
[2023-03-15] MEDS: HYDROcodone/APAP 5-325MG 1 EACH TAB PO PRN ×3 (05:22→20:03)
[2023-03-15 05:52] LABS: Glucose,Whole Blood 138 mg/dL (70-110)
[2023-03-15] MEDS: MIDODRINE 5 MG TAB PO SCH ×3 (06:09→16:25)
[2023-03-15] MEDS: CHOLECALCIFEROL 125 MCG (5000 IU) TABLET PO SCH (07:51)
[2023-03-15] MEDS: CEFEPIME 1 GM in SODIUM CHLORIDE 0.9% 50 ML IVPB SCH (07:51)
[2023-03-15] MEDS: MAGNESIUM OXIDE 400 MG TAB PO SCH ×2 (07:51→20:03)
[2023-03-15] MEDS: RIVAROXABAN 20 MG TAB PO SCH (07:51)
[2023-03-15] MEDS: atenoloL 25 MG TAB PO SCH ×2 (07:52→20:03)
[2023-03-15] MEDS: TAMSULOSIN 0.4 MG CAP.ER.24H PO SCH (07:52)
[2023-03-15] MEDS: ATORVASTATIN 40 MG TAB PO SCH (07:52)
[2023-03-15] MEDS: ASPIRIN 81 MG PO SCH (07:52)
[2023-03-15] MEDS: TORSEMIDE 20 MG TAB PO SCH (07:52)
[2023-03-15] MEDS: THIAMINE 100 MG TAB PO SCH (07:52)
[2023-03-15 10:35] LABS: % Iron Saturation 13.22 (15.00-50.00)
--- NOTE | 2023-03-15 11:26 | P.PN ---
Subjective Patient is seen in follow-up for acute kidney injury, hemodialysis dependent. Currently sitting up in chair. Urine output about 400 mL in 24 hours. Barkley catheter removed. No evidence of retention. On antibiotics for group D enterococcus bacteremia. Hemodynamically stable. No vomiting or diarrhea. On nasal cannula. Vital signs are stable. General: No acute distress. HEENT: Head exam is unremarkable. On nasal cannula. LUNGS: Scattered rhonchi. HEART: Rate and Rhythm are regular. ABDOMEN: Nontender. EXTREMITITES: 2+ edema. Objective - Vital Signs Vital signs: Vital Signs Temp 98.0 F 03/15/23 07:23 Pulse 69 03/15/23 07:23 Resp 16 03/15/23 07:23 BP 138/69 03/15/23 07:23 Pulse Ox 100 03/15/23 07:23 FiO2 Intake & Output 03/14/23 03/15/23 03/15/23 18:59 06:59 18:59 Intake Total 500 Output Total 3100 100 Balance -2600 -100 Intake: Hemodialysis 500 Output: Urine 100 100 Hemodialysis 3000 - Labs CBC & Chem 7: 03/13/23 07:31 03/14/23 23:20 Labs: Abnormal Lab Results - Last 24 Hours (Table) 03/14/23 03/14/23 03/14/23 Range/Units 16:53 20:32 23:20 Sodium 131 L (137-145) mmol/L BUN 21 H (9-20) mg/dL Creatinine 2.44 H (0.66-1.25) mg/dL Glucose 157 H (74-99) mg/dL POC Glucose (mg/dL) 160 H 171 H (70-110) mg/dL Calcium 6.9 L (8.4-10.2) mg/dL Iron (65-175) UG/DL TIBC (228-460) UG/DL % Saturation (15.00-50.00) Transferrin (204.0-354.0) mg/dL Ferritin (22.0-322.0) ng/mL 03/14/23 03/15/23 Range/Units 23:20 05:50 Sodium (137-145) mmol/L BUN (9-20) mg/dL Creatinine (0.66-1.25) mg/dL Glucose (74-99) mg/dL POC Glucose (mg/dL) 138 H (70-110) mg/dL Calcium (8.4-10.2) mg/dL Iron 16 L (65-175) UG/DL TIBC 121 L (228-460) UG/DL % Saturation 13.22 L (15.00-50.00) Transferrin 86.4 L (204.0-354.0) mg/dL Ferritin 909.0 H (22.0-322.0) ng/mL Microbiology - Last 24 Hours (Table) 03/12/23 21:40 Blood Culture Gram Stain - Preliminary Blood Blood Culture - Preliminary Group D Enterococcus 03/12/23 21:53 Blood Culture Gram Stain - Preliminary Blood Blood Culture - Preliminary Group D Enterococcus Assessment and Plan Plan: Assessment: 1. Acute kidney injury secondary to ATN secondary to cardiorenal syndrome, hypotension started on hemodialysis 02/25/2023. Maintained on Thursday schedule outpatient. Baseline creatinine near 1 from September 2022. 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 No hydronephrosis noted on kidney ultrasound done 02/25/2023. 2. Acute on chronic diastolic CHF. 3. Volume overload. 4. Anemia. Iron deficiency noted. On Aranesp. 5. Group D enterococcus bacteremia. Likely urinary source. ID following. Plan: Hemodialysis tomorrow with goal 3 L ultrafiltration. Add IV iron. Phosphorus level 5.4 dated 03/13/2023. Monitor for renal recovery. Maintain torsemide. Monitor vancomycin levels. Dose to be adjusted for renal function. Kidney biopsy discussed with patient for definitive diagnosis. Patient wants to hold off at this time.
--- NOTE | 2023-03-15 11:35 | P.PN ---
Subjective Progress Note Date: 03/14/23 Principal diagnosis: Catheter associated UTI and bacteremia Patient is a 67-year-old male with a past medical history significant for type 2 diabetes mellitus hypertension hyperlipidemia atrial fibrillation with recent diagnosis of renal failure for the patient did have a dialysis catheter placement, presented to hospital with weakness patient noticed to have elevated white count positive UA concerning for catheter since UTI. Patient blood culture subsequently came back positive with Enterococcus. On today's evaluation that is 03/14/2023 the patient denies having any fever or any chills, the patient is breathing comfortably currently on a 5 L nasal cannula oxygen but denies any chest pain no cough no abdominal pain or diarrhea the patient Barkley catheter was discontinued the patient is able to urinate Patient did have a creatinine of 2.44, white count was 12.8 as of yesterday no CBC was done today blood culture with group D Enterococcus sensitivities pending Objective - Vital Signs Vital signs: Vital Signs Temp 97.7 F 03/14/23 06:53 Pulse 65 03/14/23 06:53 Resp 18 03/14/23 06:53 BP 108/49 03/14/23 06:53 Pulse Ox 98 03/14/23 07:46 FiO2 Intake & Output 03/13/23 03/14/23 03/14/23 18:59 06:59 18:59 Output Total 250 150 Balance -250 -150 Weight 113.398 kg Output: Urine 250 150 Uretheral (Barkley) 150 Other: Voiding Method Indwelling Catheter - Exam GENERAL DESCRIPTION: An elderly male lying in bed in no distress RESPIRATORY SYSTEM: Unlabored breathing , decreased breath sounds at bases HEART: S1 S2 regular rate and rhythm , ABDOMEN: Soft , no tenderness EXTREMITIES: No edema feet - Labs CBC & Chem 7: 03/13/23 07:31 03/14/23 23:20 Labs: Abnormal Lab Results - Last 24 Hours (Table) 03/13/23 03/13/23 03/13/23 Range/Units 07:31 11:12 17:05 Neutrophils # (Manual) 10.24 H (1.3-7.7) k/uL Monocytes # (Manual) 1.02 H (0-1.0) k/uL Myelocytes # (Manual) 0.13 H (0) k/uL Creatinine (0.66-1.25) mg/dL POC Glucose (mg/dL) 118 H 187 H (70-110) mg/dL 03/13/23 03/14/23 03/14/23 Range/Units 20:36 06:16 08:01 Neutrophils # (Manual) (1.3-7.7) k/uL Monocytes # (Manual) (0-1.0) k/uL Myelocytes # (Manual) (0) k/uL Creatinine 3.42 H (0.66-1.25) mg/dL POC Glucose (mg/dL) 164 H 155 H (70-110) mg/dL Microbiology - Last 24 Hours (Table) 03/12/23 21:40 Blood Culture Gram Stain - Preliminary Blood 03/12/23 21:53 Blood Culture Gram Stain - Preliminary Blood Assessment and Plan Plan: 1patient present to hospital with weakness fall did have elevated white count source is likely multifactorial patient did have a positive UA and a question of possible Barkley catheter associated UTI likely from enteric gram-negative pathogen keeping in mind the patient was recently hospitalized will need to cover for the resistant gram-negative. 2the patient Barkley catheter has been removed and the patient seem to be able to urinate without any difficulty no need for replacement of the Barkley catheter patient to continue with the cefepime while waiting for urine culture to be finalized. 3patient with a positive blood culture with group D Enterococcus questionably related to the permacatheter blood cultures will be repeated from the permacatheter today, continue with the vancomycin pharmacy to dose Dictation was produced using [employer] software. please excuse any grammatical, word or spelling errors.
[2023-03-15 11:50] LABS: Glucose,Whole Blood 170 mg/dL (70-110)
[2023-03-15] MEDS: SODIUM FERRIC GLUCONAT-SUCROSE 125 MG in SODIUM CHLORIDE 0.9% 100 ML IVPB SCH (12:01)
[2023-03-15 16:44] LABS: Glucose,Whole Blood 128 mg/dL (70-110)
[2023-03-15 18:04] LABS: Basophils % (A) 0 %; Eosinophils # (A) 0.4 k/uL (0-0.7); Eosinophils % (A) 3 %; HCT 25.4 % (39.0-53.0); HGB 7.7 gm/dL (13.0-17.5); Hypochromasia Marked; Lymphocytes # (A) 1.6 k/uL (1.0-4.8); Lymphocytes % (A) 13 %; MCH 30.3 pg (25.0-35.0); MCHC 30.2 g/dL (31.0-37.0); MCV 100.3 fL (80.0-100.0); Macrocytosis Slight; Mean Platelet Volume 7.3; Monocytes # (A) 0.9 k/uL (0-1.0); Monocytes % (A) 8 %; Neutrophils # (A) 9.2 k/uL (1.3-7.7); Neutrophils % (A) 75 %; Platelet Count 423 k/uL (150-450); RBC 2.53 m/uL (4.30-5.90); RDW 15.3 % (11.5-15.5); WBC 12.2 k/uL (3.8-10.6)
[2023-03-15 18:43] LABS: African American GFR (CKD) 21 (>60 ml/min/1.73 sqM); Anion Gap 5 mmol/L; Blood Urea Nitrogen 26 mg/dL (9-20); Carbon Dioxide 27 mmol/L (22-30); Chloride 100 mmol/L (98-107); Glucose 130 mg/dL (74-99); Non-African American GFR(CKD) 18 (>60 ml/min/1.73 sqM); Sodium 132 mmol/L (137-145)
[2023-03-15 19:22] LABS: Calcium 9.5 mg/dL (8.4-10.2); Potassium 3.8 mmol/L (3.5-5.1)
[2023-03-15 20:36] LABS: Glucose,Whole Blood 132 mg/dL (70-110)
--- NOTE | 2023-03-15 20:54 | P.PN ---
Subjective Progress Note Date: 03/15/23 67-year-old male who was recently discharged from the hospital about 2 days ago after hospitalization for acute kidney injury volume overload and acute diastolic CHF and acute hypoxic respiratory failure. Patient was significantly volume overloaded and was started on hemodialysis. Urine output had improved however patient remains significantly volume overloaded and therefore hemodialysis was continued as outpatient. Patient did make it to his first outpatient treatment and stated that he felt quite weak when he went home and he has not been able to perform activities of daily living or to get out of bed. No complaints of new fever nausea vomiting abdominal pain or diarrhea. Shortness of breath not worse Patient continues to have significant swelling in the upper and lower extremities Patient has an indwelling Barkley catheter for urine retention. 03/15/2023 Patient is seen and evaluated sitting up in bedside chair Patient is admitted with acute kidney injury, hemodialysis dependent. Currently sitting up in chair. Urine output about 400 mL in 24 hours. Barkley catheter removed. No evidence of retention. -- On antibiotics for group D enterococcus bacteremia. in form of IV Cefepime and Vancomycin; ID on board; final culture and sensitivity is pending. Objective - Vital Signs Vital signs: Vital Signs Temp 98.0 F 03/15/23 07:23 Pulse 69 03/15/23 07:23 Resp 16 03/15/23 07:23 BP 138/69 03/15/23 07:23 Pulse Ox 100 03/15/23 07:23 FiO2 Intake & Output 03/14/23 03/15/23 03/15/23 18:59 06:59 18:59 Intake Total 500 Output Total 3100 100 Balance -2600 -100 Intake: Hemodialysis 500 Output: Urine 100 100 Hemodialysis 3000 - Exam Patient is awake, comfortable, no acute distress Alert oriented 3 Examination of the heart S1 and S2 Examination of the lungs bilateral breath sounds are heard Abdomen is soft obese nontender Examination of lower extremity shows edema 3+ bilaterally there is edema noted in the upper extremities as well 3-4+ SIDE STITCHER exam grossly intact - Labs CBC & Chem 7: 03/15/23 16:20 03/15/23 16:20 Labs: Abnormal Lab Results - Last 24 Hours (Table) 03/14/23 03/14/23 03/14/23 Range/Units 11:13 16:53 20:32 Sodium (137-145) mmol/L BUN (9-20) mg/dL Creatinine (0.66-1.25) mg/dL Glucose (74-99) mg/dL POC Glucose (mg/dL) 130 H 160 H 171 H (70-110) mg/dL Calcium (8.4-10.2) mg/dL Iron (65-175) UG/DL TIBC (228-460) UG/DL % Saturation (15.00-50.00) Transferrin (204.0-354.0) mg/dL 03/14/23 03/14/23 03/15/23 Range/Units 23:20 23:20 05:50 Sodium 131 L (137-145) mmol/L BUN 21 H (9-20) mg/dL Creatinine 2.44 H (0.66-1.25) mg/dL Glucose 157 H (74-99) mg/dL POC Glucose (mg/dL) 138 H (70-110) mg/dL Calcium 6.9 L (8.4-10.2) mg/dL Iron 16 L (65-175) UG/DL TIBC 121 L (228-460) UG/DL % Saturation 13.22 L (15.00-50.00) Transferrin 86.4 L (204.0-354.0) mg/dL Microbiology - Last 24 Hours (Table) 03/12/23 21:40 Blood Culture Gram Stain - Preliminary Blood Blood Culture - Preliminary Group D Enterococcus 03/12/23 21:53 Blood Culture Gram Stain - Preliminary Blood Blood Culture - Preliminary Group D Enterococcus Assessment and Plan Assessment: 1. Acute renal failure; nonoliguric; ATN secondary to hypotension - Patient was started on HD on 02/25/2023 - Nephrology on board and recommending to continue with hemodialysis given patient remains volume overloaded on torsemide and hemodialysis - Patient currently maintained on Aranesp; nephrology recommending to continue with Barkley catheter; continue to hold LATONIA inhibitors and metformin 2. Acute diastolic CHF; patient remains on torsemide; hemodialysis in a.m. per nephrology recommendations 3. UTI; ID on board and patient was placed on IV cefepime 3. Elevated IgG lambda paraprotein; follow-up with hematology 4. Generalized weakness/debility; consult PT/OT for possible rehab placement 5. Hypertension; atenolol 25 mg twice a day 6. Hyperlipidemia; Lipitor 40 mg by mouth daily at bedtime
[2023-03-15] MEDS ORDERED: VANCOMYCIN 1,750 MG in SODIUM CHLORIDE 0.9% 500 ML 500 ML IVPB ONE (22:00)
[2023-03-16] MEDS: HYDROcodone/APAP 5-325MG 1 EACH TAB PO PRN ×3 (02:12→20:39)
[2023-03-16 06:10] LABS: Glucose,Whole Blood 130 mg/dL (70-110)
[2023-03-16] MEDS: MIDODRINE 5 MG TAB PO SCH ×3 (06:34→17:27)
[2023-03-16 07:39] LABS: Basophils % (A) 0 %; Eosinophils # (A) 0.5 k/uL (0-0.7); Eosinophils % (A) 4 %; HCT 25.2 % (39.0-53.0); Hypochromasia Moderate; Lymphocytes # (A) 1.6 k/uL (1.0-4.8); Lymphocytes % (A) 12 %; MCH 30.8 pg (25.0-35.0); MCHC 31.9 g/dL (31.0-37.0); MCV 96.4 fL (80.0-100.0); Mean Platelet Volume 8.9; Monocytes # (A) 0.9 k/uL (0-1.0); Monocytes % (A) 7 %; Neutrophils # (A) 9.7 k/uL (1.3-7.7); Neutrophils % (A) 75 %; Platelet Count 388 k/uL (150-450); Poikilocytosis Slight; RBC 2.61 m/uL (4.30-5.90); RDW 15.6 % (11.5-15.5); WBC 13.1 k/uL (3.8-10.6)
[2023-03-16 07:48] LABS: African American GFR (CKD) 20 (>60 ml/min/1.73 sqM); Blood Urea Nitrogen 28 mg/dL (9-20); Calcium 7.4 mg/dL (8.4-10.2); Carbon Dioxide 28 mmol/L (22-30); Glucose 116 mg/dL (74-99); Magnesium 1.9 mg/dL (1.6-2.3); Non-African American GFR(CKD) 17 (>60 ml/min/1.73 sqM)
[2023-03-16 07:57] LABS: Anion Gap 3 mmol/L; Chloride 99 mmol/L (98-107); Potassium 4.3 mmol/L (3.5-5.1); Sodium 130 mmol/L (137-145)
[2023-03-16] MEDS: ASPIRIN 81 MG PO SCH (08:13)
[2023-03-16] MEDS: TAMSULOSIN 0.4 MG CAP.ER.24H PO SCH (08:13)
[2023-03-16] MEDS: CHOLECALCIFEROL 125 MCG (5000 IU) TABLET PO SCH (08:13)
[2023-03-16] MEDS: MAGNESIUM OXIDE 400 MG TAB PO SCH ×2 (08:13→20:39)
[2023-03-16] MEDS: THIAMINE 100 MG TAB PO SCH (08:13)
[2023-03-16] MEDS: ATORVASTATIN 40 MG TAB PO SCH (08:13)
[2023-03-16] MEDS: RIVAROXABAN 20 MG TAB PO SCH (08:13)
[2023-03-16] MEDS: atenoloL 25 MG TAB PO SCH ×2 (08:13→20:39)
[2023-03-16] MEDS: TORSEMIDE 20 MG TAB PO SCH (08:14)
--- NOTE | 2023-03-16 08:23 | P.PN ---
Subjective Progress Note Date: 03/15/23 Principal diagnosis: Catheter associated UTI and bacteremia Patient is a 67-year-old male with a past medical history significant for type 2 diabetes mellitus hypertension hyperlipidemia atrial fibrillation with recent diagnosis of renal failure for the patient did have a dialysis catheter placement, presented to hospital with weakness patient noticed to have elevated white count positive UA concerning for catheter since UTI. Patient blood culture subsequently came back positive with Enterococcus. On today's evaluation that is 03/15/2023 the patient remains to be afebrile, the patient is breathing comfortably on 5 L nasal cannula oxygen. Denies having any chest pain no significant cough or sputum production no nausea vomiting no abdominal pain no diarrhea. Patient white count 4.2 creatinine 3.31 blood cultures with Enterococcus faecalis sensitivities pending, blood cultures obtained from the dialysis catheter currently pending Objective - Vital Signs Vital signs: Vital Signs Temp 98.0 F 03/15/23 07:23 Pulse 69 03/15/23 07:23 Resp 16 03/15/23 07:23 BP 138/69 03/15/23 07:23 Pulse Ox 100 03/15/23 07:23 FiO2 Intake & Output 03/14/23 03/15/23 03/15/23 18:59 06:59 18:59 Intake Total 500 Output Total 3100 100 Balance -2600 -100 Intake: Hemodialysis 500 Output: Urine 100 100 Hemodialysis 3000 - Exam GENERAL DESCRIPTION: An elderly male lying in bed in no distress RESPIRATORY SYSTEM: Unlabored breathing , decreased breath sounds at bases HEART: S1 S2 regular rate and rhythm , ABDOMEN: Soft , no tenderness EXTREMITIES: No edema feet - Labs CBC & Chem 7: 03/16/23 06:21 03/16/23 06:21 Labs: Abnormal Lab Results - Last 24 Hours (Table) 03/14/23 03/14/23 03/14/23 Range/Units 16:53 20:32 23:20 Sodium 131 L (137-145) mmol/L BUN 21 H (9-20) mg/dL Creatinine 2.44 H (0.66-1.25) mg/dL Glucose 157 H (74-99) mg/dL POC Glucose (mg/dL) 160 H 171 H (70-110) mg/dL Calcium 6.9 L (8.4-10.2) mg/dL Iron (65-175) UG/DL TIBC (228-460) UG/DL % Saturation (15.00-50.00) Transferrin (204.0-354.0) mg/dL Ferritin (22.0-322.0) ng/mL 03/14/23 03/15/23 Range/Units 23:20 05:50 Sodium (137-145) mmol/L BUN (9-20) mg/dL Creatinine (0.66-1.25) mg/dL Glucose (74-99) mg/dL POC Glucose (mg/dL) 138 H (70-110) mg/dL Calcium (8.4-10.2) mg/dL Iron 16 L (65-175) UG/DL TIBC 121 L (228-460) UG/DL % Saturation 13.22 L (15.00-50.00) Transferrin 86.4 L (204.0-354.0) mg/dL Ferritin 909.0 H (22.0-322.0) ng/mL Microbiology - Last 24 Hours (Table) 03/12/23 21:40 Blood Culture Gram Stain - Preliminary Blood Blood Culture - Preliminary Group D Enterococcus 03/12/23 21:53 Blood Culture Gram Stain - Preliminary Blood Blood Culture - Preliminary Group D Enterococcus Assessment and Plan (1) Bacteremia Current Visit: Yes Status: Acute Code(s): R78.81 - BACTEREMIA SNOMED Code(s): 7538792 (2) UTI (urinary tract infection) Current Visit: Yes Status: Acute Code(s): N39.0 - URINARY TRACT INFECTION, SITE NOT SPECIFIED SNOMED Code(s): 48176028 Plan: 1patient present to hospital with weakness fall did have elevated white count source is likely multifactorial patient did have a positive UA and a question of possible Barkley catheter associated UTI likely from enteric gram-negative pathogen keeping in mind the patient was recently hospitalized will need to cover for the resistant gram-negative. 2the patient Barkley catheter has been removed and the patient seem to be able to urinate without any difficulty no need for replacement of the Barkley catheter patient to continue with the cefepime while waiting for urine culture to be fi nalized. 3patient with a positive blood culture with group D Enterococcus questionably related to the permacatheter , Blood culture has been repeated from the permacatheter yesterday and are currently pending blood culture was also obtained peripherally this morning patient to continue with the vancomycin while waiting for the sensitivity to finalize Dictation was produced using [employer] software. please excuse any grammatical, word or spelling errors.
[2023-03-16 11:19] LABS: Glucose,Whole Blood 165 mg/dL (70-110)
[2023-03-16] MEDS: SODIUM FERRIC GLUCONAT-SUCROSE 125 MG in SODIUM CHLORIDE 0.9% 100 ML IVPB SCH (11:49)
--- NOTE | 2023-03-16 12:46 | P.PN ---
Subjective Patient is seen in follow-up for acute kidney injury, hemodialysis dependent. Currently sitting up in chair. Urine output about 400 mL in 24 hours. Barkley catheter removed. No evidence of retention. On antibiotics for group D enterococcus bacteremia. Hemodynamically stable. No vomiting or diarrhea. On nasal cannula. Vital signs are stable. General: No acute distress. HEENT: Head exam is unremarkable. On nasal cannula. LUNGS: Scattered rhonchi. HEART: Rate and Rhythm are regular. ABDOMEN: Nontender. EXTREMITITES: 2+ edema. Objective - Vital Signs Vital signs: Vital Signs Temp 98.2 F 03/16/23 06:55 Pulse 69 03/16/23 08:16 Resp 18 03/16/23 08:16 BP 142/76 03/16/23 06:55 Pulse Ox 95 03/16/23 08:23 FiO2 Intake & Output 03/15/23 03/16/23 03/16/23 18:59 06:59 18:59 Intake Total 480 Output Total 300 325 Balance 180 -325 Intake: Oral 480 Output: Urine 300 325 - Labs CBC & Chem 7: 03/16/23 06:21 03/16/23 06:21 Labs: Abnormal Lab Results - Last 24 Hours (Table) 03/15/23 03/15/23 03/15/23 Range/Units 16:20 16:20 16:42 WBC 12.2 H (3.8-10.6) k/uL RBC 2.53 L (4.30-5.90) m/uL Hgb 7.7 L (13.0-17.5) gm/dL Hct 25.4 L (39.0-53.0) % MCV 100.3 H (80.0-100.0) fL MCHC 30.2 L (31.0-37.0) g/dL RDW (11.5-15.5) % Neutrophils # 9.2 H (1.3-7.7) k/uL Sodium 132 L (137-145) mmol/L BUN 26 H (9-20) mg/dL Creatinine 3.31 H (0.66-1.25) mg/dL Glucose 130 H (74-99) mg/dL POC Glucose (mg/dL) 128 H (70-110) mg/dL Calcium (8.4-10.2) mg/dL 0803/16/23 03/16/23 Range/Units 20:34 06:08 06:21 WBC (3.8-10.6) k/uL RBC (4.30-5.90) m/uL Hgb (13.0-17.5) gm/dL Hct (39.0-53.0) % MCV (80.0-100.0) fL MCHC (31.0-37.0) g/dL RDW (11.5-15.5) % Neutrophils # (1.3-7.7) k/uL Sodium 130 L (137-145) mmol/L BUN 28 H (9-20) mg/dL Creatinine 3.45 H (0.66-1.25) mg/dL Glucose 116 H (74-99) mg/dL POC Glucose (mg/dL) 132 H 130 H (70-110) mg/dL Calcium 7.4 L (8.4-10.2) mg/dL 03/16/23 03/16/23 Range/Units 06:21 11:17 WBC 13.1 H (3.8-10.6) k/uL RBC 2.61 L (4.30-5.90) m/uL Hgb 8.0 L (13.0-17.5) gm/dL Hct 25.2 L (39.0-53.0) % MCV (80.0-100.0) fL MCHC (31.0-37.0) g/dL RDW 15.6 H (11.5-15.5) % Neutrophils # 9.7 H (1.3-7.7) k/uL Sodium (137-145) mmol/L BUN (9-20) mg/dL Creatinine (0.66-1.25) mg/dL Glucose (74-99) mg/dL POC Glucose (mg/dL) 165 H (70-110) mg/dL Calcium (8.4-10.2) mg/dL Microbiology - Last 24 Hours (Table) 03/14/23 13:45 Blood Culture Gram Stain - Preliminary Blood 03/12/23 21:40 Blood Culture Gram Stain - Final Blood Blood Culture - Final Enterococcus faecalis 03/12/23 21:53 Blood Culture Gram Stain - Final Blood Blood Culture - Final Enterococcus faecalis 03/12/23 19:16 Urine Culture - Final Urine,Clean Catch Enterococcus faecalis Assessment and Plan Plan: Assessment: 1. Acute kidney injury secondary to ATN secondary to cardiorenal syndrome, hypotension started on hemodialysis 02/25/2023. Maintained on Thursday schedule outpatient. Baseline creatinine near 1 from September 2022. 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 No hydronephrosis noted on kidney ultrasound done 02/25/2023. 2. Acute on chronic diastolic CHF. 3. Volume overload. 4. Anemia. Iron deficiency noted. On Aranesp. 5. Group D enterococcus bacteremia. Likely urinary source. Urine culture positive for enterococcus. ID following. Plan: Hemodialysis today and again tomorrow mostly for ultrafiltration. Maintain IV iron. Phosphorus level 5.4 dated 03/13/2023. Monitor for renal recovery outpatient. Maintain torsemide. Monitor vancomycin levels. Dose to be adjusted for renal function. Kidney biopsy discussed with patient for definitive diagnosis. Patient wants to hold off at this time.
[2023-03-16] MEDS ORDERED: MIDODRINE 5 MG TAB PO STA (14:15)
[2023-03-16 16:43] LABS: Glucose,Whole Blood 148 mg/dL (70-110)
--- NOTE | 2023-03-16 20:51 | P.PN ---
Subjective Progress Note Date: 03/16/23 67-year-old male who was recently discharged from the hospital about 2 days ago after hospitalization for acute kidney injury volume overload and acute diastolic CHF and acute hypoxic respiratory failure. Patient was significantly volume overloaded and was started on hemodialysis. Urine output had improved however patient remains significantly volume overloaded and therefore hemodialysis was continued as outpatient. Patient did make it to his first outpatient treatment and stated that he felt quite weak when he went home and he has not been able to perform activities of daily living or to get out of bed. No complaints of new fever nausea vomiting abdominal pain or diarrhea. Shortness of breath not worse Patient continues to have significant swelling in the upper and lower extremities Patient has an indwelling Barkley catheter for urine retention. 03/15/2023 Patient is seen and evaluated sitting up in bedside chair Patient is admitted with acute kidney injury, hemodialysis dependent. Currently sitting up in chair. Urine output about 400 mL in 24 hours. Barkley catheter removed. No evidence of retention. -- On antibiotics for group D enterococcus bacteremia. in form of IV Cefepime and Vancomycin; ID on board; final culture and sensitivity is pending. 03/16/2023 Patient is seen and evaluated and follow-up currently receiving hemodialysis with nephrology and infectious disease following. Patient maintained on IV antibiotics awaiting repeat cultures and cultures from the right chest wall permacath with concerns of dialysis port infection. Patient is being treated for an acute urinary tract infection, present on admission most likely secondary to indwelling Barkley catheter. Barkley catheter has been removed and patient is voiding with no difficulties. Patient will likely receive ultrafiltration dialysis in the a.m. as well. Awaiting PT/OT therapy evaluation and patient will likely be going to [facility] once stabilized discharge. Patient is afebrile with no reported chest pain or worsening shortness of breath. Patient continues on 4 L which he was sent home with previous admission secondary to managing his CHF. Patient denies nausea or vomiting and is tolerating diet. Patient reports the hospital food is not very appetizing. Will continue Accu- Cheks before meals and at bedtime Review of systems: Constitutional: No reports of fatigue, fever, or chills Cardiovascular: No reports of chest pain or palpitations Respiratory: No reports of shortness of breath or cough GI: No reports of nausea, vomiting, or diarrhea : No reports of dysuria or retention Neurovascular: reports of generalized weakness All medications have been reviewed Physical exam: Gen: This is a this is a 67-year-old male who is awake, alert and oriented 3, well-developed, obese, ill-appearing, appears older than stated age HEENT: Head is atraumatic, normocephalic. Pupils equal, round. Sclerae is anicteric. NECK: Supple. No JVD. No lymphadenopathy. No thyromegaly. LUNGS: Diminished breath sounds bilaterally with some scattered rhonchi. No intercostal retractions. HEART: Regular rate and rhythm. No murmur. ABDOMEN: Soft. Obese. Bowel sounds are present. No masses. No tenderness. EXTREMITIES: pedal edema. No calf tenderness. Significant bilateral upper and lower extremity edema NEUROLOGICAL: Patient is awake, alert and oriented x3. Cranial nerves 2 through 12 are grossly intact. Diffusely weak Assessment: Acute renal failure, nonoliguric, acute tubular necrosis secondary to cardiorenal syndrome and hypotension, recently started on dialysis on 02/25/2023 last admission Acute on chronic diastolic congestive heart failure, acute exacerbation Acute on chronic hypoxic respiratory failure, secondary to CHF exacerbation Acute urinary tract infection, present on admission, secondary to indwelling Barkley catheter growing enterococcus Features of sepsis, present on admission secondary to urinary tract infection with bacteremia Anemia, iron deficiency History of diabetes mellitus, type II, [id number] Group D enterococcus bacteremia possibly secondary to urinary tract infection also with concerns of possible dialysis catheter infection and cultures from there are pending 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 Patient continues on IV antibiotics with infectious disease following with concerns of urinary tract infection with cultures growing enterococcus. Patient did have positive blood cultures and awaiting repeat cultures. Patient with recent right chest port wall catheter for dialysis with concerns of possible bacteremia from this source. Blood cultures have been obtained and pending. Recommend PT/OT therapy daily and patient is now agreeable to rehab and will be going to [facility] once discharged. Arrangements are also being made for outpatient dialysis on Thursday/Thursday/Thursday. Patient was set up on previous discharge for Thursday//Thursday. Repeat labs ordered for a.m. Overall prognosis is poor and guarded Awaiting cultures to finalize and will discuss further with infectious disease about discharge planning. The impression and plan of care has been dictated by Sandra Ayala, Nurse Practitioner as directed. Dr. Nola MD I have performed a history and examination and MDM of this patient, discussed the same with the dictator, and agree with the dictator's assessment and plan as written ,documented as a scribe. Based on total visit time, I have performed more than 50% of the visit. Objective - Vital Signs Vital signs: Vital Signs Temp 98.2 F 03/16/23 06:55 Pulse 69 03/16/23 08:16 Resp 18 03/16/23 08:16 BP 142/76 03/16/23 06:55 Pulse Ox 95 03/16/23 08:23 FiO2 Intake & Output 03/15/23 03/16/23 03/16/23 18:59 06:59 18:59 Intake Total 480 Output Total 300 325 Balance 180 -325 Intake: Oral 480 Output: Urine 300 325 - Labs CBC & Chem 7: 03/16/23 06:21 03/16/23 06:21 Labs: Abnormal Lab Results - Last 24 Hours (Table) 03/14/23 03/15/23 03/15/23 Range/Units 23:20 11:49 16:20 WBC (3.8-10.6) k/uL RBC (4.30-5.90) m/uL Hgb (13.0-17.5) gm/dL Hct (39.0-53.0) % MCV (80.0-100.0) fL MCHC (31.0-37.0) g/dL RDW (11.5-15.5) % Neutrophils # (1.3-7.7) k/uL Sodium 132 L (137-145) mmol/L BUN 26 H (9-20) mg/dL Creatinine 3.31 H (0.66-1.25) mg/dL Glucose 130 H (74-99) mg/dL POC Glucose (mg/dL) 170 H (70-110) mg/dL Calcium (8.4-10.2) mg/dL Iron 16 L (65-175) UG/DL TIBC 121 L (228-460) UG/DL % Saturation 13.22 L (15.00-50.00) Transferrin 86.4 L (204.0-354.0) mg/dL Ferritin 909.0 H (22.0-322.0) ng/mL 03/15/23 03/15/23 03/15/23 Range/Units 16:20 16:42 20:34 WBC 12.2 H (3.8-10.6) k/uL RBC 2.53 L (4.30-5.90) m/uL Hgb 7.7 L (13.0-17.5) gm/dL Hct 25.4 L (39.0-53.0) % MCV 100.3 H (80.0-100.0) fL MCHC 30.2 L (31.0-37.0) g/dL RDW (11.5-15.5) % Neutrophils # 9.2 H (1.3-7.7) k/uL Sodium (137-145) mmol/L BUN (9-20) mg/dL Creatinine (0.66-1.25) mg/dL Glucose (74-99) mg/dL POC Glucose (mg/dL) 128 H 132 H (70-110) mg/dL Calcium (8.4-10.2) mg/dL Iron (65-175) UG/DL TIBC (228-460) UG/DL % Saturation (15.00-50.00) Transferrin (204.0-354.0) mg/dL Ferritin (22.0-322.0) ng/mL 03/16/23 03/16/23 03/16/23 Range/Units 06:08 06:21 06:21 WBC 13.1 H (3.8-10.6) k/uL RBC 2.61 L (4.30-5.90) m/uL Hgb 8.0 L (13.0-17.5) gm/dL Hct 25.2 L (39.0-53.0) % MCV (80.0-100.0) fL MCHC (31.0-37.0) g/dL RDW 15.6 H (11.5-15.5) % Neutrophils # 9.7 H (1.3-7.7) k/uL Sodium 130 L (137-145) mmol/L BUN 28 H (9-20) mg/dL Creatinine 3.45 H (0.66-1.25) mg/dL Glucose 116 H (74-99) mg/dL POC Glucose (mg/dL) 130 H (70-110) mg/dL Calcium 7.4 L (8.4-10.2) mg/dL Iron (65-175) UG/DL TIBC (228-460) UG/DL % Saturation (15.00-50.00) Transferrin (204.0-354.0) mg/dL Ferritin (22.0-322.0) ng/mL Microbiology - Last 24 Hours (Table) 03/14/23 13:45 Blood Culture Gram Stain - Preliminary Blood 03/12/23 21:40 Blood Culture Gram Stain - Final Blood Blood Culture - Final Enterococcus faecalis 03/12/23 21:53 Blood Culture Gram Stain - Final Blood Blood Culture - Final Enterococcus faecalis 03/12/23 19:16 Urine Culture - Final Urine,Clean Catch Enterococcus faecalis
[2023-03-16] MEDS: MORPHINE SULFATE 4 MG/ML SYRINGE IV PRN (23:30)
[2023-03-17] MEDS: HYDROcodone/APAP 5-325MG 1 EACH TAB PO PRN ×3 (02:02→20:39)
[2023-03-17] MEDS: MIDODRINE 5 MG TAB PO SCH ×3 (05:41→17:53)
[2023-03-17] MEDS: MORPHINE SULFATE 4 MG/ML SYRINGE IV PRN ×4 (05:43→22:33)
[2023-03-17 05:46] LABS: Glucose,Whole Blood 150 mg/dL (70-110)
--- NOTE | 2023-03-17 07:54 | P.PN ---
Subjective Progress Note Date: 03/16/23 Principal diagnosis: Catheter associated UTI and bacteremia Patient is a 67-year-old male with a past medical history significant for type 2 diabetes mellitus hypertension hyperlipidemia atrial fibrillation with recent diagnosis of renal failure for the patient did have a dialysis catheter placement, presented to hospital with weakness patient noticed to have elevated white count positive UA concerning for catheter since UTI. Patient blood culture subsequently came back positive with Enterococcus. On today's evaluation that is 03/16/2023 patient remains to be afebrile, the patient is breathing comfortably on a 4 L nasal cannula oxygen patient denies having any chest pain did have occasional dry cough no nausea vomiting no abdominal pain no diarrhea. Patient hemoglobin is 8.0 white count is 13.1 creatinine 3.45 blood and urine culture with Enterococcus faecalis blood culture 819 also coming back positive and was repeated on 03/15/2023 so far pending Objective - Vital Signs Vital signs: Vital Signs Temp 98.4 F 03/16/23 20:00 Pulse 80 03/16/23 20:00 Resp 17 03/16/23 20:00 BP 115/76 03/16/23 20:00 Pulse Ox 95 03/16/23 20:00 FiO2 Intake & Output 03/16/23 03/16/23 03/17/23 06:59 18:59 06:59 Intake Total 300 Output Total 325 3300 200 Balance -325 -3000 -200 Intake: Hemodialysis 300 Output: Urine 325 100 200 Hemodialysis 3200 Other: # Voids 1 - Exam GENERAL DESCRIPTION: An elderly male lying in bed in no distress RESPIRATORY SYSTEM: Unlabored breathing , decreased breath sounds at bases HEART: S1 S2 regular rate and rhythm , ABDOMEN: Soft , no tenderness EXTREMITIES: No edema feet - Labs CBC & Chem 7: 03/16/23 06:21 03/16/23 06:21 Labs: Abnormal Lab Results - Last 24 Hours (Table) 03/16/23 03/16/23 03/16/23 Range/Units 06:08 06:21 06:21 WBC 13.1 H (3.8-10.6) k/uL RBC 2.61 L (4.30-5.90) m/uL Hgb 8.0 L (13.0-17.5) gm/dL Hct 25.2 L (39.0-53.0) % RDW 15.6 H (11.5-15.5) % Neutrophils # 9.7 H (1.3-7.7) k/uL Sodium 130 L (137-145) mmol/L BUN 28 H (9-20) mg/dL Creatinine 3.45 H (0.66-1.25) mg/dL Glucose 116 H (74-99) mg/dL POC Glucose (mg/dL) 130 H (70-110) mg/dL Calcium 7.4 L (8.4-10.2) mg/dL 03/16/23 03/16/23 Range/Units 11:17 16:41 WBC (3.8-10.6) k/uL RBC (4.30-5.90) m/uL Hgb (13.0-17.5) gm/dL Hct (39.0-53.0) % RDW (11.5-15.5) % Neutrophils # (1.3-7.7) k/uL Sodium (137-145) mmol/L BUN (9-20) mg/dL Creatinine (0.66-1.25) mg/dL Glucose (74-99) mg/dL POC Glucose (mg/dL) 165 H 148 H (70-110) mg/dL Calcium (8.4-10.2) mg/dL Microbiology - Last 24 Hours (Table) 03/14/23 13:45 Blood Culture Gram Stain - Preliminary Blood Assessment and Plan (1) Bacteremia Current Visit: Yes Status: Acute Code(s): R78.81 - BACTEREMIA SNOMED Code(s): 6031563 (2) UTI (urinary tract infection) Current Visit: Yes Status: Acute Code(s): N39.0 - URINARY TRACT INFECTION, SITE NOT SPECIFIED SNOMED Code(s): 82625131 Plan: 1patient with Enterococcus faecalis bacteremia source possible urinary however underlying permacatheter infection not entirely excluded, blood cultures will be repeated hemodialysis catheter again on next dialysis, we will keep the patient on vancomycin because of his penicillin allergy and discontinue cefepime as no gram-negative has been grown monitor his clinical course closely Dictation was produced using [employer] dictation software. please excuse any grammatical, word or spelling errors. Time with Patient: Less than 30
[2023-03-17] MEDS: MAGNESIUM OXIDE 400 MG TAB PO SCH ×2 (08:34→20:38)
[2023-03-17] MEDS: ASPIRIN 81 MG PO SCH (08:34)
[2023-03-17] MEDS: CHOLECALCIFEROL 125 MCG (5000 IU) TABLET PO SCH (08:34)
[2023-03-17] MEDS: THIAMINE 100 MG TAB PO SCH (08:34)
[2023-03-17] MEDS: TAMSULOSIN 0.4 MG CAP.ER.24H PO SCH (08:34)
[2023-03-17] MEDS: ATORVASTATIN 40 MG TAB PO SCH (08:34)
[2023-03-17] MEDS: TORSEMIDE 20 MG TAB PO SCH (08:35)
[2023-03-17] MEDS: RIVAROXABAN 20 MG TAB PO SCH (08:35)
[2023-03-17] MEDS: SODIUM FERRIC GLUCONAT-SUCROSE 125 MG in SODIUM CHLORIDE 0.9% 100 ML IVPB SCH (08:35)
[2023-03-17 08:54] LABS: African American GFR (CKD) 24 (>60 ml/min/1.73 sqM); Anion Gap 4 mmol/L; Blood Urea Nitrogen 20 mg/dL (9-20); Calcium 7.3 mg/dL (8.4-10.2); Carbon Dioxide 28 mmol/L (22-30); Chloride 98 mmol/L (98-107); Glucose 148 mg/dL (74-99); Non-African American GFR(CKD) 20 (>60 ml/min/1.73 sqM); Potassium 3.7 mmol/L (3.5-5.1); Sodium 130 mmol/L (137-145)
[2023-03-17] MEDS ORDERED: MIDODRINE 5 MG TAB PO PRN (08:58)
[2023-03-17 08:59] LABS: Vancomycin,Random 23.6 ug/mL
[2023-03-17 11:15] LABS: Glucose,Whole Blood 126 mg/dL (70-110)
[2023-03-17 12:07] LABS: Basophils % (A) 0.9 %; Eosinophils # (A) 0.33 X 10*3/uL (0.04-0.35); HCT 23.6 % (39.6-50.0); HGB 6.9 d/dL (13.0-17.0); Lymphocytes # (A) 1.55 X 10*3/uL (0.90-5.00); Lymphocytes % (A) 14.2 %; MCH 29.5 pg (27.0-32.0); MCHC 29.2 d/dL (32.0-37.0); MCV 100.9 FL (80.0-97.0); Mean Platelet Volume 9.4 FL (9.5-12.2); Monocytes % (A) 12.8 %; NRBC Per 100 WBC 0 X 10*3/uL (0.00-0.01); Neutrophils # (A) 7.28 X 10*3/uL (1.80-7.70); Neutrophils % (A) 66.5 %; Platelet Count 436 X 10*3/uL (140-440); RBC 2.34 X 10*6/uL (4.40-5.60); RBC Morphology Normal (Normal); RDW 15.7 % (11.5-14.5); WBC 10.95 X 10*3/uL (4.50-10.00)
--- NOTE | 2023-03-17 13:11 | P.PN ---
Subjective Patient is seen in follow-up for acute kidney injury, hemodialysis dependent. Tolerating dialysis well. Urine output about 300-400 mL in 24 hours. No evidence of retention. On antibiotics for group D enterococcus bacteremia. Hemodynamically stable. No vomiting or diarrhea. On nasal cannula. Hemoglobin 6.9 today. Vital signs are stable. General: No acute distress. HEENT: Head exam is unremarkable. On nasal cannula. LUNGS: Scattered rhonchi. HEART: Rate and Rhythm are regular. ABDOMEN: Nontender. EXTREMITITES: 2+ edema. Objective - Vital Signs Vital signs: Vital Signs Temp 97.4 F L 03/17/23 07:13 Pulse 116 H 03/17/23 12:58 Resp 16 03/17/23 07:13 BP 89/74 03/17/23 12:58 Pulse Ox 96 03/17/23 08:42 FiO2 Intake & Output 03/16/23 03/17/23 03/17/23 18:59 06:59 18:59 Intake Total 300 Output Total 3300 200 Balance -3000 -200 Intake: Hemodialysis 300 Output: Urine 100 200 Hemodialysis 3200 Other: # Voids 0 - Labs CBC & Chem 7: 03/17/23 08:20 03/17/23 08:20 Labs: Abnormal Lab Results - Last 24 Hours (Table) 03/16/23 03/17/23 03/17/23 Range/Units 16:41 05:44 08:20 WBC (4.50-10.00) X 10*3/uL RBC (4.40-5.60) X 10*6/uL Hgb (13.0-17.0) d/dL Hct (39.6-50.0) % MCV (80.0-97.0) FL MCHC (32.0-37.0) d/dL RDW (11.5-14.5) % MPV (9.5-12.2) FL Monocytes # (0.20-1.00) X 10*3/uL Sodium 130 L (137-145) mmol/L Creatinine 2.98 H (0.66-1.25) mg/dL Glucose 148 H (74-99) mg/dL POC Glucose (mg/dL) 148 H 150 H (70-110) mg/dL Calcium 7.3 L (8.4-10.2) mg/dL 03/17/23 03/17/23 Range/Units 08:20 11:13 WBC 10.95 H (4.50-10.00) X 10*3/uL RBC 2.34 L (4.40-5.60) X 10*6/uL Hgb 6.9 H* (13.0-17.0) d/dL Hct 23.6 L (39.6-50.0) % MCV 100.9 H (80.0-97.0) FL MCHC 29.2 L (32.0-37.0) d/dL RDW 15.7 H (11.5-14.5) % MPV 9.4 L (9.5-12.2) FL Monocytes # 1.40 H (0.20-1.00) X 10*3/uL Sodium (137-145) mmol/L Creatinine (0.66-1.25) mg/dL Glucose (74-99) mg/dL POC Glucose (mg/dL) 126 H (70-110) mg/dL Calcium (8.4-10.2) mg/dL Assessment and Plan Plan: Assessment: 1. Acute kidney injury secondary to ATN secondary to cardiorenal syndrome, hypotension started on hemodialysis 02/25/2023. Baseline creatinine near 1 from September 2022. 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 No hydronephrosis noted on kidney ultrasound done 02/25/2023. 2. Acute on chronic diastolic CHF. 3. Volume overload. Improving with ultrafiltration. 4. Anemia. Iron deficiency noted. On Aranesp. 5. Group D enterococcus bacteremia. Likely urinary source. Urine culture positive for enterococcus. ID following. Plan: Hemodialysis today and again tomorrow mostly for ultrafiltration. He will now be maintained on Thursday schedule outpatient. Maintain IV iron. Phosphorus level 5.4 dated 03/13/2023. Monitor for renal recovery outpatient. Maintain torsemide. Monitor vancomycin levels. Dose to be adjusted for renal function. Kidney biopsy discussed with patient for definitive diagnosis. Patient wants to hold off at this time.
[2023-03-17] MEDS: atenoloL 25 MG TAB PO SCH ×2 (14:23→20:39)
--- NOTE | 2023-03-17 16:19 | P.PN ---
Subjective Progress Note Date: 03/17/23 Principal diagnosis: Catheter associated UTI and bacteremia Patient is a 67-year-old male with a past medical history significant for type 2 diabetes mellitus hypertension hyperlipidemia atrial fibrillation with recent diagnosis of renal failure for the patient did have a dialysis catheter placement, presented to hospital with weakness patient noticed to have elevated white count positive UA concerning for catheter since UTI. Patient blood culture subsequently came back positive with Enterococcus. On today's evaluation that is 03/17/2023 patient continues to be afebrile, the patient is breathing comfortably on a 4 L nasal cannula oxygen patient denies having any chest pain occasional cough, the patient denies having any nausea vomiting no abdominal pain no diarrhea. Patient hemoglobin is 6.9 white count is down to 10.95 creatinine 2.98 blood and urine culture with Enterococcus faecalis blood culture 03/14/2023 also coming back positive for enterococcus, blood culture on 03/15/2023 so far pending Objective - Vital Signs Vital signs: Vital Signs Temp 97.4 F L 03/17/23 07:13 Pulse 70 03/17/23 07:13 Resp 16 03/17/23 07:13 BP 152/77 03/17/23 07:13 Pulse Ox 96 03/17/23 08:42 FiO2 Intake & Output 03/16/23 03/17/23 03/17/23 18:59 06:59 18:59 Intake Total 300 Output Total 3300 200 Balance -3000 -200 Intake: Hemodialysis 300 Output: Urine 100 200 Hemodialysis 3200 Other: # Voids 0 - Exam GENERAL DESCRIPTION: An elderly male lying in bed in no distress RESPIRATORY SYSTEM: Unlabored breathing , decreased breath sounds at bases HEART: S1 S2 regular rate and rhythm , ABDOMEN: Soft , no tenderness EXTREMITIES: No edema feet - Labs CBC & Chem 7: 03/17/23 08:20 03/17/23 08:20 Labs: Abnormal Lab Results - Last 24 Hours (Table) 03/16/23 03/17/23 03/17/23 Range/Units 16:41 05:44 08:20 WBC (4.50-10.00) X 10*3/uL RBC (4.40-5.60) X 10*6/uL Hgb (13.0-17.0) d/dL Hct (39.6-50.0) % MCV (80.0-97.0) FL MCHC (32.0-37.0) d/dL RDW (11.5-14.5) % MPV (9.5-12.2) FL Monocytes # (0.20-1.00) X 10*3/uL Sodium 130 L (137-145) mmol/L Creatinine 2.98 H (0.66-1.25) mg/dL Glucose 148 H (74-99) mg/dL POC Glucose (mg/dL) 148 H 150 H (70-110) mg/dL Calcium 7.3 L (8.4-10.2) mg/dL 03/17/23 03/17/23 Range/Units 08:20 11:13 WBC 10.95 H (4.50-10.00) X 10*3/uL RBC 2.34 L (4.40-5.60) X 10*6/uL Hgb 6.9 H* (13.0-17.0) d/dL Hct 23.6 L (39.6-50.0) % MCV 100.9 H (80.0-97.0) FL MCHC 29.2 L (32.0-37.0) d/dL RDW 15.7 H (11.5-14.5) % MPV 9.4 L (9.5-12.2) FL Monocytes # 1.40 H (0.20-1.00) X 10*3/uL Sodium (137-145) mmol/L Creatinine (0.66-1.25) mg/dL Glucose (74-99) mg/dL POC Glucose (mg/dL) 126 H (70-110) mg/dL Calcium (8.4-10.2) mg/dL Assessment and Plan (1) Bacteremia Current Visit: Yes Status: Acute Code(s): R78.81 - BACTEREMIA SNOMED Code(s): 0995447 (2) UTI (urinary tract infection) Current Visit: Yes Status: Acute Code(s): N39.0 - URINARY TRACT INFECTION, SITE NOT SPECIFIED SNOMED Code(s): 95007862 Plan: 1patient with Enterococcus faecalis bacteremia source possible urinary however underlying permacatheter infection not entirely excluded, blood cultures will be repeated hemodialysis catheter again on next dialysis, we will keep the patient on vancomycin because of his penicillin allergy and follow-up on the repeat blood cultures if the patient did have persistent bacteremia the dialysis catheter will have to come out this was discussed with the patient in layman terms Dictation was produced using [employer] dictation software. please excuse any grammatical, word or spelling errors. Time with Patient: Less than 30
[2023-03-17 16:56] LABS: Glucose,Whole Blood 161 mg/dL (70-110)
[2023-03-17] MEDS ORDERED: SODIUM CHLORIDE 0.65% NASAL SPRAY 44 ML BTL NASAL PRN (17:52)
[2023-03-17 19:55] LABS: Glucose,Whole Blood 140 mg/dL (70-110)
[2023-03-18] MEDS: MORPHINE SULFATE 4 MG/ML SYRINGE IV PRN ×3 (02:26→20:49)
[2023-03-18 05:56] LABS: Glucose,Whole Blood 143 mg/dL (70-110)
[2023-03-18] MEDS: MIDODRINE 5 MG TAB PO SCH ×3 (06:32→16:29)
--- NOTE | 2023-03-18 06:32 | P.PN ---
Subjective Progress Note Date: 03/17/23 67-year-old male who was recently discharged from the hospital about 2 days ago after hospitalization for acute kidney injury volume overload and acute diastolic CHF and acute hypoxic respiratory failure. Patient was significantly volume overloaded and was started on hemodialysis. Urine output had improved however patient remains significantly volume overloaded and therefore hemodialysis was continued as outpatient. Patient did make it to his first outpatient treatment and stated that he felt quite weak when he went home and he has not been able to perform activities of daily living or to get out of bed. No complaints of new fever nausea vomiting abdominal pain or diarrhea. Shortness of breath not worse Patient continues to have significant swelling in the upper and lower extremities Patient has an indwelling Barkley catheter for urine retention. 03/15/2023 Patient is seen and evaluated sitting up in bedside chair Patient is admitted with acute kidney injury, hemodialysis dependent. Currently sitting up in chair. Urine output about 400 mL in 24 hours. Barkley catheter removed. No evidence of retention. -- On antibiotics for group D enterococcus bacteremia. in form of IV Cefepime and Vancomycin; ID on board; final culture and sensitivity is pending. 03/16/2023 Patient is seen and evaluated and follow-up currently receiving hemodialysis with nephrology and infectious disease following. Patient maintained on IV antibiotics awaiting repeat cultures and cultures from the right chest wall permacath with concerns of dialysis port infection. Patient is being treated for an acute urinary tract infection, present on admission most likely secondary to indwelling Barkley catheter. Barkley catheter has been removed and patient is voiding with no difficulties. Patient will likely receive ultrafiltration dialysis in the a.m. as well. Awaiting PT/OT therapy evaluation and patient will likely be going to [facility] once stabilized discharge. Patient is afebrile with no reported chest pain or worsening shortness of breath. Patient continues on 4 L which he was sent home with previous admission secondary to managing his CHF. Patient denies nausea or vomiting and is tolerating diet. Patient reports the hospital food is not very appetizing. Will continue Accu- Cheks before meals and at bedtime 03/17/2023 Patient seen and evaluated in follow-up this morning continuing on dialysis with nephrology following closely. Hemoglobin was 6.9 today and will give 1 unit of PRBC follow-up with repeat labs in a.m. Patient remains on antibiotics with in fectious disease following as well his blood cultures remained positive for enterococcus. Repeat blood cultures have been ordered again from the [facility] and awaiting finalized cultures. Patient denies chest pain or worsening shortness of breath. Patient continues on 5 L via nasal cannula. No reported nausea or vomiting patient is tolerating diet. Blood sugars are well-controlled at this time. Recommend PT/OT therapy daily as patient will be going to ECF once stabilized and discharged. Review of systems: Constitutional: No reports of fatigue, fever, or chills Cardiovascular: No reports of chest pain or palpitations Respiratory: No reports of worsening shortness of breath or cough GI: No reports of nausea, vomiting, or diarrhea : No reports of dysuria or retention Neurovascular: reports of generalized weakness All medications have been reviewed Physical exam: Gen: This is a this is a 67-year-old male who is awake, alert and oriented 3, well-developed, obese, ill-appearing, appears older than stated age HEENT: Head is atraumatic, normocephalic. Pupils equal, round. Sclerae is anicteric. NECK: Supple. No JVD. No lymphadenopathy. No thyromegaly. LUNGS: Diminished breath sounds bilaterally with some scattered rhonchi. No intercostal retractions. HEART: Regular rate and rhythm. No murmur. ABDOMEN: Soft. Obese. Bowel sounds are present. No masses. No tenderness. EXTREMITIES: pedal edema. No calf tenderness. Significant bilateral upper and lower extremity edema NEUROLOGICAL: Patient is awake, alert and oriented x3. Cranial nerves 2 through 12 are grossly intact. Diffusely weak Assessment: Acute renal failure, nonoliguric, acute tubular necrosis secondary to cardiorenal syndrome and hypotension, recently started on dialysis on 02/25/2023 last admission Acute on chronic diastolic congestive heart failure, acute exacerbation Acute on chronic hypoxic respiratory failure, secondary to CHF exacerbation Acute urinary tract infection, present on admission, secondary to indwelling Barkley catheter growing enterococcus Features of sepsis, present on admission secondary to urinary tract infection with bacteremia Anemia, iron deficiency History of diabetes mellitus, type II, [id number] Group D enterococcus bacteremia possibly secondary to urinary tract infection also with concerns of possible dialysis catheter infection and cultures from t here are pending 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 Patient continues on IV antibiotics with infectious disease following with concerns of urinary tract infection with cultures growing enterococcus. Patient did have positive blood cultures and awaiting repeat cultures. Patient with recent right chest port wall catheter for dialysis with concerns of possible bacteremia from this source. Blood cultures have been obtained from dialysis catheter and pending. Most recent cultures continue to be positive for enterococcus. Recommend PT/OT therapy daily and patient is now agreeable to rehab and will be going to [facility] once discharged. Arrangements are also being made for outpatient dialysis on Thursday/Thursday/Thursday. Patient was set up on previous discharge for Thursday//Thursday. Repeat labs ordered for a.m. we will monitor hemoglobin closely and was 6.9 today and 1 unit of PRBC ordered Overall prognosis is poor and guarded Awaiting cultures to finalize and will discuss further with infectious disease about discharge planning. The impression and plan of care has been dictated by Sandra Ayala, Nurse Prac titioner as directed. Dr. Nola MD I have performed a history and examination and MDM of this patient, discussed the same with the dictator, and agree with the dictator's assessment and plan as written ,documented as a scribe. Based on total visit time, I have performed more than 50% of the visit. Objective - Vital Signs Vital signs: Vital Signs Temp 99.0 F 03/18/23 00:58 Pulse 86 03/18/23 00:58 Resp 18 03/18/23 00:58 BP 97/59 03/18/23 00:58 Pulse Ox 99 03/18/23 00:58 FiO2 Intake & Output 03/17/23 03/17/23 03/18/23 06:59 18:59 06:59 Intake Total 300 610 Output Total 200 4600 4400 Balance -200 -4300 -3790 Intake: Blood Product 0 310 Rc As-1 Unit 0 310 [id number] Hemodialysis 300 300 Output: Urine 200 300 100 Hemodialysis 4300 4300 Other: # Voids 0 - Labs CBC & Chem 7: 03/17/23 08:20 03/17/23 08:20 Labs: Abnormal Lab Results - Last 24 Hours (Table) 0803/17/23 03/17/23 Range/Units 08:20 08:20 11:13 WBC 10.95 H (4.50-10.00) X 10*3/uL RBC 2.34 L (4.40-5.60) X 10*6/uL Hgb 6.9 H* (13.0-17.0) d/dL Hct 23.6 L (39.6-50.0) % MCV 100.9 H (80.0-97.0) FL MCHC 29.2 L (32.0-37.0) d/dL RDW 15.7 H (11.5-14.5) % MPV 9.4 L (9.5-12.2) FL Monocytes # 1.40 H (0.20-1.00) X 10*3/uL Sodium 130 L (137-145) mmol/L Creatinine 2.98 H (0.66-1.25) mg/dL Glucose 148 H (74-99) mg/dL POC Glucose (mg/dL) 126 H (70-110) mg/dL Calcium 7.3 L (8.4-10.2) mg/dL Crossmatch 03/17/23 03/17/23 03/17/23 Range/Units 15:31 16:55 19:53 WBC (4.50-10.00) X 10*3/uL RBC (4.40-5.60) X 10*6/uL Hgb (13.0-17.0) d/dL Hct (39.6-50.0) % MCV (80.0-97.0) FL MCHC (32.0-37.0) d/dL RDW (11.5-14.5) % MPV (9.5-12.2) FL Monocytes # (0.20-1.00) X 10*3/uL Sodium (137-145) mmol/L Creatinine (0.66-1.25) mg/dL Glucose (74-99) mg/dL POC Glucose (mg/dL) 161 H 140 H (70-110) mg/dL Calcium (8.4-10.2) mg/dL Crossmatch See Detail 03/18/23 Range/Units 05:54 WBC (4.50-10.00) X 10*3/uL RBC (4.40-5.60) X 10*6/uL Hgb (13.0-17.0) d/dL Hct (39.6-50.0) % MCV (80.0-97.0) FL MCHC (32.0-37.0) d/dL RDW (11.5-14.5) % MPV (9.5-12.2) FL Monocytes # (0.20-1.00) X 10*3/uL Sodium (137-145) mmol/L Creatinine (0.66-1.25) mg/dL Glucose (74-99) mg/dL POC Glucose (mg/dL) 143 H (70-110) mg/dL Calcium (8.4-10.2) mg/dL Crossmatch Microbiology - Last 24 Hours (Table) 03/14/23 13:45 Blood Culture Gram Stain - Preliminary Blood Blood Culture - Preliminary Group D Enterococcus
[2023-03-18] MEDS: HYDROcodone/APAP 5-325MG 1 EACH TAB PO PRN ×2 (06:34→16:28)
[2023-03-18 07:34] LABS: Basophils % (A) 0 %; Eosinophils # (A) 0.3 k/uL (0-0.7); Eosinophils % (A) 2 %; HCT 28.3 % (39.0-53.0); HGB 8.8 gm/dL (13.0-17.5); Hypochromasia Marked; Lymphocytes # (A) 1.6 k/uL (1.0-4.8); Lymphocytes % (A) 10 %; MCH 30.6 pg (25.0-35.0); MCV 98.6 fL (80.0-100.0); Macrocytosis Slight; Mean Platelet Volume 7.7; Monocytes # (A) 0.9 k/uL (0-1.0); Monocytes % (A) 6 %; Neutrophils # (A) 11.9 k/uL (1.3-7.7); Neutrophils % (A) 80 %; Platelet Count 439 k/uL (150-450); Poikilocytosis Slight; RBC 2.87 m/uL (4.30-5.90); RDW 15.7 % (11.5-15.5); WBC 14.9 k/uL (3.8-10.6)
[2023-03-18 07:44] LABS: African American GFR (CKD) 22 (>60 ml/min/1.73 sqM); Anion Gap 5 mmol/L; Blood Urea Nitrogen 18 mg/dL (9-20); Calcium 7.6 mg/dL (8.4-10.2); Carbon Dioxide 29 mmol/L (22-30); Chloride 94 mmol/L (98-107); Glucose 127 mg/dL (74-99); Magnesium 2.1 mg/dL (1.6-2.3); Non-African American GFR(CKD) 19 (>60 ml/min/1.73 sqM); Potassium 3.8 mmol/L (3.5-5.1); Sodium 128 mmol/L (137-145)
[2023-03-18 09:31] LABS: Vancomycin,Random 20.6 ug/mL
[2023-03-18] MEDS: MAGNESIUM OXIDE 400 MG TAB PO SCH ×2 (10:45→20:48)
[2023-03-18] MEDS: atenoloL 25 MG TAB PO SCH ×2 (10:45→21:58)
[2023-03-18] MEDS: TAMSULOSIN 0.4 MG CAP.ER.24H PO SCH (10:45)
[2023-03-18] MEDS: THIAMINE 100 MG TAB PO SCH (10:45)
[2023-03-18] MEDS: ASPIRIN 81 MG PO SCH (10:45)
[2023-03-18] MEDS: ATORVASTATIN 40 MG TAB PO SCH (10:45)
[2023-03-18] MEDS: CHOLECALCIFEROL 125 MCG (5000 IU) TABLET PO SCH (10:46)
[2023-03-18] MEDS: TORSEMIDE 20 MG TAB PO SCH (10:46)
[2023-03-18] MEDS: RIVAROXABAN 20 MG TAB PO SCH (10:46)
[2023-03-18] MEDS: SODIUM FERRIC GLUCONAT-SUCROSE 125 MG in SODIUM CHLORIDE 0.9% 100 ML IVPB SCH (11:31)
[2023-03-18 11:53] LABS: Glucose,Whole Blood 148 mg/dL (70-110)
[2023-03-18] MEDS ORDERED: VANCOMYCIN 1,750 MG in SODIUM CHLORIDE 0.9% 500 ML 500 ML IVPB ONE (14:00)
--- NOTE | 2023-03-18 15:51 | P.PN ---
Subjective Patient is seen in follow-up for acute kidney injury, hemodialysis dependent. Urine output remains low. Tolerated 3 L ultrafiltration this morning. No evidence of retention. On antibiotics for group D enterococcus bacteremia. Hemodynamically stable. No vomiting or diarrhea. On nasal cannula. Hemoglobin improved post blood transition. No active bleeding. Vital signs are stable. General: No acute distress. HEENT: Head exam is unremarkable. On nasal cannula. LUNGS: Scattered rhonchi. HEART: Rate and Rhythm are regular. ABDOMEN: Nontender. EXTREMITITES: 2+ edema. Objective - Vital Signs Vital signs: Vital Signs Temp 98.2 F 03/18/23 10:53 Pulse 86 03/18/23 13:36 Resp 18 03/18/23 10:53 BP 116/66 03/18/23 13:36 Pulse Ox 94 L 03/18/23 07:25 FiO2 Intake & Output 03/17/23 03/18/23 03/18/23 18:59 06:59 18:59 Intake Total 300 610 300 Output Total 4600 4400 3300 Balance -4300 -3790 -3000 Weight 113.398 kg Intake: Blood Product 0 310 Rc As-1 Unit 0 310 [id number] Hemodialysis 300 300 300 Output: Urine 300 100 Hemodialysis 4300 4300 3300 - Labs CBC & Chem 7: 03/18/23 06:39 03/18/23 06:39 Labs: Abnormal Lab Results - Last 24 Hours (Table) 03/17/23 03/17/23 03/17/23 Range/Units 15:31 16:55 19:53 WBC (3.8-10.6) k/uL RBC (4.30-5.90) m/uL Hgb (13.0-17.5) gm/dL Hct (39.0-53.0) % RDW (11.5-15.5) % Neutrophils # (1.3-7.7) k/uL Sodium (137-145) mmol/L Chloride (98-107) mmol/L Creatinine (0.66-1.25) mg/dL Glucose (74-99) mg/dL POC Glucose (mg/dL) 161 H 140 H (70-110) mg/dL Calcium (8.4-10.2) mg/dL Crossmatch See Detail 03/18/23 03/18/23 03/18/23 Range/Units 05:54 06:39 06:39 WBC 14.9 H (3.8-10.6) k/uL RBC 2.87 L (4.30-5.90) m/uL Hgb 8.8 L (13.0-17.5) gm/dL Hct 28.3 L (39.0-53.0) % RDW 15.7 H (11.5-15.5) % Neutrophils # 11.9 H (1.3-7.7) k/uL Sodium 128 L (137-145) mmol/L Chloride 94 L (98-107) mmol/L Creatinine 3.16 H (0.66-1.25) mg/dL Glucose 127 H (74-99) mg/dL POC Glucose (mg/dL) 143 H (70-110) mg/dL Calcium 7.6 L (8.4-10.2) mg/dL Crossmatch 03/18/23 Range/Units 11:52 WBC (3.8-10.6) k/uL RBC (4.30-5.90) m/uL Hgb (13.0-17.5) gm/dL Hct (39.0-53.0) % RDW (11.5-15.5) % Neutrophils # (1.3-7.7) k/uL Sodium (137-145) mmol/L Chloride (98-107) mmol/L Creatinine (0.66-1.25) mg/dL Glucose (74-99) mg/dL POC Glucose (mg/dL) 148 H (70-110) mg/dL Calcium (8.4-10.2) mg/dL Crossmatch Microbiology - Last 24 Hours (Table) 03/14/23 13:45 Blood Culture Gram Stain - Preliminary Blood Blood Culture - Preliminary Group D Enterococcus Assessment and Plan Plan: Assessment: 1. Acute kidney injury secondary to ATN secondary to cardiorenal syndrome, hypotension started on hemodialysis 02/25/2023. Baseline creatinine near 1 from September 2022. 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 No hydronephrosis noted on kidney ultrasound done 02/25/2023. 2. Acute on chronic diastolic CHF. 3. Volume overload. Improving with ultrafiltration. 4. Anemia. Iron deficiency noted - s/p IV iron. On Aranesp. 5. Group D enterococcus bacteremia. Likely urinary source. Urine culture positive for enterococcus. ID following. Plan: Hemodialysis Thursday. He will be maintained on Thursday schedule outpatient. Maintain IV iron. Phosphorus level 5.4 dated 03/13/2023. Monitor for renal recovery outpatient. Maintain torsemide. Monitor vancomycin levels. Dose to be adjusted for renal function. Kidney biopsy discussed with patient for definitive diagnosis. Patient wants to hold off at this time. Draw cultures from permacath today. Case discussed with infectious disease. Will discontinue permacath if advised by ID.
[2023-03-18 16:36] LABS: Glucose,Whole Blood 215 mg/dL (70-110)
[2023-03-18 20:26] LABS: Glucose,Whole Blood 186 mg/dL (70-110)
[2023-03-19] MEDS: HYDROcodone/APAP 5-325MG 1 EACH TAB PO PRN ×4 (00:47→21:31)
[2023-03-19] MEDS: MORPHINE SULFATE 4 MG/ML SYRINGE IV PRN ×2 (04:22→23:35)
[2023-03-19 05:34] LABS: Glucose,Whole Blood 181 mg/dL (70-110)
[2023-03-19 06:03] LABS: African American GFR (CKD) 24 (>60 ml/min/1.73 sqM); Non-African American GFR(CKD) 21 (>60 ml/min/1.73 sqM)
[2023-03-19] MEDS ORDERED: DEXTROSE 50% SYRINGE 50 ML IVP PRN ×2 (06:03)
--- NOTE | 2023-03-19 06:13 | P.PN ---
Subjective Progress Note Date: 03/18/23 67-year-old male who was recently discharged from the hospital about 2 days ago after hospitalization for acute kidney injury volume overload and acute diastolic CHF and acute hypoxic respiratory failure. Patient was significantly volume overloaded and was started on hemodialysis. Urine output had improved however patient remains significantly volume overloaded and therefore hemodialysis was continued as outpatient. Patient did make it to his first outpatient treatment and stated that he felt quite weak when he went home and he has not been able to perform activities of daily living or to get out of bed. No complaints of new fever nausea vomiting abdominal pain or diarrhea. Shortness of breath not worse Patient continues to have significant swelling in the upper and lower extremities Patient has an indwelling Barkley catheter for urine retention. 03/15/2023 Patient is seen and evaluated sitting up in bedside chair Patient is admitted with acute kidney injury, hemodialysis dependent. Currently sitting up in chair. Urine output about 400 mL in 24 hours. Barkley catheter removed. No evidence of retention. -- On antibiotics for group D enterococcus bacteremia. in form of IV Cefepime and Vancomycin; ID on board; final culture and sensitivity is pending. 03/16/2023 Patient is seen and evaluated and follow-up currently receiving hemodialysis with nephrology and infectious disease following. Patient maintained on IV antibiotics awaiting repeat cultures and cultures from the right chest wall permacath with concerns of dialysis port infection. Patient is being treated for an acute urinary tract infection, present on admission most likely secondary to indwelling Barkley catheter. Barkley catheter has been removed and patient is voiding with no difficulties. Patient will likely receive ultrafiltration dialysis in the a.m. as well. Awaiting PT/OT therapy evaluation and patient will likely be going to [facility] once stabilized discharge. Patient is afebrile with no reported chest pain or worsening shortness of breath. Patient continues on 4 L which he was sent home with previous admission secondary to managing his CHF. Patient denies nausea or vomiting and is tolerating diet. Patient reports the hospital food is not very appetizing. Will continue Accu- Cheks before meals and at bedtime 03/17/2023 Patient seen and evaluated in follow-up this morning continuing on dialysis with nephrology following closely. Hemoglobin was 6.9 today and will give 1 unit of PRBC follow-up with repeat labs in a.m. Patient remains on antibiotics with in fectious disease following as well his blood cultures remained positive for enterococcus. Repeat blood cultures have been ordered again from the [facility] and awaiting finalized cultures. Patient denies chest pain or worsening shortness of breath. Patient continues on 5 L via nasal cannula. No reported nausea or vomiting patient is tolerating diet. Blood sugars are well-controlled at this time. Recommend PT/OT therapy daily as patient will be going to ECF once stabilized and discharged. 03/18/2023 Patient is seen in follow-up this morning just received dialysis and fatigued although arousable. is at bedside. Hemoglobin has improved to 8.8 after a unit of PRBC yesterday. Patient will likely receive dialysis again tomorrow and will follow-up with repeat labs. Cultures remain positive in multiple cultures have been received and pending from the [facility] site. Infectious disease following. Overall poor prognosis. Patient remains full code. Patient is afebrile denies chest pain or worsening shortness of breath. Patient continues on 5 L via nasal cannula. Blood sugars have been becoming more elevated will add sliding scale. Review of systems: Constitutional: reports of fatigue, no fever, or chills Cardiovascular: No reports of chest pain or palpitations Respiratory: No reports of worsening shortness of breath or cough GI: No reports of nausea, vomiting, or diarrhea : No reports of dysuria or retention Neurovascular: reports of generalized weakness All medications have been reviewed Physical exam: Gen: This is a this is a 67-year-old male who is lethargic although easily arousable, alert and oriented 3, well-developed, obese, ill-appearing, appears older than stated age HEENT: Head is atraumatic, normocephalic. Pupils equal, round. Sclerae is anicteric. NECK: Supple. No JVD. No lymphadenopathy. No thyromegaly. LUNGS: Diminished breath sounds bilaterally with some scattered rhonchi. No intercostal retractions. HEART: Regular rate and rhythm. No murmur. ABDOMEN: Soft. Obese. Bowel sounds are present. No masses. No tenderness. EXTREMITIES: pedal edema. No calf tenderness. Significant bilateral upper and lower extremity edema NEUROLOGICAL: Patient is lethargic although easily arousable, alert and oriented x3. Cranial nerves 2 through 12 are grossly intact. Diffusely weak Assessment: Acute renal failure, nonoliguric, acute tubular necrosis secondary to cardiorenal syndrome and hypotension, recently started on dialysis on 02/25/2023 last admission Acute on chronic diastolic congestive heart failure, acute exacerbation Acute on chronic hypoxic respiratory failure, secondary to CHF exacerbation Acute urinary tract infection, present on admission, secondary to indwelling Barkley catheter growing enterococcus Features of sepsis, present on admission secondary to urinary tract infection with bacteremia Anemia, iron deficiency History of diabetes mellitus, type II, [id number] Group D enterococcus bacteremia possibly secondary to urinary tract infection also with concerns of possible dialysis catheter infection and cultures from there are pending 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 Patient continues on IV antibiotics with infectious disease following with concerns of urinary tract infection with cultures growing enterococcus. Patient continues to have positive blood cultures and awaiting repeat cultures. Patient with recent right chest port wall catheter for dialysis with concerns of possible bacteremia from this source. Blood cultures have been obtained from dialysis catheter and pending. Most recent cultures continue to be positive for enterococcus. Recommend PT/OT therapy daily and patient is now agreeable to rehab and will be going to [facility] once discharged. Arrangements are also being made for outpatient dialysis on Thursday/Thursday/Thursday. Patient was set up on previous discharge for Thursday//Thursday. Repeat labs ordered for a.m. we will monitor hemoglobin closely and transfuse if less than 7. Hemoglobin is improved after 1 unit of PRBCs today and is 8.8 Overall prognosis is poor and guarded Awaiting cultures to finalize and will discuss further with infectious disease about discharge planning. The impression and plan of care has been dictated by Sandra Ayala, Nurse Practitioner as directed. Dr. Nola MD I have performed a history and examination and MDM of this patient, discussed with the dictator, and agree with the dictator's assessment and plan as written ,documented as a scribe. Based on total visit time, I have performed more than 50% of the visit. Objective - Vital Signs Vital signs: Vital Signs Temp 98.6 F 03/18/23 07:25 Pulse 70 03/18/23 07:25 Resp 22 03/18/23 07:25 BP 109/60 03/18/23 07:25 Pulse Ox 94 L 03/18/23 07:25 FiO2 Intake & Output 03/17/23 03/18/23 03/18/23 18:59 06:59 18:59 Intake Total 300 610 Output Total 4600 4400 Balance -4300 -3790 Intake: Blood Product 0 310 Rc As-1 Unit 0 310 [id number] Hemodialysis 300 300 Output: Urine 300 100 Hemodialysis 4300 4300 - Labs CBC & Chem 7: 03/18/23 06:39 03/19/23 04:52 Labs: Abnormal Lab Results - Last 24 Hours (Table) 03/17/23 03/17/23 03/17/23 Range/Units 08:20 11:13 15:31 WBC 10.95 H (4.50-10.00) X 10*3/uL RBC 2.34 L (4.40-5.60) X 10*6/uL Hgb 6.9 H* (13.0-17.0) d/dL Hct 23.6 L (39.6-50.0) % MCV 100.9 H (80.0-97.0) FL MCHC 29.2 L (32.0-37.0) d/dL RDW 15.7 H (11.5-14.5) % MPV 9.4 L (9.5-12.2) FL Neutrophils # (1.3-7.7) k/uL Monocytes # 1.40 H (0.20-1.00) X 10*3/uL Sodium (137-145) mmol/L Chloride (98-107) mmol/L Creatinine (0.66-1.25) mg/dL Glucose (74-99) mg/dL POC Glucose (mg/dL) 126 H (70-110) mg/dL Calcium (8.4-10.2) mg/dL Crossmatch See Detail 03/17/23 03/17/23 03/18/23 Range/Units 16:55 19:53 05:54 WBC (4.50-10.00) X 10*3/uL RBC (4.40-5.60) X 10*6/uL Hgb (13.0-17.0) d/dL Hct (39.6-50.0) % MCV (80.0-97.0) FL MCHC (32.0-37.0) d/dL RDW (11.5-14.5) % MPV (9.5-12.2) FL Neutrophils # (1.3-7.7) k/uL Monocytes # (0.20-1.00) X 10*3/uL Sodium (137-145) mmol/L Chloride (98-107) mmol/L Creatinine (0.66-1.25) mg/dL Glucose (74-99) mg/dL POC Glucose (mg/dL) 161 H 140 H 143 H (70-110) mg/dL Calcium (8.4-10.2) mg/dL Crossmatch 03/18/23 03/18/23 Range/Units 06:39 06:39 WBC 14.9 H (4.50-10.00) X 10*3/uL RBC 2.87 L (4.40-5.60) X 10*6/uL Hgb 8.8 L (13.0-17.0) d/dL Hct 28.3 L (39.6-50.0) % MCV (80.0-97.0) FL MCHC (32.0-37.0) d/dL RDW 15.7 H (11.5-14.5) % MPV (9.5-12.2) FL Neutrophils # 11.9 H (1.3-7.7) k/uL Monocytes # (0.20-1.00) X 10*3/uL Sodium 128 L (137-145) mmol/L Chloride 94 L (98-107) mmol/L Creatinine 3.16 H (0.66-1.25) mg/dL Glucose 127 H (74-99) mg/dL POC Glucose (mg/dL) (70-110) mg/dL Calcium 7.6 L (8.4-10.2) mg/dL Crossmatch Microbiology - Last 24 Hours (Table) 03/14/23 13:45 Blood Culture Gram Stain - Preliminary Blood Blood Culture - Preliminary Group D Enterococcus
[2023-03-19] MEDS: MIDODRINE 5 MG TAB PO SCH ×3 (06:43→18:00)
[2023-03-19] MEDS: INSULIN ASPART (NovoLOG) 100 UNIT/ML VIAL SQ SCH ×4 (06:44→21:32)
[2023-03-19] MEDS: MAGNESIUM OXIDE 400 MG TAB PO SCH ×2 (08:08→21:31)
[2023-03-19] MEDS: THIAMINE 100 MG TAB PO SCH (08:09)
[2023-03-19] MEDS: atenoloL 25 MG TAB PO SCH ×2 (08:09→22:54)
[2023-03-19] MEDS: CHOLECALCIFEROL 125 MCG (5000 IU) TABLET PO SCH (08:09)
[2023-03-19] MEDS: TORSEMIDE 20 MG TAB PO SCH (08:09)
[2023-03-19] MEDS: RIVAROXABAN 20 MG TAB PO SCH (08:09)
[2023-03-19] MEDS: ASPIRIN 81 MG PO SCH (08:09)
[2023-03-19] MEDS: TAMSULOSIN 0.4 MG CAP.ER.24H PO SCH (08:09)
[2023-03-19] MEDS: ATORVASTATIN 40 MG TAB PO SCH (08:09)
[2023-03-19 11:23] LABS: Glucose,Whole Blood 134 mg/dL (70-110)
--- NOTE | 2023-03-19 11:38 | P.PN ---
Subjective Patient is seen in follow-up for acute kidney injury, hemodialysis dependent. Urine output remains low. Tolerated 3 L ultrafiltration yesterday. No evidence of retention. On antibiotics for group D enterococcus bacteremia. Hemodynamically stable. No vomiting or diarrhea. On nasal cannula. Hemoglobin improved post blood transition. No active bleeding. Vital signs are stable. General: No acute distress. HEENT: Head exam is unremarkable. On nasal cannula. LUNGS: Scattered rhonchi. HEART: Rate and Rhythm are regular. ABDOMEN: Nontender. EXTREMITITES: 2+ edema. Objective - Vital Signs Vital signs: Vital Signs Temp 97.9 F 03/19/23 06:55 Pulse 93 03/19/23 06:55 Resp 16 03/19/23 06:55 BP 119/72 03/19/23 06:55 Pulse Ox 97 03/19/23 06:55 FiO2 Intake & Output 03/18/23 03/19/23 03/19/23 18:59 06:59 18:59 Intake Total 300 Output Total 3300 200 Balance -3000 -200 Weight 113.398 kg Intake: Hemodialysis 300 Output: Urine 200 Hemodialysis 3300 Other: Voiding Method Urinal Urinal # Voids 2 # Bowel Movements 1 - Labs CBC & Chem 7: 03/18/23 06:39 03/19/23 04:52 Labs: Abnormal Lab Results - Last 24 Hours (Table) 03/18/23 03/18/23 03/18/23 Range/Units 11:52 16:34 20:25 Creatinine (0.66-1.25) mg/dL POC Glucose (mg/dL) 148 H 215 H 186 H (70-110) mg/dL 03/19/23 03/19/23 03/19/23 Range/Units 04:52 05:33 11:22 Creatinine 2.90 H (0.66-1.25) mg/dL POC Glucose (mg/dL) 181 H 134 H (70-110) mg/dL Microbiology - Last 24 Hours (Table) 03/17/23 10:25 Blood Culture Gram Stain - Preliminary Blood Blood Culture - Preliminary Group D Enterococcus 03/14/23 13:45 Blood Culture Gram Stain - Final Blood Blood Culture - Final Enterococcus faecalis Assessment and Plan Plan: Assessment: 1. Acute kidney injury secondary to ATN secondary to cardiorenal syndrome, hy potension started on hemodialysis 02/25/2023. Baseline creatinine near 1 from September 2022. 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 No hydronephrosis noted on kidney ultrasound done 02/25/2023. 2. Acute on chronic diastolic CHF. 3. Volume overload. Improving with ultrafiltration. 4. Anemia. Iron deficiency noted - s/p IV iron. On Aranesp. 5. Group D enterococcus bacteremia. Likely urinary source. Urine culture positive for enterococcus. ID following. Plan: Hemodialysis today and discontinue permacath after dialysis today. Phosphorus level 5.4 dated 03/13/2023. Monitor for renal recovery outpatient. Maintain torsemide. Monitor vancomycin levels. Dose to be adjusted for renal function. Kidney biopsy discussed with patient for definitive diagnosis. Patient wants to hold off at this time. Case discussed with infectious disease. Blood cultures from 03/17/2023 are again positive - discontinue permacath. He will be maintained on Thursday schedule outpatient.
--- NOTE | 2023-03-19 12:24 | P.PN ---
Subjective Progress Note Date: 03/19/23 67-year-old male who was recently discharged from the hospital about 2 days ago after hospitalization for acute kidney injury volume overload and acute diastolic CHF and acute hypoxic respiratory failure. Patient was significantly volume overloaded and was started on hemodialysis. Urine output had improved however patient remains significantly volume overloaded and therefore hemodialysis was continued as outpatient. Patient did make it to his first outpatient treatment and stated that he felt quite weak when he went home and he has not been able to perform activities of daily living or to get out of bed. No complaints of new fever nausea vomiting abdominal pain or diarrhea. Shortness of breath not worse Patient continues to have significant swelling in the upper and lower extremities Patient has an indwelling Barkley catheter for urine retention. 03/15/2023 Patient is seen and evaluated sitting up in bedside chair Patient is admitted with acute kidney injury, hemodialysis dependent. Currently sitting up in chair. Urine output about 400 mL in 24 hours. Barkley catheter removed. No evidence of retention. -- On antibiotics for group D enterococcus bacteremia. in form of IV Cefepime and Vancomycin; ID on board; final culture and sensitivity is pending. 03/16/2023 Patient is seen and evaluated and follow-up currently receiving hemodialysis with nephrology and infectious disease following. Patient maintained on IV antibiotics awaiting repeat cultures and cultures from the right chest wall permacath with concerns of dialysis port infection. Patient is being treated for an acute urinary tract infection, present on admission most likely secondary to indwelling Barkley catheter. Barkley catheter has been removed and patient is voiding with no difficulties. Patient will likely receive ultrafiltration dialysis in the a.m. as well. Awaiting PT/OT therapy evaluation and patient will likely be going to [facility] once stabilized discharge. Patient is afebrile with no reported chest pain or worsening shortness of breath. Patient continues on 4 L which he was sent home with previous admission secondary to managing his CHF. Patient denies nausea or vomiting and is tolerating diet. Patient reports the hospital food is not very appetizing. Will continue Accu- Cheks before meals and at bedtime 03/17/2023 Patient seen and evaluated in follow-up this morning continuing on dialysis with nephrology following closely. Hemoglobin was 6.9 today and will give 1 unit of PRBC follow-up with repeat labs in a.m. Patient remains on antibiotics with in fectious disease following as well his blood cultures remained positive for enterococcus. Repeat blood cultures have been ordered again from the [facility] and awaiting finalized cultures. Patient denies chest pain or worsening shortness of breath. Patient continues on 5 L via nasal cannula. No reported nausea or vomiting patient is tolerating diet. Blood sugars are well-controlled at this time. Recommend PT/OT therapy daily as patient will be going to [facility] once stabilized and discharged. 03/18/2023 Patient is seen in follow-up this morning just received dialysis and fatigued although arousable. is at bedside. Hemoglobin has improved to 8.8 after a unit of PRBC yesterday. Patient will likely receive dialysis again tomorrow and will follow-up with repeat labs. Cultures remain positive in multiple cultures have been received and pending from the [facility] site. Infectious disease following. Overall poor prognosis. Patient remains full code. Patient is afebrile denies chest pain or worsening shortness of breath. Patient continues on 5 L via nasal cannula. Blood sugars have been becoming more elevated will add sliding scale. 03/19/2023 Patient is seen in follow-up being followed by nephrology along with infectious disease and vascular surgery consulted and will be having dialysis catheter removed as there is concern for continued contamination with positive blood cultures. Blood cultures remain positive and some samples have been ordered specifically from [facility] although unsure if collected this way. Infectious disease along with nephrology both in agreement that dialysis catheter needs to be removed and patient will have dialysis today and then removed. Awaiting a.m. labs. Patient is continued on vancomycin and will continue for now. Patient is afebrile no reported worsening shortness of breath and denies chest pains. Patient tolerating diet and blood sugars will be continued to be monitored with Accu-Cheks before meals and at bedtime and sliding scale as needed. Review of systems: Constitutional: reports of fatigue, no fever, or chills Cardiovascular: No reports of chest pain or palpitations Respiratory: No reports of worsening shortness of breath or cough GI: No reports of nausea, vomiting, or diarrhea : No reports of dysuria or retention Neurovascular: reports of generalized weakness All medications have been reviewed Physical exam: Gen: This is a this is a 67-year-old male who is lethargic although easily arousable, alert and oriented 3, well-developed, obese, ill-appearing, appears older than stated age HEENT: Head is atraumatic, normocephalic. Pupils equal, round. Sclerae is anicteric. NECK: Supple. No JVD. No lymphadenopathy. No thyromegaly. LUNGS: Diminished breath sounds bilaterally with some scattered rhonchi. No intercostal retractions. HEART: Regular rate and rhythm. No murmur. ABDOMEN: Soft. Obese. Bowel sounds are present. No masses. No tenderness. EXTREMITIES: pedal edema. No calf tenderness. Significant bilateral upper and lower extremity edema NEUROLOGICAL: Patient is lethargic although easily arousable, alert and oriented x3. Cranial nerves 2 through 12 are grossly intact. Diffusely weak Assessment: Acute renal failure, nonoliguric, acute tubular necrosis secondary to ca rdiorenal syndrome and hypotension, recently started on dialysis on 02/25/2023 last admission Acute on chronic diastolic congestive heart failure, acute exacerbation Acute on chronic hypoxic respiratory failure, secondary to CHF exacerbation Acute urinary tract infection, present on admission, secondary to indwelling Barkley catheter growing enterococcus Features of sepsis, present on admission secondary to urinary tract infection with bacteremia Anemia, iron deficiency History of diabetes mellitus, type II, [id number] Group D enterococcus bacteremia possibly secondary to urinary tract infection also with concerns of possible dialysis catheter infection and cultures from there are pending 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 Vascular surgery consulted today for removal of permacath as there is concerns of continued positive blood cultures with permacath being the source. Awaiting a.m. labs and will follow-up Patient to continue on IV vancomycin with infectious disease following Patient has been voiding without a Barkley and will continue to monitor intake and output closely Continue Accu-Cheks before meals and at bedtime and will continue sliding scale Continue with PT/OT therapy daily. Case management following and patient will be going to [facility] on stabilized and discharged. Patient will require insurance authorization Overall prognosis is poor and guarded Awaiting cultures to finalize and show clearance of bacteremia prior to discharge planning. Cultures continued positive for group D enterococcus. The impression and plan of care has been dictated by Sandra Ayala, Nurse Practitioner as directed. Dr. Nola MD I have performed a history and examination and MDM of this patient, discussed the same with the dictator, and agree with the dictator's assessment and plan as written ,documented as a scribe. Based on total visit time, I have performed more than 50% of the visit. Objective - Vital Signs Vital signs: Vital Signs Temp 97.9 F 03/19/23 06:55 Pulse 93 03/19/23 06:55 Resp 16 03/19/23 06:55 BP 119/72 03/19/23 06:55 Pulse Ox 97 03/19/23 06:55 FiO2 Intake & Output 03/18/23 03/19/23 03/19/23 18:59 06:59 18:59 Intake Total 300 Output Total 3300 200 Balance -3000 -200 Weight 113.398 kg Intake: Hemodialysis 300 Output: Urine 200 Hemodialysis 3300 Other: Voiding Method Urinal Urinal # Voids 2 # Bowel Movements 1 - Labs CBC & Chem 7: 03/18/23 06:39 03/19/23 04:52 Labs: Abnormal Lab Results - Last 24 Hours (Table) 03/18/23 03/18/23 03/19/23 Range/Units 16:34 20:25 04:52 Creatinine 2.90 H (0.66-1.25) mg/dL POC Glucose (mg/dL) 215 H 186 H (70-110) mg/dL 03/19/23 03/19/23 Range/Units 05:33 11:22 Creatinine (0.66-1.25) mg/dL POC Glucose (mg/dL) 181 H 134 H (70-110) mg/dL Microbiology - Last 24 Hours (Table) 03/17/23 10:25 Blood Culture Gram Stain - Preliminary Blood Blood Culture - Preliminary Group D Enterococcus 03/14/23 13:45 Blood Culture Gram Stain - Final Blood Blood Culture - Final Enterococcus faecalis
[2023-03-19 16:04] LABS: Basophils % (A) 0 %; Eosinophils # (A) 0.4 k/uL (0-0.7); Eosinophils % (A) 3 %; HCT 26.8 % (39.0-53.0); Hypochromasia Marked; Lymphocytes # (A) 1.4 k/uL (1.0-4.8); Lymphocytes % (A) 10 %; MCH 30.1 pg (25.0-35.0); MCV 100.2 fL (80.0-100.0); Macrocytosis Slight; Mean Platelet Volume 8.7; Monocytes # (A) 0.8 k/uL (0-1.0); Monocytes % (A) 6 %; Neutrophils # (A) 11.3 k/uL (1.3-7.7); Neutrophils % (A) 79 %; Platelet Count 397 k/uL (150-450); Poikilocytosis Slight; RBC 2.67 m/uL (4.30-5.90); RDW 15.4 % (11.5-15.5); WBC 14.2 k/uL (3.8-10.6)
[2023-03-19] MEDS ORDERED: LIDOCAINE 1% INJ 10MG/ML (20 ML MDV) SQ ONE (16:15)
[2023-03-19 16:32] LABS: African American GFR (CKD) 24 (>60 ml/min/1.73 sqM); Anion Gap 5 mmol/L; Blood Urea Nitrogen 15 mg/dL (9-20); Calcium 7.8 mg/dL (8.4-10.2); Carbon Dioxide 27 mmol/L (22-30); Chloride 95 mmol/L (98-107); Glucose 153 mg/dL (74-99); Non-African American GFR(CKD) 21 (>60 ml/min/1.73 sqM); Potassium 3.7 mmol/L (3.5-5.1); Sodium 127 mmol/L (137-145)
[2023-03-19 17:00] LABS: Glucose,Whole Blood 157 mg/dL (70-110)
[2023-03-19 20:17] LABS: Glucose,Whole Blood 158 mg/dL (70-110)
--- NOTE | 2023-03-19 21:35 | P.PN ---
Subjective Progress Note Date: 03/18/23 Principal diagnosis: Catheter associated UTI and bacteremia Patient is a 67-year-old male with a past medical history significant for type 2 diabetes mellitus hypertension hyperlipidemia atrial fibrillation with recent diagnosis of renal failure for the patient did have a dialysis catheter placement, presented to hospital with weakness patient noticed to have elevated white count positive UA concerning for catheter since UTI. Patient blood culture subsequently came back positive with Enterococcus. On today's evaluation that is 03/18/2023, the patient remains to be afebrile patient is breathing comfortably still requiring 6 L current oxygen denies any chest pain shortness of breath, abdominal pain or diarrhea. Patient did have a white count of 14.9 hemoglobin is 8.8 creatinine is 3.16 blood cultures 03/12/2023 as well as 03/14/2023, 03/17/2023 is currently pending Objective - Vital Signs Vital signs: Vital Signs Temp 97.3 F L 03/18/23 14:49 Pulse 69 03/18/23 14:49 Resp 21 03/18/23 14:49 BP 102/62 03/18/23 14:49 Pulse Ox 96 03/18/23 14:49 FiO2 Intake & Output 03/17/23 03/18/23 03/18/23 18:59 06:59 18:59 Intake Total 300 610 300 Output Total 4600 4400 3300 Balance -4300 -3790 -3000 Weight 113.398 kg Intake: Blood Product 0 310 Rc As-1 Unit 0 310 [id number] Hemodialysis 300 300 300 Output: Urine 300 100 Hemodialysis 4300 4300 3300 - Exam GENERAL DESCRIPTION: An elderly male lying in bed in no distress RESPIRATORY SYSTEM: Unlabored breathing , decreased breath sounds at bases HEART: S1 S2 regular rate and rhythm , ABDOMEN: Soft , no tenderness EXTREMITIES: No edema feet - Labs CBC & Chem 7: 03/19/23 04:52 03/19/23 04:52 Labs: Abnormal Lab Results - Last 24 Hours (Table) 03/17/23 03/17/23 03/18/23 Range/Units 15:31 19:53 05:54 WBC (3.8-10.6) k/uL RBC (4.30-5.90) m/uL Hgb (13.0-17.5) gm/dL Hct (39.0-53.0) % RDW (11.5-15.5) % Neutrophils # (1.3-7.7) k/uL Sodium (137-145) mmol/L Chloride (98-107) mmol/L Creatinine (0.66-1.25) mg/dL Glucose (74-99) mg/dL POC Glucose (mg/dL) 140 H 143 H (70-110) mg/dL Calcium (8.4-10.2) mg/dL Crossmatch See Detail 03/18/23 03/18/23 03/18/23 Range/Units 06:39 06:39 11:52 WBC 14.9 H (3.8-10.6) k/uL RBC 2.87 L (4.30-5.90) m/uL Hgb 8.8 L (13.0-17.5) gm/dL Hct 28.3 L (39.0-53.0) % RDW 15.7 H (11.5-15.5) % Neutrophils # 11.9 H (1.3-7.7) k/uL Sodium 128 L (137-145) mmol/L Chloride 94 L (98-107) mmol/L Creatinine 3.16 H (0.66-1.25) mg/dL Glucose 127 H (74-99) mg/dL POC Glucose (mg/dL) 148 H (70-110) mg/dL Calcium 7.6 L (8.4-10.2) mg/dL Crossmatch 03/18/23 Range/Units 16:34 WBC (3.8-10.6) k/uL RBC (4.30-5.90) m/uL Hgb (13.0-17.5) gm/dL Hct (39.0-53.0) % RDW (11.5-15.5) % Neutrophils # (1.3-7.7) k/uL Sodium (137-145) mmol/L Chloride (98-107) mmol/L Creatinine (0.66-1.25) mg/dL Glucose (74-99) mg/dL POC Glucose (mg/dL) 215 H (70-110) mg/dL Calcium (8.4-10.2) mg/dL Crossmatch Microbiology - Last 24 Hours (Table) 03/17/23 10:25 Blood Culture - Preliminary Blood 03/14/23 13:45 Blood Culture Gram Stain - Final Blood Blood Culture - Final Enterococcus faecalis Assessment and Plan (1) Bacteremia Current Visit: Yes Status: Acute Code(s): R78.81 - BACTEREMIA SNOMED Code(s): 4806862 (2) UTI (urinary tract infection) Current Visit: Yes Status: Acute Code(s): N39.0 - URINARY TRACT INFECTION, SITE NOT SPECIFIED SNOMED Code(s): 54849787 Plan: 1patient with Enterococcus faecalis bacteremia source possible urinary however underlying permacatheter infection not entirely excluded, Patient did have a positive blood culture from 03/12/2023 as well as 03/14/2023, patient was supposed to have a blood culture on 03/15/2023 that has not been done 03/17/2023 so far pending if that blood cultures came back positive also we will have to remove the dialysis catheter continue with the vancomycin pharmacy to dose Dictation was produced using [employer] dictation software. please excuse any grammatical, word or spelling errors. Time with Patient: Less than 30
--- NOTE | 2023-03-19 21:37 | P.PN ---
Subjective Progress Note Date: 03/19/23 Principal diagnosis: Catheter associated UTI and bacteremia Patient is a 67-year-old male with a past medical history significant for type 2 diabetes mellitus hypertension hyperlipidemia atrial fibrillation with recent diagnosis of renal failure for the patient did have a dialysis catheter placement, presented to hospital with weakness patient noticed to have elevated white count positive UA concerning for catheter since UTI. Patient blood culture subsequently came back positive with Enterococcus. On today's evaluation that is 03/19/2023 the patient denies having any fever or any chills patient is breathing comfortably however still requiring 6 L nasal cannula oxygen and the chest pain no worsening of his pulmonology no nausea vomiting no abdominal pain or diarrhea. Patient did have a hemoglobin of 8.0.2 is 14.1 creatinine is 2.90 blood culture from 03/17/2023 also came back positive Objective - Vital Signs Vital signs: Vital Signs Temp 98 F 03/19/23 12:53 Pulse 93 03/19/23 12:53 Resp 17 03/19/23 12:53 BP 131/77 03/19/23 12:53 Pulse Ox 97 03/19/23 12:53 FiO2 Intake & Output 03/18/23 03/19/23 03/19/23 18:59 06:59 18:59 Intake Total 300 Output Total 3300 200 Balance -3000 -200 Weight 113.398 kg Intake: Hemodialysis 300 Output: Urine 200 Hemodialysis 3300 Other: Voiding Method Urinal Urinal # Voids 2 # Bowel Movements 1 - Exam GENERAL DESCRIPTION: An elderly male lying in bed in no distress RESPIRATORY SYSTEM: Unlabored breathing , decreased breath sounds at bases HEART: S1 S2 regular rate and rhythm , ABDOMEN: Soft , no tenderness EXTREMITIES: No edema feet - Labs CBC & Chem 7: 03/19/23 04:52 03/19/23 04:52 Labs: Abnormal Lab Results - Last 24 Hours (Table) 03/18/23 03/18/23 03/19/23 Range/Units 16:34 20:25 04:52 Creatinine 2.90 H (0.66-1.25) mg/dL POC Glucose (mg/dL) 215 H 186 H (70-110) mg/dL 03/19/23 03/19/23 Range/Units 05:33 11:22 Creatinine (0.66-1.25) mg/dL POC Glucose (mg/dL) 181 H 134 H (70-110) mg/dL Microbiology - Last 24 Hours (Table) 03/17/23 10:25 Blood Culture Gram Stain - Preliminary Blood Blood Culture - Preliminary Group D Enterococcus 03/14/23 13:45 Blood Culture Gram Stain - Final Blood Blood Culture - Final Enterococcus faecalis Assessment and Plan (1) Bacteremia Current Visit: Yes Status: Acute Code(s): R78.81 - BACTEREMIA SNOMED Code(s): 4982900 (2) UTI (urinary tract infection) Current Visit: Yes Status: Acute Code(s): N39.0 - URINARY TRACT INFECTION, SITE NOT SPECIFIED SNOMED Code(s): 72140976 Plan: 1patient with Enterococcus faecalis bacteremia source possible urinary however underlying permacatheter infection not entirely excluded, Patient did have evidence of persistent bacteremia that is highly suspicious for line related infection patient will get dialysis today afterwards the dialysis catheter should be discontinued , cather tip should be sent for the culture blood cultures will be obtained and if those remains to be negative by Thursday he should be able to get annual pulm catheter this were discussed in detail with the patient and his as well as him manager photography on the phone Dictation was produced using [employer] dictation software. please excuse any grammatical, word or spelling errors. Time with Patient: Less than 30
[2023-03-20] MEDS: HYDROcodone/APAP 5-325MG 1 EACH TAB PO PRN ×4 (03:15→23:58)
[2023-03-20 06:07] LABS: Glucose,Whole Blood 122 mg/dL (70-110)
[2023-03-20] MEDS: INSULIN ASPART (NovoLOG) 100 UNIT/ML VIAL SQ SCH ×4 (06:41→20:52)
[2023-03-20] MEDS: MIDODRINE 5 MG TAB PO SCH ×3 (06:51→17:33)
[2023-03-20] MEDS: MORPHINE SULFATE 4 MG/ML SYRINGE IV PRN ×3 (06:53→19:56)
[2023-03-20] MEDS: TORSEMIDE 20 MG TAB PO SCH (10:32)
[2023-03-20] MEDS: TAMSULOSIN 0.4 MG CAP.ER.24H PO SCH (10:32)
[2023-03-20] MEDS: atenoloL 25 MG TAB PO SCH ×3 (10:33→20:52)
[2023-03-20] MEDS: RIVAROXABAN 20 MG TAB PO SCH (10:33)
[2023-03-20] MEDS: ASPIRIN 81 MG PO SCH (10:33)
[2023-03-20] MEDS: ATORVASTATIN 40 MG TAB PO SCH (10:33)
[2023-03-20] MEDS: MAGNESIUM OXIDE 400 MG TAB PO SCH ×2 (10:33→20:52)
[2023-03-20] MEDS: CHOLECALCIFEROL 125 MCG (5000 IU) TABLET PO SCH (10:33)
[2023-03-20] MEDS: THIAMINE 100 MG TAB PO SCH (10:33)
[2023-03-20] MEDS: ERGOCALCIFEROL 1,250 MCG (50,000 IU) CAPSULE PO SCH (10:33)
[2023-03-20 11:33] LABS: Glucose,Whole Blood 170 mg/dL (70-110)
--- NOTE | 2023-03-20 11:49 | P.PN ---
Subjective Patient is seen in follow-up for acute kidney injury, hemodialysis dependent. Urine output remains low. Tolerated 3.5 L ultrafiltration yesterday. No evidence of retention. On antibiotics for group D enterococcus bacteremia. Permacath removed this morning. Hemodynamically stable. No vomiting or diarrhea. On nasal cannula. Vital signs are stable. General: No acute distress. HEENT: Head exam is unremarkable. On nasal cannula. LUNGS: Scattered rhonchi. HEART: Rate and Rhythm are regular. ABDOMEN: Nontender. EXTREMITITES: 2+ edema. Objective - Vital Signs Vital signs: Vital Signs Temp 98.8 F 03/20/23 07:53 Pulse 65 03/20/23 07:53 Resp 18 03/20/23 07:53 BP 92/53 03/20/23 10:42 Pulse Ox 94 L 03/20/23 07:53 FiO2 Intake & Output 03/19/23 03/20/23 03/20/23 18:59 06:59 18:59 Intake Total 1000 Output Total 100 4032 Balance -100 -3032 Intake: Hemodialysis 1000 Output: Urine 100 300 Hemodialysis 3732 Other: Voiding Method Urinal Urinal - Labs CBC & Chem 7: 03/19/23 04:52 03/19/23 04:52 Labs: Abnormal Lab Results - Last 24 Hours (Table) 03/19/23 03/19/23 03/19/23 Range/Units 04:52 04:52 16:59 WBC 14.2 H (3.8-10.6) k/uL RBC 2.67 L (4.30-5.90) m/uL Hgb 8.0 L (13.0-17.5) gm/dL Hct 26.8 L (39.0-53.0) % MCV 100.2 H (80.0-100.0) fL MCHC 30.0 L (31.0-37.0) g/dL Neutrophils # 11.3 H (1.3-7.7) k/uL Sodium 127 L (137-145) mmol/L Chloride 95 L (98-107) mmol/L Creatinine 2.90 H (0.66-1.25) mg/dL Glucose 153 H (74-99) mg/dL POC Glucose (mg/dL) 157 H (70-110) mg/dL Calcium 7.8 L (8.4-10.2) mg/dL 03/19/23 03/20/23 03/20/23 Range/Units 20:16 06:04 11:31 WBC (3.8-10.6) k/uL RBC (4.30-5.90) m/uL Hgb (13.0-17.5) gm/dL Hct (39.0-53.0) % MCV (80.0-100.0) fL MCHC (31.0-37.0) g/dL Neutrophils # (1.3-7.7) k/uL Sodium (137-145) mmol/L Chloride (98-107) mmol/L Creatinine (0.66-1.25) mg/dL Glucose (74-99) mg/dL POC Glucose (mg/dL) 158 H 122 H 170 H (70-110) mg/dL Calcium (8.4-10.2) mg/dL Microbiology - Last 24 Hours (Table) 03/17/23 10:25 Blood Culture Gram Stain - Preliminary Blood Blood Culture - Preliminary Group D Enterococcus Assessment and Plan Plan: Assessment: 1. Acute kidney injury secondary to ATN secondary to cardiorenal syndrome, hypotension started on hemodialysis 02/25/2023. Baseline creatinine near 1 from September 2022. 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 No hydronephrosis noted on kidney ultrasound done 02/25/2023. 2. Acute on chronic diastolic CHF. 3. Volume overload. Improving with ultrafiltration. 4. Anemia. Iron deficiency noted - s/p IV iron. On Aranesp. 5. Group D enterococcus bacteremia. Likely urinary source. Urine culture positive for enterococcus. ID following. Also concern for permacath infection - removed this morning. Plan: Hold off on hemodialysis today and continue to assess on a daily basis. New permacath to be placed once cleared by ID. Phosphorus level 5.4 dated 03/13/2023. Monitor for renal recovery outpatient. Maintain torsemide. Monitor vancomycin levels. Dose to be adjusted for renal function. Kidney biopsy discussed with patient for definitive diagnosis. Patient wants to hold off at this time. He will be maintained on Thursday schedule outpatient.
[2023-03-20] MEDS: DARBEPOETIN ALFA 60 MCG/0.3 ML SYRINGE SQ SCH (13:30)
[2023-03-20 13:49] LABS: Basophils % (A) 0 %; Eosinophils # (A) 0.3 k/uL (0-0.7); Eosinophils % (A) 2 %; HCT 29.9 % (39.0-53.0); HGB 9.1 gm/dL (13.0-17.5); Hypochromasia Marked; Lymphocytes # (A) 1.4 k/uL (1.0-4.8); Lymphocytes % (A) 9 %; MCHC 30.6 g/dL (31.0-37.0); MCV 98.2 fL (80.0-100.0); Monocytes # (A) 0.9 k/uL (0-1.0); Monocytes % (A) 6 %; Neutrophils # (A) 11.9 k/uL (1.3-7.7); Neutrophils % (A) 81 %; Platelet Count 439 k/uL (150-450); Poikilocytosis Slight; RBC 3.05 m/uL (4.30-5.90); RDW 15.2 % (11.5-15.5); WBC 14.8 k/uL (3.8-10.6)
[2023-03-20 14:23] LABS: African American GFR (CKD) 22 (>60 ml/min/1.73 sqM); Anion Gap 7 mmol/L; Blood Urea Nitrogen 19 mg/dL (9-20); Calcium 7.9 mg/dL (8.4-10.2); Carbon Dioxide 27 mmol/L (22-30); Chloride 95 mmol/L (98-107); Glucose 149 mg/dL (74-99); Non-African American GFR(CKD) 19 (>60 ml/min/1.73 sqM); Sodium 129 mmol/L (137-145)
[2023-03-20 14:28] LABS: Vancomycin,Random 22.6 ug/mL
[2023-03-20 16:34] LABS: Glucose,Whole Blood 131 mg/dL (70-110)
--- NOTE | 2023-03-20 17:10 | P.PN ---
Subjective Progress Note Date: 03/20/23 Principal diagnosis: Catheter associated UTI and bacteremia Patient is a 67-year-old male with a past medical history significant for type 2 diabetes mellitus hypertension hyperlipidemia atrial fibrillation with recent diagnosis of renal failure for the patient did have a dialysis catheter placement, presented to hospital with weakness patient noticed to have elevated white count positive UA concerning for catheter since UTI. Patient blood culture subsequently came back positive with Enterococcus. Patient did have removal of the palmar catheter on 03/20/2023 On today's evaluation that is 03/20/2023 the patient remains to be afebrile, patient is breathing comfortably on 5 L nasal cannula oxygen and the chest pain no worsening cough or sputum production, no nausea vomiting no abdominal pain or diarrhea. Patient did have a hemoglobin of 9.1, wbc 14.8 creatinine is 3.21 blood culture from 03/18/2023 so far pending Objective - Vital Signs Vital signs: Vital Signs Temp 97.6 F 03/20/23 14:06 Pulse 86 03/20/23 14:06 Resp 18 03/20/23 14:06 BP 102/73 03/20/23 14:06 Pulse Ox 97 03/20/23 14:06 FiO2 Intake & Output 03/19/23 03/20/23 03/20/23 18:59 06:59 18:59 Intake Total 1000 Output Total 100 4032 200 Balance -100 -3032 -200 Intake: Hemodialysis 1000 Output: Urine 100 300 200 Hemodialysis 3732 Other: Voiding Method Urinal Urinal # Bowel Movements 1 - Exam GENERAL DESCRIPTION: An elderly male lying in bed in no distress RESPIRATORY SYSTEM: Unlabored breathing , decreased breath sounds at bases HEART: S1 S2 regular rate and rhythm , ABDOMEN: Soft , no tenderness EXTREMITIES: No edema feet - Labs CBC & Chem 7: 03/20/23 13:08 03/20/23 13:08 Labs: Abnormal Lab Results - Last 24 Hours (Table) 03/19/23 03/19/23 03/19/23 Range/Units 04:52 04:52 16:59 WBC 14.2 H (3.8-10.6) k/uL RBC 2.67 L (4.30-5.90) m/uL Hgb 8.0 L (13.0-17.5) gm/dL Hct 26.8 L (39.0-53.0) % MCV 100.2 H (80.0-100.0) fL MCHC 30.0 L (31.0-37.0) g/dL Neutrophils # 11.3 H (1.3-7.7) k/uL Sodium 127 L (137-145) mmol/L Chloride 95 L (98-107) mmol/L Creatinine 2.90 H (0.66-1.25) mg/dL Glucose 153 H (74-99) mg/dL POC Glucose (mg/dL) 157 H (70-110) mg/dL Calcium 7.8 L (8.4-10.2) mg/dL 03/19/23 03/20/23 03/20/23 Range/Units 20:16 06:04 11:31 WBC (3.8-10.6) k/uL RBC (4.30-5.90) m/uL Hgb (13.0-17.5) gm/dL Hct (39.0-53.0) % MCV (80.0-100.0) fL MCHC (31.0-37.0) g/dL Neutrophils # (1.3-7.7) k/uL Sodium (137-145) mmol/L Chloride (98-107) mmol/L Creatinine (0.66-1.25) mg/dL Glucose (74-99) mg/dL POC Glucose (mg/dL) 158 H 122 H 170 H (70-110) mg/dL Calcium (8.4-10.2) mg/dL 03/20/23 03/20/23 Range/Units 13:08 13:08 WBC 14.8 H (3.8-10.6) k/uL RBC 3.05 L (4.30-5.90) m/uL Hgb 9.1 L (13.0-17.5) gm/dL Hct 29.9 L (39.0-53.0) % MCV (80.0-100.0) fL MCHC 30.6 L (31.0-37.0) g/dL Neutrophils # 11.9 H (1.3-7.7) k/uL Sodium 129 L (137-145) mmol/L Chloride 95 L (98-107) mmol/L Creatinine 3.21 H (0.66-1.25) mg/dL Glucose 149 H (74-99) mg/dL POC Glucose (mg/dL) (70-110) mg/dL Calcium 7.9 L (8.4-10.2) mg/dL Microbiology - Last 24 Hours (Table) 03/18/23 07:35 Blood Culture Gram Stain - Preliminary Blood Assessment and Plan (1) Bacteremia Current Visit: Yes Status: Acute Code(s): R78.81 - BACTEREMIA SNOMED Code(s): 8165572 (2) UTI (urinary tract infection) Current Visit: Yes Status: Acute Code(s): N39.0 - URINARY TRACT INFECTION, SITE NOT SPECIFIED SNOMED Code(s): 80575151 Plan: 1patient with Enterococcus faecalis bacteremia source possible urinary however underlying permacatheter infection not entirely excluded, Patient did have evidence of persistent bacteremia that is highly suspicious for line related infection 2-patient Roxann catheter was discontinued on 03/20/2023, catheter tip has been sent for the culture blood cultures obtained today and those remains to be negative by Thursday he can be able to get another permacatheter we will contact the patient on vancomycin pharmacy to dose Dictation was produced using [employer] software. please excuse any grammatical, word or spelling errors. Time with Patient: Less than 30
[2023-03-20 20:44] LABS: Glucose,Whole Blood 180 mg/dL (70-110)
--- NOTE | 2023-03-20 21:36 | P.PN ---
Subjective Progress Note Date: 03/20/23 67-year-old male who was recently discharged from the hospital about 2 days ago after hospitalization for acute kidney injury volume overload and acute diastolic CHF and acute hypoxic respiratory failure. Patient was significantly volume overloaded and was started on hemodialysis. Urine output had improved however patient remains significantly volume overloaded and therefore hemodialysis was continued as outpatient. Patient did make it to his first outpatient treatment and stated that he felt quite weak when he went home and he has not been able to perform activities of daily living or to get out of bed. No complaints of new fever nausea vomiting abdominal pain or diarrhea. Shortness of breath not worse Patient continues to have significant swelling in the upper and lower extremities Patient has an indwelling Barkley catheter for urine retention. 03/15/2023 Patient is seen and evaluated sitting up in bedside chair Patient is admitted with acute kidney injury, hemodialysis dependent. Currently sitting up in chair. Urine output about 400 mL in 24 hours. Barkley catheter removed. No evidence of retention. -- On antibiotics for group D enterococcus bacteremia. in form of IV Cefepime and Vancomycin; ID on board; final culture and sensitivity is pending. 03/16/2023 Patient is seen and evaluated and follow-up currently receiving hemodialysis with nephrology and infectious disease following. Patient maintained on IV antibiotics awaiting repeat cultures and cultures from the right chest wall permacath with concerns of dialysis port infection. Patient is being treated for an acute urinary tract infection, present on admission most likely secondary to indwelling Barkley catheter. Barkley catheter has been removed and patient is voiding with no difficulties. Patient will likely receive ultrafiltration dialysis in the a.m. as well. Awaiting PT/OT therapy evaluation and patient will likely be going to [facility] once stabilized discharge. Patient is afebrile with no reported chest pain or worsening shortness of breath. Patient continues on 4 L which he was sent home with previous admission secondary to managing his CHF. Patient denies nausea or vomiting and is tolerating diet. Patient reports the hospital food is not very appetizing. Will continue Accu- Cheks before meals and at bedtime 03/17/2023 Patient seen and evaluated in follow-up this morning continuing on dialysis with nephrology following closely. Hemoglobin was 6.9 today and will give 1 unit of PRBC follow-up with repeat labs in a.m. Patient remains on antibiotics with in fectious disease following as well his blood cultures remained positive for enterococcus. Repeat blood cultures have been ordered again from the [facility] and awaiting finalized cultures. Patient denies chest pain or worsening shortness of breath. Patient continues on 5 L via nasal cannula. No reported nausea or vomiting patient is tolerating diet. Blood sugars are well-controlled at this time. Recommend PT/OT therapy daily as patient will be going to [facility] once stabilized and discharged. 03/18/2023 Patient is seen in follow-up this morning just received dialysis and fatigued although arousable. is at bedside. Hemoglobin has improved to 8.8 after a unit of PRBC yesterday. Patient will likely receive dialysis again tomorrow and will follow-up with repeat labs. Cultures remain positive in multiple cultures have been received and pending from the [facility] site. Infectious disease following. Overall poor prognosis. Patient remains full code. Patient is afebrile denies chest pain or worsening shortness of breath. Patient continues on 5 L via nasal cannula. Blood sugars have been becoming more elevated will add sliding scale. 03/19/2023 Patient is seen in follow-up being followed by nephrology along with infectious disease and vascular surgery consulted and will be having dialysis catheter removed as there is concern for continued contamination with positive blood cultures. Blood cultures remain positive and some samples have been ordered specifically from [facility] although unsure if collected this way. Infectious disease along with nephrology both in agreement that dialysis catheter needs to be removed and patient will have dialysis today and then removed. Awaiting a.m. labs. Patient is continued on vancomycin and will continue for now. Patient is afebrile no reported worsening shortness of breath and denies chest pains. Patient tolerating diet and blood sugars will be continued to be monitored with Accu-Cheks before meals and at bedtime and sliding scale as needed. 03/20/2023 Patient is seen in follow-up this morning is awake and alert sitting up in the chair. Patient and report he was able to walk a few steps to the end of the couch with walker. Patient continues with significant weakness and will be going to rehab once cleared by consultations and would recommend PT/OT therapy daily. Patient did have right chest wall dialysis catheter removed today by vascular surgery and tip was sent for culture. Patient continues to be on vancomycin with infectious disease following and awaiting repeat cultures to finalized. Previous cultures have been still positive for enterococcus. Patient is afebrile and white count is 14 and hemoglobin is currently stable. Patient has no Barkley catheter and has been voiding. Patient denies any pain or burning with urinary frequency. Patient received dialysis yesterday and will not receive dialysis again until Thursday and nephrology is following closely. Follow-up labs ordered for a.m. Review of systems: Constitutional: No reports of fatigue, no fever, or chills Cardiovascular: No reports of chest pain or palpitations Respiratory: No reports of worsening shortness of breath or cough GI: No reports of nausea, vomiting, or diarrhea : No reports of dysuria or retention Neurovascular: reports of generalized weakness All medications have been reviewed Physical exam: Gen: This is a 67-year-old male who is awake, alert and oriented 3, well- developed, obese, ill-appearing, appears older than stated age HEENT: Head is atraumatic, normocephalic. Pupils equal, round. Sclerae is anicteric. NECK: Supple. No JVD. No lymphadenopathy. No thyromegaly. LUNGS: Diminished breath sounds bilaterally with some scattered rhonchi. No intercostal retractions. Recent right catheter on chest wall removed and dressing is dry and intact with no saturation noted HEART: S1, S2 are muffled ABDOMEN: Soft. Obese. Bowel sounds are present. No masses. No tenderness. EXTREMITIES: pedal edema. No calf tenderness. Significant bilateral upper and lower extremity edema. Left lower extremity mcdermott with bullous pemphigus lesion noted NEUROLOGICAL: Patient is awake, alert and oriented x3. Cranial nerves 2 through 12 are grossly intact. Diffusely weak Assessment: Acute renal failure, nonoliguric, acute tubular necrosis secondary to cardiorenal syndrome and hypotension, recently started on dialysis on 02/25/2023 last admission Acute on chronic diastolic congestive heart failure, acute exacerbation Acute on chronic hypoxic respiratory failure, secondary to CHF exacerbation Acute urinary tract infection, present on admission, secondary to indwelling Barkley catheter growing enterococcus Features of sepsis, present on admission secondary to urinary tract infection with bacteremia Anemia, iron deficiency Pressure ulcers, stage II, bilateral buttocks, present on admission History of diabetes mellitus, type II, [id number] Group D enterococcus bacteremia possibly secondary to urinary tract infection also with concerns of possible dialysis catheter infection and cultures from there are pending 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 Vascular surgery Dr. Cano performed removal of permacath as there is concerns of continued positive blood cultures with permacath being the source. Permacath tip was sent for cultures and pending at this time. Most recent blood cultures remain positive with infectious disease following and patient will continue on IV antibiotics. Patient will not receive dialysis again until at least Thursday. Awaiting finalized cultures. White count remains slightly elevated and will repeat labs. Sodium is slightly low and encouraged oral intake with continued renal diet with restrictions. Patient has been voiding without a Barkley and will continue to monitor intake and output closely Continue Accu-Cheks before meals and at bedtime and will continue sliding scale Continue with PT/OT therapy daily. Case management following and patient will be going to [facility] on stabilized and discharged. Patient will require insu andrea authorization Overall prognosis is poor and guarded Awaiting cultures to finalize and show clearance of bacteremia prior to discharge planning. Cultures continued positive for group D enterococcus. Nephrology to follow-up on Thursday once cultures have finalized as this was discussed with infectious disease of possibly replacing the permacath after cultures have resulted. The impression and plan of care has been dictated by Sandra Ayala, Nurse Practitioner as directed. Dr. Nola MD I have performed a history and examination and MDM of this patient, discussed the same with the dictator, and agree with the dictator's assessment and plan as written ,documented as a scribe. Based on total visit time, I have performed more than 50% of the visit. Objective - Vital Signs Vital signs: Vital Signs Temp 97.6 F 03/20/23 14:06 Pulse 86 03/20/23 14:06 Resp 18 03/20/23 14:06 BP 89/42 03/20/23 17:32 Pulse Ox 97 03/20/23 14:06 FiO2 Intake & Output 03/20/23 03/20/23 03/21/23 06:59 18:59 06:59 Intake Total 1000 480 Output Total 4032 500 Balance -3032 -20 Intake: Oral 480 Hemodialysis 1000 Output: Urine 300 500 Hemodialysis 3732 Other: Voiding Method Urinal Urinal # Bowel Movements 1 - Labs CBC & Chem 7: 03/20/23 13:08 03/20/23 13:08 Labs: Abnormal Lab Results - Last 24 Hours (Table) 03/20/23 03/20/23 03/20/23 Range/Units 06:04 11:31 13:08 WBC (3.8-10.6) k/uL RBC (4.30-5.90) m/uL Hgb (13.0-17.5) gm/dL Hct (39.0-53.0) % MCHC (31.0-37.0) g/dL Neutrophils # (1.3-7.7) k/uL Sodium 129 L (137-145) mmol/L Chloride 95 L (98-107) mmol/L Creatinine 3.21 H (0.66-1.25) mg/dL Glucose 149 H (74-99) mg/dL POC Glucose (mg/dL) 122 H 170 H (70-110) mg/dL Calcium 7.9 L (8.4-10.2) mg/dL 03/20/23 03/20/23 03/20/23 Range/Units 13:08 16:33 20:42 WBC 14.8 H (3.8-10.6) k/uL RBC 3.05 L (4.30-5.90) m/uL Hgb 9.1 L (13.0-17.5) gm/dL Hct 29.9 L (39.0-53.0) % MCHC 30.6 L (31.0-37.0) g/dL Neutrophils # 11.9 H (1.3-7.7) k/uL Sodium (137-145) mmol/L Chloride (98-107) mmol/L Creatinine (0.66-1.25) mg/dL Glucose (74-99) mg/dL POC Glucose (mg/dL) 131 H 180 H (70-110) mg/dL Calcium (8.4-10.2) mg/dL Microbiology - Last 24 Hours (Table) 03/18/23 07:35 Blood Culture Gram Stain - Preliminary Blood
[2023-03-21] MEDS: MORPHINE SULFATE 4 MG/ML SYRINGE IV PRN ×2 (03:00→09:43)
[2023-03-21 05:55] LABS: Glucose,Whole Blood 136 mg/dL (70-110)
[2023-03-21] MEDS: INSULIN ASPART (NovoLOG) 100 UNIT/ML VIAL SQ SCH ×4 (06:03→21:11)
[2023-03-21] MEDS: HYDROcodone/APAP 5-325MG 1 EACH TAB PO PRN ×2 (06:06→12:38)
[2023-03-21] MEDS: MIDODRINE 5 MG TAB PO SCH ×3 (06:08→17:07)
[2023-03-21 08:21] LABS: Basophils % (A) 0 %; Eosinophils # (A) 0.4 k/uL (0-0.7); Eosinophils % (A) 3 %; HCT 27.4 % (39.0-53.0); HGB 8.2 gm/dL (13.0-17.5); Hypochromasia Marked; Lymphocytes # (A) 1.3 k/uL (1.0-4.8); Lymphocytes % (A) 10 %; MCH 29.3 pg (25.0-35.0); MCHC 29.9 g/dL (31.0-37.0); MCV 98.1 fL (80.0-100.0); Mean Platelet Volume 7.1; Monocytes # (A) 0.8 k/uL (0-1.0); Monocytes % (A) 7 %; Neutrophils % (A) 79 %; Platelet Count 400 k/uL (150-450); Poikilocytosis Slight; RBC 2.79 m/uL (4.30-5.90); RDW 15.3 % (11.5-15.5); WBC 12.7 k/uL (3.8-10.6)
[2023-03-21 08:47] LABS: African American GFR (CKD) 18 (>60 ml/min/1.73 sqM); Anion Gap 5 mmol/L; Blood Urea Nitrogen 24 mg/dL (9-20); Calcium 7.6 mg/dL (8.4-10.2); Carbon Dioxide 29 mmol/L (22-30); Chloride 96 mmol/L (98-107); Glucose 138 mg/dL (74-99); Non-African American GFR(CKD) 15 (>60 ml/min/1.73 sqM); Potassium 4.2 mmol/L (3.5-5.1); Sodium 130 mmol/L (137-145)
[2023-03-21] MEDS: CHOLECALCIFEROL 125 MCG (5000 IU) TABLET PO SCH (09:37)
[2023-03-21] MEDS: TAMSULOSIN 0.4 MG CAP.ER.24H PO SCH (09:37)
[2023-03-21] MEDS: RIVAROXABAN 20 MG TAB PO SCH (09:37)
[2023-03-21] MEDS: atenoloL 25 MG TAB PO SCH ×2 (09:38→21:17)
[2023-03-21] MEDS: THIAMINE 100 MG TAB PO SCH (09:38)
[2023-03-21] MEDS: ASPIRIN 81 MG PO SCH (09:38)
[2023-03-21] MEDS: TORSEMIDE 20 MG TAB PO SCH (09:38)
[2023-03-21] MEDS: MAGNESIUM OXIDE 400 MG TAB PO SCH ×2 (09:38→21:17)
[2023-03-21] MEDS: ATORVASTATIN 40 MG TAB PO SCH (09:38)
[2023-03-21 11:07] LABS: Glucose,Whole Blood 185 mg/dL (70-110)
[2023-03-21] MEDS ORDERED: ACETAMINOPHEN TAB 325 MG TAB PO PRN (15:15)
--- NOTE | 2023-03-21 15:17 | P.PN ---
Subjective Progress Note Date: 03/21/23 67-year-old male who was recently discharged from the hospital about 2 days ago after hospitalization for acute kidney injury volume overload and acute diastolic CHF and acute hypoxic respiratory failure. Patient was significantly volume overloaded and was started on hemodialysis. Urine output had improved however patient remains significantly volume overloaded and therefore hemodialysis was continued as outpatient. Patient did make it to his first outpatient treatment and stated that he felt quite weak when he went home and he has not been able to perform activities of daily living or to get out of bed. No complaints of new fever nausea vomiting abdominal pain or diarrhea. Shortness of breath not worse Patient continues to have significant swelling in the upper and lower extremities Patient has an indwelling Barkley catheter for urine retention. 03/15/2023 Patient is seen and evaluated sitting up in bedside chair Patient is admitted with acute kidney injury, hemodialysis dependent. Currently sitting up in chair. Urine output about 400 mL in 24 hours. Barkley catheter removed. No evidence of retention. -- On antibiotics for group D enterococcus bacteremia. in form of IV Cefepime and Vancomycin; ID on board; final culture and sensitivity is pending. 03/16/2023 Patient is seen and evaluated and follow-up currently receiving hemodialysis with nephrology and infectious disease following. Patient maintained on IV antibiotics awaiting repeat cultures and cultures from the right chest wall permacath with concerns of dialysis port infection. Patient is being treated for an acute urinary tract infection, present on admission most likely secondary to indwelling Barkley catheter. Barkley catheter has been removed and patient is voiding with no difficulties. Patient will likely receive ultrafiltration dialysis in the a.m. as well. Awaiting PT/OT therapy evaluation and patient will likely be going to [facility] once stabilized discharge. Patient is afebrile with no reported chest pain or worsening shortness of breath. Patient continues on 4 L which he was sent home with previous admission secondary to managing his CHF. Patient denies nausea or vomiting and is tolerating diet. Patient reports the hospital food is not very appetizing. Will continue Accu- Cheks before meals and at bedtime 03/17/2023 Patient seen and evaluated in follow-up this morning continuing on dialysis with nephrology following closely. Hemoglobin was 6.9 today and will give 1 unit of PRBC follow-up with repeat labs in a.m. Patient remains on antibiotics with in fectious disease following as well his blood cultures remained positive for enterococcus. Repeat blood cultures have been ordered again from the [facility] and awaiting finalized cultures. Patient denies chest pain or worsening shortness of breath. Patient continues on 5 L via nasal cannula. No reported nausea or vomiting patient is tolerating diet. Blood sugars are well-controlled at this time. Recommend PT/OT therapy daily as patient will be going to [facility] once stabilized and discharged. 03/18/2023 Patient is seen in follow-up this morning just received dialysis and fatigued although arousable. is at bedside. Hemoglobin has improved to 8.8 after a unit of PRBC yesterday. Patient will likely receive dialysis again tomorrow and will follow-up with repeat labs. Cultures remain positive in multiple cultures have been received and pending from the [facility] site. Infectious disease following. Overall poor prognosis. Patient remains full code. Patient is afebrile denies chest pain or worsening shortness of breath. Patient continues on 5 L via nasal cannula. Blood sugars have been becoming more elevated will add sliding scale. 03/19/2023 Patient is seen in follow-up being followed by nephrology along with infectious disease and vascular surgery consulted and will be having dialysis catheter removed as there is concern for continued contamination with positive blood cultures. Blood cultures remain positive and some samples have been ordered specifically from [facility] although unsure if collected this way. Infectious disease along with nephrology both in agreement that dialysis catheter needs to be removed and patient will have dialysis today and then removed. Awaiting a.m. labs. Patient is continued on vancomycin and will continue for now. Patient is afebrile no reported worsening shortness of breath and denies chest pains. Patient tolerating diet and blood sugars will be continued to be monitored with Accu-Cheks before meals and at bedtime and sliding scale as needed. 03/20/2023 Patient is seen in follow-up this morning is awake and alert sitting up in the chair. Patient and report he was able to walk a few steps to the end of the couch with walker. Patient continues with significant weakness and will be going to rehab once cleared by consultations and would recommend PT/OT therapy daily. Patient did have right chest wall dialysis catheter removed today by vascular surgery and tip was sent for culture. Patient continues to be on vancomycin with infectious disease following and awaiting repeat cultures to finalized. Previous cultures have been still positive for enterococcus. Patient is afebrile and white count is 14 and hemoglobin is currently stable. Patient has no Barkley catheter and has been voiding. Patient denies any pain or burning with urinary frequency. Patient received dialysis yesterday and will not receive dialysis again until Thursday and nephrology is following closely. Follow-up labs ordered for a.m. 03/21/2023 Patient is evaluated today sitting up in the chair. He is being treated for enterococcus bacteremia and remains on IV antibiotics in the form of vancomycin. His most recent blood culture remains positive for enterococcus. He had his right IJ dialysis catheter removed with tip sent for culture. He additionally has a wound to his left mcdermott. Infectious disease is following closely as well as nephrology he is maintained on hemodialysis Thursday. Patient's main complaint is chronic pain for which we will recommend to increase his [place] to [place] 7.5 and recommend to discontinue the morphine due to his renal dysfunction. Labs today showing White Count 12.7, Hemoglobin 8.2, Sodium 1:30, Creatinine 3.78. Review of systems: Constitutional: No reports of fatigue, no fever, or chills Cardiovascular: No reports of chest pain or palpitations Respiratory: No reports of worsening shortness of breath or cough GI: No reports of nausea, vomiting, or diarrhea : No reports of dysuria or retention Neurovascular: reports of generalized weakness and chronic pain All medications have been reviewed Physical exam: Gen: This is a 67-year-old male who is awake, alert and oriented 3, well- developed, obese, ill-appearing, appears older than stated age HEENT: Head is atraumatic, normocephalic. Pupils equal, round. Sclerae is anicteric. NECK: Supple. No JVD. No lymphadenopathy. No thyromegaly. LUNGS: Diminished breath sounds bilaterally with some scattered rhonchi. No intercostal retractions. Recent right catheter on chest wall removed and dressing is dry and intact with no saturation noted HEART: S1, S2 are muffled ABDOMEN: Soft. Obese. Bowel sounds are present. No masses. No tenderness. EXTREMITIES: pedal edema. No calf tenderness. Significant bilateral upper and lower extremity edema. Left lower extremity mcdermott with bullous pemphigus lesion noted NEUROLOGICAL: Patient is awake, alert and oriented x3. Cranial nerves 2 through 12 are grossly intact. Diffusely weak Assessment: Acute renal failure, nonoliguric, acute tubular necrosis secondary to cardiorenal syndrome and hypotension, recently started on dialysis on 02/25/2023 last admission Acute on chronic diastolic congestive heart failure, acute exacerbation Acute on chronic hypoxic respiratory failure, secondary to CHF exacerbation Acute urinary tract infection, present on admission, secondary to indwelling Barkley catheter growing enterococcus Features of sepsis, present on admission secondary to urinary tract infection with bacteremia Anemia, iron deficiency Pressure ulcers, stage II, bilateral buttocks, present on admission History of diabetes mellitus, type II, [id number] Group D enterococcus bacteremia possibly secondary to urinary tract infection also with concerns of possible dialysis catheter infection and cultures from there are pending 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 History of bullous pemphigus, has chronic left lower extremity wound GI prophylaxis DVT prophylaxis Full code Plan: -Patient continues on IV vancomycin for the enterococcus bacteremia repeat blood cultures are pending and also the permacath hasn't removed with the catheter tip pending culture ID is following this closely. -White count remains slightly elevated and will repeat labs. Sodium is slightly low and encouraged oral intake with continued renal diet with restrictions. -Patient has been voiding without a Barkley and will continue to monitor intake and output closely -Continue Accu-Cheks before meals and at bedtime and will continue sliding scale -Continue with PT/OT therapy daily. Case management following and patient will be going to [facility] on stabilized and discharged. Patient will require [facility] authorization -Overall prognosis is poor and guarded -Awaiting cultures to finalize and show clearance of bacteremia prior to discharge planning. Cultures continued positive for group D enterococcus. Nephrology to follow-up on Thursday once cultures have finalized as this was discussed with infectious disease of possibly replacing the permacath after cultures have resulted. The impression and plan of care has been dictated by Riya Welsh, Nurse Practitioner as directed. Dr. Nola MD I have performed a history and physical examination and medical decision making of this patient, discussed the same with the dictator, and agree with the dictators assessment and plan as written, documented as a scribe. Based on total visit time, I have performed more than 50% of this visit. Objective - Vital Signs Vital signs: Vital Signs Temp 98.5 F 03/21/23 06:45 Pulse 84 03/21/23 06:45 Resp 18 03/21/23 06:45 BP 107/66 03/21/23 06:45 Pulse Ox 96 03/21/23 08:21 FiO2 Intake & Output 03/20/23 03/21/23 03/21/23 18:59 06:59 18:59 Intake Total 480 Output Total 500 200 Balance -20 -200 Intake: Oral 480 Output: Urine 500 200 Other: Voiding Method Urinal Urinal # Voids 1 # Bowel Movements 1 - Labs CBC & Chem 7: 03/21/23 07:35 03/21/23 07:35 Labs: Abnormal Lab Results - Last 24 Hours (Table) 03/20/23 03/20/23 03/20/23 Range/Units 11:31 13:08 13:08 WBC 14.8 H (3.8-10.6) k/uL RBC 3.05 L (4.30-5.90) m/uL Hgb 9.1 L (13.0-17.5) gm/dL Hct 29.9 L (39.0-53.0) % MCHC 30.6 L (31.0-37.0) g/dL Neutrophils # 11.9 H (1.3-7.7) k/uL Sodium 129 L (137-145) mmol/L Chloride 95 L (98-107) mmol/L BUN (9-20) mg/dL Creatinine 3.21 H (0.66-1.25) mg/dL Glucose 149 H (74-99) mg/dL POC Glucose (mg/dL) 170 H (70-110) mg/dL Calcium 7.9 L (8.4-10.2) mg/dL 03/20/23 03/20/23 03/21/23 Range/Units 16:33 20:42 05:54 WBC (3.8-10.6) k/uL RBC (4.30-5.90) m/uL Hgb (13.0-17.5) gm/dL Hct (39.0-53.0) % MCHC (31.0-37.0) g/dL Neutrophils # (1.3-7.7) k/uL Sodium (137-145) mmol/L Chloride (98-107) mmol/L BUN (9-20) mg/dL Creatinine (0.66-1.25) mg/dL Glucose (74-99) mg/dL POC Glucose (mg/dL) 131 H 180 H 136 H (70-110) mg/dL Calcium (8.4-10.2) mg/dL 03/21/23 03/21/23 Range/Units 07:35 07:35 WBC 12.7 H (3.8-10.6) k/uL RBC 2.79 L (4.30-5.90) m/uL Hgb 8.2 L (13.0-17.5) gm/dL Hct 27.4 L (39.0-53.0) % MCHC 29.9 L (31.0-37.0) g/dL Neutrophils # 10.0 H (1.3-7.7) k/uL Sodium 130 L (137-145) mmol/L Chloride 96 L (98-107) mmol/L BUN 24 H (9-20) mg/dL Creatinine 3.78 H (0.66-1.25) mg/dL Glucose 138 H (74-99) mg/dL POC Glucose (mg/dL) (70-110) mg/dL Calcium 7.6 L (8.4-10.2) mg/dL Microbiology - Last 24 Hours (Table) 03/18/23 07:35 Blood Culture Gram Stain - Preliminary Blood Blood Culture - Preliminary Group D Enterococcus Assessment and Plan Time with Patient: Less than 30
--- NOTE | 2023-03-21 16:15 | P.PN ---
Subjective Progress Note Date: 03/21/23 Follow-up for acute kidney injury currently dialysis dependent, still oliguric. Objective - Vital Signs Vital signs: Vital Signs Temp 98.7 F 03/21/23 14:05 Pulse 92 03/21/23 14:05 Resp 18 03/21/23 14:05 BP 85/59 03/21/23 14:05 Pulse Ox 95 03/21/23 14:05 FiO2 Intake & Output 03/20/23 03/21/23 03/21/23 18:59 06:59 18:59 Intake Total 480 Output Total 500 200 Balance -20 -200 Intake: Oral 480 Output: Urine 500 200 Other: Voiding Method Urinal Urinal Urinal # Voids 1 # Bowel Movements 1 - Exam No acute distress S1-S2 heard Decreased breath sounds Abdomen soft Right jugular permacath Edema - Labs CBC & Chem 7: 03/21/23 07:35 03/21/23 07:35 Labs: Abnormal Lab Results - Last 24 Hours (Table) 03/20/23 03/20/23 03/21/23 Range/Units 16:33 20:42 05:54 WBC (3.8-10.6) k/uL RBC (4.30-5.90) m/uL Hgb (13.0-17.5) gm/dL Hct (39.0-53.0) % MCHC (31.0-37.0) g/dL Neutrophils # (1.3-7.7) k/uL Sodium (137-145) mmol/L Chloride (98-107) mmol/L BUN (9-20) mg/dL Creatinine (0.66-1.25) mg/dL Glucose (74-99) mg/dL POC Glucose (mg/dL) 131 H 180 H 136 H (70-110) mg/dL Calcium (8.4-10.2) mg/dL 03/21/23 03/21/23 03/21/23 Range/Units 07:35 07:35 11:05 WBC 12.7 H (3.8-10.6) k/uL RBC 2.79 L (4.30-5.90) m/uL Hgb 8.2 L (13.0-17.5) gm/dL Hct 27.4 L (39.0-53.0) % MCHC 29.9 L (31.0-37.0) g/dL Neutrophils # 10.0 H (1.3-7.7) k/uL Sodium 130 L (137-145) mmol/L Chloride 96 L (98-107) mmol/L BUN 24 H (9-20) mg/dL Creatinine 3.78 H (0.66-1.25) mg/dL Glucose 138 H (74-99) mg/dL POC Glucose (mg/dL) 185 H (70-110) mg/dL Calcium 7.6 L (8.4-10.2) mg/dL Microbiology - Last 24 Hours (Table) 03/17/23 10:25 Blood Culture Gram Stain - Final Blood Blood Culture - Final Enterococcus faecalis 03/20/23 08:00 Catheter Tip Culture - Preliminary Catheter Tip 03/18/23 07:35 Blood Culture Gram Stain - Preliminary Blood Blood Culture - Preliminary Group D Enterococcus Assessment and Plan Assessment: #1 acute kidney injury secondary to ATN/CRS, oliguric. -This line creatinine 1.2 MG per DL #2 acute on chronic diastolic CHF. #3 volume overload improving with ultrafiltration #4 group B enterococcus bacteremia Plan: #1 monitor for renal recovery. #2 hemodialysis MWF schedule. #3 continue with diuretics for now
[2023-03-21 16:21] LABS: Glucose,Whole Blood 164 mg/dL (70-110)
--- NOTE | 2023-03-21 16:59 | P.PN ---
Subjective Progress Note Date: 03/21/23 Principal diagnosis: Catheter associated UTI and bacteremia Patient is a 67-year-old male with a past medical history significant for type 2 diabetes mellitus hypertension hyperlipidemia atrial fibrillation with recent diagnosis of renal failure for the patient did have a dialysis catheter placement, presented to hospital with weakness patient noticed to have elevated white count positive UA concerning for catheter since UTI. Patient blood culture subsequently came back positive with Enterococcus. Patient did have removal of the palmar catheter on 03/20/2023 On today's evaluation that is 03/21/2023 the patient continues to be afebrile, patient is breathing comfortably on 4 L nasal cannula oxygen , the patient denies chest pain no worsening cough or sputum production, no nausea vomiting no abdominal pain or diarrhea. Patient did have a hemoglobin of 8.2, wbc down to 12.7 creatinine is 3.21 blood culture from 03/18/2023 also positive, catheter tip and blood cultures on 03/20/2023 currently pending Objective - Vital Signs Vital signs: Vital Signs Temp 98.7 F 03/21/23 14:05 Pulse 92 03/21/23 14:05 Resp 18 03/21/23 14:05 BP 85/59 03/21/23 14:05 Pulse Ox 95 03/21/23 14:05 FiO2 Intake & Output 03/20/23 03/21/23 03/21/23 18:59 06:59 18:59 Intake Total 480 Output Total 500 200 Balance -20 -200 Intake: Oral 480 Output: Urine 500 200 Other: Voiding Method Urinal Urinal Urinal # Voids 1 # Bowel Movements 1 - Exam GENERAL DESCRIPTION: An elderly male lying in bed in no distress RESPIRATORY SYSTEM: Unlabored breathing , decreased breath sounds at bases HEART: S1 S2 regular rate and rhythm , ABDOMEN: Soft , no tenderness EXTREMITIES: No edema feet - Labs CBC & Chem 7: 03/21/23 07:35 03/21/23 07:35 Labs: Abnormal Lab Results - Last 24 Hours (Table) 03/20/23 03/20/23 03/21/23 Range/Units 16:33 20:42 05:54 WBC (3.8-10.6) k/uL RBC (4.30-5.90) m/uL Hgb (13.0-17.5) gm/dL Hct (39.0-53.0) % MCHC (31.0-37.0) g/dL Neutrophils # (1.3-7.7) k/uL Sodium (137-145) mmol/L Chloride (98-107) mmol/L BUN (9-20) mg/dL Creatinine (0.66-1.25) mg/dL Glucose (74-99) mg/dL POC Glucose (mg/dL) 131 H 180 H 136 H (70-110) mg/dL Calcium (8.4-10.2) mg/dL 03/21/23 03/21/23 03/21/23 Range/Units 07:35 07:35 11:05 WBC 12.7 H (3.8-10.6) k/uL RBC 2.79 L (4.30-5.90) m/uL Hgb 8.2 L (13.0-17.5) gm/dL Hct 27.4 L (39.0-53.0) % MCHC 29.9 L (31.0-37.0) g/dL Neutrophils # 10.0 H (1.3-7.7) k/uL Sodium 130 L (137-145) mmol/L Chloride 96 L (98-107) mmol/L BUN 24 H (9-20) mg/dL Creatinine 3.78 H (0.66-1.25) mg/dL Glucose 138 H (74-99) mg/dL POC Glucose (mg/dL) 185 H (70-110) mg/dL Calcium 7.6 L (8.4-10.2) mg/dL Microbiology - Last 24 Hours (Table) 03/17/23 10:25 Blood Culture Gram Stain - Final Blood Blood Culture - Final Enterococcus faecalis 03/20/23 08:00 Catheter Tip Culture - Preliminary Catheter Tip 03/18/23 07:35 Blood Culture Gram Stain - Preliminary Blood Blood Culture - Preliminary Group D Enterococcus Assessment and Plan (1) Bacteremia Current Visit: Yes Status: Acute Code(s): R78.81 - BACTEREMIA SNOMED Code(s): 8544655 (2) UTI (urinary tract infection) Current Visit: Yes Status: Acute Code(s): N39.0 - URINARY TRACT INFECTION, SITE NOT SPECIFIED SNOMED Code(s): 63524276 Plan: 1patient with Enterococcus faecalis bacteremia source possible urinary however underlying permacatheter infection not entirely excluded, Patient did have evidence of persistent bacteremia that is highly suspicious for line related infection 2-patient dialysis catheter was discontinued on 03/20/2023, catheter tip has been sent for the culture blood cultures and those will be followed if blood culture negative at 72 hours will be able to get another permacatheter keeping in mind persistent bacteremia we will also obtain an echocardiogram to make sure no evidence of any vegetation Dictation was produced using [employer] dictation software. please excuse any grammatical, word or spelling errors. Time with Patient: Less than 30
[2023-03-21] MEDS: HYDROcodone/APAP 7.5-325MG 1 EACH TAB PO PRN (17:56)
[2023-03-21 20:24] LABS: Glucose,Whole Blood 130 mg/dL (70-110)
[2023-03-22] MEDS: HYDROcodone/APAP 7.5-325MG 1 EACH TAB PO PRN ×4 (00:05→18:16)
[2023-03-22 05:24] LABS: Glucose,Whole Blood 146 mg/dL (70-110)
[2023-03-22] MEDS: INSULIN ASPART (NovoLOG) 100 UNIT/ML VIAL SQ SCH ×4 (05:41→21:01)
[2023-03-22] MEDS: MIDODRINE 5 MG TAB PO SCH ×3 (06:20→18:17)
[2023-03-22 07:47] LABS: Basophils % (A) 0 %; Eosinophils # (A) 0.5 k/uL (0-0.7); Eosinophils % (A) 4 %; Hypochromasia Marked; Lymphocytes # (A) 1.6 k/uL (1.0-4.8); Lymphocytes % (A) 14 %; MCH 29.9 pg (25.0-35.0); MCHC 30.6 g/dL (31.0-37.0); MCV 97.5 fL (80.0-100.0); Mean Platelet Volume 6.9; Monocytes # (A) 0.9 k/uL (0-1.0); Monocytes % (A) 8 %; Neutrophils # (A) 8.6 k/uL (1.3-7.7); Neutrophils % (A) 72 %; Platelet Count 401 k/uL (150-450); Poikilocytosis Slight; RBC 2.67 m/uL (4.30-5.90); RDW 15.2 % (11.5-15.5)
[2023-03-22 08:10] LABS: African American GFR (CKD) 15 (>60 ml/min/1.73 sqM); Anion Gap 7 mmol/L; Blood Urea Nitrogen 35 mg/dL (9-20); Calcium 7.6 mg/dL (8.4-10.2); Carbon Dioxide 26 mmol/L (22-30); Chloride 98 mmol/L (98-107); Glucose 121 mg/dL (74-99); Magnesium 2.5 mg/dL (1.6-2.3); Non-African American GFR(CKD) 13 (>60 ml/min/1.73 sqM); Potassium 4.5 mmol/L (3.5-5.1); Sodium 131 mmol/L (137-145)
[2023-03-22] MEDS ORDERED: VANCOMYCIN 1,750 MG in SODIUM CHLORIDE 0.9% 500 ML 500 ML IVPB ONE (10:00)
[2023-03-22] MEDS: RIVAROXABAN 20 MG TAB PO SCH (10:07)
[2023-03-22] MEDS: TORSEMIDE 20 MG TAB PO SCH (10:08)
[2023-03-22] MEDS: atenoloL 25 MG TAB PO SCH ×3 (10:08→21:01)
[2023-03-22] MEDS: CHOLECALCIFEROL 125 MCG (5000 IU) TABLET PO SCH (10:08)
[2023-03-22] MEDS: THIAMINE 100 MG TAB PO SCH (10:08)
[2023-03-22] MEDS: ATORVASTATIN 40 MG TAB PO SCH (10:08)
[2023-03-22] MEDS: MAGNESIUM OXIDE 400 MG TAB PO SCH ×2 (10:08→21:01)
[2023-03-22] MEDS: ASPIRIN 81 MG PO SCH (10:08)
[2023-03-22] MEDS: TAMSULOSIN 0.4 MG CAP.ER.24H PO SCH (10:09)
[2023-03-22 11:03] LABS: Glucose,Whole Blood 163 mg/dL (70-110)
--- NOTE | 2023-03-22 12:46 | P.PN ---
Subjective Progress Note Date: 03/22/23 Follow-up for acute kidney injury currently dialysis dependent, still oliguric. Last dialysis on . Objective - Vital Signs Vital signs: Vital Signs Temp 97.8 F 03/22/23 06:40 Pulse 71 03/22/23 06:40 Resp 17 03/22/23 06:40 BP 102/58 03/22/23 06:40 Pulse Ox 100 03/22/23 10:45 FiO2 Intake & Output 03/21/23 03/22/23 03/22/23 18:59 06:59 18:59 Output Total 100 Balance -100 Output: Urine 100 Other: Voiding Method Urinal Urinal # Voids 2 1 - Exam No acute distress S1-S2 heard Decreased breath sounds Abdomen soft Right jugular permacath Edema - Labs CBC & Chem 7: 03/22/23 06:42 03/22/23 06:42 Labs: Abnormal Lab Results - Last 24 Hours (Table) 03/21/23 03/21/23 03/22/23 Range/Units 16:20 20:22 05:23 WBC (3.8-10.6) k/uL RBC (4.30-5.90) m/uL Hgb (13.0-17.5) gm/dL Hct (39.0-53.0) % MCHC (31.0-37.0) g/dL Neutrophils # (1.3-7.7) k/uL Sodium (137-145) mmol/L BUN (9-20) mg/dL Creatinine (0.66-1.25) mg/dL Glucose (74-99) mg/dL POC Glucose (mg/dL) 164 H 130 H 146 H (70-110) mg/dL Calcium (8.4-10.2) mg/dL Magnesium (1.6-2.3) mg/dL 03/22/23 03/22/23 03/22/23 Range/Units 06:42 06:42 11:02 WBC 12.0 H (3.8-10.6) k/uL RBC 2.67 L (4.30-5.90) m/uL Hgb 8.0 L (13.0-17.5) gm/dL Hct 26.0 L (39.0-53.0) % MCHC 30.6 L (31.0-37.0) g/dL Neutrophils # 8.6 H (1.3-7.7) k/uL Sodium 131 L (137-145) mmol/L BUN 35 H (9-20) mg/dL Creatinine 4.23 H (0.66-1.25) mg/dL Glucose 121 H (74-99) mg/dL POC Glucose (mg/dL) 163 H (70-110) mg/dL Calcium 7.6 L (8.4-10.2) mg/dL Magnesium 2.5 H (1.6-2.3) mg/dL Microbiology - Last 24 Hours (Table) 03/18/23 07:35 Blood Culture Gram Stain - Final Blood Blood Culture - Final Enterococcus faecalis 03/20/23 08:00 Catheter Tip Culture - Final Catheter Tip 03/20/23 13:08 Blood Culture - Preliminary Blood 03/17/23 10:25 Blood Culture Gram Stain - Final Blood Blood Culture - Final Enterococcus faecalis Assessment and Plan Assessment: #1 acute kidney injury secondary to ATN/CRS, oliguric. -Base line creatinine 1.2 MG per DL #2 acute on chronic diastolic CHF. #3 volume overload improving with ultrafiltration #4 group B enterococcus bacteremia Plan: #1 monitor for renal recovery. #2 monitor daily labs. Needs Issac/permacath if still needs dialysis once cleared by infectious disease. #3 continue with diuretics for now
--- NOTE | 2023-03-22 14:39 | P.PN ---
Subjective Progress Note Date: 03/22/23 67-year-old male who was recently discharged from the hospital about 2 days ago after hospitalization for acute kidney injury volume overload and acute diastolic CHF and acute hypoxic respiratory failure. Patient was significantly volume overloaded and was started on hemodialysis. Urine output had improved however patient remains significantly volume overloaded and therefore hemodialysis was continued as outpatient. Patient did make it to his first outpatient treatment and stated that he felt quite weak when he went home and he has not been able to perform activities of daily living or to get out of bed. No complaints of new fever nausea vomiting abdominal pain or diarrhea. Shortness of breath not worse Patient continues to have significant swelling in the upper and lower extremities Patient has an indwelling Barkley catheter for urine retention. 03/15/2023 Patient is seen and evaluated sitting up in bedside chair Patient is admitted with acute kidney injury, hemodialysis dependent. Currently sitting up in chair. Urine output about 400 mL in 24 hours. Barkley catheter removed. No evidence of retention. -- On antibiotics for group D enterococcus bacteremia. in form of IV Cefepime and Vancomycin; ID on board; final culture and sensitivity is pending. 03/16/2023 Patient is seen and evaluated and follow-up currently receiving hemodialysis with nephrology and infectious disease following. Patient maintained on IV antibiotics awaiting repeat cultures and cultures from the right chest wall permacath with concerns of dialysis port infection. Patient is being treated for an acute urinary tract infection, present on admission most likely secondary to indwelling Barkley catheter. Barkley catheter has been removed and patient is voiding with no difficulties. Patient will likely receive ultrafiltration dialysis in the a.m. as well. Awaiting PT/OT therapy evaluation and patient will likely be going to [facility] once stabilized discharge. Patient is afebrile with no reported chest pain or worsening shortness of breath. Patient continues on 4 L which he was sent home with previous admission secondary to managing his CHF. Patient denies nausea or vomiting and is tolerating diet. Patient reports the hospital food is not very appetizing. Will continue Accu- Cheks before meals and at bedtime 03/17/2023 Patient seen and evaluated in follow-up this morning continuing on dialysis with nephrology following closely. Hemoglobin was 6.9 today and will give 1 unit of PRBC follow-up with repeat labs in a.m. Patient remains on antibiotics with in fectious disease following as well his blood cultures remained positive for enterococcus. Repeat blood cultures have been ordered again from the [facility] and awaiting finalized cultures. Patient denies chest pain or worsening shortness of breath. Patient continues on 5 L via nasal cannula. No reported nausea or vomiting patient is tolerating diet. Blood sugars are well-controlled at this time. Recommend PT/OT therapy daily as patient will be going to [facility] once stabilized and discharged. 03/18/2023 Patient is seen in follow-up this morning just received dialysis and fatigued although arousable. is at bedside. Hemoglobin has improved to 8.8 after a unit of PRBC yesterday. Patient will likely receive dialysis again tomorrow and will follow-up with repeat labs. Cultures remain positive in multiple cultures have been received and pending from the [facility] site. Infectious disease following. Overall poor prognosis. Patient remains full code. Patient is afebrile denies chest pain or worsening shortness of breath. Patient continues on 5 L via nasal cannula. Blood sugars have been becoming more elevated will add sliding scale. 03/19/2023 Patient is seen in follow-up being followed by nephrology along with infectious disease and vascular surgery consulted and will be having dialysis catheter removed as there is concern for continued contamination with positive blood cultures. Blood cultures remain positive and some samples have been ordered specifically from [facility] although unsure if collected this way. Infectious disease along with nephrology both in agreement that dialysis catheter needs to be removed and patient will have dialysis today and then removed. Awaiting a.m. labs. Patient is continued on vancomycin and will continue for now. Patient is afebrile no reported worsening shortness of breath and denies chest pains. Patient tolerating diet and blood sugars will be continued to be monitored with Accu-Cheks before meals and at bedtime and sliding scale as needed. 03/20/2023 Patient is seen in follow-up this morning is awake and alert sitting up in the chair. Patient and report he was able to walk a few steps to the end of the couch with walker. Patient continues with significant weakness and will be going to rehab once cleared by consultations and would recommend PT/OT therapy daily. Patient did have right chest wall dialysis catheter removed today by vascular surgery and tip was sent for culture. Patient continues to be on vancomycin with infectious disease following and awaiting repeat cultures to finalized. Previous cultures have been still positive for enterococcus. Patient is afebrile and white count is 14 and hemoglobin is currently stable. Patient has no Barkley catheter and has been voiding. Patient denies any pain or burning with urinary frequency. Patient received dialysis yesterday and will not receive dialysis again until Thursday and nephrology is following closely. Follow-up labs ordered for a.m. 03/21/2023 Patient is evaluated today sitting up in the chair. He is being treated for enterococcus bacteremia and remains on IV antibiotics in the form of vancomycin. His most recent blood culture remains positive for enterococcus. He had his right IJ dialysis catheter removed with tip sent for culture. He additionally has a wound to his left mcdermott. Infectious disease is following closely as well as nephrology he is maintained on hemodialysis Thursday. Patient's main complaint is chronic pain for which we will recommend to increase his Everson to Everson 7.5 and recommend to discontinue the morphine due to his renal dysfunction. Labs today showing White Count 12.7, Hemoglobin 8.2, Sodium 1:30, Creatinine 3.78. 03/22/2023 Patient is evaluated today sitting up in the chair. He doesn't report much improvement in his pain although Everson has been increased up to Everson 7.5. Recommending to remain off of morphine at this time. Patient is a hemodialysis patient Thursday as scheduled next receive hemodialysis tomorrow or Thursday. 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 Preliminary culture from the permacath that was removed is negative so far. White count 12.0, hemoglobin 8.0, sodium 131, creatinine 4.23. Review of systems: Constitutional: No reports of fatigue, no fever, or chills Cardiovascular: No reports of chest pain or palpitations Respiratory: No reports of worsening shortness of breath or cough GI: No reports of nausea, vomiting, or diarrhea : No reports of dysuria or retention Neurovascular: reports of generalized weakness and chronic pain All medications have been reviewed Physical exam: Gen: This is a 67-year-old male who is awake, alert and oriented 3, well- developed, obese, ill-appearing, appears older than stated age HEENT: Head is atraumatic, normocephalic. Pupils equal, round. Sclerae is anicteric. NECK: Supple. No JVD. No lymphadenopathy. No thyromegaly. LUNGS: Diminished breath sounds bilaterally with some scattered rhonchi. No intercostal retractions. Recent right catheter on chest wall removed and dressing is dry and intact with no saturation noted HEART: S1, S2 are muffled ABDOMEN: Soft. Obese. Bowel sounds are present. No masses. No tenderness. EXTREMITIES: pedal edema. No calf tenderness. Significant bilateral upper and lower extremity edema. Left lower extremity mcdermott with bullous pemphigus lesion noted NEUROLOGICAL: Patient is awake, alert and oriented x3. Cranial nerves 2 through 12 are grossly intact. Diffusely weak Assessment: Acute renal failure, nonoliguric, acute tubular necrosis secondary to cardiorenal syndrome and hypotension, recently started on dialysis on 02/25/2023 last admission Acute on chronic diastolic congestive heart failure, acute exacerbation Acute on chronic hypoxic respiratory failure, secondary to CHF exacerbation Acute urinary tract infection, present on admission, secondary to indwelling Barkley catheter growing enterococcus Features of sepsis, present on admission secondary to urinary tract infection with bacteremia Anemia, iron deficiency Pressure ulcers, stage II, bilateral buttocks, present on admission History of diabetes mellitus, type II, [id number] Group D enterococcus bacteremia possibly secondary to urinary tract infection also with concerns of possible dialysis catheter infection and cultures from there are pending 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 History of bullous pemphigus, has chronic left lower extremity wound GI prophylaxis DVT prophylaxis Full code Plan: -Patient continues on IV vancomycin for the enterococcus bacteremia repeat blood cultures are pending and also the permacath hasn't removed with the catheter tip pending culture ID is following this closely. -White count remains slightly elevated and will repeat labs. Sodium is slightly low and encouraged oral intake with continued renal diet with restrictions. -Patient has been voiding without a Barkley and will continue to monitor intake and output closely -Continue Accu-Cheks before meals and at bedtime and will continue sliding scale -Continue with PT/OT therapy daily. Case management following and patient will be going to [facility] on stabilized and discharged. Patient will require insurance authorization -Overall prognosis is poor and guarded -Awaiting cultures to finalize and show clearance of bacteremia prior to discharge planning. Cultures continued positive for group D enterococcus. Nephrology to follow-up on Thursday once cultures have finalized as this was discussed with infectious disease of possibly replacing the permacath after cu ltures have resulted. The impression and plan of care has been dictated by Riya Welsh, Nurse Practitioner as directed. Dr. Nola MD I have performed a history and physical examination and medical decision making of this patient, discussed the same with the dictator, and agree with the dictators assessment and plan as written, documented as a scribe. Based on total visit time, I have performed more than 50% of this visit. Objective - Vital Signs Vital signs: Vital Signs Temp 97.8 F 03/22/23 06:40 Pulse 71 03/22/23 06:40 Resp 17 03/22/23 06:40 BP 102/58 03/22/23 06:40 Pulse Ox 100 03/22/23 06:40 FiO2 Intake & Output 03/21/23 03/22/23 03/22/23 18:59 06:59 18:59 Output Total 100 Balance -100 Output: Urine 100 Other: Voiding Method Urinal Urinal # Voids 2 1 - Labs CBC & Chem 7: 03/22/23 06:42 03/22/23 06:42 Labs: Abnormal Lab Results - Last 24 Hours (Table) 03/21/23 03/21/23 03/21/23 Range/Units 07:35 11:05 16:20 WBC (3.8-10.6) k/uL RBC (4.30-5.90) m/uL Hgb (13.0-17.5) gm/dL Hct (39.0-53.0) % MCHC (31.0-37.0) g/dL Neutrophils # (1.3-7.7) k/uL Sodium 130 L (137-145) mmol/L Chloride 96 L (98-107) mmol/L BUN 24 H (9-20) mg/dL Creatinine 3.78 H (0.66-1.25) mg/dL Glucose 138 H (74-99) mg/dL POC Glucose (mg/dL) 185 H 164 H (70-110) mg/dL Calcium 7.6 L (8.4-10.2) mg/dL Magnesium (1.6-2.3) mg/dL 03/21/23 03/22/23 03/22/23 Range/Units 20:22 05:23 06:42 WBC (3.8-10.6) k/uL RBC (4.30-5.90) m/uL Hgb (13.0-17.5) gm/dL Hct (39.0-53.0) % MCHC (31.0-37.0) g/dL Neutrophils # (1.3-7.7) k/uL Sodium 131 L (137-145) mmol/L Chloride (98-107) mmol/L BUN 35 H (9-20) mg/dL Creatinine 4.23 H (0.66-1.25) mg/dL Glucose 121 H (74-99) mg/dL POC Glucose (mg/dL) 130 H 146 H (70-110) mg/dL Calcium 7.6 L (8.4-10.2) mg/dL Magnesium 2.5 H (1.6-2.3) mg/dL 03/22/23 Range/Units 06:42 WBC 12.0 H (3.8-10.6) k/uL RBC 2.67 L (4.30-5.90) m/uL Hgb 8.0 L (13.0-17.5) gm/dL Hct 26.0 L (39.0-53.0) % MCHC 30.6 L (31.0-37.0) g/dL Neutrophils # 8.6 H (1.3-7.7) k/uL Sodium (137-145) mmol/L Chloride (98-107) mmol/L BUN (9-20) mg/dL Creatinine (0.66-1.25) mg/dL Glucose (74-99) mg/dL POC Glucose (mg/dL) (70-110) mg/dL Calcium (8.4-10.2) mg/dL Magnesium (1.6-2.3) mg/dL Microbiology - Last 24 Hours (Table) 03/20/23 13:08 Blood Culture - Preliminary Blood 03/17/23 10:25 Blood Culture Gram Stain - Final Blood Blood Culture - Final Enterococcus faecalis 03/20/23 08:00 Catheter Tip Culture - Preliminary Catheter Tip 03/18/23 07:35 Blood Culture Gram Stain - Preliminary Blood Blood Culture - Preliminary Group D Enterococcus Assessment and Plan Time with Patient: Less than 30
--- NOTE | 2023-03-22 16:00 | P.PN ---
Subjective Progress Note Date: 03/22/23 Principal diagnosis: Catheter associated UTI and bacteremia Patient is a 67-year-old male with a past medical history significant for type 2 diabetes mellitus hypertension hyperlipidemia atrial fibrillation with recent diagnosis of renal failure for the patient did have a dialysis catheter placement, presented to hospital with weakness patient noticed to have elevated white count positive UA concerning for catheter since UTI. Patient blood culture subsequently came back positive with Enterococcus. Patient did have removal of the palmar catheter on 03/20/2023 On today's evaluation that is 03/22/2023 the patient remains to be afebrile, the patient is breathing comfortably on 5 L nasal cannula oxygen. Denies having any chest pain or worsening cough no nausea vomiting no abdominal pain no diarrhea patient complaining of feeling thirsty and wanting about fluid restriction. Patient white count is 12,000 creatinine is 4.23 Vanco random is 18,000 catheter cultures so far negative blood culture 03/20/2023 so far pending Objective - Vital Signs Vital signs: Vital Signs Temp 97.8 F 03/22/23 06:40 Pulse 71 03/22/23 06:40 Resp 17 03/22/23 06:40 BP 102/58 03/22/23 06:40 Pulse Ox 100 03/22/23 10:45 FiO2 Intake & Output 03/21/23 03/22/23 03/22/23 18:59 06:59 18:59 Output Total 100 Balance -100 Output: Urine 100 Other: Voiding Method Urinal Urinal # Voids 2 1 - Exam GENERAL DESCRIPTION: An elderly male lying in bed in no distress RESPIRATORY SYSTEM: Unlabored breathing , decreased breath sounds at bases HEART: S1 S2 regular rate and rhythm , ABDOMEN: Soft , no tenderness EXTREMITIES: No edema feet - Labs CBC & Chem 7: 03/22/23 06:42 03/22/23 06:42 Labs: Abnormal Lab Results - Last 24 Hours (Table) 03/21/23 03/21/23 03/22/23 Range/Units 16:20 20:22 05:23 WBC (3.8-10.6) k/uL RBC (4.30-5.90) m/uL Hgb (13.0-17.5) gm/dL Hct (39.0-53.0) % MCHC (31.0-37.0) g/dL Neutrophils # (1.3-7.7) k/uL Sodium (137-145) mmol/L BUN (9-20) mg/dL Creatinine (0.66-1.25) mg/dL Glucose (74-99) mg/dL POC Glucose (mg/dL) 164 H 130 H 146 H (70-110) mg/dL Calcium (8.4-10.2) mg/dL Magnesium (1.6-2.3) mg/dL 03/22/23 03/22/23 03/22/23 Range/Units 06:42 06:42 11:02 WBC 12.0 H (3.8-10.6) k/uL RBC 2.67 L (4.30-5.90) m/uL Hgb 8.0 L (13.0-17.5) gm/dL Hct 26.0 L (39.0-53.0) % MCHC 30.6 L (31.0-37.0) g/dL Neutrophils # 8.6 H (1.3-7.7) k/uL Sodium 131 L (137-145) mmol/L BUN 35 H (9-20) mg/dL Creatinine 4.23 H (0.66-1.25) mg/dL Glucose 121 H (74-99) mg/dL POC Glucose (mg/dL) 163 H (70-110) mg/dL Calcium 7.6 L (8.4-10.2) mg/dL Magnesium 2.5 H (1.6-2.3) mg/dL Microbiology - Last 24 Hours (Table) 03/18/23 07:35 Blood Culture Gram Stain - Final Blood Blood Culture - Final Enterococcus faecalis 03/20/23 08:00 Catheter Tip Culture - Final Catheter Tip 03/20/23 13:08 Blood Culture - Preliminary Blood 03/17/23 10:25 Blood Culture Gram Stain - Final Blood Blood Culture - Final Enterococcus faecalis Assessment and Plan (1) Bacteremia Current Visit: Yes Status: Acute Code(s): R78.81 - BACTEREMIA SNOMED Code(s): 5424726 (2) UTI (urinary tract infection) Current Visit: Yes Status: Acute Code(s): N39.0 - URINARY TRACT INFECTION, SITE NOT SPECIFIED SNOMED Code(s): 39656006 Plan: 1patient with Enterococcus faecalis bacteremia source possible urinary however underlying permacatheter infection not entirely excluded, Patient did have evidence of persistent bacteremia that is highly suspicious for line related infection 2-patient dialysis catheter was discontinued on 03/20/2023,Catheter tip has been negative so far blood culture repeat on 03/20/2023 so far pending we will wait for those blood culture to be negative at 72 hours before clearing him for placement of another permacatheter also waiting for the echocardiogram and will monitor clinical course closely Dictation was produced using [employer] dictation software. please excuse any grammatical, word or spelling errors. Time with Patient: Less than 30
[2023-03-22 16:13] LABS: Glucose,Whole Blood 153 mg/dL (70-110)
[2023-03-22 20:09] LABS: Glucose,Whole Blood 219 mg/dL (70-110)
[2023-03-23] MEDS: HYDROcodone/APAP 7.5-325MG 1 EACH TAB PO PRN ×4 (00:05→18:23)
[2023-03-23 05:33] LABS: Glucose,Whole Blood 125 mg/dL (70-110)
[2023-03-23] MEDS: MIDODRINE 5 MG TAB PO SCH ×3 (06:11→18:24)
[2023-03-23] MEDS: INSULIN ASPART (NovoLOG) 100 UNIT/ML VIAL SQ SCH ×4 (06:42→20:56)
[2023-03-23] MEDS ORDERED: MELATONIN 5 MG TABLET PO PRN (10:37)
[2023-03-23] MEDS: CHOLECALCIFEROL 125 MCG (5000 IU) TABLET PO SCH (10:38)
[2023-03-23] MEDS: TAMSULOSIN 0.4 MG CAP.ER.24H PO SCH (10:38)
[2023-03-23] MEDS: ATORVASTATIN 40 MG TAB PO SCH (10:38)
[2023-03-23] MEDS: MAGNESIUM OXIDE 400 MG TAB PO SCH ×2 (10:38→22:01)
[2023-03-23] MEDS: THIAMINE 100 MG TAB PO SCH (10:38)
[2023-03-23] MEDS: ASPIRIN 81 MG PO SCH (10:38)
[2023-03-23] MEDS: RIVAROXABAN 20 MG TAB PO SCH (10:39)
[2023-03-23] MEDS: TORSEMIDE 20 MG TAB PO SCH (10:39)
[2023-03-23] MEDS: atenoloL 25 MG TAB PO SCH ×2 (10:45→22:01)
[2023-03-23 10:57] LABS: Glucose,Whole Blood 162 mg/dL (70-110)
--- NOTE | 2023-03-23 12:32 | P.PN ---
Subjective patient is seen for follow-up for acute kidney injury currently hemodialysis dependent. last hemodialysis on 03/19/2023 with UF of 2.7 L. Dialysis catheter discontinued due to bacteremia with Enterococcus faecalis. Repeat blood cultures have been negative from 825 and 03/21/2023 possible placement of dialysis catheter tomorrow with resuming hemodialysis tomorrow. Objective - Vital Signs Vital signs: Vital Signs Temp 97.5 F L 03/23/23 07:59 Pulse 75 03/23/23 07:59 Resp 19 03/23/23 07:59 BP 133/66 03/23/23 07:59 Pulse Ox 99 03/23/23 07:59 FiO2 Intake & Output 03/22/23 03/23/23 03/23/23 18:59 06:59 18:59 Intake Total 240 Output Total 200 200 250 Balance 40 -200 -250 Intake: Oral 240 Output: Urine 200 200 250 Other: Voiding Method Urinal Urinal # Voids 2 # Bowel Movements 1 - Exam patient is awake, comfortable, no acute distress Examination of the heart S1 and S2 Examination of the lungs bilateral breath sounds are heard Abdomen is soft nontender Examination of lower extremities shows edema 2+ bilaterally with chronic skin changes VOLUNTEER RECRUITER exam grossly intact - Labs CBC & Chem 7: 03/22/23 06:42 03/22/23 06:42 Labs: Abnormal Lab Results - Last 24 Hours (Table) 03/22/23 03/22/23 03/23/23 Range/Units 16:12 20:07 05:31 POC Glucose (mg/dL) 153 H 219 H 125 H (70-110) mg/dL 03/23/23 Range/Units 10:56 POC Glucose (mg/dL) 162 H (70-110) mg/dL Microbiology - Last 24 Hours (Table) 03/20/23 13:08 Blood Culture - Preliminary Blood 03/21/23 07:35 Blood Culture - Preliminary Blood 03/18/23 07:35 Blood Culture Gram Stain - Final Blood Blood Culture - Final Enterococcus faecalis 03/20/23 08:00 Catheter Tip Culture - Final Catheter Tip Assessment and Plan Assessment: 1. Acute kidney injury nonoliguric ATN secondary to hypotension, started hemodialysis on 02/25/2023. UA from last hospitalization showed 3+ protein and large blood. Patient remains hemodialysis dependent mostly due to severe volume overload. hemodialysis catheter discontinued due to bacteremia. Awaiting clearance from ID for placement of catheter most likely tomorrow and resuming hemodialysis tomorrow. 2. Volume overload maintained on torsemide and hemodialysis 3. Acute diastolic CHF from last admission currently stable 4. History of acute hypoxic respiratory failure from CHF and volume overload during his last admission few days ago 5. 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 Left kidney nodule to be monitored as outpatient. 7. Generalized weakness 8. Anemia of chronic disease 9. Enterococcus bacteremia status post removal of dialysis catheter. Repeat blood cultures from are negative thus far Plan: hemodialysis in a.m. after catheter has been replaced
--- NOTE | 2023-03-23 13:01 | P.PN ---
Subjective Progress Note Date: 03/23/23 67-year-old male who was recently discharged from the hospital about 2 days ago after hospitalization for acute kidney injury volume overload and acute diastolic CHF and acute hypoxic respiratory failure. Patient was significantly volume overloaded and was started on hemodialysis. Urine output had improved however patient remains significantly volume overloaded and therefore hemodialysis was continued as outpatient. Patient did make it to his first outpatient treatment and stated that he felt quite weak when he went home and he has not been able to perform activities of daily living or to get out of bed. No complaints of new fever nausea vomiting abdominal pain or diarrhea. Shortness of breath not worse Patient continues to have significant swelling in the upper and lower extremities Patient has an indwelling Barkley catheter for urine retention. 03/15/2023 Patient is seen and evaluated sitting up in bedside chair Patient is admitted with acute kidney injury, hemodialysis dependent. Currently sitting up in chair. Urine output about 400 mL in 24 hours. Barkley catheter removed. No evidence of retention. -- On antibiotics for group D enterococcus bacteremia. in form of IV Cefepime and Vancomycin; ID on board; final culture and sensitivity is pending. 03/16/2023 Patient is seen and evaluated and follow-up currently receiving hemodialysis with nephrology and infectious disease following. Patient maintained on IV antibiotics awaiting repeat cultures and cultures from the right chest wall permacath with concerns of dialysis port infection. Patient is being treated for an acute urinary tract infection, present on admission most likely secondary to indwelling Barkley catheter. Barkley catheter has been removed and patient is voiding with no difficulties. Patient will likely receive ultrafiltration dialysis in the a.m. as well. Awaiting PT/OT therapy evaluation and patient will likely be going to [facility] once stabilized discharge. Patient is afebrile with no reported chest pain or worsening shortness of breath. Patient continues on 4 L which he was sent home with previous admission secondary to managing his CHF. Patient denies nausea or vomiting and is tolerating diet. Patient reports the hospital food is not very appetizing. Will continue Accu- Cheks before meals and at bedtime 03/17/2023 Patient seen and evaluated in follow-up this morning continuing on dialysis with nephrology following closely. Hemoglobin was 6.9 today and will give 1 unit of PRBC follow-up with repeat labs in a.m. Patient remains on antibiotics with in fectious disease following as well his blood cultures remained positive for enterococcus. Repeat blood cultures have been ordered again from the [facility] and awaiting finalized cultures. Patient denies chest pain or worsening shortness of breath. Patient continues on 5 L via nasal cannula. No reported nausea or vomiting patient is tolerating diet. Blood sugars are well-controlled at this time. Recommend PT/OT therapy daily as patient will be going to [facility] once stabilized and discharged. 03/18/2023 Patient is seen in follow-up this morning just received dialysis and fatigued although arousable. is at bedside. Hemoglobin has improved to 8.8 after a unit of PRBC yesterday. Patient will likely receive dialysis again tomorrow and will follow-up with repeat labs. Cultures remain positive in multiple cultures have been received and pending from the [facility] site. Infectious disease following. Overall poor prognosis. Patient remains full code. Patient is afebrile denies chest pain or worsening shortness of breath. Patient continues on 5 L via nasal cannula. Blood sugars have been becoming more elevated will add sliding scale. 03/19/2023 Patient is seen in follow-up being followed by nephrology along with infectious disease and vascular surgery consulted and will be having dialysis catheter removed as there is concern for continued contamination with positive blood cultures. Blood cultures remain positive and some samples have been ordered specifically from [facility] although unsure if collected this way. Infectious disease along with nephrology both in agreement that dialysis catheter needs to be removed and patient will have dialysis today and then removed. Awaiting a.m. labs. Patient is continued on vancomycin and will continue for now. Patient is afebrile no reported worsening shortness of breath and denies chest pains. Patient tolerating diet and blood sugars will be continued to be monitored with Accu-Cheks before meals and at bedtime and sliding scale as needed. 03/20/2023 Patient is seen in follow-up this morning is awake and alert sitting up in the chair. Patient and report he was able to walk a few steps to the end of the couch with walker. Patient continues with significant weakness and will be going to rehab once cleared by consultations and would recommend PT/OT therapy daily. Patient did have right chest wall dialysis catheter removed today by vascular surgery and tip was sent for culture. Patient continues to be on vancomycin with infectious disease following and awaiting repeat cultures to finalized. Previous cultures have been still positive for enterococcus. Patient is afebrile and white count is 14 and hemoglobin is currently stable. Patient has no Barkley catheter and has been voiding. Patient denies any pain or burning with urinary frequency. Patient received dialysis yesterday and will not receive dialysis again until Thursday and nephrology is following closely. Follow-up labs ordered for a.m. 03/21/2023 Patient is evaluated today sitting up in the chair. He is being treated for enterococcus bacteremia and remains on IV antibiotics in the form of vancomycin. His most recent blood culture remains positive for enterococcus. He had his right IJ dialysis catheter removed with tip sent for culture. He additionally has a wound to his left mcdermott. Infectious disease is following closely as well as nephrology he is maintained on hemodialysis Thursday. Patient's main complaint is chronic pain for which we will recommend to increase his [place] to [place] 7.5 and recommend to discontinue the morphine due to his renal dysfunction. Labs today showing White Count 12.7, Hemoglobin 8.2, Sodium 1:30, Creatinine 3.78. 03/22/2023 Patient is evaluated today sitting up in the chair. He doesn't report much improvement in his pain although [place] has been increased up to [place] 7.5. Recommending to remain off of morphine at this time. Patient is a hemodialysis patient Thursday as scheduled next receive hemodialysis tomorrow or Thursday. 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 Preliminary culture from the permacath that was removed is negative so far. White count 12.0, hemoglobin 8.0, sodium 131, creatinine 4.23. 03/23/2023 Patient remains in the medical floor. Permacath was removed with tip culture pending pulmonary so far negative as well as repeat blood cultures are negative so far. Patient has had persistent enterococcus bacteremia and also had urine culture showing enterococcus. He remains on antibiotics in the form of IV Vancomycin. He is usually on a hemodialysis schedule Thursday however patient does not have a hemodialysis catheter in place and also has no AV fistula and plan is to tentatively receive a new dialysis catheter tomorrow Thursday at the earliest. Reports pain management has improved with the [place] 7.5. He remains on 5 L of oxygen with a saturation of 99%. Hemodynamically he is stable. Review of systems: Constitutional: No reports of fatigue, no fever, or chills Cardiovascular: No reports of chest pain or palpitations Respiratory: No reports of worsening shortness of breath or cough GI: No reports of nausea, vomiting, or diarrhea : No reports of dysuria or retention Neurovascular: reports of generalized weakness and chronic pain All medications have been reviewed Physical exam: Gen: This is a 67-year-old male who is awake, alert and oriented 3, well- developed, obese, ill-appearing, appears older than stated age HEENT: Head is atraumatic, normocephalic. Pupils equal, round. Sclerae is anicteric. NECK: Supple. No JVD. No lymphadenopathy. No thyromegaly. LUNGS: Diminished breath sounds bilaterally with some scattered rhonchi. No intercostal retractions. Recent right catheter on chest wall removed and dressing is dry and intact with no saturation noted HEART: S1, S2 are muffled ABDOMEN: Soft. Obese. Bowel sounds are present. No masses. No tenderness. EXTREMITIES: pedal edema. No calf tenderness. Significant bilateral upper and lower extremity edema. Left lower extremity mcdermott with bullous pemphigus lesion noted NEUROLOGICAL: Patient is awake, alert and oriented x3. Cranial nerves 2 through 12 are grossly intact. Diffusely weak Assessment: Acute renal failure, nonoliguric, acute tubular necrosis secondary to cardiorenal syndrome and hypotension, recently started on dialysis on 02/25/2023 last admission Acute on chronic diastolic congestive heart failure, acute exacerbation Acute on chronic hypoxic respiratory failure, secondary to CHF exacerbation Acute urinary tract infection, present on admission, secondary to indwelling Barkley catheter growing enterococcus Features of sepsis, present on admission secondary to urinary tract infection with bacteremia Anemia, iron deficiency Pressure ulcers, stage II, bilateral buttocks, present on admission History of diabetes mellitus, type II, [id number] Group D enterococcus bacteremia possibly secondary to urinary tract infection also with concerns of possible dialysis catheter infection and cultures from there are pending 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 History of bullous pemphigus, has chronic left lower extremity wound GI prophylaxis DVT prophylaxis Full code Plan: -Patient continues on IV vancomycin for the enterococcus bacteremia repeat blood cultures are pending and also the permacath has been removed with the catheter tip culture pending. Currently follow-up blood cultures and also a catheter tip culture are negative so far -White count remains slightly elevated and will repeat labs. Sodium is slightly low and encouraged oral intake with continued renal diet with restrictions. -Patient has been voiding without a Barkley and will continue to monitor intake and output closely -Continue Accu-Cheks before meals and at bedtime and will continue sliding scale -Continue with PT/OT therapy daily. Case management following and patient will be going to [facility] on stabilized and discharged. Patient will require insurance authorization -Overall prognosis is poor and guarded -Awaiting cultures to finalize and show clearance of bacteremia prior to discharge planning. Cultures continued positive for group D enterococcus. Nephrology to follow-up on Thursday once cultures have finalized as this was discussed with infectious disease of possibly replacing the permacath after cultures have resulted. Tentative permacath placement on Thursday and patient will be resumed on hemodialysis. The impression and plan of care has been dictated by Nurse Steffi Mo ctitioner as directed. Dr. Nola MD I have performed a history and physical examination and medical decision making of this patient, discussed the same with the dictator, and agree with the dictat ors assessment and plan as written, documented as a scribe. Based on total visit time, I have performed more than 50% of this visit. Objective - Vital Signs Vital signs: Vital Signs Temp 97.5 F L 03/23/23 07:59 Pulse 75 03/23/23 07:59 Resp 19 03/23/23 07:59 BP 133/66 03/23/23 07:59 Pulse Ox 99 03/23/23 07:59 FiO2 Intake & Output 03/22/23 03/23/23 03/23/23 18:59 06:59 18:59 Intake Total 240 Output Total 200 200 250 Balance 40 -200 -250 Intake: Oral 240 Output: Urine 200 200 250 Other: Voiding Method Urinal Urinal # Voids 2 # Bowel Movements 1 - Labs CBC & Chem 7: 03/22/23 06:42 03/22/23 06:42 Labs: Abnormal Lab Results - Last 24 Hours (Table) 03/22/23 03/22/23 03/23/23 Range/Units 16:12 20:07 05:31 POC Glucose (mg/dL) 153 H 219 H 125 H (70-110) mg/dL 03/23/23 Range/Units 10:56 POC Glucose (mg/dL) 162 H (70-110) mg/dL Microbiology - Last 24 Hours (Table) 03/20/23 13:08 Blood Culture - Preliminary Blood 03/21/23 07:35 Blood Culture - Preliminary Blood 03/18/23 07:35 Blood Culture Gram Stain - Final Blood Blood Culture - Final Enterococcus faecalis 03/20/23 08:00 Catheter Tip Culture - Final Catheter Tip Assessment and Plan Time with Patient: Less than 30
[2023-03-23 16:44] LABS: Glucose,Whole Blood 137 mg/dL (70-110)
[2023-03-23 20:43] LABS: Glucose,Whole Blood 143 mg/dL (70-110)
[2023-03-24] MEDS: HYDROcodone/APAP 7.5-325MG 1 EACH TAB PO PRN ×4 (00:16→21:22)
[2023-03-24 06:01] LABS: Glucose,Whole Blood 130 mg/dL (70-110)
[2023-03-24] MEDS: INSULIN ASPART (NovoLOG) 100 UNIT/ML VIAL SQ SCH ×4 (06:03→20:45)
[2023-03-24] MEDS: MIDODRINE 5 MG TAB PO SCH ×3 (06:43→17:13)
--- NOTE | 2023-03-24 07:12 | CA ---
Transthoracic Echo Report Name: Kamran Brandon Age: 67 Gender: M : 1955 Exam Date: 03/23/2023 08:49 Exam Location: [facility] Ht (in): 67 Wt (lb): 250 Ordering Physician: Marely Clemons MD Attending/Referring Phys: Roving Carrier Aleks Griffiths Procedure CPT: Indications: bacteremia Cardiac Hx: Technical Quality: Technically difficult study Contrast 1: Total Dose (mL): Contrast 2: Total Dose (mL): MEASUREMENTS (Male / Female) Normal Values DOPPLER AV Peak Velocity 132.8 cm/s AV Peak Gradient 7.1 mmHg LVOT Peak Velocity 121.6 cm/s LVOT Peak Gradient 5.9 mmHg MV Peak Velocity 148.3 cm/s MV Peak Gradient 8.8 mmHg MV Mean Velocity 61.7 cm/s MV Mean Gradient 2.2 mmHg MV Velocity Time Integral 34.4 cm MR Peak Velocity 415.2 cm/s MR Peak Gradient 68.9 mmHg Mitral E Point Velocity 121.8 cm/s Mitral A Point Velocity 23.0 cm/s Mitral E to A Ratio 5.3 MV Deceleration Time 212.9 ms TR Peak Velocity 101.2 cm/s TR Peak Gradient 4.1 mmHg Right Ventricular Systolic Press 9.3 mmHg PV Peak Velocity 96.8 cm/s PV Peak Gradient 3.7 mmHg FINDINGS Left Ventricle Right Ventricle Right Atrium Left Atrium Mitral Valve Structurally normal mitral valve. Mild MR. Aortic Valve Mild AV calcification. No aortic valve stenosis or regurgitation. Tricuspid Valve Structurally normal tricuspid valve. Trace TR. Pulmonic Valve Pulmonic valve not well visualized. Pericardium Aorta CONCLUSIONS Limited study with attention to valvular structure. The study technically very difficult. Poorly visualized endocardial. Poorly visualized intracardiac valves Aortic sclerosis. Trace aortic insufficiency Mild mitral regurgitation Previewed by: Dr. Jesús Hoskins MD (Electronically Signed) Final Date: 24 March 2023 07:12
[2023-03-24] MEDS: THIAMINE 100 MG TAB PO SCH (08:05)
[2023-03-24] MEDS: atenoloL 25 MG TAB PO SCH ×2 (08:05→21:22)
[2023-03-24] MEDS: TORSEMIDE 20 MG TAB PO SCH (08:05)
[2023-03-24] MEDS: MAGNESIUM OXIDE 400 MG TAB PO SCH ×2 (08:05→21:22)
[2023-03-24] MEDS: TAMSULOSIN 0.4 MG CAP.ER.24H PO SCH (08:05)
[2023-03-24] MEDS: ATORVASTATIN 40 MG TAB PO SCH (08:06)
[2023-03-24] MEDS: ASPIRIN 81 MG PO SCH (08:06)
[2023-03-24] MEDS: CHOLECALCIFEROL 125 MCG (5000 IU) TABLET PO SCH (08:06)
[2023-03-24] MEDS: RIVAROXABAN 20 MG TAB PO SCH (10:19)
[2023-03-24] MEDS ORDERED: FUROSEMIDE 10 MG/ML 10 ML VIAL IV STA (11:09)
--- NOTE | 2023-03-24 11:09 | P.PN ---
Subjective patient is seen for follow-up for acute kidney injury currently hemodialysis dependent. last hemodialysis on 03/19/2023 with UF of 2.7 L. Dialysis catheter discontinued due to bacteremia with Enterococcus faecalis. Repeat blood cultures have been negative from 03/20 and 03/21/2023 Final blood cultures are pending. Patient will likely have the hemodialysis catheter placed again today and is scheduled for dialysis today. Objective - Vital Signs Vital signs: Vital Signs Temp 97.4 F L 03/24/23 07:56 Pulse 68 03/24/23 07:56 Resp 19 03/24/23 07:56 BP 130/44 03/24/23 07:56 Pulse Ox 96 03/24/23 07:56 FiO2 Intake & Output 03/23/23 03/24/23 03/24/23 18:59 06:59 18:59 Output Total 600 250 Balance -600 -250 Weight 113.398 kg Output: Urine 600 250 Other: Voiding Method Urinal - Exam patient is awake, comfortable, no acute distress Examination of the heart S1 and S2 Examination of the lungs bilateral breath sounds are heard Abdomen is soft nontender Examination of lower extremities shows edema 2+ bilaterally with chronic skin changes MANAGER CONTENT exam grossly intact - Labs CBC & Chem 7: 03/22/23 06:42 03/22/23 06:42 Labs: Abnormal Lab Results - Last 24 Hours (Table) 03/23/23 03/23/23 03/24/23 Range/Units 16:43 20:37 05:53 POC Glucose (mg/dL) 137 H 143 H 130 H (70-110) mg/dL Microbiology - Last 24 Hours (Table) 03/20/23 13:08 Blood Culture - Preliminary Blood 03/21/23 07:35 Blood Culture - Preliminary Blood Assessment and Plan Assessment: 1. Acute kidney injury nonoliguric ATN secondary to hypotension, started hemodialysis on 02/25/2023. UA from last hospitalization showed 3+ protein and large blood. Patient remains hemodialysis dependent mostly due to severe volume overload. hemodialysis catheter discontinued due to bacteremia. Awaiting clearance from ID for placement of catheter most likely today and resuming hemodialysis today. 2. Volume overload maintained on torsemide and hemodialysis 3. Acute diastolic CHF from last admission currently stable 4. History of acute hypoxic respiratory failure from CHF and volume overload during his last admission few days ago 5. 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 Left kidney nodule to be monitored as outpatient. 7. Generalized weakness 8. Anemia of chronic disease 9. Enterococcus bacteremia status post removal of dialysis catheter. Repeat blood cultures from are negative thus far Plan: hemodialysis today after catheter has been replaced IV Lasix
[2023-03-24 12:01] LABS: Glucose,Whole Blood 148 mg/dL (70-110)
[2023-03-24] MEDS: LIDOCAINE 1% INJ 10MG/ML (20 ML MDV) SQ ONE ×2 (14:27→15:02)
--- NOTE | 2023-03-24 15:09 | P.PN ---
Subjective Progress Note Date: 03/23/23 Principal diagnosis: Catheter associated UTI and bacteremia Patient is a 67-year-old male with a past medical history significant for type 2 diabetes mellitus hypertension hyperlipidemia atrial fibrillation with recent diagnosis of renal failure for the patient did have a dialysis catheter placement, presented to hospital with weakness patient noticed to have elevated white count positive UA concerning for catheter since UTI. Patient blood culture subsequently came back positive with Enterococcus. Patient did have removal of the palmar catheter on 03/20/2023 On today's evaluation that is 03/23/2023 the patient continues to be afebrile, the patient is breathing comfortably on 5 L nasal cannula oxygen. The patient denies having any chest pain or worsening cough and no sputum production, no nausea vomiting no abdominal pain no diarrhea patient complaining of feeling thirsty and wanting about fluid restriction. Patient white count is 12,000 creatinine is 4.23 as of 03/22/2023, catheter cultures so far negative blood culture 03/20/2023 and 03/21/2023 so far pending Objective - Vital Signs Vital signs: Vital Signs Temp 97.5 F L 03/23/23 07:59 Pulse 75 03/23/23 07:59 Resp 19 03/23/23 07:59 BP 133/66 03/23/23 07:59 Pulse Ox 99 03/23/23 07:59 FiO2 Intake & Output 03/22/23 03/23/23 03/23/23 18:59 06:59 18:59 Intake Total 240 Output Total 200 200 250 Balance 40 -200 -250 Intake: Oral 240 Output: Urine 200 200 250 Other: Voiding Method Urinal Urinal # Voids 2 # Bowel Movements 1 - Exam GENERAL DESCRIPTION: An elderly male lying in bed in no distress RESPIRATORY SYSTEM: Unlabored breathing , decreased breath sounds at bases HEART: S1 S2 regular rate and rhythm , ABDOMEN: Soft , no tenderness EXTREMITIES: No edema feet - Labs CBC & Chem 7: 03/22/23 06:42 03/22/23 06:42 Labs: Abnormal Lab Results - Last 24 Hours (Table) 03/22/23 03/22/23 03/23/23 Range/Units 16:12 20:07 05:31 POC Glucose (mg/dL) 153 H 219 H 125 H (70-110) mg/dL 03/23/23 Range/Units 10:56 POC Glucose (mg/dL) 162 H (70-110) mg/dL Microbiology - Last 24 Hours (Table) 03/20/23 13:08 Blood Culture - Preliminary Blood 03/21/23 07:35 Blood Culture - Preliminary Blood 03/18/23 07:35 Blood Culture Gram Stain - Final Blood Blood Culture - Final Enterococcus faecalis 03/20/23 08:00 Catheter Tip Culture - Final Catheter Tip Assessment and Plan (1) Bacteremia Current Visit: Yes Status: Acute Code(s): R78.81 - BACTEREMIA SNOMED Code(s): 7823756 (2) UTI (urinary tract infection) Current Visit: Yes Status: Acute Code(s): N39.0 - URINARY TRACT INFECTION, SITE NOT SPECIFIED SNOMED Code(s): 36131057 Plan: 1patient with Enterococcus faecalis bacteremia source possible urinary however underlying permacatheter infection not entirely excluded, Patient did have evidence of persistent bacteremia that is highly suspicious for line related infection 2-patient dialysis catheter was discontinued on 03/20/2023,Catheter tip has been negative so far blood culture repeat on 03/20/2023 as well as 03/21/2023, so far pending echocardiogram did not show any vegetation however it was a poor study 3-if the blood culture drawn on 03/20/2023 remains to be negative by the morning he should be able to get his dialysis catheter, this was discussed in detail wi th the patient nurse Dictation was produced using [employer] dictation software. please excuse any gramm atical, word or spelling errors. Time with Patient: Less than 30
--- NOTE | 2023-03-24 15:10 | P.PN ---
Subjective Progress Note Date: 03/24/23 67-year-old male who was recently discharged from the hospital about 2 days ago after hospitalization for acute kidney injury volume overload and acute diastolic CHF and acute hypoxic respiratory failure. Patient was significantly volume overloaded and was started on hemodialysis. Urine output had improved however patient remains significantly volume overloaded and therefore hemodialysis was continued as outpatient. Patient did make it to his first outpatient treatment and stated that he felt quite weak when he went home and he has not been able to perform activities of daily living or to get out of bed. No complaints of new fever nausea vomiting abdominal pain or diarrhea. Shortness of breath not worse Patient continues to have significant swelling in the upper and lower extremities Patient has an indwelling Barkley catheter for urine retention. 03/15/2023 Patient is seen and evaluated sitting up in bedside chair Patient is admitted with acute kidney injury, hemodialysis dependent. Currently sitting up in chair. Urine output about 400 mL in 24 hours. Barkley catheter removed. No evidence of retention. -- On antibiotics for group D enterococcus bacteremia. in form of IV Cefepime and Vancomycin; ID on board; final culture and sensitivity is pending. 03/16/2023 Patient is seen and evaluated and follow-up currently receiving hemodialysis with nephrology and infectious disease following. Patient maintained on IV antibiotics awaiting repeat cultures and cultures from the right chest wall permacath with concerns of dialysis port infection. Patient is being treated for an acute urinary tract infection, present on admission most likely secondary to indwelling Barkley catheter. Barkley catheter has been removed and patient is voiding with no difficulties. Patient will likely receive ultrafiltration dialysis in the a.m. as well. Awaiting PT/OT therapy evaluation and patient will likely be going to [facility] once stabilized discharge. Patient is afebrile with no reported chest pain or worsening shortness of breath. Patient continues on 4 L which he was sent home with previous admission secondary to managing his CHF. Patient denies nausea or vomiting and is tolerating diet. Patient reports the hospital food is not very appetizing. Will continue Accu- Cheks before meals and at bedtime 03/17/2023 Patient seen and evaluated in follow-up this morning continuing on dialysis with nephrology following closely. Hemoglobin was 6.9 today and will give 1 unit of PRBC follow-up with repeat labs in a.m. Patient remains on antibiotics with in fectious disease following as well his blood cultures remained positive for enterococcus. Repeat blood cultures have been ordered again from the [facility] and awaiting finalized cultures. Patient denies chest pain or worsening shortness of breath. Patient continues on 5 L via nasal cannula. No reported nausea or vomiting patient is tolerating diet. Blood sugars are well-controlled at this time. Recommend PT/OT therapy daily as patient will be going to [facility] once stabilized and discharged. 03/18/2023 Patient is seen in follow-up this morning just received dialysis and fatigued although arousable. is at bedside. Hemoglobin has improved to 8.8 after a unit of PRBC yesterday. Patient will likely receive dialysis again tomorrow and will follow-up with repeat labs. Cultures remain positive in multiple cultures have been received and pending from the [facility] site. Infectious disease following. Overall poor prognosis. Patient remains full code. Patient is afebrile denies chest pain or worsening shortness of breath. Patient continues on 5 L via nasal cannula. Blood sugars have been becoming more elevated will add sliding scale. 03/19/2023 Patient is seen in follow-up being followed by nephrology along with infectious disease and vascular surgery consulted and will be having dialysis catheter removed as there is concern for continued contamination with positive blood cultures. Blood cultures remain positive and some samples have been ordered specifically from [facility] although unsure if collected this way. Infectious disease along with nephrology both in agreement that dialysis catheter needs to be removed and patient will have dialysis today and then removed. Awaiting a.m. labs. Patient is continued on vancomycin and will continue for now. Patient is afebrile no reported worsening shortness of breath and denies chest pains. Patient tolerating diet and blood sugars will be continued to be monitored with Accu-Cheks before meals and at bedtime and sliding scale as needed. 03/20/2023 Patient is seen in follow-up this morning is awake and alert sitting up in the chair. Patient and report he was able to walk a few steps to the end of the couch with walker. Patient continues with significant weakness and will be going to rehab once cleared by consultations and would recommend PT/OT therapy daily. Patient did have right chest wall dialysis catheter removed today by vascular surgery and tip was sent for culture. Patient continues to be on vancomycin with infectious disease following and awaiting repeat cultures to finalized. Previous cultures have been still positive for enterococcus. Patient is afebrile and white count is 14 and hemoglobin is currently stable. Patient has no Barkley catheter and has been voiding. Patient denies any pain or burning with urinary frequency. Patient received dialysis yesterday and will not receive dialysis again until Thursday and nephrology is following closely. Follow-up labs ordered for a.m. 03/21/2023 Patient is evaluated today sitting up in the chair. He is being treated for enterococcus bacteremia and remains on IV antibiotics in the form of vancomycin. His most recent blood culture remains positive for enterococcus. He had his right IJ dialysis catheter removed with tip sent for culture. He additionally has a wound to his left mcdermott. Infectious disease is following closely as well as nephrology he is maintained on hemodialysis Thursday. Patient's main complaint is chronic pain for which we will recommend to increase his Stamford to Stamford 7.5 and recommend to discontinue the morphine due to his renal dysfunction. Labs today showing White Count 12.7, Hemoglobin 8.2, Sodium 1:30, Creatinine 3.78. 03/22/2023 Patient is evaluated today sitting up in the chair. He doesn't report much improvement in his pain although Stamford has been increased up to Stamford 7.5. Recommending to remain off of morphine at this time. Patient is a hemodialysis patient Thursday as scheduled next receive hemodialysis tomorrow or Thursday. 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 Preliminary culture from the permacath that was removed is negative so far. White count 12.0, hemoglobin 8.0, sodium 131, creatinine 4.23. 03/23/2023 Patient remains in the medical floor. Permacath was removed with tip culture pending pulmonary so far negative as well as repeat blood cultures are negative so far. Patient has had persistent enterococcus bacteremia and also had urine culture showing enterococcus. He remains on antibiotics in the form of IV Vancomycin. He is usually on a hemodialysis schedule Thursday however patient does not have a hemodialysis catheter in place and also has no AV fistula and plan is to tentatively receive a new dialysis catheter tomorrow Thursday at the earliest. Reports pain management has improved with the Stamford 7.5. He remains on 5 L of oxygen with a saturation of 99%. Hemodynamically he is stable. 03/24/2023 Patient is seen this morning in follow-up and discussed with micro-lab about clearance of bacteremia and most recent blood cultures and catheter tip from [facility] have been negative for 72 hours. Infectious disease following and has cleared the patient for dialysis catheter placement today. Dr. Cano following and will be replacing and patient needs dialysis. Nephrology following and patient will have dialysis once the catheter is placed. Patient reporting increased shortness of breath most likely due to requiring dialysis as patient has not had since . Patient continues on IV antibiotics in the form of vancomycin with infectious disease following and will continue. Patient also to continue with local wound care and offloading to the sacral area and elevating lower extremities at rest. Patient continues on 6 L via nasal cannula and has been wearing 5 L chronically since last admission. Patient to work with physical therapy and is agreeable to rehab. Will discuss further with consultations about discharge planning once patient receives dialysis catheter. Patient is currently afebrile with no reported chest pain or palpitations. Maya ent is tolerating diet with no reported nausea or vomiting. Review of systems: Constitutional: No reports of fatigue, no fever, or chills Cardiovascular: No reports of chest pain or palpitations Respiratory: reports of worsening shortness of breath with difficulty in breathing GI: No reports of nausea, vomiting, or diarrhea : No reports of dysuria or retention Neurovascular: reports of generalized weakness All medications have been reviewed Physical exam: Gen: This is a 67-year-old male who is awake, alert and oriented 3, well- developed, obese, ill-appearing, appears older than stated age HEENT: Head is atraumatic, normocephalic. Pupils equal, round. Sclerae is anicteric. NECK: Supple. No JVD. No lymphadenopathy. No thyromegaly. LUNGS: Diminished breath sounds bilaterally with some scattered rhonchi. No intercostal retractions. Recent right catheter on chest wall removed and dressing is dry and intact with no saturation noted HEART: S1, S2 are muffled ABDOMEN: Soft. Obese. Bowel sounds are present. No masses. No tenderness. EXTREMITIES: pedal edema. No calf tenderness. Significant bilateral upper and lower extremity edema. Left lower extremity mcdermott with bullous pemphigus lesion noted NEUROLOGICAL: Patient is awake, alert and oriented x3. Cranial nerves 2 through 12 are grossly intact. Diffusely weak Assessment: Acute renal failure, nonoliguric, acute tubular necrosis secondary to cardiorenal syndrome and hypotension, recently started on dialysis on 02/25/2023 last admission Acute on chronic diastolic congestive heart failure, acute exacerbation Acute on chronic hypoxic respiratory failure, secondary to CHF exacerbation Acute urinary tract infection, present on admission, secondary to indwelling Barkley catheter growing enterococcus Features of sepsis, present on admission secondary to urinary tract infection with bacteremia Anemia, iron deficiency Pressure ulcers, stage II, bilateral buttocks, present on admission History of diabetes mellitus, type II, ato-gigxjtu-bsiofibiy Group D enterococcus bacteremia possibly secondary to urinary tract infection also with concerns of possible dialysis catheter infection and cultures from there are pending 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 History of bullous pemphigus, has chronic left lower extremity wound GI prophylaxis DVT prophylaxis Full code Plan: -Patient continues on IV vancomycin for the enterococcus bacteremia repeat blood cultures have been negative for the last 48-72 hours and permacath culture tip was negative as well -Infectious disease following inpatient to receive another permacath dialysis catheter placement. Patient needs dialysis with nephrology following and will order once patient receives catheter. Melissa on hold and Dr. Cano to place another catheter today -White count remains slightly elevated and will repeat labs. Sodium is slightly low and encouraged oral intake with continued renal diet with restrictions. -Patient has been voiding without a Barkley and will continue to monitor intake and output closely -Continue Accu-Cheks before meals and at bedtime and will continue sliding scale -Continue with PT/OT therapy daily. Case management following and patient will be going to [facility] on stabilized and discharged. Patient will require insurance authorization and will discuss with consultations once patient received another catheter for dialysis -Overall prognosis is poor and guarded -We'll discuss further with case management along with infectious disease and nephrology about discharge planning to [facility] The impression and plan of care has been dictated by Sandra Ayala, Nurse Practitioner as directed. Dr. Nola MD I have performed a history and examination and MDM of this patient, discussed the same with the dictator, and agree with the dictator's assessment and plan as written ,documented as a scribe. Based on total visit time, I have performed more than 50% of the visit. Objective - Vital Signs Vital signs: Vital Signs Temp 97.4 F L 03/24/23 07:56 Pulse 68 03/24/23 07:56 Resp 19 03/24/23 07:56 BP 130/44 03/24/23 07:56 Pulse Ox 96 03/24/23 07:56 FiO2 Intake & Output 03/23/23 03/24/23 03/24/23 18:59 06:59 18:59 Output Total 600 250 Balance -600 -250 Weight 113.398 kg Output: Urine 600 250 Other: Voiding Method Urinal - Labs CBC & Chem 7: 03/22/23 06:42 03/22/23 06:42 Labs: Abnormal Lab Results - Last 24 Hours (Table) 03/23/23 03/23/23 03/23/23 Range/Units 10:56 16:43 20:37 POC Glucose (mg/dL) 162 H 137 H 143 H (70-110) mg/dL 03/24/23 Range/Units 05:53 POC Glucose (mg/dL) 130 H (70-110) mg/dL Microbiology - Last 24 Hours (Table) 03/20/23 13:08 Blood Culture - Preliminary Blood 03/21/23 07:35 Blood Culture - Preliminary Blood
--- NOTE | 2023-03-24 15:11 | P.PN ---
Subjective Progress Note Date: 03/24/23 Principal diagnosis: Catheter associated UTI and bacteremia Patient is a 67-year-old male with a past medical history significant for type 2 diabetes mellitus hypertension hyperlipidemia atrial fibrillation with recent diagnosis of renal failure for the patient did have a dialysis catheter placement, presented to hospital with weakness patient noticed to have elevated white count positive UA concerning for catheter since UTI. Patient blood culture subsequently came back positive with Enterococcus. Patient did have removal of the palmar catheter on 03/20/2023 On today's evaluation that is 03/24/2023 the patient remains to be afebrile, the patient is complaining of more shortness of breath today and is currently on 6L nasal cannula oxygen. The patient denies having any chest pain or worsening cough and no sputum production, the patient denies nausea vomiting no abdominal pain no diarrhea patient complaining of feeling thirsty and wanting about fluid restriction. Patient white count is 12,000 creatinine is 4.23 as of 03/22/2023 no blood draw today, catheter cultures so far negative blood culture 03/20/2023 and 03/21/2023 so far negative Objective - Vital Signs Vital signs: Vital Signs Temp 97.4 F L 03/24/23 07:56 Pulse 68 03/24/23 07:56 Resp 19 03/24/23 07:56 BP 130/44 03/24/23 07:56 Pulse Ox 96 03/24/23 07:56 FiO2 Intake & Output 03/23/23 03/24/23 03/24/23 18:59 06:59 18:59 Output Total 600 250 Balance -600 -250 Weight 113.398 kg Output: Urine 600 250 Other: Voiding Method Urinal - Exam GENERAL DESCRIPTION: An elderly male lying in bed in no distress RESPIRATORY SYSTEM: Unlabored breathing , decreased breath sounds at bases HEART: S1 S2 regular rate and rhythm , ABDOMEN: Soft , no tenderness EXTREMITIES: No edema feet - Labs CBC & Chem 7: 03/22/23 06:42 03/22/23 06:42 Labs: Abnormal Lab Results - Last 24 Hours (Table) 03/23/23 03/23/23 03/24/23 Range/Units 16:43 20:37 05:53 POC Glucose (mg/dL) 137 H 143 H 130 H (70-110) mg/dL Microbiology - Last 24 Hours (Table) 03/20/23 13:08 Blood Culture - Preliminary Blood 03/21/23 07:35 Blood Culture - Preliminary Blood Assessment and Plan (1) Bacteremia Current Visit: Yes Status: Acute Code(s): R78.81 - BACTEREMIA SNOMED Code(s): 9483840 (2) UTI (urinary tract infection) Current Visit: Yes Status: Acute Code(s): N39.0 - URINARY TRACT INFECTION, SITE NOT SPECIFIED SNOMED Code(s): 28772702 Plan: 1patient with Enterococcus faecalis bacteremia source possible urinary however underlying permacatheter infection not entirely excluded, Patient did have evidence of persistent bacteremia that is highly suspicious for line related infection 2-patient dialysis catheter was discontinued on 03/20/2023,Catheter tip has been negative so far blood culture repeat on 03/20/2023 as well as 03/21/2023, so far pending echocardiogram did not show any vegetation however it was a poor study 3-patient seemed to have cleared his bacteremia as a blood culture drawn on 03/20/2023 remains to be negative he should be able to get dialysis catheter placement today for dialysis Dictation was produced using [employer] dictation software. please excuse any grammatical, word or spelling errors. Time with Patient: Less than 30
--- NOTE | 2023-03-24 15:45 | IR ---
EXAMINATION TYPE: IR cvc insert central tunneled DATE OF EXAM: 03/24/2023 COMPARISON: NONE HISTORY: Fluoroscopy time. Fluoroscopy was provided to the referring clinician.
[2023-03-24 16:48] LABS: Glucose,Whole Blood 102 mg/dL (70-110)
--- NOTE | 2023-03-24 16:55 | XR ---
EXAMINATION TYPE: XR chest 1V DATE OF EXAM: 03/24/2023 HISTORY: Shortness of breath. COMPARISON: 03/12/2023 TECHNIQUE: Single view of the chest is submitted. FINDINGS: Demonstrated are scattered senescent parenchymal change. Right IJ central venous line with distal tip overlying the SVC. No evidence for pneumothorax. Basilar infiltrates, atelectasis and/or pleural effusions right greater than left. The heart is stable. Hilar and mediastinal structures are within normal limits. Degenerative changes are seen of the dorsal spine. IMPRESSION: 1. Right IJ central venous line with distal tip overlying the SVC. No evidence for pneumothorax. Bas ilar infiltrates, atelectasis and/or pleural effusions right greater than left.
[2023-03-24 19:05] LABS: African American GFR (CKD) 16 (>60 ml/min/1.73 sqM); Anion Gap 6 mmol/L; Blood Urea Nitrogen 46 mg/dL (9-20); Calcium 7.5 mg/dL (8.4-10.2); Carbon Dioxide 25 mmol/L (22-30); Chloride 98 mmol/L (98-107); Glucose 117 mg/dL (74-99); Non-African American GFR(CKD) 13 (>60 ml/min/1.73 sqM); Potassium 5.5 mmol/L (3.5-5.1); Sodium 129 mmol/L (137-145)
[2023-03-24 20:35] LABS: Glucose,Whole Blood 110 mg/dL (70-110)
[2023-03-25] MEDS: HYDROcodone/APAP 7.5-325MG 1 EACH TAB PO PRN ×5 (00:40→21:07)
[2023-03-25 05:56] LABS: Glucose,Whole Blood 130 mg/dL (70-110)
[2023-03-25] MEDS: INSULIN ASPART (NovoLOG) 100 UNIT/ML VIAL SQ SCH ×4 (06:07→21:12)
[2023-03-25] MEDS: MIDODRINE 5 MG TAB PO SCH ×3 (06:36→17:23)
[2023-03-25 07:42] LABS: African American GFR (CKD) 21 (>60 ml/min/1.73 sqM); Anion Gap 4 mmol/L; Blood Urea Nitrogen 34 mg/dL (9-20); Calcium 7.4 mg/dL (8.4-10.2); Carbon Dioxide 27 mmol/L (22-30); Chloride 99 mmol/L (98-107); Glucose 126 mg/dL (74-99); Non-African American GFR(CKD) 18 (>60 ml/min/1.73 sqM); Potassium 5.2 mmol/L (3.5-5.1); Sodium 130 mmol/L (137-145)
[2023-03-25] MEDS ORDERED: VANCOMYCIN 1,750 MG in SODIUM CHLORIDE 0.9% 500 ML 500 ML IVPB ONE ×2 (10:00→16:00)
--- NOTE | 2023-03-25 11:46 | P.PN ---
Subjective patient is seen for follow-up for acute kidney injury currently hemodialysis dependent. last hemodialysis on 03/19/2023 with UF of 2.7 L. Dialysis catheter discontinued due to bacteremia with Enterococcus faecalis. Repeat blood cultures have been negative from 03/20 and 03/21/2023 Status post new catheter placement yesterday and hemodialysis yesterday. UF 2.5 L Patient is seen on hemodialysis today. No significant complaints. Respiratory status much improved. Objective - Vital Signs Vital signs: Vital Signs Temp 98.1 F 03/25/23 07:47 Pulse 83 03/25/23 07:47 Resp 20 03/25/23 07:47 BP 129/71 03/25/23 07:47 Pulse Ox 99 03/25/23 07:47 FiO2 Intake & Output 03/24/23 03/25/23 03/25/23 18:59 06:59 18:59 Intake Total 500 Output Total 350 2800 Balance -350 -2300 Intake: Hemodialysis 500 Output: Urine 350 300 Hemodialysis 2500 Other: Voiding Method Urinal Urinal # Bowel Movements 1 - Exam patient is awake, comfortable, no acute distress Examination of the heart S1 and S2 Examination of the lungs bilateral breath sounds are heard Abdomen is soft nontender Examination of lower extremities shows edema 2+ bilaterally with chronic skin changes [employer] 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 grossly intact - Labs CBC & Chem 7: 03/22/23 06:42 03/25/23 06:54 Labs: Abnormal Lab Results - Last 24 Hours (Table) 03/24/23 03/24/23 03/25/23 Range/Units 12:00 17:00 05:53 Sodium 129 L (137-145) mmol/L Potassium 5.5 H (3.5-5.1) mmol/L BUN 46 H (9-20) mg/dL Creatinine 4.21 H (0.66-1.25) mg/dL Glucose 117 H (74-99) mg/dL POC Glucose (mg/dL) 148 H 130 H (70-110) mg/dL Calcium 7.5 L (8.4-10.2) mg/dL 03/25/23 Range/Units 06:54 Sodium 130 L (137-145) mmol/L Potassium 5.2 H (3.5-5.1) mmol/L BUN 34 H (9-20) mg/dL Creatinine 3.32 H (0.66-1.25) mg/dL Glucose 126 H (74-99) mg/dL POC Glucose (mg/dL) (70-110) mg/dL Calcium 7.4 L (8.4-10.2) mg/dL Microbiology - Last 24 Hours (Table) 03/21/23 07:35 Blood Culture - Preliminary Blood Assessment and Plan Assessment: 1. Acute kidney injury nonoliguric ATN secondary to hypotension, started hemodialysis on 02/25/2023. UA from last hospitalization showed 3+ protein and large blood. Patient remains hemodialysis dependent mostly due to severe volume overload. hemodialysis catheter discontinued due to bacteremia. Status post new catheter placement 03/24/2023 2. Volume overload maintained on torsemide and hemodialysis 3. Acute diastolic CHF from last admission currently stable 4. History of acute hypoxic respiratory failure from CHF and volume overload during his last admission few days ago 5. 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 Left kidney nodule to be monitored as outpatient. 7. Generalized weakness 8. Anemia of chronic disease 9. Enterococcus bacteremia status post removal of dialysis catheter. Repeat blood cultures from are negative thus far Plan: hemodialysis today with goal UF about 2 L Decrease Tenormin to once a day
[2023-03-25 11:56] LABS: Glucose,Whole Blood 129 mg/dL (70-110)
--- NOTE | 2023-03-25 12:55 | P.PN ---
Subjective Progress Note Date: 03/25/23 Principal diagnosis: Catheter associated UTI and bacteremia Patient is a 67-year-old male with a past medical history significant for type 2 diabetes mellitus hypertension hyperlipidemia atrial fibrillation with recent diagnosis of renal failure for the patient did have a dialysis catheter placement, presented to hospital with weakness patient noticed to have elevated white count positive UA concerning for catheter since UTI. Patient blood culture subsequently came back positive with Enterococcus. Patient did have removal of the palmar catheter on 03/20/2023, patient did have a new permacath placement on 03/24/2023 On today's evaluation that is 03/25/2023 the patient continues to be afebrile, the patient is breathing comfortably today and is currently on 6L nasal cannula oxygen. The patient denies having any chest pain or worsening cough or sputum production, the patient denies nausea vomiting no abdominal pain no diarrhea has been reported Patient white count is 12,000 creatinine is 4.23 as of 03/22/2023 , creatinine is 3.32 today, catheter cultures so far negative blood culture 03/20/2023 and 03/21/2023 so far negative Objective - Vital Signs Vital signs: Vital Signs Temp 98.1 F 03/25/23 07:47 Pulse 83 03/25/23 07:47 Resp 20 03/25/23 07:47 BP 129/71 03/25/23 07:47 Pulse Ox 99 03/25/23 07:47 FiO2 Intake & Output 03/24/23 03/25/23 03/25/23 18:59 06:59 18:59 Intake Total 500 Output Total 350 2800 Balance -350 -2300 Intake: Hemodialysis 500 Output: Urine 350 300 Hemodialysis 2500 Other: Voiding Method Urinal Urinal # Bowel Movements 1 - Exam GENERAL DESCRIPTION: An elderly male lying in bed in no distress RESPIRATORY SYSTEM: Unlabored breathing , decreased breath sounds at bases HEART: S1 S2 regular rate and rhythm , ABDOMEN: Soft , no tenderness EXTREMITIES: No edema feet - Labs CBC & Chem 7: 03/22/23 06:42 03/25/23 06:54 Labs: Abnormal Lab Results - Last 24 Hours (Table) 03/24/23 03/24/23 03/25/23 Range/Units 12:00 17:00 05:53 Sodium 129 L (137-145) mmol/L Potassium 5.5 H (3.5-5.1) mmol/L BUN 46 H (9-20) mg/dL Creatinine 4.21 H (0.66-1.25) mg/dL Glucose 117 H (74-99) mg/dL POC Glucose (mg/dL) 148 H 130 H (70-110) mg/dL Calcium 7.5 L (8.4-10.2) mg/dL 03/25/23 Range/Units 06:54 Sodium 130 L (137-145) mmol/L Potassium 5.2 H (3.5-5.1) mmol/L BUN 34 H (9-20) mg/dL Creatinine 3.32 H (0.66-1.25) mg/dL Glucose 126 H (74-99) mg/dL POC Glucose (mg/dL) (70-110) mg/dL Calcium 7.4 L (8.4-10.2) mg/dL Microbiology - Last 24 Hours (Table) 03/21/23 07:35 Blood Culture - Preliminary Blood Assessment and Plan (1) Bacteremia Current Visit: Yes Status: Acute Code(s): R78.81 - BACTEREMIA SNOMED Code(s): 9695153 (2) UTI (urinary tract infection) Current Visit: Yes Status: Acute Code(s): N39.0 - URINARY TRACT INFECTION, SITE NOT SPECIFIED SNOMED Code(s): 58142937 Plan: 1patient with Enterococcus faecalis bacteremia source possible urinary however underlying permacatheter infection not entirely excluded, Patient did have evidence of persistent bacteremia that is highly suspicious for line related infection 2-patient dialysis catheter was discontinued on 03/20/2023,Catheter tip has been negative so far blood culture repeat on 03/20/2023 as well as 03/21/2023, so far pending echocardiogram did not show any vegetation however it was a poor study 3-patient seemed to have cleared his bacteremia as a blood culture drawn on 03/20/2023 remains to be negative patient did got dialysis catheter on 03/24/2023 4-plan is for a two-week course of IV vancomycin pharmacy to dose through the dialysis Dictation was produced using [employer] software. please excuse any grammatical, word or spelling errors. Time with Patient: Less than 30
[2023-03-25] MEDS: ATORVASTATIN 40 MG TAB PO SCH (14:57)
[2023-03-25] MEDS: CHOLECALCIFEROL 125 MCG (5000 IU) TABLET PO SCH (14:57)
[2023-03-25] MEDS: TAMSULOSIN 0.4 MG CAP.ER.24H PO SCH (14:57)
[2023-03-25] MEDS: THIAMINE 100 MG TAB PO SCH (14:57)
[2023-03-25] MEDS: MAGNESIUM OXIDE 400 MG TAB PO SCH ×2 (14:57→21:07)
[2023-03-25] MEDS: ASPIRIN 81 MG PO SCH (14:57)
--- NOTE | 2023-03-25 15:16 | P.PN ---
Subjective Progress Note Date: 03/25/23 67-year-old male who was recently discharged from the hospital about 2 days ago after hospitalization for acute kidney injury volume overload and acute diastolic CHF and acute hypoxic respiratory failure. Patient was significantly volume overloaded and was started on hemodialysis. Urine output had improved however patient remains significantly volume overloaded and therefore hemodialysis was continued as outpatient. Patient did make it to his first outpatient treatment and stated that he felt quite weak when he went home and he has not been able to perform activities of daily living or to get out of bed. No complaints of new fever nausea vomiting abdominal pain or diarrhea. Shortness of breath not worse Patient continues to have significant swelling in the upper and lower extremities Patient has an indwelling Barkley catheter for urine retention. 03/15/2023 Patient is seen and evaluated sitting up in bedside chair Patient is admitted with acute kidney injury, hemodialysis dependent. Currently sitting up in chair. Urine output about 400 mL in 24 hours. Barkley catheter removed. No evidence of retention. -- On antibiotics for group D enterococcus bacteremia. in form of IV Cefepime and Vancomycin; ID on board; final culture and sensitivity is pending. 03/16/2023 Patient is seen and evaluated and follow-up currently receiving hemodialysis with nephrology and infectious disease following. Patient maintained on IV antibiotics awaiting repeat cultures and cultures from the right chest wall permacath with concerns of dialysis port infection. Patient is being treated for an acute urinary tract infection, present on admission most likely secondary to indwelling Barkley catheter. Barkley catheter has been removed and patient is voiding with no difficulties. Patient will likely receive ultrafiltration dialysis in the a.m. as well. Awaiting PT/OT therapy evaluation and patient will likely be going to [facility] once stabilized discharge. Patient is afebrile with no reported chest pain or worsening shortness of breath. Patient continues on 4 L which he was sent home with previous admission secondary to managing his CHF. Patient denies nausea or vomiting and is tolerating diet. Patient reports the hospital food is not very appetizing. Will continue Accu- Cheks before meals and at bedtime 03/17/2023 Patient seen and evaluated in follow-up this morning continuing on dialysis with nephrology following closely. Hemoglobin was 6.9 today and will give 1 unit of PRBC follow-up with repeat labs in a.m. Patient remains on antibiotics with in fectious disease following as well his blood cultures remained positive for enterococcus. Repeat blood cultures have been ordered again from the [facility] and awaiting finalized cultures. Patient denies chest pain or worsening shortness of breath. Patient continues on 5 L via nasal cannula. No reported nausea or vomiting patient is tolerating diet. Blood sugars are well-controlled at this time. Recommend PT/OT therapy daily as patient will be going to ECF once stabilized and discharged. 03/18/2023 Patient is seen in follow-up this morning just received dialysis and fatigued although arousable. is at bedside. Hemoglobin has improved to 8.8 after a unit of PRBC yesterday. Patient will likely receive dialysis again tomorrow and will follow-up with repeat labs. Cultures remain positive in multiple cultures have been received and pending from the [facility] for [facility] site. Infectious disease following. Overall poor prognosis. Patient remains full code. Patient is afebrile denies chest pain or worsening shortness of breath. Patient continues on 5 L via nasal cannula. Blood sugars have been becoming more elevated will add sliding scale. 03/19/2023 Patient is seen in follow-up being followed by nephrology along with infectious disease and vascular surgery consulted and will be having dialysis catheter removed as there is concern for continued contamination with positive blood cultures. Blood cultures remain positive and some samples have been ordered specifically from [facility] for [facility] although unsure if collected this way. Infectious disease along with nephrology both in agreement that dialysis catheter needs to be removed and patient will have dialysis today and then removed. Awaiting a.m. labs. Patient is continued on vancomycin and will continue for now. Patient is afebrile no reported worsening shortness of breath and denies chest pains. Patient tolerating diet and blood sugars will be continued to be monitored with Accu-Cheks before meals and at bedtime and sliding scale as needed. 03/20/2023 Patient is seen in follow-up this morning is awake and alert sitting up in the chair. Patient and report he was able to walk a few steps to the end of the couch with walker. Patient continues with significant weakness and will be going to rehab once cleared by consultations and would recommend PT/OT therapy daily. Patient did have right chest wall dialysis catheter removed today by vascular surgery and tip was sent for culture. Patient continues to be on vancomycin with infectious disease following and awaiting repeat cultures to finalized. Previous cultures have been still positive for enterococcus. Patient is afebrile and white count is 14 and hemoglobin is currently stable. Patient has no Barkley catheter and has been voiding. Patient denies any pain or burning with urinary frequency. Patient received dialysis yesterday and will not receive dialysis again until Thursday and nephrology is following closely. Follow-up labs ordered for a.m. 03/21/2023 Patient is evaluated today sitting up in the chair. He is being treated for enterococcus bacteremia and remains on IV antibiotics in the form of vancomycin. His most recent blood culture remains positive for enterococcus. He had his right IJ dialysis catheter removed with tip sent for culture. He additionally has a wound to his left mcdermott. Infectious disease is following closely as well as nephrology he is maintained on hemodialysis Thursday. Patient's main complaint is chronic pain for which we will recommend to increase his Hermiston to Herm[place] 7.5 and recommend to discontinue the morphine due to his renal dysfunction. Labs today showing White Count 12.7, Hemoglobin 8.2, Sodium 1:30, Creatinine 3.78. 03/22/2023 Patient is evaluated today sitting up in the chair. He doesn't report much improvement in his pain although Hermiston has been increased up to Hermiston 7.5. Recommending to remain off of morphine at this time. Patient is a hemodialysis patient Thursday as scheduled next receive hemodialysis tomorrow or Thursday. 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 Preliminary culture from the permacath that was removed is negative so far. White count 12.0, hemoglobin 8.0, sodium 131, creatinine 4.23. 03/23/2023 Patient remains in the medical floor. Permacath was removed with tip culture pending pulmonary so far negative as well as repeat blood cultures are negative so far. Patient has had persistent enterococcus bacteremia and also had urine culture showing enterococcus. He remains on antibiotics in the form of IV Vancomycin. He is usually on a hemodialysis schedule Thursday however patient does not have a hemodialysis catheter in place and also has no AV fistula and plan is to tentatively receive a new dialysis catheter tomorrow Thursday at the earliest. Reports pain management has improved with the Herm[place] 7.5. He remains on 5 L of oxygen with a saturation of 99%. Hemodynamically he is stable. 03/24/2023 Patient is seen this morning in follow-up and discussed with micro-lab about clearance of bacteremia and most recent blood cultures and catheter tip from regional [facility] for respiratory [facility] complex care have been negative for 72 hours. Infectious disease following and has cleared the patient for dialysis catheter placement today. Dr. Cano following and will be replacing and patient needs dialysis. Nephrology following and patient will have dialysis once the catheter is placed. Patient reporting increased shortness of breath most likely due to requiring dialysis as patient has not had since . Patient continues on IV antibiotics in the form of vancomycin with infectious disease following and will continue. Patient also to continue with local wound care and offloading to the sacral area and elevating lower extremities at rest. Patient continues on 6 L via nasal cannula and has been wearing 5 L chronically since last admission. Patient to work with physical therapy and is agreeable to rehab. Will discuss further with consultations about discharge planning once patient receives dialysis catheter. Patient is currently afebrile with no reported chest pain or palpitations. Maya ent is tolerating diet with no reported nausea or vomiting. 03/25/2023 Patient is seen in follow-up today status post receiving a dialysis catheter with vascular surgery and received dialysis late last night and again today. Plan is for removal of 2-3 L. Patient's blood pressure is extremely low and is being maintained on midodrine during dialysis. Patient is weak and tired today and awaiting a.m. labs. Potassium elevated and awaiting follow-up after dialysis. Patient continues with IV antibiotics in the form of vancomycin with infectious disease following. Patient will receive vancomycin with dialysis for the next 2 weeks and is planning on going to ECF. Patient has been accepted at [facility] and requiring insurance authorization. Case management is following and has submitted for authorization. Patient is afebrile denies chest pain. Continues to report shortness of breath and maintained on 5-6 L via nasal cannula. Review of systems: Constitutional: No reports of fatigue, no fever, or chills Cardiovascular: No reports of chest pain or palpitations Respiratory: reports of continued shortness of breath GI: No reports of nausea, vomiting, or diarrhea : No reports of dysuria or retention Neurovascular: reports of generalized weakness All medications have been reviewed Physical exam: Gen: This is a 67-year-old male who is asleep although arousable , alert and or iented 3, well-developed, obese, ill-appearing, appears older than stated age HEENT: Head is atraumatic, normocephalic. Pupils equal, round. Sclerae is anicteric. NECK: Supple. No JVD. No lymphadenopathy. No thyromegaly. LUNGS: Diminished breath sounds bilaterally with some scattered rhonchi. No intercostal retractions. HEART: S1, S2 are muffled ABDOMEN: Soft. Obese. Bowel sounds are present. No masses. No tenderness. EXTREMITIES: pedal edema. No calf tenderness. Significant bilateral upper and lower extremity edema. Left lower extremity mcdermott with bullous pemphigus lesion noted NEUROLOGICAL: Patient is awake, alert and oriented x3. Cranial nerves 2 through 12 are grossly intact. Diffusely weak Assessment: Acute renal failure, nonoliguric, acute tubular necrosis secondary to cardiorenal syndrome and hypotension, recently started on dialysis on 02/25/2023 last admission Acute on chronic diastolic congestive heart failure, acute exacerbation Acute on chronic hypoxic respiratory failure, secondary to CHF exacerbation Acute urinary tract infection, present on admission, secondary to indwelling Barkley catheter growing enterococcus Features of sepsis, present on admission secondary to urinary tract infection with bacteremia Anemia, iron deficiency Pressure ulcers, stage II, bilateral buttocks, present on admission History of diabetes mellitus, type II, [id number] Group D enterococcus bacteremia possibly secondary to urinary tract infection also with concerns of possible dialysis catheter infection and cultures from dialysis catheter tip are negative 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 History of bullous pemphigus, has chronic left lower extremity wound GI prophylaxis DVT prophylaxis Full code Plan: -Patient continues on IV vancomycin for the enterococcus bacteremia repeat blood cultures have been negative for the last 72 hours and permacath culture tip was negative as well. Patient has been cleared by infectious disease to receive permacath placement as patient needs dialysis. Patient underwent dialysis catheter placement yesterday with Dr. Cano and received late-night dialysis a nd is receiving dialysis again today. -Case management following and will be submitted for insurance authorization as patient has been accepted at [facility]. Patient will continue on vancomycin with dialysis for 2 weeks on discharge -Okay to resume Xarelto once cleared by vascular surgery -continue renal diet with fluid restrictions. Will follow up on repeat potassium level after dialysis -Patient has been voiding without a Barkley and will continue to monitor intake and output closely -Continue Accu-Cheks before meals and at bedtime and will continue sliding scale -Continue with PT/OT therapy daily. -Overall prognosis is poor and guarded -We will submit for insurance authorization for ECF as patient has been accepted at [facility] on the [address]. Possible discharge planning in the next 24-48 hours The impression and plan of care has been dictated by Sandra Ayala, Nurse Practitioner as directed. Dr. Nola MD I have performed a history and examination and MDM of this patient, discussed the same with the dictator, and agree with the dictator's assessment and plan as written ,documented as a scribe. Based on total visit time, I have performed more than 50% of the visit. Objective - Vital Signs Vital signs: Vital Signs Temp 98.1 F 03/25/23 07:47 Pulse 83 03/25/23 07:47 Resp 20 03/25/23 07:47 BP 129/71 03/25/23 07:47 Pulse Ox 99 03/25/23 07:47 FiO2 Intake & Output 03/24/23 03/25/23 03/25/23 18:59 06:59 18:59 Intake Total 500 Output Total 350 2800 Balance -350 -2300 Intake: Hemodialysis 500 Output: Urine 350 300 Hemodialysis 2500 Other: Voiding Method Urinal Urinal # Bowel Movements 1 - Labs CBC & Chem 7: 03/22/23 06:42 03/25/23 06:54 Labs: Abnormal Lab Results - Last 24 Hours (Table) 03/24/23 03/24/23 03/25/23 Range/Units 12:00 17:00 05:53 Sodium 129 L (137-145) mmol/L Potassium 5.5 H (3.5-5.1) mmol/L BUN 46 H (9-20) mg/dL Creatinine 4.21 H (0.66-1.25) mg/dL Glucose 117 H (74-99) mg/dL POC Glucose (mg/dL) 148 H 130 H (70-110) mg/dL Calcium 7.5 L (8.4-10.2) mg/dL 03/25/23 Range/Units 06:54 Sodium 130 L (137-145) mmol/L Potassium 5.2 H (3.5-5.1) mmol/L BUN 34 H (9-20) mg/dL Creatinine 3.32 H (0.66-1.25) mg/dL Glucose 126 H (74-99) mg/dL POC Glucose (mg/dL) (70-110) mg/dL Calcium 7.4 L (8.4-10.2) mg/dL Microbiology - Last 24 Hours (Table) 03/21/23 07:35 Blood Culture - Preliminary Blood
--- NOTE | 2023-03-25 15:31 | OP ---
OPERATIVE REPORT DATE OF SERVICE : PREOPERATIVE DIAGNOSIS: Acute chronic renal failure. PROCEDURE PERFORMED: Ultrasound-guided 23 cm dialysis catheter placed with right jugular approach. PROCEDURE IN DETAIL: The patient was seen in the room and brought to the chemical laboratory scientist. Right side of the neck and chest were prepped and draped in a sterile manner. 1% lidocaine was infiltrated into the neck and chest area. Ultrasound-guided micropuncture introduced into right jugular vein. Micropuncture guidewire was passed and a 4[place] dilator on top of the guidewire. Then we passed a regular guidewire. This was parked in the inferior vena cava. After that, a tunnel was created. Through the tunnel we brought 23 cm dialysis catheter. The dilator was advanced and the sheath was advanced on top of the guidewire. Through the sheath, we introduced the dialysis catheter. Tip of the catheter in superior vena cava atrial junction, sheath removed. The incision was closed with Vicryl and nylon and flushed with heparin saline Hep-Lock. The patient tolerated the procedure well. Plan is for x-ray of the chest. The patient can go on dialysis after the chest x-ray. MMODL / IJN: [id number] /
[2023-03-25] MEDS: TORSEMIDE 20 MG TAB PO SCH (16:00)
[2023-03-25] MEDS: RIVAROXABAN 20 MG TAB PO SCH (16:00)
[2023-03-25] MEDS: atenoloL 25 MG TAB PO SCH (16:31)
[2023-03-25 16:52] LABS: Glucose,Whole Blood 192 mg/dL (70-110)
[2023-03-25 20:05] LABS: Glucose,Whole Blood 156 mg/dL (70-110)
[2023-03-26] MEDS: HYDROcodone/APAP 7.5-325MG 1 EACH TAB PO PRN ×5 (02:50→21:34)
[2023-03-26 06:24] LABS: Glucose,Whole Blood 128 mg/dL (70-110)
[2023-03-26] MEDS: INSULIN ASPART (NovoLOG) 100 UNIT/ML VIAL SQ SCH ×4 (06:32→20:39)
[2023-03-26] MEDS: MIDODRINE 5 MG TAB PO SCH ×3 (06:40→16:52)
[2023-03-26] MEDS: ATORVASTATIN 40 MG TAB PO SCH (08:44)
[2023-03-26] MEDS: CHOLECALCIFEROL 125 MCG (5000 IU) TABLET PO SCH (08:44)
[2023-03-26] MEDS: MAGNESIUM OXIDE 400 MG TAB PO SCH ×2 (08:44→21:34)
[2023-03-26] MEDS: TORSEMIDE 20 MG TAB PO SCH (08:44)
[2023-03-26] MEDS: ASPIRIN 81 MG PO SCH (08:44)
[2023-03-26] MEDS: RIVAROXABAN 20 MG TAB PO SCH (08:44)
[2023-03-26] MEDS: atenoloL 25 MG TAB PO SCH (08:44)
[2023-03-26] MEDS: THIAMINE 100 MG TAB PO SCH (08:44)
[2023-03-26] MEDS: TAMSULOSIN 0.4 MG CAP.ER.24H PO SCH (08:44)
[2023-03-26] MEDS ORDERED: FUROSEMIDE 10 MG/ML 10 ML VIAL IV STA (10:00)
--- NOTE | 2023-03-26 11:11 | P.PN ---
Subjective patient is seen for follow-up for acute kidney injury currently hemodialysis dependent. last hemodialysis on 03/19/2023 with UF of 2.7 L. Dialysis catheter discontinued due to bacteremia with Enterococcus faecalis. Repeat blood cultures have been negative from 03/20 and 03/21/2023 Status post new catheter placement on 03/24/2023. Patient states his short of breath today. According to nursing staff it appears that patient gets anxious. Status post hemodialysis yesterday with 2.5 L. Objective - Vital Signs Vital signs: Vital Signs Temp 97.8 F 03/26/23 08:00 Pulse 84 03/26/23 08:00 Resp 20 03/26/23 08:00 BP 129/87 03/26/23 08:00 Pulse Ox 98 03/26/23 08:00 FiO2 Intake & Output 03/25/23 03/26/23 03/26/23 18:59 06:59 18:59 Intake Total 400 Output Total 2725 200 Balance -2325 -200 Intake: Hemodialysis 400 Output: Urine 225 200 Hemodialysis 2500 Other: Voiding Method Urinal Urinal # Bowel Movements 1 - Exam patient is awake, comfortable, no acute distress Examination of the heart S1 and S2 Examination of the lungs bilateral breath sounds are heard Abdomen is soft nontender Examination of lower extremities shows edema 2+ bilaterally with chronic skin changes EVALUATOR exam grossly intact - Labs CBC & Chem 7: 03/22/23 06:42 03/25/23 06:54 Labs: Abnormal Lab Results - Last 24 Hours (Table) 03/25/23 03/25/23 03/25/23 Range/Units 11:53 16:51 20:03 POC Glucose (mg/dL) 129 H 192 H 156 H (70-110) mg/dL 03/26/23 Range/Units 06:22 POC Glucose (mg/dL) 128 H (70-110) mg/dL Assessment and Plan Assessment: 1. Acute kidney injury nonoliguric ATN secondary to hypotension, started hemodialysis on 02/25/2023. UA from last hospitalization showed 3+ protein and large blood. Patient remains hemodialysis dependent mostly due to severe volume overload. hemodialysis catheter discontinued due to bacteremia. Status post new catheter placement 03/24/2023 2. Volume overload maintained on torsemide and hemodialysis 3. Acute diastolic CHF from last admission currently stable 4. History of acute hypoxic respiratory failure from CHF and volume overload during his last admission few days ago 5. 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 Left kidney nodule to be monitored as outpatient. 7. Generalized weakness 8. Anemia of chronic disease 9. Enterococcus bacteremia status post removal of dialysis catheter. Repeat blood cultures from are negative thus far. New catheter placed on 03/24/2023 Plan: Hemodialysis today with only ultrafiltration. Patient will have a short treatment today and we will plan for a routine scheduled treatment again tomorrow.
[2023-03-26 11:27] LABS: Glucose,Whole Blood 141 mg/dL (70-110)
[2023-03-26 13:19] LABS: Basophils % (A) 1.1 %; Eosinophils # (A) 0.66 X 10*3/uL (0.04-0.35); Eosinophils % (A) 7.3 %; HCT 26.3 % (39.6-50.0); HGB 7.7 d/dL (13.0-17.0); Lymphocytes # (A) 1.54 X 10*3/uL (0.90-5.00); MCH 29.1 pg (27.0-32.0); MCHC 29.3 d/dL (32.0-37.0); MCV 99.2 FL (80.0-97.0); Monocytes # (A) 1.17 X 10*3/uL (0.20-1.00); Monocytes % (A) 12.9 %; NRBC Per 100 WBC 0 X 10*3/uL (0.00-0.01); Neutrophils # (A) 5.33 X 10*3/uL (1.80-7.70); Neutrophils % (A) 58.6 %; Platelet Count 422 X 10*3/uL (140-440); RBC 2.65 X 10*6/uL (4.40-5.60); RDW 15.4 % (11.5-14.5); WBC 9.08 X 10*3/uL (4.50-10.00)
--- NOTE | 2023-03-26 14:34 | P.PN ---
Subjective Progress Note Date: 03/26/23 Principal diagnosis: Catheter associated UTI and bacteremia Patient is a 67-year-old male with a past medical history significant for type 2 diabetes mellitus hypertension hyperlipidemia atrial fibrillation with recent diagnosis of renal failure for the patient did have a dialysis catheter placement, presented to hospital with weakness patient noticed to have elevated white count positive UA concerning for catheter since UTI. Patient blood culture subsequently came back positive with Enterococcus. Patient did have removal of the palmar catheter on 03/20/2023, patient did have a new permacath placement on 03/24/2023 On today's evaluation that is 03/26/2023 the patient remains to be afebrile, the patient is complaining of more shortness of breath today the patient is currently on 6L nasal cannula oxygen. The patient denies having any chest pain or worsening cough or sputum production, the patient denies nausea vomiting no abdominal pain no diarrhea has been reported Patient white count is has normalized 9.08, blood culture 03/20/2023 and 03/21/2023 negative Objective - Vital Signs Vital signs: Vital Signs Temp 97.8 F 03/26/23 08:00 Pulse 84 03/26/23 08:00 Resp 20 03/26/23 08:00 BP 129/87 03/26/23 08:00 Pulse Ox 98 03/26/23 08:00 FiO2 Intake & Output 03/25/23 03/26/23 03/26/23 18:59 06:59 18:59 Intake Total 400 Output Total 2725 200 Balance -2325 -200 Intake: Hemodialysis 400 Output: Urine 225 200 Hemodialysis 2500 Other: Voiding Method Urinal Urinal # Bowel Movements 1 - Exam GENERAL DESCRIPTION: An elderly male lying in bed in no distress RESPIRATORY SYSTEM: Unlabored breathing , decreased breath sounds at bases HEART: S1 S2 regular rate and rhythm , ABDOMEN: Soft , no tenderness EXTREMITIES: No edema feet - Labs CBC & Chem 7: 03/26/23 06:50 03/25/23 06:54 Labs: Abnormal Lab Results - Last 24 Hours (Table) 03/25/23 03/25/23 03/25/23 Range/Units 11:53 16:51 20:03 POC Glucose (mg/dL) 129 H 192 H 156 H (70-110) mg/dL 03/26/23 03/26/23 Range/Units 06:22 11:26 POC Glucose (mg/dL) 128 H 141 H (70-110) mg/dL Assessment and Plan (1) Bacteremia Current Visit: Yes Status: Acute Code(s): R78.81 - BACTEREMIA SNOMED Code (s): 0000352 (2) UTI (urinary tract infection) Current Visit: Yes Status: Acute Code(s): N39.0 - URINARY TRACT INFECTION, SITE NOT SPECIFIED SNOMED Code(s): 37005534 Plan: 1patient with Enterococcus faecalis bacteremia source possible urinary however underlying permacatheter infection not entirely excluded, Patient did have evidence of persistent bacteremia that is highly suspicious for line related infection 2-patient dialysis catheter was discontinued on 03/20/2023,Catheter tip has been negative so far blood culture repeat on 03/20/2023 as well as 03/21/2023, so far pending echocardiogram did not show any vegetation however it was a poor study 3-patient seemed to have cleared his bacteremia as a blood culture drawn on 02/25 remains to be negative patient did got dialysis catheter on 03/24/2023 4Patient however continued to complain of increasing shortness of breath and is still requiring significant supplemental oxygen patient benefit from HERIBERTO to make sure no evidence of any vegetation cardiology has been consulted continue with vancomycin Dictation was produced using [employer] dictation software. please excuse any grammatical, word or spelling errors. Time with Patient: Less than 30
[2023-03-26 16:59] LABS: Glucose,Whole Blood 162 mg/dL (70-110)
[2023-03-26 18:31] LABS: BUN/Creat Ratio 7.27 Ratio (12.00-20.00); Blood Urea Nitrogen 21.8 mg/dL (9.0-27.0); Calcium 7.7 mg/dL (8.7-10.3); Carbon Dioxide 27.5 mmol/L (21.6-31.8); Chloride 98 mmol/L (96-109); Glucose 128 mg/dL (70-110); Potassium 4.6 mmol/L (3.5-5.5); Sodium 135 mmol/L (135-145)
[2023-03-26 20:36] LABS: Glucose,Whole Blood 124 mg/dL (70-110)
--- NOTE | 2023-03-26 21:13 | P.PN ---
Subjective Progress Note Date: 03/26/23 67-year-old male who was recently discharged from the hospital about 2 days ago after hospitalization for acute kidney injury volume overload and acute diastolic CHF and acute hypoxic respiratory failure. Patient was significantly volume overloaded and was started on hemodialysis. Urine output had improved however patient remains significantly volume overloaded and therefore hemodialysis was continued as outpatient. Patient did make it to his first outpatient treatment and stated that he felt quite weak when he went home and he has not been able to perform activities of daily living or to get out of bed. No complaints of new fever nausea vomiting abdominal pain or diarrhea. Shortness of breath not worse Patient continues to have significant swelling in the upper and lower extremities Patient has an indwelling Barkley catheter for urine retention. 03/15/2023 Patient is seen and evaluated sitting up in bedside chair Patient is admitted with acute kidney injury, hemodialysis dependent. Currently sitting up in chair. Urine output about 400 mL in 24 hours. Barkley catheter removed. No evidence of retention. -- On antibiotics for group D enterococcus bacteremia. in form of IV Cefepime and Vancomycin; ID on board; final culture and sensitivity is pending. 03/16/2023 Patient is seen and evaluated and follow-up currently receiving hemodialysis with nephrology and infectious disease following. Patient maintained on IV antibiotics awaiting repeat cultures and cultures from the right chest wall permacath with concerns of dialysis port infection. Patient is being treated for an acute urinary tract infection, present on admission most likely secondary to indwelling Barkley catheter. Barkley catheter has been removed and patient is voiding with no difficulties. Patient will likely receive ultrafiltration dialysis in the a.m. as well. Awaiting PT/OT therapy evaluation and patient will likely be going to [facility] once stabilized discharge. Patient is afebrile with no reported chest pain or worsening shortness of breath. Patient continues on 4 L which he was sent home with previous admission secondary to managing his CHF. Patient denies nausea or vomiting and is tolerating diet. Patient reports the hospital food is not very appetizing. Will continue Accu- Cheks before meals and at bedtime 03/17/2023 Patient seen and evaluated in follow-up this morning continuing on dialysis with nephrology following closely. Hemoglobin was 6.9 today and will give 1 unit of PRBC follow-up with repeat labs in a.m. Patient remains on antibiotics with in fectious disease following as well his blood cultures remained positive for enterococcus. Repeat blood cultures have been ordered again from the [facility] and awaiting finalized cultures. Patient denies chest pain or worsening shortness of breath. Patient continues on 5 L via nasal cannula. No reported nausea or vomiting patient is tolerating diet. Blood sugars are well-controlled at this time. Recommend PT/OT therapy daily as patient will be going to ECF once stabilized and discharged. 03/18/2023 Patient is seen in follow-up this morning just received dialysis and fatigued although arousable. is at bedside. Hemoglobin has improved to 8.8 after a unit of PRBC yesterday. Patient will likely receive dialysis again tomorrow and will follow-up with repeat labs. Cultures remain positive in multiple cultures have been received and pending from the [facility] site. Infectious disease following. Overall poor prognosis. Patient remains full code. Patient is afebrile denies chest pain or worsening shortness of breath. Patient continues on 5 L via nasal cannula. Blood sugars have been becoming more elevated will add sliding scale. 03/19/2023 Patient is seen in follow-up being followed by nephrology along with infectious disease and vascular surgery consulted and will be having dialysis catheter removed as there is concern for continued contamination with positive blood cultures. Blood cultures remain positive and some samples have been ordered specifically from [facility] although unsure if collected this way. Infectious disease along with nephrology both in agreement that dialysis catheter needs to be removed and patient will have dialysis today and then removed. Awaiting a.m. labs. Patient is continued on vancomycin and will continue for now. Patient is afebrile no reported worsening shortness of breath and denies chest pains. Patient tolerating diet and blood sugars will be continued to be monitored with Accu-Cheks before meals and at bedtime and sliding scale as needed. 03/20/2023 Patient is seen in follow-up this morning is awake and alert sitting up in the chair. Patient and report he was able to walk a few steps to the end of the couch with walker. Patient continues with significant weakness and will be going to rehab once cleared by consultations and would recommend PT/OT therapy daily. Patient did have right chest wall dialysis catheter removed today by vascular surgery and tip was sent for culture. Patient continues to be on vancomycin with infectious disease following and awaiting repeat cultures to finalized. Previous cultures have been still positive for enterococcus. Patient is afebrile and white count is 14 and hemoglobin is currently stable. Patient has no Barkley catheter and has been voiding. Patient denies any pain or burning with urinary frequency. Patient received dialysis yesterday and will not receive dialysis again until Thursday and nephrology is following closely. Follow-up labs ordered for a.m. 03/21/2023 Patient is evaluated today sitting up in the chair. He is being treated for enterococcus bacteremia and remains on IV antibiotics in the form of vancomycin. His most recent blood culture remains positive for enterococcus. He had his right IJ dialysis catheter removed with tip sent for culture. He additionally has a wound to his left mcdermott. Infectious disease is following closely as well as nephrology he is maintained on hemodialysis Thursday. Patient's main complaint is chronic pain for which we will recommend to increase his Peterson to Peterson 7.5 and recommend to discontinue the morphine due to his renal dysfunction. Labs today showing White Count 12.7, Hemoglobin 8.2, Sodium 1:30, Creatinine 3.78. 03/22/2023 Patient is evaluated today sitting up in the chair. He doesn't report much improvement in his pain although Peterson has been increased up to Peterson 7.5. Recommending to remain off of morphine at this time. Patient is a hemodialysis patient Thursday as scheduled next receive hemodialysis tomorrow or Thursday. 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 Preliminary culture from the permacath that was removed is negative so far. White count 12.0, hemoglobin 8.0, sodium 131, creatinine 4.23. 03/23/2023 Patient remains in the medical floor. Permacath was removed with tip culture pending pulmonary so far negative as well as repeat blood cultures are negative so far. Patient has had persistent enterococcus bacteremia and also had urine culture showing enterococcus. He remains on antibiotics in the form of IV Vancomycin. He is usually on a hemodialysis schedule Thursday however patient does not have a hemodialysis catheter in place and also has no AV fistula and plan is to tentatively receive a new dialysis catheter tomorrow Thursday at the earliest. Reports pain management has improved with the Peterson 7.5. He remains on 5 L of oxygen with a saturation of 99%. Hemodynamically he is stable. 03/24/2023 Patient is seen this morning in follow-up and discussed with micro-lab about clearance of bacteremia and most recent blood cultures and catheter tip from [facility] have been negative for 72 hours. Infectious disease following and has cleared the patient for dialysis catheter placement today. Dr. Cano following and will be replacing and patient needs dialysis. Nephrology following and patient will have dialysis once the catheter is placed. Patient reporting increased shortness of breath most likely due to requiring dialysis as patient has not had since . Patient continues on IV antibiotics in the form of vancomycin with infectious disease following and will continue. Patient also to continue with local wound care and offloading to the sacral area and elevating lower extremities at rest. Patient continues on 6 L via nasal cannula and has been wearing 5 L chronically since last admission. Patient to work with physical therapy and is agreeable to rehab. Will discuss further with consultations about discharge planning once patient receives dialysis catheter. Patient is currently afebrile with no reported chest pain or palpitations. Maya ent is tolerating diet with no reported nausea or vomiting. 03/25/2023 Patient is seen in follow-up today status post receiving a dialysis catheter with vascular surgery and received dialysis late last night and again today. Plan is for removal of 2-3 L. Patient's blood pressure is extremely low and is being maintained on midodrine during dialysis. Patient is weak and tired today and awaiting a.m. labs. Potassium elevated and awaiting follow-up after dialysis. Patient continues with IV antibiotics in the form of vancomycin with infectious disease following. Patient will receive vancomycin with dialysis for the next 2 weeks and is planning on going to ECF. Patient has been accepted at [facility] and requiring insurance authorization. Case management is following and has submitted for authorization. Patient is afebrile denies chest pain. Continues to report shortness of breath and maintained on 5-6 L via nasal cannula. 03/26/2023 Patient is seen and evaluated in follow-up this morning lethargic although arousable. Patient did receive another dialysis catheter and received dialysis with possible further ultrafiltration today if not tomorrow morning. Patient continues to report shortness of breath and maintained on 5 L and maintaining oxygen saturations above 95% recommend a wean FiO2 as tolerated. Per nursing staff patient has been requesting to increase oxygen supply up to 6 L although is 98%. Patient likely needs repeat dialysis. Patient continues with signific ant overload and is being given a dose of Lasix again today per nephrology. Patient to continue with vancomycin with dialysis for 2 week course on discharge as repeat cultures have been negative and catheter tip culture was negative as well. This was discussed with infectious disease. Cardiology being consulted to discuss possible HERIBERTO to ensure no endocarditis. Will await cardiology input and recommendations. Patient is afebrile with no reported chest pain or palpitations. Patient tolerating diet with no reported nausea or vomiting. Patient continues to be significantly weak and has been somewhat agreeable to work with physical therapy on nondialysis days. Patient reports he is signi ficantly more weak on the days he receives dialysis. Review of systems: Constitutional: reports of fatigue, no fever, or chills Cardiovascular: No reports of chest pain or palpitations Respiratory: reports of continued shortness of breath GI: No reports of nausea, vomiting, or diarrhea : No reports of dysuria or retention Neurovascular: reports of generalized weakness All medications have been reviewed Physical exam: Gen: This is a 67-year-old male who is asleep although arousable , alert and oriented 3, well-developed, obese, ill-appearing, appears older than stated age HEENT: Head is atraumatic, normocephalic. Pupils equal, round. Sclerae is anicteric. NECK: Supple. No JVD. No lymphadenopathy. No thyromegaly. LUNGS: Diminished breath sounds bilaterally with some scattered rhonchi. No intercostal retractions. HEART: S1, S2 are muffled ABDOMEN: Soft. Obese. Bowel sounds are present. No masses. No tenderness. EXTREMITIES: pedal edema. No calf tenderness. Significant bilateral upper and lower extremity edema. Left lower extremity mcdermott with bullous pemphigus lesion noted NEUROLOGICAL: Patient is awake, alert and oriented x3. Cranial nerves 2 through 12 are grossly intact. Diffusely weak Assessment: Acute renal failure, nonoliguric, acute tubular necrosis secondary to cardiorenal syndrome and hypotension, recently started on dialysis on 02/25/2023 last admission Acute on chronic diastolic congestive heart failure, acute exacerbation Acute on chronic hypoxic respiratory failure, secondary to CHF exacerbation Acute urinary tract infection, present on admission, secondary to indwelling Barkley catheter growing enterococcus Features of sepsis, present on admission secondary to urinary tract infection with bacteremia Anemia, iron deficiency Pressure ulcers, stage II, bilateral buttocks, present on admission History of diabetes mellitus, type II, [id number] Group D enterococcus bacteremia possibly secondary to urinary tract infection also with concerns of possible dialysis catheter infection and cultures from dialysis catheter tip are negative 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 History of bullous pemphigus, has chronic left lower extremity wound GI prophylaxis DVT prophylaxis Full code Plan: -Patient continues on IV vancomycin for the enterococcus bacteremia repeat blood cultures have been negative for the last 72 hours and permacath culture tip was negative as well. Patient has been cleared by infectious disease and has received another dialysis catheter placed with Dr. Cano and received late- night dialysis as well as dialysis yesterday. Discussing possible dialysis with ultrafiltration today if staffing available if not will have another treatment in the a.m. -Case management following and will be submitted for insurance authorization as patient has been accepted at [facility]. Patient will continue on vancomycin with dialysis for 2 weeks on discharge -Infectious disease recommending cardiology consultation for possible HERIBERTO to ensure no endocarditis -Okay to resume Xarelto once cleared by vascular surgery -continue renal diet with fluid restrictions. -Patient has been voiding without a Barkley and will continue to monitor intake and output closely -Continue Accu-Cheks before meals and at bedtime and will continue sliding scale -Continue with PT/OT therapy daily. -Overall prognosis is poor and guarded -We will submit for insurance authorization for ECF as patient has been accepted at [facility] on the [address]. -Will await cardiology evaluation to discuss possible HERIBERTO The impression and plan of care has been dictated by Sandra Ayala, Nurse Practitioner as directed. Dr. Nola MD I have performed a history and examination and MDM of this patient, discussed the same with the dictator, and agree with the dictator's assessment and plan as written ,documented as a scribe. Based on total visit time, I have performed more than 50% of the visit. Objective - Vital Signs Vital signs: Vital Signs Temp 97.8 F 03/26/23 08:00 Pulse 84 03/26/23 08:00 Resp 20 03/26/23 08:00 BP 129/87 03/26/23 08:00 Pulse Ox 98 03/26/23 08:00 FiO2 Intake & Output 03/25/23 03/26/23 03/26/23 18:59 06:59 18:59 Intake Total 400 Output Total 2725 200 Balance -2325 -200 Intake: Hemodialysis 400 Output: Urine 225 200 Hemodialysis 2500 Other: Voiding Method Urinal Urinal # Bowel Movements 1 - Labs CBC & Chem 7: 03/26/23 06:50 03/26/23 06:50 Labs: Abnormal Lab Results - Last 24 Hours (Table) 03/25/23 03/25/23 03/25/23 Range/Units 11:53 16:51 20:03 POC Glucose (mg/dL) 129 H 192 H 156 H (70-110) mg/dL 03/26/23 Range/Units 06:22 POC Glucose (mg/dL) 128 H (70-110) mg/dL
[2023-03-27] MEDS: HYDROcodone/APAP 7.5-325MG 1 EACH TAB PO PRN ×6 (01:54→22:56)
[2023-03-27 06:04] LABS: Glucose,Whole Blood 130 mg/dL (70-110)
[2023-03-27] MEDS: INSULIN ASPART (NovoLOG) 100 UNIT/ML VIAL SQ SCH ×4 (06:58→20:55)
[2023-03-27] MEDS: MIDODRINE 5 MG TAB PO SCH ×4 (07:08→17:19)
[2023-03-27] MEDS: atenoloL 25 MG TAB PO SCH (08:08)
[2023-03-27 08:21] LABS: African American GFR (CKD) 21 (>60 ml/min/1.73 sqM); Anion Gap 5 mmol/L; Blood Urea Nitrogen 33 mg/dL (9-20); Calcium 7.4 mg/dL (8.4-10.2); Carbon Dioxide 27 mmol/L (22-30); Chloride 100 mmol/L (98-107); Glucose 115 mg/dL (74-99); Non-African American GFR(CKD) 18 (>60 ml/min/1.73 sqM); Potassium 4.8 mmol/L (3.5-5.1); Sodium 132 mmol/L (137-145)
[2023-03-27 08:27] LABS: Vancomycin,Random 24.2 ug/mL
[2023-03-27] MEDS: ATORVASTATIN 40 MG TAB PO SCH (08:30)
[2023-03-27] MEDS: TAMSULOSIN 0.4 MG CAP.ER.24H PO SCH (08:30)
[2023-03-27] MEDS: TORSEMIDE 20 MG TAB PO SCH (08:30)
[2023-03-27] MEDS: CHOLECALCIFEROL 125 MCG (5000 IU) TABLET PO SCH (08:30)
[2023-03-27] MEDS: ERGOCALCIFEROL 1,250 MCG (50,000 IU) CAPSULE PO SCH (08:30)
[2023-03-27] MEDS: RIVAROXABAN 20 MG TAB PO SCH (08:30)
[2023-03-27] MEDS: MAGNESIUM OXIDE 400 MG TAB PO SCH ×2 (08:30→20:46)
[2023-03-27] MEDS: ASPIRIN 81 MG PO SCH (08:30)
[2023-03-27] MEDS: THIAMINE 100 MG TAB PO SCH (08:30)
--- NOTE | 2023-03-27 09:05 | P.CRDCN ---
History of Present Illness History of present illness: HISTORY OF PRESENT ILLNESS: This is a 67-year-old male with a past medical history significant for congestive heart failure, atrial fibrillation, diabetes, DVT, chronic kidney disease, and hyperlipidemia. Patient follows in the office with Dr. Quesada. We have been asked to see the patient in consultation for bacteremia and HERIBERTO. Patient examined at the bedside. He currently denies chest pain or pressure. He does report shortness of breath. He is receiving oral diuretics. He underwent hemodialysis yesterday. * EKG reveals atrial fibrillation with controlled ventricular rate * Chest xray no evidence for pneumothorax. Basilar infiltrates, atelectasis and/or pleural effusions right greater than left * Laboratory data: WBC 12.0. Hemoglobin 8.0. Platelet count 401. Sodium 130. Potassium 5.2. BUN 34. Creatinine 3.32. * Current home cardiac medications include atenolol 25 mg twice a day, Demadex 40 mg daily, Xarelto 20 mg daily, atorvastatin 40 mg daily, and aspirin 81 mg daily * Limited echocardiogram performed on 03/21/2023 revealed limited study with attention to valvular structure. Technically difficult study. Poorly visualized intracardiac valves. Aortic sclerosis. Trace aortic insufficiency. Mild mitral regurgitation. REVIEW OF SYSTEMS: At the time of my exam: CONSTITUTIONAL: Denies fever or chills. HEENT: Denies blurred vision, vision changes, or eye pain. Denies hemoptysis CARDIOVASCULAR: Denies chest pain. Denies orthopnea. Denies PND. Denies palpitations RESPIRATORY: Denies shortness of breath. GASTROINTESTINAL: Denies abdominal pain. Denies nausea or vomiting. HEMATOLOGIC: Denies bleeding disorders. GENITOURINARY: Denies any blood in urine. SKIN: Denies pruitis. Denies rash. PHYSICAL EXAM: VITAL SIGNS: Reviewed. GENERAL: Well-developed in no acute distress. HEENT: Head is normocephalic. Pupils are equal, round. Sclerae anicteric. Mucous membranes of the mouth are moist. Neck supple. No JVD or thyromegaly LUNGS: Respirations even and unlabored. Lungs essentially clear to auscultation bilaterally. HEART: Irregular rate and rhythm. S1 and S2 heard. ABDOMEN: Soft. Nondistended. Nontender. EXTREMITIES: Normal range of motion. No clubbing or cyanosis. Peripheral pulses intact. No lower extremity edema NEUROLOGIC: Awake and alert. Oriented x 3. ASSESSMENT: Bacteremia, blood cultures positive for Enterococcus faecalis Urinary tract infection Acute on chronic kidney disease; on hemodialysis Persistent atrial fibrillation Acute on chronic heart failure with preserved EF History of DVT Hyperlipidemia Diabetes PLAN: Continue current cardiac medications Patient to undergo HERIBERTO today with Dr. Hoskins Further recommendations pending patient course Nurse practitioner note has been reviewed by physician. Signing provider agrees with the documented findings, assessment, and plan of care. Past Medical History Past Medical History: Atrial Fibrillation, Heart Failure, Diabetes Mellitus, Deep Vein Thrombosis (DVT), Hypertension, Osteoarthritis (OA), Prostate Disorder Additional Past Medical History / Comment(s): back pain, MRI scheduled for 10/28/22 History of Any Multi-Drug Resistant Organisms: None Reported Past Surgical History: Orthopedic Surgery Additional Past Surgical History / Comment(s): bilateral total hip replacement. 2007 .05-12-16 TOTAL RIGHT HIP REPLACEMENT. RT KNEE SX. RT SHOULDER SX. COLONOSCOPY Past Anesthesia/Blood Transfusion Reactions: No Reported Reaction Past Psychological History: No Psychological Hx Reported Smoking Status: Former smoker Past Alcohol Use History: None Reported Past Drug Use History: None Reported - Past Family History Mother Family Medical History: Diabetes Mellitus Father Additional Family Medical History / Comment(s): FROM [facility] Medications and Allergies Home Medications Medication Instructions Recorded Confirmed Type atenoloL [Tenormin] 25 mg PO BID 05/08/16 03/12/23 History Alpha Lipoic Acid 1,200 mg PO BID 10/20/22 03/12/23 History Aspirin EC [Ecotrin Low Dose] 81 mg PO DAILY 10/20/22 03/12/23 History Atorvastatin [Lipitor] 40 mg PO DAILY 10/20/22 03/12/23 History Cholecalciferol [Vitamin D3 (125 125 mcg PO DAILY 10/20/22 03/12/23 History Mcg = 5000 Iu)] Magnesium 250 mg PO BID 10/20/22 03/12/23 History Tamsulosin [Flomax] 0.4 mg PO DAILY 10/20/22 03/12/23 History Rivaroxaban [Xarelto] 20 mg PO DAILY 30 Days #30 tab 10/22/22 03/12/23 Rx Vitamin B Complex 1 cap PO DAILY 02/24/23 03/12/23 History Darbepoetin Naun [Aranesp] 40 mcg SQ Q7D each 03/11/23 03/12/23 Rx Ergocalciferol [Vitamin D2 (1250 1,250 mcg PO Q7D #4 cap 03/11/23 03/12/23 Rx Mcg = 85052 Iu)] Midodrine [ProAmatine] 10 mg PO AC-TID 30 Days #180 tab 03/11/23 03/12/23 Rx Nystatin 100,000 Unit/gm Powd 1 applic TOPICAL BID PRN 30 Days 03/11/23 03/12/23 Rx [Mycostatin Powder] #1 each Thiamine [Vitamin B-1] 100 mg PO DAILY #30 tab 03/11/23 03/12/23 Rx Torsemide [Demadex] 40 mg PO DAILY 30 Days #60 tab 03/11/23 03/12/23 Rx HYDROcodone/APAP 5-325MG [Silas 1 tab PO Q6HR PRN 03/12/23 03/12/23 History 5-325] Allergies Allergy/AdvReac Type Severity Reaction Status Date / Time Penicillins Allergy Rash/Hives Verified 03/12/23 20:01 ibuprofen AdvReac BURING Verified 03/12/23 20:01 SENSATION IN ARMS Physical Exam Vitals: Vital Signs Temp Pulse Resp BP Pulse Ox 03/26/23 08:00 97.8 F 84 20 129/87 98 03/26/23 01:58 97.7 F 72 20 110/66 95 03/25/23 19:12 97.9 F 80 18 100/63 95 03/25/23 14:06 98.2 F 65 18 124/80 03/25/23 13:53 98.2 F 65 18 124/80 97 Intake and Output 03/25/23 03/26/23 03/26/23 22:59 06:59 14:59 Output Total 225 200 Balance -225 -200 Output: Urine 225 200 Other: Voiding Method Urinal Urinal # Bowel Movements 1 Results 03/26/23 06:50 03/27/23 06:31 Current Medications Generic Name Dose Route Start Last Admin Trade Name Freq PRN Reason Stop Dose Admin Acetaminophen 650 mg 03/21/23 15:15 Acetaminophen Tab 325 Mg Tab PO Q6HR PRN Fever and/ or Mild Pain Hydrocodone Bitart/Acetaminophen 1 each 03/24/23 20:24 03/26/23 08:43 Hydrocodone/Apap 7.5-325mg 1 Each Tab PO 1 each Q4HR PRN Administration Pain Aspirin 81 mg 03/13/23 10:15 03/26/23 08:44 Aspirin 81 Mg PO 81 mg DAILY FIDEL Administration Atenolol 25 mg 03/26/23 09:00 03/26/23 08:44 Atenolol 25 Mg Tab PO 25 mg DAILY FIDEL Administration Atorvastatin Calcium 40 mg 03/13/23 21:00 03/26/23 08:44 Atorvastatin 40 Mg Tab PO 40 mg DAILY FIDEL Administration Cholecalciferol 125 mcg 03/14/23 09:00 03/26/23 08:44 Cholecalciferol 125 Mcg (5000 Iu) Tablet PO 125 mcg DAILY FIDEL Administration Darbepoetin Naun 60 mcg 03/13/23 12:00 03/20/23 13:30 Darbepoetin Naun 60 Mcg/0.3 Ml Syringe SQ 60 mcg Q7D FIDEL Administration Dextrose/Water 25 ml 03/19/23 06:03 Dextrose 50% Syringe 50 Ml IVP PER PROTOCOL PRN Hypoglycemia Protocol Dextrose/Water 50 ml 03/19/23 06:03 Dextrose 50% Syringe 50 Ml IVP PER PROTOCOL PRN Hypoglycemia Protocol Ergocalciferol 1,250 mcg 03/13/23 11:00 03/20/23 10:33 Ergocalciferol 1,250 Mcg (50,000 Iu) Capsule PO 1,250 mcg Q7D FIDEL Administration Insulin Aspart 0 unit 03/19/23 07:30 03/26/23 12:20 Insulin Aspart (Novolog) 100 Unit/Ml Vial SQ Not Given ACHS FIDEL Protocol Magnesium Oxide 400 mg 03/13/23 21:00 03/26/23 08:44 Magnesium Oxide 400 Mg Tab PO 400 mg BID FIDEL Administration Melatonin 5 mg 03/23/23 10:37 Melatonin 5 Mg Tablet PO HS PRN Insomnia Midodrine 10 mg 03/13/23 12:30 03/26/23 12:28 Midodrine 5 Mg Tab PO Not Given AC-TID FIDEL Midodrine 10 mg 03/17/23 08:58 03/19/23 20:14 Midodrine 5 Mg Tab PO 10 mg AC-TID PRN Administration Blood Pressure - Low Miscellaneous Information 0 each 03/13/23 20:00 Vancomycin Iv Per Pharmacy 1 Each Misc MISCELLANE DIRECTED PRN + BCX Naloxone HCl 0.2 mg 03/12/23 21:26 Naloxone 0.4 Mg/Ml 1 Ml Vial IV Q2M PRN Opioid Reversal Nystatin 1 applic 03/13/23 09:57 Nystatin 100,000 Unit/Gm Powd 15 Gm TOPICAL BID PRN chafing Protocol Ondansetron HCl 4 mg 03/12/23 21:26 Ondansetron 4 Mg/2 Ml Vial IVP Q8HR PRN Nausea And Vomiting Rivaroxaban 20 mg 03/13/23 10:15 03/26/23 08:44 Rivaroxaban 20 Mg Tab PO 20 mg DAILY FIDEL Administration Protocol Sodium Chloride 2 spray 03/17/23 17:52 Sodium Chloride 0.65% Nasal Ryde 44 Ml Btl NASAL QID PRN Dry Nasal Passages Tamsulosin HCl 0.4 mg 03/13/23 10:15 03/26/23 08:44 Tamsulosin 0.4 Mg Cap.Er.24h PO 0.4 mg DAILY FIDEL Administration Thiamine HCl 100 mg 03/13/23 11:00 03/26/23 08:44 Thiamine 100 Mg Tab PO 100 mg DAILY FIDEL Administration Torsemide 40 mg 03/13/23 10:15 03/26/23 08:44 Torsemide 20 Mg Tab PO 40 mg DAILY FIDEL Administration Intake and Output 03/25/23 03/26/23 03/26/23 22:59 06:59 14:59 Output Total 225 200 Balance -225 -200 Output: Urine 225 200 Other: Voiding Method Urinal Urinal # Bowel Movements 1 03/22/23 06:42 03/25/23 06:54
[2023-03-27 11:22] LABS: Glucose,Whole Blood 122 mg/dL (70-110)
[2023-03-27] MEDS ORDERED: fentaNYL (PF) 50 MCG/ML 2 ML AMP ONE (12:36)
[2023-03-27] MEDS ORDERED: IV FLUID CONTINUATION 200 ML IV ONE (12:52)
[2023-03-27] MEDS ORDERED: fentaNYL (PF) 50 MCG/ML 2 ML AMP IVP ONE (13:07)
[2023-03-27] MEDS ORDERED: MIDAZOLAM 2 MG/2 ML VIAL IVP ONE (13:07)
[2023-03-27 14:03] LABS: Basophils % (A) 1.1 %; Eosinophils # (A) 0.69 X 10*3/uL (0.04-0.35); Eosinophils % (A) 7.6 %; HCT 25.9 % (39.6-50.0); HGB 7.4 d/dL (13.0-17.0); Lymphocytes # (A) 1.81 X 10*3/uL (0.90-5.00); MCH 28.1 pg (27.0-32.0); MCHC 28.6 d/dL (32.0-37.0); MCV 98.5 FL (80.0-97.0); Mean Platelet Volume 8.9 FL (9.5-12.2); Monocytes # (A) 1.02 X 10*3/uL (0.20-1.00); Monocytes % (A) 11.3 %; NRBC Per 100 WBC 0 X 10*3/uL (0.00-0.01); Neutrophils # (A) 5.17 X 10*3/uL (1.80-7.70); Neutrophils % (A) 57.2 %; Platelet Count 402 X 10*3/uL (140-440); RBC 2.63 X 10*6/uL (4.40-5.60); RDW 15.6 % (11.5-14.5); WBC 9.04 X 10*3/uL (4.50-10.00)
[2023-03-27] MEDS: DARBEPOETIN ALFA 60 MCG/0.3 ML SYRINGE SQ SCH (15:04)
--- NOTE | 2023-03-27 15:24 | P.PN ---
Subjective Progress Note Date: 03/27/23 67-year-old male who was recently discharged from the hospital about 2 days ago after hospitalization for acute kidney injury volume overload and acute diastolic CHF and acute hypoxic respiratory failure. Patient was significantly volume overloaded and was started on hemodialysis. Urine output had improved however patient remains significantly volume overloaded and therefore hemodialysis was continued as outpatient. Patient did make it to his first outpatient treatment and stated that he felt quite weak when he went home and he has not been able to perform activities of daily living or to get out of bed. No complaints of new fever nausea vomiting abdominal pain or diarrhea. Shortness of breath not worse Patient continues to have significant swelling in the upper and lower extremities Patient has an indwelling Barkley catheter for urine retention. 03/15/2023 Patient is seen and evaluated sitting up in bedside chair Patient is admitted with acute kidney injury, hemodialysis dependent. Currently sitting up in chair. Urine output about 400 mL in 24 hours. Barkley catheter removed. No evidence of retention. -- On antibiotics for group D enterococcus bacteremia. in form of IV Cefepime and Vancomycin; ID on board; final culture and sensitivity is pending. 03/16/2023 Patient is seen and evaluated and follow-up currently receiving hemodialysis with nephrology and infectious disease following. Patient maintained on IV antibiotics awaiting repeat cultures and cultures from the right chest wall permacath with concerns of dialysis port infection. Patient is being treated for an acute urinary tract infection, present on admission most likely secondary to indwelling Barkley catheter. Barkley catheter has been removed and patient is voiding with no difficulties. Patient will likely receive ultrafiltration dialysis in the a.m. as well. Awaiting PT/OT therapy evaluation and patient will likely be going to [facility] once stabilized discharge. Patient is afebrile with no reported chest pain or worsening shortness of breath. Patient continues on 4 L which he was sent home with previous admission secondary to managing his CHF. Patient denies nausea or vomiting and is tolerating diet. Patient reports the hospital food is not very appetizing. Will continue Accu- Cheks before meals and at bedtime 03/17/2023 Patient seen and evaluated in follow-up this morning continuing on dialysis with nephrology following closely. Hemoglobin was 6.9 today and will give 1 unit of PRBC follow-up with repeat labs in a.m. Patient remains on antibiotics with in fectious disease following as well his blood cultures remained positive for enterococcus. Repeat blood cultures have been ordered again from the [facility] and awaiting finalized cultures. Patient denies chest pain or worsening shortness of breath. Patient continues on 5 L via nasal cannula. No reported nausea or vomiting patient is tolerating diet. Blood sugars are well-controlled at this time. Recommend PT/OT therapy daily as patient will be going to ECF once stabilized and discharged. 03/18/2023 Patient is seen in follow-up this morning just received dialysis and fatigued although arousable. is at bedside. Hemoglobin has improved to 8.8 after a unit of PRBC yesterday. Patient will likely receive dialysis again tomorrow and will follow-up with repeat labs. Cultures remain positive in multiple cultures have been received and pending from the [facility] site. Infectious disease following. Overall poor prognosis. Patient remains full code. Patient is afebrile denies chest pain or worsening shortness of breath. Patient continues on 5 L via nasal cannula. Blood sugars have been becoming more elevated will add sliding scale. 03/19/2023 Patient is seen in follow-up being followed by nephrology along with infectious disease and vascular surgery consulted and will be having dialysis catheter removed as there is concern for continued contamination with positive blood cultures. Blood cultures remain positive and some samples have been ordered specifically from [facility] although unsure if collected this way. Infectious disease along with nephrology both in agreement that dialysis catheter needs to be removed and patient will have dialysis today and then removed. Awaiting a.m. labs. Patient is continued on vancomycin and will continue for now. Patient is afebrile no reported worsening shortness of breath and denies chest pains. Patient tolerating diet and blood sugars will be continued to be monitored with Accu-Cheks before meals and at bedtime and sliding scale as needed. 03/20/2023 Patient is seen in follow-up this morning is awake and alert sitting up in the chair. Patient and report he was able to walk a few steps to the end of the couch with walker. Patient continues with significant weakness and will be going to rehab once cleared by consultations and would recommend PT/OT therapy daily. Patient did have right chest wall dialysis catheter removed today by vascular surgery and tip was sent for culture. Patient continues to be on vancomycin with infectious disease following and awaiting repeat cultures to finalized. Previous cultures have been still positive for enterococcus. Patient is afebrile and white count is 14 and hemoglobin is currently stable. Patient has no Barkley catheter and has been voiding. Patient denies any pain or burning with urinary frequency. Patient received dialysis yesterday and will not receive dialysis again until Thursday and nephrology is following closely. Follow-up labs ordered for a.m. 03/21/2023 Patient is evaluated today sitting up in the chair. He is being treated for enterococcus bacteremia and remains on IV antibiotics in the form of vancomycin. His most recent blood culture remains positive for enterococcus. He had his right IJ dialysis catheter removed with tip sent for culture. He additionally has a wound to his left mcdermott. Infectious disease is following closely as well as nephrology he is maintained on hemodialysis Thursday. Patient's main complaint is chronic pain for which we will recommend to increase his Archie to Archie 7.5 and recommend to discontinue the morphine due to his renal dysfunction. Labs today showing White Count 12.7, Hemoglobin 8.2, Sodium 1:30, Creatinine 3.78. 03/22/2023 Patient is evaluated today sitting up in the chair. He doesn't report much improvement in his pain although Archie has been increased up to Archie 7.5. Recommending to remain off of morphine at this time. Patient is a hemodialysis patient Thursday as scheduled next receive hemodialysis tomorrow or Thursday. 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 Preliminary culture from the permacath that was removed is negative so far. White count 12.0, hemoglobin 8.0, sodium 131, creatinine 4.23. 03/23/2023 Patient remains in the medical floor. Permacath was removed with tip culture pending pulmonary so far negative as well as repeat blood cultures are negative so far. Patient has had persistent enterococcus bacteremia and also had urine culture showing enterococcus. He remains on antibiotics in the form of IV Vancomycin. He is usually on a hemodialysis schedule Thursday however patient does not have a hemodialysis catheter in place and also has no AV fistula and plan is to tentatively receive a new dialysis catheter tomorrow Thursday at the earliest. Reports pain management has improved with the Archie 7.5. He remains on 5 L of oxygen with a saturation of 99%. Hemodynamically he is stable. 03/24/2023 Patient is seen this morning in follow-up and discussed with micro-lab about clearance of bacteremia and most recent blood cultures and catheter tip from [facility] have been negative for 72 hours. Infectious disease following and has cleared the patient for dialysis catheter placement today. Dr. Cano following and will be replacing and patient needs dialysis. Nephrology following and patient will have dialysis once the catheter is placed. Patient reporting increased shortness of breath most likely due to requiring dialysis as patient has not had since . Patient continues on IV antibiotics in the form of vancomycin with infectious disease following and will continue. Patient also to continue with local wound care and offloading to the sacral area and elevating lower extremities at rest. Patient continues on 6 L via nasal cannula and has been wearing 5 L chronically since last admission. Patient to work with physical therapy and is agreeable to rehab. Will discuss further with consultations about discharge planning once patient receives dialysis catheter. Patient is currently afebrile with no reported chest pain or palpitations. Maya ent is tolerating diet with no reported nausea or vomiting. 03/25/2023 Patient is seen in follow-up today status post receiving a dialysis catheter with vascular surgery and received dialysis late last night and again today. Plan is for removal of 2-3 L. Patient's blood pressure is extremely low and is being maintained on midodrine during dialysis. Patient is weak and tired today and awaiting a.m. labs. Potassium elevated and awaiting follow-up after dialysis. Patient continues with IV antibiotics in the form of vancomycin with infectious disease following. Patient will receive vancomycin with dialysis for the next 2 weeks and is planning on going to ECF. Patient has been accepted at [facility] and requiring insurance authorization. Case management is following and has submitted for authorization. Patient is afebrile denies chest pain. Continues to report shortness of breath and maintained on 5-6 L via nasal cannula. 03/26/2023 Patient is seen and evaluated in follow-up this morning lethargic although arousable. Patient did receive another dialysis catheter and received dialysis with possible further ultrafiltration today if not tomorrow morning. Patient continues to report shortness of breath and maintained on 5 L and maintaining oxygen saturations above 95% recommend a wean FiO2 as tolerated. Per nursing staff patient has been requesting to increase oxygen supply up to 6 L although is 98%. Patient likely needs repeat dialysis. Patient continues with signific ant overload and is being given a dose of Lasix again today per nephrology. Patient to continue with vancomycin with dialysis for 2 week course on discharge as repeat cultures have been negative and catheter tip culture was negative as well. This was discussed with infectious disease. Cardiology being consulted to discuss possible HERIBERTO to ensure no endocarditis. Will await cardiology input and recommendations. Patient is afebrile with no reported chest pain or palpitations. Patient tolerating diet with no reported nausea or vomiting. Patient continues to be significantly weak and has been somewhat agreeable to work with physical therapy on nondialysis days. Patient reports he is signi ficantly more weak on the days he receives dialysis. 03/27/2023 Patient is seen in follow-up today and cardiology has been consulted for HERIBERTO which is tentatively scheduled for today. Patient to receive dialysis as well today with nephrology following closely. Patient also maintained on antibiotics in the form of vancomycin with infectious disease following closely. Infectious disease recommending HERIBERTO to ensure no abnormalities noted as patient had persistent bacteremia. Most recent blood culture from 03/21/2023 has been negative for 5 days. Patient's blood pressure has been slightly elevated today and patient does take atenolol daily. Will monitor as patient's blood pressures have been in the lower and requiring midodrine during dialysis. Patient with multiple medical consultations following along with physical therapy as patient continues with prolonged hospitalization and significant weakness and needs ECF for continued strength and mobility. Patient has had 2 prolonged hos pitalizations over the last 2 months and prior to this patient was independent in ADLs and walking. Patient would benefit from ECF to build strength and mobility prior to returning home. Most recent hospitalization and discharge patient felt would be okay to go home although was unable to tolerate walking and was brought back to the ER via EMS. Patient continues to make urine without an indwelling Barlkey catheter. Patient reports is having bowel movements and tolerating diet. Blood sugars have been well-controlled and will continue with Accu-Cheks before meals and at bedtime as well as sliding scale as needed. Review of systems: Constitutional: reports of fatigue, no fever, or chills Cardiovascular: No reports of chest pain or palpitations Respiratory: reports of continued shortness of breath GI: No reports of nausea, vomiting, or diarrhea, reports having bowel movements : No reports of dysuria or retention, reports urinating with no difficulties Neurovascular: reports of generalized weakness All medications have been reviewed Physical exam: Gen: This is a 67-year-old male who is asleep although easily arousable , alert and oriented 3, well-developed, obese, ill-appearing, appears older than stated age HEENT: Head is atraumatic, normocephalic. Pupils equal, round. Sclerae is anicteric. NECK: Supple. No JVD. No lymphadenopathy. No thyromegaly. LUNGS: Diminished breath sounds bilaterally with some scattered rhonchi. No intercostal retractions. HEART: S1, S2 are muffled ABDOMEN: Soft. Obese. Bowel sounds are present. No masses. No tenderness. EXTREMITIES: pedal edema. No calf tenderness. Significant bilateral upper and lower extremity edema. Left lower extremity mcdermott with bullous pemphigus lesion noted NEUROLOGICAL: Patient is awake, alert and oriented x3. Cranial nerves 2 through 12 are grossly intact. Diffusely weak Assessment: Acute renal failure, nonoliguric, acute tubular necrosis secondary to cardiorenal syndrome and hypotension, recently started on dialysis on 02/25/2023 last admission Acute on chronic diastolic congestive heart failure, acute exacerbation Acute on chronic hypoxic respiratory failure, secondary to CHF exacerbation Acute urinary tract infection, present on admission, secondary to indwelling Barkley catheter growing enterococcus Features of sepsis, present on admission secondary to urinary tract infection with bacteremia Anemia, iron deficiency Pressure ulcers, stage II, bilateral buttocks, present on admission History of diabetes mellitus, type II, [id number] Group D enterococcus bacteremia possibly secondary to urinary tract infection also with concerns of possible dialysis catheter infection and cultures from dialysis catheter tip are negative 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 History of bullous pemphigus, has chronic left lower extremity wound GI prophylaxis DVT prophylaxis Full code Plan: -Patient continues on IV vancomycin for the enterococcus bacteremia repeat blood cultures have been negative for the last 72 hours and permacath culture tip was negative as well. Patient has been cleared by infectious disease and has received another dialysis catheter placed with Dr. Cano and is currently receiving dialysis today. -Case management following and will be submitted for insurance authorization as patient has been accepted at [facility]. Patient will continue on vancomycin with dialysis for 2 weeks on discharge -Infectious disease recommended cardiology consultation for HERIBERTO which was done today showing no vegetation with no endocarditis -Okay is maintained on Xarelto -continue renal diet with fluid restrictions. Continue Accu-Cheks before meals and at bedtime and sliding scale as needed -Patient has been voiding without a Barkley and will continue to monitor intake and output closely -Continue with PT/OT therapy daily. Patient was independent with ADLs prior to these hospitalizations and has had 2 prolonged hospitalization secondary to significant comorbidities requiring emergent dialysis and IV antibiotic therapy. Patient would benefit greatly at an ECF with continued PT/OT therapy for strengthening mobility prior to returning home. Patient was discharged on Lasix admission and went home and was too weak requiring immediate readmission to the hospital and was also found to have a UTI with bacteremia with concerns of permacath infection. Patient has had that cath removed and cultures were negative. Patient will continue on 2 weeks of vancomycin with dialysis and close outpatient follow-up with infectious disease. Insurance is requesting a peer to peer for evaluation and approval of going to ECF. Currently pending and scheduled for this afternoon on 03/27/2023. -Overall prognosis is poor and guarded The impression and plan of care has been dictated by Sandra Ayala, Nurse Practitioner as directed. Dr. Cleopatra MD I have performed a history and examination and MDM of this patient, discussed the same with the dictator, and agree with the dictator's assessment and plan as written ,documented as a scribe. Based on total visit time, I have performed more than 50% of the visit. Objective - Vital Signs Vital signs: Vital Signs Temp 97.7 F 03/27/23 08:00 Pulse 89 03/27/23 02:00 Resp 18 03/27/23 02:00 BP 115/60 03/27/23 07:08 Pulse Ox 95 03/27/23 02:00 FiO2 Intake & Output 03/26/23 03/27/23 03/27/23 18:59 06:59 18:59 Intake Total 300 Output Total 2850 100 Balance -2550 -100 Weight 113.398 kg Intake: Hemodialysis 300 Output: Urine 550 100 Hemodialysis 2300 Other: Voiding Method Urinal Urinal - Labs CBC & Chem 7: 03/27/23 06:31 03/27/23 06:31 Labs: Abnormal Lab Results - Last 24 Hours (Table) 03/26/23 03/26/2323 Range/Units 06:50 06:50 11:26 RBC 2.65 L (4.40-5.60) X 10*6/uL Hgb 7.7 L (13.0-17.0) d/dL Hct 26.3 L (39.6-50.0) % MCV 99.2 H (80.0-97.0) FL MCHC 29.3 L (32.0-37.0) d/dL RDW 15.4 H (11.5-14.5) % MPV 9.0 L (9.5-12.2) FL Monocytes # 1.17 H (0.20-1.00) X 10*3/uL Eosinophils # 0.66 H (0.04-0.35) X 10*3/uL Sodium (137-145) mmol/L BUN (9-20) mg/dL Creatinine 3.0 H (0.6-1.5) mg/dL Est GFR (CKD-EPI) 22 L (>=60) BUN/Creatinine Ratio 7.27 L (12.00-20.00) Ratio Glucose 128 H (70-110) mg/dL POC Glucose (mg/dL) 141 H (70-110) mg/dL Calcium 7.7 L (8.7-10.3) mg/dL 03/26/23 03/26/23 03/27/23 Range/Units 16:57 20:34 06:02 RBC (4.40-5.60) X 10*6/uL Hgb (13.0-17.0) d/dL Hct (39.6-50.0) % MCV (80.0-97.0) FL MCHC (32.0-37.0) d/dL RDW (11.5-14.5) % MPV (9.5-12.2) FL Monocytes # (0.20-1.00) X 10*3/uL Eosinophils # (0.04-0.35) X 10*3/uL Sodium (137-145) mmol/L BUN (9-20) mg/dL Creatinine (0.6-1.5) mg/dL Est GFR (CKD-EPI) (>=60) BUN/Creatinine Ratio (12.00-20.00) Ratio Glucose (70-110) mg/dL POC Glucose (mg/dL) 162 H 124 H 130 H (70-110) mg/dL Calcium (8.7-10.3) mg/dL 03/27/23 Range/Units 06:31 RBC (4.40-5.60) X 10*6/uL Hgb (13.0-17.0) d/dL Hct (39.6-50.0) % MCV (80.0-97.0) FL MCHC (32.0-37.0) d/dL RDW (11.5-14.5) % MPV (9.5-12.2) FL Monocytes # (0.20-1.00) X 10*3/uL Eosinophils # (0.04-0.35) X 10*3/uL Sodium 132 L (137-145) mmol/L BUN 33 H (9-20) mg/dL Creatinine 3.28 H (0.6-1.5) mg/dL Est GFR (CKD-EPI) (>=60) BUN/Creatinine Ratio (12.00-20.00) Ratio Glucose 115 H (70-110) mg/dL POC Glucose (mg/dL) (70-110) mg/dL Calcium 7.4 L (8.7-10.3) mg/dL Microbiology - Last 24 Hours (Table) 03/21/23 07:35 Blood Culture - Final Blood
[2023-03-27 16:43] LABS: Glucose,Whole Blood 222 mg/dL (70-110)
--- NOTE | 2023-03-27 18:21 | P.PCN ---
Date of Procedure: 03/27/23 Operative Findings: TRANSESOPHAGEAL ECHOCARDIOGRAM FLIGHT SOFTWARE TEST ENGINEER: REAGAN FLORENCE MD, RPVI INDICATION: Rule out infective endocarditis SEDATION: Conscious sedation COMPLICATION: None LEVEL OF SEDATION Moderate was sedation length of 20 minutes PROCEDURE DESCRIPTION: After obtaining an informed consent, the patient was brought to transesophageal echocardiogram room. Pulse oximetry and heart monitors were attached to the patient. The patient throat was sprayed using lidocaine. The patient was turned into left lateral position. After that a bite guard was placed. After an appropriate conscious sedation was initiated, the transesophageal echocardiogram was advanced through a bite guard into the mid esophagus. A 2-D echocardiogram images, color Doppler images, continuous wave images, pulse-wave images, of various cardiac structure were performed. After that the transesophageal echocardiogram probe was advanced into the stomach and fixed to obtain transgastric view was. The probe was brought into the mid esophagus. Inter-atrial septum was interrogated using 2D images, color Doppler images, and then contrast study. After that transesophageal echocardiogram was withdrawn out and upon withdrawing the descending thoracic aorta all the way up to the arch was evaluated. FINDING: The left ventricular dimension and systolic function appeared to be within normal limits. The right ventricular dimension and systolic function appeared to be within normal limits. The interatrial septum appeared to be intact. The left atrial appendage appeared to be intact. The aortic valve is trileaflet valve with no stenosis or regurgitation. No evidence of infective endocarditis was identified on the aortic valve. The mitral valve appeared to be normal as well with mild to moderate mitral regurgitation. There is mild tricuspid regurgitation. No evidence of pericardial effusion. No evidence of infective endocarditis was identified and no evidence of any abscess identified as well. CONCLUSION: 1. No evidence of infective endocarditis 2. Intact intracardiac valves with no evidence of vegetation 3. Normal aortic root with no evidence of abscess 4. Normal left ventricular dimension and systolic function 5. Normal right ventricular dimension and systolic function 6. No evidence of pericardial effusion
[2023-03-27 20:34] LABS: Glucose,Whole Blood 125 mg/dL (70-110)
[2023-03-28] MEDS: HYDROcodone/APAP 7.5-325MG 1 EACH TAB PO PRN ×5 (02:56→21:42)
[2023-03-28 05:10] LABS: Glucose,Whole Blood 135 mg/dL (70-110)
[2023-03-28] MEDS: INSULIN ASPART (NovoLOG) 100 UNIT/ML VIAL SQ SCH ×4 (05:53→21:42)
[2023-03-28] MEDS: MIDODRINE 5 MG TAB PO SCH ×3 (06:47→17:05)
[2023-03-28] MEDS: atenoloL 25 MG TAB PO SCH (07:53)
[2023-03-28] MEDS: TAMSULOSIN 0.4 MG CAP.ER.24H PO SCH (07:54)
[2023-03-28] MEDS: MAGNESIUM OXIDE 400 MG TAB PO SCH ×2 (07:54→21:42)
[2023-03-28] MEDS: THIAMINE 100 MG TAB PO SCH (07:54)
[2023-03-28] MEDS: TORSEMIDE 20 MG TAB PO SCH (07:54)
[2023-03-28] MEDS: ATORVASTATIN 40 MG TAB PO SCH (07:54)
[2023-03-28] MEDS: ASPIRIN 81 MG PO SCH (07:54)
[2023-03-28] MEDS: RIVAROXABAN 20 MG TAB PO SCH (07:54)
[2023-03-28] MEDS: CHOLECALCIFEROL 125 MCG (5000 IU) TABLET PO SCH (07:55)
[2023-03-28 09:20] LABS: African American GFR (CKD) 22 (>60 ml/min/1.73 sqM); Non-African American GFR(CKD) 19 (>60 ml/min/1.73 sqM)
[2023-03-28 09:25] LABS: Vancomycin,Random 20.6 ug/mL
[2023-03-28 11:45] LABS: Glucose,Whole Blood 130 mg/dL (70-110)
--- NOTE | 2023-03-28 13:11 | P.PN ---
Subjective Patient is seen in follow-up for acute kidney injury, hemodialysis dependent. Urine output remains low. Tolerating dialysis well. Hemodynamically stable. present at bedside. Vital signs are stable. General: No acute distress. HEENT: Head exam is unremarkable. On nasal cannula. LUNGS: Scattered rhonchi. HEART: Rate and Rhythm are regular. ABDOMEN: Nontender. EXTREMITITES: 2+ edema. Objective - Vital Signs Vital signs: Vital Signs Temp 98.0 F 03/28/23 06:50 Pulse 107 H 03/28/23 06:50 Resp 18 03/28/23 06:50 BP 115/68 03/28/23 06:50 Pulse Ox 97 03/28/23 06:50 FiO2 Intake & Output 03/27/23 03/28/23 03/28/23 18:59 06:59 18:59 Intake Total 350 480 Output Total 4300 250 Balance -3950 230 Intake: IV 50 Oral 480 Hemodialysis 300 Output: Urine 250 Hemodialysis 4300 Other: Voiding Method Urinal # Voids 1 # Bowel Movements 1 - Labs CBC & Chem 7: 03/27/23 06:31 03/28/23 07:36 Labs: Abnormal Lab Results - Last 24 Hours (Table) 03/27/23 03/27/23 03/27/23 Range/Units 06:31 16:42 20:33 RBC 2.63 L (4.40-5.60) X 10*6/uL Hgb 7.4 L (13.0-17.0) d/dL Hct 25.9 L (39.6-50.0) % MCV 98.5 H (80.0-97.0) FL MCHC 28.6 L (32.0-37.0) d/dL RDW 15.6 H (11.5-14.5) % MPV 8.9 L (9.5-12.2) FL Monocytes # 1.02 H (0.20-1.00) X 10*3/uL Eosinophils # 0.69 H (0.04-0.35) X 10*3/uL Creatinine (0.66-1.25) mg/dL POC Glucose (mg/dL) 222 H 125 H (70-110) mg/dL 03/28/23 03/28/23 03/28/23 Range/Units 05:08 07:36 11:26 RBC (4.40-5.60) X 10*6/uL Hgb (13.0-17.0) d/dL Hct (39.6-50.0) % MCV (80.0-97.0) FL MCHC (32.0-37.0) d/dL RDW (11.5-14.5) % MPV (9.5-12.2) FL Monocytes # (0.20-1.00) X 10*3/uL Eosinophils # (0.04-0.35) X 10*3/uL Creatinine 3.16 H (0.66-1.25) mg/dL POC Glucose (mg/dL) 135 H 130 H (70-110) mg/dL Assessment and Plan Plan: Assessment: 1. Acute kidney injury secondary to ATN secondary to cardiorenal syndrome, hypotension started on hemodialysis 02/25/2023. Baseline creatinine near 1 from September 2022. 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 No hydronephrosis noted on kidney ultrasound done 02/25/2023. 2. Acute on chronic diastolic CHF. 3. Volume overload. Improving with ultrafiltration. 4. Anemia. Iron deficiency noted - s/p IV iron. On Aranesp. 5. Group D enterococcus bacteremia. Likely urinary source. Urine culture positive for enterococcus. ID following. Also concern for permacath infection -status post removal and new catheter placed 03/24/2023. Plan: Currently seen while undergoing hemodialysis. Receiving an additional treatment today mostly for ultrafiltration. He will be maintained on Thursday schedule outpatient. Phosphorus level 5.4 dated 03/13/2023. Monitor for renal recovery outpatient. Maintain torsemide. Monitor vancomycin levels. Dose to be adjusted for renal function.
[2023-03-28 16:28] LABS: Glucose,Whole Blood 167 mg/dL (70-110)
[2023-03-28 20:41] LABS: Glucose,Whole Blood 176 mg/dL (70-110)
--- NOTE | 2023-03-28 21:42 | P.PN ---
Subjective Progress Note Date: 03/27/23 Principal diagnosis: Catheter associated UTI and bacteremia Patient is a 67-year-old male with a past medical history significant for type 2 diabetes mellitus hypertension hyperlipidemia atrial fibrillation with recent diagnosis of renal failure for the patient did have a dialysis catheter placement, presented to hospital with weakness patient noticed to have elevated white count positive UA concerning for catheter since UTI. Patient blood culture subsequently came back positive with Enterococcus. Patient did have removal of the palmar catheter on 03/20/2023, patient did have a new permacath placement on 03/24/2023. Patient is status post HERIBERTO completed 03/27/2023 that was negative for any vegetation. On today's evaluation that is 03/27/2023, the patient denies having any fever or any chills he is breathing comfortably on 6 L nasal cannula oxygen but denies having any chest pain denies any worsening cough or sputum production abdominal pain or diarrhea. Patient did have a white count of 9.04 creatinine 3.28 random Vanco level is 24 point 2 repeat culture has been negative Objective - Vital Signs Vital signs: Vital Signs Temp 97.7 F 03/27/23 08:00 Pulse 97 03/27/23 12:53 Resp 14 03/27/23 12:53 BP 133/76 03/27/23 12:53 Pulse Ox 97 03/27/23 12:53 FiO2 Intake & Output 03/26/23 03/27/23 03/27/23 18:59 06:59 18:59 Intake Total 300 Output Total 2850 100 Balance -2550 -100 Weight 113.398 kg Intake: Hemodialysis 300 Output: Urine 550 100 Hemodialysis 2300 Other: Voiding Method Urinal Urinal - Exam GENERAL DESCRIPTION: An elderly male lying in bed in no distress RESPIRATORY SYSTEM: Unlabored breathing , decreased breath sounds at bases HEART: S1 S2 regular rate and rhythm , ABDOMEN: Soft , no tenderness EXTREMITIES: No edema feet - Labs CBC & Chem 7: 03/27/23 06:31 03/28/23 07:36 Labs: Abnormal Lab Results - Last 24 Hours (Table) 03/26/23 03/26/23 03/26/23 Range/Units 06:50 06:50 16:57 RBC 2.65 L (4.40-5.60) X 10*6/uL Hgb 7.7 L (13.0-17.0) d/dL Hct 26.3 L (39.6-50.0) % MCV 99.2 H (80.0-97.0) FL MCHC 29.3 L (32.0-37.0) d/dL RDW 15.4 H (11.5-14.5) % MPV 9.0 L (9.5-12.2) FL Monocytes # 1.17 H (0.20-1.00) X 10*3/uL Eosinophils # 0.66 H (0.04-0.35) X 10*3/uL Sodium (137-145) mmol/L BUN (9-20) mg/dL Creatinine 3.0 H (0.6-1.5) mg/dL Est GFR (CKD-EPI) 22 L (>=60) BUN/Creatinine Ratio 7.27 L (12.00-20.00) Ratio Glucose 128 H (70-110) mg/dL POC Glucose (mg/dL) 162 H (70-110) mg/dL Calcium 7.7 L (8.7-10.3) mg/dL 03/26/23 03/27/23 03/27/23 Range/Units 20:34 06:02 06:31 RBC (4.40-5.60) X 10*6/uL Hgb (13.0-17.0) d/dL Hct (39.6-50.0) % MCV (80.0-97.0) FL MCHC (32.0-37.0) d/dL RDW (11.5-14.5) % MPV (9.5-12.2) FL Monocytes # (0.20-1.00) X 10*3/uL Eosinophils # (0.04-0.35) X 10*3/uL Sodium 132 L (137-145) mmol/L BUN 33 H (9-20) mg/dL Creatinine 3.28 H (0.6-1.5) mg/dL Est GFR (CKD-EPI) (>=60) BUN/Creatinine Ratio (12.00-20.00) Ratio Glucose 115 H (70-110) mg/dL POC Glucose (mg/dL) 124 H 130 H (70-110) mg/dL Calcium 7.4 L (8.7-10.3) mg/dL 03/27/23 Range/Units 11:21 RBC (4.40-5.60) X 10*6/uL Hgb (13.0-17.0) d/dL Hct (39.6-50.0) % MCV (80.0-97.0) FL MCHC (32.0-37.0) d/dL RDW (11.5-14.5) % MPV (9.5-12.2) FL Monocytes # (0.20-1.00) X 10*3/uL Eosinophils # (0.04-0.35) X 10*3/uL Sodium (137-145) mmol/L BUN (9-20) mg/dL Creatinine (0.6-1.5) mg/dL Est GFR (CKD-EPI) (>=60) BUN/Creatinine Ratio (12.00-20.00) Ratio Glucose (70-110) mg/dL POC Glucose (mg/dL) 122 H (70-110) mg/dL Calcium (8.7-10.3) mg/dL Microbiology - Last 24 Hours (Table) 03/21/23 07:35 Blood Culture - Final Blood Assessment and Plan (1) Bacteremia Current Visit: Yes Status: Acute Code(s): R78.81 - BACTEREMIA SNOMED Code(s): 3784765 (2) UTI (urinary tract infection) Current Visit: Yes Status: Acute Code(s): N39.0 - URINARY TRACT INFECTION, SITE NOT SPECIFIED SNOMED Code(s): 06149742 Plan: 1patient with Enterococcus faecalis bacteremia source possible urinary however underlying permacatheter infection not entirely excluded, Patient did have evidence of persistent bacteremia that is highly suspicious for line related infection 2-patient dialysis catheter was discontinued on 03/20/2023,Catheter tip has been negative so far blood culture repeat on 03/20/2023 as well as 03/21/2023, so far pending echocardiogram did not show any vegetation however it was a poor study 3-patient seemed to have cleared his bacteremia as a blood culture drawn on 03/20/2023 remains to be negative patient did got dialysis catheter on 03/24/2023 4the patient is status post HERIBERTO that was negative for any vegetation, plan is to continue patient on vancomycin pharmacy to dose through the dialysis to finish a 2-week course of therapy and monitor clinical course closely Dictation was produced using [employer] dictation software. please excuse any grammatical, word or spelling errors. Time with Patient: Less than 30
--- NOTE | 2023-03-28 21:44 | P.PN ---
Subjective Progress Note Date: 03/28/23 Principal diagnosis: Catheter associated UTI and bacteremia Patient is a 67-year-old male with a past medical history significant for type 2 diabetes mellitus hypertension hyperlipidemia atrial fibrillation with recent diagnosis of renal failure for the patient did have a dialysis catheter placement, presented to hospital with weakness patient noticed to have elevated white count positive UA concerning for catheter since UTI. Patient blood culture subsequently came back positive with Enterococcus. Patient did have removal of the palmar catheter on 03/20/2023, patient did have a new permacath placement on 03/24/2023. Patient is status post HERIBERTO completed 03/27/2023 that was negative for any vegetation. On today's evaluation that is 03/28/2023, the patient remains to be afebrile, the patient is breathing comfortably on 6 L nasal cannula oxygen but denies having a ny chest pain denies any worsening cough or sputum production abdominal pain or diarrhea. Patient did have CBC done today Objective - Vital Signs Vital signs: Vital Signs Temp 98.0 F 03/28/23 06:50 Pulse 107 H 03/28/23 06:50 Resp 18 03/28/23 06:50 BP 115/68 03/28/23 06:50 Pulse Ox 97 03/28/23 06:50 FiO2 Intake & Output 03/27/23 03/28/23 03/28/23 18:59 06:59 18:59 Intake Total 350 480 Output Total 4300 250 Balance -3950 230 Intake: IV 50 Oral 480 Hemodialysis 300 Output: Urine 250 Hemodialysis 4300 Other: Voiding Method Urinal # Voids 1 # Bowel Movements 1 - Exam GENERAL DESCRIPTION: An elderly male lying in bed in no distress RESPIRATORY SYSTEM: Unlabored breathing , decreased breath sounds at bases HEART: S1 S2 regular rate and rhythm , ABDOMEN: Soft , no tenderness EXTREMITIES: No edema feet - Labs CBC & Chem 7: 03/27/23 06:31 03/28/23 07:36 Labs: Abnormal Lab Results - Last 24 Hours (Table) 03/27/23 03/27/23 03/27/23 Range/Units 06:31 16:42 20:33 RBC 2.63 L (4.40-5.60) X 10*6/uL Hgb 7.4 L (13.0-17.0) d/dL Hct 25.9 L (39.6-50.0) % MCV 98.5 H (80.0-97.0) FL MCHC 28.6 L (32.0-37.0) d/dL RDW 15.6 H (11.5-14.5) % MPV 8.9 L (9.5-12.2) FL Monocytes # 1.02 H (0.20-1.00) X 10*3/uL Eosinophils # 0.69 H (0.04-0.35) X 10*3/uL Creatinine (0.66-1.25) mg/dL POC Glucose (mg/dL) 222 H 125 H (70-110) mg/dL 03/28/23 03/28/23 03/28/23 Range/Units 05:08 07:36 11:26 RBC (4.40-5.60) X 10*6/uL Hgb (13.0-17.0) d/dL Hct (39.6-50.0) % MCV (80.0-97.0) FL MCHC (32.0-37.0) d/dL RDW (11.5-14.5) % MPV (9.5-12.2) FL Monocytes # (0.20-1.00) X 10*3/uL Eosinophils # (0.04-0.35) X 10*3/uL Creatinine 3.16 H (0.66-1.25) mg/dL POC Glucose (mg/dL) 135 H 130 H (70-110) mg/dL Assessment and Plan (1) Bacteremia Current Visit: Yes Status: Acute Code(s): R78.81 - BACTEREMIA SNOMED Code(s): 0677886 (2) UTI (urinary tract infection) Current Visit: Yes Status: Acute Code(s): N39.0 - URINARY TRACT INFECTION, SITE NOT SPECIFIED SNOMED Code(s): 96580576 Plan: 1patient with Enterococcus faecalis bacteremia source possible urinary however underlying permacatheter infection not entirely excluded, Patient did have evidence of persistent bacteremia that is highly suspicious for line related infection 2-patient dialysis catheter was discontinued on 03/20/2023,Catheter tip has been negative so far blood culture repeat on 03/20/2023 as well as 03/21/2023, so far pending echocardiogram did not show any vegetation however it was a poor study 3-patient seemed to have cleared his bacteremia as a blood culture drawn on 03/20/2023 remains to be negative patient did got dialysis catheter on 03/24/2023 4the patient is status post HERIBERTO that was negative for any vegetation, 5-patient to continue patient on vancomycin pharmacy to dose through the dialysis to finish a 2-week course of therapy and monitor clinical course closely at the bedside questions concern answered Dictation was produced using [employer] dictation software. please excuse any grammatical, word or spelling errors.
[2023-03-29] MEDS: HYDROcodone/APAP 7.5-325MG 1 EACH TAB PO PRN ×6 (02:01→23:06)
[2023-03-29 06:03] LABS: Glucose,Whole Blood 141 mg/dL (70-110)
[2023-03-29] MEDS: INSULIN ASPART (NovoLOG) 100 UNIT/ML VIAL SQ SCH ×4 (06:11→21:17)
[2023-03-29] MEDS: MIDODRINE 5 MG TAB PO SCH ×3 (06:43→17:13)
[2023-03-29] MEDS ORDERED: VANCOMYCIN 1,750 MG in SODIUM CHLORIDE 0.9% 500 ML 500 ML IVPB ONE (07:00)
[2023-03-29 09:00] LABS: Hepatitis B Surface Antigen Nonreactive
[2023-03-29 09:20] LABS: African American GFR (CKD) 27 (>60 ml/min/1.73 sqM); Anion Gap 1 mmol/L; Blood Urea Nitrogen 25 mg/dL (9-20); Calcium 7.5 mg/dL (8.4-10.2); Carbon Dioxide 31 mmol/L (22-30); Chloride 101 mmol/L (98-107); Glucose 118 mg/dL (74-99); Non-African American GFR(CKD) 23 (>60 ml/min/1.73 sqM); Sodium 133 mmol/L (137-145)
[2023-03-29] MEDS: THIAMINE 100 MG TAB PO SCH (09:40)
[2023-03-29] MEDS: atenoloL 25 MG TAB PO SCH (09:40)
[2023-03-29] MEDS: TAMSULOSIN 0.4 MG CAP.ER.24H PO SCH (09:40)
[2023-03-29] MEDS: TORSEMIDE 20 MG TAB PO SCH (09:40)
[2023-03-29] MEDS: MAGNESIUM OXIDE 400 MG TAB PO SCH ×2 (09:40→21:24)
[2023-03-29] MEDS: CHOLECALCIFEROL 125 MCG (5000 IU) TABLET PO SCH (09:40)
[2023-03-29] MEDS: RIVAROXABAN 20 MG TAB PO SCH (09:41)
[2023-03-29] MEDS: ATORVASTATIN 40 MG TAB PO SCH (09:41)
[2023-03-29] MEDS: ASPIRIN 81 MG PO SCH (09:41)
[2023-03-29 10:12] LABS: Hepatitis B Surface AB- Quant 3.5 mIU/mL
--- NOTE | 2023-03-29 11:21 | P.PN ---
Subjective Patient is seen in follow-up for acute kidney injury, hemodialysis dependent. Urine output remains low. No problems with dialysis yesterday. Hemodynamically stable. No changes overnight. Vital signs are stable. General: No acute distress. HEENT: Head exam is unremarkable. On nasal cannula. LUNGS: Scattered rhonchi. HEART: Rate and Rhythm are regular. ABDOMEN: Nontender. EXTREMITITES: 2+ edema. Objective - Vital Signs Vital signs: Vital Signs Temp 97.8 F 03/29/23 07:07 Pulse 100 03/29/23 07:07 Resp 19 03/29/23 07:07 BP 117/69 03/29/23 07:07 Pulse Ox 99 03/29/23 07:07 FiO2 Intake & Output 03/28/23 03/29/23 03/29/23 18:59 06:59 18:59 Intake Total 600 Output Total 3800 Balance -3200 Intake: Hemodialysis 600 Output: Urine 100 Hemodialysis 3700 Other: Voiding Method Urinal # Bowel Movements 1 1 - Labs CBC & Chem 7: 03/27/23 06:31 03/29/23 07:58 Labs: Abnormal Lab Results - Last 24 Hours (Table) 03/28/23 03/28/23 03/28/23 Range/Units 11:26 16:26 20:39 Sodium (137-145) mmol/L Carbon Dioxide (22-30) mmol/L BUN (9-20) mg/dL Creatinine (0.66-1.25) mg/dL Glucose (74-99) mg/dL POC Glucose (mg/dL) 130 H 167 H 176 H (70-110) mg/dL Calcium (8.4-10.2) mg/dL 03/29/23 03/29/23 Range/Units 06:01 07:58 Sodium 133 L (137-145) mmol/L Carbon Dioxide 31 H (22-30) mmol/L BUN 25 H (9-20) mg/dL Creatinine 2.69 H (0.66-1.25) mg/dL Glucose 118 H (74-99) mg/dL POC Glucose (mg/dL) 141 H (70-110) mg/dL Calcium 7.5 L (8.4-10.2) mg/dL Assessment and Plan Plan: Assessment: 1. Acute kidney injury secondary to ATN secondary to cardiorenal syndrome, hypotension started on hemodialysis 02/25/2023. Baseline creatinine near 1 from September 2022. 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 No hydronephrosis noted on kidney ultrasound done 02/25/2023. 2. Acute on chronic diastolic CHF. 3. Volume overload. Improving with ultrafiltration. 4. Anemia. Iron deficiency noted - s/p IV iron. On Aranesp. 5. Group D enterococcus bacteremia. Likely urinary source. Urine culture positive for enterococcus. ID following. Also concern for permacath infection -status post removal and new catheter placed 03/24/2023. Plan: Hemodialysis tomorrow. He will be maintained on Thursday schedule outpatient. Phosphorus level 5.4 dated 03/13/2023. Monitor for renal recovery outpatient. Maintain torsemide. Monitor vancomycin levels. Dose to be adjusted for renal function.
[2023-03-29 11:32] LABS: Glucose,Whole Blood 123 mg/dL (70-110)
--- NOTE | 2023-03-29 15:47 | P.PN ---
Subjective Progress Note Date: 03/29/23 Principal diagnosis: Catheter associated UTI and bacteremia Patient is a 67-year-old male with a past medical history significant for type 2 diabetes mellitus hypertension hyperlipidemia atrial fibrillation with recent diagnosis of renal failure for the patient did have a dialysis catheter placement, presented to hospital with weakness patient noticed to have elevated white count positive UA concerning for catheter since UTI. Patient blood culture subsequently came back positive with Enterococcus. Patient did have removal of the palmar catheter on 03/20/2023, patient did have a new permacath placement on 03/24/2023. Patient is status post HERIBERTO completed 03/27/2023 that was negative for any vegetation. On today's evaluation that is 03/29/2023, the patient continues to be afebrile, the patient is breathing comfortably on 5 L nasal cannula oxygen , the patient denies having any chest pain denies any worsening cough or sputum production abdominal pain or diarrhea. Patient did have CBC done today, patient did have a creatinine of 2.69 Objective - Vital Signs Vital signs: Vital Signs Temp 97.6 F 03/29/23 14:04 Pulse 80 03/29/23 14:04 Resp 18 03/29/23 14:04 BP 116/55 03/29/23 14:04 Pulse Ox 98 03/29/23 14:04 FiO2 Intake & Output 03/28/23 03/29/23 03/29/23 18:59 06:59 18:59 Intake Total 600 500 Output Total 3800 150 Balance -3200 350 Intake: Intake, IV Titration 500 Amount Vancomycin 1,750 mg In 500 Sodium Chloride 0.9% 500 ml 500 ml @ 167 mls/hr IVPB ONCE ONE Rx#: [id number] Hemodialysis 600 Output: Urine 100 150 Hemodialysis 3700 Other: Voiding Method Urinal # Bowel Movements 1 1 - Exam GENERAL DESCRIPTION: An elderly male lying in bed in no distress RESPIRATORY SYSTEM: Unlabored breathing , decreased breath sounds at bases HEART: S1 S2 regular rate and rhythm , ABDOMEN: Soft , no tenderness EXTREMITIES: No edema feet - Labs CBC & Chem 7: 03/27/23 06:31 03/29/23 07:58 Labs: Abnormal Lab Results - Last 24 Hours (Table) 03/28/23 03/28/23 03/29/23 Range/Units 16:26 20:39 06:01 Sodium (137-145) mmol/L Carbon Dioxide (22-30) mmol/L BUN (9-20) mg/dL Creatinine (0.66-1.25) mg/dL Glucose (74-99) mg/dL POC Glucose (mg/dL) 167 H 176 H 141 H (70-110) mg/dL Calcium (8.4-10.2) mg/dL 03/29/23 03/29/23 Range/Units 07:58 11:29 Sodium 133 L (137-145) mmol/L Carbon Dioxide 31 H (22-30) mmol/L BUN 25 H (9-20) mg/dL Creatinine 2.69 H (0.66-1.25) mg/dL Glucose 118 H (74-99) mg/dL POC Glucose (mg/dL) 123 H (70-110) mg/dL Calcium 7.5 L (8.4-10.2) mg/dL Assessment and Plan (1) Bacteremia Current Visit: Yes Status: Acute Code(s): R78.81 - BACTEREMIA SNOMED Code(s): 6243273 (2) UTI (urinary tract infection) Current Visit: Yes Status: Acute Code(s): N39.0 - URINARY TRACT INFECTION, SITE NOT SPECIFIED SNOMED Code(s): 76679733 Plan: 1patient with Enterococcus faecalis bacteremia source possible urinary however underlying permacatheter infection not entirely excluded, Patient did have evidence of persistent bacteremia that is highly suspicious for line related infection 2-patient dialysis catheter was discontinued on 03/20/2023,Catheter tip has been negative so far blood culture repeat on 03/20/2023 as well as 03/21/2023, so far pending echocardiogram did not show any vegetation however it was a poor study 3-patient seemed to have cleared his bacteremia as a blood culture drawn on 03/20/2023 remains to be negative patient did got dialysis catheter on 03/24/2023 4the patient is status post HERIBERTO that was negative for any vegetation, 5-patient is slowly clinically improving and will continue patient on vancomycin pharmacy to dose through the dialysis to finish a 2-week course of therapy and monitor clinical course closely Dictation was produced using [employer] dictation software. please excuse any grammatical, word or spelling errors. Time with Patient: Less than 30
[2023-03-29 16:18] LABS: Glucose,Whole Blood 172 mg/dL (70-110)
[2023-03-29 21:12] LABS: Glucose,Whole Blood 148 mg/dL (70-110)
--- NOTE | 2023-03-30 00:42 | P.PN ---
Subjective Progress Note Date: 03/28/23 67-year-old male who was recently discharged from the hospital about 2 days ago after hospitalization for acute kidney injury volume overload and acute diastolic CHF and acute hypoxic respiratory failure. Patient was significantly volume overloaded and was started on hemodialysis. Urine output had improved however patient remains significantly volume overloaded and therefore hemodialysis was continued as outpatient. Patient did make it to his first outpatient treatment and stated that he felt quite weak when he went home and he has not been able to perform activities of daily living or to get out of bed. No complaints of new fever nausea vomiting abdominal pain or diarrhea. Shortness of breath not worse Patient continues to have significant swelling in the upper and lower extremities Patient has an indwelling Barkley catheter for urine retention. 03/15/2023 Patient is seen and evaluated sitting up in bedside chair Patient is admitted with acute kidney injury, hemodialysis dependent. Currently sitting up in chair. Urine output about 400 mL in 24 hours. Barkley catheter removed. No evidence of retention. -- On antibiotics for group D enterococcus bacteremia. in form of IV Cefepime and Vancomycin; ID on board; final culture and sensitivity is pending. 03/16/2023 Patient is seen and evaluated and follow-up currently receiving hemodialysis with nephrology and infectious disease following. Patient maintained on IV antibiotics awaiting repeat cultures and cultures from the right chest wall permacath with concerns of dialysis port infection. Patient is being treated for an acute urinary tract infection, present on admission most likely secondary to indwelling Barkley catheter. Barkley catheter has been removed and patient is voiding with no difficulties. Patient will likely receive ultrafiltration dialysis in the a.m. as well. Awaiting PT/OT therapy evaluation and patient will likely be going to [facility] once stabilized discharge. Patient is af ebrile with no reported chest pain or worsening shortness of breath. Patient continues on 4 L which he was sent home with previous admission secondary to managing his CHF. Patient denies nausea or vomiting and is tolerating diet. Patient reports the hospital food is not very appetizing. Will continue Accu- Cheks before meals and at bedtime 03/17/2023 Patient seen and evaluated in follow-up this morning continuing on dialysis with nephrology following closely. Hemoglobin was 6.9 today and will give 1 unit of PRBC follow-up with repeat labs in a.m. Patient remains on antibiotics with infectious disease following as well his blood cultures remained positive for enterococcus. Repeat blood cultures have been ordered again from the [facility] and awaiting finalized cultures. Patient denies chest pain or worsening shortness of breath. Patient continues on 5 L via nasal cannula. No reported nausea or vomiting patient is tolerating diet. Blood sugars are well-controlled at this time. Recommend PT/OT therapy daily as patient will be going to ECF once stabilized and discharged. 03/18/2023 Patient is seen in follow-up this morning just received dialysis and fatigued although arousable. is at bedside. Hemoglobin has improved to 8.8 after a unit of PRBC yesterday. Patient will likely receive dialysis again tomorrow and will follow-up with repeat labs. Cultures remain positive in multiple cultures have been received and pending from the [facility] site. Infectious disease following. Overall poor prognosis. Patient remains full code. Patient is afebrile denies chest pain or worsening shortness of breath. Patient continues on 5 L via nasal cannula. Blood sugars have been becoming more elevated will add sliding scale. 03/19/2023 Patient is seen in follow-up being followed by nephrology along with infectious disease and vascular surgery consulted and will be having dialysis catheter removed as there is concern for continued contamination with positive blood cultures. Blood cultures remain positive and some samples have been ordered specifically from [facility] although unsure if collected this way. Infectious disease along with nephrology both in agreement that dialysis catheter needs to be removed and patient will have dialysis today and then removed. Awaiting a.m. labs. Patient is continued on vancomycin and will continue for now. Patient is afebrile no reported worsening shortness of breath and denies chest pains. Patient tolerating diet and blood sugars will be continued to be monitored with Accu-Cheks before meals and at bedtime and sliding scale as needed. 03/20/2023 Patient is seen in follow-up this morning is awake and alert sitting up in the chair. Patient and report he was able to walk a few steps to the end of the couch with walker. Patient continues with significant weakness and will be going to rehab once cleared by consultations and would recommend PT/OT therapy daily. Patient did have right chest wall dialysis catheter removed today by vascular surgery and tip was sent for culture. Patient continues to be on vancomycin with infectious disease following and awaiting repeat cultures to finalized. Previous cultures have been still positive for enterococcus. Patient is afebrile and white count is 14 and hemoglobin is currently stable. Patient has no Barkley catheter and has been voiding. Patient denies any pain or burning with urinary frequency. Patient received dialysis yesterday and will not receive dialysis again until Thursday and nephrology is following closely. Follow-up labs ordered for a.m. 03/21/2023 Patient is evaluated today sitting up in the chair. He is being treated for enterococcus bacteremia and remains on IV antibiotics in the form of vancomycin. His most recent blood culture remains positive for enterococcus. He had his right IJ dialysis catheter removed with tip sent for culture. He additionally has a wound to his left mcdermott. Infectious disease is following closely as well as nephrology he is maintained on hemodialysis Thursday. Patient's main complaint is chronic pain for which we will recommend to increase his [place] to [place] 7.5 and recommend to discontinue the morphine due to his renal dysfunction. Labs today showing White Count 12.7, Hemoglobin 8.2, Sodium 1:30, Creatinine 3.78. 03/22/2023 Patient is evaluated today sitting up in the chair. He doesn't report much improvement in his pain although [place] has been increased up to [place] 7.5. Recommending to remain off of morphine at this time. Patient is a hemodialysis patient Thursday as scheduled next receive hemodialysis tomorrow or Thursday. 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 Preliminary culture from the permacath that was removed is negative so far. White count 12.0, hemoglobin 8.0, sodium 131, creatinine 4.23. 03/23/2023 Patient remains in the medical floor. Permacath was removed with tip culture pending pulmonary so far negative as well as repeat blood cultures are negative so far. Patient has had persistent enterococcus bacteremia and also had urine culture showing enterococcus. He remains on antibiotics in the form of IV Vancomycin. He is usually on a hemodialysis schedule Thursday however patient does not have a hemodialysis catheter in place and also has no AV fistula and plan is to tentatively receive a new dialysis catheter tomorrow Thursday at the earliest. Reports pain management has improved with the [place] 7.5. He remains on 5 L of oxygen with a saturation of 99%. Hemodynamically he is stable. 03/24/2023 Patient is seen this morning in follow-up and discussed with micro-lab about clearance of bacteremia and most recent blood cultures and catheter tip from [facility] have been negative for 72 hours. Infectious disease following and has cleared the patient for dialysis catheter placement today. Dr. Cano following and will be replacing and patient needs dialysis. Nephrology following and patient will have dialysis once the catheter is placed. Patient reporting increased shortness of breath most likely due to requiring dialysis as patient has not had since . Patient continues on IV antibiotics in the form of vancomycin with infectious disease following and will continue. Patient also to continue with local wound care and offloading to the sacral area and elevating lower extremities at rest. Patient continues on 6 L via nasal cannula and has been wearing 5 L chronically since last admission. Patient to work with physical therapy and is agreeable to rehab. Will discuss further with consultations about discharge planning once patient receives dialysis catheter. Patient is currently afebrile with no reported chest pain or palpitations. Patient is tolerating diet with no reported nausea or vomiting. 03/25/2023 Patient is seen in follow-up today status post receiving a dialysis catheter with vascular surgery and received dialysis late last night and again today. Plan is for removal of 2-3 L. Patient's blood pressure is extremely low and is being maintained on midodrine during dialysis. Patient is weak and tired today and awaiting a.m. labs. Potassium elevated and awaiting follow-up after dialysis. Patient continues with IV antibiotics in the form of vancomycin with infectious disease following. Patient will receive vancomycin with dialysis for the next 2 weeks and is planning on going to ECF. Patient has been accepted at [facility] and requiring insurance authorization. Case management is following and has submitted for authorization. Patient is afebrile denies chest pain. Continues to report shortness of breath and maintained on 5-6 L via nasal cannula. 03/26/2023 Patient is seen and evaluated in follow-up this morning lethargic although arousable. Patient did receive another dialysis catheter and received dialysis with possible further ultrafiltration today if not tomorrow morning. Patient continues to report shortness of breath and maintained on 5 L and maintaining oxygen saturations above 95% recommend a wean FiO2 as tolerated. Per nursing staff patient has been requesting to increase oxygen supply up to 6 L although is 98%. Patient likely needs repeat dialysis. Patient continues with significant overload and is being given a dose of Lasix again today per nephrology. Patient to continue with vancomycin with dialysis for 2 week course on discharge as repeat cultures have been negative and catheter tip culture was negative as well. This was discussed with infectious disease. Cardiology being consulted to discuss possible HERIBERTO to ensure no endocarditis. Will await cardiology input and recommendations. Patient is afebrile with no reported chest pain or palpitations. Patient tolerating diet with no reported nausea or vomiting. Patient continues to be significantly weak and has been somewhat agreeable to work with physical therapy on nondialysis days. Patient reports he is significantly more weak on the days he receives dialysis. 03/27/2023 Patient is seen in follow-up today and cardiology has been consulted for HERIBERTO which is tentatively scheduled for today. Patient to receive dialysis as well today with nephrology following closely. Patient also maintained on antibiotics in the form of vancomycin with infectious disease following closely. Infectious disease recommending HERIBERTO to ensure no abnormalities noted as patient had persistent bacteremia. Most recent blood culture from 03/21/2023 has been negative for 5 days. Patient's blood pressure has been slightly elevated today and patient does take atenolol daily. Will monitor as patient's blood pressures have been in the lower and requiring midodrine during dialysis. Patient with multiple medical consultations following along with physical therapy as patient continues with prolonged hospitalization and significant weakness and needs ECF for continued strength and mobility. Patient has had 2 prolonged hospi talizations over the last 2 months and prior to this patient was independent in ADLs and walking. Patient would benefit from ECF to build strength and mobility prior to returning home. Most recent hospitalization and discharge patient felt would be okay to go home although was unable to tolerate walking and was brought back to the ER via EMS. Patient continues to make urine without an indwelling Barkley catheter. Patient reports is having bowel movements and tolerating diet. Blood sugars have been well-controlled and will continue with Accu-Cheks before meals and at bedtime as well as sliding scale as needed. 03/28/2023 Patient is currently resting in the bed. Awake alert and oriented x3. Still feels very weak. Requiring oxygen at 6 L via nasal cannula. Leg swelling did improve. Patient underwent hemodialysis today. Urine output remains low. No complaints of chest pain or worsening shortness of breath. No nausea vomiting abdominal pain or diarrhea. Tolerating oral diet. Patient is on antibiotics for probable vancomycin. Repeat blood cultures since 03/20/2023 has been negative. Laboratory data showed creatinine 3.16. Blood sugars controlled. ID and nephrology on board. Current medications reviewed. Review of systems: Constitutional: reports of fatigue, no fever, or chills Cardiovascular: No reports of chest pain or palpitations Respiratory: reports of continued shortness of breath GI: No reports of nausea, vomiting, or diarrhea, reports having bowel movements : No reports of dysuria or retention, reports urinating with no difficulties Neurovascular: reports of generalized weakness All medications have been reviewed Physical exam: Gen: This is a 67-year-old male who is asleep although easily arousable , alert and oriented 3, well-developed, obese, ill-appearing, appears older than stated age HEENT: Head is atraumatic, normocephalic. Pupils equal, round. Sclerae is anicteric. NECK: Supple. No JVD. No lymphadenopathy. No thyromegaly. LUNGS: Diminished breath sounds bilaterally with some scattered rhonchi. No intercostal retractions. HEART: S1, S2 are muffled ABDOMEN: Soft. Obese. Bowel sounds are present. No masses. No tenderness. EXTREMITIES: pedal edema. No calf tenderness. Significant bilateral upper and lower extremity edema. Left lower extremity mcdermott with bullous pemphigus lesion noted NEUROLOGICAL: Patient is awake, alert and oriented x3. Cranial nerves 2 through 12 are grossly intact. Diffusely weak Assessment: Acute renal failure, nonoliguric, acute tubular necrosis secondary to cardiorenal syndrome and hypotension, recently started on dialysis on 02/25/2023 last admission Acute on chronic diastolic congestive heart failure, acute exacerbation Acute on chronic hypoxic respiratory failure, secondary to CHF exacerbation Acute urinary tract infection, present on admission, secondary to indwelling Barkley catheter growing enterococcus Features of sepsis, present on admission secondary to urinary tract infection with bacteremia Anemia, iron deficiency Pressure ulcers, stage II, bilateral buttocks, present on admission History of diabetes mellitus, type II, [id number] Group D enterococcus bacteremia possibly secondary to urinary tract infection also with concerns of possible dialysis catheter infection and cultures from dialysis catheter tip are negative 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 History of bullous pemphigus, has chronic left lower extremity wound GI prophylaxis DVT prophylaxis Full code Plan: -Patient continues on IV vancomycin for the enterococcus bacteremia repeat blood cultures have been negative for the last 72 hours and permacath culture tip was negative as well. Patient has been cleared by infectious disease and has received another dialysis catheter placed with Dr. Cano and is currently receiving dialysis today. -Case management following and will be submitted for insurance authorization as patient has been accepted at [facility]. Patient will continue on vancomycin with dialysis for 2 weeks on discharge -Infectious disease recommended cardiology consultation for HERIBERTO which was done today showing no vegetation with no endocarditis -Okay is maintained on Xarelto -continue renal diet with fluid restrictions. Continue Accu-Cheks before meals and at bedtime and sliding scale as needed -Patient has been voiding without a Barkley and will continue to monitor intake and output closely -Continue with PT/OT therapy daily. Patient was independent with ADLs prior to these hospitalizations and has had 2 prolonged hospitalization secondary to significant comorbidities requiring emergent dialysis and IV antibiotic therapy. Patient would benefit greatly at an ECF with continued PT/OT therapy for strengthening mobility prior to returning home. Patient was discharged on Lasix admission and went home and was too weak requiring immediate readmission to the hospital and was also found to have a UTI with bacteremia with concerns of permacath infection. Patient has had that cath removed and cultures were negative. Patient will continue on 2 weeks of vancomycin with dialysis and close outpatient follow-up with infectious disease. Insurance is requesting a peer to peer for evaluation and approval of going to ECF. Currently pending and scheduled for this afternoon on 03/27/2023. -Overall prognosis is poor and guarded Objective - Vital Signs Vital signs: Vital Signs Temp 98.2 F 03/28/23 20:00 Pulse 93 03/28/23 20:00 Resp 18 03/28/23 20:00 BP 107/54 03/28/23 20:00 Pulse Ox 97 03/28/23 20:00 FiO2 Intake & Output 03/28/23 03/28/23 03/29/23 06:59 18:59 06:59 Intake Total 480 600 Output Total 250 3700 Balance 230 -3100 Intake: Oral 480 Hemodialysis 600 Output: Urine 250 Hemodialysis 3700 Other: Voiding Method Urinal # Bowel Movements 1 - Labs CBC & Chem 7: 03/27/23 06:31 03/29/23 07:58 Labs: Abnormal Lab Results - Last 24 Hours (Table) 03/28/23 03/28/23 03/28/23 Range/Units 05:08 07:36 11:26 Creatinine 3.16 H (0.66-1.25) mg/dL POC Glucose (mg/dL) 135 H 130 H (70-110) mg/dL 03/28/23 03/28/23 Range/Units 16:26 20:39 Creatinine (0.66-1.25) mg/dL POC Glucose (mg/dL) 167 H 176 H (70-110) mg/dL
--- NOTE | 2023-03-30 00:44 | P.PN ---
Subjective Progress Note Date: 03/29/23 67-year-old male who was recently discharged from the hospital about 2 days ago after hospitalization for acute kidney injury volume overload and acute diastolic CHF and acute hypoxic respiratory failure. Patient was significantly volume overloaded and was started on hemodialysis. Urine output had improved however patient remains significantly volume overloaded and therefore hemodialysis was continued as outpatient. Patient did make it to his first outpatient treatment and stated that he felt quite weak when he went home and he has not been able to perform activities of daily living or to get out of bed. No complaints of new fever nausea vomiting abdominal pain or diarrhea. Shortness of breath not worse Patient continues to have significant swelling in the upper and lower extremities Patient has an indwelling Barkley catheter for urine retention. 03/15/2023 Patient is seen and evaluated sitting up in bedside chair Patient is admitted with acute kidney injury, hemodialysis dependent. Currently sitting up in chair. Urine output about 400 mL in 24 hours. Barkley catheter removed. No evidence of retention. -- On antibiotics for group D enterococcus bacteremia. in form of IV Cefepime and Vancomycin; ID on board; final culture and sensitivity is pending. 03/16/2023 Patient is seen and evaluated and follow-up currently receiving hemodialysis with nephrology and infectious disease following. Patient maintained on IV antibiotics awaiting repeat cultures and cultures from the right chest wall permacath with concerns of dialysis port infection. Patient is being treated for an acute urinary tract infection, present on admission most likely secondary to indwelling Barkley catheter. Barkley catheter has been removed and patient is voiding with no difficulties. Patient will likely receive ultrafiltration dialysis in the a.m. as well. Awaiting PT/OT therapy evaluation and patient will likely be going to [facility] once stabilized discharge. Patient is af ebrile with no reported chest pain or worsening shortness of breath. Patient continues on 4 L which he was sent home with previous admission secondary to managing his CHF. Patient denies nausea or vomiting and is tolerating diet. Patient reports the hospital food is not very appetizing. Will continue Accu- Cheks before meals and at bedtime 03/17/2023 Patient seen and evaluated in follow-up this morning continuing on dialysis with nephrology following closely. Hemoglobin was 6.9 today and will give 1 unit of PRBC follow-up with repeat labs in a.m. Patient remains on antibiotics with infectious disease following as well his blood cultures remained positive for enterococcus. Repeat blood cultures have been ordered again from the [facility] and awaiting finalized cultures. Patient denies chest pain or worsening shortness of breath. Patient continues on 5 L via nasal cannula. No reported nausea or vomiting patient is tolerating diet. Blood sugars are well-controlled at this time. Recommend PT/OT therapy daily as patient will be going to ECF once stabilized and discharged. 03/18/2023 Patient is seen in follow-up this morning just received dialysis and fatigued although arousable. is at bedside. Hemoglobin has improved to 8.8 after a unit of PRBC yesterday. Patient will likely receive dialysis again tomorrow and will follow-up with repeat labs. Cultures remain positive in multiple cultures have been received and pending from the [facility] site. Infectious disease following. Overall poor prognosis. Patient remains full code. Patient is afebrile denies chest pain or worsening shortness of breath. Patient continues on 5 L via nasal cannula. Blood sugars have been becoming more elevated will add sliding scale. 03/19/2023 Patient is seen in follow-up being followed by nephrology along with infectious disease and vascular surgery consulted and will be having dialysis catheter removed as there is concern for continued contamination with positive blood cultures. Blood cultures remain positive and some samples have been ordered specifically from [facility] although unsure if collected this way. Infectious disease along with nephrology both in agreement that dialysis catheter needs to be removed and patient will have dialysis today and then removed. Awaiting a.m. labs. Patient is continued on vancomycin and will continue for now. Patient is afebrile no reported worsening shortness of breath and denies chest pains. Patient tolerating diet and blood sugars will be continued to be monitored with Accu-Cheks before meals and at bedtime and sliding scale as needed. 03/20/2023 Patient is seen in follow-up this morning is awake and alert sitting up in the chair. Patient and report he was able to walk a few steps to the end of the couch with walker. Patient continues with significant weakness and will be going to rehab once cleared by consultations and would recommend PT/OT therapy daily. Patient did have right chest wall dialysis catheter removed today by vascular surgery and tip was sent for culture. Patient continues to be on vancomycin with infectious disease following and awaiting repeat cultures to finalized. Previous cultures have been still positive for enterococcus. Patient is afebrile and white count is 14 and hemoglobin is currently stable. Patient has no Barkley catheter and has been voiding. Patient denies any pain or burning with urinary frequency. Patient received dialysis yesterday and will not receive dialysis again until Thursday and nephrology is following closely. Follow-up labs ordered for a.m. 03/21/2023 Patient is evaluated today sitting up in the chair. He is being treated for enterococcus bacteremia and remains on IV antibiotics in the form of vancomycin. His most recent blood culture remains positive for enterococcus. He had his right IJ dialysis catheter removed with tip sent for culture. He additionally has a wound to his left mcdermott. Infectious disease is following closely as well as nephrology he is maintained on hemodialysis Thursday. Patient's main complaint is chronic pain for which we will recommend to increase his Munich to Munich 7.5 and recommend to discontinue the morphine due to his renal dysfunction. Labs today showing White Count 12.7, Hemoglobin 8.2, Sodium 1:30, Creatinine 3.78. 03/22/2023 Patient is evaluated today sitting up in the chair. He doesn't report much improvement in his pain although Munich has been increased up to Munich 7.5. Recommending to remain off of morphine at this time. Patient is a hemodialysis patient Thursday as scheduled next receive hemodialysis tomorrow or Thursday. 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 Preliminary culture from the permacath that was removed is negative so far. White count 12.0, hemoglobin 8.0, sodium 131, creatinine 4.23. 03/23/2023 Patient remains in the medical floor. Permacath was removed with tip culture pending pulmonary so far negative as well as repeat blood cultures are negative so far. Patient has had persistent enterococcus bacteremia and also had urine culture showing enterococcus. He remains on antibiotics in the form of IV Vancomycin. He is usually on a hemodialysis schedule Thursday however patient does not have a hemodialysis catheter in place and also has no AV fistula and plan is to tentatively receive a new dialysis catheter tomorrow Thursday at the earliest. Reports pain management has improved with the Munich 7.5. He remains on 5 L of oxygen with a saturation of 99%. Hemodynamically he is stable. 03/24/2023 Patient is seen this morning in follow-up and discussed with micro-lab about clearance of bacteremia and most recent blood cultures and catheter tip from [facility] have been negative for 72 hours. Infectious disease following and has cleared the patient for dialysis catheter placement today. Dr. Cano following and will be replacing and patient needs dialysis. Nephrology following and patient will have dialysis once the catheter is placed. Patient reporting increased shortness of breath most likely due to requiring dialysis as patient has not had since . Patient continues on IV antibiotics in the form of vancomycin with infectious disease following and will continue. Patient also to continue with local wound care and offloading to the sacral area and elevating lower extremities at rest. Patient continues on 6 L via nasal cannula and has been wearing 5 L chronically since last admission. Patient to work with physical therapy and is agreeable to rehab. Will discuss further with consultations about discharge planning once patient receives dialysis catheter. Patient is currently afebrile with no reported chest pain or palpitations. Patient is tolerating diet with no reported nausea or vomiting. 03/25/2023 Patient is seen in follow-up today status post receiving a dialysis catheter with vascular surgery and received dialysis late last night and again today. Plan is for removal of 2-3 L. Patient's blood pressure is extremely low and is being maintained on midodrine during dialysis. Patient is weak and tired today and awaiting a.m. labs. Potassium elevated and awaiting follow-up after dialysis. Patient continues with IV antibiotics in the form of vancomycin with infectious disease following. Patient will receive vancomycin with dialysis for the next 2 weeks and is planning on going to ECF. Patient has been accepted at [facility] and requiring insurance authorization. Case management is following and has submitted for authorization. Patient is afebrile denies chest pain. Continues to report shortness of breath and maintained on 5-6 L via nasal cannula. 03/26/2023 Patient is seen and evaluated in follow-up this morning lethargic although arousable. Patient did receive another dialysis catheter and received dialysis with possible further ultrafiltration today if not tomorrow morning. Patient continues to report shortness of breath and maintained on 5 L and maintaining oxygen saturations above 95% recommend a wean FiO2 as tolerated. Per nursing staff patient has been requesting to increase oxygen supply up to 6 L although is 98%. Patient likely needs repeat dialysis. Patient continues with significant overload and is being given a dose of Lasix again today per nephrology. Patient to continue with vancomycin with dialysis for 2 week course on discharge as repeat cultures have been negative and catheter tip culture was negative as well. This was discussed with infectious disease. Cardiology being consulted to discuss possible HERIBERTO to ensure no endocarditis. Will await cardiology input and recommendations. Patient is afebrile with no reported chest pain or palpitations. Patient tolerating diet with no reported nausea or vomiting. Patient continues to be significantly weak and has been somewhat agreeable to work with physical therapy on nondialysis days. Patient reports he is significantly more weak on the days he receives dialysis. 03/27/2023 Patient is seen in follow-up today and cardiology has been consulted for HERIBERTO which is tentatively scheduled for today. Patient to receive dialysis as well today with nephrology following closely. Patient also maintained on antibiotics in the form of vancomycin with infectious disease following closely. Infectious disease recommending HERIBERTO to ensure no abnormalities noted as patient had persistent bacteremia. Most recent blood culture from 03/21/2023 has been negative for 5 days. Patient's blood pressure has been slightly elevated today and patient does take atenolol daily. Will monitor as patient's blood pressures have been in the lower and requiring midodrine during dialysis. Patient with multiple medical consultations following along with physical therapy as patient continues with prolonged hospitalization and significant weakness and needs ECF for continued strength and mobility. Patient has had 2 prolonged hospi talizations over the last 2 months and prior to this patient was independent in ADLs and walking. Patient would benefit from ECF to build strength and mobility prior to returning home. Most recent hospitalization and discharge patient felt would be okay to go home although was unable to tolerate walking and was brought back to the ER via EMS. Patient continues to make urine without an indwelling Barkley catheter. Patient reports is having bowel movements and tolerating diet. Blood sugars have been well-controlled and will continue with Accu-Cheks before meals and at bedtime as well as sliding scale as needed. 03/28/2023 Patient is currently resting in the bed. Awake alert and oriented x3. Still feels very weak. Requiring oxygen at 6 L via nasal cannula. Leg swelling did improve. Patient underwent hemodialysis today. Urine output remains low. No complaints of chest pain or worsening shortness of breath. No nausea vomiting abdominal pain or diarrhea. Tolerating oral diet. Patient is on antibiotics for probable vancomycin. Repeat blood cultures since 03/20/2023 has been negative. Laboratory data showed creatinine 3.16. Blood sugars controlled. ID and nephrology on board. 03/29/2023 patient is currently lying in the bed. Awake alert and oriented x3. Requiring oxygen at 5 L via nasal cannula. Patient underwent hemodialysis today. Was able to stand with support. PT OT to follow-up. No complaints of chest pain. No nausea vomiting abdominal pain or diarrhea. Tolerating oral diet. Level data showed sodium 133 potassium 4.0 chloride 101 bicarb is 31 BUN 25 creatinine 2.69. Calcium 7.5. Nephrology and ID is on board. Patient remains on antibiotics in the form of vancomycin for Enterococcus faecalis bacteremia.. Current medications reviewed. Review of systems: Constitutional: reports of fatigue, no fever, or chills Cardiovascular: No reports of chest pain or palpitations Respiratory: reports of continued shortness of breath GI: No reports of nausea, vomiting, or diarrhea, reports having bowel movements : No reports of dysuria or retention, reports urinating with no difficulties Neurovascular: reports of generalized weakness All medications have been reviewed Physical exam: Gen: This is a 67-year-old male who is asleep although easily arousable , alert and oriented 3, well-developed, obese, ill-appearing, appears older than stated age HEENT: Head is atraumatic, normocephalic. Pupils equal, round. Sclerae is anicteric. NECK: Supple. No JVD. No lymphadenopathy. No thyromegaly. LUNGS: Diminished breath sounds bilaterally with some scattered rhonchi. No intercostal retractions. HEART: S1, S2 are muffled ABDOMEN: Soft. Obese. Bowel sounds are present. No masses. No tenderness. EXTREMITIES: pedal edema. No calf tenderness. Significant bilateral upper and lower extremity edema. Left lower extremity mcdermott with bullous pemphigus lesion noted NEUROLOGICAL: Patient is awake, alert and oriented x3. Cranial nerves 2 through 12 are grossly intact. Diffusely weak Assessment: Acute renal failure, nonoliguric, acute tubular necrosis secondary to cardiorenal syndrome and hypotension, recently started on dialysis on 02/25/2023 last admission Acute on chronic diastolic congestive heart failure, acute exacerbation Acute on chronic hypoxic respiratory failure, secondary to CHF exacerbation Acute urinary tract infection, present on admission, secondary to indwelling Barkley catheter growing enterococcus Features of sepsis, present on admission secondary to urinary tract infection with bacteremia Anemia, iron deficiency Pressure ulcers, stage II, bilateral buttocks, present on admission History of diabetes mellitus, type II, had-[id number] Group D enterococcus bacteremia possibly secondary to urinary tract infection also with concerns of possible dialysis catheter infection and cultures from dialysis catheter tip are negative 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 History of bullous pemphigus, has chronic left lower extremity wound GI prophylaxis DVT prophylaxis Full code Plan: -Patient continues on IV vancomycin for the enterococcus bacteremia repeat blood cultures have been negative for the last 72 hours and permacath culture tip was negative as well. Patient has been cleared by infectious disease and has received another dialysis catheter placed with Dr. Cano and is currently receiving dialysis today. -Case management following and will be submitted for insurance authorization as patient has been accepted at [facility]. Patient will continue on vancomycin with dialysis for 2 weeks on discharge -Infectious disease recommended cardiology consultation for HERIBERTO which was done today showing no vegetation with no endocarditis -Okay is maintained on Xarelto -continue renal diet with fluid restrictions. Continue Accu-Cheks before meals and at bedtime and sliding scale as needed -Patient has been voiding without a Barkley and will continue to monitor intake and output closely -Continue with PT/OT therapy daily. Patient was independent with ADLs prior to these hospitalizations and has had 2 prolonged hospitalization secondary to significant comorbidities requiring emergent dialysis and IV antibiotic therapy. Patient would benefit greatly at an ECF with continued PT/OT therapy for strengthening mobility prior to returning home. Patient was discharged on Lasix admission and went home and was too weak requiring immediate readmission to the hospital and was also found to have a UTI with bacteremia with concerns of permacath infection. Patient has had that cath removed and cultures were negative. Patient will continue on 2 weeks of vancomycin with dialysis and close outpatient follow-up with infectious disease. Insurance is requesting a peer to peer for evaluation and approval of going to ECF. Currently pending and scheduled for this afternoon on 03/27/2023. -Overall prognosis is poor and guarded Objective - Vital Signs Vital signs: Vital Signs Temp 97.6 F 03/29/23 14:04 Pulse 82 03/29/23 17:13 Resp 18 03/29/23 14:04 BP 119/68 03/29/23 17:13 Pulse Ox 98 03/29/23 14:04 FiO2 Intake & Output 03/29/23 03/29/23 03/30/23 06:59 18:59 06:59 Intake Total 600 500 Output Total 3800 500 Balance -3200 0 Intake: Intake, IV Titration 500 Amount Vancomycin 1,750 mg In 500 Sodium Chloride 0.9% 500 ml 500 ml @ 167 mls/hr IVPB ONCE ONE Rx#: [id number] Hemodialysis 600 Output: Urine 100 500 Hemodialysis 3700 Other: Voiding Method Urinal # Bowel Movements 1 - Labs CBC & Chem 7: 03/27/23 06:31 03/29/23 07:58 Labs: Abnormal Lab Results - Last 24 Hours (Table) 03/28/23 03/29/23 03/29/23 Range/Units 20:39 06:01 07:58 Sodium 133 L (137-145) mmol/L Carbon Dioxide 31 H (22-30) mmol/L BUN 25 H (9-20) mg/dL Creatinine 2.69 H (0.66-1.25) mg/dL Glucose 118 H (74-99) mg/dL POC Glucose (mg/dL) 176 H 141 H (70-110) mg/dL Calcium 7.5 L (8.4-10.2) mg/dL 03/29/23 03/29/23 Range/Units 11:29 16:16 Sodium (137-145) mmol/L Carbon Dioxide (22-30) mmol/L BUN (9-20) mg/dL Creatinine (0.66-1.25) mg/dL Glucose (74-99) mg/dL POC Glucose (mg/dL) 123 H 172 H (70-110) mg/dL Calcium (8.4-10.2) mg/dL
[2023-03-30] MEDS: HYDROcodone/APAP 7.5-325MG 1 EACH TAB PO PRN ×5 (03:21→20:36)
[2023-03-30 06:10] LABS: Glucose,Whole Blood 117 mg/dL (70-110)
[2023-03-30] MEDS: INSULIN ASPART (NovoLOG) 100 UNIT/ML VIAL SQ SCH ×4 (06:10→20:57)
[2023-03-30] MEDS: atenoloL 25 MG TAB PO SCH (07:01)
[2023-03-30] MEDS: MIDODRINE 5 MG TAB PO SCH ×3 (07:03→16:59)
[2023-03-30] MEDS: ATORVASTATIN 40 MG TAB PO SCH (08:47)
[2023-03-30] MEDS: CHOLECALCIFEROL 125 MCG (5000 IU) TABLET PO SCH (08:47)
[2023-03-30] MEDS: ASPIRIN 81 MG PO SCH (08:47)
[2023-03-30] MEDS: MAGNESIUM OXIDE 400 MG TAB PO SCH ×2 (08:47→20:36)
[2023-03-30] MEDS: RIVAROXABAN 20 MG TAB PO SCH (08:47)
[2023-03-30] MEDS: TORSEMIDE 20 MG TAB PO SCH (08:47)
[2023-03-30] MEDS: THIAMINE 100 MG TAB PO SCH (08:48)
[2023-03-30] MEDS: TAMSULOSIN 0.4 MG CAP.ER.24H PO SCH (08:48)
[2023-03-30 10:01] LABS: BUN/Creat Ratio 8.44 Ratio (12.00-20.00); Blood Urea Nitrogen 28.7 mg/dL (9.0-27.0); Calcium 7.8 mg/dL (8.7-10.3); Carbon Dioxide 24.2 mmol/L (21.6-31.8); Chloride 101 mmol/L (96-109); Glucose 119 mg/dL (70-110); Phosphorus 5.5 mg/dL (2.4-5.1); Sodium 137 mmol/L (135-145)
--- NOTE | 2023-03-30 11:03 | P.PN ---
Subjective Patient is seen in follow-up for acute kidney injury, hemodialysis dependent. Tolerating dialysis well. Hemodynamically stable. No changes overnight. Vital signs are stable. General: No acute distress. HEENT: Head exam is unremarkable. On nasal cannula. LUNGS: Scattered rhonchi. HEART: Rate and Rhythm are regular. ABDOMEN: Nontender. EXTREMITITES: 2+ edema. Objective - Vital Signs Vital signs: Vital Signs Temp 98.7 F 03/30/23 06:45 Pulse 86 03/30/23 06:45 Resp 18 03/30/23 06:45 BP 145/80 03/30/23 06:45 Pulse Ox 96 03/30/23 08:14 FiO2 Intake & Output 03/29/23 03/30/23 03/30/23 18:59 06:59 18:59 Intake Total 500 Output Total 500 350 Balance 0 -350 Intake: Intake, IV Titration 500 Amount Vancomycin 1,750 mg In 500 Sodium Chloride 0.9% 500 ml 500 ml @ 167 mls/hr IVPB ONCE ONE Rx#: [id number] Output: Urine 500 350 Other: Voiding Method Urinal - Labs CBC & Chem 7: 03/27/23 06:31 03/30/23 06:12 Labs: Abnormal Lab Results - Last 24 Hours (Table) 03/29/23 03/29/23 03/29/23 Range/Units 11:29 16:16 21:11 BUN (9.0-27.0) mg/dL Creatinine (0.6-1.5) mg/dL Est GFR (CKD-EPI) (>=60) BUN/Creatinine Ratio (12.00-20.00) Ratio Glucose (70-110) mg/dL POC Glucose (mg/dL) 123 H 172 H 148 H (70-110) mg/dL Calcium (8.7-10.3) mg/dL Phosphorus (2.4-5.1) mg/dL 03/30/23 03/30/23 Range/Units 06:09 06:12 BUN 28.7 H (9.0-27.0) mg/dL Creatinine 3.4 H (0.6-1.5) mg/dL Est GFR (CKD-EPI) 19 L (>=60) BUN/Creatinine Ratio 8.44 L (12.00-20.00) Ratio Glucose 119 H (70-110) mg/dL POC Glucose (mg/dL) 117 H (70-110) mg/dL Calcium 7.8 L (8.7-10.3) mg/dL Phosphorus 5.5 H (2.4-5.1) mg/dL Assessment and Plan Plan: Assessment: 1. Acute kidney injury secondary to ATN secondary to cardiorenal syndrome, hypotension started on hemodialysis 02/25/2023. Baseline creatinine near 1 from September 2022. 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 No hydronephrosis noted on kidney ultrasound done 02/25/2023. 2. Acute on chronic diastolic CHF. 3. Volume overload. Improving with ultrafiltration. 4. Anemia. Iron deficiency noted - s/p IV iron. On Aranesp. 5. Group D enterococcus bacteremia. Likely urinary source. Urine culture positive for enterococcus. ID following. Also concern for permacath infection -status post removal and new catheter placed 03/24/2023. Plan: Currently seen while undergoing hemodialysis. He will be maintained on Thursday schedule outpatient. Phosphorus level 5.4 dated 03/13/2023. Monitor for renal recovery outpatient. Maintain torsemide. Monitor vancomycin levels. Dose to be adjusted for renal function.
[2023-03-30 11:12] LABS: Glucose,Whole Blood 151 mg/dL (70-110)
[2023-03-30 16:20] LABS: Glucose,Whole Blood 192 mg/dL (70-110)
[2023-03-30 19:54] LABS: Glucose,Whole Blood 180 mg/dL (70-110)
[2023-03-31] MEDS: HYDROcodone/APAP 7.5-325MG 1 EACH TAB PO PRN ×5 (00:57→15:49)
[2023-03-31 05:47] LABS: Glucose,Whole Blood 123 mg/dL (70-110)
--- NOTE | 2023-03-31 05:52 | P.PN ---
Subjective Progress Note Date: 03/30/23 67-year-old male who was recently discharged from the hospital about 2 days ago after hospitalization for acute kidney injury volume overload and acute diastolic CHF and acute hypoxic respiratory failure. Patient was significantly volume overloaded and was started on hemodialysis. Urine output had improved however patient remains significantly volume overloaded and therefore hemodialysis was continued as outpatient. Patient did make it to his first outpatient treatment and stated that he felt quite weak when he went home and he has not been able to perform activities of daily living or to get out of bed. No complaints of new fever nausea vomiting abdominal pain or diarrhea. Shortness of breath not worse Patient continues to have significant swelling in the upper and lower extremities Patient has an indwelling Barkley catheter for urine retention. 03/15/2023 Patient is seen and evaluated sitting up in bedside chair Patient is admitted with acute kidney injury, hemodialysis dependent. Currently sitting up in chair. Urine output about 400 mL in 24 hours. Barkley catheter removed. No evidence of retention. -- On antibiotics for group D enterococcus bacteremia. in form of IV Cefepime and Vancomycin; ID on board; final culture and sensitivity is pending. 03/16/2023 Patient is seen and evaluated and follow-up currently receiving hemodialysis with nephrology and infectious disease following. Patient maintained on IV antibiotics awaiting repeat cultures and cultures from the right chest wall permacath with concerns of dialysis port infection. Patient is being treated for an acute urinary tract infection, present on admission most likely secondary to indwelling Barkley catheter. Barkley catheter has been removed and patient is voiding with no difficulties. Patient will likely receive ultrafiltration dialysis in the a.m. as well. Awaiting PT/OT therapy evaluation and patient will likely be going to [facility] once stabilized discharge. Patient is afebrile with no reported chest pain or worsening shortness of breath. Patient continues on 4 L which he was sent home with previous admission secondary to managing his CHF. Patient denies nausea or vomiting and is tolerating diet. Patient reports the hospital food is not very appetizing. Will continue Accu- Cheks before meals and at bedtime 03/17/2023 Patient seen and evaluated in follow-up this morning continuing on dialysis with nephrology following closely. Hemoglobin was 6.9 today and will give 1 unit of PRBC follow-up with repeat labs in a.m. Patient remains on antibiotics with in fectious disease following as well his blood cultures remained positive for enterococcus. Repeat blood cultures have been ordered again from the [facility] and awaiting finalized cultures. Patient denies chest pain or worsening shortness of breath. Patient continues on 5 L via nasal cannula. No reported nausea or vomiting patient is tolerating diet. Blood sugars are well-controlled at this time. Recommend PT/OT therapy daily as patient will be going to ECF once stabilized and discharged. 03/18/2023 Patient is seen in follow-up this morning just received dialysis and fatigued although arousable. is at bedside. Hemoglobin has improved to 8.8 after a unit of PRBC yesterday. Patient will likely receive dialysis again tomorrow and will follow-up with repeat labs. Cultures remain positive in multiple cultures have been received and pending from the [facility] site. Infectious disease following. Overall poor prognosis. Patient remains full code. Patient is afebrile denies chest pain or worsening shortness of breath. Patient continues on 5 L via nasal cannula. Blood sugars have been becoming more elevated will add sliding scale. 03/19/2023 Patient is seen in follow-up being followed by nephrology along with infectious disease and vascular surgery consulted and will be having dialysis catheter removed as there is concern for continued contamination with positive blood cultures. Blood cultures remain positive and some samples have been ordered specifically from [facility] although unsure if collected this way. Infectious disease along with nephrology both in agreement that dialysis catheter needs to be removed and patient will have dialysis today and then removed. Awaiting a.m. labs. Patient is continued on vancomycin and will continue for now. Patient is afebrile no reported worsening shortness of breath and denies chest pains. Patient tolerating diet and blood sugars will be continued to be monitored with Accu-Cheks before meals and at bedtime and sliding scale as needed. 03/20/2023 Patient is seen in follow-up this morning is awake and alert sitting up in the chair. Patient and report he was able to walk a few steps to the end of the couch with walker. Patient continues with significant weakness and will be going to rehab once cleared by consultations and would recommend PT/OT therapy daily. Patient did have right chest wall dialysis catheter removed today by vascular surgery and tip was sent for culture. Patient continues to be on vancomycin with infectious disease following and awaiting repeat cultures to finalized. Previous cultures have been still positive for enterococcus. Patient is afebrile and white count is 14 and hemoglobin is currently stable. Patient has no Barkley catheter and has been voiding. Patient denies any pain or burning with urinary frequency. Patient received dialysis yesterday and will not receive dialysis again until Thursday and nephrology is following closely. Follow-up labs ordered for a.m. 03/21/2023 Patient is evaluated today sitting up in the chair. He is being treated for enterococcus bacteremia and remains on IV antibiotics in the form of vancomycin. His most recent blood culture remains positive for enterococcus. He had his right IJ dialysis catheter removed with tip sent for culture. He additionally has a wound to his left mcdermott. Infectious disease is following closely as well as nephrology he is maintained on hemodialysis Thursday. Patient's main complaint is chronic pain for which we will recommend to increase his Blanding to Blanding 7.5 and recommend to discontinue the morphine due to his renal dysfunction. Labs today showing White Count 12.7, Hemoglobin 8.2, Sodium 1:30, Creatinine 3.78. 03/22/2023 Patient is evaluated today sitting up in the chair. He doesn't report much improvement in his pain although Blanding has been increased up to Blanding 7.5. Recommending to remain off of morphine at this time. Patient is a hemodialysis patient Thursday as scheduled next receive hemodialysis tomorrow or Thursday. 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 Preliminary culture from the permacath that was removed is negative so far. White count 12.0, hemoglobin 8.0, sodium 131, creatinine 4.23. 03/23/2023 Patient remains in the medical floor. Permacath was removed with tip culture pending pulmonary so far negative as well as repeat blood cultures are negative so far. Patient has had persistent enterococcus bacteremia and also had urine culture showing enterococcus. He remains on antibiotics in the form of IV Vancomycin. He is usually on a hemodialysis schedule Thursday however patient does not have a hemodialysis catheter in place and also has no AV fistula and plan is to tentatively receive a new dialysis catheter tomorrow Thursday at the earliest. Reports pain management has improved with the Blanding 7.5. He remains on 5 L of oxygen with a saturation of 99%. Hemodynamically he is stable. 03/24/2023 Patient is seen this morning in follow-up and discussed with micro-lab about clearance of bacteremia and most recent blood cultures and catheter tip from [facility] have been negative for 72 hours. Infectious disease following and has cleared the patient for dialysis catheter placement today. Dr. Cano following and will be replacing and patient needs dialysis. Nephrology following and patient will have dialysis once the catheter is placed. Patient reporting increased shortness of breath most likely due to requiring dialysis as patient has not had since . Patient continues on IV antibiotics in the form of vancomycin with infectious disease following and will continue. Patient also to continue with local wound care and offloading to the sacral area and elevating lower extremities at rest. Patient continues on 6 L via nasal cannula and has been wearing 5 L chronically since last admission. Patient to work with physical therapy and is agreeable to rehab. Will discuss further with consultations about discharge planning once patient receives dialysis catheter. Patient is currently afebrile with no reported chest pain or palpitations. Maya ent is tolerating diet with no reported nausea or vomiting. 03/25/2023 Patient is seen in follow-up today status post receiving a dialysis catheter with vascular surgery and received dialysis late last night and again today. Plan is for removal of 2-3 L. Patient's blood pressure is extremely low and is being maintained on midodrine during dialysis. Patient is weak and tired today and awaiting a.m. labs. Potassium elevated and awaiting follow-up after dialysis. Patient continues with IV antibiotics in the form of vancomycin with infectious disease following. Patient will receive vancomycin with dialysis for the next 2 weeks and is planning on going to ECF. Patient has been accepted at [facility] and requiring insurance authorization. Case management is following and has submitted for authorization. Patient is afebrile denies chest pain. Continues to report shortness of breath and maintained on 5-6 L via nasal cannula. 03/26/2023 Patient is seen and evaluated in follow-up this morning lethargic although arousable. Patient did receive another dialysis catheter and received dialysis with possible further ultrafiltration today if not tomorrow morning. Patient continues to report shortness of breath and maintained on 5 L and maintaining oxygen saturations above 95% recommend a wean FiO2 as tolerated. Per nursing staff patient has been requesting to increase oxygen supply up to 6 L although is 98%. Patient likely needs repeat dialysis. Patient continues with signific ant overload and is being given a dose of Lasix again today per nephrology. Patient to continue with vancomycin with dialysis for 2 week course on discharge as repeat cultures have been negative and catheter tip culture was negative as well. This was discussed with infectious disease. Cardiology being consulted to discuss possible HERIBERTO to ensure no endocarditis. Will await cardiology input and recommendations. Patient is afebrile with no reported chest pain or palpitations. Patient tolerating diet with no reported nausea or vomiting. Patient continues to be significantly weak and has been somewhat agreeable to work with physical therapy on nondialysis days. Patient reports he is signi ficantly more weak on the days he receives dialysis. 03/27/2023 Patient is seen in follow-up today and cardiology has been consulted for HERIBERTO which is tentatively scheduled for today. Patient to receive dialysis as well today with nephrology following closely. Patient also maintained on antibiotics in the form of vancomycin with infectious disease following closely. Infectious disease recommending HERIBERTO to ensure no abnormalities noted as patient had persistent bacteremia. Most recent blood culture from 03/21/2023 has been negative for 5 days. Patient's blood pressure has been slightly elevated today and patient does take atenolol daily. Will monitor as patient's blood pressures have been in the lower and requiring midodrine during dialysis. Patient with multiple medical consultations following along with physical therapy as patient continues with prolonged hospitalization and significant weakness and needs ECF for continued strength and mobility. Patient has had 2 prolonged hos pitalizations over the last 2 months and prior to this patient was independent in ADLs and walking. Patient would benefit from ECF to build strength and mobility prior to returning home. Most recent hospitalization and discharge patient felt would be okay to go home although was unable to tolerate walking and was brought back to the ER via EMS. Patient continues to make urine without an indwelling Barkley catheter. Patient reports is having bowel movements and tolerating diet. Blood sugars have been well-controlled and will continue with Accu-Cheks before meals and at bedtime as well as sliding scale as needed. 03/28/2023 Patient is currently resting in the bed. Awake alert and oriented x3. Still feels very weak. Requiring oxygen at 6 L via nasal cannula. Leg swelling did improve. Patient underwent hemodialysis today. Urine output remains low. No complaints of chest pain or worsening shortness of breath. No nausea vomiting abdominal pain or diarrhea. Tolerating oral diet. Patient is on antibiotics for probable vancomycin. Repeat blood cultures since 03/20/2023 has been negative. Laboratory data showed creatinine 3.16. Blood sugars controlled. ID and nephrology on board. 03/29/2023 patient is currently lying in the bed. Awake alert and oriented x3. Requiring oxygen at 5 L via nasal cannula. Patient underwent hemodialysis today. Was able to stand with support. PT OT to follow-up. No complaints of chest pain. No nausea vomiting abdominal pain or diarrhea. Tolerating oral diet. Level data showed sodium 133 potassium 4.0 chloride 101 bicarb is 31 BUN 25 creatinine 2.69. Calcium 7.5. Nephrology and ID is on board. Patient remains on antibiotics in the form of vancomycin for Enterococcus faecalis bacteremia.. 03/30/2023 Patient is seen and evaluated in follow-up today lethargic although arousable. Patient scheduled to receive dialysis today with nephrology following closely. Patient continues with significant weakness was approved by insurance for ECF and will discuss further with case management/social work about discharge planning as patient has been accepted at [facility]. Patient with significant comorbidities and overall prognosis remains guarded. Patient continues to report shortness of breath and is having oxygen saturations of 98% on 5-6 L. Wean FiO2 as tolerated. Patient also continued on sliding scale with Accu-Cheks before meals and at bedtime for diabetic diet. Patient to continue with low potassium renal diet and fluid restrictions. Review of systems: Constitutional: reports of fatigue, no fever, or chills Cardiovascular: No reports of chest pain or palpitations Respiratory: reports of continued shortness of breath GI: No reports of nausea, vomiting, or diarrhea, reports having bowel movements : No reports of dysuria or retention, reports urinating with no difficulties Neurovascular: reports of generalized weakness All medications have been reviewed Physical exam: Gen: This is a 67-year-old male who is asleep although easily arousable , alert and oriented 3, well-developed, obese, ill-appearing, appears older than stated age HEENT: Head is atraumatic, normocephalic. Pupils equal, round. Sclerae is a nicteric. NECK: Supple. No JVD. No lymphadenopathy. No thyromegaly. LUNGS: Diminished breath sounds bilaterally with some scattered rhonchi. No intercostal retractions. HEART: S1, S2 are muffled ABDOMEN: Soft. Obese. Bowel sounds are present. No masses. No tenderness. EXTREMITIES: pedal edema. No calf tenderness. Significant bilateral upper and lower extremity edema. Left lower extremity mcdermott with bullous pemphigus lesion noted NEUROLOGICAL: Patient is awake, alert and oriented x3. Cranial nerves 2 through 12 are grossly intact. Diffusely weak Assessment: Acute renal failure, nonoliguric, acute tubular necrosis secondary to cardiorenal syndrome and hypotension, recently started on dialysis on 02/25/2023 last admission Acute on chronic diastolic congestive heart failure, acute exacerbation Acute on chronic hypoxic respiratory failure, secondary to CHF exacerbation Acute urinary tract infection, present on admission, secondary to indwelling Barkley catheter growing enterococcus Features of sepsis, present on admission secondary to urinary tract infection with bacteremia Anemia, iron deficiency Pressure ulcers, stage II, bilateral buttocks, present on admission History of diabetes mellitus, type II, [id number] Group D enterococcus bacteremia possibly secondary to urinary tract infection also with concerns of possible dialysis catheter infection and cultures from dialysis catheter tip are negative 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 History of bullous pemphigus, has chronic left lower extremity wound GI prophylaxis DVT prophylaxis Full code Plan: -Patient continues on IV vancomycin for the enterococcus bacteremia repeat blood cultures have been negative . Patient will continue on vancomycin for 2 weeks with dialysis each session and will continue on Thursday/Thursday/Thursday dialysis close outpatient follow-up with nephrology -Case management following and will be submitted for insurance authorization as patient has been accepted at [facility]. Patient will continue on vancomycin with dialysis for 2 weeks on discharge -HERIBERTO done this admission for vegetation or endocarditis -Patient is maintained on Xarelto -continue renal diet with fluid restrictions. Low potassium diet. Continue Ac cu-Cheks before meals and at bedtime and sliding scale as needed -Patient has been voiding without a Barkley and will continue to monitor intake and output closely -Continue with PT/OT therapy daily. Patient was independent with ADLs prior to these hospitalizations and has had 2 prolonged hospitalization secondary to significant comorbidities requiring emergent dialysis and IV antibiotic therapy. Patient would benefit greatly at an ECF with continued PT/OT therapy for strengthening mobility prior to returning home. Patient was discharged on last admission and went home and was too weak requiring immediate readmission to the hospital and was also found to have a UTI with bacteremia with concerns of permacath infection. Patient has had that cath removed and cultures were negative. Patient will continue on 2 weeks of vancomycin with dialysis and close outpatient follow-up with infectious disease. Insurance is requesting a peer to peer for evaluation and approval of going to ECF. Insurance authorization was approved -Overall prognosis is poor and guarded -Possible discharge in the next 24-48 hours The impression and plan of care has been dictated by Sandra Ayala, Nurse Practitioner as directed. Dr. Cleopatra MD I have performed a history and examination and MDM of this patient, discussed the same with the dictator, and agree with the dictator's assessment and plan as written ,documented as a scribe. Based on total visit time, I have performed more than 50% of the visit. Objective - Vital Signs Vital signs: Vital Signs Temp 98.7 F 03/30/23 06:45 Pulse 86 03/30/23 06:45 Resp 18 03/30/23 06:45 BP 145/80 03/30/23 06:45 Pulse Ox 96 03/30/23 08:14 FiO2 Intake & Output 03/29/23 03/30/23 03/30/23 18:59 06:59 18:59 Intake Total 500 Output Total 500 350 Balance 0 -350 Intake: Intake, IV Titration 500 Amount Vancomycin 1,750 mg In 500 Sodium Chloride 0.9% 500 ml 500 ml @ 167 mls/hr IVPB ONCE ONE Rx#: [id number] Output: Urine 500 350 Other: Voiding Method Urinal - Labs CBC & Chem 7: 03/27/23 06:31 03/30/23 06:12 Labs: Abnormal Lab Results - Last 24 Hours (Table) 03/29/23 03/29/23 03/29/23 Range/Units 11:29 16:16 21:11 BUN (9.0-27.0) mg/dL Creatinine (0.6-1.5) mg/dL Est GFR (CKD-EPI) (>=60) BUN/Creatinine Ratio (12.00-20.00) Ratio Glucose (70-110) mg/dL POC Glucose (mg/dL) 123 H 172 H 148 H (70-110) mg/dL Calcium (8.7-10.3) mg/dL Phosphorus (2.4-5.1) mg/dL 03/30/23 03/30/23 Range/Units 06:09 06:12 BUN 28.7 H (9.0-27.0) mg/dL Creatinine 3.4 H (0.6-1.5) mg/dL Est GFR (CKD-EPI) 19 L (>=60) BUN/Creatinine Ratio 8.44 L (12.00-20.00) Ratio Glucose 119 H (70-110) mg/dL POC Glucose (mg/dL) 117 H (70-110) mg/dL Calcium 7.8 L (8.7-10.3) mg/dL Phosphorus 5.5 H (2.4-5.1) mg/dL
[2023-03-31] MEDS: INSULIN ASPART (NovoLOG) 100 UNIT/ML VIAL SQ SCH ×2 (06:34→12:16)
[2023-03-31] MEDS: MIDODRINE 5 MG TAB PO SCH ×2 (06:35→13:09)
[2023-03-31 08:03] LABS: African American GFR (CKD) 24 (>60 ml/min/1.73 sqM); Anion Gap 1 mmol/L; Blood Urea Nitrogen 27 mg/dL (9-20); Calcium 7.5 mg/dL (8.4-10.2); Carbon Dioxide 30 mmol/L (22-30); Chloride 102 mmol/L (98-107); Glucose 122 mg/dL (74-99); Non-African American GFR(CKD) 21 (>60 ml/min/1.73 sqM); Potassium 4.4 mmol/L (3.5-5.1); Sodium 133 mmol/L (137-145)
[2023-03-31] MEDS: atenoloL 25 MG TAB PO SCH (09:05)
[2023-03-31] MEDS: CHOLECALCIFEROL 125 MCG (5000 IU) TABLET PO SCH (09:06)
[2023-03-31] MEDS: TAMSULOSIN 0.4 MG CAP.ER.24H PO SCH (09:06)
[2023-03-31] MEDS: RIVAROXABAN 20 MG TAB PO SCH (09:06)
[2023-03-31] MEDS: MAGNESIUM OXIDE 400 MG TAB PO SCH (09:06)
[2023-03-31] MEDS: TORSEMIDE 20 MG TAB PO SCH (09:06)
[2023-03-31] MEDS: ASPIRIN 81 MG PO SCH (09:06)
[2023-03-31] MEDS: ATORVASTATIN 40 MG TAB PO SCH (09:06)
[2023-03-31] MEDS: THIAMINE 100 MG TAB PO SCH (09:06)
--- NOTE | 2023-03-31 09:54 | P.PN ---
Subjective Patient is seen in follow-up for acute kidney injury, hemodialysis dependent. No problems with dialysis yesterday. Tolerated 4 L ultrafiltration yesterday. Hemodynamically stable. No changes overnight. Vital signs are stable. General: No acute distress. HEENT: Head exam is unremarkable. On nasal cannula. LUNGS: Scattered rhonchi. HEART: Rate and Rhythm are regular. ABDOMEN: Nontender. EXTREMITITES: 2+ edema. Objective - Vital Signs Vital signs: Vital Signs Temp 97.9 F 03/31/23 07:20 Pulse 92 03/31/23 07:20 Resp 20 03/31/23 07:20 BP 109/56 03/31/23 07:20 Pulse Ox 98 03/31/23 07:20 FiO2 Intake & Output 03/30/23 03/31/23 03/31/23 18:59 06:59 18:59 Intake Total 300 Output Total 4400 300 100 Balance -4100 -300 -100 Intake: Hemodialysis 300 Output: Urine 100 300 100 Hemodialysis 4300 Other: Voiding Method Urinal # Voids 1 # Bowel Movements 1 1 - Labs CBC & Chem 7: 03/27/23 06:31 03/31/23 07:00 Labs: Abnormal Lab Results - Last 24 Hours (Table) 03/30/23 03/30/23 03/30/23 Range/Units 06:12 11:10 16:19 Sodium (137-145) mmol/L BUN 28.7 H (9.0-27.0) mg/dL Creatinine 3.4 H (0.6-1.5) mg/dL Est GFR (CKD-EPI) 19 L (>=60) BUN/Creatinine Ratio 8.44 L (12.00-20.00) Ratio Glucose 119 H (70-110) mg/dL POC Glucose (mg/dL) 151 H 192 H (70-110) mg/dL Calcium 7.8 L (8.7-10.3) mg/dL Phosphorus 5.5 H (2.4-5.1) mg/dL 03/30/23 03/31/23 03/31/23 Range/Units 19:53 05:45 07:00 Sodium 133 L (137-145) mmol/L BUN 27 H (9.0-27.0) mg/dL Creatinine 2.95 H (0.6-1.5) mg/dL Est GFR (CKD-EPI) (>=60) BUN/Creatinine Ratio (12.00-20.00) Ratio Glucose 122 H (70-110) mg/dL POC Glucose (mg/dL) 180 H 123 H (70-110) mg/dL Calcium 7.5 L (8.7-10.3) mg/dL Phosphorus (2.4-5.1) mg/dL Assessment and Plan Plan: Assessment: 1. Acute kidney injury secondary to ATN secondary to cardiorenal syndrome, hypotension started on hemodialysis 02/25/2023. Baseline creatinine near 1 from September 2022. 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 No h ydronephrosis noted on kidney ultrasound done 02/25/2023. 2. Acute on chronic diastolic CHF. 3. Volume overload. Improving with ultrafiltration. 4. Anemia. Iron deficiency noted - s/p IV iron. On Aranesp. 5. Group D enterococcus bacteremia. Likely urinary source. Urine culture positive for enterococcus. ID following. Also concern for permacath infection -status post removal and new catheter placed 03/24/2023. Plan: Ultrafiltration only treatment today with goal 3 L fluid removal. HD tomorrow. He will be maintained on Thursday schedule outpatient. Phosphorus level 5.4 dated 03/13/2023. Monitor for renal recovery outpatient. Maintain torsemide. Monitor vancomycin levels. Dose to be adjusted for renal function.
[2023-03-31] MEDS ORDERED: VANCOMYCIN 1,750 MG in SODIUM CHLORIDE 0.9% 500 ML 500 ML IVPB ONE (11:00)
[2023-03-31 11:26] LABS: Basophils # (A) 0.13 X 10*3/uL (0.00-0.10); Basophils % (A) 1.2 %; Eosinophils # (A) 0.67 X 10*3/uL (0.04-0.35); Eosinophils % (A) 6.1 %; HCT 26.2 % (39.6-50.0); HGB 7.7 d/dL (13.0-17.0); Lymphocytes # (A) 1.57 X 10*3/uL (0.90-5.00); Lymphocytes % (A) 14.2 %; MCH 28.7 pg (27.0-32.0); MCHC 29.4 d/dL (32.0-37.0); MCV 97.8 FL (80.0-97.0); Monocytes # (A) 1.11 X 10*3/uL (0.20-1.00); Monocytes % (A) 10.1 %; NRBC Per 100 WBC 0 X 10*3/uL (0.00-0.01); Neutrophils # (A) 7.37 X 10*3/uL (1.80-7.70); Neutrophils % (A) 66.8 %; Platelet Count 86 X 10*3/uL (140-440); RBC 2.68 X 10*6/uL (4.40-5.60); RDW 15.9 % (11.5-14.5); WBC 11.03 X 10*3/uL (4.50-10.00)
[2023-03-31 11:40] LABS: Glucose,Whole Blood 126 mg/dL (70-110)
[2023-03-31 14:10] VITALS: BP 98/60; PULSE 107; RESP 16; TEMP 98.4
--- NOTE | 2023-03-31 14:40 | P.DS ---
Providers Date of admission: 03/12/23 21:26 Expected date of discharge: 03/31/23 Attending physician: Giovani Gardner Consults: 03/12/23 21:26 Consult Physician Routine Consulting Provider: Annabel Gonzalez Consult Reason/Comments: known Do you want consulting provider notified?: Yes 03/13/23 09:43 Consult Physician Routine Consulting Provider: Marely Clemons Consult Reason/Comments: uti, sepsis, has palafox, discharged yesterday Do you want consulting provider notified?: Yes 03/19/23 11:47 Consult Physician Urgent Consulting Provider: Sergio Cano Consult Reason/Comments: removal of vascular access after dialysis today-send for culture/infection Do you want consulting provider notified?: Yes 03/26/23 11:31 Consult Physician Urgent Consulting Provider: Jesús Hoskins Consult Reason/Comments: enterococus bacteremia--HERIBERTO r/o endocarditis Do you want consulting provider notified?: Yes 03/30/23 11:33 Consult Physician Routine Consulting Provider: Kamran Pardo Consult Reason/Comments: left kidney nodule Do you want consulting provider notified?: Yes Primary care physician: Tomasz Canales Hospital Course: Final diagnosis Acute renal failure, nonoliguric, acute tubular necrosis secondary to cardiorenal syndrome and hypotension, recently started on dialysis on 02/25/2023 last admission Acute on chronic diastolic congestive heart failure, acute exacerbation Acute on chronic hypoxic respiratory failure, secondary to CHF exacerbation Acute urinary tract infection, present on admission, secondary to indwelling Palafox catheter growing enterococcus Features of sepsis, present on admission secondary to urinary tract infection with bacteremia Anemia, iron deficiency Pressure ulcers, stage II, bilateral buttocks, present on admission History of diabetes mellitus, type II, [id number] Group D enterococcus bacteremia possibly secondary to urinary tract infection also with concerns of possible dialysis catheter infection and cultures from dialysis catheter tip are negative 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 History of bullous pemphigus, has chronic left lower extremity wound GI prophylaxis DVT prophylaxis Full code Discharge disposition Patient is being discharged in a stable condition with guarded prognosis to [facility] . Patient will follow-up with Dr. Canales in the outpatient setting upon discharge. Patient is to continue with hemodialysis as scheduled. Patient will continue on Thursday/Thursday/Thursday next treatment being tomorrow. Patient will continue on vancomycin with dialysis for 2 weeks duration. Total time taken is greater than 35 minutes. Hospital course This is a 67-year-old male who was recently admitted after prolonged hospitalization for significant weakness acute renal failure requiring hemodialysis. Patient went home scheduled for home care once his first dialysis appointment became progressively more weak with inability to ambulate and brought back to the hospital. Patient has had prolonged hospitalization once again and has had positive blood cultures along with urinary tract infection. Multiple medical consultations following and patient maintained on hemodialysis. Patient received another dialysis catheter as his first one was concern for infection. Patient did have a UTI on admission with blood and urine cultures finalized showing enterococcus faecalis. Most recent blood cultures along with catheter tip culture have finalized as negative and patient will continue on vancomycin with pharmacy to dose with hemodialysis for 2 weeks duration. 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 Patient has been cleared by consultations for discharge and has been accepted at [facility]. [facility] elijah initially denied authorization and Peer to peer was approved for admission to [facility]. Please refer to the consultation notes for further HPI. Currently no reports of chest pain, worsening shortness of breath, or palpitations. Patient is afebrile. No reports of nausea or vomiting and patient is tolerating diet. Patient will be going to [facility] today. Guarded prognosis and high risk for readmission given patient's significant comorbidities. Physical exam: Gen: This is a 67-year-old male who is awake, alert and oriented 3, well- developed, well-nourished, obese HEENT: Head is atraumatic, normocephalic. Pupils equal, round. Sclerae is anicteric. NECK: Supple. No JVD. No lymphadenopathy. No thyromegaly. LUNGS: Diminished breath sounds bilaterally with coarse rhonchi. No intercostal retractions. HEART: S1, S2 are muffled ABDOMEN: Soft. Obese. Bowel sounds are present. No masses. No tenderness. EXTREMITIES: No pedal edema. No calf tenderness. Chronic upper and lower extremity edema noted NEUROLOGICAL: Patient is awake, alert and oriented x3. Cranial nerves 2 through 12 are grossly intact. Diffusely weak Please refer to medication reconciliation sheet for a list of medications. The impression and plan of care has been dictated by Sandra Ayala, Nurse Practitioner as directed. Dr. Jj MD I have performed a history and examination and MDM of this patient, discussed the same with the dictator, and agree with the dictator's assessment and plan as written ,documented as a scribe. Based on total visit time, I have performed more than 50% of the visit. Patient Condition at Discharge: Fair Plan - Discharge Summary Discharge Rx Participant: Yes New Discharge Prescriptions: New Sodium Chloride 0.65% Nasal [Deep Sea (Saline)] 2 spray NASAL QID PRN ml PRN Reason: Dry Nasal Passages Magnesium Oxide [Mag-Ox] 400 mg PO BID tab HYDROcodone/APAP 7.5-325MG [Nikolski 7.5-325] 1 each PO Q4HR PRN #4 tab PRN Reason: Pain Midodrine [ProAmatine] 10 mg PO AC-TID PRN tab PRN Reason: Blood Pressure - Low atenoloL [Tenormin] 25 mg PO DAILY tab Acetaminophen Tab [Tylenol] 650 mg PO Q6HR PRN tab PRN Reason: Fever and/ or Mild Pain Melatonin 5 mg PO HS PRN tab PRN Reason: Insomnia INSULIN ASPART (NovoLOG) [NovoLOG (formulary)] 0 unit SQ ACHS each Continue Rivaroxaban [Xarelto] 20 mg PO DAILY 30 Days #30 tab Darbepoetin Naun [Aranesp] 40 mcg SQ Q7D each Torsemide [Demadex] 40 mg PO DAILY 30 Days #60 tab Midodrine [ProAmatine] 10 mg PO AC-TID 30 Days #180 tab Tamsulosin [Flomax] 0.4 mg PO DAILY Atorvastatin [Lipitor] 40 mg PO DAILY Cholecalciferol [Vitamin D3 (125 Mcg = 5000 Iu)] 125 mcg PO DAILY Aspirin EC [Ecotrin Low Dose] 81 mg PO DAILY Vitamin B Complex 1 cap PO DAILY Nystatin 100,000 Unit/gm Powd [Mycostatin Powder] 1 applic TOPICAL BID PRN 30 Days #1 each PRN Reason: chafing Thiamine [Vitamin B-1] 100 mg PO DAILY #30 tab Ergocalciferol [Vitamin D2 (1250 Mcg = 79276 Iu)] 1,250 mcg PO Q7D #4 cap Discontinued atenoloL [Tenormin] 25 mg PO BID metFORMIN HCL ER [Glucophage XR] 250 mg PO DAILY Magnesium 250 mg PO BID Alpha Lipoic Acid 1,200 mg PO BID lisinopriL [Prinivil] 20 mg PO DAILY HYDROcodone/APAP 5-325MG [Nikolski 5-325] 1 tab PO Q6HR PRN PRN Reason: Pain Discharge Medication List Aspirin EC [Ecotrin Low Dose] 81 mg PO DAILY 10/20/22 [History] Atorvastatin [Lipitor] 40 mg PO DAILY 10/20/22 [History] Cholecalciferol [Vitamin D3 (125 Mcg = 5000 Iu)] 125 mcg PO DAILY 10/20/22 [History] Tamsulosin [Flomax] 0.4 mg PO DAILY 10/20/22 [History] Rivaroxaban [Xarelto] 20 mg PO DAILY 30 Days #30 tab 10/22/22 [Rx] Vitamin B Complex 1 cap PO DAILY 02/24/23 [History] Darbepoetin Naun [Aranesp] 40 mcg SQ Q7D each 03/11/23 [Rx] Ergocalciferol [Vitamin D2 (1250 Mcg = 90570 Iu)] 1,250 mcg PO Q7D #4 cap 03/11/23 [Rx] Midodrine [ProAmatine] 10 mg PO AC-TID 30 Days #180 tab 03/11/23 [Rx] Nystatin 100,000 Unit/gm Powd [Mycostatin Powder] 1 applic TOPICAL BID PRN 30 Days #1 each 03/11/23 [Rx] Thiamine [Vitamin B-1] 100 mg PO DAILY #30 tab 03/11/23 [Rx] Torsemide [Demadex] 40 mg PO DAILY 30 Days #60 tab 03/11/23 [Rx] Acetaminophen Tab [Tylenol] 650 mg PO Q6HR PRN tab 03/31/23 [Rx] HYDROcodone/APAP 7.5-325MG [Nikolski 7.5-325] 1 each PO Q4HR PRN #4 tab 03/31/23 [Rx] INSULIN ASPART (NovoLOG) [NovoLOG (formulary)] 0 unit SQ ACHS each 03/31/23 [Rx] Magnesium Oxide [Mag-Ox] 400 mg PO BID tab 03/31/23 [Rx] Melatonin 5 mg PO HS PRN tab 03/31/23 [Rx] Midodrine [ProAmatine] 10 mg PO AC-TID PRN tab 03/31/23 [Rx] Sodium Chloride 0.65% Nasal [Deep Sea (Saline)] 2 spray NASAL QID PRN ml 03/31/23 [Rx] atenoloL [Tenormin] 25 mg PO DAILY tab 03/31/23 [Rx] Follow up Appointment(s)/Referral(s): [facility] [NON-STAFF] - 04/01/23 6:20 am (Chair time on M/W/F at 6:35a. Please arrive to first appt at 6:20a.) Azam Garza MD [STAFF PHYSICIAN] - 1 Week [facility], [NON-STAFF] - As Needed Tomasz Canales MD [Primary Care Provider] - 1-2 days Ambulatory/Diagnostic Orders: Complete Blood Count w/diff [LAB.AMB] Time Frame: 2 Days, Location: None Selected Activity/Diet/Wound Care/Special Instructions: Patient is going to [facility] Activity as tolerated Continue renal diet, diabetic heart healthy diet continue with Accu-Cheks before meals and at bedtime and sliding scale as needed NovoLog sliding scale 0-150 equals 0 units 151-200 equals 2 units 201-250 equals 4 units 251-300 equals 6 units 301-350 equals 8 units 351-400 equals 10 units Please notify provider if blood sugar is 400 or above Follow-up with urology outpatient Continue dialysis Thursday/Thursday/Thursday Follow-up with nephrology outpatient along with cardiology Follow-up with your material distributor outpatient Discharge Disposition: TRANSFER TO SNF/ECF
--- NOTE | 2023-03-31 16:27 | P.GSCN ---
History of Present Illness Consult date: 03/31/23 Reason for Consult: Left renal lesion Requesting physician: Stephan Lopez History of present illness: The patient is a 67-year-old white male hospitalized last month with acute kidney injury, fluid overload, CHF, and hypoxic respiratory failure. He was significantly volume overloaded and underwent dialysis. Urine and blood cultures showed Enterococcus faecalis. A Barkley catheter was placed for urinary retention. He was noted during that hospitalization (following catheter placement) to have hematuria. Renal ultrasound showed no evidence of hydronephrosis, but an indeterminate hypoechoic nodule was seen within the left kidney. I am consulted for this reason. The Barkley catheter is now out, and the patient states that he is voiding without difficulty. He denies dysuria and hematuria. Review of Systems - Constitutional Reports weakness - Genitourinary Reports as per HPI Past Medical History Past Medical History: Atrial Fibrillation, Heart Failure, Diabetes Mellitus, Deep Vein Thrombosis (DVT), Hypertension, Osteoarthritis (OA), Prostate Disorder Additional Past Medical History / Comment(s): back pain, MRI scheduled for 10/28/22 History of Any Multi-Drug Resistant Organisms: None Reported Past Surgical History: Orthopedic Surgery Additional Past Surgical History / Comment(s): bilateral total hip replacement. 200705-12-16 TOTAL RIGHT HIP REPLACEMENT. RT KNEE SX. RT SHOULDER SX. COLONOSCOPY Past Anesthesia/Blood Transfusion Reactions: No Reported Reaction Past Psychological History: No Psychological Hx Reported Smoking Status: Former smoker Past Alcohol Use History: None Reported Past Drug Use History: None Reported - Past Family History Mother Family Medical History: Diabetes Mellitus Father Additional Family Medical History / Comment(s): FROM SPINAL MENNINGIT[facility] Medications and Allergies Home Medications Medication Instructions Recorded Confirmed Type Aspirin EC [Ecotrin Low Dose] 81 mg PO DAILY 10/20/22 03/12/23 History Atorvastatin [Lipitor] 40 mg PO DAILY 10/20/22 03/12/23 History Cholecalciferol [Vitamin D3 (125 125 mcg PO DAILY 10/20/22 03/12/23 History Mcg = 5000 Iu)] Tamsulosin [Flomax] 0.4 mg PO DAILY 10/20/22 03/12/23 History Rivaroxaban [Xarelto] 20 mg PO DAILY 30 Days #30 tab 10/22/22 03/12/23 Rx Vitamin B Complex 1 cap PO DAILY 02/24/23 03/12/23 History Darbepoetin Naun [Aranesp] 40 mcg SQ Q7D each 03/11/23 03/12/23 Rx Ergocalciferol [Vitamin D2 (1250 1,250 mcg PO Q7D #4 cap 03/11/23 03/12/23 Rx Mcg = 20931 Iu)] Midodrine [ProAmatine] 10 mg PO AC-TID 30 Days #180 tab 03/11/23 03/12/23 Rx Nystatin 100,000 Unit/gm Powd 1 applic TOPICAL BID PRN 30 Days 03/11/23 03/12/23 Rx [Mycostatin Powder] #1 each Thiamine [Vitamin B-1] 100 mg PO DAILY #30 tab 03/11/23 03/12/23 Rx Torsemide [Demadex] 40 mg PO DAILY 30 Days #60 tab 03/11/23 03/12/23 Rx Acetaminophen Tab [Tylenol] 650 mg PO Q6HR PRN tab 03/31/23 Rx HYDROcodone/APAP 7.5-325MG [Bison 1 each PO Q4HR PRN #4 tab 03/31/23 Rx 7.5-325] INSULIN ASPART (NovoLOG) [NovoLOG 0 unit SQ ACHS each 03/31/23 Rx (formulary)] Magnesium Oxide [Mag-Ox] 400 mg PO BID tab 03/31/23 Rx Melatonin 5 mg PO HS PRN tab 03/31/23 Rx Midodrine [ProAmatine] 10 mg PO AC-TID PRN tab 03/31/23 Rx Sodium Chloride 0.65% Nasal [Deep 2 spray NASAL QID PRN ml 03/31/23 Rx Sea (Saline)] atenoloL [Tenormin] 25 mg PO DAILY tab 03/31/23 Rx Allergies Allergy/AdvReac Type Severity Reaction Status Date / Time Penicillins Allergy Rash/Hives Verified 03/12/23 20:01 ibuprofen AdvReac BURING Verified 03/12/23 20:01 SENSATION IN ARMS Surgical - Exam Vital Signs Pulse Resp BP Pulse Ox 90 22 90/43 100 03/12/23 19:03 03/12/23 19:03 03/12/23 19:03 03/12/23 19:03 - General well developed, well nourished, no distress - Respiratory normal respiratory effort - Abdomen Abdomen: soft, non tender, no guarding, no rigid, no rebound - Genitourinary normal penis with no external lesions, testicles non-tender - Psychiatric oriented to time, oriented to person, oriented to place, speech is normal, memory intact Results - Labs 03/31/23 07:00 03/31/23 07:00 Abnormal Lab Results - Last 24 Hours (Table) 03/30/23 03/30/23 03/30/23 Range/Units 06:12 11:10 16:19 BUN 28.7 H (9.0-27.0) mg/dL Creatinine 3.4 H (0.6-1.5) mg/dL Est GFR (CKD-EPI) 19 L (>=60) BUN/Creatinine Ratio 8.44 L (12.00-20.00) Ratio Glucose 119 H (70-110) mg/dL POC Glucose (mg/dL) 151 H 192 H (70-110) mg/dL Calcium 7.8 L (8.7-10.3) mg/dL Phosphorus 5.5 H (2.4-5.1) mg/dL 03/30/23 03/31/23 Range/Units 19:53 05:45 BUN (9.0-27.0) mg/dL Creatinine (0.6-1.5) mg/dL Est GFR (CKD-EPI) (>=60) BUN/Creatinine Ratio (12.00-20.00) Ratio Glucose (70-110) mg/dL POC Glucose (mg/dL) 180 H 123 H (70-110) mg/dL Calcium (8.7-10.3) mg/dL Phosphorus (2.4-5.1) mg/dL Diabetes panel 03/30/23 Range/Units 06:12 Sodium 137 (135-145) mmol/L Potassium 5.0 (3.5-5.5) mmol/L Chloride 101 (96-109) mmol/L Carbon Dioxide 24.2 (21.6-31.8) mmol/L BUN 28.7 H (9.0-27.0) mg/dL Creatinine 3.4 H (0.6-1.5) mg/dL Glucose 119 H (70-110) mg/dL Calcium 7.8 L (8.7-10.3) mg/dL Calcium panel 03/30/23 Range/Units 06:12 Calcium 7.8 L (8.7-10.3) mg/dL Phosphorus 5.5 H (2.4-5.1) mg/dL Pituitary panel 03/30/23 Range/Units 06:12 Sodium 137 (135-145) mmol/L Potassium 5.0 (3.5-5.5) mmol/L Chloride 101 (96-109) mmol/L Carbon Dioxide 24.2 (21.6-31.8) mmol/L BUN 28.7 H (9.0-27.0) mg/dL Creatinine 3.4 H (0.6-1.5) mg/dL Glucose 119 H (70-110) mg/dL Calcium 7.8 L (8.7-10.3) mg/dL Adrenal panel 03/30/23 Range/Units 06:12 Sodium 137 (135-145) mmol/L Potassium 5.0 (3.5-5.5) mmol/L Chloride 101 (96-109) mmol/L Carbon Dioxide 24.2 (21.6-31.8) mmol/L BUN 28.7 H (9.0-27.0) mg/dL Creatinine 3.4 H (0.6-1.5) mg/dL Glucose 119 H (70-110) mg/dL Calcium 7.8 L (8.7-10.3) mg/dL - Imaging US - kidney/bladder: report reviewed Assessment and Plan (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 I explained that this may be nothing more than a simple cyst, but conversely it could represent renal cell carcinoma. I explained to him that ultrasound could not adequately evaluate the lesion. I explained that both CT scan and MRI can better evaluate the lesion, though both are limited by the fact that contrast is contraindicated given his renal disease. He states that he is claustrophobic and would have difficulty undergoing either of these procedures. I explained to him that a CT scan is done quickly, but ultimately he has decli john any further evaluation at this time. Please notify me if I can be of any further assistance. Time with Patient: Greater than 30
== END 2023-03-31 15:55 | DRG 698 ==
LOC: EC 18:58 → OBSVTOIN 21:26 → 5NMEDONC 21:26 → 4SSUR 21:34
PROVIDERS: ADMIT Hospitalist; ATTEND Hospitalist
PROC: 05HY33Z Insertion of Infusion Device into Upper Vein, Percutaneous Approach (ICD-10-PCS; 2023-03-16)
PROC: 5A1D70Z Performance of Urinary Filtration, Intermittent, Less than 6 Hours Per Day (ICD-10-PCS; principal; 2023-03-19)
PROC: 05HY33Z Insertion of Infusion Device into Upper Vein, Percutaneous Approach (ICD-10-PCS; 2023-03-23)
PROC: 02HV33Z Insertion of Infusion Device into Superior Vena Cava, Percutaneous Approach (ICD-10-PCS; 2023-03-24 14:30)
PROC: B24BZZ4 Ultrasonography of Heart with Aorta, Transesophageal (ICD-10-PCS; 2023-03-27)
DX: T83.518A Infection and inflammatory reaction due to other urinary catheter, initial encounter (principal); A41.81 Sepsis due to Enterococcus; I50.33 Acute on chronic diastolic (congestive) heart failure; N18.6 End stage renal disease; N17.0 Acute kidney failure with tubular necrosis; J96.21 Acute and chronic respiratory failure with hypoxia; I13.2 Hypertensive heart and chronic kidney disease with heart failure and with stage 5 chronic kidney disease, or end stage renal disease; I48.19 Other persistent atrial fibrillation; E87.1 Hypo-osmolality and hyponatremia; L10.9 Pemphigus, unspecified; N39.0 Urinary tract infection, site not specified; D41.02 Neoplasm of uncertain behavior of left kidney; E11.22 Type 2 diabetes mellitus with diabetic chronic kidney disease; F40.240 Claustrophobia; I95.9 Hypotension, unspecified; D63.1 Anemia in chronic kidney disease; Z99.2 Dependence on renal dialysis; Z79.4 Long term (current) use of insulin; R33.9 Retention of urine, unspecified; L89.322 Pressure ulcer of left buttock, stage 2; E66.9 Obesity, unspecified; L89.312 Pressure ulcer of right buttock, stage 2; Z68.39 Body mass index [BMI] 39.0-39.9, adult; E78.5 Hyperlipidemia, unspecified; E87.5 Hyperkalemia; M19.90 Unspecified osteoarthritis, unspecified site; R53.81 Other malaise; G89.29 Other chronic pain; Y84.6 Urinary catheterization as the cause of abnormal reaction of the patient, or of later complication, without mention of misadventure at the time of the procedure; Z86.718 Personal history of other venous thrombosis and embolism; Z83.3 Family history of diabetes mellitus; Z87.891 Personal history of nicotine dependence; Z96.643 Presence of artificial hip joint, bilateral; Z79.01 Long term (current) use of anticoagulants; Z79.82 Long term (current) use of aspirin; Z79.899 Other long term (current) drug therapy; Z88.6 Allergy status to analgesic agent; Z88.0 Allergy status to penicillin
CPT/HCPCS: 36410; 36415; 36558; 71045; 76937; 80048; 80053; 80202; 81001; 82565; 82728; 83540; 83550; 83605; 83735; 84100; 84484; 85025; 85610; 85730; 86706; 86850; 86900; 86901; 86920; 87040; 87070; 87077; 87086; 87186; 87340; 90935; 93005; 93308; 93312; 93320; 93325; 94760; 96361; 96365; 96375; 99285

== ENCOUNTER 2023-06-22 21:12 | Inpatient (IN) | payer MEDICARE ==
--- NOTE | 2023-06-22 21:37 | ED ---
Fall HPI - General Chief Complaint: Fall Stated Complaint: fall Time Seen by Provider: 06/22/23 21:16 Source: patient, EMS Mode of arrival: EMS - History of Present Illness Initial Comments: All this is a 67-year-old gentleman with extensive past medical history recent prolonged admissions with renal failure requiring dialysis complicated by infection and positive blood cultures. Patient presents ER today after follow home. Patient reports that he was walking with his walker as usual when he lost his balance and fell. Patient reports he felt kind of backwards into his right landing on his right side against the wall. Patient states he laid on the floor for over an hour and his back muscles began to spasm reports significant pain in his low back area no other injuries. - Related Data Home Medications Medication Instructions Recorded Confirmed Aspirin EC [Ecotrin Low Dose] 81 mg PO DAILY@189910/20/22 06/22/23 Atorvastatin [Lipitor] 40 mg PO DAILY@189910/20/22 06/22/23 Cholecalciferol [Vitamin D3 (125 125 mcg PO DAILY@189910/20/22 06/22/23 Mcg = 5000 Iu)] Tamsulosin [Flomax] 0.4 mg PO DAILY@189910/20/22 06/22/23 Vitamin B Complex 1 cap PO DAILY@189902/24/23 06/22/23 Cyclobenzaprine [Flexeril] 5 mg PO TID@0700,1500,23006/22/23 06/22/23 HYDROcodone/APAP 5-325MG [[place] 1 tab PO Q6H PRN 06/22/23 06/22/23 5-325] Magnesium Oxide [Mag-Ox] 400 mg PO BID@0700,1900 06/22/23 06/22/23 Metoprolol Succinate [Metoprolol 25 mg PO DAILY@189906/22/23 06/22/23 Succinate ER] Midodrine HCl [ProAmantine] 2.5 mg PO TID@0700,1500,2300 06/22/23 06/22/23 Potassium Chloride ER [K-Dur 10] 10 meq PO DAILY@189906/22/23 06/22/23 Rivaroxaban [Xarelto] 20 mg PO DAILY@189906/22/23 06/22/23 Thiamine [Vitamin B-1] 100 mg PO DAILY@1900 06/22/23 06/22/23 Torsemide [Demadex] 40 mg PO BID@0700,1900 06/22/23 06/22/23 Previous Rx's Medication Instructions Recorded Acetaminophen Tab [Tylenol] 650 mg PO Q6HR PRN tab 03/31/23 Melatonin 5 mg PO HS PRN tab 03/31/23 Sodium Chloride 0.65% Nasal [Deep 2 spray NASAL QID PRN ml 03/31/23 Sea (Saline)] Allergies Allergy/AdvReac Type Severity Reaction Status Date / Time Penicillins Allergy Rash/Hives Verified 06/22/23 22:52 ibuprofen AdvReac BURING Verified 06/22/23 22:52 SENSATION IN ARMS Review of Systems ROS Statement: Those systems with pertinent positive or pertinent negative responses have been documented in the HPI. ROS Other: All systems not noted in ROS Statement are negative. Past Medical History Past Medical History: Atrial Fibrillation, Heart Failure, Diabetes Mellitus, Deep Vein Thrombosis (DVT), Hypertension, Osteoarthritis (OA), Prostate Disorder Additional Past Medical History / Comment(s): back pain, MRI scheduled for 10/28/22 History of Any Multi-Drug Resistant Organisms: None Reported Past Surgical History: Orthopedic Surgery Additional Past Surgical History / Comment(s): bilateral total hip replacement. 2007 .05-12-16 TOTAL RIGHT HIP REPLACEMENT. RT KNEE SX. RT SHOULDER SX. COLONOSCOPY Past Anesthesia/Blood Transfusion Reactions: No Reported Reaction Past Psychological History: No Psychological Hx Reported Smoking Status: Former smoker Past Alcohol Use History: None Reported Past Drug Use History: None Reported - Past Family History Mother Family Medical History: Diabetes Mellitus Father Additional Family Medical History / Comment(s): FROM SPINAL [place]INGIT[place] General Exam General appearance: alert, in distress (in pain) Head exam: Present: atraumatic, normocephalic Eye exam: Present: PERRL Neck exam: Absent: tenderness Respiratory exam: Absent: respiratory distress Cardiovascular Exam: Present: tachycardia, irregular rhythm GI/Abdominal exam: Present: soft, distended. Absent: tenderness Rectal exam: Present: deferred Extremities exam: Present: pedal edema Back exam: Present: vertebral tenderness Neurological exam: Present: alert, oriented X3 Psychiatric exam: Present: normal mood Skin exam: Present: warm, dry Course Vital Signs 06/22/23 06/22/23 06/23/23 21:14 23:36 00:34 Pulse Rate 122 H 117 H 116 H Respiratory 19 20 19 Rate Blood Pressure 154/86 120/70 127/79 O2 Sat by Pulse 98 100 98 Oximetry 06/23/23 06/23/23 01:52 03:22 Pulse Rate 151 H 101 H Respiratory 19 19 Rate Blood Pressure 101/83 118/82 O2 Sat by Pulse 94 L 96 Oximetry Medical Decision Making - Medical Decision Making Was pt. sent in by a medical professional or institution (, ANDREWS, DRYING ROOM SUPERVISOR, urgent care, hospital, or group home...) When possible be specific @ -No Did you speak to anyone other than the patient for history (EMS, parent, family, police, friend...)? What history was obtained from this source @ -No Did you review nursing and triage notes (agree or disagree)? Why? @ -I reviewed and agree with nursing and triage notes Were old charts reviewed (outside hosp., previous admission, EMS record, old EKG, old radiological studies, urgent care reports/EKG's, group home records)? Report findings @ -Previous admission and microbiology studies were reviewed Differential Diagnosis (chest pain, altered mental status, abdominal pain women, abdominal pain men, vaginal bleeding, weakness, fever, dyspnea, syncope, headache, dizziness, GI bleed, back pain, seizure, CVA, palpatations, mental health)? @ -Differential back pain EKG interpreted by me (3pts min.). @ -As above X-rays interpreted by me (1pt min.). @ -Abnormality in the lumbar spine noted CT interpreted by me (1pt min.). @ -Abnormal findings in the lumbar spine U/S interpreted by me (1pt. min.). @ -None done What testing was considered but not performed or refused? (CT, X-rays, U/S, labs)? Why? @ -MRI, can be performed upon admission What meds were considered but not given or refused? Why? @ -None Did you discuss the management of the patient with other professionals (professionals i.e. ANDREWS Lynn, DRYING ROOM SUPERVISOR, lab, RT, psych nurse, forensic social worker, house father, teacher, dairy quality assurance officer, caseworker)? Give summary @ -No Was smoking cessation discussed for >3mins.? @ -No Was critical care preformed (if so, how long)? @ -Yes, 30 minutes for treatment of sepsis and A. fib with RVR Were there social determinants of health that impacted care today? How? (Homelessness, low income, unemployed, alcoholism, drug addiction, holley sportation, low edu. Level, literacy, decrease access to med. care, [facility], rehab)? @ -No Was there de-escalation of care discussed even if they declined (Discuss DNR or withdrawal of care, Hospice)? DNR status @ -No What co-morbidities impacted this encounter? (DM, HTN, Smoking, COPD, CAD, Cancer, CVA, ARF, Chemo, Hep., AIDS, mental health diagnosis, sleep apnea, morbid obesity)? @ -Diabetes, hypertension, renal failure, morbid obesity Was patient admitted / discharged? Hospital course, mention meds given and route, prescriptions, significant lab abnormalities, going to OR and other pertinent info. @ -Admit The patient was seen and evaluated, history is obtained from the patient and review of medical record. Patient with a mechanical fall complaining of low back pain. X-rays were ordered and suggestive of osteomyelitis or discitis given the patient's recent hospitalization and positive blood cultures he is very high risk for having osteomyelitis or discitis. A septic workup was initiated including repeat blood cultures lactic acid CRP. Computed tomography scan of the back was performed and again is concerning for osteoarthritis or discitis. Vancomycin and cefepime were ordered, patient will be admitted for osteomyelitis and discitis. Infectious disease was consulted. Pain management during the patient's ER visit was performed with IV Dilaudid. Patient with significant pain with any movement. She was noted to have an episode of A. fib with RVR. He was due for his nighttime metoprolol. A single dose of IV metoprolol as well as oral metoprolol was given. She was also given Dilaudid for his pain. His heart rate improved significantly. Patient made hemodynamically stable throughout this time. Undiagnosed new problem with uncertain prognosis? @ -Yes Drug Therapy requiring intensive monitoring for toxicity (Heparin, Nitro, Insulin, Cardizem)? @ -No Were any procedures done? @ -No Diagnosis/symptom? @ -Osteomyelitis Acute, or Chronic, or Acute on Chronic? @ -Acute Uncomplicated (without systemic symptoms) or Complicated (systemic symptoms)? @ -default Side effects of treatment? @ -No Exacerbation, Progression, or Severe Exacerbation? @ -No Poses a threat to life or bodily function? How? (Chest pain, [place], [place], pneumonia, PE, COPD, DKA, ARF, appy, cholecystitis, CVA, Diverticulitis, Homicidal, Suici eleanor, threat to staff... and all critical care pts) @ -Yes, can advance to bacteremia, sepsis, , can result an epidural abscess paralysis. Patient high risk for poor outcome due to previous kidney failure and dialysis dependence. - Lab Data Result diagrams: 06/22/23 23:38 06/22/23 23:38 Lab Results 06/22/23 06/22/23 06/22/23 Range/Units 23:38 23:38 23:38 WBC 10.9 H (3.8-10.6) k/uL RBC 4.16 L (4.30-5.90) m/uL Hgb 11.4 L (13.0-17.5) gm/dL Hct 37.9 L (39.0-53.0) % MCV 91.1 D (80.0-100.0) fL MCH 27.4 (25.0-35.0) pg MCHC 30.1 L (31.0-37.0) g/dL RDW 16.9 H (11.5-15.5) % Plt Count 469 H (150-450) k/uL MPV 8.0 Neutrophils % 79 % Lymphocytes % 12 % Monocytes % 6 % Eosinophils % 3 % Basophils % 0 % Neutrophils # 8.6 H (1.3-7.7) k/uL Lymphocytes # 1.3 (1.0-4.8) k/uL Monocytes # 0.6 (0-1.0) k/uL Eosinophils # 0.3 (0-0.7) k/uL Basophils # 0.0 (0-0.2) k/uL Hypochromasia Marked Anisocytosis Slight PT 11.7 (10.0-12.5) sec INR 1.1 (<1.2) APTT 29.2 (22.0-30.0) sec Sodium 137 (137-145) mmol/L Potassium 4.9 (3.5-5.1) mmol/L Chloride 106 (98-107) mmol/L Carbon Dioxide 24 (22-30) mmol/L Anion Gap 7 mmol/L BUN 30 H (9-20) mg/dL Creatinine 1.22 (0.66-1.25) mg/dL Est GFR (CKD-EPI)AfAm 70 (>60 ml/min/1.73 sqM) Est GFR (CKD-EPI)NonAf 60 (>60 ml/min/1.73 sqM) Glucose 123 H (74-99) mg/dL Lactic Ac Sepsis Rflx Plasma Lactic Acid Juan Carlos (0.7-2.0) mmol/L Calcium 8.3 L (8.4-10.2) mg/dL Total Bilirubin 0.3 (0.2-1.3) mg/dL AST 27 (17-59) U/L ALT 11 (4-49) U/L Alkaline Phosphatase 136 H (38-126) U/L C-Reactive Protein 2.7 H (<1.0) mg/dL Total Protein 6.3 (6.3-8.2) g/dL Albumin 2.2 L (3.5-5.0) g/dL 06/22/23 06/22/23 Range/Units 23:38 23:59 WBC (3.8-10.6) k/uL RBC (4.30-5.90) m/uL Hgb (13.0-17.5) gm/dL Hct (39.0-53.0) % MCV (80.0-100.0) fL MCH (25.0-35.0) pg MCHC (31.0-37.0) g/dL RDW (11.5-15.5) % Plt Count (150-450) k/uL MPV Neutrophils % % Lymphocytes % % Monocytes % % Eosinophils % % Basophils % % Neutrophils # (1.3-7.7) k/uL Lymphocytes # (1.0-4.8) k/uL Monocytes # (0-1.0) k/uL Eosinophils # (0-0.7) k/uL Basophils # (0-0.2) k/uL Hypochromasia Anisocytosis PT (10.0-12.5) sec INR (<1.2) APTT (22.0-30.0) sec Sodium (137-145) mmol/L Potassium (3.5-5.1) mmol/L Chloride (98-107) mmol/L Carbon Dioxide (22-30) mmol/L Anion Gap mmol/L BUN (9-20) mg/dL Creatinine (0.66-1.25) mg/dL Est GFR (CKD-EPI)AfAm (>60 ml/min/1.73 sqM) Est GFR (CKD-EPI)NonAf (>60 ml/min/1.73 sqM) Glucose (74-99) mg/dL Lactic Ac Sepsis Rflx Y Plasma Lactic Acid Juan Carlos 2.6 H* (0.7-2.0) mmol/L Calcium (8.4-10.2) mg/dL Total Bilirubin (0.2-1.3) mg/dL AST (17-59) U/L ALT (4-49) U/L Alkaline Phosphatase (38-126) U/L C-Reactive Protein (<1.0) mg/dL Total Protein (6.3-8.2) g/dL Albumin (3.5-5.0) g/dL - EKG Data -: EKG Interpreted by Me EKG Comments: EKG obtained as part of the sepsis workup EKG obtained at 2126 rate is 122 rhythm is a narrow complex irregular tachycardia there i does appear to be P waves before each QRS consistent with a sinus tachycardia with some rate variation. No acute ST elevations or depressions is no evidence of ischemia or infarction. Critical Care Time Critical Care Time: Yes Total Critical Care Time: 30 Critical Care Time: Critical Care Time Critical care time was exclusive of separately billable procedures and treating other patients and teaching time. Critical care was necessary to treat or prevent imminent or life-threatening d eterioration. Given the critical condition in which the patient arrived, the patient was immediately assessed by myself and the nurse, and cardiac monitoring initiated due to the potential for rapid decompensation of the patient's clinical condition. During the course of the patients stay, I spent a considerable amount of time at the bedside performing serial re-evaluations of the patient's hemod ynamic and clinical status because of the recognized potential threat to life or limb in this condition. I then had a chance to review not only all of the available current laboratory and radiographic studies obtained today, but I also reviewed old records available to me at the time. Additionally, any ancillary information available including cad application support specialist records were reviewed. Sequential vital signs were obtained. Disposition Clinical Impression: Osteomyelitis of lumbar spine, Discitis of lumbar region, CKD (chronic kidney disease), Obesity, Fall at home, Back pain Disposition: ADMITTED IP TO THIS HOSP Condition: Serious Is patient prescribed a controlled substance at d/c from ED?: No
[2023-06-22] MEDS ORDERED: MORPHINE SULFATE 4 MG/ML SYRINGE IVP STA (22:36)
--- NOTE | 2023-06-22 23:13 | XR ---
EXAM: XR Lumbosacral Spine, 2 or 3 Views CLINICAL HISTORY: ITS.REASON XR Reason: fall TECHNIQUE: Frontal and lateral views of the lumbar spine and sacrum. COMPARISON: No relevant prior studies available. FINDINGS: Vertebrae: Endplate lucency and erosive changes at L2-3. Discitis osteomyelitis can cause this appearance. No grossly evident acute fracture. Normal alignment. Disc spaces: Severe degenerative changes throughout the lumbar spine. Vasculature: Aortobiiliac atherosclerotic calcifications. IMPRESSION: 1. Endplate lucency and erosive changes at L2-3. The appearance is concerning for discitis osteomyelitis. Recommend cross-sectional imaging for further evaluation. 2. Severe degenerative changes throughout the lumbar spine. <MYCVCSECTION> Communications: 06/22/23 23:33 Verify Receipt Verified receipt with CARMEN Peña. Given to Dr. Lomax on 06/22 23:30 (-05:00)
--- NOTE | 2023-06-22 23:14 | XR ---
EXAM: XR Thoracic Spine, 2 Views CLINICAL HISTORY: ITS.REASON XR Reason: fall TECHNIQUE: Frontal and lateral views of the thoracic spine. COMPARISON: No relevant prior studies available. FINDINGS: Vertebrae: No radiographically evident fracture. Degenerative changes. Multilevel anterior osteophytes. Normal alignment. Pleural space: Right-sided pleural effusion. IMPRESSION: No radiographically evident fracture.
[2023-06-22] MEDS ORDERED: HYDROmorphone 0.5 MG/0.5 ML SYRINGE IVP STA (23:30)
[2023-06-22 23:47] LABS: Anisocytosis Slight; Basophils % (A) 0 %; Eosinophils # (A) 0.3 k/uL (0-0.7); Eosinophils % (A) 3 %; HCT 37.9 % (39.0-53.0); HGB 11.4 gm/dL (13.0-17.5); Hypochromasia Marked; Lymphocytes # (A) 1.3 k/uL (1.0-4.8); Lymphocytes % (A) 12 %; MCH 27.4 pg (25.0-35.0); MCHC 30.1 g/dL (31.0-37.0); Monocytes # (A) 0.6 k/uL (0-1.0); Monocytes % (A) 6 %; Neutrophils # (A) 8.6 k/uL (1.3-7.7); Neutrophils % (A) 79 %; Platelet Count 469 k/uL (150-450); RBC 4.16 m/uL (4.30-5.90); RDW 16.9 % (11.5-15.5); WBC 10.9 k/uL (3.8-10.6)
[2023-06-22 23:59] LABS: ALT 11 U/L (4-49); AST 27 U/L (17-59); African American GFR (CKD) 70 (>60 ml/min/1.73 sqM); Albumin 2.2 g/dL (3.5-5.0); Alkaline Phosphatase 136 U/L (38-126); Anion Gap 7 mmol/L; Blood Urea Nitrogen 30 mg/dL (9-20); C Reactive Protein 2.7 mg/dL (<1.0); Calcium 8.3 mg/dL (8.4-10.2); Carbon Dioxide 24 mmol/L (22-30); Chloride 106 mmol/L (98-107); Glucose 123 mg/dL (74-99); Non-African American GFR(CKD) 60 (>60 ml/min/1.73 sqM); Potassium 4.9 mmol/L (3.5-5.1); Sodium 137 mmol/L (137-145); Total Bilirubin 0.3 mg/dL (0.2-1.3); Total Protein 6.3 g/dL (6.3-8.2)
[2023-06-23 00:31] LABS: MCV 91.1 fL (80.0-100.0)
[2023-06-23] MEDS ORDERED: HYDROmorphone 0.5 MG/0.5 ML SYRINGE IVP STA (00:50)
[2023-06-23 01:12] LABS: INR 1.1 (<1.2); Partial Thromboplastin Time 29.2 sec (22.0-30.0); Prothrombin Time 11.7 sec (10.0-12.5)
--- NOTE | 2023-06-23 02:30 | CT ---
EXAM: CT Thoracic Spine Without Intravenous Contrast CLINICAL HISTORY: ITS.REASON CT Reason: abnormal xray TECHNIQUE: Axial computed tomography images of the thoracic spine without intravenous contrast. CTDI is 20 mGy and DLP is 1189.75 mGy-cm. This CT exam was performed using one or more of the following dose reduction techniques: automated exposure control, adjustment of the mA and/or kV according to patient size, and/or use of iterative reconstruction technique. COMPARISON: No relevant prior studies available. FINDINGS: Vertebrae: No acute fracture. No subluxation. Discs/spinal canal/neural foramina: Mild degenerative changes. Soft tissues: Large right and mild left pleural effusion. IMPRESSION: No acute findings in the thoracic spine. Large right and mild left pleural effusion. EXAM: CT Lumbar Spine Without Intravenous Contrast CLINICAL HISTORY: ITS.REASON CT Reason: abnormal xray TECHNIQUE: Axial computed tomography images of the lumbar spine without intravenous contrast. CTDI is 20 mGy and DLP is 1189.75 mGy-cm. This CT exam was performed using one or more of the following dose reduction techniques: automated exposure control, adjustment of the mA and/or kV according to patient size, and/or use of iterative reconstruction technique. COMPARISON: No relevant prior studies available. FINDINGS: Vertebrae: Opposing endplate irregularity and lytic changes at L2-3. Mild retropulsion. Discs/spinal canal/neural foramina: Mild spinal canal stenosis L2-3 and L4-5 from degenerative changes.. Soft tissues: Severe stool distention at the rectosigmoid colon. Colonic diverticulosis.. IMPRESSION: Findings suspicious for discitis osteomyelitis at L2-3.
[2023-06-23] MEDS ORDERED: VANCOMYCIN IV PER PHARMACY 1 EACH MISC MISCELLANE PRN (02:51)
[2023-06-23] MEDS ORDERED: NALOXONE 0.4 MG/ML 1 ML VIAL IV PRN (02:53)
[2023-06-23] MEDS ORDERED: ONDANSETRON 4 MG/2 ML VIAL IVP PRN (02:53)
[2023-06-23] MEDS ORDERED: HYDROmorphone 0.5 MG/0.5 ML SYRINGE IVP PRN ×2 (02:53→15:18)
[2023-06-23] MEDS ORDERED: CEFEPIME 2 GM in SODIUM CHLORIDE 0.9% 100 ML IVPB STA (02:55)
[2023-06-23] MEDS ORDERED: VANCOMYCIN 1,500 MG in SODIUM CHLORIDE 0.9% 500 ML 500 ML IVPB STA (02:57)
[2023-06-23] MEDS ORDERED: METOPROLOL TARTRATE 5 MG/5 ML VIAL IVP ONE (03:01)
[2023-06-23] MEDS ORDERED: METOPROLOL SUCCINATE (ER) 25 MG TAB.ER.24H PO STA (03:03)
[2023-06-23] MEDS: HYDROmorphone 1 MG/ML 1 ML SYRINGE IVP PRN ×3 (04:04→11:11)
--- NOTE | 2023-06-23 08:33 | XR ---
EXAMINATION TYPE: XR chest 1V DATE OF EXAM: 06/23/2023 COMPARISON: 03/24/2023 HISTORY: Shortness of breath TECHNIQUE: Single frontal view of the chest is obtained. FINDINGS: Bilateral consolidation and pleural effusion. The right. Right-sided central dialysis cath eter. Hypertrophic degenerative changes of spine pneumothorax. Arthropathy of the shoulders. Atherosc lerotic change aorta. IMPRESSION: Bilateral pleural effusion and consolidation slightly improved from prior exam
[2023-06-23 08:48] LABS: Glucose,Whole Blood 134 mg/dL (70-110)
[2023-06-23] MEDS ORDERED: CEFEPIME 2 GM in SODIUM CHLORIDE 0.9% 100 ML IVPB SCH (11:00)
[2023-06-23] MEDS ORDERED: CEFEPIME 2 GM in SODIUM CHLORIDE 0.9% 50 ML IVPB SCH (11:00)
[2023-06-23] MEDS: CEFEPIME 2 GM in SODIUM CHLORIDE 0.9% 100 ML IVPB SCH (11:10)
--- NOTE | 2023-06-23 11:13 | P.NPCON ---
History of Present Illness - Reason for Consult acute renal failure - History of Present Illness Reason for consultation: Acute kidney injury History of present illness: Patient is a 67-year-old male seen in renal consultation for acute kidney injury. Patient developed acute kidney injury due to ATN from hypotension and cardiorenal syndrome in February 2023 and was started on hemodialysis. Subsequently renal function improved and dialysis was discontinued. Patient's last hemodialysis was 05/20/2023. Patient was scheduled to get his permacath removed 06/24/2023. 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 Patient's creatinine on admission yesterday was 1.22. He is maintained on oral torsemide. Admits to good urine output. No hematuria or dysuria. Patient came to the hospital after he sustained a fall while going to the bathroom. Patient states he did bump his head on the wall but denies losing consciousness. Thoracic spine CT showed no acute findings. Pleural effusions were noted. Possible discitis and osteomyelitis at L2-L3 were noted. Kidney ultrasound from February 2023 showed no evidence of hydronephrosis. Patient has history of diastolic CHF. Patient has history of diabetes. No history of coronary artery disease. No vomiting or diarrhea. Oral intake fair. Vital signs are stable. General: No acute distress. HEENT: Head exam is unremarkable. On room air. LUNGS: No audible rhonchi or wheezes. HEART: Rate and Rhythm are regular. ABDOMEN: Nontender. EXTREMITITES: Trace edema. Past Medical History Past Medical History: Atrial Fibrillation, Heart Failure, Diabetes Mellitus, Deep Vein Thrombosis (DVT), Hypertension, Osteoarthritis (OA), Prostate Disorder Additional Past Medical History / Comment(s): back pain, MRI scheduled for 10/28/22 History of Any Multi-Drug Resistant Organisms: None Reported Past Surgical History: Orthopedic Surgery Additional Past Surgical History / Comment(s): bilateral total hip replacement. 2007 .05-12-16 TOTAL RIGHT HIP REPLACEMENT. RT KNEE SX. RT SHOULDER SX. COLONOSCOPY Past Anesthesia/Blood Transfusion Reactions: No Reported Reaction Past Psychological History: No Psychological Hx Reported Smoking Status: Former smoker Past Alcohol Use History: None Reported Past Drug Use History: None Reported - Past Family History Mother Family Medical History: Diabetes Mellitus Father Additional Family Medical History / Comment(s): FROM SPINAL MENNINGITIS Medications and Allergies Home Medications Medication Instructions Recorded Confirmed Type Aspirin EC [Ecotrin Low Dose] 81 mg PO DAILY@189910/20/22 06/22/23 History Atorvastatin [Lipitor] 40 mg PO DAILY@189910/20/22 06/22/23 History Cholecalciferol [Vitamin D3 (125 125 mcg PO DAILY@189910/20/22 06/22/23 History Mcg = 5000 Iu)] Tamsulosin [Flomax] 0.4 mg PO DAILY@189910/20/22 06/22/23 History Vitamin B Complex 1 cap PO DAILY@189902/24/23 06/22/23 History Acetaminophen Tab [Tylenol] 650 mg PO Q6HR PRN tab 03/31/23 06/22/23 Rx Melatonin 5 mg PO HS PRN tab 03/31/23 06/22/23 Rx Sodium Chloride 0.65% Nasal [Deep 2 spray NASAL QID PRN ml 03/31/23 06/22/23 Rx Sea (Saline)] Cyclobenzaprine [Flexeril] 5 mg PO TID@0700,1500,2300 06/22/23 06/22/23 History HYDROcodone/APAP 5-325MG [[place] 1 tab PO Q6H PRN 06/22/23 06/22/23 History 5-325] Magnesium Oxide [Mag-Ox] 400 mg PO BID@0700,189906/22/23 06/22/23 History Metoprolol Succinate [Metoprolol 25 mg PO DAILY@189906/22/23 06/22/23 History Succinate ER] Midodrine HCl [ProAmantine] 2.5 mg PO TID@0700,1500,2300 06/22/23 06/22/23 History Potassium Chloride ER [K-Dur 10] 10 meq PO DAILY@189906/22/23 06/22/23 History Rivaroxaban [Xarelto] 20 mg PO DAILY@189906/22/23 06/22/23 History Thiamine [Vitamin B-1] 100 mg PO DAILY@189906/22/23 06/22/23 History Torsemide [Demadex] 40 mg PO BID@0700,1900 06/22/23 06/22/23 History Allergies Allergy/AdvReac Type Severity Reaction Status Date / Time Penicillins Allergy Rash/Hives Verified 06/22/23 22:52 ibuprofen AdvReac BURING Verified 06/22/23 22:52 SENSATION IN ARMS Physical Exam Vitals: Vital Signs Pulse Resp BP Pulse Ox 06/23/23 10:00 98 18 115/74 95 06/23/23 09:00 105 H 18 120/74 98 06/23/23 07:49 101 H 18 116/70 94 L 06/23/23 06:12 100 19 115/68 96 06/23/23 03:22 101 H 19 118/82 96 06/23/23 01:52 151 H 19 101/83 94 L 06/23/23 00:34 116 H 19 127/79 98 06/22/23 23:36 117 H 20 120/70 100 06/22/23 21:14 122 H 19 154/86 98 Intake and Output 06/22/23 06/23/23 06/23/23 22:59 06:59 14:59 Other: Weight 90.718 kg Results - Lab Results Most recent lab results Calcium 8.3 mg/dL (8.4-10.2) L 06/22/23 23:38 06/22/23 23:38 06/22/23 23:38 Assessment and Plan Plan: Assessment: 1. Acute kidney injury secondary to ATN secondary to cardiorenal syndrome. Patient was started on hemodialysis in February 2023 and last treatment was 05/20/2023. Creatinine on admission was 1.22. 2. 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 Patient did not follow-up with oncology outpatient. 3. Acute on chronic diastolic CHF. 4. Questionable discitis/osteomyelitis noted on CAT scan. ID consulted. 5. Volume overload. Plan: Resume torsemide. Add SGLT2i. Low-salt diet and 1500 mL fluid restriction. Consult heme/onc for ?MM. Avoid nephrotoxins. Continue to monitor renal function and urine output. If renal function remains stable, will discontinue permacath prior to discharge. Thank you for the consultation. I will continue to follow the patient with you during his hospital stay.
[2023-06-23] MEDS: DAPAGLIFLOZIN PROPANEDIOL 5 MG TABLET PO SCH (11:49)
[2023-06-23 12:17] LABS: Glucose,Whole Blood 118 mg/dL (70-110)
[2023-06-23] MEDS ORDERED: SODIUM CHLORIDE 0.65% NASAL SPRAY 44 ML BTL NASAL PRN (13:35)
[2023-06-23] MEDS ORDERED: MELATONIN 5 MG TABLET PO PRN (13:35)
[2023-06-23] MEDS ORDERED: ACETAMINOPHEN TAB 325 MG TAB PO PRN (13:35)
[2023-06-23] MEDS ORDERED: DEXTROSE 50% SYRINGE 50 ML IVP PRN ×2 (14:03)
[2023-06-23] MEDS: HYDROmorphone 0.5 MG/0.5 ML SYRINGE IVP PRN ×3 (14:40→21:56)
--- NOTE | 2023-06-23 14:42 | CT ---
EXAMINATION TYPE: CT abdomen pelvis wo con DATE OF EXAM: 06/23/2023 COMPARISON: None HISTORY: fall CT DLP: 1436.2 mGycm Examination of the solid and hollow viscera is limited given the lack of contrast. FINDINGS: LUNG BASES: Right infrahilar masslike density with right-sided moderate pleural effusion. Smaller lef t-sided pleural effusion. LIVER/GB: The gallbladder is unremarkable. No space-occupying hepatic lesion. PANCREAS: No pancreatic mass identified. No inflammatory process seen. SPLEEN: No evidence for splenomegaly. No intrasplenic lesions seen. ADRENALS: No adrenal nodules identified. No evidence for thickening. KIDNEYS: No evidence for renal mass. No nephrolithiasis. No hydronephrosis. BOWEL: Appendix has a normal appearance. No evidence of bowel obstruction. No inflammatory process. Lymph nodes: No evidence for adenopathy greater than 1 cm. Abdominal aorta: Atheromatous changes seen. No evidence for aneurysm. Genital organs: No significant abnormality. Osseous structures: Destructive process involving the inferior endplate of L2 and the superior endpla te of L3 could reflect discitis and/or osteomyelitis. Paraspinal stranding particularly on the right where there is increased attenuation noted. Mild loss of height superior endplate of L1 is of uncerta in age and/or etiology. IMPRESSION: 1.Destructive process involving the inferior endplate of L2 and the superior endplate of L3 could ref lect discitis and/or osteomyelitis. Paraspinal stranding particularly on the right where there is inc reased attenuation noted. Epidural narrowing suggested. MRI of the lumbar spine with and without cont rast recommended. 2. Increased density right infrahilar region with moderate right-sided pleural effusion. Dedicated CT of the chest with contrast is recommended.
[2023-06-23] MEDS: PANTOPRAZOLE 40 MG TABLET PO SCH (15:56)
[2023-06-23] MEDS: MIDODRINE 5 MG TAB PO SCH ×3 (15:56→22:05)
[2023-06-23] MEDS: CYCLOBENZAPRINE 5 MG TAB PO SCH ×2 (15:56→21:56)
[2023-06-23] MEDS: TORSEMIDE 20 MG TAB PO SCH (15:56)
--- NOTE | 2023-06-23 18:10 | HP ---
HISTORY AND PHYSICAL CHIEF COMPLAINT: Fall and back pain. HISTORY OF PRESENT ILLNESS: This is a 67-year-old gentleman with a past medical history of multiple medical problems including recent Enterococcus faecalis bacteremia and renal failure. He was sent to [facility]. The patient improved significantly. The patient's walking is better, but yesterday, the patient fell, and the patient came to [facility]. Evaluation showed possible diskitis the L2-L3 region, and the patient was admitted for further evaluation and treatment. There is no history of any fever, rigor, or chills. Broad-spectrum antibiotics have been initiated. PAST MEDICAL HISTORY: Reviewed includes recent bacteremia, renal failure, dialysis stopped. Rest of the history and rest of the chart are also reviewed. HOME MEDICATIONS: Reviewed, KCl. Doses and rest of the medications are reviewed. ALLERGIES: Metformin. FAMILY HISTORY: History of meningitis in the family. SOCIAL HISTORY: Previous history of smoking. REVIEW OF SYSTEMS: Fourteen-point review is negative except as mentioned earlier. PHYSICAL EXAMINATION: VITAL SIGNS: Pulse is 105, blood pressure 120/75, respirations 18. HEENT: Conjunctivae are normal. NECK: No jugular venous distention. CARDIOVASCULAR: S1 and S2. RESPIRATORY: Breath sounds diminished at the bases. ABDOMEN: Soft. Obese. LEGS: No edema. No swelling. NERVOUS SYSTEM: No focal deficits. SKIN: No ulcers or rashes. JOINTS: No active deforming arthropathy. BACK: Slightly tender. LABORATORY DATA: Reviewed. WBC 10.9. Rest of the labs are reviewed. ASSESSMENT: 1. Fall and severe back pain with possibly L2-L3 osteomyelitis or diskitis. Rule out malignancy. 2. History of recent Enterococcus faecalis bacteremia/sepsis. 3. Elevated lactic acid. 4. Possible sepsis present on admission. 5. Gait dysfunction. 6. Atrial fibrillation. 7. Congestive heart failure. 8. Diabetes mellitus, type 2. 9. History of deep venous thrombosis. 10.Multiple complex medical issues. RECOMMENDATIONS AND DISCUSSION: In this 67-year-old gentleman presented with multiple complex medical issues, we will monitor the patient closely. We will initiate broad-spectrum IV antibiotics, obtain cultures, Infectious Disease evaluation. I would also recommend Orthopedic evaluation. Bone scan also will be obtained. Cultures will be obtained. Resume the home medications. Monitor blood sugars closely. Overall prognosis is guarded because of multiple complex medical issues. Further recommendations to follow. See orders for the details. CT scan reviewed personally. I discussed with family at length. MMODL / IJN: [id number] /
[2023-06-23] MEDS: INSULIN ASPART (NovoLOG) 100 UNIT/ML VIAL SQ SCH ×2 (18:28→21:34)
[2023-06-23] MEDS: CHOLECALCIFEROL 125 MCG (5000 IU) TABLET PO SCH (19:40)
[2023-06-23] MEDS: ATORVASTATIN 40 MG TAB PO SCH (19:40)
[2023-06-23] MEDS: ASPIRIN 81 MG PO SCH (19:40)
[2023-06-23] MEDS: THIAMINE 100 MG TAB PO SCH (19:40)
[2023-06-23] MEDS: TAMSULOSIN 0.4 MG CAP.ER.24H PO SCH (19:40)
[2023-06-23] MEDS: POTASSIUM CHLORIDE ER 10 MEQ TAB.ER.PRT PO SCH (19:40)
[2023-06-23] MEDS: RIVAROXABAN 20 MG TAB PO SCH (19:41)
[2023-06-23] MEDS: MAGNESIUM OXIDE 400 MG TAB PO SCH (19:41)
[2023-06-23] MEDS: HYDROcodone/APAP 5-325MG 1 EACH TAB PO PRN (19:42)
[2023-06-23] MEDS: METOPROLOL SUCCINATE (ER) 25 MG TAB.ER.24H PO SCH (19:47)
[2023-06-23] MEDS ORDERED: VANCOMYCIN 1,500 MG in SODIUM CHLORIDE 0.9% 500 ML 500 ML IVPB SCH (20:00)
[2023-06-23] MEDS: VITAMIN B COMPLEX PO SCH (21:09)
[2023-06-23 21:12] LABS: Glucose,Whole Blood 148 mg/dL (70-110)
[2023-06-24] MEDS: HYDROcodone/APAP 5-325MG 1 EACH TAB PO PRN ×3 (01:57→13:52)
[2023-06-24] MEDS: CEFEPIME 2 GM in SODIUM CHLORIDE 0.9% 100 ML IVPB SCH (01:58)
[2023-06-24] MEDS: HYDROmorphone 0.5 MG/0.5 ML SYRINGE IVP PRN ×3 (03:11→10:17)
[2023-06-24] MEDS: MIDODRINE 5 MG TAB PO SCH ×2 (06:11→13:18)
[2023-06-24] MEDS: PANTOPRAZOLE 40 MG TABLET PO SCH (06:13)
[2023-06-24] MEDS: MAGNESIUM OXIDE 400 MG TAB PO SCH ×2 (06:14→17:59)
[2023-06-24] MEDS: CYCLOBENZAPRINE 5 MG TAB PO SCH ×2 (06:14→15:22)
[2023-06-24 06:49] LABS: Glucose,Whole Blood 126 mg/dL (70-110)
--- NOTE | 2023-06-24 07:38 | P.CONS ---
History of Present Illness - Reason for Consult Consult date: 06/23/23 - History of Present Illness Patient is a 67-year-old male with a past medical history significant for diabetes mellitus hypertension prostate disorder atrial fibrillation, patient also have a history of Enterococcus faecalis bacteremia in February 2023 related to the urinary source patient did have a dialysis catheter was suspicious and was discontinued and also have a HERIBERTO that was negative for any endocarditis patient completed course of antibiotic therapy and the patient seemed to be was doing well and mention he did have improvement in his kidney function and last dialysis was about a month ago and his dialysis cath was supposed to be discontinued he still have it patient now presenting to the hospital when he lost his balance and did fell down patient fell backwards landing on his right side against the wall and the patient say he laid on the floor for an hour patient subsequently was brought into the ER on presentation to the hospital patient was afebrile patient did have iron of 10.9 creatinine is 1.22 liver exams are normal patient did have a thoracolumbar spine CT opposing endplate irregularity and lytic changes at L2-3 concerning for possible discitis osteomyelitis at that level chest x-ray with bilateral effusion and consolidation patient was started on cefepime and vancomycin infectious disease was consulted for further management of antibiotic therapy concerning for lumbar discitis Past Medical History Past Medical History: Atrial Fibrillation, Heart Failure, Diabetes Mellitus, Deep Vein Thrombosis (DVT), Hypertension, Osteoarthritis (OA), Prostate Disorder Additional Past Medical History / Comment(s): back pain, MRI scheduled for 10/28/22 History of Any Multi-Drug Resistant Organisms: None Reported Past Surgical History: Orthopedic Surgery Additional Past Surgical History / Comment(s): bilateral total hip replacement. 200705-12-16 TOTAL RIGHT HIP REPLACEMENT. RT KNEE SX. RT SHOULDER SX. COLONOSCOPY Past Anesthesia/Blood Transfusion Reactions: No Reported Reaction Past Psychological History: No Psychological Hx Reported Smoking Status: Former smoker Past Alcohol Use History: None Reported Past Drug Use History: None Reported - Past Family History Mother Family Medical History: Diabetes Mellitus Father Additional Family Medical History / Comment(s): FROM SPINAL MENNINGITIS Medications and Allergies Home Medications Medication Instructions Recorded Confirmed Type Aspirin EC [Ecotrin Low Dose] 81 mg PO DAILY@189910/20/22 06/22/23 History Atorvastatin [Lipitor] 40 mg PO DAILY@189910/20/22 06/22/23 History Cholecalciferol [Vitamin D3 (125 125 mcg PO DAILY@189910/20/22 06/22/23 History Mcg = 5000 Iu)] Tamsulosin [Flomax] 0.4 mg PO DAILY@189910/20/22 06/22/23 History Vitamin B Complex 1 cap PO DAILY@189902/24/23 06/22/23 History Acetaminophen Tab [Tylenol] 650 mg PO Q6HR PRN tab 03/31/23 06/22/23 Rx Melatonin 5 mg PO HS PRN tab 03/31/23 06/22/23 Rx Sodium Chloride 0.65% Nasal [Deep 2 spray NASAL QID PRN ml 03/31/23 06/22/23 Rx Sea (Saline)] Cyclobenzaprine [Flexeril] 5 mg PO TID@0700,1500,2300 06/22/23 06/22/23 History HYDROcodone/APAP 5-325MG [Calder 1 tab PO Q6H PRN 06/22/23 06/22/23 History 5-325] Magnesium Oxide [Mag-Ox] 400 mg PO BID@0700,0 06/22/23 06/22/23 History Metoprolol Succinate [Metoprolol 25 mg PO DAILY@189906/22/23 06/22/23 History Succinate ER] Midodrine HCl [ProAmantine] 2.5 mg PO TID@0700,1500,2300 06/22/23 06/22/23 History Potassium Chloride ER [K-Dur 10] 10 meq PO DAILY@189906/22/23 06/22/23 History Rivaroxaban [Xarelto] 20 mg PO DAILY@189906/22/23 06/22/23 History Thiamine [Vitamin B-1] 100 mg PO DAILY@189906/22/23 06/22/23 History Torsemide [Demadex] 40 mg PO BID@0700,1900 06/22/23 06/22/23 History Allergies Allergy/AdvReac Type Severity Reaction Status Date / Time metformin Allergy Diarrhea Verified 06/23/23 11:15 Penicillins Allergy Rash/Hives Verified 06/22/23 22:52 ibuprofen AdvReac BURING Verified 06/22/23 22:52 SENSATION IN ARMS Physical Exam Vitals: Vital Signs Pulse Resp BP Pulse Ox 06/23/23 10:00 98 18 115/74 95 06/23/23 09:00 105 H 18 120/74 98 06/23/23 07:49 101 H 18 116/70 94 L 06/23/23 06:12 100 19 115/68 96 06/23/23 03:22 101 H 19 118/82 96 06/23/23 01:52 151 H 19 101/83 94 L 06/23/23 00:34 116 H 19 127/79 98 06/22/23 23:36 117 H 20 120/70 100 06/22/23 21:14 122 H 19 154/86 98 Intake and Output 06/22/23 06/23/23 06/23/23 22:59 06:59 14:59 Other: Weight 90.718 kg Results CBC & Chem 7: 06/22/23 23:38 06/22/23 23:38 Labs: Abnormal Lab Results - Last 24 Hours (Table) 06/22/23 06/22/23 06/22/23 Range/Units 23:38 23:38 23:38 WBC 10.9 H (3.8-10.6) k/uL RBC 4.16 L (4.30-5.90) m/uL Hgb 11.4 L (13.0-17.5) gm/dL Hct 37.9 L (39.0-53.0) % MCHC 30.1 L (31.0-37.0) g/dL RDW 16.9 H (11.5-15.5) % Plt Count 469 H (150-450) k/uL Neutrophils # 8.6 H (1.3-7.7) k/uL BUN 30 H (9-20) mg/dL Glucose 123 H (74-99) mg/dL POC Glucose (mg/dL) (70-110) mg/dL Plasma Lactic Acid Juan Carlos 2.6 H* (0.7-2.0) mmol/L Calcium 8.3 L (8.4-10.2) mg/dL Alkaline Phosphatase 136 H (38-126) U/L C-Reactive Protein 2.7 H (<1.0) mg/dL Albumin 2.2 L (3.5-5.0) g/dL Procalcitonin (0.02-0.09) ng/mL 06/22/23 06/23/23 06/23/23 Range/Units 23:38 08:47 12:15 WBC (3.8-10.6) k/uL RBC (4.30-5.90) m/uL Hgb (13.0-17.5) gm/dL Hct (39.0-53.0) % MCHC (31.0-37.0) g/dL RDW (11.5-15.5) % Plt Count (150-450) k/uL Neutrophils # (1.3-7.7) k/uL BUN (9-20) mg/dL Glucose (74-99) mg/dL POC Glucose (mg/dL) 134 H 118 H (70-110) mg/dL Plasma Lactic Acid Juan Carlos (0.7-2.0) mmol/L Calcium (8.4-10.2) mg/dL Alkaline Phosphatase (38-126) U/L C-Reactive Protein (<1.0) mg/dL Albumin (3.5-5.0) g/dL Procalcitonin 0.46 H (0.02-0.09) ng/mL Assessment and Plan Plan: 1patient presented to hospital with weakness fall lower back pain noticed to have a significant abnormality to the lumbar spine concerning for possible discitis and osteomyelitis however patient is afebrile and did have a normal white count with abnormality seen possibly due to trauma however underlying osteomyelitis not excluded as patient did have risk factor of dialysis catheter 2-we will recommend CT-guided aspiration of the area for microbiological diagnosis 3-check inflammatory markers 4-dialysis catheter if continues should be discontinued and tip sent for the culture 5-we will empirically treat with vancomycin and cefepime awaiting further work- up to be completed We will follow on clinical condition and cultures to further adjust medication if needed Thank you for this consultation we will follow the patient along with you Dictation was produced using [employer] dictation software. please excuse any grammatical, word or spelling errors. Time with Patient: Greater than 30
[2023-06-24] MEDS: INSULIN ASPART (NovoLOG) 100 UNIT/ML VIAL SQ SCH ×3 (07:40→17:31)
--- NOTE | 2023-06-24 09:08 | CT ---
EXAMINATION TYPE: CT guided aspiration DATE OF EXAM: 06/23/2023 COMPARISON: 06/23/2023 HISTORY: CT L2 guided aspiration CT DLP: 1630 mGycm The procedure is discussed with the patient, the risks, complications, benefits and alternatives, wer e discussed and any questions were answered. Informed consent was obtained. The patient is placed p kvng on the CT table, prepped and draped in the usual sterile fashion. Utilizing a 18-gauge needle access into L2-L3 disc space was achieved as aspiration small amount flui d. Pathology pending. All elements of maximal barrier and sterile technique were utilized. The manuel ent remained stable throughout the procedure with no immediate postprocedural complication. IMPRESSION: 1. Successful CT guided disc space aspiration
[2023-06-24] MEDS: DAPAGLIFLOZIN PROPANEDIOL 5 MG TABLET PO SCH (09:10)
[2023-06-24] MEDS: TORSEMIDE 20 MG TAB PO SCH ×2 (09:10→15:31)
[2023-06-24 09:36] VITALS: RESP 19; TEMP 97.5
[2023-06-24] MEDS ORDERED: HYDROmorphone 0.5 MG/0.5 ML SYRINGE IVP STA (10:38)
--- NOTE | 2023-06-24 10:48 | US ---
EXAMINATION TYPE: US chest DATE OF EXAM: 06/24/2023 COMPARISON: NONE CLINICAL INDICATION: Male, 67 years old with history of Markings for thoracentesis by pulmonary staff ; TECHNIQUE: Targeted ultrasound of the posterior lower bilateral hemithoraces EXAM MEASUREMENTS: Right Pleural Effusion pocket size: 5.4 cm Right skin surface to fluid distance: 4.7 cm Left Pleural Effusion pocket size: na cm Left skin surface to fluid distance: na cm Right side marked for possible thoracentesis outside the dept. Pulmonologists are able to review the images in the patient?s EMR. patient not able to sit for exam - patient scanned in the RLD position - potential inaccurate thorace ntesis marking IMPRESSIONS: 1. Small right pleural effusion 2. Tiny left pleural effusion
--- NOTE | 2023-06-24 10:50 | P.PN ---
Subjective Patient is seen in follow-up for acute kidney injury. Creatinine 1.22 yesterday. Has been voiding. Require straight catheterization with almost 1 L drained. No vomiting or diarrhea. Scheduled CT of the chest today. Vital signs are stable. General: No acute distress. HEENT: Head exam is unremarkable. LUNGS: No audible rhonchi or wheezes. HEART: Rate and Rhythm are regular. ABDOMEN: Nontender. EXTREMITITES: Trace edema. Objective - Vital Signs Vital signs: Vital Signs Temp 97.5 F L 06/24/23 07:28 Pulse 93 06/24/23 07:28 Resp 19 06/24/23 07:28 BP 120/72 06/24/23 07:28 Pulse Ox 95 06/24/23 07:28 FiO2 Intake & Output 06/23/23 06/24/23 06/24/23 18:59 06:59 18:59 Output Total 800 Balance -800 Weight 90.718 kg Output: Urine 800 Other: # Voids 3 - Labs CBC & Chem 7: 06/22/23 23:38 06/22/23 23:38 Labs: Abnormal Lab Results - Last 24 Hours (Table) 06/23/23 06/23/23 06/23/23 Range/Units 12:15 14:59 14:59 ESR 97 H (0-20) mm/Hr POC Glucose (mg/dL) 118 H (70-110) mg/dL C-Reactive Protein 5.9 H (<1.0) mg/dL Procalcitonin (0.02-0.09) ng/mL 06/23/23 06/23/23 06/24/23 Range/Units 14:59 21:11 06:48 ESR (0-20) mm/Hr POC Glucose (mg/dL) 148 H 126 H (70-110) mg/dL C-Reactive Protein (<1.0) mg/dL Procalcitonin 0.81 H (0.02-0.09) ng/mL Microbiology - Last 24 Hours (Table) 06/23/23 15:57 Gram Stain - Preliminary Aspirate Body Fluid Culture - Preliminary 06/22/23 23:50 Blood Culture Gram Stain - Preliminary Blood 06/22/23 23:35 Blood Culture Gram Stain - Preliminary Blood Assessment and Plan Plan: Assessment: 1. Acute kidney injury secondary to ATN secondary to cardiorenal syndrome. Patient was started on hemodialysis in February 2023 and last treatment was 05/20/2023. Creatinine on admission was 1.22. 2. 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 Patient did not follow-up with oncology outpatient. Consulted this admission. 3. Acute on chronic diastolic CHF. 4. Questionable discitis/osteomyelitis noted on CAT scan. Blood cultures positive for gram-positive cocci. Also has permacath. ID following. 5. Volume overload. 6. Urinary retention. On Flomax. Plan: Maintain torsemide. Maintain SGLT2i. Low-salt diet and 1500 mL fluid restriction. Avoid nephrotoxins. Continue to monitor renal function and urine output. Discontinue permacath and sent tip for culture. Continue to monitor postvoid residuals and insert Barkley catheter if greater than 300 mL urine present. Follow-up CT of the chest. May need thoracentesis. Discussed with pulmonology.
[2023-06-24 11:57] LABS: Glucose,Whole Blood 133 mg/dL (70-110)
[2023-06-24 13:39] LABS: Appearance,Urine Clear (Clear); Bilirubin,Urine Negative (Negative); Blood,Urine Small (Negative); Color,Urine Colorless; Glucose,Urine (UA) 3+ (Negative); Granular Casts,Urine 3 /lpf (0); Hyaline Casts,Urine 1 /lpf (0-2); Ketones,Urine Negative (Negative); Leukocyte Esterase,Urine Negative (Negative); Mucus,Urine Rare /hpf; Nitrite,Urine Negative (Negative); Protein,Urine 2+ (Negative); RBC,Urine 1 /hpf (0-5); Specific Gravity,Urine 1.009 (1.001-1.035); Urobilinogen,Urine <2.0 mg/dL (<2.0); WBC,Urine 1 /hpf (0-5)
[2023-06-24 13:44] LABS: ALT 14 U/L (4-49); African American GFR (CKD) 80 (>60 ml/min/1.73 sqM); Albumin 1.9 g/dL (3.5-5.0); Albumin/Globulin Ratio 0.5; Anion Gap 7 mmol/L; Blood Urea Nitrogen 29 mg/dL (9-20); Calcium 7.6 mg/dL (8.4-10.2); Carbon Dioxide 19 mmol/L (22-30); Chloride 105 mmol/L (98-107); Globulin 3.7 g/dL; Glucose 139 mg/dL (74-99); Non-African American GFR(CKD) 69 (>60 ml/min/1.73 sqM); Sodium 131 mmol/L (137-145); Total Bilirubin 0.3 mg/dL (0.2-1.3); Total Protein 5.6 g/dL (6.3-8.2)
[2023-06-24 13:47] LABS: AST 37 U/L (17-59); Alkaline Phosphatase 121 U/L (38-126); Magnesium 2.1 mg/dL (1.6-2.3); Potassium 4.4 mmol/L (3.5-5.1)
[2023-06-24] MEDS ORDERED: LORazepam 2 MG/ML INJ IV STA (13:47)
[2023-06-24] MEDS ORDERED: CEFEPIME 2 GM in SODIUM CHLORIDE 0.9% 100 ML IVPB SCH (14:00)
[2023-06-24] MEDS ORDERED: MAGNESIUM HYDROXIDE 2,400 MG/30 ML CUP PO PRN (14:22)
[2023-06-24] MEDS ORDERED: bisacodyL 10 MG SUPP RECTAL PRN (14:22)
[2023-06-24] MEDS ORDERED: VANCOMYCIN 1,500 MG in SODIUM CHLORIDE 0.9% 500 ML 500 ML IVPB SCH (15:00)
[2023-06-24] MEDS: HYDROmorphone 1 MG/ML 1 ML SYRINGE IVP PRN ×2 (15:23→18:36)
--- NOTE | 2023-06-24 15:37 | P.CNPUL ---
History of Present Illness Consult date: 06/24/23 Requesting physician: Giovani Gardner Reason for consult: abnormal CXR/CT Chief complaint: Fall, trauma History of present illness: This is a 67-year-old male patient with a history of atrial fibrillation anticoagulated with Xarelto, congestive heart failure, diabetes mellitus, DVT, hypertension, prostate disorder, former smoker. He presented to the emergency room on 06/22/2023 after sustaining a fall at home after tripping while walking with his walker. He did sustain some right-sided injuries. Lumbosacral spine x-rays revealed an endplate lucency and erosive changes at L2-3. 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 Severe degenerative changes throughout the spine. No evidence of fracture. Computed tomography scan of the spine also revealed suspicious findings for discitis osteomyelitis at L2-3. X-ray revealed bilateral consolidation and pleural effusion. Right-sided central dialysis catheter in place. Ultrasound of the chest revealed a 5.4 cm pocket on the righ t. No fluid on the left. Not significant enough for thoracentesis. Sodium 131. Potassium 4.4. Bicarb 19. BUN 29. Creatinine 1.09. Glucose 139. White count 10.9. Hemoglobin 11.4. Platelets 469. ESR 97. Pro-calcitonin 0.81. He is seen today in consultation on the regular medical floor. Currently sitting up in a chair. Awake and alert in no acute distress. He is maintaining good O2 saturations in the mid 90s on room air. He's been afebrile. Hemodynamically stable. He's on antibiotics in the form of cefepime and vancomycin. Fine- needle aspirate of the L2-L3 disc space was performed by interventional radiology. Fluid analysis and pathology pending. Review of Systems REVIEW OF SYSTEMS: CONSTITUTIONAL: Denies any recent significant weight loss or weight gain. EYES: Denies change in vision. EARS, NOSE, MOUTH, THROAT: Denies headaches, denies sore throat. CARDIOVASCULAR: Right-sided chest wall pain, no palpitations or syncopal episodes. RESPIRATORY: Denies shortness of breath, cough, congestion or hemoptysis. GASTROINTESTINAL: Denies change in appetite, denies abdominal pain GENITOURINARY: Denies hematuria, denies infections. MUSKULOSKELETAL: Denies pain, denies swelling. INTEGUMENTARY: Denies rash, denies eczema. NEUROLOGICAL: Denies recent memory loss, no recent seizure activity. PSYCHIATRIC: Denies anxiety, denies depression. HEMATOLOGIC/LYMPHATIC: Denies anemia, denies enlarged lymph nodes. Past Medical History Past Medical History: Atrial Fibrillation, Heart Failure, Diabetes Mellitus, D eep Vein Thrombosis (DVT), Hypertension, Osteoarthritis (OA), Prostate Disorder Additional Past Medical History / Comment(s): back pain, MRI scheduled for 10/28/22 History of Any Multi-Drug Resistant Organisms: None Reported Past Surgical History: Orthopedic Surgery Additional Past Surgical History / Comment(s): bilateral total hip replacement. 2007 .05-12-16 TOTAL RIGHT HIP REPLACEMENT. RT KNEE SX. RT SHOULDER SX. COLONOSCOPY Past Anesthesia/Blood Transfusion Reactions: No Reported Reaction Past Psychological History: No Psychological Hx Reported Smoking Status: Former smoker Past Alcohol Use History: None Reported Past Drug Use History: None Reported - Past Family History Mother Family Medical History: Diabetes Mellitus Father Additional Family Medical History / Comment(s): FROM SPINAL MENNINGITIS Medications and Allergies Home Medications Medication Instructions Recorded Confirmed Type Atorvastatin [Lipitor] 40 mg PO DAILY@189910/20/22 06/22/23 History Tamsulosin [Flomax] 0.4 mg PO DAILY@189910/20/22 06/22/23 History Acetaminophen Tab [Tylenol] 650 mg PO Q6HR PRN tab 03/31/23 06/22/23 Rx Melatonin 5 mg PO HS PRN tab 03/31/23 06/22/23 Rx Sodium Chloride 0.65% Nasal [Deep 2 spray NASAL QID PRN ml 03/31/23 06/22/23 Rx Sea (Saline)] Cyclobenzaprine [Flexeril] 5 mg PO TID@0700,1500,2300 06/22/23 06/22/23 History HYDROcodone/APAP 5-325MG [[place] 1 tab PO Q6H PRN 06/22/23 06/22/23 History 5-325] Potassium Chloride ER [K-Dur 10] 10 meq PO DAILY@189906/22/23 06/22/23 History Rivaroxaban [Xarelto] 20 mg PO DAILY@189906/22/23 06/22/23 History Torsemide [Demadex] 40 mg PO BID@0700,189906/22/23 06/22/23 History Allergies Allergy/AdvReac Type Severity Reaction Status Date / Time metformin Allergy Diarrhea Verified 06/23/23 11:15 Penicillins Allergy Rash/Hives Verified 06/22/23 22:52 ibuprofen AdvReac BURING Verified 06/22/23 22:52 SENSATION IN ARMS Physical Exam Vitals: Vital Signs Temp Pulse Pulse Resp BP BP Pulse Ox 06/24/23 07:28 97.5 F L 93 19 120/72 95 06/24/23 02:00 98.1 F 90 16 110/66 96 06/23/23 21:55 110/70 06/23/23 18:30 98.0 F 94 19 115/65 95 06/23/23 18:08 100 20 94/60 96 06/23/23 15:55 88 18 100/69 96 06/23/23 15:50 84 18 107/68 94 L 06/23/23 15:30 92 18 121/72 94 L Intake and Output 06/24/23 06/24/23 06/24/23 06:59 14:59 22:59 Output Total 800 720 Balance -800 -720 Output: Urine 800 720 Other: # Voids 3 GENERAL EXAM: Alert, 67-year-old male patient, on room air, comfortable in no apparent distress. HEAD: Normocephalic. EYES: Normal reaction of pupils, equal size. NOSE: Clear with pink turbinates. THROAT: No erythema or exudates. NECK: No masses, no JVD. CHEST: No chest wall deformity. LUNGS: Equal air entry with no crackles, wheeze, rhonchi or dullness. CVS: S1 and S2 normal with no audible murmur, regular rhythm. ABDOMEN: No hepatosplenomegaly, normal bowel sounds, no guarding or rigidity. SPINE: No scoliosis or deformity SKIN: No rashes CENTRAL NERVOUS SYSTEM: No focal deficits, tone is normal in all 4 extremities. EXTREMITIES: There is no peripheral edema. No clubbing, no cyanosis. Sara pheral pulses are intact. Results - Laboratory Findings CBC and BMP: 06/22/23 23:38 06/24/23 12:35 PT/INR, D-dimer PT 11.7 sec (10.0-12.5) 06/22/23 23:38 INR 1.1 (<1.2) 06/22/23 23:38 Abnormal lab findings: Abnormal Labs 06/22/23 06/22/23 06/22/23 23:38 23:38 23:38 WBC 10.9 H RBC 4.16 L Hgb 11.4 L Hct 37.9 L MCHC 30.1 L RDW 16.9 H Plt Count 469 H Neutrophils # 8.6 H ESR Sodium Carbon Dioxide BUN 30 H Glucose 123 H POC Glucose (mg/dL) Plasma Lactic Acid Juan Carlos 2.6 H* Calcium 8.3 L Alkaline Phosphatase 136 H C-Reactive Protein 2.7 H Total Protein Albumin 2.2 L Procalcitonin Urine Protein Urine Glucose (UA) Urine Blood Urine Mucus 06/22/23 06/23/23 06/23/23 23:38 08:47 12:15 WBC RBC Hgb Hct MCHC RDW Plt Count Neutrophils # ESR Sodium Carbon Dioxide BUN Glucose POC Glucose (mg/dL) 134 H 118 H Plasma Lactic Acid Juan Carlos Calcium Alkaline Phosphatase C-Reactive Protein Total Protein Albumin Procalcitonin 0.46 H Urine Protein Urine Glucose (UA) Urine Blood Urine Mucus 06/23/23 06/23/23 06/23/23 14:59 14:59 14:59 WBC RBC Hgb Hct MCHC RDW Plt Count Neutrophils # ESR 97 H Sodium Carbon Dioxide BUN Glucose POC Glucose (mg/dL) Plasma Lactic Acid Juan Carlos Calcium Alkaline Phosphatase C-Reactive Protein 5.9 H Total Protein Albumin Procalcitonin 0.81 H Urine Protein Urine Glucose (UA) Urine Blood Urine Mucus 06/23/23 06/24/23 06/24/23 21:11 06:48 11:56 WBC RBC Hgb Hct MCHC RDW Plt Count Neutrophils # ESR Sodium Carbon Dioxide BUN Glucose POC Glucose (mg/dL) 148 H 126 H 133 H Plasma Lactic Acid Juan Carlos Calcium Alkaline Phosphatase C-Reactive Protein Total Protein Albumin Procalcitonin Urine Protein Urine Glucose (UA) Urine Blood Urine Mucus 06/24/23 06/24/23 12:35 13:26 WBC RBC Hgb Hct MCHC RDW Plt Count Neutrophils # ESR Sodium 131 L Carbon Dioxide 19 L BUN 29 H Glucose 139 H POC Glucose (mg/dL) Plasma Lactic Acid Juan Carlos Calcium 7.6 L Alkaline Phosphatase C-Reactive Protein Total Protein 5.6 L Albumin 1.9 L Procalcitonin Urine Protein 2+ H Urine Glucose (UA) 3+ H Urine Blood Small H Urine Mucus Rare H - Diagnostic Findings Chest x-ray: image reviewed Assessment and Plan Assessment: Fall with trauma and severe back pain. Trip and fall without loss of consciousness. Found to have possible discitis/osteomyelitis of L2-L3. Status post fine-needle aspirate today 06/24/2023 Right pleural effusion, too small for thoracentesis. Patient is stable and on room air History of recent Enterococcus faecalis bacteremia/sepsis was residing in [facility] on [facility] History of renal failure recently stopped due to infection History of atrial fibrillation anticoagulated with Xarelto History of congestive heart failure History of diabetes mellitus, type XXIX History of DVT Hypertension Former smoker Poor overall functional performance based on the above-mentioned multiple comorbidities And: The patient was seen and evaluated CT scans chest x-ray, chest ultrasound, medications and labs reviewed Not enough fluid for safe thoracentesis at this time Stable and on room air FNA of L2-L3 disc performed, fluid analysis and pathology pending Currently on cefepime and vancomycin Anticoagulated with Eliquis We will continue to follow and make further recommendations based on his clinical status I have personally seen and examined the patient, performed the documentation and the assessment and plan as written. Number of minutes spent on the visit: 20.
[2023-06-24 15:44] VITALS: BP 129/73; PULSE 114
--- NOTE | 2023-06-24 16:17 | P.CNOR ---
History of Present Illness - [facility] Consult date: 06/24/23 Consult reason: back pain History of present illness: The patient is seen and examined at bedside. He is a pleasant 67-year-old male who is seen in regards to back pain. Apparently the patient had a fall 2 days ago while walking with his walker at home going to the bathroom. He says he bumped his head against the wall but has had worsening pain in his back since his fall. He denies any new neurologic injury in his lower extremities. He denies any other new injuries and his legs. He denies any changes in bowel bladder function. He has history of renal failure and makes some urine.. He says he has some soreness that his left lower ribs. He says he did not loose consciousness. Denies any chest pain or shortness of breath. The patient has history of congestive heart failure and renal failure. He had hypotension and cardiorenal syndrome in February 2023 and was started on hemodialysis. His last hemodialysis was at the end of April. He was having issues with pulmonary effusions and has history of diastolic congestive heart failure. He says that these things have been managed adequately over the past couple of months but he has been feeling somewhat more difficulty with his back with his ambulation over the past 2 weeks. He says that when he fell 2 days ago she just tripped on the carpet while using his walker. He denies any neurologic loss in his lower extremity is. He denies any new weakness in his lower extremities. He admits to long history of neuropathy in his legs. He admits to long history of pain in his back. Review of Systems As stated per HPI. He denies any neurologic changes in his lower extremities. He denies any new weakness in his lower extremities. Denies any changes in bowel bladder function. He was on hemodialysis a couple of months ago and he says he has been making urine. He has a [place] catheter as he is on bedrest now. Past Medical History Past Medical History: Atrial Fibrillation, Heart Failure, Diabetes Mellitus, Deep Vein Thrombosis (DVT), Hypertension, Osteoarthritis (OA), Prostate Disorder Additional Past Medical History / Comment(s): back pain, MRI scheduled for 10/28/22 History of Any Multi-Drug Resistant Organisms: None Reported Past Surgical History: Orthopedic Surgery Additional Past Surgical History / Comment(s): bilateral total hip replacement. 200705-12-16 TOTAL RIGHT HIP REPLACEMENT. RT KNEE SX. RT SHOULDER SX. COLONOSCOPY Past Anesthesia/Blood Transfusion Reactions: No Reported Reaction Past Psychological History: No Psychological Hx Reported Smoking Status: Former smoker Past Alcohol Use History: None Reported Past Drug Use History: None Reported - Past Family History Mother Family Medical History: Diabetes Mellitus Father Additional Family Medical History / Comment(s): FROM SPINAL MENNINGITIS Medications and Allergies Home Medications Medication Instructions Recorded Confirmed Type Atorvastatin [Lipitor] 40 mg PO DAILY@189910/20/22 06/22/23 History Tamsulosin [Flomax] 0.4 mg PO DAILY@189910/20/22 06/22/23 History Acetaminophen Tab [Tylenol] 650 mg PO Q6HR PRN tab 03/31/23 06/22/23 Rx Melatonin 5 mg PO HS PRN tab 03/31/23 06/22/23 Rx Sodium Chloride 0.65% Nasal [Deep 2 spray NASAL QID PRN ml 03/31/23 06/22/23 Rx Sea (Saline)] Cyclobenzaprine [Flexeril] 5 mg PO TID@0700,1500,2300 06/22/23 06/22/23 History HYDROcodone/APAP 5-325MG [[place] 1 tab PO Q6H PRN 06/22/23 06/22/23 History 5-325] Potassium Chloride ER [K-Dur 10] 10 meq PO DAILY@189906/22/23 06/22/23 History Rivaroxaban [Xarelto] 20 mg PO DAILY@19006/22/23 06/22/23 History Torsemide [Demadex] 40 mg PO BID@0700,1900 06/22/23 06/22/23 History Allergies Allergy/AdvReac Type Severity Reaction Status Date / Time metformin Allergy Diarrhea Verified 06/23/23 11:15 Penicillins Allergy Rash/Hives Verified 06/22/23 22:52 ibuprofen AdvReac BURING Verified 06/22/23 22:52 SENSATION IN ARMS Physical Examination Osteopathic Statement: *. No significant issues noted on an osteopathic structural exam other than those noted in the History and Physical/Consult. - L Spine: dermatomal strength & reflexes bilateral Strength: hip flexion: 5/5 (His back has some diffuse tenderness without point tenderness or crepitus. There is some paravertebral spasm. He has some pain in his left lower ribs. He's breathing well. His lower extremities have 5 over 5 strength the dorsal flexion plantar flexion and EHL. He is able to lift his legs up off) Strength: hip extension: 5/5 (He is able to lift his legs up off the bed independently bilaterally. There is no pain in his hips with internal/external rotation. His pelvis is stable to rock. His abdomen is soft. There is some tenderness when his left lower ribs anteriorly. His upper extremity is have full active and passiv) Strength: knee flexion: 5/5 (His calves and thighs soft nontender. His upper extremity is hopeful active and passive range of motion with 5 out of 5 strength. His neck is nontender to palpation range motion.) Results - Labs Labs: Abnormal Lab Results - Last 24 Hours (Table) 06/23/23 06/23/23 06/23/23 Range/Units 14:59 14:59 21:11 ESR 97 H (0-20) mm/Hr Sodium (137-145) mmol/L Carbon Dioxide (22-30) mmol/L BUN (9-20) mg/dL Glucose (74-99) mg/dL POC Glucose (mg/dL) 148 H (70-110) mg/dL Calcium (8.4-10.2) mg/dL Total Protein (6.3-8.2) g/dL Albumin (3.5-5.0) g/dL Procalcitonin 0.81 H (0.02-0.09) ng/mL Urine Protein (Negative) Urine Glucose (UA) (Negative) Urine Blood (Negative) Urine Mucus (None) /hpf 06/24/23 06/24/23 06/24/23 Range/Units 06:48 11:56 12:35 ESR (0-20) mm/Hr Sodium 131 L (137-145) mmol/L Carbon Dioxide 19 L (22-30) mmol/L BUN 29 H (9-20) mg/dL Glucose 139 H (74-99) mg/dL POC Glucose (mg/dL) 126 H 133 H (70-110) mg/dL Calcium 7.6 L (8.4-10.2) mg/dL Total Protein 5.6 L (6.3-8.2) g/dL Albumin 1.9 L (3.5-5.0) g/dL Procalcitonin (0.02-0.09) ng/mL Urine Protein (Negative) Urine Glucose (UA) (Negative) Urine Blood (Negative) Urine Mucus (None) /hpf 06/24/23 Range/Units 13:26 ESR (0-20) mm/Hr Sodium (137-145) mmol/L Carbon Dioxide (22-30) mmol/L BUN (9-20) mg/dL Glucose (74-99) mg/dL POC Glucose (mg/dL) (70-110) mg/dL Calcium (8.4-10.2) mg/dL Total Protein (6.3-8.2) g/dL Albumin (3.5-5.0) g/dL Procalcitonin (0.02-0.09) ng/mL Urine Protein 2+ H (Negative) Urine Glucose (UA) 3+ H (Negative) Urine Blood Small H (Negative) Urine Mucus Rare H (None) /hpf Microbiology - Last 24 Hours (Table) 06/23/23 15:57 Gram Stain - Preliminary Aspirate Body Fluid Culture - Preliminary 06/22/23 23:50 Blood Culture Gram Stain - Preliminary Blood 06/22/23 23:35 Blood Culture Gram Stain - Preliminary Blood H & H 06/22/23 Range/Units 23:38 Hgb 11.4 L (13.0-17.5) gm/dL Hct 37.9 L (39.0-53.0) % Coagulation 06/22/23 Range/Units 23:38 INR 1.1 (<1.2) Result Diagrams: 06/22/23 23:38 06/24/23 12:35 - Diagnostic results CT Scan - lumbar: report reviewed (The report and images reviewed. There is some destructive lesion at L2-3 with bony erosion with into the vertebral bodies. It does not seem to extend into the posterior interval elements. It is difficult to ascertain the full extent toward the canal or in the soft tissue. There is some streaking), image reviewed (Computed tomography scan of lumbar spine is reviewed. There is evidence of spondylosis and some diffuse ankylosis through his spine. At L2-3 there is a destructive lesion with bony erosion at L2 and L3 and through the disc space. It is difficult to see the extent of the swelling. There is some s) Assessment and Plan Assessment: Destructive spinal lesion at L2-3 of unknown origin with bony erosion Acute on chronic low back pain status post fall 3 days ago without apparent neurologic loss Recent history of congestive heart failure Recent history of acute renal failure, had been on dialysis with last dialysis in April now making urine No apparent new neurologic loss Plan: Destructive spinal lesion at L2-3 of unknown origin with bony erosion Acute on chronic low back pain status post fall 3 days ago without apparent neurologic loss Recent history of congestive heart failure Recent history of acute renal failure, had been on dialysis with last dialysis in April now making urine No apparent new neurologic loss We have seen the patient in regards to bony erosion at L2-3. The patient had a recent fall 2 days ago and has had exacerbation of his low back pain. He is not having any new apparent neurologic loss. The L2 erosive lesion is of uncertain etiology. It is difficult to determine if it is infectious or cancerous in nature. He had a aspiration yesterday of the L2-3 space which has not shown any bacterial growth. He had a computed tomography scan which shows the significant bony erosion at the area. We ordered an MRI but it has not yet been done. The patient is having a bone scan completed. The patient has significant history with congestive heart failure and acute renal failure. He has a number of medical issues which have been addressed quite recently for him. The L2-3 erosive lesion is fairly extensive and will likely need significant surgical intervention for decompression and stabilization. We do not know the e xtent for surgical planning as we have not completed MRI thus far. I think that the type of surgery may involve significant involvement and possible anterior and posterior surgery. Given his significant medical history and the extent of the necessary surgical intervention I think that he would be best served with treatment at a tertiary facility. I discussed the case with general service as well as with the transferring facility with [facility]. I think patient is best served as tertiary facility and he has been accepted at [facility] for continued workup and definitive treatment of his L2-3 destructive lesion. I discussed this with the family. Has answered the patient's questions in the 's questions to the best my ability and leg which that there can understand. They will continue their workup and plan to proceed with transfer and continued care at [facility].
[2023-06-24] MEDS ORDERED: LIDOCAINE 2% (PF) 20 MG/ML 5 ML VIAL ONE (16:44)
[2023-06-24] MEDS ORDERED: LIDOCAINE 1% INJ 10MG/ML (20 ML MDV) ONE (16:44)
[2023-06-24 17:30] LABS: Glucose,Whole Blood 147 mg/dL (70-110)
[2023-06-24] MEDS: VITAMIN B COMPLEX PO SCH (17:34)
--- NOTE | 2023-06-24 17:34 | PN ---
PROGRESS NOTE DATE OF SERVICE: 06/24/2023 SUBJECTIVE: This is a 67-year-old gentleman, who was admitted with fall and back pain, had L2-L3 disk lesions. A CT-guided aspiration yielded small amount of material. The patient also had a recent Enterococcus faecalis bacteremia. Multiple consultants are following the patient closely. The patient is complaining of some severe back pain, which is radiating to the legs at this time. PAST MEDICAL HISTORY: Reviewed. REVIEW OF SYSTEMS: Fourteen-point review is negative except as mentioned earlier. CURRENT MEDICATIONS: Cefepime. Doses and rest of the medications are noted. PHYSICAL EXAMINATION: VITAL SIGNS: Pulse 98, blood pressure 110/56, respirations 16. HEENT: Conjunctivae are normal. NECK: No jugular venous distention. CARDIOVASCULAR: S1 and S2. RESPIRATORY: Breath sounds diminished at the bases. ABDOMEN: Soft. LEGS: No edema. MUSCULOSKELETAL: Back pain present. LABORATORY DATA: Reviewed. ASSESSMENT: 1. Fall and severe back pain, possibly L2-L3 osteomyelitis or diskitis. Rule out malignancy. 2. Rule out multiple myeloma. 3. History of recent Enterococcus faecalis bacteremia/sepsis. 4. Elevated lactic acid. 5. Possible sepsis present on admission. 6. Gait dysfunction. 7. Atrial fibrillation. 8. Congestive heart failure. 9. Diabetes mellitus, type 2. 10.History of deep venous thrombosis. 11.Multiple complex medical issues. RECOMMENDATIONS: Recommend to continue current medications. Continue symptomatic treatment. Continue with empiric antibiotics. Follow the cultures. Also, recommend serum protein electrophoresis and UA. Guarded prognosis because of multiple complex medical issues. Further recommendations to follow. See orders for details. MMODL / IJN: [id number] /
[2023-06-24] MEDS: METOPROLOL SUCCINATE (ER) 25 MG TAB.ER.24H PO SCH (17:35)
--- NOTE | 2023-06-24 17:38 | NM ---
EXAMINATION TYPE: NM bone 3 phase DATE OF EXAM: 06/24/2023 COMPARISON: CT 06/15/2023 MRI lumbar spine 10/28/2022. CLINICAL INDICATION: Male, 67 years old with history of mets?; Triple phase bone scintigraphy was performed following the injection of 22.3 mCi Tc 99m MDP. Immedia te images and 7 hours post injection images acquired. FINDINGS: Limited exam secondary to patient positioning. No obvious evidence for osteomyelitis or osteoblastic uptake to suggest metastatic disease. IMPRESSION: Limited exam no evidence for osteoblastic metastatic disease, shoulders are partially fie ld-of-view. There may be mild uptake within the spine on a couple of the sequences which would sugges t osteomyelitis. Attention on ordered MRI lumbar spine.
[2023-06-24] MEDS: ATORVASTATIN 40 MG TAB PO SCH (17:59)
[2023-06-24] MEDS: CHOLECALCIFEROL 125 MCG (5000 IU) TABLET PO SCH (17:59)
[2023-06-24] MEDS: RIVAROXABAN 20 MG TAB PO SCH (17:59)
[2023-06-24] MEDS: TAMSULOSIN 0.4 MG CAP.ER.24H PO SCH (17:59)
[2023-06-24] MEDS: POTASSIUM CHLORIDE ER 10 MEQ TAB.ER.PRT PO SCH (17:59)
[2023-06-24] MEDS: THIAMINE 100 MG TAB PO SCH (18:00)
[2023-06-24] MEDS: ASPIRIN 81 MG PO SCH (18:00)
[2023-06-24 19:23] LABS: Basophils % (A) 1.2 %; Eosinophils # (A) 0.35 X 10*3/uL (0.04-0.35); Eosinophils % (A) 4.1 %; HCT 32.4 % (39.6-50.0); HGB 9.5 g/dL (13.0-17.0); Lymphocytes % (A) 16.4 %; MCH 26.9 pg (27.0-32.0); MCHC 29.3 g/dL (32.0-37.0); MCV 91.8 FL (80.0-97.0); Mean Platelet Volume 9.1 FL (9.5-12.2); Monocytes # (A) 0.68 X 10*3/uL (0.20-1.00); Monocytes % (A) 7.9 %; NRBC Per 100 WBC 0 X 10*3/uL (0.00-0.01); Neutrophils # (A) 5.98 X 10*3/uL (1.80-7.70); Neutrophils % (A) 69.8 %; Platelet Count 383 X 10*3/uL (140-440); RBC 3.53 X 10*6/uL (4.40-5.60); RDW 17.4 % (11.5-14.5); WBC 8.56 X 10*3/uL (4.50-10.00)
[2023-06-24 20:41] LABS: Albumin 1.5 g/dL (3.8-4.9); Protein, Total 5.4 g/dL (6.2-8.2)
--- NOTE | 2023-06-24 21:12 | P.CONS ---
History of Present Illness - Reason for Consult Consult date: 06/24/23 IgG paraprotein Requesting physician: Stephan Lopez - Chief Complaint fall - History of Present Illness Mr. 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 He was seen in consult in 02/2023 for the same. During that admission further lab workup revealed elevated K/L LC, but normal ratio, negative m spike and urine immunofixation, consistent with MGUS. Patient has a past medical history of CHF, hypertension, type 2 diabetes mellitus, bolus pemphigoid, and osteoarthritis. Patient presented to emergency room for progressing lower back pain and mechanical fall at home landing on his right side. Patient reports he did strike his head lightly but did not lose consciousness. Upon admission chest x- ray revealed bilateral pleural effusion and consolidation which is slightly imp roved from prior exam. CT thoracic spine revealed no acute findings in the thoracic spine CT lumbar spine revealed findings suspicious for discitis osteomyelitis at L2-3 patient has been started on IV antibiotics and orthopedic surgery has been consulted. CT abdomen pelvis without contrast revealed destructive process involving the inferior endplate of L2 and the superior endplate of L3. Paraspinal stranding particularly on the right where there is increased attenuation noted. Epidural narrowing suggested. Increased density right infrahilar region with moderate right-sided pleural effusion. Aspiration of lumbar spine was obtained, culture negative thus far. Blood culture positive for gram-positive cocci. Patient is afebrile. Lactic acid was noted elevated at 2.6. WBC 10.9, hemoglobin 11.4, platelets 469,000. Review of Systems 10 point ROS is negative except as stated in the HPI Past Medical History Past Medical History: Atrial Fibrillation, Heart Failure, Diabetes Mellitus, Deep Vein Thrombosis (DVT), Hypertension, Osteoarthritis (OA), Prostate Disorder Additional Past Medical History / Comment(s): back pain, MRI scheduled for 10/28/22 History of Any Multi-Drug Resistant Organisms: None Reported Past Surgical History: Orthopedic Surgery Additional Past Surgical History / Comment(s): bilateral total hip replacement. 2007 .05-12-16 TOTAL RIGHT HIP REPLACEMENT. RT KNEE SX. RT SHOULDER SX. COLONOSCOPY Past Anesthesia/Blood Transfusion Reactions: No Reported Reaction Past Psychological History: No Psychological Hx Reported Smoking Status: Former smoker Past Alcohol Use History: None Reported Past Drug Use History: None Reported - Past Family History Mother Family Medical History: Diabetes Mellitus Father Additional Family Medical History / Comment(s): FROM SPINAL MENNINGIT[facility] Medications and Allergies Home Medications Medication Instructions Recorded Confirmed Type Atorvastatin [Lipitor] 40 mg PO DAILY@1900 10/20/22 06/22/23 History Tamsulosin [Flomax] 0.4 mg PO DAILY@189910/20/22 06/22/23 History Acetaminophen Tab [Tylenol] 650 mg PO Q6HR PRN tab 03/31/23 06/22/23 Rx Melatonin 5 mg PO HS PRN tab 03/31/23 06/22/23 Rx Sodium Chloride 0.65% Nasal [Deep 2 spray NASAL QID PRN ml 03/31/23 06/22/23 Rx Sea (Saline)] Cyclobenzaprine [Flexeril] 5 mg PO TID@0700,1500,2300 06/22/23 06/22/23 History HYDROcodone/APAP 5-325MG [[place] 1 tab PO Q6H PRN 06/22/23 06/22/23 History 5-325] Potassium Chloride ER [K-Dur 10] 10 meq PO DAILY@189906/22/23 06/22/23 History Rivaroxaban [Xarelto] 20 mg PO DAILY@189906/22/23 06/22/23 History Torsemide [Demadex] 40 mg PO BID@0700,1900 06/22/23 06/22/23 History Allergies Allergy/AdvReac Type Severity Reaction Status Date / Time metformin Allergy Diarrhea Verified 06/23/23 11:15 Penicillins Allergy Rash/Hives Verified 06/22/23 22:52 ibuprofen AdvReac BURING Verified 06/22/23 22:52 SENSATION IN ARMS Physical Exam Vitals: Vital Signs Temp Pulse Pulse Resp BP BP Pulse Ox 06/24/23 02:00 98.1 F 90 16 110/66 96 06/23/23 21:55 110/70 06/23/23 18:30 98.0 F 94 19 115/65 95 06/23/23 18:08 100 20 94/60 96 06/23/23 15:55 88 18 100/69 96 06/23/23 15:50 84 18 107/68 94 L 06/23/23 15:30 92 18 121/72 94 L 06/23/23 15:10 66 18 112/67 95 06/23/23 14:00 87 18 110/62 96 06/23/23 13:00 88 18 111/65 96 06/23/23 12:00 89 18 114/64 94 L 06/23/23 11:00 88 18 114/74 96 06/23/23 10:00 98 18 115/74 95 Intake and Output 06/23/23 06/24/23 06/24/23 22:59 06:59 14:59 Output Total 800 Balance -800 Output: Urine 800 Other: # Voids 3 Weight 90.718 kg - Constitutional General appearance: average body habitus, no acute distress - EENT Eyes: anicteric sclerae ENT: hearing grossly normal - Respiratory Respiratory: right: diminished - Cardiovascular Rhythm: regular Heart sounds: normal: S1, S2 - Gastrointestinal General gastrointestinal: soft, no tenderness - Integumentary Integumentary: no cyanotic - Neurologic grossly intact - Musculoskeletal decreased ROM lower spine Musculoskeletal: generalized weakness - Psychiatric Psychiatric: A&O x's 3 Results CBC & Chem 7: 06/24/23 12:50 06/24/23 12:35 Labs: Abnormal Lab Results - Last 24 Hours (Table) 06/23/23 06/23/23 06/23/23 Range/Units 12:15 14:59 14:59 ESR 97 H (0-20) mm/Hr POC Glucose (mg/dL) 118 H (70-110) mg/dL C-Reactive Protein 5.9 H (<1.0) mg/dL Procalcitonin (0.02-0.09) ng/mL 06/23/23 06/23/23 06/24/23 Range/Units 14:59 21:11 06:48 ESR (0-20) mm/Hr POC Glucose (mg/dL) 148 H 126 H (70-110) mg/dL C-Reactive Protein (<1.0) mg/dL Procalcitonin 0.81 H (0.02-0.09) ng/mL Microbiology - Last 24 Hours (Table) 06/22/23 23:50 Blood Culture Gram Stain - Preliminary Blood 06/23/23 15:57 Gram Stain - Preliminary Aspirate 06/22/23 23:35 Blood Culture Gram Stain - Preliminary Blood Comments: US chest reviewed, CT l/s reviewed Chest x-ray: report reviewed Assessment and Plan (1) Back pain Status: Acute Priority: High Code(s): M54.9 - DORSALGIA, UNSPECIFIED SNOMED Code(s): 308818690 (2) Fall Status: Acute Priority: Medium Code(s): W19.XXXA - UNSPECIFIED FALL, INITIAL ENCOUNTER SNOMED Code(s): 3783907 (3) IgG lambda monoclonal gammopathy Status: Acute Priority: Medium Code(s): D47.2 - MONOCLONAL GAMMOPATHY SNOMED Code(s): 82920144 Plan: IgG lambda monoclonal gammopathy -IgG lambda seen on immunofixation, protein electrophoresis no measurable quantity reported, no M spike. 24 hours Urine PEP negative for bence abel protein. Serum kappa/lambda light chains elevated, normal ratio. Findings consistent with MGUS -Will repeat SPEP and serum kappa lambda light chains. Pending lab workup, patient will require follow-up labs in a couple of months for observation Back pain: -CT lumbar spine revealed findings suspicious for discitis osteomyelitis at L2-3 patient has been started on IV antibiotics and orthopedic surgery has been consulted. CT abdomen pelvis without contrast revealed destructive process involving the inferior endplate of L2 and the superior endplate of L3. Paraspinal stranding particularly on the right where there is increased attenuation noted. Epidural narrowing suggested. Increased density right infrahilar region with moderate right-sided pleural effusion. Orthopedic surgery consulted, aspiration of lumbar spine was obtained, culture negative thus far. -Plan if for transfer to tertiary care center for further management Dr attests: I have performed H&P and developed impression and plan of care for p atient, discussed with dictator. I agree with dictated note, documented as a scribe -
--- NOTE | 2023-06-24 22:46 | OP ---
OPERATIVE REPORT DATE OF SERVICE : PROCEDURE PERFORMED: Removal of the dialysis catheter, right jugular approach. DESCRIPTION OF PROCEDURE: The patient was seen in the room. Right side of the neck and chest was prepped and drapes applied in a sterile manner. 1% lidocaine was infiltrated. A small incision was made at the exit site of the catheter. Catheter was removed. Tip of catheter was sent for culture. Pressure dressing applied. The patient tolerated the procedure well. MMODL / IJN: [id number] /
[2023-06-25] MEDS ORDERED: CEFEPIME 2 GM in SODIUM CHLORIDE 0.9% 100 ML IVPB SCH ×2
--- NOTE | 2023-06-25 09:58 | P.DS ---
Providers Date of admission: 06/23/23 02:55 Expected date of discharge: 06/24/23 Attending physician: Giovani Gardner Consults: 06/23/23 02:53 Consult Physician Urgent Consulting Provider: Stephan Lopez Consult Reason/Comments: dialysis Do you want consulting provider notified?: Yes, Notify in am Consult Physician Urgent Consulting Provider: Marely Clemons Consult Reason/Comments: osteomyelitis,dialysis pt Do you want consulting provider notified?: Yes, Notify in am 06/23/23 11:10 Consult Physician Routine Consulting Provider: Jonathan Hernandez Consult Reason/Comments: IgG lambda on immunofixation Do you want consulting provider notified?: Yes 06/23/23 13:34 Consult Physician Routine Consulting Provider: Tiara Goldstein Consult Reason/Comments: ? vertebral osteo?? Do you want consulting provider notified?: Yes 06/23/23 13:52 Consult Physician Routine Consulting Provider: Glenn Velazquez Consult Reason/Comments: rt pleural effusion Do you want consulting provider notified?: Yes 06/24/23 10:50 Consult Physician Urgent Consulting Provider: Sergio Cano Consult Reason/Comments: remove dialysis catheter, send tip for culture, positive blood cultures. Do you want consulting provider notified?: Yes Primary care physician: Chico Garcia Hospital Course: Final diagnosis Follow-up with severe back pain, possibly L-2L3 osteomyelitis or discitis, rule out malignancy Rule out multiple myeloma History of recent enterococcus fascia was bacteremia with sepsis Elevated lactic acid, present on admission Possible sepsis, present on admission secondary to it assessment #1 Gait dysfunction Atrial ablation history Congestive heart failure history Renal failure currently off hemodialysis since April Diabetes mellitus, type II History of deep vein thrombosis Discharge disposition Patient is being discharged in a stable condition with guarded prognosis to [facility] for tertiary treatment . Patient will follow-up with Dr. Garcia in the outpatient setting upon discharge. Patient is to continue with close outpatient follow up with nephrology as scheduled. Dialysis catheter tip was removed and sent for cultures. Total time taken is greater than 35 minutes. Hospital course This is a 67-year-old male was recently admitted with fall and having severe back pain and underwent CT with concerns of possible osteomyelitis versus discitis of the L2-L3 region and has been evaluated by orthopedics along with infectious disease and nephrology. Orthopedics recommending MRI and underwent bone scan with concerns of possibly needing anterior and posterior surgical intervention and is high risk recommended tertiary treatment center transfer. Per Dr. Goldstein, [facility] was contacted and Dr. Amaya of [facility] in [place] accepted the patient and patient and are agreeable with this transfer. A copy of the medical record along with imagings placed on a disc and being sent to [facility]. Patient has received a bed and will be transferred via EMS. Currently no reports of chest pain, shortness of breath, or palpitations. Patient is afebrile. No reports of nausea or vomiting and patient is tolerating diet. Patient will be transferred to [facility] in [place] today. Guarded prognosis. Physical exam: Gen: This is a 67 year old male who is awake, alert and oriented x3. well developed, well nourished. Obese HEENT: Head is atraumatic, normocephalic. Pupils equal, round. Sclerae is anicteric. NECK: Supple. No JVD. No lymphadenopathy. No thyromegaly. LUNGS: Clear to auscultation. No wheezes or rhonchi. No intercostal retractions. HEART: Regular rate and rhythm. No murmur. ABDOMEN: Soft. obese, Bowel sounds are present. No masses. No tenderness. EXTREMITIES: No pedal edema. No calf tenderness. NEUROLOGICAL: Patient is awake, alert and oriented x3. Cranial nerves 2 through 12 are grossly intact. diffusely weak Please refer to medication reconciliation sheet for a list of medications. The impression and plan of care has been dictated by Sandra Ayala, Nurse Practitioner as directed. Dr. Jj MD I have performed a history and examination and MDM of this patient, discussed the same with the dictator, and agree with the dictator's assessment and plan as written ,documented as a scribe. Based on total visit time, I have performed more than 50% of the visit. Patient Condition at Discharge: Stable Plan - Discharge Summary New Discharge Prescriptions: No Action Sodium Chloride 0.65% Nasal [Deep Sea (Saline)] 2 spray NASAL QID PRN ml PRN Reason: Dry Nasal Passages Acetaminophen Tab [Tylenol] 650 mg PO Q6HR PRN tab PRN Reason: Fever and/ or Mild Pain HYDROcodone/APAP 5-325MG [[place] 5-325] 1 tab PO Q6H PRN PRN Reason: Pain Rivaroxaban [Xarelto] 20 mg PO DAILY@1900 Tamsulosin [Flomax] 0.4 mg PO DAILY@190 Atorvastatin [Lipitor] 40 mg PO DAILY@190 Melatonin 5 mg PO HS PRN tab PRN Reason: Insomnia Potassium Chloride ER [K-Dur 10] 10 meq PO DAILY@190 Cyclobenzaprine [Flexeril] 5 mg PO TID@0700,1500,2300 Torsemide [Demadex] 40 mg PO BID@0700,1900 Discharge Medication List Atorvastatin [Lipitor] 40 mg PO DAILY@189910/20/22 [History] Tamsulosin [Flomax] 0.4 mg PO DAILY@189910/20/22 [History] Acetaminophen Tab [Tylenol] 650 mg PO Q6HR PRN tab 03/31/23 [Rx] Melatonin 5 mg PO HS PRN tab 03/31/23 [Rx] Sodium Chloride 0.65% Nasal [Deep Sea (Saline)] 2 spray NASAL QID PRN ml 03/31/23 [Rx] Cyclobenzaprine [Flexeril] 5 mg PO TID@0700,1500,2300 06/22/23 [History] HYDROcodone/APAP 5-325MG [[place] 5-325] 1 tab PO Q6H PRN 06/22/23 [History] Potassium Chloride ER [K-Dur 10] 10 meq PO DAILY@189906/22/23 [History] Rivaroxaban [Xarelto] 20 mg PO DAILY@189906/22/23 [History] Torsemide [Demadex] 40 mg PO BID@0700,19006/22/23 [History] Follow up Appointment(s)/Referral(s): Chico Garcia MD [Primary Care Provider] - 1-2 days Discharge Disposition: OTHER INSTITUTION NOT DEFINED
[2023-06-25 11:58] LABS: Free Kappa Lt Chain Qnt, Serum 15.01 mg/dL (0.33-1.94); Free Lambda Lt Chain Qnt, Seru 20.88 mg/dL (0.57-2.63)
[2023-06-25 16:50] LABS: Gamma Globulin 1.47 g/dL (0.70-1.50)
--- NOTE | 2023-06-25 21:09 | CDI ---
Documentation Clarification Form Date: 06/25/2023 08:59:17 PM From: Luz Marina Meza Phone: Admit Date: 06/23/2023 02:55:00 AM Patient Name: Kamran Brandon Visit Number: [id number] Discharge Date: 06/24/2023 08:25:00 PM ATTENTION: The Clinical Documentation Specialists (CDI) and [facility] Coding Staff appreciate your assistance in clarifying documentation. Please respond to the clarification below the line at the bottom and electronically sign. The CDI & [facility] Coding staff will review the response and follow-up if needed. Please note: Queries are made part of the Legal Health Record. If you have any questions, please contact the author of this message via ITS. Dr. Giovani Gardner Unspecified CKD is documented per ED Note and throughout the Progress Notes. Additional clarification regarding the stage of CKD is requested. History/Risk Factors: 67yo M, possiblyL2-3osteomyelitisordiscitis,recent Hxenterococcusfascia wsepsis, gaitdysfunction, ACDHF, ATN on CKD, DMII, Hx DVT, IgG lambda paraprotein Clinical Indicators: BUN: 29-30 CR: 1.22 AfAm GFR: 70 NonAfAm GFR: 60 Treatment: He had hypotension and cardiorenal syndrome in February 2023 and was started on HD. His lasthemodialysiswas at the end of Apr. Removalof thedialysiscatheter, right jugular approach. 06/24/2023 Please clarify the stage of the CKD, if known: [ ] CKD Stage 2 (GFR 60-89) [ ] CKD Stage 3a (GFR 45-59) [ ] Other, please specify [ ] Unable to determine (Template Last revised: August 2020) CKD Stage 2 MTDD
[2023-06-26] MEDS ORDERED: VANCOMYCIN TROUGH DUE 1 EACH MISC MISCELLANE ONE (14:00)
== END 2023-06-24 20:25 | disposition short-term general hospital (02) | DRG 551 ==
LOC: EC 21:12 → 4SSUR 06-23 02:55
PROVIDERS: ADMIT Hospitalist; ATTEND Hospitalist
PROC: 009T3ZX Drainage of Spinal Meninges, Percutaneous Approach, Diagnostic (ICD-10-PCS; principal; 2023-06-24)
PROC: 02PY33Z Removal of Infusion Device from Great Vessel, Percutaneous Approach (ICD-10-PCS; 2023-06-24)
DX: M46.46 Discitis, unspecified, lumbar region (principal); A41.81 Sepsis due to Enterococcus; I50.33 Acute on chronic diastolic (congestive) heart failure; T80.211A Bloodstream infection due to central venous catheter, initial encounter; I13.0 Hypertensive heart and chronic kidney disease with heart failure and stage 1 through stage 4 chronic kidney disease, or unspecified chronic kidney disease; M46.26 Osteomyelitis of vertebra, lumbar region; E11.22 Type 2 diabetes mellitus with diabetic chronic kidney disease; E11.42 Type 2 diabetes mellitus with diabetic polyneuropathy; I48.91 Unspecified atrial fibrillation; B95.2 Enterococcus as the cause of diseases classified elsewhere; D47.2 Monoclonal gammopathy; R26.9 Unspecified abnormalities of gait and mobility; R33.9 Retention of urine, unspecified; N18.2 Chronic kidney disease, stage 2 (mild); W01.0XXA Fall on same level from slipping, tripping and stumbling without subsequent striking against object, initial encounter; Y71.1 Therapeutic (nonsurgical) and rehabilitative cardiovascular devices associated with adverse incidents; Z96.643 Presence of artificial hip joint, bilateral; Z91.198 Patient's noncompliance with other medical treatment and regimen for other reason; Y92.009 Unspecified place in unspecified non-institutional (private) residence as the place of occurrence of the external cause; Z79.82 Long term (current) use of aspirin; Z79.01 Long term (current) use of anticoagulants; Z87.891 Personal history of nicotine dependence; Z79.899 Other long term (current) drug therapy; Z88.0 Allergy status to penicillin; Z88.6 Allergy status to analgesic agent; Z86.79 Personal history of other diseases of the circulatory system; Z88.8 Allergy status to other drugs, medicaments and biological substances; Z86.718 Personal history of other venous thrombosis and embolism
CPT/HCPCS: 36415; 71045; 72072; 72100; 72128; 72131; 74176; 76604; 77012; 78315; 80053; 81001; 83036; 83605; 83735; 83883; 84145; 84153; 84165; 85025; 85610; 85652; 85730; 86140; 87040; 87070; 87205; 96365; 96366; 96367; 96375; 96376; 99291

== ENCOUNTER → 2024-01-04 | Outpatient (CLI) | payer MEDICARE ==
[2024-01-04 09:17] VITALS: BP 141/67; PULSE 65; RESP 16
--- NOTE | 2024-01-04 15:01 | P.PAINPG ---
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 Pt states pain level is provoked at 9 /10 in intensity, constant, localized in the lower lumbar spine, predominantly axial, sore in character w occasional shooting pain down the BLEs. Pain is provoked by walking/standing/lifting for periods of 15 minutes or more. Pain is alleviated by injections in the past, medications, repositioning, use of a wheelchair for ambulatory assistance, sitting and rest. PT was contraindicated by his orthopedic physician as he was told it would be ineffective. Interventional procedures include Medications include Tyl REVIEW OF ORGAN SYSTEMS: CONSTITUTIONAL: No fevers or chills. No recent weight loss. NEUROLOGICAL: + numbness and tingling along the distal extremities. No seizure disorders or headaches. MUSCULOSKELETAL: + pain PSYCHIATRIC: Denies current depression or suicidal thoughts. Physical Examinations : Constitutional : Cooperative , not in acute distress . Neurologic : Cranial nerve II to XII intact. No focal neurological deficits. Psychiatric : alert & oriented x 3. Matching mood & appropriate affect. Judgment & insight intact. Musculoskeletal : Cervical Spine Motor strength in the deltoid and biceps: Normal right side. Normal Left side Motor strength biceps and the wrist extensors: Normal right side . Normal left side Motor strength in the triceps muscle: Normal right side. Normal left side Deep tendon reflexes: Normal at the biceps. Normal at Brachioradialis. Normal at triceps Vertebral body tenderness to deep palpation over Cervical facet loading test: positive bilaterally Spurling test: positive bilaterally Neck distraction test: positive bilaterally Joselyn sign: positive bilaterally Lumbar spine Motor strength lower extremities ,thigh and legs 5/5 Right side , 5/5 Left side Deep tendon reflexes : Normal Knee Jerk. Normal Ankle Jerk Vertebral body tenderness over L5 Stewart test positive BL L5-S1 Lumbar facet Loading Test: positive Right / positive Left Range of motion of the lumbar spine Flexion 30 degrees, extension 10 degrees Straight Leg Raise test: Left/ Right positive at degree Raegan test: positive right / positive left. Severe tenderness over the Sacroiliac joint on the Right / Left sides Gaenslen test: positive bilaterally Seated flexion test: positive bilaterally. Sacral spine : Severe tenderness over the Sacroiliac joint: right side / left side Range of motion: Flexion of the lumbar spine <60 degrees Range of motion: Extension of the lumbar spine <20 degrees Gaenslen's Test positive Yevgeniy's Test positive Raegan test: positive right side / left side Thigh Thrust Test Sacral Thrust Test Imaging: MRI without contrast of the lumbar spine from 10/28/22 reviewed Assessment/ Plan : Lumbar spondylosis Recommendation of NINOSKA L5-S1 #1. May need a series of injections for optimal pain relief. Risks, benefits of procedure discussed and patient verbalized understanding. Admits to aspirin or anti- coagulant use or medical history of diabetes. Protocol for discontinuation/ continuation of medications aurora procedure discussed. All questions answered. I have spent greater than 30 minutes on patient care today. Dr Hutchins was available by phone for the evaluation of this patient. The time was used to review the medical records including relevant urine studies and Prescription history (MAPs), review of the available imaging, evaluation and examination of the patient, coordination of care with the medical staff and if applicable referring physicians, as well as creation of the medical record PQRS Narrative: Smoking Status Former smoker Hx Alcohol Use (MH) No Home Medications: Ambulatory Orders Atorvastatin [Lipitor] 40 mg PO DAILY@189910/20/22 Tamsulosin [Flomax] 0.4 mg PO DAILY@189910/20/22 Acetaminophen Tab [Tylenol] 650 mg PO Q6HR PRN tab 03/31/23 Melatonin 5 mg PO HS PRN tab 03/31/23 Sodium Chloride 0.65% Nasal [Deep Sea (Saline)] 2 spray NASAL QID PRN ml 03/31 Cyclobenzaprine [Flexeril] 5 mg PO TID@0700,1500,2300 06/22/23 HYDROcodone/APAP 5-325MG [[place] 5-325] 1 tab PO Q6H PRN 06/22/23 Potassium Chloride ER [K-Dur 10] 10 meq PO DAILY@189906/22/23 Rivaroxaban [Xarelto] 20 mg PO DAILY@189906/22/23 Torsemide [Demadex] 40 mg PO BID@0700,189906/22/23 Controlled Substance Measures - Controlled Substance Measures Is patient prescribed a controlled substance at discharge?: No
== END ==
LOC: PNWHC3 08:36
PROVIDERS: ATTEND Specialist
DX: M96.1 Postlaminectomy syndrome, not elsewhere classified (principal); M46.46 Discitis, unspecified, lumbar region; M47.816 Spondylosis without myelopathy or radiculopathy, lumbar region; Z87.891 Personal history of nicotine dependence; Z88.8 Allergy status to other drugs, medicaments and biological substances; Z88.0 Allergy status to penicillin; Z88.6 Allergy status to analgesic agent
CPT/HCPCS: 99211

== ENCOUNTER → 2024-01-19 | Day surgery (SDC) | payer MEDICARE ==
[2024-01-14 15:53] VITALS: BMI 38.7
[~2024-01-19] MED LIST: IOPAMIDOL M300 15ML VIAL ONE; LACTATED RINGERS 1,000 ML IV SCH; ROPIVACAINE 5MG/ML 20ML VIAL ONE; methylPREDNISolone ACETATE 80 MG/ML 1 ML VIAL ONE
[2024-01-19 12:45] VITALS: TEMP 97.5
[2024-01-19 12:56] LABS: Glucose,Whole Blood 182 mg/dL (70-110)
--- NOTE | 2024-01-19 13:41 | P.PCN ---
Description of Procedure: PREOPERATIVE DIAGNOSIS: 1- Lumbar Degenerative Disc Diseases 2-Lumbar spondylosis with Facet arthropathy without myelopathy. 3-lumbar spinal stenosis POSTOPERATIVE DIAGNOSIS: 1-lumbar degenerative disc disease. 2-lumbar spondylosis with facet arthropathy without myelopathy. 3-lumbar spinal stenosis. PROCEDURE Injection of radio contrast material into L5-S1 interspace, interpretation of epidurogram, injection of steroid at L5-S1 epidural space under fluoroscopic guidance. ANESTHESIA: Lidocaine 1% subcutaneously. In OR continuous pulse ox, EKG, blood pressure and verbal communication was maintained with the patient. EBL: Minimal PROCEDURE INDICATION: Before the procedure were discussed with the patient detailed procedure, alternatives, complications including infection, bleeding, nerve damage, paralysis all of which could be permanent. Patient understands and all questions were answered. PROCEDURE DESCRIPTION : After getting consent, patient in OR in prone position. Back was prepped with chlorhexidine and draped in sterile fashion. After injecting 10 mL of 1% lidocaine subcutaneously, a 20-gauge Tuohy needle was introduced at L5-S1 interspace with loss of resistance technique using a syringe filled with air. Negative CSF, negative blood, negative paresthesia. Needle position was confirmed with AP and lateral view of the fluoroscope. After repeat negative aspiration 2 mL of Omnipaque 200 water soluble contrast was injected. Contrast was noted in the epidural space. No contrast was noted into intrathecal or intravascular space. After repeat negative aspiration 6 mL solution was injected intermittently which consists of 5 mL of preservative-free normal saline mixed with 1 mL of 80 mg Depo-Medrol. Needle was withdrawn intact. Skin was cleansed and Band-Aids was applied. DISPOSITION / PLANS: The patient tolerated the procedure well. No complication. The patient was placed in a supine position and transferred to the recovery area in a stable condition for observation. There was no evidence of lower extremity motor or sensory deficit after the procedure. Patient was discharged from the recovery room after meeting discharge criteria. Home discharge instructions were given to the patient by the staff. The patient was reexamined prior to discharge. The patient will schedule a follow up in the clinic in 2-4 weeks.
[2024-01-19 13:42] VITALS: RESP 16
[2024-01-19 13:57] VITALS: BP 141/86; PULSE 84
--- NOTE | 2024-01-19 17:42 | FL ---
EXAMINATION TYPE: FL guided pain mgmt statistic Intraoperative/procedural fluoroscopic services were provided. Total fluoroscopy time is 9.3 seconds with a total of 2 submitted images to PACS. Please se e the operative/procedural note for further details. DAP: [id number] mGym2
== END ==
LOC: ORPAIN 11:55
PROVIDERS: ATTEND Pain Medicine Interventional Pain Medicine
DX: M48.061 Spinal stenosis, lumbar region without neurogenic claudication (principal); M47.816 Spondylosis without myelopathy or radiculopathy, lumbar region; M51.36 Other intervertebral disc degeneration, lumbar region; E11.9 Type 2 diabetes mellitus without complications; Z79.01 Long term (current) use of anticoagulants; Z79.899 Other long term (current) drug therapy; Z88.0 Allergy status to penicillin; Z88.8 Allergy status to other drugs, medicaments and biological substances
CPT/HCPCS: 62323; Q9967; J2795; J1010

== ENCOUNTER → 2024-05-27 | Outpatient (CLI) | payer MEDICARE | END | disposition home or self-care (01) | LOC: LABWHC1 12:21 | PROVIDERS: ATTEND Family Medicine | DX: Z53.9 Procedure and treatment not carried out, unspecified reason (principal) ==

== ENCOUNTER → 2024-05-27 | Outpatient (CLI) | payer MEDICARE ==
[2024-05-27 15:04] LABS: Basophils # (A) 0.07 X 10*3/uL (0.00-0.10); Eosinophils # (A) 0.34 X 10*3/uL (0.04-0.35); Eosinophils % (A) 5.1 %; HCT 41.7 % (39.6-50.0); HGB 14.2 g/dL (13.0-17.0); Lymphocytes # (A) 1.49 X 10*3/uL (0.90-5.00); Lymphocytes % (A) 22.2 %; MCH 29.3 pg (27.0-32.0); MCHC 34.1 g/dL (32.0-37.0); MCV 86.2 FL (80.0-97.0); Mean Platelet Volume 9.8 FL (9.5-12.2); Monocytes # (A) 0.67 X 10*3/uL (0.20-1.00); NRBC Per 100 WBC 0 X 10*3/uL (0.00-0.01); Neutrophils % (A) 61.3 %; Platelet Count 253 X 10*3/uL (140-440); RBC 4.84 X 10*6/uL (4.40-5.60); RDW 14.3 % (11.5-14.5)
[2024-05-27 15:34] LABS: ALT 11 U/L (10-49); AST 18 U/L (14-35); Albumin 3.2 g/dL (3.8-4.9); Alkaline Phosphatase 87 U/L (41-126); Blood Urea Nitrogen 35.1 mg/dL (9.0-27.0); Calcium 8.9 mg/dL (8.7-10.3); Carbon Dioxide 22.2 mmol/L (21.6-31.8); Chloride 94 mmol/L (96-109); Chol/HDL Ratio 7.29 Ratio; Globulin 3.2 g/dL (1.6-3.3); Glucose 441 mg/dL (70-110); Potassium 3.8 mmol/L (3.5-5.5); Sodium 132 mmol/L (135-145); Total Bilirubin 0.3 mg/dL (0.3-1.2); Total Protein 6.4 g/dL (6.2-8.2)
== END | disposition home or self-care (01) ==
LOC: LABWHC1 12:18
PROVIDERS: ATTEND Nurse Practitioner Adult Health
DX: I48.0 Paroxysmal atrial fibrillation (principal)
CPT/HCPCS: 36415; 80053; 80061; 82306; 83721; 84443; 85025

== ENCOUNTER → 2024-06-22 | Outpatient (CLI) | payer MEDICARE ==
[2024-06-22 19:09] LABS: Basophils # (A) 0.06 X 10*3/uL (0.00-0.10); Eosinophils # (A) 0.28 X 10*3/uL (0.04-0.35); Eosinophils % (A) 4.6 %; HCT 46.1 % (39.6-50.0); HGB 15.1 g/dL (13.0-17.0); Lymphocytes # (A) 1.67 X 10*3/uL (0.90-5.00); Lymphocytes % (A) 27.6 %; MCH 28.6 pg (27.0-32.0); MCHC 32.8 g/dL (32.0-37.0); MCV 87.3 FL (80.0-97.0); Mean Platelet Volume 10.1 FL (9.5-12.2); Monocytes # (A) 0.59 X 10*3/uL (0.20-1.00); Monocytes % (A) 9.7 %; NRBC Per 100 WBC 0 X 10*3/uL (0.00-0.01); Neutrophils # (A) 3.42 X 10*3/uL (1.80-7.70); Neutrophils % (A) 56.4 %; Platelet Count 264 X 10*3/uL (140-440); RBC 5.28 X 10*6/uL (4.40-5.60); RDW 14.3 % (11.5-14.5); WBC 6.06 X 10*3/uL (4.50-10.00)
[2024-06-22 19:17] LABS: ALT 9 U/L (10-49); AST 21 U/L (14-35); Albumin 3.1 g/dL (3.8-4.9); Albumin/Globulin Ratio 1.03 Ratio (1.60-3.17); Alkaline Phosphatase 88 U/L (41-126); BUN/Creat Ratio 31.45 Ratio (12.00-20.00); Blood Urea Nitrogen 34.6 mg/dL (9.0-27.0); Calcium 9.2 mg/dL (8.7-10.3); Carbon Dioxide 24.2 mmol/L (21.6-31.8); Chloride 96 mmol/L (96-109); Glucose 353 mg/dL (70-110); Sodium 135 mmol/L (135-145); Total Bilirubin 0.2 mg/dL (0.3-1.2); Total Protein 6.1 g/dL (6.2-8.2)
== END | disposition home or self-care (01) ==
LOC: LABWHC1 13:03
PROVIDERS: ATTEND Family Medicine
DX: E11.65 Type 2 diabetes mellitus with hyperglycemia (principal); E78.5 Hyperlipidemia, unspecified
CPT/HCPCS: 36415; 80053; 80061; 83036; 83721; 85025

== ENCOUNTER → 2024-07-02 | Outpatient (CLI) | payer MEDICARE | END | disposition home or self-care (01) | LOC: LABWHC1 08:33 | PROVIDERS: ATTEND Family Medicine | DX: E11.65 Type 2 diabetes mellitus with hyperglycemia (principal); E78.5 Hyperlipidemia, unspecified | CPT/HCPCS: 36415; 83036 ==